=== PATIENT | female | born 1955 | race Caucasian/White ===

== ENCOUNTER 2022-11-02 09:17 | Outpatient (OUT) | payer MEDICARE, SELFPAY ==
[2022-11-02 10:28] LABS: Albumin Level 3.8 g/dL (3.4-5.0); BUN Creatinine Ratio 22.3; Calcium 8.7 mg/dL (8.5-10.1); Carbon Dioxide 26.4 mmol/L (21.0-32.0); Chloride 104 mmol/L (98-107); Chol HDL Ratio 2.2; Cholesterol 153 mg/dL (<=200); Estimated GFR (African America >60 (>=60); Estimated GFR (Non-African Ame 53 (>=60); Glucose 99 mg/dL (74-106); HDL Cholesterol 71 mg/dL (40-60); Phosphorus 3.4 mg/dL (2.6-4.7); Potassium 4.4 mmol/L (3.5-5.1); Sodium 139 mmol/L (136-145); Triglycerides 79 mg/dL (<=150); VLDL CHOLESTEROL 15.8 mg/dL
[2022-11-02 12:15] LABS: Microalbumin Urine Random <1.3 mg/dL (<=30.0)
[2022-11-03 13:08] LABS: C-Peptide, Serum 3.8 ng/mL (1.1-4.4)
== END 2022-11-02 09:18 | disposition home or self-care (01) ==
LOC: LAB 09:23
PROVIDERS: PCP Nurse Practitioner; Visit Provider Internal Medicine
DX: R79.89 Other specified abnormal findings of blood chemistry (principal); E11.65 Type 2 diabetes mellitus with hyperglycemia; E55.9 Vitamin D deficiency, unspecified; Z71.3 Dietary counseling and surveillance
CPT/HCPCS: 36415; 80061; 80069; 82043; 82306; 84681

== ENCOUNTER 2022-12-18 08:13 | Outpatient (OUT) | payer MEDICARE, SELFPAY ==
[2022-12-18 09:31] LABS: Chol HDL Ratio 2.1; Cholesterol 153 mg/dL (<=200); HDL Cholesterol 72 mg/dL (40-60); Triglycerides 66 mg/dL (<=150); VLDL CHOLESTEROL 13.2 mg/dL
== END 2022-12-18 08:14 | disposition home or self-care (01) ==
LOC: LAB 08:16
PROVIDERS: PCP Family Medicine
DX: Z00.00 Encounter for general adult medical examination without abnormal findings (principal); E78.5 Hyperlipidemia, unspecified
CPT/HCPCS: 36415; 80061

== ENCOUNTER 2022-12-18 08:20 | Outpatient (OUT) | payer MEDICARE, SELFPAY ==
[2022-12-18 08:53] LABS: Basophils Percent Auto 0.6 % (0.2-2.0); Eosinophils Absolute Auto 0.3 10^3/uL (0.0-0.7); Eosinophils Percent Auto 4.2 % (0.9-7.0); Hemoglobin 11.2 g/dL (12.0-16.0); Immature Granulocytes Abs Auto 0.02 10^3/uL (0.00-0.03); Immature Granulocytes Pct Auto 0.3 % (0.0-0.5); Lymphocytes Absolute Auto 2.6 10^3/uL (1.2-3.8); Lymphocytes Percent Auto 38.1 % (20.5-60.0); Mean Corpuscular Hemoglobin 29.7 pg (26.7-34.0); Mean Corpuscular Volume 92.8 fL (81.0-99.0); Monocytes Absolute Auto 0.8 10^3/uL (0.3-0.8); Monocytes Percent Auto 11.6 % (1.7-12.0); Neutrophils Absolute Auto 3.1 10^3/uL (1.4-6.5); Neutrophils Percent Auto 45.2 % (43.0-75.0); Platelet Count 253 10^3/uL (150-450); Red Blood Count 3.77 10^6/uL (4.20-5.40); Red Cell Distribution Width 13.2 % (11.0-15.0); White Blood Count 6.8 10^3/uL (4.0-11.0)
[2022-12-18 09:05] LABS: Erythrocyte Sedimentation Rate 30 mm/hr (<=30)
[2022-12-18 09:29] LABS: Alanine Aminotransferase 43 U/L (14-59); Albumin Level 3.6 g/dL (3.4-5.0); Alkaline Phosphatase 96 U/L (46-116); Anion Gap 12.1; Aspartate Amino Transferase 27 U/L (15-37); BUN Creatinine Ratio 26.7; Bilirubin Total 0.3 mg/dL (0.2-1.0); C Reactive Protein <0.2 mg/dL (<=1.0); Calcium 8.6 mg/dL (8.5-10.1); Carbon Dioxide 26.2 mmol/L (21.0-32.0); Chloride 105 mmol/L (98-107); Estimated GFR (African America >60 (>=60); Estimated GFR (Non-African Ame 54 (>=60); Globulin 3.6 g/dL; Glucose 106 mg/dL (74-106); Potassium 4.3 mmol/L (3.5-5.1); Sodium 139 mmol/L (136-145); Total Protein 7.2 g/dL (6.4-8.2)
== END 2022-12-18 08:21 | disposition home or self-care (01) ==
LOC: LAB 08:23
PROVIDERS: PCP Family Medicine; Visit Provider Internal Medicine Rheumatology
DX: Z00.00 Encounter for general adult medical examination without abnormal findings (principal); E78.5 Hyperlipidemia, unspecified; M06.9 Rheumatoid arthritis, unspecified
CPT/HCPCS: 36415; 80053; 80061; 85025; 85652; 86140

== ENCOUNTER 2023-02-15 08:47 | Outpatient (OUT) | payer MEDICARE, SELFPAY ==
--- NOTE | 2023-02-15 08:50 | XR_ITS ---
[address] [address] Patient Name: LJ DOLL MRN: [id number] date: 1955 Sex: F Assigned Patient Location: [facility] Current Patient Location: [facility] Accession/Order Number: [id number] Exam Date: 02/15/2023 09:04 Report Date: 02/15/2023 09:46 At the request of: MATT VILCHIS Procedure: XR DEXA axial skeleton EXAMINATION: XR DEXA axial skeleton HISTORY: Osteoporosis M81.0 COMPARISON: DEXA bone densitometry 07/14/2018 TECHNIQUE: Dual-energy X-ray absorptiometry (DXA) was performed. FINDINGS: SPINE ANALYSIS: Average bone mineral density is 1.818 g/cm2. T-score (standard deviation relative to young adult mean): 5.3 . +14.7% change since prior study. HIP ANALYSIS: Lowest bone mineral density is within the right femoral neck, 0.72 g/cm2. T-score (standard deviation relative to young adult mean): -1.8 . -3.8% change since prior study. XR/XR DEXA axial skeleton IMPRESSION: World [employer] Organization Classification: Osteopenia - Moderate Fracture Risk Electronically authenticated by: CHAPIN OROSCO Date: 02/15/2023 09:46
--- OUTSIDE RECORDS SUMMARY | 2023-03-23 18:45 | XMS_ITS | CCD ---
Author Name Unknown Address [address] [place] [address] Organization [facility] Care Team Providers Care Child Welfare Manager Name Role Phone PAYAM YU Unavailable Unavailable FOSTER, PAYAM Unavailable Unavailable FOSTER, PAYAM Unavailable Unavailable FOSTER, PAYAM Unavailable Unavailable UNKNOWN, PROVIDER Attending Unavailable HALIE, BREE Primary Care Unavailable UNKNOWN, PROVIDER Attending Unavailable AMBROSE, BREE Primary Care Unavailable UNKNOWN, PROVIDER Attending Unavailable AMBROSE, BREE Primary Care Unavailable UNKNOWN, PROVIDER Attending Unavailable HALIE, BREE Primary Care Unavailable UNKNOWN, PROVIDER Attending Unavailable HALIE, BREE Primary Care Unavailable Bree Ambrose Unavailable Unavailable Unavailable Dr. Ary Arrieta Attending Unavailable Bree Ambrose Referring Unavailable Halie, Bree Dominique Primary Care Unavailable Maranda, Dr. Kenroy Real Attending Bree Le Referring Unavailable Halie, Bree Dominique Primary Care Unavailable AMBROSE ., DR BREE Cisneros Admitting Unavailable AMBROSE ., DR BREE Cisneros Attending Unavailable AMBROSE ., DR BREE Cisneros Primary Care Unavailable NELDA, DR SARKAR Admitting Unavailable AMBROSE ., DR BREE Cisneros Primary Care Unavailable NELDA, DR SARKAR Attending Unavailable NELDA, DR SARKAR Consulting Unavailable HALIE ., DR BREE Cisneros Primary Care Unavailable MISC, DR LYLES Admitting Unavailable MISC, DR LYLES Attending Unavailable MISC, DR LYLES Consulting Unavailable AMBROSE ., DR BREE Cisneros Primary Care Unavailable KAMILAH, DR HUMA Falcon Admitting Unavailable KAMILAH, DR HUMA Falcon Attending Unavailable BREE AMBROSE Primary Care Physician ANNE JAIN Attending Unavailable HUMA TRIANA Attending Unavailable MD Bree Ambrose Primary Care Provider MD Fransisco Benavides Attending Provider Micaela Palomino Admitting Unavailable Micaela Palomino Attending Unavailable Arley Keller Attending Unavailable Arley Keller Attending Unavailable Arley Keller Attending Unavailable Micaela Palomino Attending Unavailable Micaela Palomino Attending Unavailable Arley Keller Attending Unavailable Micaela Palomino Attending Unavailable BREE AMBROSE Attending Unavailable Fransisco Benavides Attending Unavailable Fransisco Benavides Admitting Unavailable Bree Ambrose Primary Care Unavailable Allergies Allergy Classification Reported Allergen(s) Allergy Type Date of Onset Reaction(s) Facility (5 sources) adalimumab; Translations: [Humira] Drug Allergy Rash, Hives [facility] (4 sources) Hmg-Coa Reductase Inhibitors (Statins); Translations: [Statins] Allergy to drug (finding) [facility] (5 sources) oxaprozin; Translations: [Daypro] Drug Allergy INEFFECTIVE [facility] (3 sources) Antihistamine TABS; Translations: [Antihistamine TABS] Allergy to drug (finding) [facility] [address] [facility] Work Phone: (2 sources) black walnut pollen extract; Translations: [ZUOPIUD-HRA-MBQ REDUCTASE INHIBITORS] Drug Allergy 4 [facility] Repository (2 sources) Diclofenac; Translations: [DICLOFENAC] Drug Allergy 5 [facility] Repository (1 source) diphenhydrAMINE Drug Allergy 3 [facility] Repository (1 source) oxaprozin Drug Allergy 3 [facility] Repository (3 sources) diphenhydrAMINE; Translations: [diphenhydramine] Drug Allergy 3 VERY FOGGY BRAIN [facility] (1 source) HMG-CoA reductase inhibitor; Translations: [statins] Drug allergy MUSCLE CRAMPS [facility] (1 source) Acetaminophen / oxyCODONE; Translations: [OXYCODONE-ACETAMIN OPHEN] Drug Allergy 7 [facility] Repository (1 source) adalimumab; Translations: [ADALIMUMAB] Drug Allergy 3 [facility] Repository (1 source) oxaprozin; Translations: [OXAPROZIN] Drug Allergy 3 [facility] Repository Medications Current Medications Medication Drug Class(es) Dates Sig (Normalized) Sig (Original) acetaminophen 325 mg / HYDROcodone bitartrate 5 mg oral tablet (1 source) Opioid Agonist Start: 01-20-2021 [place] 325 mg-5 mg oral tablet 1 tab(s), Oral, q6hr for pain, 20 tab(s), Refill(s) 0, [facility]/pharmacy #[id number], 162, cm, 01/14/21 5:03:00 EDT, Height/Length Dosing, 100, kg, 01/14/21 5:03:00 EDT, Weight Dosing Start Date: 01/20/21 Status: Ordered amitriptyline hydrochloride 25 mg oral tablet (4 sources) Tricyclic Antidepressant Start: 01-13-2021 take 1 tablet by mouth once daily at bedtime amitriptyline 25 mg Tab 25 mg = 1 tab(s), Oral, Once a day (at bedtime), Refills(s) 0, Other (see comment) Start Date: 01/13/21 Status: Ordered Amitriptyline HC l TABS TAKE 1/2 tab at bedtime Quantity: 0 Refills: 0 Ordered: 21-Jul-2017 DO Active Calcium Citrate / Vitamin D (1 source) Start: 01-13-2021 take 1 tablet by mouth once daily calcium-vitamin D 1 TAB, Oral, Daily, Prophylaxis Start Date: 01/13/21 Status: Ordered carvedilol 3.125 mg oral tablet (4 sources) alpha-Adrenergi c Keenan, beta-Adrenergic Keenan Start: 01-13-2021 take 1 tablet by mouth twice daily carvedilol 3.125 mg Tab 3.125 mg = 1 tab(s), Oral, BID, Refills(s) 0, High blood pressure Start Date: 01/13/21 Status: Ordered take 1 tablet by mariluz th twice daily at mealtime Coreg 6.25 MG Oral Tablet TAKE 1 TABLET TWICE DAILY WITH MEALS. Quantity: 0 Refills: 0 Ordered: 12-Apr-2018 DO Active Celebrate Multivitamin oral capsule (1 source) Start: 01-13-2021 take 1 capsule by mouth once daily Celebrate Multivitamin oral capsule 1 cap(s), Oral, Daily, Prophylaxis Start Date: 01/13/21 Status: Ordered celecoxib 200 mg oral capsule (4 sources) Nonsteroidal Anti-inflammator y Drug Start: 01-13-2021 take 1 capsule by mouth once daily celecoxib 200 mg Cap 200 mg = 1 cap(s), Oral, Daily, Refills(s) 0, Inflammation Start Date: 01/13/21 Status: Ordered Erythromycin (1 source) Macrolide, Macrolide Antimicrobial Start: 01-20-2021 erythromycin ophthalmic 0.5% ointment 0.5 in, Eye-Both, QID, 3.5 gram, Refill(s) 1, [facility]/pharmacy #[id number], 162, cm, 01/14/21 5:03:00 EDT, Height/Length Dosing, 100, kg, 01/14/21 5:03:00 EDT, Weight Dosing Start Date: 01/20/21 Status: Ordered Enbrel (1 source) Tumor Necrosis Factor Keenan Start: 01-13-2021 inject 50 mg by subcutaneous injection every week Enbrel 50 mg, SubCutaneous, qWeek, Other (see comment) Start Date: 01/13/21 Status: Ordered furosemide 20 mg oral tablet (1 source) Loop Diuretic Start: 01-13-2021 take 1 tablet by mouth once daily furosemide 20 mg Tab 20 mg = 1 tab(s), Oral, Daily, Refills(s) 0, Other (see comment) Start Date: 01/13/21 Status: Ordered gabapentin 100 mg oral capsule (1 source) Anti-epileptic Agent Start: 01-13-2021 take 2 capsules by mouth at bedtime gabapentin 100 mg Cap 200 mg = 2 cap(s), Oral, Bedtime, Refills(s) 0, Other (see comment) Start Date: 01/13/21 Status: Ordered glucosamine sulfate 500 mg oral capsule (1 source) Start: 01-13-2021 take 1 capsule by mouth once daily glucosamine 500 mg Cap 500 mg = 1 cap(s), Oral, Daily, Prophylaxis Start Date: 01/13/21 Status: Ordered hydroxychloroquine sulfate 200 mg oral tablet (4 sources) Antimalarial, Antirheumatic Agent Start: 01-13-2021 take 1 tablet by mouth twice daily hydroxychloroquine 200 mg Tab 200 mg = 1 tab(s), Oral, BID, Refills(s) 0, Other (see comment) Start Date: 01/13/21 Status: Ordered 3 ml insulin glargine 100 unt/ml pen injector (4 sources) Insulin Analog Start: 01-13-2021 Lantus Solostar Pen 100 units/mL subcutaneous solution 30 unit(s), SubCutaneous, Daily, Refills(s) 0, Blood glucose Start Date: 01/13/21 Status: Ordered inject 10 [IU] by gonzalez bcutaneous injection twice daily Lantus SoloStar 100 UNIT/ML Subcutaneous Solution Pen-injector 10 units BID Quantity: 0 Refills: 0 Ordered: 21-Jul-2017 DO Active Insulin Lispro KwikPen 100 units/mL injectable solution (1 source) Start: 01-13-2021 Insulin Lispro KwikPen 100 units/mL injectable solution SubCutaneous, BIDAC, Refills(s) 0, Blood glucose Start Date: 01/13/21 Status: Ordered lisinopril 5 mg oral tablet (1 source) Angiotensin Converting Enzyme Inhibitor Start: 01-13-2021 take 2.5 mg by mouth once daily lisinopril 5 mg Tab 2.5 mg = 0.5 tab(s), Oral, Daily, Refills(s) 0, High blood pressure Start Date: 01/13/21 Status: Ordered metFORMIN hydrochloride 850 mg oral tablet (4 sources) Biguanide Start: 01-13-2021 take 1 tablet by mouth twice daily metformin 850 mg oral tablet 850 mg = 1 tab(s), Oral, BID, Refills(s) 0, Blood glucose Start Date: 01/13/21 Status: Ordered nitrofurantoin, macrocrystals 25 mg / nitrofurantoin, monohydrate 75 mg oral capsule (1 source) Nitrofuran Antibacterial Start: 06-30-2022 End: 07-07-2022 take 1 capsule by mouth twice daily Macrobid 100 mg Cap 100 mg = 1 cap(s), Oral, BID, X 7 day(s), # 14 cap(s), Refills(s) 0, Pharmacy: [facility]/pharmacy #[id number], 162, cm, 06/30/22 15:22:00 EDT, Height/Length Dosing, 93, kg, 06/30/22 15:22:00 EDT, Weight Dosing Start Date: 06/30/22 Stop Date: 07/07/22 Status: Ordered pantoprazole 40 mg delayed release oral tablet (4 sources) Proton Pump Inhibitor Start: 01-13-[address] Tab 40 mg = 1 tab(s), Oral, Daily, Refills(s) 0, Control of stomach acid Start Date: 01/13/21 Status: Ordered rosuvastatin calcium 5 mg oral tablet (1 source) HMG-CoA Reductase Inhibitor Start: 01-13-2021 take 1 tablet by mouth once daily at bedtime rosuvastatin 5 mg Tab 5 mg = 1 tab(s), Oral, Once a day (at bedtime), Refills(s) 0, Other (see comment) Start Date: 01/13/21 Status: Ordered sertraline 50 mg oral tablet (4 sources) Serotonin Reuptake Inhibitor Start: 01-13-2021 take 1 tablet by mouth once daily sertraline 50 mg Tab 50 mg = 1 tab(s), Oral, Daily, Refills(s) 0, Other (see comment) Start Date: 01/13/21 Status: Ordered Sertraline HCl - 50 MG Oral Tablet Quantity: 0 Refills: 0 Ordered: 12-Apr-2018 DO Active Completed/Discontinued Medications Medication Drug Class(es) Dates Sig (Normalized) Sig (Original) aspirin 81 mg delayed release oral tablet (3 sources) Platelet Aggregation Inhibitor, Nonsteroidal Anti-inflammatory Drug take 1 tablet by mouth once daily Aspirin 81 MG Oral Tablet Delayed Release TAKE 1 TABLET DAILY. Quantity: 0 Refills: 0 Ordered: 21-Jul-2017 DO Active Calcium Carbonate (3 sources) Tums E-X 750 LÁZARO W TAKE DIRECTED. Quantity: 0 Refills: 0 Ordered: 21-Jul-2017 DO Active 3 ml insulin lispro 100 unt/ml pen injector (3 sources) Insulin Analog HumaLOG KwikPen 100 UNIT/ML Subcutaneous Solution Pen-injector INJECT SUBCUTANEOUSLY DIRECTED. Quantity: 0 Refills: 0 Ordered: 21-Jul-2017 DO Active metoprolol tartrate 25 mg oral tablet (3 sources) beta-Adrenergic Keenan take 1 tablet by mouth twice daily Metoprolol Tartrate 25 MG Oral Tablet TAKE 1 TABLET TWICE DAILY. Quantity: 0 Refills: 0 Ordered: 21-Jul-2017 DO Active Multivitamins TABS (3 sources) Multivitamins TA BS TAKE 1 TABLET DAILY. Quantity: 0 Refills: 0 Ordered: 21-Jul-2017 DO Active tiZANidine 2 mg oral capsule (3 sources) Central alpha-2 Adrenergic Agonist take 1 capsule by mouth once daily at bedtime as needed Zanaflex 2 MG Oral Capsule 1 po qhs prn Quantity: 0 Refills: 0 Ordered: 21-Jul-2017 DO Active Problems Active Problems Problem Classification Problem Date Documented Da te Episodic/Chronic Chronic kidney disease (1 source) Chronic kidney disease stage 4 06-30-2022 Chronic Coronary atherosclerosis and other heart disease (2 sources) Atherosclerotic heart disease of [place] coronary artery without angina pectoris; Translations: [Atherosclerotic heart disease of [place] coronary artery without angina pectoris] Onset: 3 Chronic Diabetes mellitus with complications (4 sources) Type 2 diabetes mellitus with diabetic neuropathy, unspecified; Translations: [TYPE 2 DM W/DIABETIC NEUROPATHY UNS] Onset: 3 Chronic Diabetes mellitus without complication (1 source) Diabetes mellitus 01-13-2021 Chronic Disorders of lipid metabolism (3 sources) Hyperlipidemia; Translations: [Mixed hyperlipidemia] Onset: 3 06-30-2022 Chronic Essential hypertension (1 source) Hypertensive disorder 01-13-2021 Chronic Immunizations and screening for infectious disease (3 sources) Requires vaccination; Translations: [Need for prophylactic vaccination and inoculation against viral hepatitis] Episodic Infective arthritis and osteomyelitis (except that caused by tuberculosis or sexually transmitted disease) (1 source) 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-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 Occlusion or stenosis of precerebral arteries (1 source) Left carotid artery occlusion 06-30-2022 Chronic Osteoarthritis (3 sources) Osteoarthritis; Translations: [Osteoarthrosis, unspecified whether generalized or localized, site unspecified] Chronic Osteoporosis (1 source) Age-related osteoporosis without current pathological fracture; Translations: [Age-related osteoporosis without current pathological fracture] Onset: 3 Chronic Other and ill-defined heart disease (2 sources) Other ill-defined heart diseases; Translations: [Other ill-defined heart diseases] Onset: 3 Chronic Other circulatory disease (1 source) Raynaud's phenomenon 06-30-2022 Chronic Other connective tissue disease (2 sources) Presence of left artificial knee joint; Translations: [Presence of left artificial knee joint] Onset: 8 Chronic Other connective tissue disease (3 sources) H/O: musculoskeletal disease; Translations: [Personal history of other musculoskeletal disorders] Episodic Other connective tissue disease (1 source) Repeated falls; Translations: [REPEATED FALLS] Onset: 3 Episodic Other connective tissue disease (1 source) History of osteoporosis 01-13-2021 Episodic Other eye disorders (1 source) Ptosis of eyelid 01-13-2021 Episodic Other gastrointestinal disorders (3 sources) History of gastroesophageal reflux disease; Translations: [Personal history of other diseases of digestive system] Episodic Other hereditary and degenerative nervous system conditions (4 sources) Essential tremor; Translations: [ESSENTIAL TREMOR] Onset: 3 Chronic Other injuries and conditions due to external causes (1 source) History of falling; Translations: [HISTORY OF FALLING] Onset: 3 Episodic Other liver diseases (7 sources) Fatty (change of) liver, not elsewhere classified; Translations: [Fatty (change of) liver, not elsewhere classified] Onset: 9 Chronic Other liver diseases (3 sources) Hepatic fibrosis; Translations: [Hepatic fibrosis] Onset: 8 Chronic Other liver diseases (3 sources) Non-alcoholic fatty liver; Translations: [Other chronic nonalcoholic liver disease] Chronic Other liver diseases (1 source) Steatosis of liver 06-30-2022 Chronic Other liver diseases (3 sources) Alkaline phosphatase bone isoenzyme raised; Translations: [Other nonspecific abnormal serum enzyme levels] Episodic Other nervous system disorders (1 source) Lesion of sciatic nerve, unspecified lower limb; Translations: [LESION SCIATIC NERVE UNS LOWER LIMB] Onset: 2 Chronic Other nervous system disorders (1 source) Other abnormalities of gait and mobility; Translations: [OTHER ABNORMALITIES GAIT AND MOBILITY] Onset: 3 Episodic Other nervous system disorders (1 source) Unspecified abnormalities of gait and mobility; Translations: [UNS ABNORMALITIES GAIT AND MOBILITY] Onset: 3 Episodic Other non-traumatic joint disorders (3 sources) Polyarthropathy; Translations: [Unspecified polyarthropathy or polyarthritis, site unspecified] Chronic Other nutritional; endocrine; and metabolic disorders (3 sources) H/O: diabetes mellitus; Translations: [Personal history of other endocrine, metabolic, and immunity disorders] Episodic Other nutritional; endocrine; and metabolic disorders (3 sources) H/O: raised blood lipids; Translations: [Personal history of other endocrine, metabolic, and immunity disorders] Episodic Other screening for suspected conditions (not mental disorders or infectious disease) (3 sources) Imaging result abnormal; Translations: [Other nonspecific (abnormal) findings on radiological and other examinations of body structure] Chronic Other screening for suspected conditions (not mental disorders or infectious disease) (3 sources) Patient encounter status; Translations: [Special screening for malignant neoplasms of colon] Episodic Residual codes; unclassified (1 source) Obstructive sleep apnea syndrome 06-30-2022 Chronic Rheumatoid arthritis and related disease (1 source) Rheumatoid arthritis 01-13-2021 Chronic Screening and history of mental health and substance abuse codes (3 sources) H/O: depression; Translations: [Personal history of other mental disorders] Episodic Spondylosis; intervertebral disc disorders; other back problems (3 sources) Disorder of sacrum; Translations: [Disorders of sacrum] Episodic Past or Other Problems Problem Classification Problem Date Documented Da te Episodic/Chronic Deficiency and other anemia (1 source) Anemia Onset: 03-30-2019 06-30-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 Other connective tissue disease (4 sources) Other muscle spasm; Translations: [OTHER MUSCLE SPASM] Onset: 11-14-2021 Episodic Results Test Name Value Interpretation Reference Range Facil ity Blood Urea Nitrogenon 2022 Urea nitrogen [Mass/Vol] 25 mg/dL Normal 7-25 [facility] Comment on above: Performed By: #### M Leeroy, RENEAS, BUN, CA, CREAT #### [facility] [address] [place] [address] [place] Calciumon 03-16-2023 Calcium [Mass/Vol] 9.2 mg/dL Normal 8.6-10.3 [facility] Comment on above: Performed By: #### M G, PHOS, BUN, CA, CREAT #### [facility] [address] [place] [address] [place] Calcium [Mass/volume] in Ser um or PlasmaOrdered By: Fransisco Benavides on 03-16-2023 Calcium [Mass/Vol] 9.2 mg/dL 8.6-10.3 [facility] Creatinineon 03-16-2023 Creatinine [Mass/Vol] 1.04 mg/dL Normal 0.60-1.20 [facility] Comment on above: Performed By: #### M Leeroy, PHOS, BUN, CA, CREAT #### [facility] [address] [place] [id number] [place] GFR/1.73 sq M.predicted MDRD (S/P/Bld) [Vol rate/Area] 58.180 mL/min/{1.73_m2} Normal [facility] Comment on above: Performed By: #### M Leeroy, PHOS, BUN, CA, CREAT #### [facility] [address] Creatinine [Mass/volume] in Serum or PlasmaOrdered By: Fransisco Benavides on 03-16-2023 Creatinine [Mass/Vol] 1.04 mg/dL 0.60-1.20 [facility] Magnesiumon 03-16-2023 Magnesium [Mass/Vol] 1.5 mg/dL Low 1.9-2.7 [facility] Comment on above: Result Comment: PERF ORMED BY: [place] [address] PATHOLOGIST POULTRY PINNER NELDA TAYLOR M.D. Performed By: #### M Leeroy, PHOS, BUN, CA, CREAT #### [facility] [address] [place] [id number] [facility] Magnesium [Mass/volume] in S melvin or PlasmaOrdered By: Fransisco Benavides on 03-16-2023 Magnesium [Mass/Vol] 1.5 mg/dL 1.9-2.7 [facility] No Panel InformationOrdered By: Fransisco Benavides on 03-16-2023 Estimated GFR (CKD-EPI) 58.180 mL/Min [facility] Creatinine Clearanc e (Chem N/A [facility] Nurse Consultation Noteon Nurse Consultation Note Physical Exam Pt here for POC A1c, pt results 6.0 Assessment/Plan Diabetes (E11.9: Type 2 diabetes mellitus without complications) Medications amitriptyline 25 mg Tab, 25 mg= 1 tab(s), Oral, Once a day (at bedtime), 1 refills aspirin, 81 mg, Daily calcium-vitamin D, 1 TAB, Oral, Daily carvedilol 3.125 mg Tab, 3.125 mg= 1 tab(s), Oral, BID, 3 refills Celebrate Multivitamin oral capsule, 1 cap(s), Oral, Daily Enbrel, 50 mg, SubCutaneous, qWeek erythromycin ophthalmic 0.5% ointment, 0.5 in, Eye-Both, QID, 1 refills, Not taking furosemide 20 mg Tab, 20 mg= 1 tab(s), Oral, Daily, 3 refills gabapentin 100 mg Cap, 200 mg= 2 cap(s), Oral, Bedtime, 1 refills glucosamine 500 mg Cap, 500 mg= 1 cap(s), Oral, Daily hydroxychloroquine 200 mg Tab, 200 mg= 1 tab(s), Oral, BID, 1 refills Insulin Lispro KwikPen 100 units/mL injectable solution, SubCutaneous, BIDAC Lantus Solostar Pen 100 units/mL subcutaneous solution, 25 unit(s), SubCutaneous, Daily lisinopril 5 mg Tab, 2.5 mg= 0.5 tab(s), Oral, Daily, 3 refills metformin 850 mg oral tablet, 850 mg= 1 tab(s), Oral, BID [place] 325 mg-5 mg oral tablet, 1 tab(s), Oral, q6hr, PRN Ozempic 2 mg/1.5 mL (1 mg dose) subcutaneous solution, 1 mg, SubCutaneous, qWeek, 3 refills Pantoprazole [address] Tab, 40 mg= 1 tab(s), Oral, Daily, 3 refills rosuvastatin 5 mg Tab, 5 mg= 1 tab(s), Oral, Once a day (at bedtime), 3 refills sertraline 50 mg Tab, 50 mg= 1 tab(s), Oral, Daily, 3 refills Allergies Antihistamine (VERY FOGGY BRAIN) Daypro (INEFFECTIVE) Humira (Hives) statins (MUSCLE CRAMPS) Immunizations Vaccine Date Status Comments influenza virus vaccine, inactivated 12/22/2022 Recorded SARS-CoV-2 mRNA (dary 5y-11y) vac - Not Given Postpone due to refusal influenza virus vaccine, inactivated 01/22/2022 Recorded influenza virus vaccine, inactivated 01/17/2020 Recorded influenza virus vaccine, inactivated 01/04/2019 Recorded influenza virus vaccine, inactivated 12/31/2017 Recorded influenza virus vaccine, inactivated 02/16/2017 Recorded pneumococcal 23-valent vaccine 04/05/2015 Recorded pneumococcal 13-valent vaccine 11/21/2014 Recorded Lab Results Ambulatory Point of Care Results Hemoglobin POC: 6 (03/16/23 10:34:00) [facility] Phosphate [Mass/volume] in S melvin or PlasmaOrdered By: Fransisco Benavides on 03-16-2023 Phosphate [Mass/Vol] 3.6 mg/dL 2.5-4.5 [facility] Phosphoruson 03-16-2023 Phosphate [Mass/Vol] 3.6 mg/dL Normal 2.5-4.5 [facility] Comment on above: Performed By: #### M G, PHOS, BUN, CA, CREAT #### [facility] [address] Urea nitrogen [Mass/volume] in Serum or PlasmaOrdered By: Fransisco Benavides on 03-16-2023 Urea nitrogen [Mass/Vol] 25 mg/dL 7- [facility] Family Medicine Office/Clini c Noteon 03-03-2023 Family Medicine Office/Clinic Note HPI Staff Lj is a 67 year old female presenting to establish care Needs to review meds Establish Care: History: DM, CKD, JESSICA, RA, Liver steatosis, hyperlidemia Last provider: Halie Any recent labs: none Health Maintenance UTD: Colonoscopy: age 63 normal Mammogram: been 5-7 years since had one Pelvic/Pap: no longer does these flu: UTD Acute: Current issues/complaints: needs amoxicillin for the dentist in past Dr Ambrose would give her #30 as she has quite alot of dental work to be done History of Present Illness Lj Doll is a 67-year-old female who presents today to establish care. The patient has a significant history of kidney problems. She does not have a logistics manager. She claims she was unaware of her kidney issues and that Dr. Ambrose never informed her about them. She is under the care of Dr. Adhikari for her heart issues. The patient has an annual appointment with Dr. Low in [place] for steatosis. She mentions that she undergoes a liver ultrasound and blood tests. She expresses that her condition is improving. She has been taking Celebrex for a couple of years. She consults Dr. Benavides for her rheumatoid arthritis. She mentions that her Celebrex dosage was reduced from 2 tablets to [address] Ambrose had prescribed it. She has been on this adjusted dosage for a few years now. She is on metformin and consults Dr. Barker, an clerk supervisor in [place], for her diabetes. She has been under his care for 9 months. She reports that her last HbA1c was 6.3 percent a month ago. She denies having type 1 diabetes. She has sleep apnea and uses her CPAP machine every night. The patient has hyperlipidemia, and her last cholesterol level was 166 mg/dL. She is also seeing Dr. Triana once a year as she has neuropathy. She sees Dr. Payam Yu for her hips and knees. She underwent a hip and knee arthroplasty. She had an infection in her knee, after which she was referred to him by Dr. Hernandez. Dr. Antonina Lutz performed a nerve reduction test on her. She reports having essential tremors. She feels paresthesia when leaning or putting excessive pressure on her elbows. The patient is experiencing several problems in her lumbar region. The patient hails from [place]. She mentions that she got and relocated to [place], where she lived for 13 years. She worked at [employer] for 37.5 years and took assisted at the age of [age]. Review of Systems PHQ Score Initial Depression Screen Score: 0 SCORE Physical Exam Vitals & Measurements T: 36.5 ?C(Oral) HR: 76(Peripheral) RR: 16 BP: 124/70 SpO2: 96% HT: 63 in HT: 160 cm WT: 92.1 kg WT: 202.62 lb BMI: 35.98 General: alert, no acute distress Cardiovascular: regular rate and rhythm, normal peripheral perfusion Respiratory: Lungs CTA, respirations non labored Extremities: no deformity, no trauma Neurological: oriented x 4, LOC appropriate for age, CN II-XII intact, motor strength equal & normal bilaterally, speech normal Abdomen: Soft, nontender, nondistended. Assessment/Plan 1. JESSICA (obstructive sleep apnea) (G47.33: Obstructive sleep apnea (adult) (pediatric)) Patient uses CPAP and we encouraged the patient to continue using. No issues at this time. 2. Hyperlipidemia (E78.5: Hyperlipidemia, unspecified) Patient is on a statin. Patient states her last cholesterol was at goal. 3. Long-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 (Z79.4: alf (current) use of insulin) Patient sees Dr. Barker and gets titrated. Last HbA1c was 6.3 percent. 4. 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 We will monitor. We will give the patient Augmentin to use for her dental procedures given the history of an infected joint. 5. Major depressive disorder in remission (F32.5: Major depressive disorder, single episode, in full remission) Encouraged the patient to continue taking medications. 6. Morbid obesity (E66.01: Morbid (severe) obesity due to excess calories) Diet and exercise advised. 7. BMI 35.0-35.9,adult (Z68.35: Body mass index [BMI] 35.0-35.9, adult) BMI education given. 8. Class 1 obesity due to excess calories in adult (E66.09: Other obesity due to excess calories) As above. 9. 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 10. RA (rheumatoid arthritis) (M06.9: Rheumatoid arthritis, unspecified) Continues to see Dr. Benavides. 11. CAD in [place] artery (I25.10: Atherosclerotic heart disease of [place] coronary artery without angina pectoris) Continue seeing Dr. Adhikari. No chest pain today. 12. Diabetic neuropathy (E11.40: Type 2 diabetes mellitus with diabetic neuropathy, unspecified) Patient continues to see neurology. We will get a plan of care HbA1c. More than 50 minutes was spent with the patient discussing previous diagnosis, going over her specialist, and medications. We will (more content not included)... 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 Type 1 diabetes mellitus with hyperlipidemia 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-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, 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 Immunodeficiency due to drugs Major depressive disorder in remission Morbid obesity BMI 35.0-35.9,adult Class 1 obesity due to excess calories in adult 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 Your Care Team Attending Physician - Arley Keller MD Primary Care Physician - Arley Keller MD This Is Your Medications List acetaminophen-hydrocodone ([place] 325 mg-5 mg oral tablet) amitriptyline (amitriptyline 25 mg Tab) aspirin calcium-vitamin D carvedilol (carvedilol 3.125 mg Tab) celecoxib (celecoxib 200 mg Cap) erythromycin ophthalmic (erythromycin ophthalmic 0.5% ointment) etanercept (Enbrel) furosemide (furosemide 20 mg Tab) gabapentin (gabapentin 100 mg Cap) glucosamine (glucosamine 500 mg Cap) hydroxychloroquine (hydroxychloroquine 200 mg Tab) insulin glargine (Lantus Solostar Pen 100 units/mL subcutaneous solution) insulin lispro (Insulin Lispro KwikPen 100 units/mL injectable solution) lisinopril (lisinopril 5 mg Tab) metformin (metformin 850 mg oral tablet) multivitamin with minerals (Celebrate Multivitamin oral capsule) pantoprazole (Pantoprazole [address] Tab) rosuvastatin (rosuvastatin 5 mg Tab) semaglutide (Ozempic 2 mg/1.5 mL (1 mg dose) subcutaneous solution) sertraline (sertraline 50 mg Tab) Procedures Performed Blepharoplasty of upper eyelid (01/20/2021), Appendectomy, Arthroplasty of the hip, Arthroplasty of the knee, Carpal tunnel release, Excision of ganglion cyst, History of placement of stent for coronary artery disease, Release of trigger finger. Discharge Vitals Temperature (Oral) 36.5 ?C Heart Rate (Peripheral) 76 Respiratory Rate 16 Blood Pressure 124/70 Height 160 cm Height 63 in Weight 92.1 kg Weight 202.62 lb BMI 35.98 What to do next Scheduled Follow-Up Appointments Wednesday. 2023 9:15 AM EDT With: Krishna SIMENTAL, Arley Heredia Where: [place] [id number] [place] [id number]- \.br\ Medications\.br\ What How Much When Instructions\.br\ Unchanged acetaminophen-hydrocodone ([place] 325 mg-5 mg oral tablet) 1 Tablets By Mouth Every 6 hours as needed for for pain\.br\ Unchanged amitriptyline (amitriptyline 25 mg Tab) 1 Tablets By Mouth Once a day (at bedtime)\.br\ Unchanged aspirin 81 Milligram Every day\.br\ Unchanged calcium-vitamin D 1 TAB By Mouth Every day\.br\ Unchanged carvedilol (carvedilol 3.125 mg Tab) 1 Tablets By Mouth 2 times a day\.br\ Unchanged celecoxib (celecoxib 200 mg Cap) 1 Capsules By Mouth Every day\.br\ Unchanged erythromycin ophthalmic (erythromycin ophthalmic 0.5% ointment) 0.5 Inch Both eyes 4 times a day\.br\ Unchanged etanercept (Enbrel) 50 Milligram Subcutaneous Every week\.br\ Unchanged furosemide (furosemide 20 mg Tab) 1 Tablets By Mouth Every day\.br\ Unchanged gabapentin (gabapentin 100 mg Cap) 2 Capsules By Mouth At bedtime\.br\ Unchanged glucosamine (glucosamine 500 mg Cap) 1 Capsules By Mouth Every day\.br\ Unchanged hydroxychloroquine (hydroxychloroquine 200 mg Tab) 1 Tablets By Mouth 2 times a day\.br\ Unchanged insulin glargine (Lantus Solostar Pen 100 units/ mL subcutaneous solution) 25 Units Subcutaneous Every day\.br\ Unchanged insulin lispro (Insulin Lispro KwikPen 100 units/ mL injectable solution) Subcutaneous Twice a day (before meals)\.br\ Unchanged lisinopril (lisinopril 5 mg Tab) 0.5 Tablets By Mouth Every day\.br\ Unchanged metformin (metformin 850 mg oral tablet) 1 Tablets By Mouth 2 times a day\.br\ Unchanged multivitamin with minerals (Celebrate Multivitamin oral capsule) 1 Capsules By Mouth Every day\.br\ Unchanged pantoprazole (Pantoprazole [address] Tab) 1 Tablets By Mouth Every day\.br\ Unchanged rosuvastatin (rosuvastatin 5 mg Tab) 1 Tablets By Mouth Once a day (at bedtime)\.br\ Unchanged semaglutide (Ozempic 2 mg/ 1.5 mL (1 mg dose) subcutaneous solution) 1 Milligram Subcutaneous Every week\.br\ Unchanged sertraline (sertraline 50 mg Tab) 1 Tablets By Mouth Every day\.br\ Allergies\.br\ Antihistamine (VERY FOGGY BRAIN)\.br\ Daypro (INEFFECTIVE)\.br\ Humira (Hives)\.br\ statins (MUSCLE CRAMPS)\.br\ Problems\.br\ Ongoing - Any problem that you are currently receiving treatment for.\.br\ Anemia\.br\ Carotid occlusion, left\.br\ Chronic kidney disease (CKD), stage IV (severe)\.br\ Hyperlipidemia\.br\ Immunodeficiency due to drugs\.br\ Long-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\.br\ Major depressive disorder in remission\.br\ Morbid obesity\.br\ JESSICA (obstructive sleep apnea)\.br\ Raynaud's phenomenon\.br\ Steatosis of liver\.br\ Type 1 diabetes mellitus with hyperlipidemia\.br\ 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 Please share your experience with us by completing your survey. We appreciate your feedback and thank you for choosing us for your care.\.br\ \.br\ [facility] Physician Referralon 023 Physician Referral [id number] [facility] Pre-Visit Planningon 023 Pre-Visit Planning From: Anne Crowley To: Krishna SIMENTAL, Arley Heredia; Sent: 02/24/2023 09:52:16 EST Subject: Pre-Visit Planning Due Date/Time: 02/24/2023 09:52:00 EST Caller Name: LJ DOLL; Caller Number: H , M La Dr. Keller. During a pre-visit planning chart review, I noted the following documentation in the medical record indicates that this patient had BMI of 35.51 on 12/08/2022 and a diagnosis of Type 1 diabetes mellitus with hyperlipidemia and steatosis of liver noted on Current Problem List. If BMI during this current visit is greater than 35: Based on your medical judgment, can you further clarify the following? I can update the Chronic Problem List with your response if you would like. -Morbid obesity (please also include additional diagnosis to reflect current BMI) -Class 3 severe obesity with serious comorbidity in adult (please also include additional diagnosis to reflect current BMI) -Other (please specify): -Unable to determine In responding to this request, please exercise your independent professional judgment. The fact that a question is asked does not imply that any particular answer is desired or expected. If you have any questions, please feel free to contact me per TEAMS or . Thank you! Anne Crowley LPN From: Arley Keller MD To: Anne Crowley; Sent: 02/28/2023 12:31:24 EST Subject: RE: Pre-Visit Planning Caller Name: LJ DOLL; Caller Number: H , M Morbid obesity?please add Normal [address] [place] [address] Pre-Visit Planning From: Anne Crowley To: Arley Keller MD; Sent: 02/24/2023 09:45:27 EST Subject: Pre-Visit Planning Due Date/Time: 02/24/2023 09:45:00 EST Caller Name: LJ DOLL; Caller Number: H , M Grabiel Keller. During a pre-visit planning chart review, I noted the following documentation in the medical record: Current Medication List: amitriptyline and sertraline. PHQ-9 Score: =1 on 08/04/2022. 01/05/2023 [facility] Consult Note (page 4): Based on your medical judgment, can you please clarify which, if any, of the following conditions are present? I can update the Chronic Problem List with your response if you would like. Major Depressive Disorder, Single Episode ? Major depressive disorder, single episode, mild ? Major depressive disorder, single episode, moderate ? Major depressive disorder, single episode, severe without mention of psychotic behavior ? Major depressive disorder, single episode, in partial remission ? Major depressive disorder, single episode in full remission Major Depressive Disorder, Recurrent ? Major depressive disorder, recurrent, mild ? Major depressive disorder, recurrent, moderate ? Major depressive disorder, recurrent, severe without mention of psychotic behavior ? Major depressive disorder, recurrent, in partial remission ? Major depressive disorder, recurrent, in full remission -Other (Please Specify): In responding to this request, please exercise your independent professional judgement. The fact that a question is asked does not imply that any particular answer is desired or expected. If you have any questions, please feel free to contact me at extension [phone]. Thank you! Anne Crowley LPN From: Arley Keller MD To: Anne Crowley; Sent: 02/28/2023 12:31:06 EST Subject: RE: Pre-Visit Planning Caller Name: LJ DOLL; Caller Number: , Major depressive disorder currently in remission?please change Normal [address] [place] [address] Pre-Visit Planning From: Anne Crowley To: Arley Keller MD; Sent: 02/24/2023 09:16:26 EST Subject: Pre-Visit Planning Due Date/Time: 02/24/2023 09:16:00 EST Caller Name: LJ DOLL; Caller Number: Tiffany , Luis Good morning Dr. Keller. During a pre-visit planning chart review, I noted the following documentation in the medical record: Current Problem List: Rheumatoid arthritis. Current Medication List: etanercept and hydroxychloroquine. Based on the documentation above do you feel the patient has any of the following? Please document all that may apply: -Immunodeficiency due to drugs -Other (please specify): -Unable to determine In responding to this request, please exercise your independent professional judgment. The fact that a question is asked does not imply that any particular answer is desired or expected. If you have any questions, please feel free to contact me at extension [phone]. Thank you! 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?please add [address] [facility] [id number] FF [facility] Consultation Noteon 01-14-20 Consultation Note [id number] [facility] Retail - Clinical Noteon Retail - Clinical Note [id number]:127 [facility] Auth for Release of Medical Recordson 01-04-2023 Auth for Release of Medical Records [id number]:127 [facility] Immunization Recordson 12-24 Immunization Records [id number]:127 [facility] Ambulatory Visit Summaryon 0 12-08-2022 Ambulatory Visit Summary LJ DOLL :1955 Visit Date:12/08/2022 Ambulatory Visit Instructions Your Diagnosis Annual visit for general adult medical examination without abnormal findings Screening mammography declined Hyperlipidemia Chronic kidney disease (CKD), stage IV (severe) Rheumatic joint disease JESSICA (obstructive sleep apnea) BMI 35.0-35.9,adult Class 1 obesity due to excess calories in adult Your Care Team Attending Physician - Arley Keller MD Primary Care Physician - HALIE SIMENTAL, BREE Cisneros This Is Your Medications List acetaminophen-hydrocodone ([place] 325 mg-5 mg oral tablet) amitriptyline (amitriptyline 25 mg Tab) aspirin calcium-vitamin D carvedilol (carvedilol 3.125 mg Tab) celecoxib (celecoxib 200 mg Cap) erythromycin ophthalmic (erythromycin ophthalmic 0.5% ointment) etanercept (Enbrel) furosemide (furosemide 20 mg Tab) gabapentin (gabapentin 100 mg Cap) glucosamine (glucosamine 500 mg Cap) hydroxychloroquine (hydroxychloroquine 200 mg Tab) insulin glargine (Lantus Solostar Pen 100 units/mL subcutaneous solution) insulin lispro (Insulin Lispro KwikPen 100 units/mL injectable solution) lisinopril (lisinopril 5 mg Tab) metformin (metformin 850 mg oral tablet) multivitamin with minerals (Celebrate Multivitamin oral capsule) pantoprazole (Pantoprazole [address] Tab) rosuvastatin (rosuvastatin 5 mg Tab) semaglutide (Ozempic 2 mg/1.5 mL (1 mg dose) subcutaneous solution) sertraline (sertraline 50 mg Tab) Procedures Performed Blepharoplasty of upper eyelid (01/20/2021), Appendectomy, Arthroplasty of the hip, Arthroplasty of the knee, Carpal tunnel release, Excision of ganglion cyst, History of placement of stent for coronary artery disease, Release of trigger finger. Discharge Vitals Heart Rate (Peripheral) 70 Blood Pressure 128/72 Height 160 cm Height 63 in Weight 90.9 kg Weight 199.98 lb BMI 35.51 What to do next Scheduled Follow-Up Appointments Wednesday 9:30 AM EDT Where: [facility] Family Medicine Office/Clini c Noteon 12-08-2022 Family Medicine Office/Clinic Note Chief Complaint Subsequent Medicare Wellness Visit Review of Systems PHQ Score Initial Depression Screen Score: 0 Physical Exam Vitals & Measurements HR: 70(Peripheral) BP: 128/72 SpO2: 96% HT: 160 cm HT: 63 in WT: 90.9 kg WT: 199.98 lb BMI: 35.51 Assessment/Plan 1. Annual visit for general adult medical examination without abnormal findings (Z00.00: Encounter for general adult medical examination without abnormal findings) The patient was given a customized and personalized print out of all the current AHRQ USPSTF?s recommendations for preventative services and all current CDC recommended immunizations, relevant risk recommendations and the following patient brochures were given. Reviewed Medicare preventative services checklist. [facility]-Falls Prevention and home safety screening reviewed. Patient had one fall in last 12 months, voices no worry about falling, exhibits no problems with sitting, standing, or ambulation. Pt voices understanding with keeping walk way area free of clutter to prevent tripping and/or falling. [place] Advance Directives reviewed, has copy at home, encouraged to bring to office for scanning to chart. Patient denies any problems with ADL?s and Instrumental ADL?s. Cognitive screening completed with memory and clock face drawing, no deficits noted. Immunization Record reviewed with the patient. Discussed Shingrix vaccine with educational handout and availability. Allergies and medications reviewed and up to date. Patient denies concerns with taking medication as prescribed, reviewed OTC medications with patient, medication list up to date. Blood tests were reviewed: Discussed what tests need to be updated (Dr. Barker has ordered micro albumin, CMP, A1c. Lipid ordered today- patient is completing all together at outside facility). Labs were ordered, will have completed prior to next PCP visit. Colonoscopy up to date, records requested. DEXA scan completed by Dr. Benavides. Mammogram declined at this time. Reviewed pain symptoms with patient: patient has generalized pain from arthritis. Takes medication as prescribed, states effective. Reviewed all outside providers that patient follows. Last visit summary notes available in chart and/or have been requested. AWV has been scheduled, 12/14/2023 Medicare provides yearly screening for alcohol and depression concerns. This is completed during our Medicare Wellness visit for those who do not have a current diagnosis of depression or concerns with alcohol use. I spent a total of 17 minutes on this date of service which included preparing to see the patient, face to face patient care, completing clinical documentation, obtaining and/or reviewing separately obtained history, counseling and educating the patient with handouts. Explanations were provided with reviewing questionnaires. AUDIT risk assessment screening completed, risk score 1, with patient denying concerns with use. Completed PHQ-2 risk assessment for depression with risk score 0, negative findings. Patient has been reminded to notify the provider if there would be a change or concerns with symptoms with fear, unable to sleep, worrying too much or feeling down and/or sad with lost of interest with daily activities. Will continue to monitor with screening yearly during Medicare wellness visits. 2. Screening mammography declined (Z53.20: Procedure and treatment not carried out because of patient's decision for unspecified reasons) Recommended mammogram screening discussed with patient during today's Medicare Wellness visit. Patient reminded with the importance of continued Breast Self-Awareness at home. Easy to read demonstration on how to perform a self breast exam: What to look for and feel for was reviewed and provided to patient. Mammogram declined at this time. 3. Hyperlipidemia (E78.5: Hyperlipidemia, unspecified) Reviewed healthy lifestyle with low fat diet and exercise regimen. When you are overweight our body produces more lipids. Risk also increases with family history of hyperlipidemia and with monitoring alcohol use and avoid smoking. Patient voices understanding with importance of monitoring dietary intake to reduce risk factors associated with CVA. Taking statin medications daily as directed. Will continue to follow up with office visits with updated labs as directed. Lipid panel ordered. 4. Chronic kidney disease (CKD), stage IV (severe) (N18.4: Chronic kidney disease, stage 4 (severe)) Reviewed health kidney nutritional handout with importance of preventing strain on the kidneys. Monitor sodium intake daily, educational handout reviewed and provided to assist the patient with a better understanding which types of food, including frozen foods, canned food and fast foods. Work towards a dietary intake with low potassium foods and limit protein intake. Reminded importance to avoid NSAID use and monitor for swelling in the body. Continue to monitor BP with importance of keeping under control with repeated blood work to be (more content not included)... [facility] Comment on above: Result Comment: Elec tronically Signed By: Micaela Beltrán.br\Date and Time Signed: 12/08/22 12:45 EDT\.br\Electronically Co-Signed By: Bruce Villagomez\.br\Date and Time Co- Signed: 12/08/22 10:48 EDT Patient Educationon 12-09-19 Patient Education Caregiving Fall Prevention in the Home, Adult Falls can cause injuries and affect people of all ages. There are many simple things that you can do to make your home safe and to help prevent falls. Ask for help when making these changes, if needed. What actions can I take to prevent falls? General instructions ? Use good lighting in all rooms. Replace any light bulbs that burn out, turn on lights if it is dark, and use night-lights. ? Place frequently used items in [id number] places. Lower the shelves around your home if necessary. ? Set up furniture so that there are clear paths around it. Avoid moving your furniture around. ? Remove throw rugs and other tripping hazards from the floor. ? Avoid walking on wet floors. ? Fix any uneven floor surfaces. ? Add color or contrast paint or tape to grab bars and handrails in your home. Place contrasting color strips on the first and last steps of staircases. ? When you use a stepladder, make sure that it is completely opened and that the sides and supports are firmly locked. Have someone hold the ladder while you are using it. Do not climb a closed stepladder. ? Know where your pets are when moving through your home. What can I do in the bathroom? ? Keep the floor dry. Immediately clean up any water that is on the floor. ? Remove soap buildup in the tub or shower regularly. ? Use nonskid mats or decals on the floor of the tub or shower. ? Attach bath mats securely with double-sided, nonslip rug tape. ? If you need to sit down while you are in the shower, use a plastic, nonslip stool. ? Install grab bars by the toilet and in the tub and shower. Do not use towel bars as grab bars. What can I do in the bedroom? ? Make sure that a bedside light is easy to reach. ? Do not use oversized bedding that reaches the floor. ? Have a firm chair that has side arms to use for getting dressed. What can I do in the kitchen? ? Clean up any spills right away. ? If you need to reach for something above you, use a sturdy step stool that has a grab bar. ? Keep electrical cables out of the way. ? Do not use floor [place] citizen or wax that makes floors slippery. If you must use wax, make sure that it is non-skid floor wax. What can I do with my stairs? ? Do not leave any items on the stairs. ? Make sure that you have a light switch at the top and the bottom of the stairs. Have them installed if you do not have them. ? Make sure that there are handrails on both sides of the stairs. Fix handrails that are broken or loose. Make sure that handrails are as long as the staircases. ? Install non-slip stair treads on all stairs in your home. ? Avoid having throw rugs at the top or bottom of stairs, or secure the rugs with carpet tape to prevent them from moving. ? Choose a carpet design that does not hide the edge of steps on the stairs. ? Check any carpeting to make sure that it is firmly attached to the stairs. Fix any carpet that is loose or worn. What can I do on the outside of my home? ? Use bright outdoor lighting. ? Regularly repair the edges of walkways and driveways and fix any cracks. ? Remove high doorway thresholds. ? Trim any shrubbery on the main path into your home. ? Regularly check that handrails are securely fastened and in good repair. Both sides of all steps should have handrails. ? Install guardrails along the edges of any raised decks or porches. ? Clear walkways of debris and clutter, including tools and rocks. ? Have leaves, snow, and ice cleared regularly. ? Use sand or salt on walkways during winter months. ? In the garage, clean up any spills right away, including grease or oil spills. What other actions can I take? ? Wear closed-toe shoes that fit well and support your feet. Wear shoes that have rubber soles or low heels. ? Use mobility aids as needed, such as canes, walkers, scooters, and crutches. ? Review your medicines with your health care provider. Some medicines can cause dizziness or changes in blood pressure, which increase your risk of falling. Talk with your health care provider about other ways that you can decrease your risk of falls. This may include working with a physical therapist or fitness trainer to improve your strength, balance, and endurance. Where to find more information ? Centers for Disease Control and Prevention, [place]: www.cdc.gov ? National [place] on Aging: www.lexus.nih.gov Contact a health care provider if: ? You are afraid of falling at home. ? You feel weak, drowsy, or dizzy at home. ? You fall at home. Summary ? There are many simple things that you can do to make your home safe and to help prevent falls. ? Ways to make your home safe include removing tripping hazards and installing grab bars in the bathroom. ? Ask for help when making these changes in your home. This information is not intended to replace advice given to you by your health ca (more content not included)... [facility] Screenson 12-08-2022 Screens [id number]: 127 [facility] Retail - Clinical Noteon Retail - Clinical Note [id number]:127 [facility] Auth for Release of Medical Recordson 10-07-2022 Auth for Release of Medical Records [id number]:127 [facility] Insurance Correspondence Off iceon 10-01-2022 Insurance Correspondence Office [id number]:127 [facility] Office Visiton 09-28-2022 Follow-up visit [id number] Shelley Doll 1955 F Date Provider Department Center 09/28/2022 [facility] No family history on file Level of Service:63745 NE OFFICE/OUTPATIENT ESTABLISHED MOD MDM 30-39 MIN [facility] Physician Referralon 023 Physician Referral [id number]:127 [facility] Ambulatory Visit Summaryon 0 08-04-2022 Ambulatory Visit Summary LJ DOLL :1955 Visit Date:08/04/2022 Ambulatory Visit Instructions Your Diagnosis BMI 35.0-35.9,adult Class 1 obesity due to excess calories in adult Lesion of face Your Care Team Attending Physician - BREE AMBROSE MD Primary Care Physician - BREE AMBROSE MD This Is Your Medications List acetaminophen-hydrocodone ([place] 325 mg-5 mg oral tablet) amitriptyline (amitriptyline 25 mg Tab) calcium-vitamin D carvedilol (carvedilol 3.125 mg Tab) celecoxib (celecoxib 200 mg Cap) erythromycin ophthalmic (erythromycin ophthalmic 0.5% ointment) etanercept (Enbrel) furosemide (furosemide 20 mg Tab) gabapentin (gabapentin 100 mg Cap) glucosamine (glucosamine 500 mg Cap) hydroxychloroquine (hydroxychloroquine 200 mg Tab) insulin glargine (Lantus Solostar Pen 100 units/mL subcutaneous solution) insulin lispro (Insulin Lispro KwikPen 100 units/mL injectable solution) lisinopril (lisinopril 5 mg Tab) metformin (metformin 850 mg oral tablet) multivitamin with minerals (Celebrate Multivitamin oral capsule) pantoprazole (Pantoprazole [address] Tab) rosuvastatin (rosuvastatin 5 mg Tab) semaglutide (Ozempic 2 mg/1.5 mL (1 mg dose) subcutaneous solution) sertraline (sertraline 50 mg Tab) Procedures Performed Blepharoplasty of upper eyelid (01/20/2021), Appendectomy, Arthroplasty of the hip, Arthroplasty of the knee, Carpal tunnel release, Excision of ganglion cyst, History of placement of stent for coronary artery disease, Release of trigger finger. Discharge Vitals Heart Rate (Peripheral) 60 Respiratory Rate 14 Blood Pressure 130/72 Height 162 cm Height 64 in Weight 94.1 kg Weight 207.02 lb BMI 35.86 What to do next Someone Will Contact You Regarding These Appointments [facility] External Ambulatory Referral, Dermatology, DR FRANCO LESION ABOVE RIGHT EYE E&M, 08/04/22 11:04:00 EDT, Lesion of face Medications What How Much When Instructions Unchanged acetaminophen-hydrocodone ([place] 325 mg-5 mg oral tablet) 1 Tablets By Mouth Every 6 hours as needed for for pain Unchanged amitriptyline (amitriptyline 25 mg Tab) 1 Tablets By Mouth Once a day (at bedtime) Unchanged calcium-vitamin D 1 TAB By Mouth Every day Unchanged carvedilol (carvedilol 3.125 mg Tab) 1 Tablets By Mouth 2 times a day Unchanged celecoxib (celecoxib 200 mg Cap) 1 Capsules By Mouth Every day Unchanged erythromycin ophthalmic (erythromycin ophthalmic 0.5% ointment) 0.5 Inch Both eyes 4 times a day Unchanged etanercept (Enbrel) 50 Milligram Subcutaneous Every week Unchanged furosemide (furosemide 20 mg Tab) 1 Tablets By Mouth Every day Unchanged gabapentin (gabapentin 100 mg Cap) 2 Capsules By Mouth At bedtime Unchanged glucosamine (glucosamine 500 mg Cap) 1 Capsules By Mouth Every day Unchanged hydroxychloroquine (hydroxychloroquine 200 mg Tab) 1 Tablets By Mouth 2 times a day Unchanged insulin glargine (Lantus Solostar Pen 100 units/ mL subcutaneous solution) 30 Units Subcutaneous Every day Unchanged insulin lispro (Insulin Lispro KwikPen 100 units/ mL injectable solution) Subcutaneous Twice a day (before meals) Unchanged lisinopril (lisinopril 5 mg Tab) 0.5 Tablets By Mouth Every day Unchanged metformin (metformin 850 mg oral tablet) 1 Tablets By Mouth 2 times a day Unchanged multivitamin with minerals (Celebrate Multivitamin oral capsule) 1 Capsules By Mouth Every day Unchanged pantoprazole (Pantoprazole [address] Tab) 1 Tablets By Mouth Every day Unchanged rosuvastatin (rosuvastatin 5 mg Tab) 1 Tablets By Mouth Once a day (at bedtime) Unchanged semaglutide (Ozempic 2 mg/ 1.5 mL (1 mg dose) subcutaneous solution) 1 Milligram Subcutaneous Every week Unchanged sertraline (sertraline 50 mg Tab) 1 Tablets By Mouth Every day Medications and Immunizations Administered Not Given SARS-CoV-2 mRNA (dary 5y-11y) vac, Postpone due to refusal Allergies Antihistamine (VERY FOGGY BRAIN) Daypro (INEFFECTIVE) Humira (Hives) statins (MUSCLE CRAMPS) Problems Ongoing - Any problem that you are currently receiving treatment for. Anemia Carotid occlusion, left Chronic kidney disease (CKD), stage IV (severe) Hyperlipidemia JESSICA (obstructive sleep apnea) Raynaud's phenomenon Rheumatic joint disease Steatosis of liver [facility] Ambulatory Visit Summary LJ DOLL :1955 Visit Date:08/04/2022 Ambulatory Visit Instructions Your Diagnosis BMI 35.0-35.9,adult Class 1 obesity due to excess calories in adult Your Care Team Attending Physician - BREE AMBROSE MD Primary Care Physician - BREE AMBROSE MD This Is Your Medications List acetaminophen-hydrocodone ([place] 325 mg-5 mg oral tablet) amitriptyline (amitriptyline 25 mg Tab) calcium-vitamin D carvedilol (carvedilol 3.125 mg Tab) celecoxib (celecoxib 200 mg Cap) erythromycin ophthalmic (erythromycin ophthalmic 0.5% ointment) etanercept (Enbrel) furosemide (furosemide 20 mg Tab) gabapentin (gabapentin 100 mg Cap) glucosamine (glucosamine 500 mg Cap) hydroxychloroquine (hydroxychloroquine 200 mg Tab) insulin glargine (Lantus Solostar Pen 100 units/mL subcutaneous solution) insulin lispro (Insulin Lispro KwikPen 100 units/mL injectable solution) lisinopril (lisinopril 5 mg Tab) metformin (metformin 850 mg oral tablet) multivitamin with minerals (Celebrate Multivitamin oral capsule) pantoprazole (Pantoprazole [address] Tab) rosuvastatin (rosuvastatin 5 mg Tab) semaglutide (Ozempic 2 mg/1.5 mL (1 mg dose) subcutaneous solution) sertraline (sertraline 50 mg Tab) Procedures Performed Blepharoplasty of upper eyelid (01/20/2021), Appendectomy, Arthroplasty of the hip, Arthroplasty of the knee, Carpal tunnel release, Excision of ganglion cyst, History of placement of stent for coronary artery disease, Release of trigger finger. Discharge Vitals Heart Rate (Peripheral) 60 Respiratory Rate 14 Blood Pressure 130/72 Height 162 cm Height 64 in Weight 94.1 kg Weight 207.02 lb BMI 35.86 Medications What How Much When Instructions Unchanged acetaminophen-hydrocodone ([place] 325 mg-5 mg oral tablet) 1 Tablets By Mouth Every 6 hours as needed for for pain Unchanged amitriptyline (amitriptyline 25 mg Tab) 1 Tablets By Mouth Once a day (at bedtime) Unchanged calcium-vitamin D 1 TAB By Mouth Every day Unchanged carvedilol (carvedilol 3.125 mg Tab) 1 Tablets By Mouth 2 times a day Unchanged celecoxib (celecoxib 200 mg Cap) 1 Capsules By Mouth Every day Unchanged erythromycin ophthalmic (erythromycin ophthalmic 0.5% ointment) 0.5 Inch Both eyes 4 times a day Unchanged etanercept (Enbrel) 50 Milligram Subcutaneous Every week Unchanged furosemide (furosemide 20 mg Tab) 1 Tablets By Mouth Every day Unchanged gabapentin (gabapentin 100 mg Cap) 2 Capsules By Mouth At bedtime Unchanged glucosamine (glucosamine 500 mg Cap) 1 Capsules By Mouth Every day Unchanged hydroxychloroquine (hydroxychloroquine 200 mg Tab) 1 Tablets By Mouth 2 times a day Unchanged insulin glargine (Lantus Solostar Pen 100 units/ mL subcutaneous solution) 30 Units Subcutaneous Every day Unchanged insulin lispro (Insulin Lispro KwikPen 100 units/ mL injectable solution) Subcutaneous Twice a day (before meals) Unchanged lisinopril (lisinopril 5 mg Tab) 0.5 Tablets By Mouth Every day Unchanged metformin (metformin 850 mg oral tablet) 1 Tablets By Mouth 2 times a day Unchanged multivitamin with minerals (Celebrate Multivitamin oral capsule) 1 Capsules By Mouth Every day Unchanged pantoprazole (Pantoprazole [address] Tab) 1 Tablets By Mouth Every day Unchanged rosuvastatin (rosuvastatin 5 mg Tab) 1 Tablets By Mouth Once a day (at bedtime) Unchanged semaglutide (Ozempic 2 mg/ 1.5 mL (1 mg dose) subcutaneous solution) 1 Milligram Subcutaneous Every week Unchanged sertraline (sertraline 50 mg Tab) 1 Tablets By Mouth Every day Medications and Immunizations Administered Not Given SARS-CoV-2 mRNA (dary 5y-11y) vac, Postpone due to refusal Allergies Antihistamine (VERY FOGGY BRAIN) Daypro (INEFFECTIVE) Humira (Hives) statins (MUSCLE CRAMPS) Problems Ongoing - Any problem that you are currently receiving treatment for. Anemia Carotid occlusion, left Chronic kidney disease (CKD), stage IV (severe) Hyperlipidemia JESSICA (obstructive sleep apnea) Raynaud's phenomenon Rheumatic joint disease Steatosis of liver [facility] Medicine Office/Clini c Noteon 08-04-2022 Family Medicine Office/Clinic Note Chief Complaint lesion on forehead ? removal HPI Staff check lesion on forehead, possible removal gets pink, crusty and peels and has done this 3 times Seen by Micaela who recommend KK look at it and possibly remove Review of Systems PHQ Score Initial Depression Screen Score: 0 Physical Exam Vitals & Measurements HR: 60(Peripheral) RR: 14 BP: 130/72 SpO2: 96% HT: 64 in HT: 162 cm WT: 94.1 kg WT: 207.02 lb BMI: 35.86 Assessment/Plan LESION OF UNKNOWN ETIOLOGY WILL REFER TO DR FRANCO FOR E&M. 1. BMI 35.0-35.9,adult (Z68.35: Body mass index [BMI] 35.0-35.9, adult) Ordered: Body Mass Index (BMI) documented 3008F Current tobacco non-user 1036F Depression Screening Negative 3352F Influenza immunization status assessed 1030F Most recent diastolic blood pressure <80 mm Hg 3078F Patient screen for fall risk: no falls in last year or 1 fall with no injury in last year 1101F Systolic BP 130-139 mm Hg (Most Recent) 3075F 2. Class 1 obesity due to excess calories in adult (E66.09: Other obesity due to excess calories) Ordered: Body Mass Index (BMI) documented 3008F Current tobacco non-user 1036F Depression Screening Negative 3352F Influenza immunization status assessed 1030F Most recent diastolic blood pressure <80 mm Hg 3078F Patient screen for fall risk: no falls in last year or 1 fall with no injury in last year 1101F Systolic BP 130-139 mm Hg (Most Recent) 3075F Lesion of face (L98.9: Disorder of the skin and subcutaneous tissue, unspecified) Ordered: [facility] External Ambulatory Referral Follow-up No qualifying data available Problem List/Past Medical History Ongoing Anemia Carotid occlusion, left Chronic kidney disease (CKD), stage IV (severe) Hyperlipidemia JESSICA (obstructive sleep apnea) Raynaud's phenomenon Rheumatic joint disease Steatosis of liver Historical No qualifying data Procedure/Surgical History Blepharoplasty of upper eyelid (01/20/2021), Appendectomy, Arthroplasty of the hip, Arthroplasty of the knee, Carpal tunnel release, Excision of ganglion cyst, History of placement of stent for coronary artery disease, Release of trigger finger. Medications amitriptyline 25 mg Tab, 25 mg= 1 tab(s), Oral, Once a day (at bedtime) calcium-vitamin D, 1 TAB, Oral, Daily carvedilol 3.125 mg Tab, 3.125 mg= 1 tab(s), Oral, BID Celebrate Multivitamin oral capsule, 1 cap(s), Oral, Daily celecoxib 200 mg Cap, 200 mg= 1 cap(s), Oral, Daily Enbrel, 50 mg, SubCutaneous, qWeek erythromycin ophthalmic 0.5% ointment, 0.5 in, Eye-Both, QID, 1 refills, Not taking furosemide 20 mg Tab, 20 mg= 1 tab(s), Oral, Daily gabapentin 100 mg Cap, 200 mg= 2 cap(s), Oral, Bedtime glucosamine 500 mg Cap, 500 mg= 1 cap(s), Oral, Daily hydroxychloroquine 200 mg Tab, 200 mg= 1 tab(s), Oral, BID Insulin Lispro KwikPen 100 units/mL injectable solution, SubCutaneous, BIDAC Lantus Solostar Pen 100 units/mL subcutaneous solution, 30 unit(s), SubCutaneous, Daily lisinopril 5 mg Tab, 2.5 mg= 0.5 tab(s), Oral, Daily metformin 850 mg oral tablet, 850 mg= 1 tab(s), Oral, BID Glendale 325 mg-5 mg oral tablet, 1 tab(s), Oral, q6hr, PRN, Not taking Ozempic 2 mg/1.5 mL (1 mg dose) subcutaneous solution, 1 mg, SubCutaneous, qWeek Pantoprazole [address] Tab, 40 mg= 1 tab(s), Oral, Daily rosuvastatin 5 mg Tab, 5 mg= 1 tab(s), Oral, Once a day (at bedtime) sertraline 50 mg Tab, 50 mg= 1 tab(s), Oral, Daily Allergies Antihistamine (VERY FOGGY BRAIN) Daypro (INEFFECTIVE) Humira (Hives) statins (MUSCLE CRAMPS) Social History Alcohol - Denies Alcohol Use, 01/13/2021 Household alcohol concerns: No., 06/30/2022 Substance Abuse - Denies Substance Abuse, 01/13/2021 Household substance abuse concerns: No., 06/30/2022 Tobacco - Denies Tobacco Use, 01/13/2021 Never (less than 100 in lifetime) Tobacco Use:. Never Smokeless Tobacco Use:. Household tobacco concerns: No., 08/04/2022 Family History Family history is negative Immunizations Vaccine Date Status Comments SARS-CoV-2 mRNA (tozinameran 5y-11y) vac - Not Given Postpone due to refusal influenza virus vaccine, inactivated 01/22/2022 Recorded influenza virus vaccine, inactivated 01/17/2020 Recorded influenza virus vaccine, inactivated 01/04/2019 Recorded influenza virus vaccine, inactivated 12/31/2017 Recorded influenza virus vaccine, inactivated 02/16/2017 Recorded pneumococcal 23-valent vaccine 04/05/2015 Recorded pneumococcal 13-valent vaccine 11/21/2014 Recorded [facility] Comment on above: Result Comment: Elec tronically Signed By: HALIE SIMENTAL, BREE Cisneros\.br\Date and Time Signed: 08/04/22 11:05 EDT Consultation Noteon 07-07-19 Consultation Note [id number]:127 [facility] Coding Summary.on 07-04-2022 Coding Summary. CD:[id number] [file] [id number] (more content not included)... [facility] C Urineon 07-03-2022 Bacteria identified Cx Nom (U) Microbiology PROCEDURE: Urine Culture [R1] SOURCE: U CleanCatch BODY SITE: COLLECTED DATE/TIME: 06/30/2022 15:43 EDT RECEIVED DATE/TIME: 06/30/2022 18:00 EDT START DATE/TIME: 06/30/2022 18:00 EDT FREE TEXT SOURCE: Micaela BeltránMicaela FINAL REPORTS Final Report [] Verified Date/Time: 07/03/2022 10:45 EDT 5,000 cfu/ml Escherichia coli SUSCEPTIBILITY RESULTS LEGEND: S=Susceptible, N/R=Not Reported, Blank=Data not available, or drug not advisable or tested, I=Intermediate, ESBL=Extended spectrum beta-lactamase, R=Resistant, TFG=Thymidine-dependent strain, CHEO=Beta- lactamase positive, MARY=mcg/m;(mg/L), S*=Predicted susceptible interp, R*=Predicted resistant interp EC Antibiotic MARY Dilutn MARY Interp Amikacin <=16 S Ampicillin >16 R Ampicillin/ <=8/4 S Sulbactam Aztreonam <=4 S Cefazolin <=2 S Cefepime <=2 S Cefoxitin <=8 S Ceftazidime <=1 S Ceftazidime/ <=8 S Avibactam Ceftriaxone <=1 S Ciprofloxacin >2 R Ertapenem <=0.5 S Gentamicin <=4 S Levofloxacin >4 R Meropenem <=1 S Nitrofurantoin <=32 S Piperacillin/ <=16 S Tazobactam Tetracycline <=4 S Tigecycline <=2 S Tobramycin <=4 S Trimethoprim/ <=2/38 S Sulfa Performing Locations R1: This test [facility] performed at: [facility], [address] [place] [address], [address] , [place], [facility] Comment on above: Performed By: #### [id number] ####[facility] [id number] [place] [address] Ambulatory Visit Summaryon 0 06-30-2022 Ambulatory Visit Summary LJ DOLL :1955 Visit Date:06/30/2022 Ambulatory Visit Instructions Your Diagnosis Urinary urgency, Urinary urgency BMI 35.0-35.9,adult Non-smoker Tests Performed Urnls Dip Stick Auto w/o Microscopy POC 75469 Your Care Team Attending Physician - Micaela Beltrán Primary Care Physician - HALIE SIMENTAL, BREE Cisneros This Is Your Medications List acetaminophen-hydrocodone ([place] 325 mg-5 mg oral tablet) amitriptyline (amitriptyline 25 mg Tab) calcium-vitamin D carvedilol (carvedilol 3.125 mg Tab) celecoxib (celecoxib 200 mg Cap) erythromycin ophthalmic (erythromycin ophthalmic 0.5% ointment) etanercept (Enbrel) furosemide (furosemide 20 mg Tab) gabapentin (gabapentin 100 mg Cap) glucosamine (glucosamine 500 mg Cap) hydroxychloroquine (hydroxychloroquine 200 mg Tab) insulin glargine (Lantus Solostar Pen 100 units/mL subcutaneous solution) insulin lispro (Insulin Lispro KwikPen 100 units/mL injectable solution) lisinopril (lisinopril 5 mg Tab) metformin (metformin 850 mg oral tablet) multivitamin with minerals (Celebrate Multivitamin oral capsule) nitrofurantoin (Macrobid 100 mg Cap) pantoprazole (Pantoprazole [address] Tab) rosuvastatin (rosuvastatin 5 mg Tab) sertraline (sertraline 50 mg Tab) Procedures Performed Blepharoplasty of upper eyelid (01/20/2021), Appendectomy, Arthroplasty of the hip, Arthroplasty of the knee, Carpal tunnel release, Excision of ganglion cyst, History of placement of stent for coronary artery disease, Release of trigger finger. Discharge Vitals Heart Rate (Peripheral) 78 Blood Pressure 166/88 Height 162 cm Height 64 in Weight 93 kg Weight 204.6 lb BMI 35.44 What to do next Scheduled Follow-Up Appointments Wednesday. 2022 10:40 AM EDT With: HALIE SIMENTAL, BREE Cisneros Where: [facility] Medicine Office/Clini c Noteon 06-30-2022 Family Medicine Office/Clinic Note Chief Complaint urinary urgency HPI Staff Lj is a 67 year old female who presents today for a possible UTI. Onset: 06/26/22 Frequency- yes Urgency- very Small volume void- no Dysuria- no Pressure- present Back pain- no Nocturia- no Fever/chills- no Nausea/vomiting- no UTI or other reason for antbx's last 30 days- no History of Present Illness pt presents today with urinary urgency. she denies other symptoms. pt states in the past she has had UTI's with no symptoms. Review of Systems PHQ Score Initial Depression Screen Score: 0 ROS - Provider Constitutional: no fever, no chills, no sweats, no fatigue Respiratory: no shortness of breath, no cough, no orthopnea, no wheezing. Cardiovascular: no chest pain, no palpitations, no edema. Neurologic: no headache, no dizziness, no numbness, no weakness. : urinary urgency. denies frequency, hesitancy or dysuria Physical Exam Vitals & Measurements HR: 78(Peripheral) BP: 166/88 SpO2: 97% HT: 64 in HT: 162 cm WT: 93 kg WT: 204.6 lb BMI: 35.44 General: alert, no acute distress ENMT: oral mucosa moist, no pharyngeal erythema or exudate Cardiovascular: regular rate and rhythm, normal peripheral perfusion Respiratory: Lungs CTA, respirations non labored Extremities: no deformity, no trauma Neurological: oriented x 4, LOC appropriate for age, CN II-XII intact, motor strength equal & normal bilaterally, speech normal Assessment/Plan 1. Urinary urgency, (R39.15: Urgency of urination)Urinary urgency pt presents today with urinary urgency. denies other symptoms. UTI borderline positive, will send urine for culture. all questions answered. RTC as needed Ordered: nitrofurantoin, 100 mg = 1 cap(s), Oral, BID, X 7 day(s), # 14 cap(s), Refills(s) 0, Pharmacy: [facility]/pharmacy #[id number], 162, cm, 06/30/22 15:22:00 EDT, Height/Length Dosing, 93, kg, 06/30/22 15:22:00 EDT, Weight Dosing Urine Culture Urnls Dip Stick Auto w/o Microscopy POC 11936 BMI 35.0-35.9,adult (Z68.35: Body mass index [BMI] 35.0-35.9, adult) BMI education complete Ordered: Body Mass Index (BMI) documented 3008F Non-smoker (Z78.9: Other specified health status) continue not smoking Ordered: Current tobacco non-user 1036F Follow-up No qualifying data available Problem List/Past Medical History Ongoing Anemia Carotid occlusion, left Chronic kidney disease (CKD), stage IV (severe) Hyperlipidemia JESSICA (obstructive sleep apnea) Raynaud's phenomenon Rheumatic joint disease Steatosis of liver Historical No qualifying data Procedure/Surgical History Blepharoplasty of upper eyelid (01/20/2021), Appendectomy, Arthroplasty of the hip, Arthroplasty of the knee, Carpal tunnel release, Excision of ganglion cyst, History of placement of stent for coronary artery disease, Release of trigger finger. Medications amitriptyline 25 mg Tab, 25 mg= 1 tab(s), Oral, Once a day (at bedtime) calcium-vitamin D, 1 TAB, Oral, Daily carvedilol 3.125 mg Tab, 3.125 mg= 1 tab(s), Oral, BID Celebrate Multivitamin oral capsule, 1 cap(s), Oral, Daily celecoxib 200 mg Cap, 200 mg= 1 cap(s), Oral, Daily Enbrel, 50 mg, SubCutaneous, qWeek erythromycin ophthalmic 0.5% ointment, 0.5 in, Eye-Both, QID, 1 refills furosemide 20 mg Tab, 20 mg= 1 tab(s), Oral, Daily gabapentin 100 mg Cap, 200 mg= 2 cap(s), Oral, Bedtime glucosamine 500 mg Cap, 500 mg= 1 cap(s), Oral, Daily hydroxychloroquine 200 mg Tab, 200 mg= 1 tab(s), Oral, BID Insulin Lispro KwikPen 100 units/mL injectable solution, SubCutaneous, BIDAC Lantus Solostar Pen 100 units/mL subcutaneous solution, 30 unit(s), SubCutaneous, Daily lisinopril 5 mg Tab, 2.5 mg= 0.5 tab(s), Oral, Daily Macrobid 100 mg Cap, 100 mg= 1 cap(s), Oral, BID metformin 850 mg oral tablet, 850 mg= 1 tab(s), Oral, BID Glendale 325 mg-5 mg oral tablet, 1 tab(s), Oral, q6hr, PRN Pantoprazole [address] Tab, 40 mg= 1 tab(s), Oral, Daily rosuvastatin 5 mg Tab, 5 mg= 1 tab(s), Oral, Once a day (at bedtime) sertraline 50 mg Tab, 50 mg= 1 tab(s), Oral, Daily Allergies Antihistamine (VERY FOGGY BRAIN) Daypro (INEFFECTIVE) Humira (Hives) statins (MUSCLE CRAMPS) Social History Alcohol - Denies Alcohol Use, 01/13/2021 Household alcohol concerns: No., 06/30/2022 Substance Abuse - Denies Substance Abuse, 01/13/2021 Household substance abuse concerns: No., 06/30/2022 Tobacco - Denies Tobacco Use, 01/13/2021 Never (less than 100 in lifetime) Tobacco Use:. Never Smokeless Tobacco Use:. Household tobacco concerns: No., 06/30/2022 Family History Family history is negative Immunizations Vaccine Date Status influenza virus vaccine, inactivated 01/22/2022 Recorded influenza virus vaccine, inactivated 01/17/2020 Recorded influenza virus vaccine, inactivated 01/04/2019 Recorded influenza virus vaccine, inactivated 12/31/2017 Recorded influenza virus vaccine, inactivated 02/16/2017 Recorded pneumococcal 23-valent vaccine 04/05/2015 Recorded (more content not included)... Normal [facility] Comment on above: Result Comment: Elec tronically Signed By: Micaela Beltrán\.br\Date and Time Signed: 06/30/22 15:47 EDT EMG Electromyographyon 06-23 EMG Electromyography [id number]:127 [facility] PROTEIN ELECTROPHERESISon Albumin [Mass/Vol] 3.8 g/dL Normal 2.9-4.4 [facility] Comment on above: Performed By: #### P RTELEC #### [facility] [address] [place] [address] Dr. Jennifer Dodd Albumin/Globulin [Mass ratio] 1.2 {ratio} Normal 0.7-1 .7 [facility] Comment on above: Performed By: #### P RTELEC #### [facility] [address] [place] [address] Dr. Jennifer Dodd Mppoj-6-Iymwjlpa 0.2 g/dL Normal 0.0-0.4 [facility] Comment on above: Performed By: #### P RTELEC #### [facility] [address] [place] [address] Dr. Jennifer Dodd Tswmm-1-Xrmompkx 0.8 g/dL Normal 0.4-1.0 [facility] Comment on above: Performed By: #### P RTELEC #### [facility] [address] [place] [address] Dr. Jennifer Dodd Beta Globulin 1.1 g/dL Normal 0.7-1.3 [facility] Comment on above: Performed By: #### P RTELEC #### [facility] [address] [place] [address] Dr. Jennifer Dodd Gamma Globulin 0.9 g/dL Normal 0.4-1.8 [facility] Comment on above: Performed By: #### P RTELEC #### [facility] [address] [place] [address] Dr. Jennifer Dodd Globulin (S) [Mass/Vol] 3.1 g/dL Normal 2.2-3.9 [facility] Comment on above: Performed By: #### P RTELEC #### [facility] [address] [place] [address] Dr. Jennifer Dodd M-Jimbo Not Observed Normal Not Observed [facility] Comment on above: Performed By: #### P RTELEC #### [facility] [address] [place] [address] Dr. Jennifer Dodd PDF . Normal [facility] Comment on above: Performed By: #### P RTELEC #### [facility] [address] [place] [address] Dr. Jennifer Dodd Please note: Comment Normal [facility] Comment on above: Result Comment: Prot ein electrophoresis scan will follow via computer, mail, or timber poisoner delivery. Performed By: #### P RTELEC #### [facility] [address] [address] [address] Jennifer Dodd Protein [Mass/Vol] 6.9 g/dL Normal 6.0-8.5 [facility] Comment on above: Performed By: #### P RTELEC #### [facility] [address] [address] [address] Jennifer Dodd TSHon 05-21-2022 TSH 1.479 uIU/mL Normal 0.358-3.740 [facility] Comment on above: Performed By: #### T SH #### [facility] [address] [place] [address] Dr. Jennifer Dodd VIT B12 AND FOLATEon 023 Cobalamin (Vitamin B12) [Mass/Vol] 738.0 pg/mL Normal 193.0-986.0 [facility] Comment on above: Performed By: #### B 12FOL #### [facility] [address] [address] [address] Jennifer Dodd FOLATE 25.70 ng/mL Normal 8.60-58.90 [facility] Comment on above: Performed By: #### B 12FOL #### [facility] [address] [place] [address] Dr. Jennifer Dodd ENHANCED LIVER FIBROSIS TEST on 01-28-2022 ELF (TM) Score 10.76 Critically high <9.80 [facility] Comment on above: Result Comment: ELF( TM) Score Interpretation: Risk cut-offs to assess the likelihood of progression to cirrhosis and liver-related clinical events within 3.9 years following baseline ELF score (IQR: 14.0-22.4 months)*: Lower risk < 9.80 Mid risk 9.80 - 11.29 Higher risk >11.29 Note: The ELF(TM) Score is a unitless numerical value. *Unruly SA, Kristian VW, Debi T, et al. Selonsertib for patients with bridging fibrosis or compensated cirrhosis due to FRIEND: Results from randomized phase III STELLAR trials. J Hepatol. 2020 Oct;73(1):26-39. Performed By: #### E LF #### [facility] [address] [address] [address] Jennifer Dodd Established Visit (Gastroent erology)on 12-23-2021 Established Visit (Gastroenterology) Diagnoses/Problems Assessed NAFLD (nonalcoholic fatty liver disease) (571.8) (K76.0) Orders NAFLD (nonalcoholic fatty liver disease) MISCELLANEOUS TEST; Status:Active; Requested for:[id number]; Perform:Lab Services - Lab To Draw (Non-Blood Test); Order Comments:ENHANCED LIVER FIBROSIS (ELF) TEST: [id number] CPT: 0014M LABCORPSERUM 2.5 ML, MINIMUM 1 ML. GEL-BARRIER TUBE OR RED-TOP TUBEREFRIGERATE; Due:[id number];Ordered; For:NAFLD (nonalcoholic fatty liver disease); Ordered By:Kenroy Low; Patient Discussion/Summary If you have any questions, do not hesitate to call the Hepatology Nurse Coordinator at [phone]. PLEASE CALL IN 2022 FOR ORDERS. [X ] LABS: ELF TEST. HAVE RESULTS FAXED TO OUR OFFICE, [X ] FIBROSCAN ONCE A YEAR (Specialized test that measures scarring and fat in the liver) - Call to schedule: [facility] and [place]: [phone]. - [place]: [phone] [X ] FOLLOW UP: IN 1 YEAR -Call to schedule [phone], Option 1 Provider Impressions we will check ELF test to confirm fibroscan findings This patient has NAFLD without advanced fibrosis diet and exercise were encouraged we will repeat fibroscan annually we will see this patient in 1 year 30 minutes spent discussing condition, explaining results of tests and formulating plan of care Chief Complaint A telephone visit (audio only) between the patient (at the originating site) and the provider (at the distant site) was utilized to provide this telehealth service. Verbal consent was requested and obtained from LJ DOLL on this date, 12/23/2021 02:40 PM , for a telehealth visit. NAFLD History of Present Illness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 she is unchanged Upper Gastrointestinal: no abdominal pain, no eructation, no difficulty swallowing, no early satiety, no heartburn, no jaundiced, no nausea, no pain while swallowing. Lower Gastrointestinal: no abdominal swelling, no bloating, no constipation, no diarrhea, no fecal incontinence, no bowel urgency. Liver Disease no alteration in sleep wake cycle, no ankle swelling, no cognitive impairment, no confusion, no icterus. Symptom History: Modifying Factors: Associated Symptoms: Skin: there are no skin symptoms. Eyes: there are no eye symptoms. Ears: there are no ear symptoms. Nose: there are no nasal symptoms. Mouth/Throat/Teeth: there are no oral symptoms. Neck: there are no neck symptoms. Cardiovascular: there are no cardiovascular symptoms. Review of Systems Constitutional: no fever and no chills. ENT: no nosebleeds and no sore throat. Cardiovascular: the heart rate was not slow and the heart rate was not fast. Active Problems Problems Abnormal finding on imaging (793.99) (R93.89) Colon cancer screening (V76.51) (Z12.11) High serum bone-specific alkaline phosphatase (790.5) (R74.8) NAFLD (nonalcoholic fatty liver disease) (571.8) (K76.0) Need for vaccination against hepatitis B virus (V05.3) (Z23) Past Medical History Problems Abnormal finding on imaging (793.99) (R93.89) Colon cancer screening (V76.51) (Z12.11) History of Disorder of sacrum (724.6) (M53.3) High serum bone-specific alkaline phosphatase (790.5) (R74.8) History of depression (V11.8) (Z86.59) History of diabetes mellitus (V12.29) (Z86.39) History of fibromyalgia (V13.59) (Z87.39) History of gastroesophageal reflux (GERD) (V12.79) (Z87.19) History of hyperlipidemia (V12.29) (Z86.39) NAFLD (nonalcoholic fatty liver disease) (571.8) (K76.0) Need for vaccination against hepatitis B virus (V05.3) (Z23) History of Osteoarthrosis (715.90) (M19.90) 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) Surgical History Problems History of Arthroscopy Knee History of Biopsy Of Liver History of Hysterectomy History of Total Knee Replacement Left Social History Problems Denies alcohol consumption (V49.89) (Z78.9) Never a smoker No illicit drug use Allergies Medication Humira Rash; Recorded By: Whitney Wiseman; 04/12/2018 9:58:30 AM Antihistamine TABS Recorded By: Mary Araiza; 07/28/2017 9:28:35 AM Daypro Recorded By: Mary Araiza; 07/28/2017 9:28:35 AM Statins Recorded By: Mary Araiza; 07/28/2017 9:28:35 AM Current Meds Medication NameInstruction Amitriptyline HCl TABSTAKE 1/2 tab at bedtime Aspirin 81 MG Oral Tablet Delayed ReleaseTAKE 1 TABLET DAILY. Celecoxib 200 MG Oral CapsuleTAKE 1 CAPSULE DAILY NEEDED. Coreg 6.25 MG Oral TabletTAKE 1 TABLET TWICE DAILY WITH MEALS. Glucophage 850 MG TABSTAKE 1 TABLET TWICE DAILY WITH MEALS. HumaLOG KwikPen 100 UNIT/ML Subcutaneous Solution Pen-injectorINJECT SUBCUTANEOUSLY DIRECTED. Lantus SoloStar 100 UNIT/ML Subcutaneous Solution Pen-tdppshyx38 units BID Metoprolol Tartrate 25 MG Oral TabletTAKE 1 TABLET TWICE DAILY. Multivitamins TABSTAKE 1 TABLET DAILY. Plaquenil 200 MG Oral TabletTAKE 1 TABLET TWICE DAILY WITH FOOD. Pro (more content not included)... Normal [facility] ALBUMIN, URINE SPOTon 2021 ALBUMIN,URINE <7.0 Normal Not Established [facility] Comment on above: Performed By: #### A LBSP #### [address] [id number] ALBUMIN/CREAT RATIO SEE COMMENT Normal 0.0 - 30.0 [facility] Comment on above: Result Comment: One or more analytes used in this calculation is outside of the analytical measurement range. Calculation cannot be performed. Performed By: #### A LBSP #### [address] [id number] CREATININE,URINE 20.2 mg/dL Normal 20.0 - 320.0 [facility] Comment on above: Performed By: #### A LBSP #### [address] [id number] C PEPTIDEon 12-02-2021 C PEPTIDE 0.8 ng/mL Normal 0.7 - 3.9 [facility] Comment on above: Performed By: #### C PEPT #### [facility] [address] [place] [address] C Reactive Protein, Serumon 12-02-2021 CRP [Mass/Vol] mg/L MG-Cardiol og-[place] 101 Work Phone: Comment on above: REF VALUE< 1.00 C-REACTIVE PROTEINon 022 CRP [Mass/Vol] mg/L Normal [facility] Comment on above: Result Comment: REF VALUE < 1.00 Performed By: #### C RP #### [address] [id number] CBC AND DIFFERENTIALon 12-02 % AUTOMATED IMMATURE GRAN 0.2 % Normal 0.0 - 0.9 [facility] Comment on above: Result Comment: Melyssa ture Granulocyte Count (IG) includes promyelocytes, myelocytes and metamyelocytes but does not include bands. Percent differential counts (%) should be interpreted in the context of the absolute cell counts (cells/L). Performed By: #### C BCDF #### [address] [id number] Basophils (Bld) [#/Vol] 0.04 10*3/uL Normal 0.00 - 0.1 0 [facility] Comment on above: Performed By: #### C BCDF #### [address] [id number] Basophils/100 WBC (Bld) 0.6 % Normal 0.0 - 2.0 [facility] Comment on above: Performed By: #### C BCDF #### [address] [id number] Eosinophils (Bld) [#/Vol] 0.22 10*3/uL Normal 0.00 - 0 .70 [facility] Comment on above: Performed By: #### C BCDF #### [address] [id number] Eosinophils/100 WBC (Bld) 3.5 % Normal 0.0 - 6.0 [facility] Comment on above: Performed By: #### C BCDF #### [address] [id number] Erythrocyte distribution wid th (RBC) [Ratio] 13.9 % Normal 11.5 - 14.5 [facility] [place] Comment on above: Performed By: #### C BCDF #### [address] [id number] Hematocrit (Bld) [Volume fraction] 36.9 % Normal 36.0 - 46.0 [facility] [place] Comment on above: Performed By: #### C BCDF #### [address] [id number] Hemoglobin (Bld) [Mass/Vol] 11.6 g/dL Low 12.0 - 1 6.0 [facility] Comment on above: Performed By: #### C BCDF #### [address] [id number] Lymphocytes (Bld) [#/Vol] 2.67 10*3/uL Normal 1.20 - 4 .80 [facility] Comment on above: Performed By: #### C BCDF #### [address] [id number] Lymphocytes/100 WBC (Bld) 42.4 % Normal 13.0 - 44. 0 [facility] Comment on above: Performed By: #### C BCDF #### [address] [id number] MCHC (RBC) [Mass/Vol] 31.4 g/dL Low 32.0 - 36.0 [facility] Comment on above: Performed By: #### C BCDF #### [address] [id number] MCV (RBC) [Entitic vol] 93 fL Normal 80 - 100 [facility] Comment on above: Performed By: #### C BCDF #### [address] [id number] Monocytes (Bld) [#/Vol] 0.70 10*3/uL Normal 0.10 - 1.0 0 [facility] Comment on above: Performed By: #### C BCDF #### [address] [id number] Monocytes/100 WBC (Bld) 11.1 % Normal 2.0 - 10.0 [facility] Comment on above: Performed By: #### C BCDF #### [address] [id number] Neutrophils (Bld) [#/Vol] 2.65 10*3/uL Normal 1.20 - 7 .70 [facility] Comment on above: Performed By: #### C BCDF #### [address] [id number] Neutrophils/100 WBC (Bld) 42.2 % Normal 40.0 - 80. 0 [facility] Comment on above: Performed By: #### C BCDF #### [address] [id number] Platelets (Bld) [#/Vol] 253 10*3/uL Normal 150 - 450 [facility] Comment on above: Performed By: #### C BCDF #### [address] [id number] RBC 3.96 x10E12/L Low 4.00 - 5.20 [facility] Comment on above: Performed By: #### C BCDF #### [address] [id number] WBC (Bld) [#/Vol] 6.3 10*3/uL Normal 4.4 - 11.3 [facility] Comment on above: Performed By: #### C BCDF #### [facility] [address] [place], [place] [id number] Complete Blood Count + Diffblayne ellison 12-02-2021 Basophils/100 WBC (Bld) 0.6 % 0.0 - 2.0 M A-Slncetloqt-Loapnd 101 Work Phone: Erythrocyte distribution wid th (RBC) [Ratio] 13.9 % See Below LD-Ocleoupslr-Oh yria 101 Work Phone: Comment on above: Reference Range: 11. 5 - 14.5 Hematocrit (Bld) [Volume fraction] 36.9 % S ee Below GL-Bpmmstkspq-Ozcjhr 101 Work Phone: Comment on above: Reference Range: 36. 0 - 46.0 Hemoglobin (Bld) [Mass/Vol] 11.6 g/dL below low threshold See Below LI-Zschzeopmh-Ewwyio 101 Work Phone: Comment on above: Reference Range: 12. 0 - 16.0 Lymphocytes/100 WBC (Bld) 42.4 % See Below LU-Ghflrfwpoj-Cdbtew 101 Work Phone: Comment on above: Reference Range: 13. 0 - 44.0 MCHC (RBC) [Mass/Vol] 31.4 g/dL below low threshold See Below UZ-Rhlrvlhluk-Iqfvys 101 Work Phone: Comment on above: Reference Range: 32. 0 - 36.0 MCV (RBC) [Entitic vol] 93 fL 80 - 100 M R-Azduyrnkgd-Zyimbh 101 Work Phone: Monocytes/100 WBC (Bld) 11.1 % 2.0 - 10.0 M K-Mxesczpdgr-Neygnc 101 Work Phone: Neutrophils/100 WBC (Bld) 42.2 % See Below AH-Mztaisehgr-Tlstbb 101 Work Phone: Comment on above: Reference Range: 40. 0 - 80.0 Platelets (Bld) [#/Vol] 253 10*3/uL 150 - 450 FQ-Dvwbzskhkk-Ub yria 101 Work Phone: RBC (Bld) [#/Vol] 3.96 {x10E12/L} below low threshold See Below [place]-Ntlufdoeen-Xeiyly 101 Work Phone: Comment on above: Reference Range: 4.0 0 - 5.20 WBC (Bld) [#/Vol] 6.3 10*3/uL 4.4 - 11.3 MG-Car diology-[place] 101 Work Phone: Complete Blood Count + Differential 0.04 {x10E9/L} See Below WW-Sdawkujaez-Iy yria 101 Work Phone: Comment on above: Reference Range: 0.0 0 - 0.10 Complete Blood Count + Differential 0.22 {x10E9/L} See Below VM-Ptsfhzgugd-Im yria 101 Work Phone: Comment on above: Reference Range: 0.0 0 - 0.70 Complete Blood Count + Differential 0.70 {x10E9/L} See Below YP-Hfzevfxkcv-Lk yria 101 Work Phone: Comment on above: Reference Range: 0.1 0 - 1.00 Complete Blood Count + Differential 2.67 {x10E9/L} See Below LJ-Pccetupdiy-Un yria 101 Work Phone: Comment on above: Reference Range: 1.2 0 - 4.80 Complete Blood Count + Differential 2.65 {x10E9/L} See Below SX-Vrprvzklal-Yb yria 101 Work Phone: Comment on above: Reference Range: 1.2 0 - 7.70 Complete Blood Count + Differential 3.5 % 0.0 - 6.0 JG-Ktwztyjouc-Oppndt 101 Work Phone: Complete Blood Count + Differential 0.2 % 0.0 - 0.9 VZ-Izstlqrkze-Zdrnap 101 Work Phone: Comment on above: Immature Granulocyte Count (IG) includes promyelocytes, myelocytes and metamyelocytes but does not include bands. Percent differential counts (%) should be interpreted in the context of the absolute cell counts (cells/L). HEPATIC FUNCTION PANELon ALP [Catalytic activity/Vol] 63 U/L Normal 33 - 13 6 [facility] Comment on above: Performed By: #### H EPFP #### [address] [id number] ALT [Catalytic activity/Vol] 30 U/L Normal 7 - 45 [facility] Comment on above: Result Comment: Shannon ents treated with Sulfasalazine may generate falsely decreased results for ALT. Performed By: #### H EPFP #### [address] [id number] AST [Catalytic activity/Vol] 31 U/L Normal 9 - 39 [facility] Comment on above: Performed By: #### H EPFP #### [address] [id number] Bilirubin [Mass/Vol] 0.4 mg/dL Normal 0.0 - 1.2 [facility] Comment on above: Performed By: #### H EPFP #### [address] [id number] Bilirubin.indirect [Mass/Vol] 0.1 mg/dL Normal 0.0 - 0.3 [facility] Comment on above: Performed By: #### H EPFP #### [address] [id number] Protein [Mass/Vol] 7.5 g/dL Normal 6.4 - 8.2 [facility] Comment on above: Performed By: #### H EPFP #### [address] [id number] Hepatic Function Panelon Albumin BCP dye [Mass/Vol] 4.5 g/dL 3.4 - 5.0 FJ-Rliguhqiph-Jdcjne 101 Work Phone: ALP [Catalytic activity/Vol] 63 U/L 33 - 13 6 JW-Ywwqobrujv-Gioerp 101 Work Phone: ALT With P-5'-P [Catalytic activity/Vol] 30 U/L 7 - 45 BM[address]dw[address] [address] Work Phone: Comment on above: Patients treated wit h Sulfasalazine may generate falsely decreased results for ALT. AST With P-5'-P [Catalytic activity/Vol] 31 U/L 9 - 39 PE-[address]dle[address] [address] Work Phone: Bilirubin [Mass/Vol] 0.4 mg/dL 0.0 - 1.2 MG-C ardiology-[place] [employer] Work Phone: Bilirubin.direct [Mass/Vol] 0.1 mg/dL 0.0 - 0. 3 WB-Tzfvegzjvq-Phpmgx 101 Work Phone: Protein [Mass/Vol] 7.5 g/dL 6.4 - 8.2 MG-[address] [place] [address] Work Phone: LIPID PANEL (CORONARY RISK 2 )on 12-02-2021 Cholesterol [Mass/Vol] 171 mg/dL Normal 0 - 199 [facility] Comment on above: Result Comment: . AGE DESIRABLE BORDERLINE HIGH HIGH 0-19 Y 0 - 169 170 - 199 >/= 200 20-24 Y 0 - 189 190 - 224 >/= 225 >24 Y 0 - 199 200 - 239 >/= 240 All ranges are based on fasting samples. Specific therapeutic targets will vary based on patient-specific cardiac risk. . Pediatric guidelines reference:Pediatrics 2011, 128(S5). Adult guidelines reference: NCEP ATPIII Guidelines, JAMILAH 2001, 258:2486-97 . Venipuncture immediately after or during the administration of Metamizole may lead to falsely low results. Testing should be performed immediately prior to Metamizole dosing. Performed By: #### L IPID #### [address] [id number] Cholesterol in HDL [Mass/Vol] 73.0 mg/dL Normal [facility] Comment on above: Result Comment: . AGE VERY LOW LOW NORMAL HIGH 0-19 Y < 35 < 40 40-45 ---- 20-24 Y ---- < 40 >45 ---- >24 Y ---- < 40 40-60 >60 . Performed By: #### L IPID #### [address] [id number] Cholesterol in LDL [Mass/Vol] 78 mg/dL Normal 0 - 99 [facility] Comment on above: Result Comment: . NEAR BORD AGE DESIRABLE OPTIMAL HIGH HIGH VERY HIGH 0-19 Y 0 - 109 --- 110-129 >/= 130 ---- 20-24 Y 0 - 119 --- 120-159 >/= 160 ---- >24 Y 0 - 99 100-129 130-159 160-189 >/=190 . Performed By: #### L IPID #### [address] [id number] Cholesterol in VLDL [Mass/Vol] 20 mg/dL Normal 0 - 4 0 [facility] Comment on above: Performed By: #### L IPID #### [address] [id number] Cholesterol.total/Cholestero l in HDL [Mass ratio] 2.3 {ratio} Normal [facility] [place] Comment on above: Result Comment: REF VALUES DESIRABLE < 3.4 HIGH RISK > 5.0 Performed By: #### L IPID #### [address] [id number] Triglyceride [Mass/Vol] 101 mg/dL Normal 0 - 149 [facility] Comment on above: Result Comment: . AGE DESIRABLE BORDERLINE HIGH HIGH VERY HIGH 0 D-90 D 19 - 174 ---- ---- ---- 91 D- 9 Y 0 - 74 75 - 99 >/= 100 ---- 10-19 Y 0 - 89 90 - 129 >/= 130 ---- 20-24 Y 0 - 114 115 - 149 >/= 150 ---- >24 Y 0 - 149 150 - 199 200- 499 >/= 500 . Venipuncture immediately after or during the administration of Metamizole may lead to falsely low results. Testing should be performed immediately prior to Metamizole dosing. Performed By: #### L IPID #### [address] [id number] Laboratory - Chemistry and C hemistry - challengeon 12-02-2021 Albumin Ql (U) <7.0 See Below MG-Cardiol ogy-[place] 101 Work Phone: Comment on above: Reference Range: Not Established Albumin/Creatinine DL <= 20 mg/L (U) [Mass ratio] SEE COMMENT 0.0 - 30.0 MG-Cardiol ogy-[place] 101 Work Phone: Comment on above: One or more analytes used in this calculation is outside of the analytical measurement range.Calculation cannot be performed. Creatinine (U) [Mass/Vol] 20.2 mg/dL See Below VS-Taqhgadmia-Ukllza 101 Work Phone: Comment on above: Reference Range: 20. 0 - 320.0 Lipid Panelon 12-02-2021 Cholesterol [Mass/Vol] 171 mg/dL 0 - 199 MG -Cardiology-[place] 101 Work Phone: Comment on above: . AGE DESIRABLE BORD RAFI HIGH HIGH 0-19 Y 0 - 169 170 - 199 >/= 200 20-24 Y 0 - 189 190 - 224 >/= 225 >24 Y 0 - 199 200 - 239 >/= 240 All ranges are based on fasting samples. Specific therapeutic targets will vary based on patient-specific cardiac risk.. Pediatric guidelines reference:Pediatrics 2011, 128(S5). Adult guidelines reference: NCEP ATPIII Guidelines, JAMILAH 2001, 258:4646-97. Venipuncture immediately after or during the administration of Metamizole may lead to falsely low results. Testing should be performed immediately prior to Metamizole dosing. Cholesterol in HDL [Mass/Vol] 73.0 mg/dL KT-Zpcxrudbyl-Mfionl 101 Work Phone: Comment on above: . AGE VERY LOW LOW N ORMAL HIGH 0-19 Y < 35 < 40 40-45 ---- 20- 24 Y ---- < 40 >45 ---- >24 Y ---- < 40 40-60 >60. Cholesterol in LDL [Mass/Vol] 78 mg/dL 0 - 99 TV-Moccruxpyo-Dsloho 101 Work Phone: Comment on above: . NEAR BORD AGE HEBERT RABLE OPTIMAL HIGH HIGH VERY HIGH 0-19 Y 0 - 109 --- 110-129 >/= 130 ---- 20-24 Y 0 - 119 --- 120-159 >/= 160 ---- >24 Y 0 - 99 100-129 130-159 160-189 >/=190. Cholesterol.total/Cholestero l in HDL [Mass ratio] 2.3 {ratio} RR-Erbklsokzr-[place] [address] 101 Work Phone: Comment on above: REF VALUESDESIRABLE < 3.4HIGH RISK > 5.0 Triglyceride [Mass/Vol] 101 mg/dL 0 - 149 M V-Dpjjvjueww-Rkiqoj 101 Work Phone: Comment on above: . AGE DESIRABLE BORD RAFI HIGH HIGH VERY HIGH 0 D-90 D 19 - 174 ---- ---- ----91 D- 9 Y 0 - 74 75 - 99 >/= 100 ---- 10-19 Y 0 - 89 90 - 129 >/= 130 ---- 20-24 Y 0 - 114 115 - 149 >/= 150 ---- >24 Y 0 - 149 150 - 199 200- 499 >/= 500. Venipuncture immediately after or during the administration of Metamizole may lead to falsely low results. Testing should be performed immediately prior to Metamizole dosing. Lipid Panel 20 mg/dL 0 - 40 MG-Cardiology -[place] 101 Work Phone: Procedure (Gastroenterology) on 12-02-2021 Procedure (Gastroenterology) Orders NAFLD (nonalcoholic fatty liver disease) IO Liver Ultrasound ; every 1 year; Last 02Dec2021; Next 02Dec2022; Status:Active For: 'NAFLD (nonalcoholic fatty liver disease)'Ordered By: 'Kenroy Low' Provider Impressions The median FIBROSCAN score is 4.8 kPa, which for this patient is consistent with METAVIR f0-f1 fibrosis The median CAP score is 235 dB/m, which for this patient is consistent with 0-10% hepatocyte steatosis. Chief Complaint 0930 ) Patient referred by Dr. Low for open-access fibroscan for diagnosis of NAFLD. Patient identified x2 and confirmed fasting for >3 hours. Fibroscan study completed using M probe and 10 consecutive valid measurements obtained. Pt tolerated procedure well. Results: Median= 4.8 kPa IQR/med= 27% CAP= 235 dB/m Pt advised that Dr. Low will read the study and send a report to his doctor. iMgdalia Alcazar LPN Active Problems Problems Abnormal finding on imaging (793.99) (R93.89) Colon cancer screening (V76.51) (Z12.11) High serum bone-specific alkaline phosphatase (790.5) (R74.8) NAFLD (nonalcoholic fatty liver disease) (571.8) (K76.0) Need for vaccination against hepatitis B virus (V05.3) (Z23) Past Medical History Problems Abnormal finding on imaging (793.99) (R93.89) Colon cancer screening (V76.51) (Z12.11) History of Disorder of sacrum (724.6) (M53.3) High serum bone-specific alkaline phosphatase (790.5) (R74.8) History of depression (V11.8) (Z86.59) History of diabetes mellitus (V12.29) (Z86.39) History of fibromyalgia (V13.59) (Z87.39) History of gastroesophageal reflux (GERD) (V12.79) (Z87.19) History of hyperlipidemia (V12.29) (Z86.39) NAFLD (nonalcoholic fatty liver disease) (571.8) (K76.0) Need for vaccination against hepatitis B virus (V05.3) (Z23) History of Osteoarthrosis (715.90) (M19.90) 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) Surgical History Problems History of Arthroscopy Knee History of Biopsy Of Liver History of Hysterectomy History of Total Knee Replacement Left Social History Problems Denies alcohol consumption (V49.89) (Z78.9) Never a smoker No illicit drug use Allergies Medication Humira Rash; Recorded By: Whitney Wiseman; 04/12/2018 9:58:30 AM Antihistamine TABS Recorded By: Mary Araiza; 07/28/2017 9:28:35 AM Daypro Recorded By: Mary Araiza; 07/28/2017 9:28:35 AM Statins Recorded By: Mary Araiza; 07/28/2017 9:28:35 AM Current Meds Medication NameInstruction Amitriptyline HCl TABSTAKE 1/2 tab at bedtime Aspirin 81 MG Oral Tablet Delayed ReleaseTAKE 1 TABLET DAILY. Celecoxib 200 MG Oral CapsuleTAKE 1 CAPSULE DAILY NEEDED. Coreg 6.25 MG Oral TabletTAKE 1 TABLET TWICE DAILY WITH MEALS. Glucophage 850 MG TABSTAKE 1 TABLET TWICE DAILY WITH MEALS. HumaLOG KwikPen 100 UNIT/ML Subcutaneous Solution Pen-injectorINJECT SUBCUTANEOUSLY DIRECTED. Lantus SoloStar 100 UNIT/ML Subcutaneous Solution Pen-xbvrhdry96 units BID Metoprolol Tartrate 25 MG Oral TabletTAKE 1 TABLET TWICE DAILY. Multivitamins TABSTAKE 1 TABLET DAILY. Plaquenil 200 MG Oral TabletTAKE 1 TABLET TWICE DAILY WITH FOOD. Protonix 40 MG Oral Tablet Delayed ReleaseTAKE 1 TABLET DAILY. Sertraline HCl - 50 MG Oral Tablet Tums E-X 750 CHEWTAKE DIRECTED. Zanaflex 2 MG Oral Capsule1 po qhs prn Signatures Electronically signed by : Migdalia Alcazar L.P.N.; Dec 02 2021 9:54AM EST (Author) Electronically signed by : Kenroy Low MD; Dec 02 2021 10:21AM EST (Author) Normal [employer] RENAL FUNCTION PANELon 12-02 Albumin [Mass/Vol] 4.5 g/dL Normal 3.4 - 5.0 [facility] Comment on above: Performed By: #### R ENAL #### [address] [id number] Performed By: #### H EPFP #### [address] [id number] Anion gap [Moles/Vol] 13 mmol/L Normal 10 - 20 [facility] Comment on above: Performed By: #### R ENAL #### [address] [id number] Calcium [Mass/Vol] 9.3 mg/dL Normal 8.6 - 10.3 [facility] Comment on above: Performed By: #### R ENAL #### [address] [id number] Chloride [Moles/Vol] 103 mmol/L Normal 98 - 107 [facility] Comment on above: Performed By: #### R ENAL #### [address] [id number] Creatinine [Mass/Vol] 1.19 mg/dL High 0.50 - 1.05 [facility] Comment on above: Performed By: #### R ENAL #### [address] [id number] GFR/1.73 sq M.predicted among non-blacks MDRD (S/P/Bld) [Vol rate/Area] 50 mL/min/{1.73_m2} Abnormal >90 [facility] Comment on above: Result Comment: CALCULATIONS OF ESTIMATE D GFR ARE PERFORMED USING THE 2020 CKD-EPI STUDY REFIT EQUATION WITHOUT THE RACE VARIABLE FOR THE IDMS-TRACEABLE CREATININE METHODS. https://jasn.asnjournals.org/content/early//ASN.0354531379 Performed By: #### R ENAL #### [address] [id number] Glucose [Mass/Vol] 64 mg/dL Low 74 - 99 [facility] Comment on above: Performed By: #### R ENAL #### [address] [id number] HCO3 (Bld) [Moles/Vol] 29 mmol/L Normal 21 - 32 [facility] Comment on above: Performed By: #### R ENAL #### [address] [id number] Phosphate [Mass/Vol] 3.4 mg/dL Normal 2.5 - 4.9 [facility] Comment on above: Result Comment: The performance characteristics of phosphorus testing in heparinized plasma have been validated by the individual laboratory site where testing is performed. Testing on heparinized plasma is not approved by the FDA; however, such approval is not necessary. Performed By: #### R ENAL #### [address] [id number] Potassium [Moles/Vol] 4.7 mmol/L Normal 3.5 - 5.3 [facility] Comment on above: Performed By: #### R ENAL #### [address] [id number] Sodium [Moles/Vol] 140 mmol/L Normal 136 - 145 [facility] Comment on above: Performed By: #### R ENAL #### [address] [id number] Urea nitrogen [Mass/Vol] 31 mg/dL High 6 - 23 [facility] Comment on above: Performed By: #### R ENAL #### [address] [id number] Renal Function Panelon 12-02 Anion gap [Moles/Vol] 13 mmol/L 10 - 20 ZT-Kmndnqrvkm-[facility]l [facility] 101 Work Phone: Calcium [Mass/Vol] 9.3 mg/dL 8.6 - 10.3 MG[facility] di[facility]-[place] [facility] Work Phone: Chloride [Moles/Vol] 103 mmol/L 98 - 107 YF-Xgwgeaagwq-Iy yria 101 Work Phone: CO2 [Moles/Vol] 29 mmol/L 21 - 32 MG[facility]Cardio logy[facility] 101 Work Phone: Creatinine [Mass/Vol] 1.19 mg/dL above high threshold See Below HK-Saalkylfts-Ykmwfq 101 Work Phone: Comment on above: Reference Range: 0.5 0 - 1.05 Glucose [Mass/Vol] 64 mg/dL below low threshold 74 - 99 VG-Jtdmsoiccy-[place] 101 Work Phone: Phosphate [Mass/Vol] 3.4 mg/dL 2.5 - 4.9 HG-Jjnrqbjxjw-Vg yria 101 Work Phone: Comment on above: The performance juliana acteristics of phosphorus testing in heparinized plasma have been validated by the individual laboratory site where testing is performed. Testing on heparinized plasma is not approved by the FDA; however, such approval is not necessary. Potassium [Moles/Vol] 4.7 mmol/L 3.5 - 5.3 IQ-Abqdsdffif-Jg y[facility] 101 Work Phone: Sodium [Moles/Vol] 140 mmol/L 136 - 145 [facility] [facility] Work Phone: Urea nitrogen [Mass/Vol] 31 mg/dL above high threshold 6 - 23 CP-Zoztqovyab-Fzmlce 101 Work Phone: Renal Function Panel 50 {mL/min/1.73m 2} Abnormal >90 WJ-Rtftcsaxmg-Vwavhz 101 Work Phone: Comment on above: CALCULATIONS OF ESTIMATED GFR ARE PERFOR MED USING THE 2020 CKD-EPI STUDY REFIT EQUATION WITHOUT THE RACE VARIABLE FOR THE IDMS-TRACEABLE CREATININE METHODS.https://jasn.asnjournals.org/content/early/ASN.4258769911 SEDIMENTATION RATE, ERYTHROC YTEon 12-02-2021 SEDIMENTATION RATE, ERYTHROCYTE 31 mm/h High 0 - 30 [facility] Comment on above: Result Comment: Clemencia cramer note new reference ranges as of 08/11/2021. Ran on alternate instrument Reference Ranges: Males: 0-15 Females: 0-20 Children under 18: 0-10 Performed By: #### E SRWS #### [address] [id number] Sedimentation Rate, Erythroc yteon 12-02-2021 ESR (Bld) [Velocity] 31 mm/h above high threshold 0 - 3 0 XB-Ubgcztihwl-[facility] 101 Work Phone: Comment on above: Please note new refe rence ranges as of 08/11/2021.Ran on alternate instrumentReference Ranges: Males: 0-15 Females: 0-20 Children under 18: 0-10 VITAMIN D, 25-HYDROXYon 08-3 0-2021 VITAMIN D, 25-HYDROXY 55 ng/mL Normal [facility] Comment on above: Result Comment: . DEFICIENCY: < 20 NG/ML INSUFFICIENCY: 20-29 NG/ML SUFFICIENCY: 30-100 NG/ML THIS ASSAY ACCURATELY QUANTIFIES THE SUM OF VITAMIN D3, 25-HYDROXY AND VIT D2,25-HYDROXY. Performed By: #### V TDOH #### [address] [id number] Vitamin D 25-Hydroxyon 12-02 25-hydroxyvitamin D3 [Mass/Vol] 55 ng/mL [facility] 101 Work Phone: Comment on above: .DEFICIENCY: < 20 NG /MLINSUFFICIENCY: 20-29 NG/MLSUFFICIENCY: 30-100 NG/MLTHIS ASSAY ACCURATELY QUANTIFIES THE SUM OFVITAMIN D3, 25-HYDROXY AND VIT D2,25-HYDROXY. Established Visit (Gastroent erology)on 02-11-2021 Established Visit (Gastroenterology) Diagnoses/Problems Assessed NAFLD (nonalcoholic fatty liver disease) (571.8) (K76.0) Orders NAFLD (nonalcoholic fatty liver disease) Hepatic Function Panel; Status:Hold For - Exact Date; Requested for:Approx ; Perform:Lab Services - Lab To Draw (Blood Test); Due:12May2021;Ordered; For:NAFLD (nonalcoholic fatty liver disease); Ordered By:Kenroy Low; KENDALL Liver Ultrasound; Status:Hold For - Exact Date,Scheduling; Requested for:Approx ; Perform:In Office; Order Comments:FIBROSCAN; Due:12May2021;Ordered; For:NAFLD (nonalcoholic fatty liver disease); Ordered By:Kenroy Low; Radiologist to Determine Optimal Study : Y What are the patient's signs and symptoms? : NAFLD Patient Discussion/Summary have fibroscan done to monitor for the amount of fat and scarring in the liver yearly have liver testing blood work done return to the office in 1 year Avoid foods which contain complex sugars like wheat, rice, potatoes and corn Avoid eating foods that are rich in sugar in excess such as hgih sugar fruits (pineapple, lainey...) and desserts, cakes and pies Eat more good foods that are rich in good fat such as cold water fish (salmon, swordfish...) as well as avocados and peanut butter in moderation Snack on nuts that are high in protein and good oils such as walnuts, almonds. Eat a mediteranean diet which is rich in grilled lean meats, high protein beans and legumes and olive oil Exercise for 30 minutes or more at least 3 times a week focus on exercises that build muscle mass like working with weights and lifting. Try swimming or water aerobics if you have access to a pool Aim to lose 7-10% of your total body weight over 6-12 months Provider Impressions This patient has NAFLD without advanced fibrosis diet and exercise were encouraged we will repeat fibroscan annually we will see this patient in 1 year 30 minutes spent discussing condition, explaining results of tests and formulating plan of care Chief Complaint A telephone visit (audio only) between the patient (at the originating site) and the provider (at the distant site) was utilized to provide this telehealth service. Verbal consent was requested and obtained from LJ DOLL on this date, 02/11/2021 11:20 AM , for a telehealth visit. YEARLY FOLLOW UP NAFLD History of Present IllnessSHE CONTINUES TO work on diet and exercise. last 2 fibroscans were unchanged Upper Gastrointestinal: no abdominal pain, no eructation, no difficulty swallowing, no early satiety, no nausea, no vomiting. Lower Gastrointestinal: no abdominal swelling, no diarrhea, no fecal incontinence, no bowel urgency, no steatorrhea. Liver Disease no alteration in sleep wake cycle, no cognitive impairment, no confusion, no icterus, no increase in abdominal girth, no jaundice. Symptom History: Modifying Factors: Associated Symptoms: Review of Systems Constitutional: no fever, no chills, not feeling tired and no recent weight loss. ENT: no lymphadenopathy. Cardiovascular: lower extremity edema, but no shortness of breath and no chest pain. Respiratory: no cough. Gastrointestinal: as noted in HPI. Musculoskeletal: no joint swelling. Integumentary: no rashes, no skin lesions and was no jaundiced. All other systems have been reviewed and are negative for complaint. Eyes: no eye pain and eyes not red. Cardiovascular: the heart rate was not slow and the heart rate was not fast. Genitourinary: no dysuria and no incontinence. Musculoskeletal: no arthralgias and no myalgias. Active Problems Problems Abnormal finding on imaging (793.99) (R93.89) Colon cancer screening (V76.51) (Z12.11) High serum bone-specific alkaline phosphatase (790.5) (R74.8) NAFLD (nonalcoholic fatty liver disease) (571.8) (K76.0) Need for vaccination against hepatitis B virus (V05.3) (Z23) Past Medical History Problems Abnormal finding on imaging (793.99) (R93.89) Colon cancer screening (V76.51) (Z12.11) History of Disorder of sacrum (724.6) (M53.3) High serum bone-specific alkaline phosphatase (790.5) (R74.8) History of depression (V11.8) (Z86.59) History of diabetes mellitus (V12.29) (Z86.39) History of fibromyalgia (V13.59) (Z87.39) History of gastroesophageal reflux (GERD) (V12.79) (Z87.19) History of hyperlipidemia (V12.29) (Z86.39) NAFLD (nonalcoholic fatty liver disease) (571.8) (K76.0) Need for vaccination against hepatitis B virus (V05.3) (Z23) History of Osteoarthrosis (715.90) (M19.90) 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 Normal [facility] HIPS BILATERAL 2 VWS WITH PE LVISon 12-12-2020 HIPS BILATERAL 2 VWS WITH PELVIS [facility] Department of Radiology [address] [place] [id number] Patient Name: LJ DOLL : 1955 Sex: F Age: Race: White Pt. Location: 84 Patient Status: D Ordered Date: 12/12/2020 8:30:00 AM Completed Date: 12/12/2020 08:38 AM Requesting Provider: CHAGO WARREN Attending Provider: CHAGO WARREN Report Copy To: BREE AMBROSE Signs & Symptoms: Z96.642 Presence of left artificial hip joint History: Abiola failed; scanned in RIS Comments: evaluate Exam: HIPS BILATERAL 2 VWS WITH PELVIS HIPS BILATERAL 2 VWS WITH PELVIS 12/12/2020 8:38 AM CLINICAL INDICATIONS: Z96.642 Presence of left artificial hip joint TECHNOLOGIST COMMENTS: left DILIA 2 yrs ago having pain QUESTION FOR THE RADIOLOGIST: evaluate PROTOCOL: AP(PA) and Lateral views were obtained. COMPARISON: 08/12/2018 FINDINGS: Bones: No acute fracture. No bony erosions. Joints: Degenerative changes of the lumbar spine. Left total hip arthroplasty in unchanged alignment, and without hardware complication. Acetabular component slightly more vertically oriented however this is unchanged. Heterotopic ossification lateral to the left hip joint, stable from prior exam. Degenerative changes of the right hip joint with superior acetabular sclerosis and subchondral cyst formation, stable from prior exam. IMPRESSION: 1. No acute osseous abnormality. 2. Unchanged appearance left total hip arthroplasty. 3. Stable mild degenerative changes of the right hip joint. Approved by:Zoltan Harvey12/13/2020 8:32 AM. I, James Francisco,have reviewed the image(s) and agree with the findings in this report. Electronically signed: James Francisco. Transcribed by: [email or web address], User Resident: ZOLTAN CASTRO Electronically Signed by: JAMES FRANCISCO @ 12/13/2020 10:51 AM I personally read this/these film(s) with this resident Normal [facility] Comment on above: Order Comment: evalu ate HAND LEFT 3 VWSon 04-26-2020 HAND LEFT 3 VWS [facility] Department of Radiology [address] [place] [id number] Patient Name: LJ DOLL : 1955 Sex: F Age: Race: White Pt. Location: Patient Status: D Ordered Date: 04/26/2020 11:45:00 AM Completed Date: 04/26/2020 11:45 AM Requesting Provider: FRANCES BORRERO Attending Provider: Report Copy To: Signs & Symptoms: M25.532 Pain in left wrist I10 History: Comments: Evaluate Exam: HAND LEFT 3 VWS WRIST LEFT 3 VWS HAND LEFT 3 VWS HISTORY: Fall, pain. COMPARISON: None. IMPRESSION: 1. Within limits of osteopenia no appreciable fracture. No malalignment. If there is concern for occult scaphoid fracture, recommend repeat radiographs in 7-10 days or evaluation with cross-sectional imaging. 2. Remote injury to the ulnar styloid. Mild arthritis of the radiocarpal, triscaphe, first CMC joints. Mild scattered interphalangeal and MCP arthritis. Electronically signed: James Francisco. Transcribed by: [email or web address], User Resident: Electronically Signed by: JAMES FRANCISCO @ 04/27/2020 01:21 PM Normal [facility] Comment on above: Order Comment: Evalu ate WRIST LEFT 3 VWSon 1 WRIST LEFT 3 VWS [facility] Department of Radiology [address] [place] [id number] Patient Name: LJ DOLL : 1955 Sex: F Age: Race: White Pt. Location: Patient Status: D Ordered Date: 04/26/2020 11:45:00 AM Completed Date: 04/26/2020 11:45 AM Requesting Provider: FRANCES BORRERO Attending Provider: FRANCES BORRERO Report Copy To: Signs & Symptoms: M25.532 Pain in left wrist I10 History: Comments: Evaluate Exam: WRIST LEFT 3 VWS WRIST LEFT 3 VWS HAND LEFT 3 VWS HISTORY: Fall, pain. COMPARISON: None. IMPRESSION: 1. Within limits of osteopenia no appreciable fracture. No malalignment. If there is concern for occult scaphoid fracture, recommend repeat radiographs in 7-10 days or evaluation with cross-sectional imaging. 2. Remote injury to the ulnar styloid. Mild arthritis of the radiocarpal, triscaphe, first CMC joints. Mild scattered interphalangeal and MCP arthritis. Electronically signed: James Francisco. Transcribed by: [email or web address], User Resident: Electronically Signed by: JAMES FRANCISCO @ 04/27/2020 01:21 PM Normal [facility] Comment on above: Order Comment: Evalu ate ABO/RH GROUP TESTon 10-23-19 19 ABO TYPE O Normal [facility] Comment on above: Performed By: #### V ERAB ####[address] [address] RH TYPE Positive Normal [facility] Comment on above: Performed By: #### V ERAB ####[address] [address] BASIC METABOLIC PANELon 10-04 Anion gap [Moles/Vol] 9 mmol/L Low 10 - 20 [facility] Comment on above: Performed By: #### B MP ####[address] [address] Calcium [Mass/Vol] 8.7 mg/dL Normal 8.6 - 10.3 [facility] [place] on above: Performed By: #### B MP ####[address] [address] Chloride [Moles/Vol] 110 mmol/L High 98 - 107 [facility] Comment on above: Performed By: #### B MP ####[address] [address] Creatinine [Mass/Vol] 0.94 mg/dL Normal 0.50 - 1.05 [facility] Comment on above: Performed By: #### B MP ####[address] [address] GFR- AM. 73 mL/min/1.73m2 Normal >60 [facility] Comment on above: Result Comment: CALC ULATIONS OF ESTIMATED GFR ARE PERFORMED USING THE MDRD STUDY EQUATION FOR THE IDMS-TRACEABLE CREATININE METHODS. CLIN CHEM 2007;53:766-72 Performed By: #### B MP ####[address] [address] GFR-NON AM. 60 mL/min/1.73m2 Abnormal >60 [facility] Comment on above: Performed By: #### B MP ####[address] [address] Glucose [Mass/Vol] 155 mg/dL High 74 - 99 [facility] Comment on above: Performed By: #### B MP ####[address] [place] [address] HCO3 (Bld) [Moles/Vol] 24 mmol/L Normal 21 - 32 [facility] Comment on above: Performed By: #### B MP ####[address] [place] [address] Potassium [Moles/Vol] 4.4 mmol/L Normal 3.5 - 5.3 [facility] Comment on above: Performed By: #### B MP ####[address] [place] [address] Sodium [Moles/Vol] 139 mmol/L Normal 136 - 145 [facility] Comment on above: Performed By: #### B MP ####[address] [place] [address] Urea nitrogen [Mass/Vol] 27 mg/dL High 6 - 23 [facility] Comment on above: Performed By: #### B MP ####[address] [place] [address] CBCon 10-22-2018 Erythrocyte distribution wid th (RBC) [Ratio] 14.6 % High 11.5 - 14.5 [facility] Comment on above: Performed By: #### C BC ####[address] [place] [address] Hematocrit (Bld) [Volume fraction] 24.8 % Low 3 6.0 - 46.0 [facility] Comment on above: Performed By: #### C BC ####[address] [place] [address] Hemoglobin (Bld) [Mass/Vol] 7.4 g/dL Low 12.0 - 1 6.0 [facility] Comment on above: Performed By: #### C BC ####[address] [place] [address] MCHC (RBC) [Mass/Vol] 29.8 g/dL Low 32.0 - 36.0 [facility] Comment on above: Performed By: #### C BC ####[address] [address] MCV (RBC) [Entitic vol] 92 fL Normal 80 - 100 [facility] [place] on above: Performed By: #### C BC ####[address] [address] Nucleated RBC/100 WBC (Bld) [Ratio] 0.0 /100 WBC Normal 0.0 - 0.0 [facility] Comment on above: Performed By: #### C BC ####[address] [address] Platelets (Bld) [#/Vol] 212 10*3/uL Normal 150 - 450 [facility] Comment on above: Performed By: #### C BC ####[address] [address] RBC (Bld) [#/Vol] 2.71 x10E12/L Low 4.00 - 5.20 [facility] Comment on above: Performed By: #### C BC ####[address] [address] WBC (Bld) [#/Vol] 7.2 10*3/uL Normal 4.4 - 11.3 [facility] on above: Performed By: #### C BC ####[address] [address] Discharge [id number] Discharge Profile2 Discharge Orders: Anticipated Discharge Date: Anticipated Discharge [id number] Problem List: Admitting Dx: Gastrointestinal hemorrhage with hematemesis: Catalog Name: Hematemesis Hospital Providers: Provider RoleProvider Name Jeffrey Paige Shaffer R.S. DNAR: DNAR Statusnone Activity: activity as tolerated. Diet: Dietresume normal diet Hospital Course (Home Care/Gold Form): Hospital Course: Hospital Course: include significant abnormal lab values HPI: 63-year-old female with a history of CAD with stent for failing stress test (on ASA and Plavix), type 2 diabetes, depression, hypertension, anemia (baseline hemoglobin near 10), GERD, Rheumatoid arthritis, status post upper and lower colonoscopy 12 days ago with reported findings of just some polyps but otherwise normal per the patient. She presented to [facility] on September 20 for evaluation of syncopal episodes at home. She reports large hemoptysis episode of roughly 70 mL of blood that was dark in nature. She denies hematochezia or melena. She denies nausea and vomiting. She denies alcohol use and is unaware of any liver disease. She denies previous history of GI bleeding. She denies chest pain. She denies shortness of breath. She denies palpitations. At OSH the patients hemoglobin was 8.5 (baseline around 10). She did have an episode of orthostatic hypotension that improved with IV fluids. ALT/AST within normal limits. INR and PTT within normal limits area. Her vital signs were stable. She was given IV fluids and Protonix bolus. EKG was sinus rhythm with nonspecific T-wave inversion in aVL. She is transferred here and admitted to the ICU for concerns of GI bleeding. Course: Patient was transferred to [facility] [place] and monitored. She didn't show any evidence of bleeding. No melena or hematochezia. Her vitals were stable so she was transferred out of ICU to [facility]. GI saw her there and she underwent EGD on 10/22/18. No bleeding was found. Hiatal hernia was noted. Patient's aspirin, plavix and celebrex were held and stopped at discharged. Since her coronary stent was placed in 2016, she likely doesn't need to be on plavix anymore. Restarting ASA and/or plavix can be discussed with her repertoire manager at her appointment scheduled in November. Her hemoglobin did drop to 7.4 after she was given some fluids, so I transfused her 1 unit prior to discharge. A repeat hemoglobin is worthwhile at her primary care follow up, ideally in about a week. Her orthostatics were checked and were negative. She remained normotensive here. I continued her lisinopril 10mg, stopped her lasix, and reduced her coreg to 3.125mg BID. These medications can be adjusted at PCP follow up as needed as well. Provider FINAL REVIEW of Orders: Final Review: Final Review of Medication Reconciliation and Orders Completedby Physician Reviewing Aaron Crowell MD at 22-Oct-2018 12:24:40 Appointments: Follow-Up Appointment 01: Physician/Dept/ServiceDr. Ambrose/primary care Call to Schedule in1 week Follow-Up Appointment 02: Physician/Dept/Sobeida repertoire manager Call to Schedule in4 weeks Electronic Signatures: Jeffrey Crowell) (Signed 22-Oct-2018 12:24) Authored: Discharge Orders, Hospital Course (Home Care/Gold Form), Provider FINAL REVIEW of Orders, Appointments, Gold Form - Deicer Inspector Pneumatic Summary Last Updated: 22-Oct-2018 12:24 by Jeffrey Crowell) [facility] GLUCOSE-POCTon 10-22-2018 Glucose [Mass/Vol] 146 mg/dL High 74 - 99 [facility] [place] above: Performed By: #### G BENNIE ####[address] [address] Glucose [Mass/Vol] 160 mg/dL High 74 - 99 [facility] [place] on above: Performed By: #### G BENNIE ####[address] [address] REQUEST-LEUKOREDUCED RED JE LSon 10-22-2018 REQUEST-LEUKOREDUCED RED CELLS ORDER RECD Normal [facility] Comment on above: Performed By: #### O JUNIOR DESIGNER ####[address] [address] BASIC METABOLIC PANELon 10-03 Anion gap [Moles/Vol] 14 mmol/L Normal - 20 [facility] Comment on above: Performed By: #### B MP ####[address] [address] Calcium [Mass/Vol] 8.4 mg/dL Low 8.6 - 10.3 [facility] [place] above: Performed By: #### B MP ####[address] [address] Chloride [Moles/Vol] 108 mmol/L High 98 - 107 [facility] Comment on above: Performed By: #### B MP ####[address] [address] Creatinine [Mass/Vol] 0.93 mg/dL Normal 0.50 - 1.05 [facility] Comment on above: Performed By: #### B MP ####[address] [address] GFR- AM. 73 mL/min/1.73m2 Normal >60 [facility] Comment on above: Result Comment: CALC ULATIONS OF ESTIMATED GFR ARE PERFORMED USING THE MDRD STUDY EQUATION FOR THE IDMS-TRACEABLE CREATININE METHODS. CLIN CHEM 2007;53:766-72 Performed By: #### B MP ####[address] [address] GFR-NON AM. 60 mL/min/1.73m2 Abnormal >60 [facility] Comment on above: Performed By: #### B MP ####[address] [address] Glucose [Mass/Vol] 118 mg/dL High 74 - 99 [facility] [place] above: Performed By: #### B MP ####[address] [address] HCO3 (Bld) [Moles/Vol] 22 mmol/L Normal 21 - 32 [facility] Comment on above: Performed By: #### B MP ####[address] [address] Potassium [Moles/Vol] 4.2 mmol/L Normal 3.5 - 5.3 [facility] Comment on above: Performed By: #### B MP ####[address] [address] Sodium [Moles/Vol] 140 mmol/L Normal 136 - 145 [facility] [place] on above: Performed By: #### B MP ####[address] [address] Urea nitrogen [Mass/Vol] 36 mg/dL High 6 - 23 [facility] Comment on above: Performed By: #### B MP ####[address] [address] CBCon 10-21-2018 Erythrocyte distribution wid th (RBC) [Ratio] 14.6 % High 11.5 - 14.5 [facility] Comment on above: Performed By: #### C BC ####[address] [address] Hematocrit (Bld) [Volume fraction] 26.3 % Low 3 6.0 - 46.0 [facility] Comment on above: Performed By: #### C BC ####[address] [address] Hemoglobin (Bld) [Mass/Vol] 8.0 g/dL Low 12.0 - 1 6.0 [facility] Comment on above: Performed By: #### C BC ####[address] [address] MCHC (RBC) [Mass/Vol] 30.4 g/dL Low 32.0 - 36.0 [facility] Comment on above: Performed By: #### C BC ####[address] [address] MCV (RBC) [Entitic vol] 92 fL Normal 80 - 100 [facility] [place] above: Performed By: #### C BC ####[address] [address] Nucleated RBC/100 WBC (Bld) [Ratio] 0.0 /100 WBC Normal 0.0 - 0.0 [facility] Comment on above: Performed By: #### C BC ####[address] [address] Platelets (Bld) [#/Vol] 244 10*3/uL Normal 150 - 450 [facility] Comment on above: Performed By: #### C BC ####[address] [address] RBC (Bld) [#/Vol] 2.86 x10E12/L Low 4.00 - 5.20 [facility] Comment on above: Performed By: #### C BC ####[address] [address] WBC (Bld) [#/Vol] 8.6 10*3/uL Normal 4.4 - 11.3 [facility] [place] above: Performed By: #### C ####[facility] [place] [address] Consult-Gastroenterologyon 0 10-21-2018 Consult-Gastroenterology Service: Service: Gastroenterology Consult: Consult requested by (Attending Name): Jeffrey Crowell Reason: Hemoptysis History of Present Illness: HPI: 63 year old Female with a history notable for AD with stent for failing stress test (on ASA and Plavix), type 2 diabetes, depression, hypertension, anemia (baseline hemoglobin near 10), GERD, and Rheumatoid arthritis that presented with syncope and hemoptysis. We have been consulted for hemoptysis. EGD/Colonoscopy 10/[address] Kenroy Low which she had benign polyps resected. He has been following her for fatty liver disease and working up her elevated ALK PHOS. She reports prior to admission she had an episode of coughing of blood . She specifically denied hematemesis. Hgb is 8 (baseline normally ~10). She denies melena or hematochezia. Review Family/Social History and ROS: Review Family/Social History and ROS: Family History: reviewed and not pertinent to presenting problem Alcohol Use: denies Drug Use: denies No ROS has been documented on this patient. Family History: Family History: reviewed and not pertinent to presenting problem Allergies: Humira: Rash, Itching Intolerances: statins: Muscle Weakness (Severe) antihistamines: Fatigue, Lethargy, Confusion, Mood Alteration Objective: Objective Information: T PRBPSpO2 [id number]/5398% Date/Time10/21 8: 11: 11: 11: 8:00 Range(36.3C - 36.9C ) (68 - 98 ) (12 - 35 ) (112 - 156 )/ (36 - 103 ) (95% - 99% ) Highest temp of 36.9 C was recorded at 10/20 16:00 Physical Exam: Constitutional: Well developed, awake/alert/oriented x3, no distress, alert and cooperative Eyes: PERRL, EOMI, clear sclera ENMT: mucous membranes moist, no apparent injury, no lesions seen Head/Neck: Neck supple, no apparent injury, thyroid without mass or tenderness, No JVD, trachea midline, no bruits Respiratory/Thorax: Patent airways, CTAB, normal breath sounds with good chest expansion, thorax symmetric Cardiovascular: Regular, rate and rhythm, no murmurs, 2+ equal pulses of the extremities, normal S 1and S 2 Gastrointestinal: Nondistended, soft, non-tender, no rebound tenderness or guarding, no masses palpable, no organomegaly, +BS, no bruits Musculoskeletal: ROM intact, no joint swelling, normal strength Extremities: normal extremities, no cyanosis edema, contusions or wounds, no clubbing Skin: Warm and dry, no lesions, no rashes Medications: Medications: Continuous Medications No continuous medications are active Scheduled Medications 1. Amitriptyline: 25 mg Oral At Bedtime 2. Cholecalciferol (Vitamin D3): 1000 International Unit(s) Oral Daily 3. Hydroxychloroquine: 200 mg Oral Daily 4. Insulin Lispro Mild Corrective Scale: unit(s) SubCutaneous 3 Times a Day Before Meals 5. Multivitamin with Zinc: 1 tablet(s) Oral Daily 6. Pantoprazole Injectable: 80 mg IntraVenous Push Every 12 Hours 7. Sertraline: 75 mg Oral Daily PRN Medications 1. Calcium Chloride IVPB: 0.5 gram(s) IntraVenous Piggyback Every 8 Hours 2. Calcium Chloride IVPB: 1 gram(s) IntraVenous Piggyback Every 8 Hours 3. Dextrose 50% in Water Injectable: 25 gram(s) IntraVenous Push Every 15 Minutes 4. Glucagon Injectable: 1 mg IntraMuscular Every 15 Minutes 5. Magnesium Sulfate 2 gram/Sterile Water 50 mL Premix Soln: 2 gram(s) IntraVenous Piggyback Every 6 Hours 6. Magnesium Sulfate 4 gram/Sterile Water 100 mL Premix Soln: 4 gram(s) IntraVenous Piggyback Every 6 Hours 7. Potassium Chloride Extended Release: 20 mEq Oral Every 6 Hours 8. Potassium Chloride Extended Release: 40 mEq Oral Every 6 Hours 9. Potassium Chloride Powder Packet: 40 mEq Oral Every 6 Hours 10. Potassium Chloride Powder Packet: 20 mEq Oral Every 6 Hours Currently Suspended Medications 1. Celecoxib (CELEBREX): 100 mg Oral Daily Recent Lab Results: Results: I have reviewed these laboratory results: Complete Blood Count 21-Oct-2018 04:11:00 ResultValue White Blood Cell Count 8.6 Nucleated Erythrocyte Count 0.0 Red Blood Cell Count 2.86 L HGB 8.0 L HCT 26.3 L MCV 92 MCHC 30.4 L PLT 244 RDW-CV 14.6 H Basic Metabolic Panel 21-Oct-2018 04:11:00 ResultValue Glucose, Serum 118 H NA 140 K 4.2 CL 108 H Bicarbonate, Serum 22 Anion Gap, Serum 14 BUN 36 H CREAT 0.93 GFR-Non 60 A GFR- 73 Calcium, Serum 8.4 L Assessment: 63 year old Female with a history notable for AD with stent for failing stress test (on ASA and Plavix), type 2 diabetes, depression, hypertension, anemia (baseline hemoglobin near 10), GERD, and Rheumatoid arthritis that presented with syncope and hemoptysis. We have been consulted for hemoptysis. 1. Acute Post Hemorrhagic Anemia: Acute drop in her Hgb from her baseline. Presented with reported hemoptysis and specifically denies hematemesis. EGD/Colon 10/04 with polyps resected but otherwise unremarkable. However, she has a significantly elevated BUN/Cr ratio c/w possible GI bleeding. Due to this, I recommend proceeding an EGD to evaluate for possible GI source. She already ate lunch today so will schedule for first thing tomorrow AM based on schedule availability. --Decrease Protonix to 40 mg BID (no need for 80 mg BID) --NPO after midnight --EGD tomorrow AM Dr. Chacorta Robledo MD [facility] Color Consultant Electronic Signatures: Chacorta Robledo () (Signed 21-Oct-2018 15:15) Authored: Service, History of Present Illness, Review Family/Social History and ROS, Allergies, Objective, Assessment/Recommendations, Signature/Cosignature/Attestation Last Updated: 21-Oct-2018 15:15 by Chacorta Robledo) Normal [facility] Daily Progress Note - Critic ruth ann Protillo 10-21-2018 Daily Progress Note - Critical Care Subjective Data: ID Statement: LJ DOLL is a 63 year old Female who is Hospital Day # 2 and ICU Day #2. Patient seen and examined. Hemodynamically stable. On room air. She states she has occasional abdominal discomfort. She denies chest pain. She denies shortness of breath. Objective Data: Objective Information T PRBPSpO2 [id number]/6197% Date/Time10/21 3: 5: 5: 5: 5:00 Range(36.3C - 36.9C ) (70 - 98 ) (13 - 40 ) (112 - 175 )/ (36 - 103 ) (95% - 99% ) Highest temp of 36.9 C was recorded at 10/20 16:00 Pain reported at 10/21 4:00: 0 = None Weights 10/21 4:00: Weight in kg (Weight (kg)) 98.7 10/21 4:00: Weight in lbs ((lbs)) 217.5 10/20 11:01: BMI (kg/m2) (BMI (kg/m2)) 38.671 Physical Exam: Physical Exam: Neurological: alert and oriented x3, intact senses, motor, normal strength Cardiovascular: Regular, rate and rhythm, no murmurs, 2+ equal pulses of the extremities, normal S 1and S 2 Respiratory/Thorax: Patent airways, CTAB, normal breath sounds with good chest expansion, thorax symmetric Genitourinary: No Discharge, vesicles or other abnormalities Gastrointestinal: Nondistended, soft, non-tender, no rebound tenderness or guarding, no masses palpable, no organomegaly, +BS, Skin: Warm and dry, no lesions, no rashes Musculoskeletal: ROM intact, no joint swelling, normal strength Constitutional: Well developed, awake/alert/oriented x3, no distress, alert and cooperative Eyes: PERRL clear sclera ENMT: mucous membranes moist, no apparent injury, no lesions seen Head/Neck: Neck supple, no apparent injury, No JVD, trachea midline Extremities: normal extremities, no cyanosis edema, contusions or wounds, no clubbing Psychological: Appropriate mood and behavior Allergies: Allergies: Humira: Rash, Itching Intolerances: statins: Muscle Weakness (Severe) antihistamines: Fatigue, Lethargy, Confusion, Mood Alteration Medications: Medications: CENTRAL NERVOUS SYSTEM AGENTS: 1. Celecoxib (CELEBREX): 100 mg Oral Daily GASTROINTESTINAL AGENTS: 1. Pantoprazole Injectable: 80 mg IntraVenous Push Every 12 Hours METABOLIC AGENTS: 1. Insulin Lispro Mild Corrective Scale: unit(s) SubCutaneous Every 4 Hours 2. Dextrose 50% in Water Injectable: 25 gram(s) IntraVenous Push Every 15 Minutes PRN 3. Glucagon Injectable: 1 mg IntraMuscular Every 15 Minutes PRN MISCELLANEOUS AGENTS: 1. Hydroxychloroquine: 200 mg Oral Daily NUTRITIONAL PRODUCTS: 1. Lactated Ringers Infusion: 1000 mL IntraVenous 2. Calcium Chloride IVPB: 0.5 gram(s) IntraVenous Piggyback Every 8 Hours PRN 3. Calcium Chloride IVPB: 1 gram(s) IntraVenous Piggyback Every 8 Hours PRN 4. Magnesium Sulfate 2 gram/Sterile Water 50 mL Premix Soln: 2 gram(s) IntraVenous Piggyback Every 6 Hours PRN 5. Magnesium Sulfate 4 gram/Sterile Water 100 mL Premix Soln: 4 gram(s) IntraVenous Piggyback Every 6 Hours PRN 6. Potassium Chloride Extended Release: 20 mEq Oral Every 6 Hours PRN 7. Potassium Chloride Extended Release: 40 mEq Oral Every 6 Hours PRN 8. Potassium Chloride Powder Packet: 40 mEq Oral Every 6 Hours PRN 9. Potassium Chloride Powder Packet: 20 mEq Oral Every 6 Hours PRN 10. Multivitamin with Zinc: 1 tablet(s) Oral Daily 11. Cholecalciferol (Vitamin D3): 1000 International Unit(s) Oral Daily PSYCHOTHERAPEUTIC AGENTS: 1. Amitriptyline: 25 mg Oral At Bedtime 2. Sertraline: 75 mg Oral Daily Recent Lab Results: Results: I have reviewed these laboratory results: Glucose_POCT Trending View [id number] 05:27:00 20-Oct-2018 23:24:00 20-Oct-2018 16:44:00 Glucose-MTNG644 H 114 H 120 H Complete Blood Count T[facility] [id number] 04:11:00 20-Oct-2018 15:31:00 White Blood Cell Count8.6 7.7 Nucleated Erythrocyte Count0.0 0.0 Red Blood Cell Count2.86 L 2.76 L HGB8.0 L 7.7 L HCT26.3 L 25.7 L MCV92 93 MCHC30.4 L 30.0 L NHE899 241 RDW-CV14.6 H 14.6 H Basic Metabolic Panel 21-Oct-2018 04:11:00 ResultValue Glucose, Serum 118 H NA 140 K 4.2 CL 108 H Bicarbonate, Serum 22 Anion Gap, Serum 14 BUN 36 H CREAT 0.93 GFR-Non 60 A GFR- 73 Calcium, Serum 8.4 L Magnesium, Serum 21-Oct-2018 04:11:00 ResultValue Magnesium, Serum 1.80 Phosphorus, Serum 21-Oct-2018 04:11:00 ResultValue Phosphorus, Serum 2.1 L Hemoglobin + Hematocrit 20-Oct-2018 21:47:00 ResultValue HCT 25.1 L HGB 7.9 L Comprehensive Metabolic Panel 20-Oct-2018 15:31:00 ResultValue Glucose, Serum 120 H NA 139 K 4.7 CL 111 H Bicarbonate, Serum 22 Anion Gap, Serum 11 BUN 45 H CREAT 0.92 GFR-Non >60 GFR- >60 Calcium, Serum 8.4 L ALB 3.6 ALKP 91 T Pro 6.0 L T Bili 0.2 Alanine Aminotransferase, Serum 34 Aspartate Transaminase, Serum 22 PT + INR, Plasma 20-Oct-2018 15:31:00 ResultValue Prothrombin Time, Plasma 11.5 International Normalized Ratio, Plasma 1.0 Troponin I, Serum 20-Oct-2018 15:31:00 ResultValue Troponin I, Serum <0.02 Assessment and Plan: Daily Risk Screen: Does patient have a central lineno Does patient have an indwelling urinary catheterno Is the patient intubatedno Assessment/Plan: Assessment/Plan: Assessment Syncope with standing Hemoptysis none noted on [facility] admit Anemia-baseline hemoglobin around 10 CAD with stent in 2017 for failing stress test (on ASA and Plavix) Hx of: Type 2 diabetes Depression Hypertension GERD Rheumatoid arthritis Plan: Neuro: Alert and oriented. No issues. Continue antidepressants. Monitor neuro status CV: No tachycardia. Stable hemodynamics. She states she does have some intermittent lightheadedness when she stands. Hold aspirin and Plavix for now. Hold antihypertensives. Troponin yesterday negative. Monitor hemodynamics, Goal MAP > 65. Monitor and optimize electrolytes, keep potassium >4.0, magnesium > 2.0. Pulmonary: No issues on room air. No pulmonary history. Continue to monitor respiratory status. GI: Dr. Robledo has been consulted and will await his recommendations. Pantoprazole 80 mg twice a day until further recommendations by GI. No further hemoptysis since admit. The patient has been nothing by mouth for nearly 24 hours. She needs to eat so I will order diet. 10/05/18 at OSH had upper and lower EGD which found: A. FUNDIC POLYP, POLYPECTOMY: --GASTRIC HYPERPLASTIC POLYP--HELICOBACTER PYLORI NOT IDENTIFIED B. IRREGULAR Z-LINE, BIOPSY: --GASTRIC TYPE MUCOSA WITH REACTIVE CHANGES. Note: No goblet cells identified. GI prophylaxis. See above /FEN: Creatinine 1.25 at outside hospital, 0.93 this morning. Monitor renal function. Will start maintenance IV and she can take fluids orally until GI places her nothing by mouth. Heme: She has baseline anemia. Hemoglobin baseline is near 10; 8.5 at outside hospital. Has remained stable in the ICU. 8.07.97.7. Type and cross completed. INR (1.0) and platelets (244) were WNL. VTE prophylaxis: SCDs, no pharmacologic agent given risk for bleeding Endo: History of diabetes. Holding home Lantus and metformin while nothing by mouth. Accu-Cheks with SS coverage. Goal sugar less than 180. ID: Afebrile. No leukocytosis No infection suspected. Will monitor. Disposition: She appears to have no active GI bleeding. She can leave the intensive care unit. I spoke with Dr. Biggs who will accept the patient to [facility]. Code Status: Code StatusFull Code Signature/Cosignature/Attestation: Note Completion: Critical Care PatientI have reviewed and evaluated the most recent data and results, personally examined the patient, and formulated the plan of care as presented above. This patient was critically ill and required continued critical care treatment. Teaching and any separately billable procedures are not included in the time calculation. Billing Provider Critical Care Time33 minute(s) Primary Critical Care Issue/Treatment (See Assessment and Plan for greater detail)-- This patient is believed to have, or have the potential for, a life-threatening gastrointestinal hemorrhage. We are treating with appropriate blood products, fluids and/or pressors, as indicated, as well as intensive monitoring. Please see assessment and plan above for greater detail. Electronic Signatures: Homero Enriquez (FRAMING CARPENTER-KITCHEN CLERK) (Signed 21-Oct-2018 12:03) Authored: Subjective Data, Objective Data, Assessment and Plan, Signature/Cosignature/Attestation Last Updated: 21-Oct-2018 12:03 by Homero Enriquez (FRAMING CARPENTER-KITCHEN CLERK) Normal [facility] GLUCOSE-POCTon 10-21-2018 Glucose [Mass/Vol] 180 mg/dL High 74 - 99 [facility] [place] on above: Performed By: #### G BENNIE ####[address] [address] Glucose [Mass/Vol] 166 mg/dL High [address] [place] [address] Comment on above: Performed By: #### G BENNIE ####[address] [address] Glucose [Mass/Vol] 174 mg/dL High - [address] [place] [address] Comment on above: Performed By: #### G BENNIE ####[address] [address] Glucose [Mass/Vol] 129 mg/dL High [address] [place] [address] Comment on above: Performed By: #### G BENNIE ####[address] [address] Glucose [Mass/Vol] 114 mg/dL High - [address] [place] [address] Comment on above: Performed By: #### G BENNIE ####[address] [address] HEMOGLOBIN A1Con 10-21-2018 HbA1c (Bld) [Mass fraction] 6.8 % Normal [facility] Comment on above: Result Comment: Diag nosis of Diabetes-Adults Non-Diabetic: < or = 5.6% Increased risk for developing diabetes: 5.7-6.4% Diagnostic of diabetes: > or = 6.5% . Monitoring of Diabetes Age (y) Therapeutic Goal (%) Adults: >18 <7.0 Pediatrics: 13-18 <7.5 7-12 <8.0 0- 6 7.5-8.5 [place] [employer]. Diabetes Care 33(S1), Apr 2009. Performed By: #### H BA1E ####[address] [address] HbA1c (Bld) [Mass fraction] 148 MG/DL Normal [facility] Comment on above: Performed By: #### H BA1E ####[address] [address] HGB + HCTon 10-21-2018 Hematocrit (Bld) [Volume fraction] 25.1 % Low 3 6.0 - 46.0 [facility] Comment on above: Performed By: #### H H ####[address] [address] Hemoglobin (Bld) [Mass/Vol] 7.9 g/dL Low 12.0 - 1 6.0 [facility] Comment on above: Performed By: #### H H ####[address] [address] MAGNESIUMon 10-21-2018 Magnesium [Mass/Vol] 1.80 mg/dL Normal 1.60 - 2.40 [facility] Comment on above: Performed By: #### M G ####[address] [address] PHOSPHORUSon 10-21-2018 Phosphate [Mass/Vol] 2.1 mg/dL Low 2.5 - 4.9 [facility] Comment on above: Result Comment: The performance characteristics of phosphorus testing in heparinized plasma have been validated by the individual laboratory site where testing is performed. Testing on heparinized plasma is not approved by the FDA; however, such approval is not necessary. Performed By: #### P HOS ####[address] [address] Preop Checkliston 10-21-2018 Preop Checklist Preop Checklist: Preop Checklist: Arrival [id number] Arrival Time07:30 Procedure Typeesophago - gastro-duodenoscopy NPO [id number] NPO Commentnpo at mid night ID Band Onyes Allergy Bandyes Consent Signedpending H&P Completeyes Anesthesia Assessment Completedpending EKG Performednot ordered Chest X-Ray Performednot ordered HCG Urine TestN/A Chlorhexadine Bath Givennot applicable Nasal Antiseptic Appliednot applicable Hair Washednot applicable Soap and water bath with hair shampoo the night before surgerynot applicable SCD's Appliedno JOE Hose Appliedno Denturesnot applicable Prostheticsnot applicable Hearing Aidsnot applicable Valuables Securednot applicable Glasses / Contactsnot applicable Bowel Prepno Cardiovascular Assessment: Apicalregular Radial Pulsespalpable Pedal Pulsespalpable Extremitieswarm Central Venous Access DeviceIV IS PATENT Respiratory Assessment: Respirationsregular Air Exchangeequal, good Breath Soundsclear Neurological Assessment: Level of Consciousnessalert, oriented Mobilitymoves all extremities Able to Express Selfyes Age Appropriateyes Emotional Statuscalm Preop Education: Surgical Site Infection Preventionno Pain Scales and Managementyes Language / Communication: Language / CommunicationEnglish Electronic Signatures: Glory Wilde (TIFFANIE) (Signed 21-Oct-2018 22:04) Authored: Preop Checklist Last Updated: 21-Oct-2018 22:04 by Glory Wilde (TIFFANIE) [facility] enter Admission Risk Screen - Adul ton 10-20-2018 Admission Risk Screen - Adult Allergies: Allergies: Humira: Rash antihistamines: Psychosis Intolerances: statins: Muscle Weakness Patient Verification: New W ID Band Applied in my Departmentyes Patient Identity Verified Bypatient ID Band FULL Name, include Middle, spelling matches patient's ID used for verificationyes ID Band Matches Patient ID used for Verficationyes ID Band MRN Matches EMR MRNyes Advance Directive: Advance Directive/DNRno Advance Directive Information Givenpatient/family declined Falls Screen: Type of Assessmentadmission Moderate Risk Factorsdizziness/syncope High Risk Factorsrecent falls Risk for Injury Associated with Fallnone Fall Risk Conclusionhigh falls risk with low risk for associated injury [place] Safety InterventionsWDL *orient to call system *instruct to call for assistance before getting out of bed *non-slip footwear when patient is out of bed *call beverly in reach *personal items and telephone in reach *physically safe environment (no spills or clutter) *bed in lowest position with wheels locked *appropriate side rails in place *room/bathroom lighting operational, light cord in reach *appropriate signage on door Family Violence Screen: Are you or have you been threatened or abused physically, emotionally, or sexually by anyoneno Has anyone ever threatened to hurt your family or your petsno Does anyone try to keep you from having/contacting other friends or doing things outside your homeno Do you feel UNSAFE going back to the place where you are livingno Do you feel anyone has exploited or taken advantage of you financially or of your personal propertyno Clinical assessment: Are there any apparent signs of injuries/behaviors that could be related to abuse/neglectno Social Service Consult for abuse/neglect needed this visitno Functional screen: Functional Screen: In the recent/past 2-4 weeks, patient or family have noticedno issues that require a rehabilitation consult at this time Learning Assessment (Patient): Patient is Able to be Assessed for Learningyes Factors Influencing Readiness to Learnnone Factors that Impact Ability to Learnnone Devices/Methods Used to Communicatenone Learning Preferencesaudio Cultural Considerationsnone Developmental Considerationsnone Muslim Considerationsnone Learning Assessment (Other Learner): Other learner availableno Suicide/Depression Screen: During the past month, have you often been bothered by feeling down, depressed or hopelessno During the past month, have you often had little interest or pleasure in doing thingsno Have you had any thoughts of harming yourselfno Have you had any thoughts of harming anyone elseno Adult Nutrition Screen: Have you recently lost weight without tryingno Have you been eating poorly because of a decreased appetiteno Malnutrition Screening Tool Score0 Malnutrition Screening Tool RiskMST = 0 or 1 Not at risk. Eating well with little or no weight loss Nutrition Consult needed this visitno Can Patient Participate in Room Serviceyes Patient requires Paper Dishes/Plastic Utensilsno Pain Screen: Pain Scalenumerical 0-10 Pain Scale Educationteaching provided Current Pain Level3 = Mild Acceptable Pain Level3 = Mild Expression of Pain (nonverbal)none Chronic Painyes generalized Spiritual Screen: Are there any cultural, spiritual, zoroastrian practices/values/needs that are important for us to knowno Do you want a visit/item from Pastoral Careno Would you like your Air Hole Driller/Manager Traffic notifiedno CAGE: Is this an injured [place] at a [place] Center [place]/[place]): no Vaccinations: Vaccination - Influenza Vaccination Screen: Is it flu season (between and August 02)Yes Screening for identified contraindications to influenza vaccination patient/caregiver refusal Vaccination - Pneumonia Vaccination Screen: Patient has received a previous pneumonia vaccine:yes Farzad: Skin - Farzad Scale: Farzad: Sensory Perception (response to environment)(4) no impairment Farzad: Moisture (degree skin exposed to moisture)(4) rarely moist Farzad: Activity (ability to walk)(4) walks frequently Farzad: Mobility (amount/control of body movement)(4) no limitation Farzad: Nutrition (quality of food intake)(3) adequate Farzad: Friction and Shear(3) no apparent problem Farzad: Score22 Significant Indicatiors: Significant Indicators: Complete Pressure Injury: Pressure Injury Present on Admissionno Electronic Signatures: Judy Monet (RN) (Signed 20-Oct-2018 11:00) Authored: Admission Risk Screens, Vaccinations, Farzad, Pressure Injury Last Updated: 20-Oct-2018 11:00 by Judy Monet (RN) Normal [facility] CBCon 10-20-2018 Erythrocyte distribution wid th (RBC) [Ratio] 14.6 % High 11.5 - 14.5 [facility] Comment on above: Performed By: #### C BC #### [address] [address] Hematocrit (Bld) [Volume fraction] 25.7 % Low 3 6.0 - 46.0 [facility] Comment on above: Performed By: #### C BC #### [address] [address] Hemoglobin (Bld) [Mass/Vol] 7.7 g/dL Low 12.0 - 1 6.0 [facility] Comment on above: Performed By: #### C BC #### [address] [address] MCHC (RBC) [Mass/Vol] 30.0 g/dL Low 32.0 - 36.0 [facility] Comment on above: Performed By: #### C BC #### [address] [address] MCV (RBC) [Entitic vol] 93 fL Normal 80 - 100 [facility] [place] on above: Performed By: #### C BC #### [address] [address] Nucleated RBC/100 WBC (Bld) [Ratio] 0.0 /100 WBC Normal 0.0 - 0.0 [facility] Comment on above: Performed By: #### C BC #### [address] [address] Platelets (Bld) [#/Vol] 241 10*3/uL Normal 150 - 450 [facility] Comment on above: Performed By: #### C BC #### [address] [address] RBC (Bld) [#/Vol] 2.76 x10E12/L Low 4.00 - 5.20 [facility] Comment on above: Performed By: #### C BC #### [address] [address] WBC (Bld) [#/Vol] 7.7 10*3/uL Normal 4.4 - 11.3 [facility] [place] on above: Performed By: #### C BC #### [address] [address] COMPREHENSIVE PANELon 2018 Albumin [Mass/Vol] 3.6 g/dL Normal 3.4 - 5.0 [facility] Comment on above: Performed By: #### C MP ####[address] [address] ALP [Catalytic activity/Vol] 91 U/L Normal 33 - 13 6 [facility] Comment on above: Performed By: #### C MP ####[address] [address] ALT [Catalytic activity/Vol] 34 U/L Normal 7 - 45 [facility] Comment on above: Result Comment: Shannon ents treated with Sulfasalazine may generate falsely decreased results for ALT. Performed By: #### C MP ####[address] [address] Anion gap [Moles/Vol] 11 mmol/L Normal 10 - 20 [facility] Comment on above: Performed By: #### C MP ####[address] [address] AST [Catalytic activity/Vol] 22 U/L Normal 9 - 39 [facility] Comment on above: Performed By: #### C MP ####[id number] [place] [address] Bilirubin [Mass/Vol] 0.2 mg/dL Normal 0.0 - 1.2 [facility] Comment on above: Performed By: #### C MP ####[address] [address] Calcium [Mass/Vol] 8.4 mg/dL Low 8.6 - 10.3 [facility] Comment on above: Performed By: #### C MP ####[address] [address] Chloride [Moles/Vol] 111 mmol/L High 98 - 107 [facility] Comment on above: Performed By: #### C MP ####[address] [address] Creatinine [Mass/Vol] 0.92 mg/dL Normal 0.50 - 1.05 [facility] Comment on above: Performed By: #### C MP ####[address] [address] GFR- AM. >60 Normal >60 [facility] Comment on above: Result Comment: CALC ULATIONS OF ESTIMATED GFR ARE PERFORMED USING THE MDRD STUDY EQUATION FOR THE IDMS-TRACEABLE CREATININE METHODS. CLIN CHEM 2007;53:766-72 Performed By: #### C MP ####[address] [address] GFR-NON AM. >60 Normal >60 [facility] Comment on above: Performed By: #### C MP ####[address] [address] Glucose [Mass/Vol] 120 mg/dL High 74 - 99 [facility] [place] on above: Performed By: #### C MP ####[address] [place] [address] HCO3 (Bld) [Moles/Vol] 22 mmol/L Normal 21 - 32 [facility] Comment on above: Performed By: #### C MP ####[id number] [facility] [place] [address] Potassium [Moles/Vol] 4.7 mmol/L Normal 3.5 - 5.3 [facility] Comment on above: Performed By: #### C MP ####[address] [address] Protein [Mass/Vol] 6.0 g/dL Low 6.4 - 8.2 [facility] Comment on above: Performed By: #### C MP ####[address] [address] Sodium [Moles/Vol] 139 mmol/L Normal 136 - 145 [facility] Comment on above: Performed By: #### C MP ####[address] [address] Urea nitrogen [Mass/Vol] 45 mg/dL High 6 - 23 [facility] Comment on above: Performed By: #### C MP ####[address] [address] Albumin [Mass/Vol] Canceled [facility] [place] on above: Order Comment: TEST COMPREHENSIVE PANEL WAS CANCELLED, 10/20/2018 16:05 ?Cancel Reason: Cancelled. Performed By: #### C MP #### [address] [place] [address] ALP [Catalytic activity/Vol] Canceled Normal [facility] Comment on above: Order Comment: TEST COMPREHENSIVE PANEL WAS CANCELLED, 10/20/2018 16:05 ?Cancel Reason: Cancelled. Performed By: #### C MP #### [address] [place] [address] ALT [Catalytic activity/Vol] Canceled Normal [facility] Comment on above: Order Comment: TEST COMPREHENSIVE PANEL WAS CANCELLED, 10/20/2018 16:05 ?Cancel Reason: Cancelled. Result Comment: Shannon ents treated with Sulfasalazine may generate falsely decreased results for ALT. Performed By: #### C MP #### [address] [place] [address] Anion gap [Moles/Vol] Canceled Normal [facility] Comment on above: Order Comment: TEST COMPREHENSIVE PANEL WAS CANCELLED, 10/20/2018 16:05 ?Cancel Reason: Cancelled. Performed By: #### C MP #### [address] [place] [address] AST [Catalytic activity/Vol] Canceled Normal [facility] Comment on above: Order Comment: TEST COMPREHENSIVE PANEL WAS CANCELLED, 10/20/2018 16:05 ?Cancel Reason: Cancelled. Performed By: #### C MP #### [address] [place] [address] Bilirubin [Mass/Vol] Canceled Normal [facility] Comment on above: Order Comment: TEST COMPREHENSIVE PANEL WAS CANCELLED, 10/20/2018 16:05 ?Cancel Reason: Cancelled. Performed By: #### C MP #### [address] [place] [address] Calcium [Mass/Vol] Canceled [facility] [place] on above: Order Comment: TEST COMPREHENSIVE PANEL WAS CANCELLED, 10/20/2018 16:05 ?Cancel Reason: Cancelled. Performed By: #### C MP #### [address] [place] [address] Chloride [Moles/Vol] Canceled Normal [facility] Comment on above: Order Comment: TEST COMPREHENSIVE PANEL WAS CANCELLED, 10/20/2018 16:05 ?Cancel Reason: Cancelled. Performed By: #### C MP #### [address] [place] [address] Creatinine [Mass/Vol] Canceled Normal [facility] Comment on above: Order Comment: TEST COMPREHENSIVE PANEL WAS CANCELLED, 10/20/2018 16:05 ?Cancel Reason: Cancelled. Performed By: #### C MP #### [address] [place] [address] GFR- AM. Canceled Normal [facility] Comment on above: Order Comment: TEST COMPREHENSIVE PANEL WAS CANCELLED, 10/20/2018 16:05 ?Cancel Reason: Cancelled. Result Comment: CALC ULATIONS OF ESTIMATED GFR ARE PERFORMED USING THE MDRD STUDY EQUATION FOR THE IDMS-TRACEABLE CREATININE METHODS. CLIN CHEM 2007;53:766-72 Performed By: #### C MP #### [address] [place] [address] GFR-NON AM. Canceled Normal [facility] Comment on above: Order Comment: TEST COMPREHENSIVE PANEL WAS CANCELLED, 10/20/2018 16:05 ?Cancel Reason: Cancelled. Performed By: #### C MP #### [address] [place] [address] Glucose [Mass/Vol] Canceled [facility] [place] on above: Order Comment: TEST COMPREHENSIVE PANEL WAS CANCELLED, 10/20/2018 16:05 ?Cancel Reason: Cancelled. Performed By: #### C MP #### [address] [place] [address] HCO3 (Bld) [Moles/Vol] Canceled [facility] Comment on above: Order Comment: TEST COMPREHENSIVE PANEL WAS CANCELLED, 10/20/2018 16:05 ?Cancel Reason: Cancelled. Performed By: #### C MP #### [address] [place] [address] Potassium [Moles/Vol] Canceled [facility] Comment on above: Order Comment: TEST COMPREHENSIVE PANEL WAS CANCELLED, 10/20/2018 16:05 ?Cancel Reason: Cancelled. Performed By: #### C MP #### [address] [place] [address] Protein [Mass/Vol] Canceled [facility] [place] on above: Order Comment: TEST COMPREHENSIVE PANEL WAS CANCELLED, 10/20/2018 16:05 ?Cancel Reason: Cancelled. Performed By: #### C MP #### [address] [place] [address] Sodium [Moles/Vol] Canceled [facility] [place] on above: Order Comment: TEST COMPREHENSIVE PANEL WAS CANCELLED, 10/20/2018 16:05 ?Cancel Reason: Cancelled. Performed By: #### C MP #### [facility] [address] [place] [address] Urea nitrogen [Mass/Vol] Canceled Normal [facility] Comment on above: Order Comment: TEST COMPREHENSIVE PANEL WAS CANCELLED, 10/20/2018 16:05 ?Cancel Reason: Cancelled. Performed By: #### C MP #### [facility] [address] [place] [address] Clinical Intervention - Nguyễn talavera 10-20-2018 Clinical Intervention - Pharmacy Pharmacist's Clinical Intervention: Is this intervention medication reconciliation related: Yes, HISTORY Electronic Signatures: Helena Guillen (MobileSpan) (Signed 20-Oct-2018 12:41) Authored: Pharmacist's Clinical Intervention Last Updated: 20-Oct-2018 12:41 by Helena Guillen (MobileSpan) [facility] Clinical Intervention - Pharmacy Pharmacist's Clinical Intervention: Is this intervention medication reconciliation related: Yes, ALLERGY Electronic Signatures: Helena Guillen ([employer]Span) (Signed 20-Oct-2018 12:40) Authored: Pharmacist's Clinical Intervention Last Updated: 20-Oct-2018 12:40 by Helena Guillen (MobileSpan) [facility] Discharge Planning Noteon Discharge Planning Note Discharge Needs Assessment: Discharge Planning Assessment [id number] Readmission Within the Last 30 Daysno previous admission in last 30 days Primary Care PhysicianDr Ambrose Adult Information: Lives Withspouse; children; daughter Financial Concernsnone Patient Learning: Factors that Impact Ability to Learnnone(1) Other Factors: Functional Screen: In the recent/past 2-4 weeks, patient or family have noticedno issues that require a rehabilitation consult at this time(2) Discharge Needs: Anticipated Discharge Dispositionhome Type of Equipment Currently in the Homecane Discharge Planning: Discharge Planning: Patient admitted from [place] to ICU for a syncopal episode 10/21/18 1225- Met with pt at bedside, she lives with her and daughter in a 1 story home, reports being independent, drives, uses a cane as needed. Pt has hx of DM II- has a working glucose meter and supplies. PCP is Dr Ambrose, seen 3 wks ago. Preferred pharmacy is [facility] on [facility] [facility] in [place], reports taking her medications as prescribed and is able to afford them. Pt plans to return home, denies any needs. Ritu HERRING T[facility] Final Disposition/Discharge: Disposition/Discharge Information: Discharge/Transfer Information: Discharge/Transfer Date/[id number] Discharged Accompanied Byspouse Discharge Modewheelchair Transportation Methodprivate car Valuables/Medications/Belongings Returnedyes Final DispositionHome Electronic Signatures: Judy Monet (RN) (Signed 20-Oct-2018 11:07) Authored: Discharge Planning Note Ritu Ruiz (SUSPENDER MAKER) (Signed 21-Oct-2018 13:40) Authored: Discharge Planning Note Sharmin Mayfield (LOCKSTITCH TOPSTITCHER) (Signed 22-Oct-2018 16:42) Authored: Final Disposition/Discharge Last Updated: 22-Oct-2018 16:42 by Sharmin Mayfield (LOCKSTITCH TOPSTITCHER) References: 1. Data Referenced From 5. Education 10/20/2018 10:55 AM 2. Data Referenced From Admission Risk Screen - Adult 10/20/2018 10:55 AM Normal [facility] EMR ADDONon 10-20-2018 ADDON CONFIRMATION REQUEST REC'D Normal [facility] Comment on above: Performed By: #### E MRAD #### [facility] [address] [place] [address] [facility] 10-20-2018 Glucose [Mass/Vol] 120 mg/dL High 74 - 99 [facility] Comment on above: Performed By: #### G BENNIE ####[facility] [place] [address] History and Physical - Nanette Portillo 10-20-2018 History and Physical - Critical Care Service: Critical Care Service: ServiceICU History of Present Illness: Admission Reason: Coughing up blood, syncope HPI: 63-year-old female with a history of CAD with stent for failing stress test (on ASA and Plavix), type 2 diabetes, depression, hypertension, anemia (baseline hemoglobin near 10), GERD, Rheumatoid arthritis, status post upper and lower colonoscopy 12 days ago with reported findings of just some polyps but otherwise normal per the patient. She presented to [facility] on September 20 for evaluation of syncopal episodes at home. She reports large hemoptysis episode of roughly 70 mL of blood that was dark in nature. She denies hematochezia or melena. She denies nausea and vomiting. She denies alcohol use and is unaware of any liver disease. She denies previous history of GI bleeding. She denies chest pain. She denies shortness of breath. She denies palpitations. At OSH the patients hemoglobin was 8.5 (baseline around 10). She did have an episode of orthostatic hypotension that improved with IV fluids. ALT/AST within normal limits. INR and PTT within normal limits area. Her vital signs were stable. She was given IV fluids and Protonix bolus. EKG was sinus rhythm with nonspecific T-wave inversion in aVL. She is transferred here and admitted to the ICU for concerns of GI bleeding. Other PMHx: Syncope Hemoptysis Anemia-baseline hemoglobin around 10 CAD with stent in 2017 for failing stress test (on ASA and Plavix) Type 2 diabetes Depression Hypertension GERD Rheumatoid arthritis Comorbidities: Comorbid Conditionsdiabetes, hypertension, Rheumatoid arthritis Diabtetes TypeType 2 Insulin Dependentyes DM Acuity or Statusunknown DM Complicationsunknown Family History: Family History: reviewed and not pertinent to presenting problem Social History: Social History: Smoking Statusformer smoker Alcohol Usedenies Drug Usedenies Allergies: Humira: Rash, Itching Intolerances: statins: Muscle Weakness (Severe) antihistamines: Fatigue, Lethargy, Confusion, Mood Alteration Medications Prior to Admission: Glucosamine Chondroitin oral capsule: null Vitamin C 1000 mg oral tablet: 1 tab(s) orally once a day Vitamin D3 1000 intl units oral capsule: 1 cap(s) orally once a day pantoprazole 40 mg oral delayed release tablet: 1 tab(s) orally once a day Aspir 81 oral delayed release tablet: 1 tab(s) orally once a day Plaquenil 200 mg oral tablet: null Elavil 25 mg oral tablet: 1 tab(s) orally once a day (at bedtime) Plavix 75 mg oral tablet: 1 tab(s) orally once a day lisinopril 10 mg oral tablet: 1 tab(s) orally once a day Coreg 6.25 mg oral tablet: 1 tab(s) orally 2 times a day alendronate 70 mg oral tablet: 1 tab(s) orally once a week on multivitamin: 1 tab(s) orally once a day metFORMIN 850 mg oral tablet: orally 2 times a day sertraline 50 mg oral tablet: 75 milligram(s) orally once a day furosemide 20 mg oral tablet: 10 milligram(s) orally once a day CeleBREX 100 mg oral capsule: 1 cap(s) orally once a day Lantus 100 units/mL subcutaneous solution: 10 unit(s) subcutaneous 2 times a day HumaLOG 100 units/mL subcutaneous solution: SLIDING SCALE subcutaneous 2 times a day 151-165 = 2 units 166-180 = 4 units 181-195 = 6 units 196-210 = 8 units 211-220 = 10 units 221-250 = 12 units Per patient, for every BS inrease of 15, she adds 2 additionsl units Enbrel 25 mg subcutaneous kit: 25 milligram(s) subcutaneous once a week on . Review of Systems: Constitutional: NEGATIVE: Fever, Chills, Anorexia, Weight Loss, Malaise Eyes: NEGATIVE: Blurry Vision, Drainage, Diploplia, Redness, Vision Loss/ Change ENMT: NEGATIVE: Nasal Discharge, Nasal Congestion, Ear Pain, Mouth Pain, Throat Pain Respiratory: POSITIVE: Hemoptysis; NEGATIVE: Dry Cough, Productive Cough, Wheezing, Shortness of Breath Cardiac: POSITIVE: Syncope; NEGATIVE: Chest Pain, Dyspnea on Exertion, Orthopnea, Palpitations Gastrointestinal: NEGATIVE: Nausea, Vomiting, Diarrhea, Constipation, Abdominal Pain Genitourinary: NEGATIVE: Discharge, Dysuria, Flank Pain, Frequency, Hematuria Musculoskeletal: NEGATIVE: Decreased ROM, Pain, Swelling, Stiffness, Weakness Neurological: POSITIVE: Dizziness, Syncope; NEGATIVE: Confusion, Headache, Seizures Psychiatric: NEGATIVE: Anxiety, Hallucinations, Sleep Changes, Suicidal Ideas; COMMENTS: Depression Endocrine: NEGATIVE: Heat Intolerance, Cold Intolerance, Sweat, Polyuria, Thirst Hematologic/Lymph: NEGATIVE: Anemia, Bruising, Easy Bleeding, Night Sweats, Petechiae Allergic/Immunologic: NEGATIVE: Anaphylaxis, Itchy/ Teary Eyes, Itching, Sneezing, Swelling Objective: Objective Information: Objective Information T [id number] [id number]% Date/Time10/20 10: 12: 12: 12: 12:00 Range(36.5C - 36.5C ) (82 - 96 ) (18 - 40 ) (122 - 175 )/ (42 - 70 ) (97% - 99% ) Pain reported at 10/20 10:45: 3 = Mild Weights 10/20 11:01: Weight in kg (Weight (kg)) 99 10/20 11:01: Weight in lbs ((lbs)) 218.2 10/20 11:01: BMI (kg/m2) (BMI (kg/m2)) 38.671 Physical Exam: Neurological: alert and oriented x3, intact senses, motor, response and reflexes, normal strength Cardiovascular: Regular, rate and rhythm, no murmurs, 2+ equal pulses of the extremities, normal S 1and S 2 Respiratory/Thorax: Patent airways, CTAB, normal breath sounds with good chest expansion, thorax symmetric Genitourinary: No Discharge, vesicles or other abnormalities Gastrointestinal: Nondistended, soft, non-tender, no rebound tenderness or guarding, no masses palpable, no organomegaly, +BS, no bruits Skin: Warm and dry, no lesions, no rashes Musculoskeletal: no joint swelling, normal strength Constitutional: Well developed, awake/alert/oriented x3, no distress, alert and cooperative Eyes: PERRL, clear sclera ENMT: mucous membranes moist, no apparent injury, no lesions seen Head/Neck: Neck supple, no apparent injury Extremities: normal extremities, no cyanosis edema, contusions or wounds, no clubbing Lymphatic: No significant lymphadenopathy Psychological: Appropriate mood and behavior [place] T Coma Scale: Best Eye Response: (E4) spontaneous Best Motor Response: (M6) obeys commands Best Verbal Response: (V5) oriented [place] Score: 15 Recent Lab Results: Results: Assessment and Plan: Neurology: Diagnosis: Assessment Syncope hemoptysis Anemia-baseline hemoglobin around 10 CAD with stent in 2017 for failing stress test (on ASA and Plavix) Type 2 diabetes Depression Hypertension GERD Rheumatoid arthritis Plan: Neuro: Alert and oriented. No issues. Continue antidepressants. Monitor neuro status CV: No tachycardia. Stable hemodynamics. Hold aspirin and Plavix for now. Hold antihypertensives for now. Will resume once no active bleeding confirmed. She did have syncope that resolved with fluid bolus, will check a single troponin and obtain an ECG to have for baseline comparison. Monitor hemodynamics, Goal MAP > 65. Monitor and optimize electrolytes, keep potassium >4.0, magnesium > 2.0. Pulmonary: No issues on room air. No pulmonary history. Continue to monitor respiratory status. GI: Dr. Robledo has been consulted and will await his recommendations. Nothing by mouth with home meds for now. Pantoprazole 80 mg twice a day until further recommendations by GI. 10/05/18 at OSH had upper and lower EGD which found: A. FUNDIC POLYP, POLYPECTOMY: --GASTRIC HYPERPLASTIC POLYP--HELICOBACTER PYLORI NOT IDENTIFIED B. IRREGULAR Z-LINE, BIOPSY: --GASTRIC TYPE MUCOSA WITH REACTIVE CHANGES. Note: No goblet cells identified. GI prophylaxis. See above /FEN: Creatinine 1.25 at outside hospital, 1.11 in May 2018. Monitor renal function. MIVF with LR at 75 ml/hr until able to take orally from GIs standpoint. Heme: She has baseline anemia. Hemoglobin baseline is near 10; 8.5 at outside hospital. Will check again now. If stable will recheck with morning labs unless she changes clinically and then we will check more frequently. Will type and cross in case transfusion needed. INR (0.98) and platelets (268) were WNL at OSH. Will recheck here. VTE prophylaxis: SCDs, no pharmacologic agent given risk for bleeding Endo: History of diabetes. Holding home Lantus and metformin while nothing by mouth. Accu-Cheks with SS coverage. Goal sugar less than 180. ID: Afebrile. No infection suspected. Will check CBC and monitor. Disposition: [default value] Admit to the intensive care unit. Critical care will follow. Total care time-55 minutes Code Status: Code StatusFull Code Signatures/Attestation/Certification: Note Completion: AGA StatementI am solely responsible for all documentation captured within this clinical document, including critical care time, if applicable. The attending physician signature below is only for admission certification purposes. Critical Care PatientI have reviewed and evaluated the most recent data and results, personally examined the patient, and formulated the plan of care as presented above. This patient was critically ill and required continued critical care treatment. Teaching and any separately billable procedures are not included in the time calculation. Billing Provider Critical Care Time35 minute(s) Primary Critical Care Issue/Treatment (See Assessment and Plan for greater detail)-- For the nature of the critical condition and treatment, this documentation has been prepared by the attending physician/AGA- billing provider of these critical care services.; -- This patient is believed to have, or have the potential for, a life-threatening gastrointestinal hemorrhage. We are treating with appropriate blood products, fluids and/or pressors, as indicated, as well as intensive monitoring. Please see assessment and plan above for greater detail. ADM Certification: Attending Provider Inpatient Certification StatementI certify this patients need for inpatient care based on the above documentation including; the order to admit as inpatient, the anticipated length of stay, diagnosis, problem list and plan of care, and discharge plan. Admission Order - View OnlyCurrent Admission Order. Admit to Inpatient Adult Community Transfer to, [facility] [place] [facility] Admitting Diagnosis, K92.0 Gastrointestinal hemorrhage with hematemesis , Attending Provider Ildefonso Starks David Admission Order Certification order has been placed by Ildefonso Starks Electronic Signatures: Ildefonso Starks) (Signed 20-Oct-2018 23:06) Authored: Signatures/Attestation/Certification Co-Signer: Service, History of Present Illness, Comorbidities, Family History, Social History, Allergies, Medications Prior to Admission, Review of Systems, Objective, Assessment and Plan, Signatures/Attestation/Certification Homero Enriquez (FRAMING CARPENTER-KITCHEN CLERK) (Signed 21-Oct-2018 05:40) Authored: Service, History of Present Illness, Comorbidities, Family History, Social History, Allergies, Medications Prior to Admission, Review of Systems, Objective, Assessment and Plan, Signatures/Attestation/Certification Last Updated: 21-Oct-2018 05:40 by Homero Enriquez (FRAMING CARPENTER-KITCHEN CLERK) Normal [facility] PT/INRon 10-20-2018 INR Coag (PPP) [Relative time] 1.0 {INR} Normal 0.9 - 1.1 [facility] Comment on above: Performed By: #### P TINR ####[facility] [place] [address] PT Coag (PPP) [Time] 11.5 s Normal 9.7 - 12.7 [facility] Comment on above: Performed By: #### P TINR ####[facility] [facility] [place] [address] INR Coag (PPP) [Relative time] Canceled Normal [facility] Comment on above: Order Comment: TEST PT/INR WAS CANCELLED, 10/20/2018 16:05 ?Cancel Reason: Cancelled. Performed By: #### P TINR #### [address] [place] [address] PT Coag (PPP) [Time] Canceled Normal [facility] Comment on above: Order Comment: TEST PT/INR WAS CANCELLED, 10/20/2018 16:05 ?Cancel Reason: Cancelled. Performed By: #### P TINR #### [address] [place] [address] Patient Profile - Adult v2on 10-20-2018 Patient Profile - Adult v2 Profile: Initial Info: How to be AddressedBev Spoken Language PreferredEnglish (1) Are you currently using the Personal [employer] Health Record or TDI Basslineno Are you interested in learning more about [employer] for the management of your healthdeclined Stated Reason for AdmissionSyncope Limitations on Visitors/Phone Callsnone [facility] Employment Statusretired Current or Previous Servicenone Patient Belongingssent home Medications Brought to Hospitalno History of MDROno General Health: Weight in kg99 kilogram(s) Weight in wwv453.2 pound(s) Height in feet5 feet Height in inches3 inch(es) Height in cm160 centimeter(s) BMI (kg/m2)38.671 square meter Weight Methodactual (measured) Scale Typebed Height Methodstated Blood Avoidance/Restrictionsnone Previous Transfusion Reactionno Feel Rested Upon Awakeningyes Sleep Aids/Routinenone RSP Based Care: How would you like to participate in your careActive What is the number one concern for you during this hospitalizationgetting better What is the most important thing we can do to support you during this hospitalizationgo home Is there anything we need to know to best care for youget discharged Recent Change in Mood/Behaviordenies Major Change/Loss/Stressor/Fearsdenies Techniques to [place] with Loss/Stress/Changemeditation Substance: Current or Former Substance Use never: Cigarette/Tobacco, e-Cigarette/Vaping(1), Alcohol(1), Street Drugs(1) Health Mgmt: Symptoms/Conditions Managed at Homecardiovascular; gastrointestinal; musculoskeletal Cardiovascular Symptoms/Conditionsvalvular disease Cardiovascular Management Strategiesdiet modification; exercise; medication therapy Cardiovascular Managementmanaged Gastrointestinal Symptoms/Conditionsreflux/heartburn Gastrointestinal Management Strategiesdiet modification; medication therapy Gastrointestinal Managementmanaged Musculoskeletal Symptoms/Conditionsosteoarthritis Musculoskeletal Management Strategiesexercise Musculoskeletal Managementmanaged Barriers to Managing Healthnone Relationship/Environ: Primary Source of Support/Comfortchild(suma) Lives Withother relative(s); spouse Living Arrangementshouse Significant Exposurenone Resource/Environmental Concernsnone Anticipated Transition [place] Services Anticipated at Transitionnone Significant IndicatorsComplete Information Review: Allergies, Home Meds and Significant Events have been Reviewed and Verified with Patient/Familyyes ALLERGY, INTOLERANCE, ADVERSE EVENT: Allergies: Humira: Drug, Rash, Active antihistamines: Drug Category, Psychosis, Active Intolerances: statins: Drug Category, Muscle Weakness, Active Electronic Signatures: Judy Monet (NEVAEH) (Signed 20-Oct-2018 11:06) Authored: Profile, Additional Information Last Updated: 20-Oct-2018 11:06 by Judy Monet (NEVAEH) References: 1. Data Referenced From Patient Profile - Preop v2 10/05/2018 7:24 AM Normal [facility] TROPONIN Ion 10-20-2018 Troponin I.cardiac [Mass/Vol] Canceled Normal [facility] Comment on above: Order Comment: per Nolvia Valentin cancelTEST TROPONIN I WAS CANCELLED, 10/20/2018 18:[address] Valentin. Result Comment: LESS THAN 0.04 NG/ML: NEGATIVE REPEAT TESTING IN THREE TO SIX HOURS IF CLINICALLY INDICATED. 0.04 - 0.5 NG/ML: CONSISTENT WITH POSSIBLE CARDIAC DAMAGE AND POSSIBLE INCREASED CLINICAL RISK. SERIAL MEASUREMENTS MAY HELP ASSESS EXTENT OF MYOCARDIAL DAMAGE. >0.5 NG/ML: CONSISTENT WITH CARDIAC DAMAGE, INCREASED CLINICAL RISK AND MYOCARDIAL INFARCTION. SERIAL MEASUREMENTS MAY HELP ASSESS EXTENT OF MYOCARDIAL DAMAGE. . Note: Troponin I testing is performed using different testing methodology at [facility] than at other [facility]. Direct result comparisons should only be made within the same method. Performed By: #### T ROP2 ####[address] [address] Troponin I.cardiac [Mass/Vol] ng/mL Normal 0.00 - 0.03 [facility] Comment on above: Result Comment: LESS THAN 0.04 NG/ML: NEGATIVE REPEAT TESTING IN THREE TO SIX HOURS IF CLINICALLY INDICATED. 0.04 - 0.5 NG/ML: CONSISTENT WITH POSSIBLE CARDIAC DAMAGE AND POSSIBLE INCREASED CLINICAL RISK. SERIAL MEASUREMENTS MAY HELP ASSESS EXTENT OF MYOCARDIAL DAMAGE. >0.5 NG/ML: CONSISTENT WITH CARDIAC DAMAGE, INCREASED CLINICAL RISK AND MYOCARDIAL INFARCTION. SERIAL MEASUREMENTS MAY HELP ASSESS EXTENT OF MYOCARDIAL DAMAGE. . Note: Troponin I testing is performed using different testing methodology at [facility] than at other [facility]. Direct result comparisons should only be made within the same method. Performed By: #### T ROP2 ####[address] [address] Troponin I.cardiac [Mass/Vol] Canceled Normal [facility] Comment on above: Order Comment: TEST TROPONIN I WAS CANCELLED, 10/20/2018 16:56 ORDER ERROR. Result Comment: LESS THAN 0.04 NG/ML: NEGATIVE REPEAT TESTING IN THREE TO SIX HOURS IF CLINICALLY INDICATED. 0.04 - 0.5 NG/ML: CONSISTENT WITH POSSIBLE CARDIAC DAMAGE AND POSSIBLE INCREASED CLINICAL RISK. SERIAL MEASUREMENTS MAY HELP ASSESS EXTENT OF MYOCARDIAL DAMAGE. >0.5 NG/ML: CONSISTENT WITH CARDIAC DAMAGE, INCREASED CLINICAL RISK AND MYOCARDIAL INFARCTION. SERIAL MEASUREMENTS MAY HELP ASSESS EXTENT OF MYOCARDIAL DAMAGE. . Note: Troponin I testing is performed using different testing methodology at [facility] than at other [facility]. Direct result comparisons should only be made within the same method. Performed By: #### T ROP2 ####[address] [address] TYPE + SCREENon 10-20-2018 ABO TYPE O Normal [facility] Comment on above: Performed By: #### T +S ####[address] [address] RH TYPE Positive Normal [facility] Comment on above: Performed By: #### T +S ####[address] [address] ABO TYPE Canceled Normal [facility] Comment on above: Order Comment: TEST TYPE + SCREEN WAS CANCELLED, 10/20/2018 16:05 ?Cancel Reason: Cancelled. Performed By: #### T +S #### [facility] [address] [place] [address] RH TYPE Canceled Normal [facility] Comment on above: Order Comment: TEST TYPE + SCREEN WAS CANCELLED, 10/20/2018 16:05 ?Cancel Reason: Cancelled. Performed By: #### T +S #### [facility] [address] [place] [address] Alk Phos Isoenzymeson 2017 Alk-Phosphatase Bone 60 U/L High 0-55 [facility] Comment on above: Performed By: #### 1 [id number] #### [facility] [address] [place] [address] Alk-Phosphatase Liver 82 U/L Normal 0-94 [facility] Comment on above: Result Comment: INTE RPRETIVE INFORMATION: Alk-Phosphatase Liver Calc Bone Specific Alkaline Phosphatase (1114081) and 5'-nucleotidase (4039449) may be useful in identifying disorders of bone and liver, respectively. Performed By: #### 1 [id number] #### [facility] [address] [place] [address] Alk-Phosphatase Other 0 U/L Normal [facility] Comment on above: Result Comment: Perf ormed by [employer], [address] [place] [id number] [email or web address], Sedrick Sue MD - Lab. Director Performed By: #### 1 [id number] #### [facility] [address] [place] [address] ALP enzyme act/vol 142 U/L High 40-120 [facility] Comment on above: Performed By: #### 1 [id number] #### [facility] [address] [place] [address] Gijdi-1-Dxlcqeajwqe, Totalon 07-28-2017 Vufgn-4-Ezjtikqogzl, Total 125 mg/dL Normal 84-218 [facility] Anti-Nuclear Ab Titer w/ALIYAH Panelon 07-28-2017 Anti-Nuclear Ab (GILL) Pattern HOMOGENEOUS Normal [facility] Anti-Nuclear Ab Titer 1:40 Normal [facility] Centromere (ALIYAH) Ab, IgG 0.2 AI Normal [facility] Comment on above: Result Comment: REF VALUES < 1.0 = NEGATIVE >=1.0 = POSITIVE Chromatin (ALIYAH) Ab, IgG <0.2 Normal [facility] Comment on above: Result Comment: REF VALUES < 1.0 = NEGATIVE >=1.0 = POSITIVE dsDNA Ab, IgG <1.0 [facility] Comment on above: Result Comment: REF VALUES NEGATIVE: <= 4 IU/ML EQUIVOCAL: 5- 9 IU/ML POSITIVE: >=10 IU/ML PARISA-1 (ALIYAH) Ab, IgG <0.2 Normal [facility] Comment on above: Result Comment: REF VALUES < 1.0 = NEGATIVE >=1.0 = POSITIVE Ribonucleic Prot (ALIYAH) Ab, IgG <0.2 [facility] Comment on above: Result Comment: REF VALUES < 1.0 = NEGATIVE >=1.0 = POSITIVE Ribosomal P Prot (ALIYAH) Ab, IgG <0.2 [facility] Comment on above: Result Comment: REF VALUES < 1.0 = NEGATIVE >=1.0 = POSITIVE Scleroderma (Scl-70) (ALIYAH) Ab, IgG <0.2 [facility] Comment on above: Result Comment: REF VALUES < 1.0 = NEGATIVE >=1.0 = POSITIVE Alcazar (ALIYAH) Ab, IgG <0.2 Normal [facility] ealthcare Comment on above: Result Comment: REF VALUES < 1.0 = NEGATIVE >=1.0 = POSITIVE Alcazar/WINDOWS DEPLOYMENT TECHNICIAN (ALIYAH) Ab, IgG <0.2 Normal [facility] Comment on above: Result Comment: REF VALUES < 1.0 = NEGATIVE >=1.0 = POSITIVE SSA (Ro) (ALIYAH) Ab, IgG <0.2 Normal [facility] Comment on above: Result Comment: REF VALUES < 1.0 = NEGATIVE >=1.0 = POSITIVE SSB (La) (ALIYAH) Ab, IgG <0.2 Normal [facility] Comment on above: Result Comment: REF VALUES < 1.0 = NEGATIVE >=1.0 = POSITIVE Anti-Nuclear Ab W/Rfx to Tit er, ENAon 07-28-2017 Anti-Nuclear Ab, W/Rfx to Titer Positive Abnormal NEGA TIVE [facility] Healthcare Ceruloplasminon 07-28-2017 Ceruloplasmin 30 mg/dL Normal 20-60 [facility] Healthc are Ferritinon 07-28-2017 Ferritin mass conc 348 ng/mL High 8-150 [facility] Comment on above: Performed By: #### 1 [id number] #### [facility] [address] [place] [address] Hepatic Function Panelon Albumin mass conc 4.1 g/dL Normal 3.4-5.0 [facility] Comment on above: Performed By: #### 1 [id number] #### [facility] [address] [place] [address] Albumin/Globulin mass ratio 1.4 {ratio} Normal 0.9-2.4 [facility] Comment on above: Performed By: #### 1 [id number] #### [facility] [address] [place] [address] ALP enzyme act/vol 141 U/L High 45-117 [facility] Comment on above: Performed By: #### 1 [id number] #### [facility] [address] [place] [address] ALT enzyme act/vol 44 U/L Normal 7-45 [facility] Comment on above: Performed By: #### 1 [id number] #### [facility] [address] [place] [address] AST enzyme act/vol 29 U/L Normal 13-39 [facility] Comment on above: Performed By: #### 1 [id number] #### [facility] [address] [place] [address] Bilirubin mass conc 0.3 mg/dL Normal 0.0-1.2 [facility] Comment on above: Performed By: #### 1 [id number] #### [facility] [address] [place] [address] Bilirubin.direct mass conc 0.1 mg/dL Normal 0.0-0.3 [facility] Healthcare Comment on above: Performed By: #### 1 [id number] #### [facility] [address] [place] [address] Protein mass conc 7.0 g/dL Normal 6.4-8.2 [facility] Hea lthcare Comment on above: Performed By: #### 1 [id number] #### [facility] [address] [place] [address] Hepatitis A Total Abon 07-28 Hepatitis A Total Ab REACTIVE Abnormal NONREACTIVE [facility] Comment on above: Result Comment: Shannon ents receiving more than 5 mg/day of biotin may have interf in test results. A sample should be taken no sooner than eight after previous dose. Contact [phone] for additional infor Hepatitis B Core Antibodies, Totalon 07-28-2017 Hepatitis B Core Antibodies, Total NONREACTIVE Normal NONREACTIVE [facility] Comment on above: Result Comment: Shannon ents receiving more than 5 mg/day of biotin may have interf in test results. A sample should be taken no sooner than eight after previous dose. Contact [phone] for additional infor Hepatitis B Surface Abon Hepatitis B Surface Ab <3.1 Normal <10 [facility] Comment on above: Result Comment: INTE RPRETIVE CRITERIA: <10 mIU/mL....NONREACTIVE >=10 mIU/mL...REACTIVE . Patients receiving more than 5 mg/day of biotin may have interf in test results. A sample should be taken no sooner than eight after previous dose. Contact [phone] for additional infor Hepatitis B Surface Antigeno n 07-28-2017 Hepatitis B Surface Antigen NONREACTIVE Normal NONREAC TIVE [facility] Comment on above: Result Comment: Shannon ents receiving more than 5 mg/day of biotin may have interf in test results. A sample should be taken no sooner than eight after previous dose. Contact [phone] for additional infor Hepatitis C Antibody w/rfx t o Confirmon 07-28-2017 Hepatitis C Antibody NON-REACTIVE Normal NONREACTIVE [facility] Comment on above: Result Comment: Shannon ents receiving more than 5 mg/day of biotin may have interf in test results. A sample should be taken no sooner than eight after previous dose. Contact [phone] for additional infor Iron Profileon 07-28-2017 Iron Binding Capacity 331 ug/dL Normal 250-565 [facility] Healthcare Comment on above: Performed By: #### 1 [id number] #### [facility] [address] [place] [address] Iron mass conc 72 ug/dL Normal 35-150 [facility] Health care Comment on above: Performed By: #### 1 [id number] #### [facility] [address] [place] [address] Percent Saturation 22 % Normal 14-27 [facility] althcare Comment on above: Performed By: #### 1 [id number] #### [facility] [address] [place] [address] Unbound Iron Binding Capacity 259 ug/dL Normal 90-340 [facility] Healthcare Comment on above: Performed By: #### 1 [id number] #### [facility] [address] [place] [address] Mitochondrial M2 Ab, IgGon 0 07-28-2017 Mitochondrial M2 Ab, IgG 3.0 Units Normal 0.0-20.0 [facility] Comment on above: Result Comment: INTE RPRETIVE INFORMATION: Mitochondrial (M2) Antibody, IgG 20.0 Units or less ......... Negative 20.1 - 24.9 Units........... Equivocal 25.0 Units or greater....... Positive Performed by [employer], [address] [place], [place] [id number] [email or web address], Sedrick Sue MD - Lab. Director Performed By: #### 1 [id number] #### [facility] [address] [place] [address] Smooth Muscle (F-Actin) IgG w/Rfxon 07-28-2017 Smooth Muscle Ab, IgG Positive Normal NEGATIVE [facility] Smooth Muscle Ab, IgG Titer 1:20 Normal [facility] Healthcare PROGRESSon 04-21-2017 [facility] NOTES Normal [facility] Encounters Encounter Date Encounter Type Care Provider Facility Start: 03-16-2023 End: [facility]23 [facility] Start: 03-16-2023 End: 03-16-2023 Patient encounter procedure MD Bree Ambrose Work Phone: [facility] [address] Work Phone: Start: 03-16-2023 End: 03-17-2023 ambulatory MD Bree Ambrose Work Phone: [facility] Work Phone: Start: 03-02-2023 End: 03-02-2023 ambulatory HUMA TRIANA Not Available Start: 03-01-2023 End: 03-02-2023 ambulatory Arley Keller Facility:[facility] Start: 12-08-2022 End: 12-09-2022 ambulatory Arley Keller Facility:[facility] Start: 11-10-2022 ambulatory Micaela L Candelario Facility: [facility] Start: 09-28-2022 End: 09-28-2022 ambulatory [facility] Start: 08-04-2022 End: 08-05-2022 ambulatory BREE AMBROSE Facility: [facility] [place] Start: 06-30-2022 End: 07-01-2022 ambulatory Micaela L Candelario Facility:[facility] Start: 06-30-2022 End: 07-01-2022 ambulatory Micaela L Candelario Facility: [facility] Start: 06-30-2022 End: 06-30-2022 Lab Drop off Micaela L Candelario [facility] Start: 06-20-2022 ambulatory Micaela Candelario Facility:[facility] Start: 05-21-2022 End: 05-22-[address] ANTONINA LUTZ Facility:[facility] Start: 05-14-2022 End: 05-22-[address] BREE AMBROSE . Facility:[facility] Start: 01-22-2022 End: 01-23-[address] BREE AMBROSE . Facility:[facility] Start: 12-23-2021 Office outpatient vi sit 15 minutes Bree Ambrose Work Phone: [facility] [address] [facility] Work Phone: Start: 12-23-[address] Ary Arrieta Fac ility:[id number] Start: 12-02-2021 Patient encounter procedure Bree Ambrose Work Phone: HI-Krldazqrel-Rnpge[facility] [address] Work Phone: Start: 11-14-2021 End: 12-10-[address] BREE AMBROSE . Facility:[facility] Start: 02-11-2021 Patient encounter procedure Bree Ambrose Work Phone: VV-Veiriwrjhinjmgaj-Fm [address] [facility] Work Phone: Start: 02-11-[address] [facility] Facility[id number] Start: 06-01-2018 Patient encounter procedure PROVIDER UNKNOWN Facility:7 Start: 09-09-2017 Patient encounter procedure PROVIDER UNKNOWN Facility:7 Start: 08-04-2017 Patient encounter procedure PROVIDER UNKNOWN Facility:7 Start: 07-28-2017 Patient encounter procedure PROVIDER UNKNOWN Facility:7 Start: 07-28-2017 Patient encounter procedure PROVIDER UNKNOWN Facility:7 Start: 04-21-2017 Ambulatory [facility] Procedures Date Procedure Procedure Detail Performing Clinician Start: 01-20-2021 Blepharoplasty of up per eyelid Micaela Candelario Start: 10-20-2018 Antibody screen Comment on above: Performed By: #### T +S ####[facility] [facility] [address] Start: 10-20-2018 Antibody screen Comment on above: Order Comment: TEST TYPE + SCREEN WAS CANCELLED, 10/20/2018 16:05 ?Cancel Reason: Cancelled. Performed By: #### T +S #### [facility] [address] [address] [place] [address] Appendectomy Micaela Candelario Arthroplasty of knee Micaela Sc hwab Arthroscopy, knee Bree Cee ht Work Phone: Biopsy Of Liver Bree Ambrose Work Phone: Decompression of median nerve Micaela Candelario Excision of ganglion cyst Parisa mendoza Candelario History of placement of stent for coronary artery disease Micaela Palomino Hysterectomy Bree Blayne Ambrose Work Phone: Release of trigger finger Parisa reji Candelario Repair of hip Micaelareji Palomino Total Knee Replacement Left Bree Ambrose Work Phone: Plan of Treatment Date Care Activity Detail Author Start: 12-14-2023 [facility] Start: 08-31-2023 ambulatory Ambulatory Facility:[facility] Start: 12-23-2021 VIRYARITZA, Provider : Kenroy Low, Status: Pen, Time: 2:40 PM GENTRY, Provider: Kenroy Low, Status: Pen, Time: 2:40 PM BM-Aunlmnpkgg-Oqwwvt 101 Work Phone: Immunizations Immunization Date Immunization Notes Care Provider Fa [facility] 01-22-2022 influenza virus vacc ine, unspecified formulation Micaela Candelario [facility] 01-17-2020 Fluad Quadrivalent 0 .5 ML Intramuscular Prefilled Syringe Bree Ambrose Work Phone: OW-Wpaeonsdbr-Pcis ia [address] Work Phone: 01-17-2020 influenza virus vacc ine, unspecified formulation Micaela Candelario [facility] 01-04-2019 influenza virus vacc ine, unspecified formulation Micaela Candelario [facility] 01-04-2019 Seasonal trivalent influenza vaccine, adjuvanted, preservative free Bree Ambrose Work Phone: [id number]-Nyybtyajjt-Wsyy ia 101 Work Phone: 12-31-2017 influenza virus vacc ine, unspecified formulation Micaela Candelario [facility] 12-31-2017 Influenza, injectabl e, Madin Maria Del Carmen Canine Kidney, preservative free, quadrivalent Bree Ambrose Work Phone: CZ-Qsvhrrvfzb-Lrlo ia 101 Work Phone: 02-16-2017 influenza virus vacc ine, unspecified formulation Micaela Palomino [facility] 02-16-2017 influenza, injectabl e, quadrivalent, preservative free Bree mAbrose Work Phone: IO-Kcqkbdksej-Nbmq ia 101 Work Phone: 04-05-2015 pneumococcal polysaccharide vaccine, 23 valent Bree Ambrose Work Phone: [facility] 02-03-2015 influenza, injectabl e, madin maria del carmen canine kidney, preservative free Bree Ambrose Work Phone: TL-Hgudbghjki-Wsqp ia 101 Work Phone: 11-21-2014 pneumococcal conjuga te vaccine, 13 valent Bree Ambrose Work Phone: [facility] Payers Date Payer Category Payer Self-pay [id number] 2021 Unknown [id number] 1961 Medicare [id number] 1959 Unknown [id number] 1959 Unknown [id number] 1953 Unknown [id number] 2.16.8 40.1.295332.3.579.2.355 1953 Unknown [id number] 2.16.8 40.1.783181.3.579.2.355 1953 Unknown [id number] 2.16.8 40.1.657696.3.579.2.355 1953 Unknown [id number] 2.16.8 40.1.205263.3.579.2.355 1953 Unknown [id number] 2.16.8 40.1.960217.3.579.2.355 1953 Unknown [id number] 2.16. 840.1.628739.3.579.2.356 1953 Unknown [id number] 2.16. 840.1.504091.3.579.2.356 1953 Unknown [id number] 2.16.84 0.1.626834.3.579.2.593 1953 Unknown [id number] 2.16.84 0.1.350556.3.579.2.593 1953 Unknown [id number] 2.16.84 0.1.199685.3.579.2.593 1953 Unknown [id number] 2.16.84 0.1.264508.3.579.2.593 1953 Unknown [id number] 2.16.840 .1.835635.3.579.2.1259 1953 Unknown [id number] 2.16.8 40.1.419416.3.579.2.727 1953 Unknown [id number] 2.16.8 40.1.320777.3.579.2.727 1953 Unknown [id number] 2.16.8 40.1.386288.3.579.2.727 1953 Unknown [id number] 2.16.8 40.1.580924.3.579.2.727 1953 Unknown [id number] 2.16.8 40.1.531731.3.579.2.727 1953 Unknown [id number] 2.16.8 40.1.483596.3.579.2.727 1953 Unknown [id number] 2.16.8 40.1.711391.3.579.2.727 1953 Unknown [id number] 2.16.8 40.1.086564.3.579.2.727 1953 Unknown [id number] 2.16.8 40.1.908709.3.579.2.727 1953 Unknown [id number] 2.16.8 40.1.672550.3.579.2.727 Unknown [id number] Unknown Unknown [id number] 2.16.8 40.1.463247.3.579.2.531 Social History Date Type Detail Facility No illicit drug use No illicit drug use M E-Mwgelgkdmvtnbrrn-Vjt [address] [address] [facility] Work Phone: Start: 06-30-2022 Tobacco smoking status Never s moked tobacco (finding) [facility] Tobacco smoking status Never [facility] Sex Assigned At Female [facility] Start: 1955 Sex Assigned At Female F [facility] Clinical Notes 09-28-2022 Note Date & Type Note Facility 09-28-2022 Note May repeat Carotid U S next year in light 5 years since last US. Continue ASA and crestor [facility] 09-28-2022 Note Currently euvolemic, and stable [facility] 09-28-2022 Note Lipid abnormalities are well controlled Continue crestor [facility] 09-28-2022 Note Coronary artery dise ase is stable, no concerning symptoms Continue GDMT= ASA, crestor, coreg, and lisinopril/HCTZ continue risk factor modifications- heart healthy diet, regular exercise as tolerated and continue all medications. [facility] 09-28-2022 Note [facility] CARDIOLOGY PROGR ESS NOTE HPI: Lj Doll is a 67 y.o. female here for routine 1 year f/U for CAD, HTN, HPL, carotid stenosis- < 50% on last Carotid US- 2019 HPI Currently pt is doing very well, denied any activity limiting symptoms. Denied chest pain, shortness of breath orthopnea or palpitations Review of Systems Constitutional: Negative. Respiratory: Negative. Cardiovascular: Negative. Neurological: Negative. All other systems reviewed and are negative. Visit Vitals BP 132/65 (BP Location: Left arm, Patient Position: Sitting, BP Cuff Size: Adult) Pulse 87 Ht 1.588 m (5' 2.5 ) Wt 92.4 kg (203 lb 9.6 oz) SpO2 95% BMI 36.65 kg/m??? Smoking Status Never BSA 2.02 m??? Allergies Allergen Reactions Adalimumab Hives Other Reaction(s): Hives Diclofenac Other Reaction(s): does not help Diphenhydramine Other reaction(s): VERY FOGGY BRAIN Other Reaction(s): brain fog, VERY FOGGY BRAIN Oxaprozin Other reaction(s): INEFFECTIVE Other Reaction(s): INEFFECTIVE Oxycodone-Acetaminophen Nausea And Vomiting Dstddkr-Nps-Qdk Reductase Inhibitors Medications: Current Outpatient Medications on File Prior to Visit Medication Sig Dispense Refill amitriptyline (Elavil) 25 mg tablet Take 25 mg by mouth. carvedilol (Coreg) 3.125 mg tablet Take 3.125 mg by mouth. celecoxib (CeleBREX) 200 mg capsule take 1 capsule (200MG) by ORAL route every day as needed Oral furosemide (Lasix) 20 mg tablet Take 20 mg by mouth in the morning. gabapentin (Neurontin) 100 mg capsule Take 200 mg by mouth twice a day. hydroxychloroquine (Plaquenil) 200 mg tablet Take 200 mg by mouth in the morning. insulin glargine (Lantus Solostar U-100 Insulin) 100 unit/mL (3 mL) pen Inject under the skin. insulin glargine-yfgn 100 unit/mL (3 mL) insulin pen Inject under the skin. pantoprazole (ProtoNix) 40 mg EC tablet Take 40 mg by mouth. rosuvastatin (Crestor) 5 mg tablet Take 5 mg by mouth in the morning. semaglutide (Ozempic) 1 mg/dose (2 mg/1.5 mL) pen injector Inject 1 mg under the skin. sertraline (Zoloft) 50 mg tablet Take 50 mg by mouth in the morning. aspirin 81 mg EC tablet Take 81 mg by mouth. calcium carbonate EX (Tums Extra Strength) 300 mg (750 mg) chewable tablet Chew 500 mg. cholecalciferol (Vitamin D-3) 25 MCG (1000 units) tablet Take 1,000 Units by mouth in the morning. etanercept (EnbreL) 50 mg/mL (1 mL) injection Inject 1 mL under the skin. exenatide (Byetta) 5 mcg/dose (250 mcg/mL) 1.2 mL injection Inject 1 each under the skin in the morning. MemBlaze Veena 2 Sensor kit lisinopriL-hydrochlorothiazide 10-12.5 mg tablet Take 1 tablet by mouth in the morning. metFORMIN (Glucophage) 850 mg tablet Take 850 mg by mouth. [DISCONTINUED] colchicine 0.6 mg tablet Take 0.6 mg by mouth in the morning. No current facility-administered medications on file prior to visit. Physical Exam: Constitutional: Appearance: Normal appearance. Without apparent distress HENT: Head: Normocephalic and atraumatic. Nose: Nose normal. Mouth/Throat: Mouth: Mucous membranes are moist. Eyes: Extraocular Movements: Extraocular movements intact. Conjunctiva/sclera: Conjunctivae normal. Neck: Vascular: No JVD. Cardiovascular: Rate and Rhythm: Normal rate and regular rhythm. Pulses: Dorsalis pedis pulses are 3 on the right side and 3on the left side. Posterior tibial pulses are 3 on the right side and 3 on the left side. Heart sounds: Normal heart sounds, S1 normal and S2 normal. Pulmonary: Effort: Pulmonary effort is normal. Breath sounds: Normal breath sounds. Abdominal: General: Bowel sounds are normal. Palpations: Abdomen is soft. Musculoskeletal: General: Normal range of motion. Cervical back: Normal range of motion. Right lower leg: No edema. Left lower leg: No edema. Skin: General: Skin is warm and dry. Capillary Refill: Capillary refill takes less than 2 seconds. Neurological: General: No focal deficit present. Mental Status: She is alert and oriented to person, place, and time. Psychiatric: Mood and Affect: Mood normal. Behavior: Behavior normal. Thought Content: Thought content normal. Judgment: Judgment normal. Labs: 04/17/21 CBC normal Renal function normal Liver function normal Lipid levels well controlled Last lab values have been reviewed CV Testin03/2019 Echo 06/2018 Carotid US No echocardiogram results found for the past 12 months Assessment/Plan: Coronary atherosclerosis Coronary artery disease is stable, no concerning symptoms Continue GDMT= ASA, crestor, coreg, and lisinopril/HCTZ continue risk factor modifications- heart healthy diet, regular exercise as tolerated and continue all medications. Hyperlipidemia Lipid abnormalities are well controlled Continue crestor Diastolic dysfunction Currently euvolemic, and stable Carotid stenosis, asymptomatic, bilateral May repeat Carotid US next year in l (more content not included)... [facility] Evaluation + Plan note Future Appointments Appointment Date:08/04/2022 10:40:00 AM Scheduled Provider:BREE AMBROSE MD Location:[facility] Appointment Type: Open Diagnostic Tests PendingUrine Culture 06/30/22 [facility] Evaluation note No assessment inform ation available [facility] Work Phone: History of Present illness Narrative 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 she is unchangedUpper Gastrointestinal: no abdominal pain, no eructation, no difficulty swallowing, no early satiety, no heartburn, no jaundiced, no nausea, no pain while swallowing.Lower Gastrointestinal: no abdominal swelling, no bloating, no constipation, no diarrhea, no fecal incontinence, no bowel urgency.Liver Disease no alteration in sleep wake cycle, no ankle swelling, no cognitive impairment, no confusion, no icterus.Symptom History:Modifying Factors:Associated Symptoms:Skin: there are no skin symptoms.Eyes: there are no eye symptoms.Ears: there are no ear symptoms.Nose: there are no nasal symptoms.Mouth/Throat/Teeth: there are no oral symptoms.Neck: there are no neck symptoms.Cardiovascular: there are no cardiovascular symptoms. CP-Fyisumqgojnglxbw-Qjzbcm [facility] [address] [facility] Work Phone: Hospital course Narrative No data available for this section [facility] Hospital Discharge instructions No data available for this section [facility] Progress note No data available for this section [facility] Summary Purpose Family History No Family History Records FoundNo Family History Records FoundNo Family History Records FoundNo Family History Records FoundNo Family History Records FoundNo Family History Records FoundNo Family History Records FoundNo Family History Records FoundNo Family History Records FoundNo Family History Records FoundNo Family History Records Found Advance Directives No Advanced Directives Records Found Advance Directive Response Recorded Date/ Time Advance Directives No December 9:07am Hospital Course Note Send Summary: Discharge Summ kirstin Providers: Provider RoleProvider Name AttendingJeffrey Crowell Shaffer R.S. Note Recipients: Bree Ambrose MD - [id number] [] Discharge: Summary: Admission Date: .20-Oct-2018 10:48:00 Discharge Date: 22-Oct-2018 Attending Physician at Discharge: Jeffrey Crowell Admission Reason: Coughing up blood, syncope(1) Final Discharge Diagnoses: Gastrointestinal hemorrhage with hematemesis, hiatal hernia Procedures: EGD: no biopsies; no evidence of bleeding; hiatal hernia noted Condition at Discharge: Satisfactory Disposition at Discharge: .Home Vital Signs: T PRBPSpO2 [id number]/6396% Date/Time10/22 7: 7: 7: 7: 7:22 Range(35.9C - 37C ) (69 - 89 ) (16 - 16 ) (121 - 126 )/ (54 - 63 ) (96% - 97% ) Highest temp of 37 C was recorded at 10/21 15:25 Physical Exam: Neurological: alert and oriented x3, intact senses, motor, response and reflexes, normal strength Cardiovascular: Regular, rate and rhythm, no murmurs, 2+ eq (more content not included)... Chief Complaint * A telephone visit (audio only) between the patient (at the originating site) and the provider (at the distant site) was utilized to provide this telehealth service. * Verbal consent was requested and obtained from LJ DOLL on this date, 02/11/2021 11:20 AM , for a telehealth visit. * YEARLY FOLLOW UP NAFLD * 0930 ) Patient referred by Dr. Low for open-access fibroscan for diagnosis of NAFLD. Patient identified x2 and confirmed fasting for >3 hours. * Fibroscan study completed using M probe and 10 consecutive valid measurements obtained. Pt tolerated procedure well. * Results: Median= 4.8 kPa * IQR/med= 27% * CAP= 235 dB/m * Pt advised that Dr. Low will read the study and send a report to his doctor. * Migdalia Alcazar LPN * A telephone visit (audio only) between the patient (at the originating site) and the provider (at the distant site) was utilized to provide this telehealth service. * Verbal consent was requested and obtained from LJ DOLL on this date, 12/23/2021 02:40 PM , for a telehealth visit. * NAFLD Additional Source Comments INFORMATION SOURCE (unrecogn ized section and content) DATE CREATED AUTHOR 09/28/2017 Rizwana Armington Garcia godfrey DATE CREATED AUTHOR AUTHOR'S ORGANIZ ATION 06/07/2018 [facility] DATE CREATED AUTHOR AUTHOR'S ORGANIZ ATION 11/01/2018 [facility] DATE CREATED AUTHOR AUTHOR'S ORGANIZ ATION 12/14/2020 [facility] DATE CREATED AUTHOR AUTHOR'S ORGANIZ ATION 01/04/2022 [facility] DATE CREATED AUTHOR AUTHOR'S ORGANIZ ATION 01/08/2022 [facility] DATE CREATED AUTHOR AUTHOR'S ORGANIZ ATION 06/05/2022 [facility] DATE CREATED AUTHOR AUTHOR'S ORGANIZ ATION 09/28/2022 [facility] DATE CREATED AUTHOR AUTHOR'S ORGANIZ ATION 03/03/2023 [facility] DATE CREATED AUTHOR AUTHOR'S ORGANIZ ATION 03/17/2023 [facility] DATE CREATED AUTHOR AUTHOR'S ORGANIZ ATION 03/22/2023 [facility] Patient Care team informatio n (unrecognized section and content) Team Status: Active Member Role Status Dates Bree Ambrose MD Primary Care Provider Active Team Status: Inactive Member Role Status Dates Bree Ambrose MD Primary Care Provider Active Fransisco Benavides MD Attending Provider Active Goals (unrecognized section and content) Goals may be documented in a n alternate section FOR RECORDS PERTAINING TO PATIENTS WHO ARE OR HAVE BEEN ENROLLED IN A CHEMICAL DEPENDENCY/SUBSTANCEABUSE PROGRAM, SOME INFORMATION MAY BE OMITTED. This clinical summary was aggregated from multiple sources. Caution should be exercised in using it in the provision of clinical care. This summary normalizes information from multiple sources, and as a consequence, information in this document may materially change the coding, format and clinical context of patient data. In addition, data may be omitted in some cases. CLINICAL DECISIONS SHOULD BE BASED ON THE PRIMARY CLINICAL RECORDS. [employer] provides no warranty or guarantee of the accuracy or completeness of information in this document.
== END 2023-02-15 08:48 | disposition home or self-care (01) ==
LOC: RAD 08:47
PROVIDERS: PCP Family Medicine; Visit Provider Internal Medicine Rheumatology
DX: M81.0 Age-related osteoporosis without current pathological fracture (principal); M85.80 Other specified disorders of bone density and structure, unspecified site
CPT/HCPCS: 77080

== ENCOUNTER 2023-05-06 15:35 | Outpatient (OUT) | payer MEDICARE, SELFPAY ==
[2023-05-06 16:22] LABS: Hemoglobin 10.9 g/dL (12.0-16.0)
[2023-05-06 16:22] LABS: Bilirubin Urine NEGATIVE (NEGATIVE); Blood Urine NEGATIVE (NEGATIVE); Clarity Urine CLOUDY (CLEAR); Color Urine LT. YELLOW (YELLOW); Glucose Urine UA NEGATIVE (NEGATIVE); Ketones Urine NEGATIVE (NEGATIVE); Leukocyte Esterase Urine MODERATE (NEGATIVE); Nitrite Urine POSITIVE (NEGATIVE); Protein Urine NEGATIVE (NEG/TRACE); Specific Gravity Urine >=1.030 (1.005-1.025); Urobilinogen Urine 0.2 EU/dL (0.2-1.0); pH Urine 5.5 (5.0-9.0)
[2023-05-06 16:25] LABS: Protein Creatinine Ratio Urine 0.49; Total Protein Urine Random 54.7 mg/dL (<=11.9)
[2023-05-06 16:38] LABS: Albumin Level 3.6 g/dL (3.4-5.0); BUN Creatinine Ratio 16.5; Calcium 8.8 mg/dL (8.5-10.1); Carbon Dioxide 25.8 mmol/L (21.0-32.0); Chloride 105 mmol/L (98-107); Estimated GFR (African America 48 (>=60); Estimated GFR (Non-African Ame 39 (>=60); Glucose 101 mg/dL (74-106); Magnesium 1.7 mg/dL (1.8-2.4); Phosphorus 3.1 mg/dL (2.6-4.7); Potassium 3.8 mmol/L (3.5-5.1); Sodium 139 mmol/L (136-145)
[2023-05-08 06:12] LABS: Complement C3, Serum 137 mg/dL (82-167); Complement C4, Serum 31 mg/dL (12-38)
[2023-05-09 13:10] LABS: PTH, Intact 91 pg/mL (15-65)
[2023-05-10 12:08] LABS: Free Kappa Lt Chains,S 56.1 mg/L (3.3-19.4); Free Lambda Lt Chains,S 37.1 mg/L (5.7-26.3); Kappa/Lambda Ratio,S 1.51 (0.26-1.65)
[2023-05-10 15:07] LABS: Immunoglobulin A, Qn, Serum 238 mg/dL (87-352); Immunoglobulin G, Qn, Serum 964 mg/dL (586-1602); Immunoglobulin M, Qn, Serum 121 mg/dL (26-217)
== END 2023-05-06 15:36 | disposition home or self-care (01) ==
LOC: LAB 15:38
PROVIDERS: PCP Family Medicine
DX: I13.10 Hypertensive heart and chronic kidney disease without heart failure, with stage 1 through stage 4 chronic kidney disease, or unspecified chronic kidney disease (principal)
CPT/HCPCS: 36415; 80069; 81003; 82570; 82784; 83516; 83521; 83735; 83970; 84156; 84166; 85014; 85018; 86160; 86334; 86335

== ENCOUNTER 2023-05-17 13:44 | Outpatient (RCR) | payer MEDICARE, SELFPAY | END 2023-07-03 11:39 | disposition home or self-care (01) | LOC: PT 13:44 | PROVIDERS: PCP Family Medicine; Visit Provider Orthopaedic Surgery | DX: S42.91XD Fracture of right shoulder girdle, part unspecified, subsequent encounter for fracture with routine healing (principal) | CPT/HCPCS: 97110; 97140; 97161; G0283 ==

== ENCOUNTER 2023-05-18 14:46 | Outpatient (RCR) | payer MEDICARE, SELFPAY | END 2023-06-12 17:25 | disposition home or self-care (01) | LOC: PT 14:46 | PROVIDERS: PCP Family Medicine; Visit Provider Family Medicine | DX: R29.6 Repeated falls (principal); Z91.81 History of falling | CPT/HCPCS: 97110; 97112; 97140; 97161 ==

== ENCOUNTER 2023-11-19 10:16 | Outpatient (OUT) | payer MEDICARE, SELFPAY ==
[2023-11-19 11:21] LABS: Bilirubin Urine NEGATIVE (NEGATIVE); Blood Urine NEGATIVE (NEGATIVE); Clarity Urine CLEAR (CLEAR); Color Urine LT. YELLOW (YELLOW); Glucose Urine UA NEGATIVE (NEGATIVE); Ketones Urine NEGATIVE (NEGATIVE); Leukocyte Esterase Urine SMALL (NEGATIVE); Nitrite Urine NEGATIVE (NEGATIVE); Protein Urine NEGATIVE (NEG/TRACE); Urobilinogen Urine 0.2 EU/dL (0.2-1.0); pH Urine 5.5 (5.0-9.0)
[2023-11-19 12:33] LABS: Creatinine Urine Random 31.62 mg/dL (20.00-300.00); Protein Creatinine Ratio Urine 0.28
[2023-11-19 14:26] LABS: Albumin Level 3.7 g/dL (3.4-5.0); Anion Gap 13.7; BUN Creatinine Ratio 20.8; Carbon Dioxide 25.4 mmol/L (21.0-32.0); Chloride 103 mmol/L (98-107); Estimated GFR (African America >60 (>=60); Estimated GFR (Non-African Ame 51 (>=60); Glucose 140 mg/dL (74-106); Phosphorus 3.1 mg/dL (2.6-4.7); Potassium 4.1 mmol/L (3.5-5.1); Sodium 138 mmol/L (136-145)
== END 2023-11-19 10:17 | disposition home or self-care (01) ==
LOC: LAB 10:16
PROVIDERS: PCP Family Medicine
DX: I13.10 Hypertensive heart and chronic kidney disease without heart failure, with stage 1 through stage 4 chronic kidney disease, or unspecified chronic kidney disease (principal); N18.31 Chronic kidney disease, stage 3a; E11.22 Type 2 diabetes mellitus with diabetic chronic kidney disease; Z79.1 Long term (current) use of non-steroidal anti-inflammatories (NSAID)
CPT/HCPCS: 36415; 80069; 81003; 82570; 84156

== ENCOUNTER 2023-11-19 10:17 | Outpatient (OUT) | payer MEDICARE, SELFPAY ==
[2023-11-19 11:11] LABS: Basophils Percent Auto 0.6 % (0.2-2.0); Eosinophils Absolute Auto 0.2 10^3/uL (0.0-0.7); Eosinophils Percent Auto 2.8 % (0.9-7.0); Hematocrit 35.5 % (36.0-48.0); Hemoglobin 11.4 g/dL (12.0-16.0); Immature Granulocytes Abs Auto 0.02 10^3/uL (0.00-0.03); Immature Granulocytes Pct Auto 0.3 % (0.0-0.5); Lymphocytes Absolute Auto 2.6 10^3/uL (1.2-3.8); Lymphocytes Percent Auto 36.3 % (20.5-60.0); Mean Corpuscular HGB Conc 32.1 g/dL (29.9-35.2); Mean Corpuscular Hemoglobin 28.4 pg (26.7-34.0); Mean Corpuscular Volume 88.5 fL (81.0-99.0); Mean Platelet Volume 9.2 fL (9.5-13.5); Monocytes Absolute Auto 0.6 10^3/uL (0.3-0.8); Monocytes Percent Auto 8.9 % (1.7-12.0); Neutrophils Absolute Auto 3.6 10^3/uL (1.4-6.5); Neutrophils Percent Auto 51.1 % (43.0-75.0); Platelet Count 262 10^3/uL (150-450); Red Blood Count 4.01 10^6/uL (4.20-5.40); White Blood Count 7.1 10^3/uL (4.0-11.0)
[2023-11-19 11:26] LABS: Erythrocyte Sedimentation Rate 62 mm/hr (<=30)
[2023-11-19 12:56] LABS: Alanine Aminotransferase 43 U/L (14-59); Alkaline Phosphatase 98 U/L (46-116); Aspartate Amino Transferase 27 U/L (15-37); Bilirubin Total 0.4 mg/dL (0.2-1.0); C Reactive Protein <0.50 mg/dL (<=0.50)
== END 2023-11-19 10:18 | disposition home or self-care (01) ==
LOC: LAB 10:18
PROVIDERS: PCP Family Medicine; Visit Provider Internal Medicine Rheumatology
DX: I13.10 Hypertensive heart and chronic kidney disease without heart failure, with stage 1 through stage 4 chronic kidney disease, or unspecified chronic kidney disease (principal); N18.31 Chronic kidney disease, stage 3a; E11.22 Type 2 diabetes mellitus with diabetic chronic kidney disease; Z79.1 Long term (current) use of non-steroidal anti-inflammatories (NSAID); M06.9 Rheumatoid arthritis, unspecified; Z79.899 Other long term (current) drug therapy
CPT/HCPCS: 36415; 80069; 81003; 82247; 82570; 84075; 84156; 84450; 84460; 85025; 85652; 86140

== ENCOUNTER 2023-12-27 10:41 | Outpatient (OUT) | payer MEDICARE, SELFPAY ==
--- NOTE | 2023-12-27 | MM_ITS ---
Patient Name: LJ DOLL MR#: [id number] : 1955 Exam Date: 12/27/2023 Ordering Doctor: DR. WILFREDO ALBRECHT . RADIOLOGY REPORT PROCEDURE: MM TOMOSYNTHESIS SCREENING BI COMPARISON: MG MAMM SCREEN EUGENIO W CAD, 05/23/2020. INDICATIONS: SCREENING FOR MALGINANT NEOPLASM OF BREAST Calculator Name NCI Breast Cancer Risk Assessment Tool 5 Year Breast Cancer Risk 1.20% Lifetime Breast Cancer Risk 3.70% Personal Breast Cancer No Personal Ovarian Cancer No Treatments None Family Cancers Brother with brain cancer at age 50. LOCATION: [facility] BREAST COMPOSITION: There are scattered areas of fibroglandular density. FINDINGS: DIAGNOSTIC CATEGORY 1--NEGATIVE. NO CHANGE FROM COMPARISON ASSESSMENT. Scattered benign-appearing calcifications are present. RIGHT BREAST: No significant suspicious finding. LEFT BREAST: No significant suspicious finding. RECOMMENDATIONS: ROUTINE MAMMOGRAM AND CLINICAL EVALUATION IN 12 MONTHS. PLEASE NOTE: A NORMAL MAMMOGRAM DOES NOT EXCLUDE THE POSSIBILITY OF BREAST CANCER. A CLINICALLY SUSPICIOUS PALPABLE LUMP SHOULD BE BIOPSIED. Dictated by: Homero Ball MD on 12/27/2023 at 12:43 Approved by: Homero Ball MD on 12/27/2023 at 12:44
== END 2023-12-27 10:42 | disposition home or self-care (01) ==
LOC: MAMMO 10:42
PROVIDERS: PCP Family Medicine; Visit Provider Family Medicine
DX: Z12.31 Encounter for screening mammogram for malignant neoplasm of breast (principal); Z80.8 Family history of malignant neoplasm of other organs or systems
CPT/HCPCS: 77063; 77067

== ENCOUNTER 2024-05-11 15:39 | Outpatient (OUT) | payer MEDICARE, SELFPAY ==
--- OUTSIDE RECORDS SUMMARY | 2024-05-11 16:06 | XMS_ITS | CCD ---
Author Organization [facility] [place] Care Team Providers Care [employer]r [employer] Name Role Phone FOSTER, SHEN Unavailable Unavailable FOSTER, SHEN Unavailable Unavailable FOSTER, SHEN Unavailable Unavailable FOSTER, SHEN Unavailable Unavailable UNKNOWN, PROVIDER Attending Unavailable AMBROSE, BREE Primary Care Unavailable UNKNOWN, PROVIDER Attending Unavailable AMBROSE, BREE Primary Care Unavailable UNKNOWN, PROVIDER Attending Unavailable AMBROSE, BREE Primary Care Unavailable UNKNOWN, PROVIDER Attending Unavailable AMBROSE, BREE Primary Care Unavailable UNKNOWN, PROVIDER Attending Unavailable AMBROSE, BREE Primary Care Unavailable Halie, Bree Cisneros Unavailable Unavailable Unavailable Dr. Ary Arrieta Attending Unavailable Ambrose, Bree Dominique Referring Unavailable Ambrose, Bree Dominique Primary Care Unavailable Gholam, Dr. Kenroy Real Attending Unavai luci Ambrsoe, Bree Dominique Referring Unavailable Ambrose, Bree Dominique Primary Care Unavailable AMBROSE ., DR BREE Cisneros Admitting Unavailable AMBROSE ., DR BREE Cisneros Attending Unavailable AMBROSE ., DR BREE Cisneros Primary Care Unavailable NELDA, DR SARKAR Admitting Unavailable AMBROSE ., DR BREE Cisneros Primary Care Unavailable NELDA, DR SARKAR Attending Unavailable NELDA, DR SARKAR Consulting Unavailable AMBROSE ., DR BREE Cisneros Primary Care Unavailable MISC, DR LYLES Admitting Unavailable MISC, DR LYLES Attending Unavailable MISC, DR LYLES Consulting Unavailable AMBROSE ., DR BREE Cisneros Primary Care Unavailable KUBITShilpi, DR SHELTON Falcon Admitting Unavailable KAMILAH, DR SHELTON Falcon Attending Unavailable BREE AMBROSE Primary Care Physician [phone] MD Bree Ambrose Primary Care Provider [phone] MD Fransisco Benavides Attending Provider [phone] DO Lalo Alvarado Emergency Provider MD Arley Keller Primary Care Provider [phone] Arley Keller MD Primary Care Provider Arley Keller Primary Care Physician [phone] TIMOTHY, ALYSSA Domingo Attending Unavailable AGUIRRE, ALYSSA T Attending Unavailable AGUIRRE, ALYSSA T Referring Unavailable KUBITZ, SHELTON R Attending Unavailable AGUIRRE, ALYSSA T Referring Unavailable AGUIRRE, ALYSSA T Attending Unavailable AGUIRRE, ALYSSA T Referring Unavailable KUBITZ, SHELTON R Attending Unavailable KUBITZ, SHELTON R Attending Unavailable KUBITZ, SHELTON R Attending Unavailable JOSELO THRASHER Attending Unavailable ELTAHAWSrinivas, EH Attending Unavailable Arley Keller Attending Unavailable Arley Keller Admitting Unavailable Arley Keller Attending Unavailable Arley Keller Attending Unavailable Arley Keller Admitting Unavailable Arley Keller Attending Unavailable CandelarioMicaela larios Attending Unavailable Akkina, Agustín Admitting Unavailable Akkina, Agustín Attending Unavailable Akkina, Agustín Referring Unavailable Arley Keller Attending Unavailable Arley Keller Admitting Unavailable Arley Keller Attending Unavailable RICKY VALDIVIA Attending Unavailable Arley Keller Attending Unavailable Arley Keller MD Primary Care Provider [phone] Fransisco Benavides MD Attending Provider MD Randolph Shah Attending Unavailable Arley Keller Referring Unavailable Arley Keller Attending Unavailable Fransisco Benavides Admitting Unavailable Fransisco Benavides Attending Unavailable Arley Keller Primary Care Unavailable Fransisco Benavides Attending Unavailable Arley Keller Primary Care Unavailable Fransisco Benavides Admitting Unavailable Allergies Allergy Classification Reported Allergen(s) Allergy Type Date of Onset Reaction(s) Facility (10 sources) adalimumab; Translations: [Humira] Drug Allergy Rash, Hives [facility] (6 sources) Hmg-Coa Reductase Inhibitors (Statins); Translations: [Statins] Allergy to drug (finding) [facility] Repository (12 sources) oxaprozin; Translations: [Daypro] Drug Allergy 09-22-19 INEFFECTIVE [facility] (3 sources) Antihistamine TABS; Translations: [Antihistamine TABS] Allergy to drug (finding) [facility]Gastro[facility] rology-[place] [address] [facility] Work Phone: (2 sources) black walnut pollen extract; Translations: [[id number] REDUCTASE INHIBITORS] Drug Allergy 12-14-19 14 [facility] Repository (2 sources) Diclofenac; Translations: [DICLOFENAC] Drug Allergy 04-09-19 15 [facility] Rep[facility] (1 source) diphenhydrAMINE Drug Allergy 01-05-20 13 [facility] (1 source) oxaprozin Drug Allergy 01-05-20 13 [facility] (8 sources) diphenhydrAMINE; Translations: [diphenhydramine] [facility] HMG-CoA reductase inhibitor; Translations: [statins] Drug allergy 03-03-20 17 MUSCLE CRAMPS [facility] (7 sources) adalimumab; Translations: [ADALIMUMAB] Drug Allergy 09-22-[address] [facility] (4 sources) Antihistamines - Alkylamine; Translations: [Antihistamines - Alkylamine] Allergy to substance 04-08-[address] [facility] (3 sources) Acetaminophen / oxyCODONE; Translations: [OXYCODONE-ACETAMIN OPHEN] Drug Allergy 03-03-20 17 Nausea And Vomiting [facility] (2 sources) Diclofenac Drug Allergy 09-22-19 23 [facility] (2 sources) diphenhydrAMINE Drug Allergy 09-22-19 [facility] (2 sources) Other Allergy to substance 09-22-19 [facility] (1 source) oxaprozin; Translations: [OXAPROZIN] Drug Allergy 09-22-19 [facility] Repository Medications Current Medications Medication Drug Class(es) Dates Sig (Normalized) Sig (Original) 3 ML semaglutide 1.34 MG/ML Pen Injector [Ozempic] (1 source) Start: 04-28-2024 inject 1 mg by subcutaneous injection every week Ozempic (1 mg dose) 4 mg/3 mL subcutaneous solution 1 mg, SubCutaneous, qWeek, # 9 mL, Refills(s) 0, Pharmacy: [facility]/pharmacy #[id number], 160, cm, 02/29/24 9:24:00 EST, Height/Length Dosing, 92.1, kg, 02/29/24 9:24:00 EST, Weight Dosing Start Date: 04/28/24 Status: Ordered acetaminophen 325 mg / HYDROcodone bitartrate 5 mg oral tablet (1 source) Opioid Agonist Start: 01-20-2021 Industry 325 mg-5 mg oral tablet 1 tab(s), Oral, q6hr for pain, 20 tab(s), Refill(s) 0, [facility]/pharmacy #[id number], 162, cm, 01/14/21 5:03:00 EDT, Height/Length Dosing, 100, kg, 01/14/21 5:03:00 EDT, Weight Dosing Start Date: 01/20/21 Status: Ordered amitriptyline hydrochloride 25 mg oral tablet (9 sources) Tricyclic Antidepressant Start: 12-09-2023 take 1 tablet by mouth at bedtime amitriptyline 25 mg Tab See Instructions, TAKE 1 TABLET BY MOUTH AT BEDTIME, # 90 tab(s), Refills(s) 1, Pharmacy: [facility] 160, cm, 08/31/23 9:10:00 EDT, Height/Length Dosing, 88.4, kg, 08/31/23 9:10:00 EDT, Weight Dosing Start Date: 12/09/23 Status: Ordered Start: 07-26-2023 take 1 tablet by mariluz th once daily at bedtime amitriptyline 25 mg Tab 25 mg = 1 tab(s), Oral, Once a day (at bedtime), # 90 tab(s), Refills(s) 1, Pharmacy: [place] 160, cm, 07/09/23 10:50:00 EDT, Height/Length Dosing, 87.6, kg, 07/09/23 10:50:00 EDT, Weight Dosing Start Date: 07/26/23 Status: Ordered Start: 01-13-2021 take 1 tablet by mariluz th once daily at bedtime amitriptyline 25 mg Tab 25 mg = 1 tab(s), Oral, Once a day (at bedtime), Refills(s) 0, Other (see comment) Start Date: 01/13/21 Status: Ordered Amitriptyline HC l TABS TAKE 1/2 tab at bedtime Quantity: 0 Refills: 0 Ordered: 21-Jul-2017 DO Active Aspirin (8 sources) Platelet Aggregation Inhibitor, Nonsteroidal Anti-inflammatory Drug Start: 12-08-2022 aspirin 81 mg, Da arsen, Refills(s) 0 Start Date: 12/08/22 Status: Ordered take 1 tablet by mouth once aspi rin 81 MG EC tablet Take 81 mg by mouth 1 (one) time. 0 Active Calcium Citrate / Vitamin D (4 sources) Start: 01-13-2021 take 1 tablet by mouth once daily calcium-vitamin D 1 TAB, Oral, Daily, Prophylaxis Start Date: 01/13/21 Status: Ordered carvedilol 3.125 mg oral tablet (9 sources) alpha-Adrenergi c Keenan, beta-Adrenergic Keenan Start: 01-25-2023 take 1 tablet by mouth twice daily carvedilol 3.125 mg Tab 3.125 mg = 1 tab(s), Oral, BID, # 180 tab(s), Refills(s) 3, Pharmacy: [facility], 160, cm, 12/08/22 10:18:00 EDT, Height/Length Dosing, 90.9, kg, 12/08/22 10:18:00 EDT, Weight Dosing Start Date: 01/25/23 Status: Ordered Start: 01-13-2021 take 1 tablet by mariluz th twice daily carvedilol 3.125 mg Tab 3.125 mg = 1 tab(s), Oral, BID, Refills(s) 0, High blood pressure Start Date: 01/13/21 Status: Ordered take 1 tablet by mariluz th twice daily at mealtime Coreg 6.25 MG Oral Tablet TAKE 1 TABLET TWICE DAILY WITH MEALS. Quantity: 0 Refills: 0 Ordered: 12-Apr-2018 DO Active Celebrate Multivitamin oral capsule (4 sources) Start: 01-13-2021 take 1 capsule by mouth once daily Celebrate Multivitamin oral capsule 1 cap(s), Oral, Daily, Prophylaxis Start Date: 01/13/21 Status: Ordered celecoxib 200 mg oral capsule (4 sources) Nonsteroidal Anti-inflammatory Drug Start: 01-13-2021 take 1 capsule by mouth once daily celecoxib 200 mg Cap 200 mg = 1 cap(s), Oral, Daily, Refills(s) 0, Inflammation Start Date: 01/13/21 Status: Ordered cholecalciferol 0.025 mg oral tablet (2 sources) Vitamin D take 1 tablet by mouth in the morning cholecalciferol (Vitamin D-3) 25 MCG (1000 UT) tablet Take 1,000 Units by mouth in the morning. 0 Active colchicine 0.6 mg oral tablet (2 sources) take 1 tablet by mouth in the morning colchicine 0.6 MG tablet Take 0.6 mg by mouth in the morning. 0 Active Continuous Blood Gluc Sensor (FreeStyle Denny 2 Sensor) misc (2 sources) Start: 02-03-2023 Continuous Blood Gluc Sensor (FreeStyle Denny 2 Sensor) [facility] CPAP supplies - Mask, tubing, connectors (2 sources) Start: 09-02-2023 CPAP supplies - Mask, tubing, connectors CPAP supplies - Mask, tubing, connectors, See Instructions, 1 EA, 2, CPAP supplies - Mask, tubing, connectors, Supply Start Date: 09/02/23 Status: Ordered Erythromycin (1 source) Macrolide, Macrolide Antimicrobial Start: 01-20-2021 erythromycin ophthalmic 0.5% ointment 0.5 in, Eye-Both, QID, 3.5 gram, Refill(s) 1, [id number], 162, cm, 01/14/21 5:03:00 EDT, Height/Length Dosing, 100, kg, 01/14/21 5:03:00 EDT, Weight Dosing Start Date: 01/20/21 Status: Ordered Enbrel (6 sources) Tumor Necrosis Factor Keenan Start: 01-13-2021 inject 50 mg by subcutaneous injection every week Enbrel 50 mg, SubCutaneous, qWeek, Other (see comment) Start Date: 01/13/21 Status: Ordered inject 1 mL by subcu taneous injection every week etanercept (Enbrel) 50 MG/ML injection Inject 1 mL under the skin 1 (one) time per week. 0 Active folic acid 1 mg oral tablet (2 sources) take 1 tablet by mouth in the morning folic acid (Folvite) 1 MG tablet Take 1 mg by mouth in the morning. 0 Active fresstyle denny 3 sensors (1 source) Start: 04-18-2024 fresstyle denny 3 sensors fresstyle denny 3 sensors, See Instructions, 12 EA, 4, to check BS e11.22, [id number], Supply, 160, cm, 02/29/24 9:24:00 EST, Height/Length Dosing, 92.1, kg, 02/29/24 9:24:00 EST, Weight Dosing Start Date: 04/18/24 Status: Ordered furosemide 20 mg oral tablet (6 sources) Loop Diuretic Start: 07-26-2023 take 1 tablet by mouth once daily furosemide 20 mg Tab 20 mg = 1 tab(s), Oral, Daily, # 90 tab(s), Refills(s) 3, Pharmacy: [facility] 160, cm, 07/09/23 10:50:00 EDT, Height/Length Dosing, 87.6, kg, 07/09/23 10:50:00 EDT, Weight Dosing Start Date: 07/26/23 Status: Ordered Start: 01-13-2021 take 1 tablet by mariluz th once daily furosemide 20 mg Tab 20 mg = 1 tab(s), Oral, Daily, Refills(s) 0, Other (see comment) Start Date: 01/13/21 Status: Ordered gabapentin 100 mg oral capsule (6 sources) Anti-epileptic Agent Start: 04-24-2024 take 2 capsules by mouth at bedtime gabapentin 100 mg Cap See Instructions, TAKE TWO CAPSULES BY MOUTH AT BEDTIME, # 180 cap(s), Refills(s) 1, Pharmacy: [facility]/pharmacy #[id number], 160, cm, 02/29/24 9:24:00 EST, Height/Length Dosing, 92.1, kg, 02/29/24 9:24:00 EST, Weight Dosing Start Date: 04/24/24 Status: Ordered Start: 12-09-2023 take 2 capsules by m outh at bedtime gabapentin 100 mg Cap See Instructions, TAKE TWO CAPSULES BY MOUTH AT BEDTIME, # 180 cap(s), Refills(s) 1, Pharmacy: [facility] 160, cm, 08/31/23 9:10:00 EDT, Height/Length Dosing, 88.4, kg, 08/31/23 9:10:00 EDT, Weight Dosing Start Date: 12/09/23 Status: Ordered Start: 07-26-2023 take 2 capsules by m outh at bedtime gabapentin 100 mg Cap 200 mg = 2 cap(s), Oral, Bedtime, # 180 cap(s), Refills(s) 1, Pharmacy: [facility] 160, cm, 07/09/23 10:50:00 EDT, Height/Length Dosing, 87.6, kg, 07/09/23 10:50:00 EDT, Weight Dosing Start Date: 07/26/23 Status: Ordered Start: 01-13-2021 take 2 capsules by m outh at bedtime gabapentin 100 mg Cap 200 mg = 2 cap(s), Oral, Bedtime, Refills(s) 0, Other (see comment) Start Date: 01/13/21 Status: Ordered glucosamine sulfate 500 mg oral capsule (1 source) Start: 01-13-2021 take 1 capsule by mouth once daily glucosamine 500 mg Cap 500 mg = 1 cap(s), Oral, Daily, Prophylaxis Start Date: 01/13/21 Status: Ordered hydroCHLOROthiazide 12.5 mg / lisinopril 10 mg oral tablet (2 sources) Thiazide Diuretic, Angiotensin Converting Enzyme Inhibitor take 1 tablet by mouth in the morning lisinopril-hydroCHLOR Othiazide 10-12.5 MG tablet Take 1 tablet by mouth in the morning. 0 Active hydroxychloroquine sulfate 200 mg oral tablet (9 sources) Antimalarial, Antirheumatic Agent Start: 03-06-2024 take 1 tablet by mouth twice daily hydroxychloroquine 200 mg Tab See Instructions, TAKE ONE TABLET BY MOUTH TWICE A DAY, # 180 tab(s), Refills(s) 1, Pharmacy: [facility] 160, cm, 02/29/24 9:24:00 EST, Height/Length Dosing, 92.1, kg, 02/29/24 9:24:00 EST, Weight Dosing Start Date: 03/06/24 Status: Ordered Start: 10-04-2023 take 1 tablet by mariluz th twice daily hydroxychloroquine 200 mg Tab 200 mg = 1 tab(s), Oral, BID, # 180 tab(s), Refills(s) 1, Pharmacy: [facility] 160, cm, 08/31/23 9:10:00 EDT, Height/Length Dosing, 88.4, kg, 08/31/23 9:10:00 EDT, Weight Dosing Start Date: 10/04/23 Status: Ordered Start: 01-13-2021 take 1 tablet by mariluz th twice daily hydroxychloroquine 200 mg Tab 200 mg = 1 tab(s), Oral, BID, # 180 tab(s), Refills(s) 1, Pharmacy: [facility], 160, cm, 03/01/23 8:13:00 EST, Height/Length Dosing, 92.1, kg, 03/01/23 8:13:00 EST, Weight Dosing Start Date: 03/08/23 Status: Ordered 3 ml insulin glargine 100 unt/ml pen injector (9 sources) Insulin Analog Start: 01-17-2024 Lantus Solosta r Pen 100 units/mL subcutaneous solution 20 unit(s), SubCutaneous, Daily, # 30 mL, Refills(s) 4, Pharmacy: [facility], 160, cm, 12/16/23 13:12:00 EDT, Height/Length Dosing, 89.4, kg, 12/16/23 13:12:00 EDT, Weight Dosing Start Date: 01/17/24 Status: Ordered Start: 01-13-2021 Lantus Solosta r Pen 100 units/mL subcutaneous solution 20 unit(s), SubCutaneous, Daily, Refills(s) 0, Blood glucose Start Date: 01/13/21 Status: Ordered Start: 01-13-2021 Lantus Solosta r Pen 100 units/mL subcutaneous solution 30 unit(s), SubCutaneous, Daily, Refills(s) 0, Blood glucose Start Date: 01/13/21 Status: Ordered inject 10 [IU] by gonzalez bcutaneous injection twice daily Lantus SoloStar 100 UNIT/ML Subcutaneous Solution Pen-injector 10 units BID Quantity: 0 Refills: 0 Ordered: 21-Jul-2017 DO Active 3 ml insulin lispro 100 unt/ml pen injector (6 sources) Insulin Analog Start: 01-13-2021 Insulin Lispro KwikPen 100 units/mL injectable solution SubCutaneous, BIDAC, Refills(s) 0, Blood glucose Start Date: 01/13/21 Status: Ordered HumaLOG KwikPen 100 UNIT/ML Subcutaneous Solution Pen-injector INJECT SUBCUTANEOUSLY DIRECTED. Quantity: 0 Refills: 0 Ordered: 21-Jul-2017 DO Active insulin lispro (HumaLOG) 100 UNIT/ML injection (2 sources) insulin lispro (HumaLOG) 100 UNIT/ML injection Inject under the skin 3 (three) times a day with meals. 0 Active Insulin Lispro KwikPen 100 units/mL injectable solution (1 source) Start: 01-13-2021 Insulin Lispro KwikPen 100 units/mL injectable solution SubCutaneous, BIDAC, Refills(s) 0, Blood glucose Start Date: 01/13/21 Status: Ordered lisinopril 5 mg oral tablet (7 sources) Angiotensin Converting Enzyme Inhibitor Start: 10-18-2023 take 2.5 mg by mouth once daily lisinopril 5 mg Tab 2.5 mg = 0.5 tab(s), Oral, Daily, # 90 tab(s), Refills(s) 3, [facility]acy: [facility], 160, cm, 08/31/23 9:10:00 EDT, Height/Length Dosing, 88.4, kg, 08/31/23 9:10:00 EDT, Weight Dosing Start Date: 10/18/23 Status: Ordered Start: 04-27-2023 lisinopril 5 M G tablet Start: 01-25-2023 take 2.5 mg by mouth once caity y lisinopril 5 mg Tab 2.5 mg = 0.5 tab(s), Oral, Daily, # 90 tab(s), Refills(s) 3, Pharmacy: [facility], 160, cm, 12/08/22 10:18:00 EDT, Height/Length Dosing, 90.9, kg, 12/08/22 10:18:00 EDT, Weight Dosing Start Date: 01/25/23 Status: Ordered Start: 01-13-2021 take 2.5 mg by mouth once caity y lisinopril 5 mg Tab 2.5 mg = 0.5 tab(s), Oral, Daily, Refills(s) 0, High blood pressure Start Date: 01/13/21 Status: Ordered take 1 tablet by mariluz th once daily lisinopril 2.5 MG tablet Take 1 tablet every day by oral route for 90 days. 0 Active metFORMIN hydrochloride 850 mg oral tablet (9 sources) Biguanide Start: 08-31-2023 take 1 tablet by mouth once daily metformin 850 mg Tab 850 mg = 1 tab(s), Oral, Daily, Refills(s) 0 Start Date: 08/31/23 Status: Ordered Start: 01-13-2021 take 1 tablet by mariluz th twice daily metformin 850 mg oral tablet 850 mg = 1 tab(s), Oral, BID, Refills(s) 0, Blood glucose Start Date: 01/13/21 Status: Ordered montelukast 10 mg oral tablet (3 sources) Leukotriene Receptor Antagonist Start: 04-24-2024 take 1 tablet by mouth once daily in the evening montelukast 10 mg Tab See Instructions, TAKE ONE TABLET BY MOUTH EVERY EVENING, # 90 tab(s), Refills(s) 1, Pharmacy: [facility]/pharmacy #[id number], 160, cm, 02/29/24 9:24:00 EST, Height/Length Dosing, 92.1, kg, 02/29/24 9:24:00 EST, Weight Dosing Start Date: 04/24/24 Status: Ordered Start: 12-14-2023 take 1 tablet by mariluz th once daily in the evening montelukast 10 mg Tab See Instructions, TAKE ONE TABLET BY MOUTH EVERY EVENING, # 90 tab(s), Refills(s) 1, Pharmacy: [facility], 160, cm, 08/31/23 9:10:00 EDT, Height/Length Dosing, 88.4, kg, 08/31/23 9:10:00 EDT, Weight Dosing Start Date: 12/14/23 Status: Ordered Start: 07-26-2023 take 1 tablet by mariluz th once daily in the evening montelukast 10 mg Tab 10 mg = 1 tab(s), Oral, qPM, # 90 tab(s), Refills(s) 1, Pharmacy: [facility], 160, cm, 07/09/23 10:50:00 EDT, Height/Length Dosing, 87.6, kg, 07/09/23 10:50:00 EDT, Weight Dosing Start Date: 07/26/23 Status: Ordered Multiple Vitamin (multivitamin) capsule (2 sources) take 1 capsule by mouth in the morning Multiple Vitamin (multivitamin) capsule Take 1 capsule by mouth in the morning. 0 Active nitrofurantoin, macrocrystals 25 mg / nitrofurantoin, monohydrate 75 mg oral capsule (1 source) Nitrofuran Antibacterial Start: 023 End: 023 take 1 capsule by mouth twice daily Macrobid 100 mg Cap 100 mg = 1 cap(s), Oral, BID, X 7 day(s), # 14 cap(s), Refills(s) 0, Pharmacy: [facility]/pharmacy #[id number], 162, cm, 06/30/22 15:22:00 EDT, Height/Length Dosing, 93, kg, 06/30/22 15:22:00 EDT, Weight Dosing Start Date: 06/30/22 Stop Date: 07/07/22 Status: Ordered Ozempic, 1 MG/DOSE, 4 MG/3ML solution pen-injector (2 sources) Ozempic, 1 MG/DO SE, 4 MG/3ML solution pen-injector as directed Subcutaneous 0 Active pantoprazole 40 mg delayed release oral tablet (9 sources) Proton Pump Inhibitor Start: 025 take 1 tablet by mouth once daily Pantoprazole [address] Tab 40 mg = 1 tab(s), Oral, Daily, # 90 tab(s), Refills(s) 3, Pharmacy: [facility]/pharmacy #[id number], 160, cm, 02/29/24 9:24:00 EST, Height/Length Dosing, 92.1, kg, 02/29/24 9:24:00 EST, Weight Dosing Start Date: 04/24/24 Status: Ordered Start: 01-13-2021 take 1 tablet by mariluz th once daily Pantoprazole [address] Tab 40 mg = 1 tab(s), Oral, Daily, # 90 tab(s), Refills(s) 3, Pharmacy: [facility], 160, cm, 12/08/22 10:18:00 EDT, Height/Length Dosing, 90.9, kg, 12/08/22 10:18:00 EDT, Weight Dosing Start Date: 01/25/23 Status: Ordered rosuvastatin calcium 5 mg oral tablet (6 sources) HMG-CoA Reductase Inhibitor Start: 04-24-2024 take 1 tablet by mouth once daily at bedtime rosuvastatin 5 mg Tab 5 mg = 1 tab(s), Oral, Once a day (at bedtime), # 90 tab(s), Refills(s) 3, Pharmacy: [facility]/pharmacy #[id number], 160, cm, 02/29/24 9:24:00 EST, Height/Length Dosing, 92.1, kg, 02/29/24 9:24:00 EST, Weight Dosing Start Date: 04/24/24 Status: Ordered Start: 01-13-2021 take 1 tablet by mariluz th once daily at bedtime rosuvastatin 5 mg Tab 5 mg = 1 tab(s), Oral, Once a day (at bedtime), # 90 tab(s), Refills(s) 3, Pharmacy: [facility], 160, cm, 12/08/22 10:18:00 EDT, Height/Length Dosing, 90.9, kg, 12/08/22 10:18:00 EDT, Weight Dosing Start Date: 01/25/23 Status: Ordered 1 mg dose 1.5 ml semaglutide 1.34 mg/ml pen injector (4 sources) Start: 08-04-2022 End: 05-12-2023 inject 1 mg by subcutaneous injection every week Ozempic 2 mg/1.5 mL (1 mg dose) subcutaneous solution 1 mg, SubCutaneous, qWeek, 9 mL, Refill(s) 3, [facility], 160, cm, 12/08/22 10:18:00 EDT, Height/Length Dosing, 90.9, kg, 12/08/22 10:18:00 EDT, Weight Dosing Start Date: 01/25/23 Status: Ordered sertraline 50 mg oral tablet (9 sources) Serotonin Reuptake Inhibitor Start: 01-13-2021 take 1 tablet by mouth once daily sertraline 50 mg Tab 50 mg = 1 tab(s), Oral, Daily, # 90 tab(s), Refills(s) 3, Pharmacy: [facility], 160, cm, 12/08/22 10:18:00 EDT, Height/Length Dosing, 90.9, kg, 12/08/22 10:18:00 EDT, Weight Dosing Start Date: 01/25/23 Status: Ordered Sertraline HCl - 50 MG Oral Tablet Quantity: 0 Refills: 0 Ordered: 12-Apr-2018 DO Active Reclast (2 sources) Bisphosphonate Start: 12-16-2023 Reclast See In structions, Refill(s) 0, gets IV once a year Start Date: 12/16/23 Status: Ordered Start: 12-16-2023 Reclast mg, IV , Once, Refill(s) 0, every 6 month Start Date: 12/16/23 Status: Ordered Completed/Discontinued Medications Medication Drug Class(es) Dates Sig (Normalized) Sig (Original) Calcium Carbonate (3 sources) Tums E-X 750 LÁZARO W TAKE DIRECTED. Quantity: 0 Refills: 0 Ordered: 21-Jul-2017 DO Active 60 actuat exenatide 0.005 mg/actuat pen injector (2 sources) GLP-1 Receptor Agonist End: 05-12-2023 exenatide (Byetta) 5 MCG/0.02ML injection Inject 1 each under the skin in the morning. 0 05/12/2023 Discontinued (Therapy completed) insulin glargine-yfgn (Semglee-yfgn) 100 UNIT/ML pen (2 sources) Start: 01-20-2022 End: 05-12-2023 insulin glargine-yfgn (Semglee-yfgn) 100 UNIT/ML pen Inject under the skin Daily. 0 01/20/2022 05/12/2023 Discontinued (Therapy completed) Start: 01-20-2022 insulin glargi ne-yfgn (Semglee-yfgn) 100 UNIT/ML pen Inject under the skin Daily. 0 01/20/2022 Active magnesium chloride 535 mg delayed release oral tablet (2 sources) Start: 04-06-2023 End: 05-12-2023 Mag64 64 MG EC tablet TAKE 1 TAB 3 TIMES A DAY X 5 DAYS BEFORE & 5 DAYS AFTER RECLAST (STOP IF GI UPSET/DIARRHEA, CALL DR) 0 04/06/2023 05/12/2023 Discontinued (Therapy completed) metoprolol tartrate 25 mg oral tablet (3 [...] Documented Da te Episodic/Chronic Chronic kidney disease (4 sources) Chronic kidney disease stage 4 06-30-2022 Chronic Coronary atherosclerosis and other heart disease (3 sources) Coronary arteriosclerosis 03-01-2023 Chronic Diabetes mellitus with complications (7 sources) Type 2 diabetes mellitus with diabetic neuropathy, unspecified; Translations: [Neuropathy due to diabetes mellitus] Onset: Chronic Diabetes mellitus without complication (7 sources) Diabetes mellitus; Translations: [Type 2 diabetes mellitus] 01-13-2021 Chronic Disorders of lipid metabolism (7 sources) Hyperlipidemia; Translations: [Dyslipidemia] Onset: 9 06-30-2022 Chronic E Codes: Fall (3 sources) Fall 04-13-2023 Esophageal disorders (3 sources) Gastroesophageal reflux disease Onset: 7 07-09-2023 Chronic Essential hypertension (4 sources) Hypertensive disorder 01-13-2021 Chronic Fracture of upper limb (1 source) Closed fracture dislocation shoulder joint; Translations: [Fracture of right shoulder girdle, part unspecified, subsequent encounter for fracture with routine healing] 05-12-2023 Episodic Immunity disorders (3 sources) 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 Occlusion or stenosis of precerebral arteries (4 sources) Left carotid artery occlusion 06-30-2022 Chronic Osteoarthritis (3 sources) Osteoarthritis; Translations: [Osteoarthrosis, unspecified whether generalized or localized, site unspecified] Chronic Osteoporosis (1 source) Age-related osteoporosis without current pathological fracture; Translations: [Age-related osteoporosis without current pathological fracture] Onset: 5 Chronic Other circulatory disease (4 sources) Raynaud's phenomenon 06-30-2022 Chronic Other connective tissue disease (2 sources) Presence of left artificial knee joint; Translations: [Presence of left artificial knee joint] Onset: 8 Chronic Other connective tissue disease (3 sources) H/O: musculoskeletal disease; Translations: [Personal history of other musculoskeletal disorders] Episodic Other connective tissue disease (1 source) Repeated falls; Translations: [REPEATED FALLS] Onset: 3 Episodic Other connective tissue disease (4 sources) History of osteoporosis 01-13-2021 Episodic Other eye disorders (4 sources) Ptosis of eyelid 01-13-2021 Episodic Other gastrointestinal [...] nonalcoholic liver disease] Chronic Other liver diseases (4 sources) Steatosis of liver 06-30-2022 Chronic Other liver [...] Translations: [UNS ABNORMALITIES GAIT AND MOBILITY] Onset: Episodic Other non-traumatic joint disorders (3 sources) Polyarthropathy; Translations: [Unspecified polyarthropathy or polyarthritis, site unspecified] Chronic Other nutritional; endocrine; and metabolic disorders (3 sources) Morbid obesity 03-01-2023 Chronic Comment on above: added per 02/24/2023 query response. Other nutritional; endocrine; and metabolic disorders (2 sources) Body mass index 30+ - obesity 12-16-2023 Chronic Other nutritional; endocrine; and metabolic disorders [...] neoplasms of colon] Episodic Residual codes; unclassified (6 sources) Obstructive sleep apnea syndrome 06-30-2022 Chronic Rheumatoid arthritis and related disease (7 sources) Rheumatoid arthritis 01-13-2021 Chronic Screening and history of mental health and substance abuse codes (3 sources) H/O: depression; Translations: [Personal history of other mental disorders] Episodic Spondylosis; intervertebral disc disorders; other back problems (3 sources) Disorder of sacrum; Translations: [Disorders of sacrum] Episodic Unclassified (3 sources) Long-term current use of insulin 02-24-2023 Comment on above: Current Medication L ist includes insulin glargine and insulin lispro. added per OP CDI policy. Past or Other Problems Problem Classification Problem Date Documented Date Episodic/Chronic Deficiency and other anemia (4 sources) Anemia Onset: 03-30-2019 06-30-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 Other connective tissue disease (4 sources) Other muscle spasm; Translations: [OTHER MUSCLE SPASM] Onset: 11-14-2021 Episodic Other diseases of kidney and ureters (3 sources) Renal insufficiency Onset: 11-02-2018 07-09-2023 Episodic Other liver diseases (3 sources) Elevated liver enzymes level Onset: 11-02-2018 07-09-2023 Episodic Other lower respiratory disease (3 sources) Dyspnea Onset: 03-30-2019 07-09-2023 Episodic Results Test Name Value Interpretation Reference Range [facility] Basic Metabolic Panelon 04-06 Anion gap [Moles/Vol] 12.2 mmol/L Normal 6.0-15.0 [facility] Comment on above: Performed By: #### P HOS, BMP, MG #### [facility] [address] [id number] [place] Calcium [Mass/Vol] 9.5 mg/dL Normal 8.6-10.3 [facility] Comment on above: Performed By: #### P HOS, BMP, MG #### [facility] [address] [id number] [place] Chloride [Moles/Vol] 105 mmol/L Normal 98-107 [facility] Comment on above: Performed By: #### P HOS, BMP, MG #### [facility] [address] [id number] [place] CO2 [Moles/Vol] 29.0 mmol/L Normal 21.0-31.0 [facility] Comment on above: Performed By: #### P HOS, BMP, MG #### [facility] [address] [id number] [place] Creatinine [Mass/Vol] 0.95 mg/dL Normal 0.60-1.20 [facility] Comment on above: Performed By: #### P HOS, BMP, MG #### [facility] [address] [id number] [place] GFR/1.73 sq M.predicted MDRD (S/P/Bld) [Vol rate/Area] mL/min/{1.73_m2} Normal [facility] Comment on above: Performed By: #### P HOS, BMP, MG #### [facility] [address] [id number] [place] Glucose [Mass/Vol] 141 mg/dL High 70-100 [facility] Comment on above: Result Comment: [place] Glucose Reference Range is dependent on time and content of last meal. Glucose of more than 200 mg/dL in a nonstressed, ambulatory subject supports the diagnosis of Diabetes Mellitus. ADA recommended reference range Performed By: #### P HOS, BMP, MG #### [facility] [address] Potassium [Moles/Vol] 4.2 mmol/L Normal 3.5-5.1 [facility] Comment on above: Performed By: #### P HOS, BMP, MG #### [facility] [address] Sodium [Moles/Vol] 142 mmol/L Normal 136-145 [facility] Comment on above: Performed By: #### P HOS, BMP, MG #### [facility] [address] Urea nitrogen [Mass/Vol] 20 mg/dL Normal 7-25 [facility] Comment on above: Performed By: #### P HOS, BMP, MG #### [facility] [address] Calcium [Mass/volume] in Ser um or PlasmaOrdered By: Fransisco Benavides on 04-25-2024 Calcium [Mass/Vol] Calcium [Mass/volume] in Serum or Plasma 8.6-10.3 [facility] Carbon dioxide, total [Moles /volume] in Serum or PlasmaOrdered By: Fransisco Benavides on 04-25-2024 CO2 [Moles/Vol] Carbon dioxide, total [Moles/volume] in Serum or Plasma 21.0-31.0 [facility] Chloride [Moles/volume] in S melvin or PlasmaOrdered By: Fransisco Benavides on 04-25-2024 Chloride [Moles/Vol] Chloride [Moles/volume] in Serum or Plasma 98-107 [facility] Creatinine [Mass/volume] in Serum or PlasmaOrdered By: Fransisco Benavides on 04-25-2024 Creatinine [Mass/Vol] Creatinine [Mass/volume] in Serum or Plasma 0.60-1.20 [facility] Glucose [Mass/volume] in Ser um or PlasmaOrdered By: Fransisco Benavides on 04-25-2024 Glucose [Mass/Vol] Glucose [Mass/volume] in Serum or Plasma High 70-100 [facility] Comment on above: ADA recommended refe rence rangeRandom Glucose Reference Range is dependent on time and content of last meal. Glucose of more than 200 mg/dL in a nonstressed, ambulatory subject supports the diagnosis of Diabetes Mellitus. Magnesiumon 04-25-2024 Magnesium [Mass/Vol] 1.6 mg/dL Low 1.9-2.7 [facility] Comment on above: Result Comment: PERF ORMED BY: [facility] [address] [place] [address] PATHOLOGIST KEY ACCOUNT COORDINATOR CHACORTA WALKER M.D. Performed By: #### P HOS, BMP, MG #### [facility] [address] [place] [address] Magnesium [Mass/volume] in S melvin or PlasmaOrdered By: Fransisco Benavides on 04-25-2024 Magnesium [Mass/Vol] Magnesium [Mass/volume] in Serum or Plasma Low 1.9-2.7 [facility] No Panel InformationOrdered By: Fransisco Benavides on 04-25-2024 Estimated GFR (CKD-EPI) > 60.0 mL/Min [facility] Creatinine Clearance (Chem N/A [facility] Phosphate [Mass/volume] in S melvin or PlasmaOrdered By: Fransisco Benavides on 04-25-2024 Phosphate [Mass/Vol] Phosphate [Mass/volume] in Serum or Plasma 2.5-4.5 [facility] Phosphoruson 04-25-2024 Phosphate [Mass/Vol] 3.1 mg/dL Normal 2.5-4.5 [facility] Comment on above: Performed By: #### P HOS, BMP, MG #### [facility] [address] [place] [address] [place] Potassium [Moles/volume] in Serum or PlasmaOrdered By: Fransisco Benavides on 04-25-2024 Potassium [Moles/Vol] Potassium [Moles/volume] in Serum or Plasma 3.5-5.1 [facility] Serum or plasma anion gap de terminationOrdered By: Fransisco Benavides on 04-25-2024 Anion gap [Moles/Vol] Serum or plasma anion gap determination 6.0-15.0 [facility] Sodium [Moles/volume] in Ser um or PlasmaOrdered By: Fransisco Benavides on 04-25-2024 Sodium [Moles/Vol] Sodium [Moles/volume] in Serum or Plasma 136-145 [facility] Urea nitrogen [Mass/volume] in Serum or PlasmaOrdered By: Fransisco Benavides on 04-25-2024 Urea nitrogen [Mass/Vol] Urea nitrogen [Mass/volume] in Serum or Plasma 7-25 [facility] Ambulatory Visit Summaryon 1 04-30-2023 Ambulatory Visit Summary Ambulatory Visit Summary LJ DOLL :1955 Visit Date:02/29/2024 Ambulatory Visit Instructions Your Diagnosis Chronic kidney disease (CKD), stage IV (severe), Chronic kidney disease, stage 4 (severe) DM type 2 causing CKD stage 4 RA (rheumatoid arthritis) BMI 35.0-35.9,adult Exogenous obesity Nonsmoker Your Care Team Attending Physician - Arley Keller MD Primary Care Physician - Arley Keller MD [facility] Is [facility] ([facility] supplies - Mask, tubing, connectors) amitriptyline (amitriptyline 25 mg Tab) aspirin calcium-vitamin D carvedilol (carvedilol 3.125 mg Tab) etanercept (Enbrel) furosemide (furosemide 20 mg Tab) gabapentin (gabapentin 100 mg Cap) hydroxychloroquine (hydroxychloroquine 200 mg Tab) insulin glargine (Lantus Solostar Pen 100 units/mL subcutaneous solution) insulin lispro (Insulin Lispro KwikPen 100 units/mL injectable solution) lisinopril (lisinopril 5 mg Tab) metformin (metformin 850 mg Tab) montelukast (montelukast 10 mg Tab) multivitamin with minerals (Celebrate Multivitamin oral capsule) pantoprazole (Pantoprazole [address] Tab) rosuvastatin (rosuvastatin 5 mg Tab) semaglutide (Ozempic 2 mg/1.5 mL (1 mg dose) subcutaneous solution) sertraline (sertraline 50 mg Tab) zoledronic acid (Reclast) Procedures Performed Blepharoplasty of upper eyelid (01/20/2021), Appendectomy, Arthroplasty of the hip, Arthroplasty of the knee, Carpal tunnel release, Excision of ganglion cyst, History of placement of stent for coronary artery disease, Release of trigger finger, Total hysterectomy. Discharge Vitals Temperature (Temporal Artery) 36.2 ???C Heart Rate (Peripheral) 64 Respiratory Rate 16 Blood Pressure 120/82 Height 160 cm Height 63 in Weight 92.1 kg Weight 203.046 lb BMI 35.98 What to do next Scheduled Follow-Up Appointments Wednesday 9:15 AM EST With: Pablo SIMENTAL, Randolph De Souza Where: [facility] Wednesday 9:15 AM EDT With: Krishna SIMENTAL, Arley Heredia Where: [address] [id number]- Wednesday 1:00 PM EDT With: Where: [address] [address]- Medications What How Much When Why Instructions Unchanged amitriptyline (amitriptyline 25 mg Tab) See instructions TAKE 1 TABLET BY MOUTH AT BEDTIME Unchanged aspirin 81 Milligram Every day Unchanged calcium-vitamin D 1 TAB By Mouth Every day Unchanged carvedilol (carvedilol 3.125 mg Tab) 1 Tablets By Mouth 2 times a day Unchanged etanercept (Enbrel) 50 Milligram Subcutaneous Every week Unchanged furosemide (furosemide 20 mg Tab) 1 Tablets By Mouth Every day Unchanged gabapentin (gabapentin 100 mg Cap) See instructions TAKE TWO CAPSULES BY MOUTH AT BEDTIME Unchanged hydroxychloroquine (hydroxychloroquine 200 mg Tab) 1 Tablets By Mouth 2 times a day Unchanged insulin glargine (Lantus Solostar Pen 100 units/ mL subcutaneous solution) 20 Units Subcutaneous Every day Unchanged insulin lispro (Insulin Lispro KwikPen 100 units/ mL injectable solution) Subcutaneous Twice a day (before meals) Unchanged lisinopril (lisinopril 5 mg Tab) 0.5 Tablets By Mouth Every day Unchanged metformin (metformin 850 mg Tab) 1 Tablets By Mouth Every day Unchanged Misc Prescription (CPAP supplies - Mask, tubing, connectors) See instructions JESSICA on CPAP CPAP supplies - Mask, tubing, connectors Unchanged montelukast (montelukast 10 mg Tab) See instructions TAKE ONE TABLET BY MOUTH EVERY EVENING Unchanged multivitamin with minerals (Celebrate Multivitamin oral [...] 1 Tablets By Mouth Every day Unchanged zoledronic acid (Reclast) See instructions gets IV once a year Allergies Antihistamine (VERY FOGGY BRAIN) Daypro (INEFFECTIVE) Humira (Hives) statins (MUSCLE CRAMPS) Problems Ongoing - Any problem that you are currently receiving treatment for. 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 Normal [facility] Family Medicine Office/Clini c Noteon 02-29-2024 Family Medicine Office/Clinic Note Family Medicine Office/Clinic Note HPI Staff Lj is a 68 year old female presenting for 6 month follow up DM, CKD, RA Do you have any of the following symptoms? Foot Exam: Apr 2023 Eye Exam: Jan 2024 Last A1C: Hgb A1C %: 6.8 % High (08/31/23 11:08:00) Statin: rosuvastatin 5mg questions/concerns: wants to discuss her left leg has trouble with swelling if stands > 1/2 hour ( has artificial knee) and discuss new cpap machine Has had a gravely voice for a week but not sick, feels fine History of Present Illness The patient is a 68-year-old female presenting with swelling in the left knee. The patient has a full artificial knee and hip on the left side, with the initial knee replacement occurring in 2003. The current swelling is of recent onset. She reports increased swelling when she stands for over an hour, which she suspects may be related to venous insufficiency. The patient remains unsure about the specific cause. Notably, she had a previous infection after her first knee replacement surgery which took 21 months to resolve before a new knee was implanted. The swelling is described as recent, not associated with any trauma or specific injury, and does not give the sensation of the knee wearing out. She has not tried wearing a knee brace for compression to reduce the swelling. The patient has a history of type 2 diabetes mellitus associated with chronic kidney disease, stage IV, and manages her diabetes with regular blood sugar monitoring. Her self-reported glucose readings remain stable at 98%. She has a body mass index (BMI) of 35.0-35.9 and acknowledges exogenous obesity. She denies any recent issues related to her nonsmoker status and reports maintaining her rheumatoid arthritis under control. The patient has a history of sleep apnea, for which she underwent a sleep study at [facility] overseen by Dr. Newsome. The exact date of the study is unspecified, but it has been a considerable time since the test. She expresses willingness to retake the sleep study if necessary after changes to her insurance coverage are finalized. Review of Systems PHQ Score Initial Depression Screen Score: 0 SCORE - Respiratory: Denies shortness of breath. - Gastrointestinal: Reports acid reflux controlled by avoidance of spicy foods. - Musculoskeletal: Reports recent swelling in the left knee with prior knee replacement history. - Ear, Nose, and Throat: Reports persistent gravely voice for one week, likely related to throat inflammation or postnasal drip at night. Physical Exam Vitals & Measurements T: 36.2 ???C(Temporal Artery) HR: 64(Peripheral) RR: 16 BP: 120/82 SpO2: 97% HT: 63 in HT: 160 cm WT: 92.1 kg WT: 203.046 lb BMI: 35.98 General: alert, no acute distress ENMT: oral mucosa moist, gravelly voice noted, possible laryngitis Cardiovascular: Regular rate and rhythm, normal peripheral perfusion Respiratory: Lungs clear to auscultation, respirations non labored Extremities: no deformity, no trauma, swelling noted in left knee, possible venous insufficiency Neurological: oriented x 4, level of consciousness appropriate for age, CN II-XII intact, motor strength equal & normal bilaterally, speech normal Abdomen: Soft, Non-tender, Non-distended, + Bowel sounds Assessment/Plan 1. Chronic kidney disease (CKD), stage IV (severe) (N18.4: Chronic kidney disease, stage 4 (severe)) Maintain current management strategy. Encourage routine monitoring of renal function. Ordered: A1c POC 24840 Body Mass Index (BMI) documented 3008F Current tobacco non-user 1036F Depression Screening Negative 3352F Influenza immunization administered or previously received 4274F Most recent diastolic blood pressure 80-89 mm Hg 3079F Patient screen for fall risk: no falls in last year or 1 fall with no injury in last year 1101F Systolic BP <130 mm Hg (Most Recent) 3074F 2. DM type 2 causing CKD stage 4 (E11.22: Type 2 diabetes mellitus with diabetic chronic kidney disease) Review quarterly or more frequently if symptoms change. Monitor hemoglobin A1c routinely to ensure diabetic control. Ordered: A1c POC 85739 Body Mass Index (BMI) documented 3008F Current tobacco non-user 1036F Depression Screening Negative 3352F Influenza immunization administered or previously received 4274F Most recent diastolic blood pressure 80-89 mm Hg 3079F Patient screen for fall risk: no falls in last year or 1 fall with no injury in last year 1101F Systolic BP <130 mm Hg (Most Recent) 3074F 3. RA (rheumatoid arthritis) (M06.9: Rheumatoid arthritis, unspecified) Continue current treatment regimen and monitor disease activity and response to treatment. Ordered: A1c POC 22684 Body Mass Index (BMI) documented 3008F Current tobacco non-user 1036F Depression Screening Negative 3352F Influenza immunization administered or previously received 4274F Most recent diastolic blood pressure 80-89 mm Hg 3079F Patient screen for fall risk: no falls in last y (more content not included)... Normal [facility] Comment on above: Result Comment: Elec tronically Signed By: Krishna SIMENTAL, Arley Martinez.deric\Date and Time Signed: 02/29/24 10:44 EST .Interpretation:on 4 HCV Ab IA Ql Comment Invalid Interpretation Code [facility] Comment on above: Result Comment: Not infected with HCV unless early or acute infection is suspected (which may be delayed in an immunocompromised individual), or other evidence exists to indicate HCV infection. Performed at: [facility] [address] [place], [place] [id number] PhD Micah Wilson Performed By: #### 2 [id number] #### [facility] [address] [place] [address] HCV Antibody RFX to [facility] [place] 12-23-2023 HCV IgG IA Ql Non-Reactive Invalid Interpretation Code Non Reactive [facility] Comment on above: Result Comment: Perf ormed at: [facility] [address] [place], [place] [id number] PhD Micah Wilson Performed By: #### 2 [id number] #### [facility] [address] [place] [address] Ambulatory Visit Summaryon 0 12-16-2023 Ambulatory Visit Summary Ambulatory Visit Summary LJ DOLL :1955 Visit Date:12/16/2023 Ambulatory Visit Instructions Your Diagnosis Encounter for subsequent annual wellness visit in Medicare patient DM type 2 causing CKD stage 4 Chronic kidney disease (CKD), stage IV (severe) Diabetic neuropathy Long-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 Immunodeficiency due to drugs Major depressive disorder in remission RA (rheumatoid arthritis) Encounter for hepatitis C screening test for low risk patient Encounter for screening mammogram for breast cancer Hyperlipidemia Immunization declined Obesity due to excess calories Your Care Team Attending Physician - Micaela Beltrán Primary Care Physician - Arley Keller MD This Is Your Medications List Misc Prescription (CPAP supplies - Mask, tubing, connectors) amitriptyline (amitriptyline 25 mg Tab) aspirin calcium-vitamin D carvedilol (carvedilol 3.125 mg Tab) etanercept (Enbrel) furosemide (furosemide 20 mg Tab) gabapentin (gabapentin 100 mg Cap) hydroxychloroquine (hydroxychloroquine 200 mg Tab) insulin glargine (Lantus Solostar Pen 100 units/mL subcutaneous solution) insulin lispro (Insulin Lispro KwikPen 100 units/mL injectable solution) lisinopril (lisinopril 5 mg Tab) metformin (metformin 850 mg Tab) montelukast (montelukast 10 mg Tab) multivitamin with minerals (Celebrate Multivitamin oral capsule) pantoprazole (Pantoprazole [address] Tab) rosuvastatin (rosuvastatin 5 mg Tab) semaglutide (Ozempic 2 mg/1.5 mL (1 mg dose) subcutaneous solution) sertraline (sertraline 50 mg Tab) zoledronic acid (Reclast) Procedures Performed Blepharoplasty of upper eyelid (01/20/2021), Appendectomy, Arthroplasty of the hip, Arthroplasty of the knee, Carpal tunnel release, Excision of ganglion cyst, History of placement of stent for coronary artery disease, Release of trigger finger, Total hysterectomy. Discharge Vitals Heart Rate (Peripheral) 70 Blood Pressure 122/60 Height 160 cm Height 63 in Weight 89.4 kg Weight 196.68 lb BMI 34.92 What to do next Scheduled Follow-Up Appointments Wednesday 11:20 AM EDT With: Where: [address] [id number]- Wednesday 9:15 AM EST With: Krishna SIMENTAL, Arley Heredia Where: [address] [id number]- Wednesday 1:00 PM EDT With: Where: [address] [address]- You Need to Complete the Following Beta hCG Qual, Blood, Routine collect, 12/16/23, Order for future visit, Lab Collect, Encounter for hepatitis C screening test for low risk patient, Not Required, Print Label By Order Location [place] Mamm Screen w/CAD if perf and 3D Jt, 12/16/23, Routine, Order for Future Visit, Transport Mode: Ambulatory, Reason: Screening, No, Encounter for screening mammogram for breast cancer, pp_set_radiology_sub specialty, Required & Missing, [facility] Medications What How Much When Why Instructions Unchanged amitriptyline (amitriptyline 25 mg Tab) See instructions TAKE 1 TABLET BY MOUTH AT BEDTIME Unchanged aspirin 81 Milligram Every day Unchanged calcium-vitamin D 1 TAB By Mouth Every day Unchanged carvedilol (carvedilol 3.125 mg Tab) 1 Tablets By Mouth 2 times a day Unchanged etanercept (Enbrel) 50 Milligram Subcutaneous Every week Unchanged furosemide (furosemide 20 mg Tab) 1 Tablets By Mouth Every day Unchanged gabapentin (gabapentin 100 mg Cap) See instructions TAKE TWO CAPSULES BY MOUTH AT BEDTIME Unchanged hydroxychloroquine (hydroxychloroquine 200 mg Tab) 1 Tablets By Mouth 2 times a day Unchanged insulin glargine (Lantus Solostar Pen 100 units/ mL subcutaneous solution) 20 Units Subcutaneous Every day Unchanged insulin lispro (Insulin Lispro KwikPen 100 units/ mL injectable solution) Subcutaneous Twice a day (before meals) Unchanged lisinopril (lisinopril 5 mg Tab) 0.5 Tablets By Mouth Every day Unchanged metformin (metformin 850 mg Tab) 1 Tablets By Mouth Every day Unchanged Misc Prescription (CPAP supplies - Mask, tubing, connectors) See instructions JESSICA on CPAP CPAP supplies - Mask, tubing, connectors Unchanged montelukast (montelukast 10 mg Tab) See instructions TAKE ONE TABLET BY MOUTH EVERY EVENING Unchanged multivitamin with minerals (Celebrate Multivitamin oral [...] 1 Tablets By Mouth Every day Unchanged zoledronic acid (Reclast) Int (more content not included)... Normal [facility] Family Medicine Office/Clini c Noteon 12-16-2023 Family Medicine Office/Clinic Note Family Medicine Office/Clinic Note Chief Complaint Subsequent Medicare Wellness Review of Systems PHQ Score Initial Depression Screen Score: 0 SCORE Physical Exam Vitals & Measurements HR: 70(Peripheral) BP: 122/60 SpO2: 94% HT: 160 cm HT: 63 in WT: 89.4 kg WT: 196.68 lb BMI: 34.92 Procedure I was in the office and available for consultation and to provide direct supervision at the time of this visit. I have provided supervision of the care team and have reviewed this chart and office note and agree with the plan of care. Assessment/Plan 1. Encounter for subsequent annual wellness visit in Medicare patient (Z00.00: Encounter for general adult medical examination without abnormal findings) The patient was given a customized and personalized print out of all the current AHRQ USPSTF?s recommendations for preventative services and all current CDC recommended immunizations and relevant risk recommendations given. Reviewed Medicare Prevention Services checklist. CDC-Falls Prevention and home safety screening reviewed. Patient admits to 1 falls in last 12 months, voices no worry about falling. Exhibits no problems with sitting, standing or ambulation today in office. Patient admits using a cane occasionally when walking long distances. Patient aware with keeping walk way area free of clutter to prevent tripping and/or falling. [place] Advance Directives reviewed. Documents scanned into chart. Patient denies any problems with ADL?s and Instrumental ADL?s. Cognitive screening completed with memory and clock face drawing. No deficits noted. Patient recited 2/3 memory words. Immunization record reviewed, discussed Shingrix vaccine with educational handout and availability. Allergies and medications reviewed and up to date. No concerns with taking medication as prescribed. Reviewed OTC medications, medication list up to date. Blood tests were reviewed: Discussed what tests need to be updated. Labs were ordered, will have completed prior to next PCP visit. Patient will be notified of results. No concerns with bowel/ bladder. Colonoscopy last completed [address] Law. Patient will be due for a repeat in 2028. Reviewed pain symptoms : chronic joint pain, rates pain as a 4 out of 10, patient takes gabapentin as prescribed. Reviewed all outside providers that patient follows. Last visit summary notes available in chart and/or have been requested. Patient declines any signs or symptoms of depression at this time. 8 minutes spent with screening and documentation. PHQ2 screening score 0. Patient denies alcohol use. Follow up scheduled with PCP, 02/29/24 2. 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 Patient does monitors BS at home: DM stoplight handout reviewed with s/s to monitor for and report to PCP. Patient reports last A1C with Dr. Barker last week 6.7. Discussed ADA dietary recommendations with low carbs and reduce sugar intake. Patient encouraged to increase daily physical activity, adequate water intake and maintain a healthy weight. Pt follows up with Dr. Triana with yearly DM foot checks, last completed 09/17/2023. Reminded patient to perform at home foot checks to prevent future complications, wash with soap and water, apply lotion to bilateral feet and in-between toes to prevent dryness and/or cracking. Wear proper fitting shoes and loose fitting socks and/or hose. Follows up with yearly DM eye exams with Dr. Kaur, patient has next appointment with doctor that took over for Dr. Kaur in January. Last visit notes available being requested. Reviewed health kidney nutritional handout with importance [...] control with repeated blood work to be ordered as directed with PCP. Follows up with Nephrology as directed. 3. Chronic kidney disease (CKD), stage IV (severe) (N18.4: Chronic kidney disease, stage 4 (severe)) see #2 4. Diabetic neuropathy (E11.40: Type 2 diabetes mellitus with diabetic neuropathy, unspecified) Patient voices no complaints of any loss of sensation or any burning pain in the feet. Patient is complaint with taking diabetic medications as prescribed and following a low carbohydrate and low sugar diet. Closely monitors blood glucose levels, checking them 2-3 times a day. Follows with PCP and nephrology has lab work completed as directed. 5. Long-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 (Z79.4: intermediate card tender (current) use of insulin) see #2 6. 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 Normal [facility] Comment on above: Result Comment: Elec tronically Signed By: RICKY VALDIVIA CNP\.br\Date and Time Signed: 12/16/23 16:18 EDT\.br\Electronically Co-Signed By: Ling Garber\.br\Date and Time Co-Signed: 12/16/23 16:03 EDT Office Visiton 11-08-2023 Follow-up visit [id number] Lj Doll 1955 F Date Provider Department Center 11/08/2023 [facility]OL[facility] Yong Abdullahi Family History Problem Relation Age of Onset Coronary artery disease Mother Coronary artery disease Father Brain cancer Brother Family Status - Relation Status Age at Mother Father Brother Level of Service:17786 CO OFFICE/OUTPATIENT ESTABLISHED LOW MDM 20 MIN Normal [facility] Retail - Clinical Noteon Retail - Clinical Note [id number] 1.00TIFF Normal [facility] Consultation Noteon 09-17-19 Consultation Note [id number] #1.00TIFF Normal [facility] Ambulatory Visit Summaryon 0 08-31-2023 Ambulatory Visit Summary LJ DOLL :1955 Visit Date:08/31/2023 Ambulatory Visit Instructions Your Diagnosis Chronic kidney disease (CKD), stage IV (severe) DM type 2 causing CKD stage 4 JESSICA (obstructive sleep apnea) RA (rheumatoid arthritis) BMI 34.0-34.9,adult Class 1 obesity due to excess calories in adult Nonsmoker Anemia Dyslipidemia Liver enzymes level above reference range Major depressive disorder in remission Your Care Team Attending Physician - Arley Keller MD Primary Care Physician - Arley Keller MD This Is Your Medications List Contact prescribing physician if questions or concerns amitriptyline (amitriptyline 25 mg Tab) aspirin calcium-vitamin D carvedilol (carvedilol 3.125 mg Tab) etanercept (Enbrel) furosemide (furosemide 20 mg Tab) gabapentin (gabapentin 100 mg Cap) hydroxychloroquine (hydroxychloroquine 200 mg Tab) insulin glargine (Lantus Solostar Pen 100 units/mL subcutaneous solution) insulin lispro (Insulin Lispro KwikPen 100 units/mL injectable solution) lisinopril (lisinopril 5 mg Tab) metformin (metformin 850 mg Tab) montelukast (montelukast 10 mg Tab) multivitamin with minerals (Celebrate Multivitamin oral capsule) [...] for coronary artery disease, Release of trigger finger, Total hysterectomy. Discharge Vitals Temperature (Oral) 36.7 ?C Heart Rate (Peripheral) 66 Respiratory Rate 16 Blood Pressure 128/68 Height 160 cm Height 63 in Weight 88.4 kg Weight 194.48 lb BMI 34.53 What to do next Scheduled Follow-Up Appointments Wednesday 9:30 AM EDT With: Where: [facility] [place] [address] [place], [place] [id number]- \.br\ Medications\.br\ What How Much When Why Instructions\.br\ Unchanged amitriptyline (amitriptyline 25 mg Tab) 1 Tablets By Mouth Once a day (at bedtime) Contact prescribing physician if questions or concerns \.br\ Unchanged aspirin 81 Milligram Every day Contact prescribing physician if questions or concerns \.br\ Unchanged calcium-vitamin D 1 TAB By Mouth Every day Contact prescribing physician if questions or concerns \.br\ Unchanged carvedilol (carvedilol 3.125 mg Tab) 1 Tablets By Mouth 2 times a day Contact prescribing physician if questions or concerns \.br\ Unchanged etanercept (Enbrel) 50 Milligram Subcutaneous Every week Contact prescribing physician if questions or concerns \.br\ Unchanged furosemide (furosemide 20 mg Tab) 1 Tablets By Mouth Every day Contact prescribing physician if questions or concerns \.br\ Unchanged gabapentin (gabapentin 100 mg Cap) 2 Capsules By Mouth At bedtime Contact prescribing physician if questions or concerns \.br\ Unchanged hydroxychloroquine (hydroxychloroquine 200 mg Tab) 1 Tablets By Mouth 2 times a day Contact prescribing physician if questions or concerns \.br\ Unchanged insulin glargine (Lantus Solostar Pen 100 units/ mL subcutaneous solution) 20 Units Subcutaneous Every day Contact prescribing physician if questions or concerns \.br\ Unchanged insulin lispro (Insulin Lispro KwikPen 100 units/ mL injectable solution) Subcutaneous Twice a day (before meals) Contact prescribing physician if questions or concerns \.br\ Unchanged lisinopril (lisinopril 5 mg Tab) 0.5 Tablets By Mouth Every day Contact prescribing physician if questions or concerns \.br\ Unchanged metformin (metformin 850 mg Tab) 1 Tablets By Mouth Every day Contact prescribing physician if questions or concerns \.br\ Unchanged montelukast (montelukast 10 mg Tab) 1 Tablets By Mouth Once a day (in the evening) Allergies Cough in adult Contact prescribing physician if questions or concerns \.br\ Unchanged multivitamin with minerals (Celebrate Multivitamin oral capsule) 1 Capsules By Mouth Every day Contact prescribing physician if questions or concerns \.br\ Unchanged pantoprazole (Pantoprazole [address] Tab) 1 Tablets By Mouth Every day Contact prescribing physician if questions or concerns \.br\ Unchanged rosuvastatin (rosuvastatin 5 mg Tab) 1 Tablets By Mouth Once a day (at bedtime) Contact prescribing physician if questions or concerns \.br\ Unchanged semaglutide (Ozempic 2 mg/ 1.5 mL (1 mg dose) subcutaneous solution) 1 Milligram Subcutaneous Every week Contact prescribing physician if questions or concerns \.br\ Unchanged sertraline (sertraline 50 mg Tab) 1 Tablets By Mouth Every day Contact prescribing physician if questions or concerns \.br\ Allergies\.br\ Antihistamine (VERY FOGGY BRAIN)\.br\ Daypro (INEFFECTIVE)\.br\ Humira (Hives)\.br\ statins (MUSCLE CRAMPS)\.br\ Problems\.br\ Ongoing - Any problem that you are currently receiving treatment for.\.br\ Anemia\.br\ Anterior dislocation of shoulder\.br\ 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br\ Historical - Any problem that you are no longer receiving treatment for.\.br\ Rheumatic joint disease\.br\ Patient Survey\.br\ You may receive a survey via text or e-mail asking about your office visit. Please share your experience with us by completing your survey. We appreciate your feedback and thank you for choosing us for your care.\.br\ Education Materials\.br\ BMI for Adults\.br\ What is BMI?\.br\ Body mass index (BMI) is a number that is calculated from a person's weight and height. BMI can help estimate how much of a person's weight is composed of fat. BMI does not measure body fat directly. Rather, it is an alternative to procedures that directly measure body fat, which can be difficult and expensive.\.br\ BMI can help identify people who may be at higher risk for certain medical problems.\.br\ What are BMI measurements used for?\.br\ BMI is used as a screening tool to identify possible weight problems. It helps determine whether a person is obese, overweight, a healthy weight, or underweight.\.br\ BMI is useful for:\.br\ ? \.br\ Identifying a weight problem that may be related to a medical condition or may increase the risk for medical problems.\.br\ ? \.br\ Promoting changes, such as changes in diet and exercise, to help reach a healthy weight. BMI screening can be repeated to see if these changes are working.\.br\ How is BMI calculated?\.br\ BMI involves measuring your weight in relation to your height. Both height and weight are measured, and the BMI is calculated from those numbers. This can be done either in [place] ([place] or metric measurements. Note that charts and online BMI calculators are available to help you find your BMI quickly and easily without having to do these calculations yourself.\.br\ To calculate your BMI in [place] measurements:\.br\ \.br\ 1. \.br\ Measure your weight in pounds (lb).\.br\ 2. \.br\ Multiply the number of pounds by 703.\.br\ ? \.br\ For example, for a person who weighs 180 lb, multiply that number by 703, which equals 126,540.\.br\ 3. \.br\ Measure your height in inches. Then multiply that number by itself to get a measurement called inches squared. \.br\ ? \.br\ For example, for a person who is 70 inches tall, the inches squared measurement is 70 inches x 70 inches, which equals 4,900 inches squared.\.br\ 4. \.br\ Divide the total from step 2 (number of lb x 703) by the total from step 3 (inches squared): 126,540 ? 4,900 = 25.8. This is your BMI.\.br\ To calculate your BMI in metric measurements:\.br\ 1. \.br\ Measure your weight in kilograms (kg).\.br\ 2. \.br\ Measure your height in meters (m). Then multiply that number by itself to get a measurement called meters squared. \.br\ ? \.br\ For example, for a person who is 1.75 m tall, the meters squared measurement is 1.75 m x 1.75 m, which is equal to 3.1 meters squared.\.br\ 3. \.br\ Divide the number of kilograms (your weight) by the meters squared number. In this example: 70 ? 3.1 = 22.6. This is your BMI.\.br\ What do the results mean?\.br\ BMI charts are used to identify whether you are underweight, normal weight, overweight, or obese. The following guidelines will be used:\.br\ ? \.br\ Underweight: BMI less than 18.5.\.br\ ? \.br\ Normal weight: BMI between 18.5 and 24.9.\.br\ ? \.br\ Overweight: BMI between 25 and 29.9.\.br\ ? \.br\ Obese: BMI of 30 or above.\.br\ Keep these notes in mind:\.br\ ? \.br\ Weight includes both fat and muscle, so someone with a muscular build, such as an athlete, may have a BMI that is higher than 24.9. In cases like these, BMI is not an accurate measure of body fat.\.br\ ? \.br\ To determine if excess body fat is the cause of a BMI of 25 or higher, further assessments may need to be done by a health care provider.\.br\ ? \.br\ BMI is usually interpreted in the same way for [facility] CBC w/ Auto Diffon 4 Basophils/100 WBC (Bld) 0.7 % Normal 0.0-2.0 [facility] Comment on above: Performed By: #### 2 [id number] #### [facility] [address] [place] [address] Basophils/Leukocytes Auto (Bld) [Pure # fraction] 0.1 E9/L Normal 0.0-0.2 [facility] Comment on above: Performed By: #### 2 [id number] #### [facility] [address] [place] [address] Eosinophils (Bld) [#/Vol] 0.3 E9/L Normal 0.0-0.5 [facility] Comment on above: Performed By: #### 2 [id number] #### [facility] [address] [place] [address] Eosinophils/100 WBC (Bld) 4.3 % Normal 0.0-8.0 [facility] Comment on above: Performed By: #### 2 [id number] #### [facility] [address] [place] [address] Erythrocyte distribution width (RBC) [Ratio] 13.5 % Normal 10.9-14.2 [facility] Comment on above: Performed By: #### 2 [id number] #### [facility] [address] [place] [address] Hematocrit (Bld) [Volume fraction] 35.6 % Normal 34.0-46.0 [facility] Comment on above: Performed By: #### 2 [id number] #### [facility] [address] [place] [address] Hemoglobin (Bld) [Mass/Vol] 11.7 g/dL Low 12.0-16.0 [facility] Comment on above: Performed By: #### 2 [id number] #### [facility] [address] [place] [address] Lymphocytes (Bld) [#/Vol] 2.4 E9/L Normal 1.0-4.0 [facility] Comment on above: Performed By: #### 2 [id number] #### [facility] [address] [place] [address] Lymphocytes/100 WBC (Bld) 32.9 % Normal 14.0-50.0 [facility] Comment on above: Performed By: #### 2 [id number] #### [facility] [address] [place] [address] MCH (RBC) [Entitic mass] 28.4 pg Normal 27.0-34.0 [facility] Comment on above: Performed By: #### 2 [id number] #### [facility] [address] [place] [address] MCHC (RBC) [Mass/Vol] 32.8 g/dL Normal 31.4-36.0 [facility] Comment on above: Performed By: #### 2 [id number] #### [facility] [address] [place] [address] MCV (RBC) [Entitic vol] 86.7 fL Normal 80.0-100.0 [facility] Comment on above: Performed By: #### 2 [id number] #### [facility] [address] [place] [address] Monocytes (Bld) [#/Vol] 0.6 E9/L Normal 0.2-1.0 [facility] Comment on above: Performed By: #### 2 [id number] #### [facility] [address] [place] [address] Neutrophils (Bld) [#/Vol] 4.0 E9/L Normal 2.0-7.5 [facility] Comment on above: Performed By: #### 2 188212 #### [facility] [address] [place] [address] Neutrophils/100 WBC (Bld) 53.8 % Normal 36.0-75.0 [facility] Comment on above: Performed By: #### 2 [id number] #### [facility] [address] [place] [address] Platelet mean volume (Bld) [Entitic vol] 7.9 fL Normal 6.4-10.8 [facility] Comment on above: Performed By: #### 2 [id number] #### [facility] [address] [place] [address] Platelets (Bld) [#/Vol] 279.0 E9/L Normal 150.0-500.0 [facility] Comment on above: Performed By: #### 2 [id number] #### [facility] [address] [place] [address] RBC (Bld) [#/Vol] 4.1 E12/L Low 4.3-5.9 [facility] Comment on above: Performed By: #### 2 [id number] #### [facility] [address] [place] [address] WBC corrected for nucl RBC Auto (Bld) [#/Vol] 7.4 E9/L Normal 4.0-11.0 [facility] Comment on above: Performed By: #### 2 [id number] #### [facility] [address] [place] [address] CHEMISTRYOrdered By: SYSTEM SYSTEM on 08-31-2023 Albumin [Mass/Vol] 4.1 g/dL Normal 3.3 - 5.0 gm/dL R emisol Chem Albumin/Globulin [Mass ratio] 1.4 {ratio} Normal 1.1 - 2.2 [facility] ALP [Catalytic activity/Vol] 79 [iU]/d Normal 21 - 98 Int._Unit/L [facility] ALT No additional P-5'-P [Catalytic activity/Vol] 26 [iU]/d Normal 6 - 46 Int._Unit/L [facility] Anion gap [Moles/Vol] 10 mmol/L Normal 6 - 16 mEq/L [facility] AST [Catalytic activity/Vol] 23 [iU]/d Normal 5 - 43 Int._Unit/L [facility] Bilirubin [Mass/Vol] 0.4 mg/dL Normal 0.0 - 1.1 mg/dL [facility] Calcium [Mass/Vol] 8.8 mg/dL Low 8.9 - 11.1 mg/dL [facility] Chloride [Moles/Vol] 107 mmol/L Normal 101 - 111 mmol/ L [facility] Cholesterol [Mass/Vol] 156 mg/dL Normal 120 - 200 mg/dL [facility] Cholesterol in HDL [Mass/Vol] 60 mg/dL Invalid Interpretation Code [facility] Comment on above: Result Comment: '>= 60 LOW RISK' '<= 40 HIGH RISK' Cholesterol in LDL [Mass/Vol] 78 mg/dL Normal <=129mg/dL [facility] Cholesterol in VLDL [Mass/Vol] 22 mg/dL Normal 7 - 40 mg/dL [facility] CO2 [Moles/Vol] 27 mmol/L Normal 21 - 31 mmol/L Remis [facility] Creatinine [Mass/Vol] 1.0 mg/dL Normal 0.5 - 1.3 mg/dL [facility] eGFR 60 mL/min/1.73 m2 Normal >=59mL/min/1.73 m2 [facility] Globulin (S) [Mass/Vol] 3.0 g/dL Normal 1.4 - 4.0 gm/dL [facility] Glucose [Mass/Vol] 170 mg/dL Normal 55 - 199 mg/dL Re misol Chem Potassium [Moles/Vol] 4.2 mmol/L Normal 3.5 - 5.3 mmol/L [facility] Protein [Mass/Vol] 7.1 g/dL Normal 6.0 - 7.8 gm/dL R emisol Chem Sodium [Moles/Vol] 140 mmol/L Normal 135 - 145 mmol/L [facility] Triglyceride [Mass/Vol] 108 mg/dL Normal <=149mg/dL [facility] Urea nitrogen [Mass/Vol] 19 mg/dL Normal 5 - 21 mg/dL [facility] Urea nitrogen/Creatinine [Mass ratio] 19 mg/mg Normal 10 - 20 [facility] CHEMISTRYOrdered By: Cam thomas on 08-31-2023 HbA1c (Bld) [Mass fraction] 6.8 % High <=5.9% [facility] ChemAutoSS CMPon 08-31-2023 Albumin [Mass/Vol] 4.1 g/dL Normal 3.3-5.0 [facility] Comment on above: Performed By: #### 2 [id number] #### [facility] [address] [place] [address] Albumin/Globulin (S) [Mass conc ratio] 1.4 Normal 1.1-2.2 [facility] Comment on above: Performed By: #### 2 [id number] #### [facility] [address] [place] [address] ALP [Catalytic activity/Vol] 79 Int._Unit/L Normal 21-98 [facility] Comment on above: Performed By: #### 2 [id number] #### [facility] [address] [place] [address] ALT No additional P-5'-P [Catalytic activity/Vol] 26 Int._Unit/L Normal 6-46 [facility] Comment on above: Performed By: #### 2 [id number] #### [facility] [address] [place] [address] Anion gap [Moles/Vol] 10 mmol/L Normal 6-16 [facility] Comment on above: Performed By: #### 2 [id number] #### [facility] [address] [place] [address] AST [Catalytic activity/Vol] 23 Int._Unit/L Normal 5-43 [facility] Comment on above: Performed By: #### 2 [id number] #### [facility] [address] [place] [address] Bilirubin [Mass/Vol] 0.4 mg/dL Normal 0.0-1.1 [facility] Comment on above: Performed By: #### 2 [id number] #### [facility] [address] [place] [address] Calcium [Mass/Vol] 8.8 mg/dL Low 8.9-11.1 [facility] Comment on above: Performed By: #### 2 [id number] #### [facility] [address] [place] [address] Chloride [Moles/Vol] 107 mmol/L Normal 101-111 [facility] Comment on above: Performed By: #### 2 [id number] #### [facility] [address] [place] [address] CO2 [Moles/Vol] 27 mmol/L Normal 21-31 [facility] Comment on above: Performed By: #### 2 [id number] #### [facility] [address] [place] [address] Creatinine [Mass/Vol] 1.0 mg/dL Normal 0.5-1.3 [facility] Comment on above: Performed By: #### 2 [id number] #### [facility] [address] [place] [address] Globulin (S) [Mass/Vol] 3.0 g/dL Normal 1.4-4.0 [facility] Comment on above: Performed By: #### 2 [id number] #### [facility] [address] [place] [address] Glucose [Mass/Vol] 170 mg/dL Normal 55-199 [facility] Comment on above: Performed By: #### 2 [id number] #### [facility] [address] [place] [address] Potassium [Moles/Vol] 4.2 mmol/L Normal 3.5-5.3 [facility] Comment on above: Performed By: #### 2 161389 #### [facility] [address] [place] [address] Protein [Mass/Vol] 7.1 g/dL Normal 6.0-7.8 [facility] Comment on above: Performed By: #### 2 137210 #### [facility] [facility] [address] [place] [address] Sodium [Moles/Vol] 140 mmol/L Normal 135-145 [facility] Comment on above: Performed By: #### 2 [id number] #### [facility] [address] [place] [address] Urea nitrogen [Mass/Vol] 19 mg/dL Normal 5-21 [facility] Comment on above: Performed By: #### 2 [id number] #### [facility] [address] [place] [address] Urea nitrogen/Creatinine [Mass ratio] 19 No Units Normal 10-20 [facility] Comment on above: Performed By: #### 2 [id number] #### [facility] [address] [place] [address] Family Medicine Office/Clini c Noteon 08-31-2023 Family Medicine Office/Clinic Note HPI Staff Lj is a 68 year old female presenting for 6 month follow up DM, CKD, JESSICA, RA Do you have any of the following symptoms? Foot Exam: UTD Eye Exam: UTD Last A1C: 6.3% last month ( dr Barker[facility]) Statin: rosuvastatin 5mg questions/concerns: having trouble getting any cpap supplies with [employer] and they've changed hands and it's a fighting saha. would like to [place] to [place] in [place] Needs to know when last testing was done History of Present Illness - Here for follow up. - BS are doing well. - Needs CPAP supplies to keep using the cpap. Using CPAP helps with feeling energized and keeps her from being fatigued. - Nephrology is happy with her state. Reviewed records. - Needs labs Review of Systems PHQ Score Initial Depression Screen Score: 0 SCORE Physical Exam Vitals & Measurements T: 36.7 ?C(Oral) HR: 66(Peripheral) RR: 16 BP: 128/68 SpO2: 98% HT: 63 in HT: 160 cm WT: 88.4 kg WT: 194.48 lb BMI: 34.53 General: alert, no acute distress ENMT: oral mucosa moist, Cardiovascular: regular rate and rhythm, normal peripheral perfusion Respiratory: Lungs CTA, respirations non labored Extremities: no deformity, no trauma Neurological: oriented x 4, LOC appropriate for age, CN II-XII intact, motor strength equal & normal bilaterally, speech normal Abdomen: Soft, Nontender, Non-distended, + BS Assessment/Plan 1. Chronic kidney disease (CKD), stage IV (severe) (N18.4: Chronic kidney disease, stage 4 (severe)) - Seeing Nephrology. - Will order labs today. - NO concerns from Nephro Ordered: Body Mass Index (BMI) documented 3008F Current tobacco non-user 1036F Depression Screening Negative 3352F Influenza immunization administered or previously received 4274F Most recent diastolic blood pressure <80 mm Hg 3078F Patient screen for fall risk: no falls in last year or 1 fall with no injury in last year 1101F Systolic BP <130 mm Hg (Most Recent) 3074F 2. 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 - Needs labs - Adjust meds as needed Ordered: Body Mass Index (BMI) documented 3008F Current tobacco non-user 1036F Depression Screening Negative 3352F Influenza immunization administered or previously received 4274F Most recent diastolic blood pressure <80 mm Hg 3078F Patient screen for fall risk: no falls in last year or 1 fall with no injury in last year 1101F Systolic BP <130 mm Hg (Most Recent) 3074F 3. JESSICA (obstructive sleep apnea) (G47.33: Obstructive sleep apnea (adult) (pediatric)) - Will work to get CPAP supplies for the patient as it makes her feel better. Ordered: Body Mass Index (BMI) documented 3008F Current tobacco non-user 1036F Depression Screening Negative 3352F Influenza immunization administered or previously received 4274F Most recent diastolic blood pressure <80 mm Hg 3078F Patient screen for fall risk: no falls in last year or 1 fall with no injury in last year 1101F Systolic BP <130 mm Hg (Most Recent) 3074F 4. RA (rheumatoid arthritis) (M06.9: Rheumatoid arthritis, unspecified) - Continue on the Hydroxychloroquine - Will do labs Ordered: Body Mass Index (BMI) documented 3008F Current tobacco non-user 1036F Depression Screening Negative 3352F Influenza immunization administered or previously received 4274F Most recent diastolic blood pressure <80 mm Hg 3078F Patient screen for fall risk: no falls in last year or 1 fall with no injury in last year 1101F Systolic BP <130 mm Hg (Most Recent) 3074F 5. BMI 34.0-34.9,adult (Z68.34: Body mass index [BMI] 34.0-34.9, adult) - BMI education given. - Diet and exercise advised Ordered: Body Mass Index (BMI) documented 3008F Current tobacco non-user 1036F Depression Screening Negative 3352F Influenza immunization administered or previously received 4274F Most recent diastolic blood pressure <80 mm Hg 3078F Patient screen for fall risk: no falls in last year or 1 fall with no injury in last year 1101F Systolic BP <130 mm Hg (Most Recent) 3074F 6. Class 1 obesity due to excess calories in adult (E66.09: Other obesity due to excess calories) - Please work on Lifestyle modifications Ordered: Body Mass Index (BMI) documented 3008F Current tobacco non-user 1036F Depression Screening Negative 3352F Influenza immunization administered or previously received 4274F Most recent diastolic blood pressure <80 mm Hg 3078F Patient screen for fall risk: no falls in last year or 1 fall with no injury in last year 1101F Systolic BP <130 mm Hg (Most Recent) 3074F 7. Nonsmoker (Z78.9: Other specified health status) - Please continue to not smoke. Ordered: Body Mass Index (BMI) documented 3008F Current tobacco non-user 1036F Depression Screening Negative 3352F Influenza immunization administered or previously received 4274F Most recent diastolic blood pressure <80 mm Hg 3078F Patient (more content not included)... Normal [facility] Comment on above: Result Comment: Elec tronically Signed By: Krishna SIMENTAL, Arley Heredia\.br\Date and Time Signed: 08/31/23 09:43 EDT HEMATOLOGYOrdered By: SYSTEM SYSTEM on 08-31-2023 Basophils/100 WBC (Bld) 0.7 % Normal 0.0 - 2.0 % Remisol Heme Basophils/Leukocytes Auto (Bld) [Pure # fraction] 0.1 E9/L Normal 0.0 - 0.2 E9/L Remisol Heme Eosinophils (Bld) [#/Vol] 0.3 E9/L Normal 0.0 - 0.5 E9/L Remisol Heme Eosinophils/100 WBC (Bld) 4.3 % Normal 0.0 - 8.0 % Remisol Heme Erythrocyte distribution width (RBC) [Ratio] 13.5 % Normal 10.9 - 14.2 % Remisol Heme Hematocrit (Bld) [Volume fraction] 35.6 % Normal 34.0 - 46.0 % Remisol Heme Hemoglobin (Bld) [Mass/Vol] 11.7 g/dL Low 12.0 - 16.0 gm/dL Remisol Heme Lymphocytes (Bld) [#/Vol] 2.4 E9/L Normal 1.0 - 4.0 E9/L Remisol Heme Lymphocytes/100 WBC (Bld) 32.9 % Normal 14.0 - 50.0 % Remisol Heme MCH (RBC) [Entitic mass] 28.4 pg Normal 27.0 - 34.0 pg Remisol Heme MCHC (RBC) [Mass/Vol] 32.8 g/dL Normal 31.4 - 36.0 gm/dL Remisol Heme MCV (RBC) [Entitic vol] 86.7 fL Normal 80.0 - 100.0 fL Remisol Heme Monocytes (Bld) [#/Vol] 0.6 E9/L Normal 0.2 - 1.0 E9/L Remisol Heme Monocytes/100 WBC (Bld) 8.3 % Normal 4.0 - 14.0 % Remisol Heme Neutrophils (Bld) [#/Vol] 4.0 E9/L Normal 2.0 - 7.5 E9/L Remisol Heme Neutrophils/100 WBC (Bld) 53.8 % Normal 36.0 - 75.0 % Remisol Heme Platelet mean volume (Bld) [Entitic vol] 7.9 fL Normal 6.4 - 10.8 fL Remisol Heme Platelets (Bld) [#/Vol] 279.0 E9/L Normal 150.0 - 500.0 E9/L Remisol Heme RBC (Bld) [#/Vol] 4.1 E12/L Low 4.3 - 5.9 E12/L Re misol Heme WBC corrected for nucl RBC Auto (Bld) [#/Vol] 7.4 E9/L Normal 4.0 - 11.0 E9/L Remisol Heme [id number] 08-31-2023 HbA1c (Bld) [Mass fraction] 6.8 % High <=5.9 [facility] Comment on above: Performed By: #### 7 [id number] #### [facility] [address] [place] [address] Lipid Panelon 08-31-2023 Cholesterol [Mass/Vol] 156 mg/dL Normal 120-200 [facility] Comment on above: Performed By: #### 2 [id number] #### [facility] [address] [place] [place] [address] Cholesterol in HDL [Mass/Vol] 60 mg/dL Invalid Interpretation Code [facility] Comment on above: Result Comment: '>= 60 LOW RISK' '<= 40 HIGH RISK' Performed By: #### 2 [id number] #### [facility] [address] [place] [address] Cholesterol in LDL [Mass/Vol] 78 mg/dL Normal <=129 [facility] Comment on above: Performed By: #### 2 [id number] #### [facility] [address] [place] [place] [address] Cholesterol in VLDL [Mass/Vol] 22 mg/dL Normal 7-40 [facility] Comment on above: Performed By: #### 2 [id number] #### [facility] [address] [place] [facility] [place] [address] Triglyceride [Mass/Vol] 108 mg/dL Normal <=149 [facility] Comment on above: Performed By: #### 2 [id number] #### [facility] [address] [place] [address] Patient Educationon 08-31-19 Patient Education Nutrition BMI for Adults What is BMI? Body mass index (BMI) is a number that is calculated from a person's weight and height. BMI can help estimate how much of a person's weight is composed of fat. BMI does not measure body fat directly. Rather, it is an alternative to procedures that directly measure body fat, which can be difficult and expensive. BMI can help identify people who may be at higher risk for certain medical problems. What are BMI measurements used for? BMI is used as a screening tool to identify possible weight problems. It helps determine whether a person is obese, overweight, a healthy weight, or underweight. BMI is useful for: ? Identifying a weight problem that may be related to a medical condition or may increase the risk for medical problems. ? Promoting changes, such as changes in diet and exercise, to help reach a healthy weight. BMI screening can be repeated to see if these changes are working. How is BMI calculated? BMI involves measuring your weight in relation to your height. Both height and weight are measured, and the BMI is calculated from those numbers. This can be done either in [place] ([place] or metric measurements. Note that charts and online BMI calculators are available to help you find your BMI quickly and easily without having to do these calculations yourself. To calculate your BMI in [place] measurements: 1. Measure your weight in pounds (lb). 2. Multiply the number of pounds by 703. ? For example, for a person who weighs 180 lb, multiply that number by 703, which equals 126,540. 3. Measure your height in inches. Then multiply that number by itself to get a measurement called inches squared. ? For example, for a person who is 70 inches tall, the inches squared measurement is 70 inches x 70 inches, which equals 4,900 inches squared. 4. Divide the total from step 2 (number of lb x 703) by the total from step 3 (inches squared): 126,540 ? 4,900 = 25.8. This is your BMI. To calculate your BMI in metric measurements: 1. Measure your weight in kilograms (kg). 2. Measure your height in meters (m). Then multiply that number by itself to get a measurement called meters squared. ? For example, for a person who is 1.75 m tall, the meters squared measurement is 1.75 m x 1.75 m, which is equal to 3.1 meters squared. 3. Divide the number of kilograms (your weight) by the meters squared number. In this example: 70 ? 3.1 = 22.6. This is your BMI. What do the results mean? BMI charts are used to identify whether you are underweight, normal weight, overweight, or obese. The following guidelines will be used: ? Underweight: BMI less than 18.5. ? Normal weight: BMI between 18.5 and 24.9. ? Overweight: BMI between 25 and 29.9. ? Obese: BMI of 30 or above. Keep these notes in mind: ? Weight includes both fat and muscle, so someone with a muscular build, such as an athlete, may have a BMI that is higher than 24.9. In cases like these, BMI is not an accurate measure of body fat. ? To determine if excess body fat is the cause of a BMI of 25 or higher, further assessments may need to be done by a health care provider. ? BMI is usually interpreted in the same way for men and women. Where to find more information For more information about BMI, including tools to quickly calculate your BMI, go to these websites: ? Centers for Disease Control and Prevention: www.cdc.gov ? [place] [employer]: www.heart.org ? National Heart, Lung, and Blood [place]: www.nhlbi.nih.gov Summary ? Body mass index (BMI) is a number that is calculated from a person's weight and height. ? BMI may help estimate how much of a person's weight is composed of fat. BMI can help identify those who may be at higher risk for certain medical problems. ? BMI can be measured using [place]ese measurements or metric measurements. ? BMI charts are used to identify whether you are underweight, normal weight, overweight, or obese. This information is not intended to replace advice given to you by your health care provider. Make sure you discuss any questions you have with your health care provider. Document Revised: 12/13/2019 Document Reviewed: 10/20/2019 [employer] Patient Education ? 2022 [employer]. Normal [facility] eGFRon 08-31-2023 eGFR 60 mL/min/1.73 m2 Normal >=59 [facility] Comment on above: Order Comment: Order added by Discern Expert. Performed By: #### 1 [id number] #### [facility] [address] [place] [address] Consultation Noteon 08-25-19 24 Consultation Note [id number] #[id number] Normal [facility] Ambulatory Visit Summaryon 0 07-09-2023 Ambulatory Visit Summary LJ DOLL :1955 Visit Date:07/09/2023 Ambulatory Visit Instructions Your Diagnosis Cough in adult BMI 34.0-34.9,adult Your Care Team Attending Physician - RICKY VALDIVIA CNP Primary Care Physician - Arley Keller MD This Is Your Medications List amitriptyline (amitriptyline 25 mg Tab) aspirin calcium-vitamin D carvedilol (carvedilol 3.125 mg Tab) etanercept (Enbrel) furosemide (furosemide 20 mg Tab) gabapentin (gabapentin 100 mg Cap) hydroxychloroquine (hydroxychloroquine 200 mg Tab) [...] for coronary artery disease, Release of trigger finger, Total hysterectomy. Discharge Vitals Temperature (Temporal Artery) 36.9 ?C Heart Rate (Peripheral) 62 Blood Pressure 128/58 Height 160 cm Height 63 in Weight 87.6 kg Weight 192.72 lb BMI 34.22 What to do next Scheduled Follow-Up Appointments Wednesday. 2023 9:15 AM EDT With: Krishna SIMENTAL, Arley Heredia Where: [place] [id number]- \.br\ Medications\.br\ What How Much When Instructions\.br\ Unchanged amitriptyline (amitriptyline 25 mg Tab) 1 Tablets By Mouth Once a day (at bedtime)\.br\ Unchanged aspirin 81 Milligram Every day\.br\ Unchanged calcium-vitamin D 1 TAB By Mouth Every day\.br\ Unchanged carvedilol (carvedilol 3.125 mg Tab) 1 Tablets By Mouth 2 times a day\.br\ Unchanged etanercept (Enbrel) 50 Milligram Subcutaneous Every week\.br\ Unchanged furosemide (furosemide 20 mg Tab) 1 Tablets By Mouth Every day\.br\ Unchanged gabapentin (gabapentin 100 mg Cap) 2 Capsules By Mouth At bedtime\.br\ Unchanged hydroxychloroquine (hydroxychloroquine 200 mg Tab) 1 [...] you are currently receiving treatment for.\.br\ Anemia\.br\ Anterior dislocation of shoulder\.br\ 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br\ Historical - Any problem that you are no longer receiving treatment for.\.br\ Rheumatic joint disease\.br\ Patient Survey\.br\ You may receive a survey via text or e-mail asking about your office visit. Please share your experience with us by completing your survey. We appreciate your feedback and thank you for choosing us for your care.\.br\ \.br\ [facility] Family Medicine Office/Clini c Noteon 07-09-2023 Family Medicine Office/Clinic Note Chief Complaint cough and back pain HPI Staff Patient of Dr. Keller presents for an acute visit. Respiratory C/O: Duration: Wednesday Body aches: no Chest congestion: yes Chills: no Cough: yes Ear complaints: yes feels weird Eye itching/watering: no Fever: no Headache: no Nasal congestion: yes Nasal discharge: yes clear Poor appetite: no Reduced activity: yes Sinus pain/pressure: no Sneezing: no Sputum production: yes clear Wheezing: no Ill contacts: no Remedies tried: Flonase Pain characteristics: Pain location: back Intensity:07/13 Onset: Wednesday Medication used: none Opioids prescribed: Medication agreement UTD: _ Urine drug screen performed:_ I have reviewed and verified the staff HPI to be accurate for this encounter. History of Present Illness 68 [address] old patient of Dr. Keller presents today for evaluation of cough since Wednesday. She reports she has allergies but she cannot take antihistamines. She reports when she coughs it pulls in her back but her back is fine when she is not coughing. Patient started using flonase on Wednesday and states it really has not helped much. She reports she has some clear mucus when she coughs. She denies contact with anyone that has been sick and she has not had a fever or any additional symptoms. Review of Systems PHQ Score Initial Depression Screen Score: 0 SCORE Constitutional: no fever, no chills, no sweats, no weakness Skin: no Jaundice, no rash, no lesions, nopetechiae ENMT: no ear pain, no sore throat, no congestion, no hoarseness Respiratory: no shortness of breath, mild cough, no orthopnea, no wheezing Cardiovascular: no chest pain, no palpitations, no edema Musculoskeletal: mild back pain with coughing , no trauma Neurologic: no headache, no dizziness, no numbness, no weakness Psychiatric: no sleeping problems, no irritability, no mood swings/depression. Additional ROS info: Except as noted in the above Review of Systems and in the History of Present Illness all other systems have been reviewed and are negative or noncontributory. Physical Exam Vitals & Measurements T: 36.9 ?C(Temporal Artery) HR: 62(Peripheral) BP: 128/58 SpO2: 97% HT: 63 in HT: 160 cm WT: 87.6 kg WT: 192.72 lb BMI: 34.22 General: alert, no acute distress ENMT: TM's clear, oral mucosa moist, no pharyngeal erythema or exudate Cardiovascular: regular rate and rhythm, normal peripheral perfusion Respiratory: Lungs CTA, respirations non labored Extremities: no deformity, no trauma Neurological: oriented x 4, LOC appropriate for age speech normal Assessment/Plan 1. Allergies (T78.40XA: Allergy, unspecified, initial encounter) Continue with flonase Start montelukast 10 mg one tablet daily Discussed potential adverse effects of the medication f/u in 4 weeks Ordered: montelukast, 10 mg = 1 tab(s), Oral, qPM, # 30 tab(s), Refills(s) 0, Pharmacy: [facility]/pharmacy #[id number], 160, cm, 07/09/23 10:50:00 EDT, Height/Length Dosing, 87.6, kg, 07/09/23 10:50:00 EDT, Weight Dosing 2. Cough in adult (R05.9: Cough, unspecified) Discussed with patient cough is a symptom; patient is afebrile and there is no evidence of bacterial or viral infection Encouraged to start the montelukast and then start the benzonatate Ordered: benzonatate, 100 mg = 1 cap(s), Oral, TID, X 7 day(s), # 21 cap(s), Refills(s) 0, Pharmacy: [facility]/pharmacy #[id number], 160, cm, 07/09/23 10:50:00 EDT, Height/Length Dosing, 87.6, kg, 07/09/23 10:50:00 EDT, Weight Dosing montelukast, 10 mg = 1 tab(s), Oral, qPM, # 30 tab(s), Refills(s) 0, Pharmacy: [facility]/pharmacy #[id number], 160, cm, 07/09/23 10:50:00 EDT, Height/Length Dosing, 87.6, kg, 07/09/23 10:50:00 EDT, Weight Dosing 3. BMI 34.0-34.9,adult (Z68.34: Body mass index [BMI] 34.0-34.9, adult) The standard range for ages 18 and older is >=18.5 and < 25 kg/m2. Your BMI today was above this range, this falls in the overweight to obese category and there are medical benefits to weight loss. We can offer counselling, referral, and/or medical support in addressing this problem. Your BMI and weight management will be followed at subsequent visits. 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 Normal [facility] Comment on above: Result Comment: Elec tronically Signed By: RICKY VALDIVIA CNP\.deric\Date and Time Signed: 07/09/23 11:30 EDT Patient Educationon 07-09-19 Patient Education Immunology Allergies, Adult An allergy means that your body reacts to something that bothers it (allergen). This can happen from something that you eat, breathe in, or touch. Allergies often affect the nose, eyes, skin, and stomach. They can be mild, moderate, or very bad (severe). An allergy cannot spread from person to person. They can happen at any age. Sometimes, people outgrow them. What are the causes? ? Outdoor things, such as pollen, car fumes, and mold. ? Indoor things, such as dust, smoke, mold, and pets. ? Foods. ? Medicines. ? Things that bother your skin, such as perfume and bug bites. What increases the risk? ? Having family members with allergies or asthma. What are the signs or symptoms? Symptoms depend on how bad your allergy is. Mild to moderate symptoms ? Runny nose, stuffy nose, or sneezing. ? Itchy mouth, ears, or throat. ? A feeling of mucus dripping down the back of your throat. ? Sore throat. ? Eyes that are itchy, red, watery, or puffy. ? A skin rash, or red, swollen areas of skin (hives). ? Stomach cramps or bloating. Severe symptoms Very bad allergies to food, medicine, or bug bites may cause a very bad allergy reaction (anaphylaxis). This can be life-threatening. Symptoms include: ? A red face. ? Wheezing or coughing. ? Swollen lips, tongue, or mouth. ? Tight or swollen throat. ? Chest pain or tightness, or a fast heartbeat. ? Trouble breathing or shortness of breath. ? Pain in your belly (abdomen), vomiting, or watery poop (diarrhea). ? Feeling dizzy or fainting. How is this treated? Treatment for this condition depends on your symptoms. Treatment may include: ? Cold, wet cloths for itching and swelling. ? Eye drops, nose sprays, or skin creams. ? Washing out your nose each day. ? A humidifier. ? Medicines. ? A change to the foods you eat. ? Being exposed again and again to tiny amounts of allergens. This helps your body get used to them. You might have: ? Allergy shots. ? Very small amounts of allergen put under your tongue. ? An emergency shot (auto-injector pen) if you have a very bad allergy reaction. ? This is a medicine with a needle. You can put it into your skin by yourself. ? Your doctor will teach you how to use it. Follow these instructions at home: Medicines ? Take or apply vbkn-lyj-kwxiejn and prescription medicines only as told by your doctor. ? If you are at risk for a very bad allergy reaction, keep an auto-injector pen with you all the time. Eating and drinking ? Follow instructions from your doctor about what to eat and drink. ? Drink enough fluid to keep your pee (urine) pale yellow. General instructions ? If you have ever had a very bad allergy reaction, wear a medical alert bracelet or necklace. ? Stay away from things that you are allergic to. ? Keep all follow-up visits as told by your doctor. This is important. Contact a doctor if: ? Your symptoms do not get better with treatment. Get help right away if: ? You have symptoms of a very bad allergy reaction. These include: ? A swollen mouth, tongue, or throat. ? Pain or tightness in your chest. ? Trouble breathing. ? Being short of breath. ? Dizziness. ? Fainting. ? Very bad pain in your belly. ? Vomiting. ? Watery poop. These symptoms may be an emergency. Do not wait to see if the symptoms will go away. Get medical help right away. Call your local emergency services (911 in the [place] Do not drive yourself to the hospital. Summary ? Take or apply mitm-kct-ydexcmp and prescription medicines only as told by your doctor. ? Stay away from things you are allergic to. ? If you are at risk for a very bad allergy reaction, carry an auto-injector pen all the time. ? Wear a medical alert bracelet or necklace. ? Very bad allergy reactions can be life-threatening. Get help right away. This information is not intended to replace advice given to you by your health care provider. Make sure you discuss any questions you have with your health care provider. Document Revised: 01/31/2020 Document Reviewed: 01/31/2020 [employer] Patient Education ? 2022 [employer] Normal [facility] Consultation Noteon 06-29-19 24 Consultation Note [id number] #1.00TIFF [facility] Discharge Note - PTon 2023 Discharge Note - PT [id number] #1.00TIFF [facility] PT - Progress Noteson 2023 PT - Progress Notes [id number] #1.00TIFF [facility] Consultation Noteon 05-17-19 Consultation Note [id number] #1.00TIFF [facility] XR Shoulder - right 2 Viewso n 05-14-2023 Imaging Result: X-rays and imaging permanently saved to the patient's record were reviewed two view shoulder shows reduction of the shoulder glenohumeral dislocation. There is mild to moderate degenerative changes. No sign of recurrent instability. There is no fracture or dislocation seen. This is AP and Y views saved to the permanent record in the [place] office. 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 COMPARISON: NONE. COMMENT: The right kidney measures approximately 11.7 cm in length, with renal cortical thickness of approximately 1.4 cm. The left kidney measures approximately 11.0 cm in length, with renal cortical thickness of approximately 1.6 cm. Both kidneys have a normal sonographic appearance. No renal masses nor cysts are seen. There is no hydronephrosis. Ordering Provider: Agustín Lacey FINAL REPORT Dictated: 05/11/2023 1:41 pm Boogie Ross MD, V. Signed (Electronic Signature): 05/11/2023 1:41 pm Signed by: Boogie Ross MD, V. Transcribed by: TIAN Technologist: [facility] Physician Orderon 05-05-2023 Physician Order [id number] #1.00TIFF [facility] Consultation Noteon 04-28-19 Consultation Note [id number] #1.00TIFF [facility] Calcium [Mass/volume] in Ser um or PlasmaOrdered By: Fransisco Benavides on 03-16-2023 Calcium [Mass/Vol] 9.2 mg/dL 8.6-10.[address] [facility] Creatinine [Mass/volume] in Serum or PlasmaOrdered By: Fransisco Benavides on 03-16-2023 Creatinine [Mass/Vol] 1.04 mg/dL 0.60-1.20 [facility] Magnesium [Mass/volume] in S melvin or PlasmaOrdered By: Fransisco Benavides on 03-16-2023 Magnesium [Mass/Vol] 1.5 mg/dL 1.9-2.7 [facility] No Panel InformationOrdered By: Fransisco Benavides on 03-16-2023 Estimated GFR (CKD-EPI) 58.180 mL/Min [facility] Creatinine Clearance (Chem N/A [facility] Phosphate [Mass/volume] in S melvin or PlasmaOrdered By: Fransisco Benavides on 03-16-2023 Phosphate [Mass/Vol] 3.6 mg/dL 2.5-4.5 [facility] Urea nitrogen [Mass/volume] in Serum or PlasmaOrdered By: Fransisco Benavides on 03-16-2023 Urea nitrogen [Mass/Vol] 25 mg/dL 10-27 [facility] PROTEIN ELECTROPHERESISon Albumin [Mass/Vol] 3.8 g/dL Normal 2.9-4.4 [facility] Comment on above: Performed By: #### P RTELEC #### [facility] [address] [address] [address] Jennifer Atkins Albumin/Globulin [Mass ratio] 1.2 {ratio} Normal 0.7-1.7 [facility] Comment on above: Performed By: #### P RTELEC #### [facility] [address] [place] [address] Dr. Jennifer Atkins Fzwvi-3-Wcurdidc 0.2 g/dL Normal 0.0-0.4 [facility] Comment on above: Performed By: #### P RTELEC #### [facility] [address] [place] [address] Dr. Jennifer Atkins Tubdf-0-Xzpzbune 0.8 g/dL Normal 0.4-1.0 [facility] Comment on above: Performed By: #### P RTELEC #### [facility] [address] [place] [address] Dr. Jennifer Atkins Beta Globulin 1.1 g/dL Normal 0.7-1.3 [facility] Comment on above: Performed By: #### P RTELEC #### [facility] [address] [place] [address] Dr. Jennifer Atkins Gamma Globulin 0.9 g/dL Normal 0.4-1.8 [facility] Comment on above: Performed By: #### P RTELEC #### [facility] [address] [place] [address] Dr. Jennifer Atkins Globulin (S) [Mass/Vol] 3.1 g/dL Normal 2.2-3.9 [facility] Comment on above: Performed By: #### P RTELEC #### [facility] [address] [place] [address] Dr. Jennifer Atkins M-Jimbo Not Observed Normal Not Observed [facility] Comment on above: Performed By: #### P RTELEC #### [facility] [address] [place] [address] Dr. Jennifer Atkins PDF . Normal [facility] Comment on above: Performed By: #### P RTELEC #### [facility] [address] [place] [address] Dr. Jennifer Atkins Please note: Comment Normal [facility] Comment on above: Result Comment: Prot ein electrophoresis scan will follow via computer, mail, or storekeeper engineering delivery. Performed By: #### P RTELEC #### [facility] [address] [place] [address] Dr. Jennifer Atkins Protein [Mass/Vol] 6.9 g/dL Normal 6.0-8.5 [facility] Comment on above: Performed By: #### P RTELEC #### [facility] [address] [place] [address] Dr. Jennifer Atkins TSHon 05-21-2022 TSH 1.479 uIU/mL Normal 0.358-3.740 [facility] Comment on above: Performed By: #### T SH #### [facility] [address] [place] [address] Dr. Jennifer Atkins VIT B12 AND FOLATEon 023 Cobalamin (Vitamin B12) [Mass/Vol] 738.0 pg/mL Normal 193.0-986.0 [facility] Comment on above: Performed By: #### B 12FOL #### [facility] [address] [place] [address] Dr. Jennifer Atkins FOLATE 25.70 ng/mL Normal 8.60-58.90 [facility] Comment on above: Performed By: #### B 12FOL #### [facility] [address] [place] [address] Dr. Jennifer Atkins ENHANCED LIVER FIBROSIS TEST on 01-28-2022 ELF (TM) Score 10.76 Critically high <9.80 [facility] Comment on above: Result Comment: [...] Oct;73(1):26-39. Performed By: #### E LF #### [facility] [address] [place] [address] Dr. Jennifer Atkins Established Visit (Gastroent erology)on 12-23-2021 Established Visit (Gastroenterology) Diagnoses/Problems Assessed NAFLD (nonalcoholic fatty liver disease) (571.8) (K76.0) Orders NAFLD (nonalcoholic fatty liver disease) MISCELLANEOUS TEST; Status:Active; Requested for:23Dec2021; Perform:Lab Services - Lab To Draw (Non-Blood Test); Order Comments:ENHANCED LIVER FIBROSIS (ELF) TEST: [id number] CPT: 0014M LABCORPSERUM 2.5 ML, MINIMUM 1 ML. GEL-BARRIER TUBE OR RED-TOP TUBEREFRIGERATE; Due:[id number];Ordere d; For:NAFLD (nonalcoholic fatty liver disease); Ordered By:Kenroy Low; Patient Discussion/Summary If you have any questions, do not hesitate to call the Hepatology Nurse Coordinator at [phone]. PLEASE CALL IN 2022 FOR ORDERS. [X ] LABS: ELF TEST. HAVE RESULTS FAXED TO OUR OFFICE, [X ] FIBROSCAN ONCE A YEAR (Specialized test that measures scarring and fat in the liver) - Call to schedule: [facility] and [place]: [phone]. - [place]: [phone] [X ] FOLLOW UP: IN 1 YEAR -Call to schedule [phone], Option 1 Provider Impressions we will check [...] DIRECTED. Lantus SoloStar 100 UNIT/ML Subcutaneous Solution Pen-[id number] units BID Metoprolol Tartrate 25 MG Oral TabletTAKE 1 TABLET TWICE DAILY. Multivitamins TABSTAKE 1 TABLET DAILY. Plaquenil 200 MG Oral TabletTAKE 1 TABLET TWICE DAILY WITH FOOD. Pro (more content not included)... Normal [employer] ALBUMIN, URINE SPOTon 2021 ALBUMIN,URINE <7.0 Normal Not Established [facility] Comment on above: Performed By: #### A LBSP #### [address] [id number] ALBUMIN/CREAT RATIO SEE COMMENT Normal 0.0 - 30.0 [facility] Comment on above: Result Comment: One or more analytes used in this calculation is outside of the analytical measurement range. Calculation cannot be performed. Performed By: #### A LBSP #### [address] [id number] CREATININE,URINE 20.2 mg/dL Normal 20.0 - 320.0 [facility] Comment on above: Performed By: #### A LBSP #### [address] [id number] C PEPTIDEon 12-02-2021 C PEPTIDE 0.8 ng/mL Normal 0.7 - 3.9 [facility] Comment on above: Performed By: #### C PEPT #### [facility] [id number] [place] [address] C Reactive Protein, Serumon 12-02-2021 CRP [Mass/Vol] mg/L [facility] [facility] Work Phone: Comment on above: REF VALUE< 1.00 C-REACTIVE PROTEINon 022 CRP [Mass/Vol] mg/L Normal [facility] Comment on above: Result Comment: REF VALUE < 1.00 Performed By: #### C RP #### [address] [id number] CBC AND DIFFERENTIALon 12-02 % AUTOMATED IMMATURE GRAN 0.2 % Normal 0.0 - 0.9 [facility] Comment on above: Result Comment: Melyssa ture Granulocyte Count (IG) includes promyelocytes, myelocytes and metamyelocytes but does not include bands. Percent differential counts (%) should be interpreted in the context of the absolute cell counts (cells/L). Performed By: #### C BCDF #### [address] [id number] Basophils (Bld) [#/Vol] 0.04 10*3/uL Normal 0.00 - 0.10 [facility] Comment on above: Performed By: #### C BCDF #### [address] [id number] Basophils/100 WBC (Bld) 0.6 % Normal 0.0 - 2.0 [facility] Comment on above: Performed By: #### C BCDF #### [address] [id number] Eosinophils (Bld) [#/Vol] 0.22 10*3/uL Normal 0.00 - 0.70 [facility] Comment on above: Performed By: #### C BCDF #### [address] [id number] Eosinophils/100 WBC (Bld) 3.5 % Normal 0.0 - 6.0 [facility] Comment on above: Performed By: #### C BCDF #### [address] [id number] Erythrocyte distribution width (RBC) [Ratio] 13.9 % Normal 11.5 - 14.5 [facility] Comment on above: Performed By: #### C BCDF #### [address] [id number] Hematocrit (Bld) [Volume fraction] 36.9 % Normal 36.0 - 46.0 [facility] Comment on above: Performed By: #### C BCDF #### [address] [id number] Hemoglobin (Bld) [Mass/Vol] 11.6 g/dL Low 12.0 - 16.0 [facility] Comment on above: Performed By: #### C BCDF #### [address] [id number] Lymphocytes (Bld) [#/Vol] 2.67 10*3/uL Normal 1.20 - 4.80 [facility] Comment on above: Performed By: #### C BCDF #### [address] [id number] Lymphocytes/100 WBC (Bld) 42.4 % Normal 13.0 - 44.0 [facility] Comment on above: Performed By: #### C BCDF #### [address] [id number] MCHC (RBC) [Mass/Vol] 31.4 g/dL Low 32.0 - 36.0 [facility] Comment on above: Performed By: #### C BCDF #### [address] [id number] MCV (RBC) [Entitic vol] 93 fL Normal 80 - 100 [facility] Comment on above: Performed By: #### C BCDF #### [address] [id number] Monocytes (Bld) [#/Vol] 0.70 10*3/uL Normal 0.10 - 1.00 [facility] Comment on above: Performed By: #### C BCDF #### [address] [id number] Monocytes/100 WBC (Bld) 11.1 % Normal 2.0 - 10.0 [facility] Comment on above: Performed By: #### C BCDF #### [address] [id number] Neutrophils (Bld) [#/Vol] 2.65 10*3/uL Normal 1.20 - 7.70 [facility] Comment on above: Performed By: #### C BCDF #### [address] [id number] Neutrophils/100 WBC (Bld) 42.2 % Normal 40.0 - 80.0 [facility] Comment on above: Performed By: #### C BCDF #### [address] [id number] Platelets (Bld) [#/Vol] 253 10*3/uL Normal 150 - 450 [facility] Comment on above: Performed By: #### C BCDF #### [address] [id number] RBC 3.96 x10E12/L Low 4.00 - 5.20 [facility] Comment on above: Performed By: #### C BCDF #### [address] [id number] WBC (Bld) [#/Vol] 6.3 10*3/uL Normal 4.4 - 11.3 [facility] Comment on above: Performed By: #### C BCDF #### [address] [id number] Complete Blood Count + Diffe rentialon 12-02-2021 Basophils/100 WBC (Bld) 0.6 % 0.0 - 2.0 [facility] [facility] Work Phone: Erythrocyte distribution width (RBC) [Ratio] 13.9 % See Below [facility] [facility] Work Phone: Comment on above: Reference Range: 11. 5 - 14.5 Hematocrit (Bld) [Volume fraction] 36.9 % See Below [facility] [facility] Work Phone: Comment on above: Reference Range: 36. 0 - 46.0 Hemoglobin (Bld) [Mass/Vol] 11.6 g/dL below low threshold See Below [facility] [facility] Work Phone: Comment on above: Reference Range: 12. 0 - 16.0 Lymphocytes/100 WBC (Bld) 42.4 % See Below [facility] [facility] Work Phone: Comment on above: Reference Range: 13. 0 - 44.0 MCHC (RBC) [Mass/Vol] 31.4 g/dL below low threshold See Below [facility] [facility] Work Phone: Comment on above: Reference Range: 32. 0 - 36.0 MCV (RBC) [Entitic vol] 93 fL 80 - 100 [facility] [facility] Work Phone: [phone] Monocytes/100 WBC (Bld) 11.1 % 2.0 - 10.0 [facility] [facility] Work Phone: Neutrophils/100 WBC (Bld) 42.2 % See Below [facility] [facility] Work Phone: Comment on above: Reference Range: 40. 0 - 80.0 Platelets (Bld) [#/Vol] 253 10*3/uL 150 - 450 [facility] [facility] Work Phone: RBC (Bld) [#/Vol] 3.96 {x10E12/L} below low threshold See Below [facility] [facility] Work Phone: Comment on above: Reference Range: 4.0 0 - 5.20 WBC (Bld) [#/Vol] 6.3 10*3/uL 4.4 - 11.3 [facility] [facility] Work Phone: Complete Blood Count + Differential 0.04 {x10E9/L} See Below [facility] [facility] Work Phone: Comment on above: Reference Range: 0.0 0 - 0.10 Complete Blood Count + Differential 0.22 {x10E9/L} See Below [facility] [facility] Work Phone: Comment on above: Reference Range: 0.0 0 - 0.70 Complete Blood Count + Differential 0.70 {x10E9/L} See Below [facility] [facility] Work Phone: Comment on above: Reference Range: 0.1 0 - 1.00 Complete Blood Count + Differential 2.67 {x10E9/L} See Below [facility] [facility] Work Phone: Comment on above: Reference Range: 1.2 0 - 4.80 Complete Blood Count + Differential 2.65 {x10E9/L} See Below [facility] [facility] Work Phone: Comment on above: Reference Range: 1.2 0 - 7.70 Complete Blood Count + Differential 3.5 % 0.0 - 6.0 [facility] [facility] Work Phone: Complete Blood Count + Differential 0.2 % 0.0 - 0.9 [facility] [facility] Work Phone: Comment on above: Immature Granulocyte Count (IG) includes promyelocytes, myelocytes and metamyelocytes but does not include bands. Percent differential counts (%) should be interpreted in the context of the absolute cell counts (cells/L). HEPATIC FUNCTION PANELon ALP [Catalytic activity/Vol] 63 U/L Normal 33 - 136 [facility] Comment on above: Performed By: #### H EPFP #### [address] [id number] ALT [Catalytic activity/Vol] 30 U/L Normal 7 - 45 [facility] Comment on above: Result Comment: Shannon ents treated with Sulfasalazine may generate falsely decreased results for ALT. Performed By: #### H EPFP #### [address] [id number] AST [Catalytic activity/Vol] 31 U/L Normal 9 - 39 [facility] Comment on above: Performed By: #### H EPFP #### [address] [id number] Bilirubin [Mass/Vol] 0.4 mg/dL Normal 0.0 - 1.2 [facility] Comment on above: Performed By: #### H EPFP #### [address] [id number] Bilirubin.indirect [Mass/Vol] 0.1 mg/dL Normal 0.0 - 0.3 [facility] Comment on above: Performed By: #### H EPFP #### [address] [id number] Protein [Mass/Vol] 7.5 g/dL Normal 6.4 - 8.2 [facility] Comment on above: Performed By: #### H EPFP #### [address] [id number] Hepatic Function Panelon Albumin BCP dye [Mass/Vol] 4.5 g/dL 3.4 - 5.0 [facility] [facility] Work Phone: ALP [Catalytic activity/Vol] 63 U/L 33 - 136 [facility] [facility] Work Phone: ALT With P-5'-P [Catalytic activity/Vol] 30 U/L 7 - 45 [facility] [facility] Work Phone: Comment on above: Patients treated wit h Sulfasalazine may generate falsely decreased results for ALT. AST With P-5'-P [Catalytic activity/Vol] 31 U/L 9 - 39 [facility] [facility] Work Phone: Bilirubin [Mass/Vol] 0.4 mg/dL 0.0 - 1.2 [facility] [facility] Work Phone: Bilirubin.direct [Mass/Vol] 0.1 mg/dL 0.0 - 0.3 [facility] [facility] Work Phone: Protein [Mass/Vol] 7.5 g/dL 6.4 - 8.2 [facility] [facility] Work Phone: LIPID PANEL (CORONARY RISK 2 )on 12-02-2021 Cholesterol [Mass/Vol] 171 mg/dL Normal 0 - 199 [facility] Comment on above: Result Comment: . AGE [...] dosing. Performed By: #### L IPID #### [address] [id number] Cholesterol in HDL [Mass/Vol] 73.0 mg/dL Normal [facility] Comment on above: Result Comment: . AGE VERY LOW LOW NORMAL HIGH 0-19 Y < 35 < 40 40-45 ---- 20-24 Y ---- < 40 >45 ---- >24 Y ---- < 40 40-60 >60 . Performed By: #### L IPID #### [address] [id number] Cholesterol in LDL [Mass/Vol] 78 mg/dL Normal 0 - 99 [facility] Comment on above: Result Comment: . NEAR BORD AGE DESIRABLE OPTIMAL HIGH HIGH VERY HIGH 0-19 Y 0 - 109 --- 110-129 >/= 130 ---- 20-24 Y 0 - 119 --- 120-159 >/= 160 ---- >24 Y 0 - 99 100-129 130-159 160-189 >/=190 . Performed By: #### L IPID #### [address] [id number] Cholesterol in VLDL [Mass/Vol] 20 mg/dL Normal 0 - 40 [facility] Comment on above: Performed By: #### L IPID #### [address] [id number] Cholesterol.total/Ch olesterol in HDL [Mass ratio] 2.3 {ratio} Normal [facility] Comment on above: Result Comment: REF VALUES DESIRABLE < 3.4 HIGH RISK > 5.0 Performed By: #### L IPID #### [address] [id number] Triglyceride [Mass/Vol] 101 mg/dL Normal 0 - 149 [facility] Comment on above: Result Comment: . AGE [...] dosing. Performed By: #### L IPID #### [address] [id number] Laboratory - Chemistry and C hemistry - challengeon 12-02-2021 Albumin Ql (U) <7.0 See Below [facility] [facility] Work Phone: Comment on above: Reference Range: Not Established Albumin/Creatinine DL <= 20 mg/L (U) [Mass ratio] SEE COMMENT 0.0 - 30.0 [facility] [facility] Work Phone: Comment on above: One or more analytes used in this calculation is outside of the analytical measurement range.Calculation cannot be performed. Creatinine (U) [Mass/Vol] 20.2 mg/dL See Below [facility] [facility] Work Phone: Comment on above: Reference Range: 20. 0 - 320.0 Lipid Panelon 12-02-2021 Cholesterol [Mass/Vol] 171 mg/dL 0 - 199 [facility] [facility] Work Phone: Comment on above: . [...] guidelines reference: NCEP ATPIII Guidelines, JAMILAH 2001, 258:2486-97. Venipuncture immediately after or during the administration of Metamizole may lead to falsely low results. Testing should be performed immediately prior to Metamizole dosing. Cholesterol in HDL [Mass/Vol] 73.0 mg/dL [facility] [facility] Work Phone: Comment on above: . AGE VERY LOW LOW N ORMAL HIGH 0-19 Y < 35 < 40 40-45 ---- 20- 24 Y ---- < 40 >45 ---- >24 Y ---- < 40 40-60 >60. Cholesterol in LDL [Mass/Vol] 78 mg/dL 0 - 99 [facility] [facility] Work Phone: Comment on above: . NEAR BORD AGE HEBERT RABLE OPTIMAL HIGH HIGH VERY HIGH 0-19 Y 0 - 109 --- 110-129 >/= 130 ---- 20-24 Y 0 - 119 --- 120-159 >/= 160 ---- >24 Y 0 - 99 100-129 130-159 160-189 >/=190. Cholesterol.total/Ch olesterol in HDL [Mass ratio] 2.3 {ratio} [facility] [facility] Work Phone: Comment on above: REF VALUESDESIRABLE < 3.4HIGH RISK > 5.0 Triglyceride [Mass/Vol] 101 mg/dL 0 - 149 [facility] [facility] Work Phone: Comment on above: . [...] Lipid Panel 20 mg/dL 0 - 40 [facility] [facility] Work Phone: Procedure (Gastroenterology) on 12-02-2021 [...] and send a report to his doctor. Migdalia Alcazar LPN Active Problems Problems Abnormal finding [...] DIRECTED. Lantus SoloStar 100 UNIT/ML Subcutaneous Solution Pen-dbneggrx65 units BID Metoprolol Tartrate 25 MG Oral [...] Dec 02 2021 10:21AM EST (Author) Normal GRID RENAL FUNCTION PANELon 12-02 Albumin [Mass/Vol] 4.5 g/dL Normal 3.4 - 5.0 [facility] Comment on above: Performed By: #### R ENAL #### [address] [id number] Performed By: #### H EPFP #### [address] [id number] Anion gap [Moles/Vol] 13 mmol/L Normal 10 - 20 [facility] Comment on above: Performed By: #### R ENAL #### [address] [id number] Calcium [Mass/Vol] 9.3 mg/dL Normal 8.6 - 10.3 [facility] Comment on above: Performed By: #### R ENAL #### [address] [id number] Chloride [Moles/Vol] 103 mmol/L Normal 98 - 107 [facility] Comment on above: Performed By: #### R ENAL #### [address] [id number] Creatinine [Mass/Vol] 1.19 mg/dL High 0.50 - 1.05 [facility] Comment on above: Performed By: #### R ENAL #### [address] [id number] GFR/1.73 sq M.predicted among non-blacks MDRD (S/P/Bld) [Vol rate/Area] 50 mL/min/{1.73_m2} Abnormal >90 [facility] Comment on above: Result Comment: CALC ULATIONS OF ESTIMATED GFR ARE PERFORMED USING THE 2020 CKD-EPI STUDY REFIT EQUATION WITHOUT THE RACE VARIABLE FOR THE IDMS-TRACEABLE CREATININE METHODS. https://jasn.asnjournals.org/content/early/ASN.4213450 988 Performed By: #### R ENAL #### [address] [id number] Glucose [Mass/Vol] 64 mg/dL Low 74 - 99 [facility] Comment on above: Performed By: #### R ENAL #### [address] [id number] HCO3 (Bld) [Moles/Vol] 29 mmol/L Normal 21 - 32 [facility] Comment on above: Performed By: #### R ENAL #### [address] [id number] Phosphate [Mass/Vol] 3.4 mg/dL Normal 2.5 - 4.9 [facility] Comment on above: Result Comment: The performance characteristics of phosphorus testing in heparinized plasma have been validated by the individual laboratory site where testing is performed. Testing on heparinized plasma is not approved by the FDA; however, such approval is not necessary. Performed By: #### R ENAL #### [address] [id number] Potassium [Moles/Vol] 4.7 mmol/L Normal 3.5 - 5.3 [facility] Comment on above: Performed By: #### R ENAL #### [address] [id number] Sodium [Moles/Vol] 140 mmol/L Normal 136 - 145 [facility] Comment on above: Performed By: #### R ENAL #### [address] [id number] Urea nitrogen [Mass/Vol] 31 mg/dL High 6 - 23 [facility] Comment on above: Performed By: #### R ENAL #### [address] [id number] Renal Function Panelon 12-02 Anion gap [Moles/Vol] 13 mmol/L 10 - 20 [facility] Work Phone: Calcium [Mass/Vol] 9.3 mg/dL 8.6 - 10.3 [facility] [facility] Work Phone: Chloride [Moles/Vol] 103 mmol/L 98 - 107 [facility] [facility] Work Phone: CO2 [Moles/Vol] 29 mmol/L 21 - 32 [facility] [facility] Work Phone: Creatinine [Mass/Vol] 1.19 mg/dL above high threshold See Below [facility] Work Phone: Comment on above: Reference Range: 0.5 0 - 1.05 Glucose [Mass/Vol] 64 mg/dL below low threshold 74 - 99 [facility] Work Phone: Phosphate [Mass/Vol] 3.4 mg/dL 2.5 - 4.9 [facility] [facility] Work Phone: Comment on above: The performance juliana acteristics of phosphorus testing in heparinized plasma have been validated by the individual laboratory site where testing is performed. Testing on heparinized plasma is not approved by the FDA; however, such approval is not necessary. Potassium [Moles/Vol] 4.7 mmol/L 3.5 - 5.3 [facility] Work Phone: Sodium [Moles/Vol] 140 mmol/L 136 - 145 [facility] Work Phone: Urea nitrogen [Mass/Vol] 31 mg/dL above high threshold 6 - 23 [facility] Work Phone: Renal Function Panel 50 {mL/min/1.73m2} Abnormal >90 [facility] Work Phone: Comment on above: CALCULATIONS OF KELI MATED GFR ARE PERFORMED USING THE 2020 CKD-EPI STUDY REFIT EQUATION WITHOUT THE RACE VARIABLE FOR THE IDMS-TRACEABLE CREATININE METHODS.https://jasn.asnjournals.org/content/early//ASN .8020257783 SEDIMENTATION RATE, ERYTHROC YTEon 12-02-2021 SEDIMENTATION RATE, ERYTHROCYTE 31 mm/h High 0 - 30 [facility] Comment on above: Result Comment: Clemencia cramer note new reference ranges as of 08/11/2021. Ran on alternate instrument Reference Ranges: Males: 0-15 Females: 0-20 Children under 18: 0-10 Performed By: #### E SRWS #### [address] [id number] Sedimentation Rate, Erythroc yteon 12-02-2021 ESR (Bld) [Velocity] 31 mm/h above high threshold 0 - 30 [facility] Work Phone: Comment on above: Please note new refe rence ranges as of 08/11/2021.Ran on alternate instrumentReference Ranges: Males: 0-15 Females: 0-20 Children under 18: 0-10 VITAMIN D, 25-HYDROXYon 08-3 VITAMIN D, 25-HYDROXY 55 ng/mL Normal [facility] Comment on above: Result Comment: . DEFICIENCY: < 20 NG/ML INSUFFICIENCY: 20-29 NG/ML SUFFICIENCY: 30-100 NG/ML THIS ASSAY ACCURATELY QUANTIFIES THE SUM OF VITAMIN D3, 25-HYDROXY AND VIT D2,25-HYDROXY. Performed By: #### V TDOH #### [address] [id number] Vitamin D 25-Hydroxyon 12-02 25-hydroxyvitamin D3 [Mass/Vol] 55 ng/mL [facility] Work Phone: Comment on above: .DEFICIENCY: [...] Services - Lab To Draw (Blood Test); Due:[id number];Ordere d; For:NAFLD (nonalcoholic fatty liver disease); Ordered By:Kenroy Low; KENDALL Liver Ultrasound; Status:Hold For - Exact Date,Scheduling; Requested for:Approx ; Perform:In Office; Order Comments:FIBROSCAN; Due:[id number];Ordere d; For:NAFLD (nonalcoholic fatty liver disease); Ordered By:Kenroy [...] 12-12-2020 HIPS BILATERAL 2 VWS WITH PELVIS [facility] Department of Radiology [address] [place] [id number] Patient Name: LJ DOLL : 1955 Sex: F Age: Race: White Pt. Location: Patient Status: D Ordered Date: 12/12/2020 8:30:00 AM Completed Date: 12/12/2020 08:38 AM Requesting Provider: CHAGO WARREN Attending Provider: CHAGO WARREN Report Copy To: BREE AMBROSE Signs & Symptoms: Z96.642 Presence of left artificial hip joint History: E[place] failed; scanned in RIS Comments: evaluate Exam: [...] report. Electronically signed: James Francisco. Transcribed by: [email or web address], User Resident: ZOLTAN CASTRO Electronically Signed by: JAMES FRANCISCO @ 12/13/2020 10:51 AM I personally read this/these film(s) with this resident Normal [facility] Comment on above: Order Comment: evalu ate HAND LEFT 3 VWSon 04-26-2020 HAND LEFT 3 VWS [facility] Department of Radiology [address] [place] [id number] Patient Name: LJ DOLL : 1955 [...] arthritis. Electronically signed: James Francisco. Transcribed by: [email or web address], User Resident: Electronically Signed by: JAMES FRANCISCO @ 04/27/2020 01:21 PM Normal [facility] Comment on above: Order Comment: Evalu ate WRIST LEFT 3 VWSon 1 WRIST LEFT 3 VWS [facility] Department of Radiology [address] [place] [phone] Patient Name: LJ DOLL : 1955 [...] arthritis. Electronically signed: James Francisco. Transcribed by: [email or web address], User Resident: Electronically Signed by: JAMES FRANCISCO @ 04/27/2020 01:21 PM Normal [facility] Comment on above: Order Comment: Evalu ate ABO/RH GROUP TESTon 10-23-19 ABO TYPE O Normal [facility] Comment on above: Performed By: #### V ERAB ####[address] [address] RH TYPE Positive Normal [facility] Comment on above: Performed By: #### V ERAB ####[address] [address] BASIC METABOLIC PANELon 10-04 Anion gap [Moles/Vol] 9 mmol/L Low - [facility] Comment on above: Performed By: #### B MP ####[address] [address] Calcium [Mass/Vol] 8.7 mg/dL Normal 8.6 - 10.3 [facility] Comment on above: Performed By: #### B MP ####[address] [address] Chloride [Moles/Vol] 110 mmol/L High 98 - 107 [facility] Comment on above: Performed By: #### B MP ####[address] [address] Creatinine [Mass/Vol] 0.94 mg/dL Normal 0.50 - 1.05 [facility] Comment on above: Performed By: #### B MP ####[address] [address] GFR- AM. 73 mL/min/1.73m2 Normal >60 [facility] Comment on above: Result Comment: CALC ULATIONS OF ESTIMATED GFR ARE PERFORMED USING THE MDRD STUDY EQUATION FOR THE IDMS-TRACEABLE CREATININE METHODS. CLIN CHEM 2007;53:766-72 Performed By: #### B MP ####[address] [address] GFR-NON AM. 60 mL/min/1.73m2 Abnormal >60 [facility] Comment on above: Performed By: #### B MP ####[address] [address] Glucose [Mass/Vol] 155 mg/dL High 74 - 99 [facility] Comment on above: Performed By: #### B MP ####[address] [address] HCO3 (Bld) [Moles/Vol] 24 mmol/L Normal 21 - 32 [facility] Comment on above: Performed By: #### B MP ####[address] [address] Potassium [Moles/Vol] 4.4 mmol/L Normal 3.5 - 5.3 [facility] Comment on above: Performed By: #### B MP ####[address] [address] Sodium [Moles/Vol] 139 mmol/L Normal 136 - 145 [facility] Comment on above: Performed By: #### B MP ####[address] [address] Urea nitrogen [Mass/Vol] 27 mg/dL High 6 - 23 [facility] Comment on above: Performed By: #### B MP ####[address] [address] CBCon 10-22-2018 Erythrocyte distribution width (RBC) [Ratio] 14.6 % High 11.5 - 14.5 [facility] Comment on above: Performed By: #### C BC ####[address] [address] Hematocrit (Bld) [Volume fraction] 24.8 % Low 36.0 - 46.0 [facility] Comment on above: Performed By: #### C BC ####[address] [address] Hemoglobin (Bld) [Mass/Vol] 7.4 g/dL Low 12.0 - 16.0 [facility] Comment on above: Performed By: #### C BC ####[address] [address] MCHC (RBC) [Mass/Vol] 29.8 g/dL Low 32.0 - 36.0 [facility] Comment on above: Performed By: #### C BC ####[id number] [place] [address] MCV (RBC) [Entitic vol] 92 fL Normal 80 - 100 [facility] Comment on above: Performed By: #### C BC ####[id number] [place] [address] Nucleated RBC/100 WBC (Bld) [Ratio] 0.0 /100 WBC Normal 0.0 - 0.0 [facility] Comment on above: Performed By: #### C BC ####[address] [address] Platelets (Bld) [#/Vol] 212 10*3/uL Normal 150 - 450 [facility] Comment on above: Performed By: #### C BC ####[address] [address] RBC (Bld) [#/Vol] 2.71 x10E12/L Low 4.00 - 5.20 [facility] Comment on above: Performed By: #### C BC ####[address] [address] WBC (Bld) [#/Vol] 7.2 10*3/uL Normal 4.4 - 11.3 [facility] Comment on above: Performed By: #### C BC ####[address] [address] Discharge [id number] Discharge Profile2 Discharge Orders: Anticipated Discharge Date: Anticipated Discharge [id number] Problem List: Admitting Dx: Gastrointestinal hemorrhage with [...] normal per the patient. She presented to [facility] on September 20 for evaluation of syncopal [...] GI bleeding. Course: Patient was transferred to [facility] ICU and monitored. She didn't show any evidence of bleeding. No melena or hematochezia. Her vitals were stable so she was transferred out of ICU to [facility]. GI saw her there and she underwent EGD on 10/22/18. No bleeding was found. Hiatal hernia was noted. Patient's aspirin, plavix and celebrex were held and stopped at discharged. Since her coronary stent was placed in 2016, she likely doesn't need to be on plavix anymore. Restarting ASA and/or plavix can be discussed with her police guard at her appointment scheduled in November. Her [...] Medication Reconciliation and Orders Completedby Physician Reviewing ProviderJeffrey Crowell MD at 22-Oct-2018 12:24:40 Appointments: Follow-Up Appointment 01: Physician/Dept/Janna Ambrose/primary care Call to Schedule in1 week Follow-Up Appointment 02: Physician/Dept/Janna Rizzo police guard Call to Schedule in4 weeks Electronic Signatures: Jeffrey Crowell) (Signed 22-Oct-2018 12:24) Authored: Discharge Orders, Hospital Course (Home Care/Gold Form), Provider FINAL REVIEW of Orders, Appointments, Gold Form - Wet Chemistry Analyst Summary Last Updated: 22-Oct-2018 12:24 by Jeffrey Crowell) Normal [facility] GLUCOSE-POCTon 10-22-2018 Glucose [Mass/Vol] 146 mg/dL High 74 - 99 [facility] Comment on above: Performed By: #### G BENNIE ####[address] [address] Glucose [Mass/Vol] 160 mg/dL High 74 - 99 [facility] Comment on above: Performed By: #### G BENNIE ####[address] [address] REQUEST-LEUKOREDUCED RED JE LSon 10-22-2018 REQUEST-LEUKOREDUCED RED CELLS ORDER RECD Normal [facility] Comment on above: Performed By: #### O BOBJ DEVELOPER ####[address] [address] BASIC METABOLIC PANELon 10-03 Anion gap [Moles/Vol] 14 mmol/L Normal - [facility] Comment on above: Performed By: #### B MP ####[address] [address] Calcium [Mass/Vol] 8.4 mg/dL Low 8.6 - 10.3 [facility] Comment on above: Performed By: #### B MP ####[address] [address] Chloride [Moles/Vol] 108 mmol/L High 98 - 107 [facility] Comment on above: Performed By: #### B MP ####[address] [address] Creatinine [Mass/Vol] 0.93 mg/dL Normal 0.50 - 1.05 [facility] Comment on above: Performed By: #### B MP ####[address] [address] GFR- AM. 73 mL/min/1.73m2 Normal >60 [facility] Comment on above: Result Comment: CALC ULATIONS OF ESTIMATED GFR ARE PERFORMED USING THE MDRD STUDY EQUATION FOR THE IDMS-TRACEABLE CREATININE METHODS. CLIN CHEM 2007;53:766-72 Performed By: #### B MP ####[address] [address] GFR-NON AM. 60 mL/min/1.73m2 Abnormal >60 [facility] Comment on above: Performed By: #### B MP ####[address] [address] Glucose [Mass/Vol] 118 mg/dL High 74 - 99 [facility] Comment on above: Performed By: #### B MP ####[address] [address] HCO3 (Bld) [Moles/Vol] 22 mmol/L Normal 21 - 32 [facility] Comment on above: Performed By: #### B MP ####[address] [address] Potassium [Moles/Vol] 4.2 mmol/L Normal 3.5 - 5.3 [facility] Comment on above: Performed By: #### B MP ####[address] [address] Sodium [Moles/Vol] 140 mmol/L Normal 136 - 145 [facility] Comment on above: Performed By: #### B MP ####[address] [address] Urea nitrogen [Mass/Vol] 36 mg/dL High 6 - 23 [facility] Comment on above: Performed By: #### B MP ####[address] [address] CBCon 10-21-2018 Erythrocyte distribution width (RBC) [Ratio] 14.6 % High 11.5 - 14.5 [facility] Comment on above: Performed By: #### C BC ####[address] [address] Hematocrit (Bld) [Volume fraction] 26.3 % Low 36.0 - 46.0 [facility] Comment on above: Performed By: #### C BC ####[address] [address] Hemoglobin (Bld) [Mass/Vol] 8.0 g/dL Low 12.0 - 16.0 [facility] Comment on above: Performed By: #### C BC ####[address] [address] MCHC (RBC) [Mass/Vol] 30.4 g/dL Low 32.0 - 36.0 [facility] Comment on above: Performed By: #### C BC ####[address] [address] MCV (RBC) [Entitic vol] 92 fL Normal 80 - 100 [facility] Comment on above: Performed By: #### C BC ####[address] [address] Nucleated RBC/100 WBC (Bld) [Ratio] 0.0 /100 WBC Normal 0.0 - 0.0 [facility] Comment on above: Performed By: #### C BC ####[address] [address] Platelets (Bld) [#/Vol] 244 10*3/uL Normal 150 - 450 [facility] Comment on above: Performed By: #### C BC ####[address] [address] RBC (Bld) [#/Vol] 2.86 x10E12/L Low 4.00 - 5.20 [facility] Comment on above: Performed By: #### C BC ####[address] [place] [address] WBC (Bld) [#/Vol] 8.6 10*3/uL Normal 4.4 - 11.3 [facility] Comment on above: Performed By: #### C ####[facility] [facility] [address] Consult-Gastroenterologyon 0 10-21-2018 Consult-Gastroentero logy Service: Service: Gastroenterology Consult: Consult requested by [...] Mood Alteration Objective: Objective Information: T PRBPSpO2 [id number]/539 8% Date/Time10/21 8: 11: 11: 11: 8:00 Range(36.3C [...] --EGD tomorrow AM Dr. Chacorta Robledo MD [facility] Change Director Electronic Signatures: Chacorta Robledo () (Signed 21-Oct-2018 15:15) Authored: Service, History of Present Illness, Review Family/Social History and ROS, Allergies, Objective, Assessment/Recommend ations, Signature/Cosignatur e/Attestation Last Updated: 21-Oct-2018 15:15 by Chacorta Robledo) Normal [facility] Daily Progress Note - Critic ruth ann Portillo 10-21-2018 Daily Progress Note - Critical Care Subjective Data: ID Statement: LJ DOLL is a 63 year old Female who is Hospital Day # 2 and ICU Day #2. Patient seen and examined. Hemodynamically stable. On room air. She states she has occasional abdominal discomfort. She denies chest pain. She denies shortness of breath. Objective Data: Objective Information T PRBPSpO2 [id number]/619 7% Date/Time10/21 3: 5: 5: 5: 5:00 Range(36.3C [...] reviewed these laboratory results: Glucose_POCT Trending View [id number] 05:27:00 20-Oct-2018 23:24:00 20-Oct-2018 16:44:00 Glucose-BSQP082 H 114 H 120 H Complete Blood Count Trending View [id number] 04:11:00 20-Oct-2018 15:31:00 White Blood Cell Count8.6 7.7 Nucleated Erythrocyte Count0.0 0.0 Red Blood Cell Count2.86 L 2.76 L HGB8.0 L 7.7 L HCT26.3 L 25.7 L MCV92 93 MCHC30.4 L 30.0 L MXO807 241 RDW-CV14.6 H 14.6 H Basic Metabolic [...] [facility] who will accept the patient to [facility]. Code Status: Code StatusFull Code Signature/Cosignatur e/Attestation: Note Completion: Critical Care PatientI have reviewed [...] for greater detail. Electronic Signatures: Homero Enriquez (POLYMER CHEMIST-DIVISION SERGEANT) (Signed 21-Oct-2018 12:03) Authored: Subjective Data, Objective Data, Assessment and Plan, Signature/Cosignatur e/Attestation Last Updated: 21-Oct-2018 12:03 by Homero Enriquez (POLYMER CHEMIST-DIVISION SERGEANT) Normal [facility] GLUCOSE-POCTon 10-21-2018 Glucose [Mass/Vol] 180 mg/dL High 74 - 99 [facility] Comment on above: Performed By: #### G BENNIE ####[address] [address] Glucose [Mass/Vol] 166 mg/dL High 74 - 99 [facility] Comment on above: Performed By: #### G BENNIE ####[address] [address] Glucose [Mass/Vol] 174 mg/dL High 74 - 99 [facility] Comment on above: Performed By: #### G BENNIE ####[address] [address] Glucose [Mass/Vol] 129 mg/dL High 74 - 99 [facility] Comment on above: Performed By: #### G BENNIE ####[address] [address] Glucose [Mass/Vol] 114 mg/dL High 74 - 99 [facility] Comment on above: Performed By: #### G BENNIE ####[address] [address] HEMOGLOBIN A1Con 10-21-2018 HbA1c (Bld) [Mass fraction] 6.8 % Normal [facility] Comment on above: Result Comment: Diag nosis of Diabetes-Adults Non-Diabetic: < or = 5.6% Increased risk for developing diabetes: 5.7-6.4% Diagnostic of diabetes: > or = 6.5% . Monitoring of Diabetes Age (y) Therapeutic Goal (%) Adults: >18 <7.0 Pediatrics: 13-18 <7.5 7-12 <8.0 0- 6 7.5-8.5 [employer]. Diabetes Care 33(S1), Apr 2009. Performed By: #### H BA1E ####[address] [address] HbA1c (Bld) [Mass fraction] 148 MG/DL Normal [facility] Comment on above: Performed By: #### H BA1E ####[address] [address] HGB + HCTon 10-21-2018 Hematocrit (Bld) [Volume fraction] 25.1 % Low 36.0 - 46.0 [facility] Comment on above: Performed By: #### H H ####[address] [address] Hemoglobin (Bld) [Mass/Vol] 7.9 g/dL Low 12.0 - 16.0 [facility] Comment on above: Performed By: #### H H ####[address] [address] MAGNESIUMon 10-21-2018 Magnesium [Mass/Vol] 1.80 mg/dL Normal 1.60 - 2.40 [facility] Comment on above: Performed By: #### M G ####[address] [address] PHOSPHORUSon 10-21-2018 Phosphate [Mass/Vol] 2.1 mg/dL Low 2.5 - 4.9 [facility] Comment on above: Result Comment: The performance characteristics of phosphorus testing in heparinized plasma have been validated by the individual laboratory site where testing is performed. Testing on heparinized plasma is not approved by the FDA; however, such approval is not necessary. Performed By: #### P HOS ####[address] [address] Preop Checkliston 10-21-2018 Preop Checklist Preop Checklist: Preop Checklist: Arrival [id number] Arrival Time07:30 Procedure Typeesophago - gastro-duodenoscopy NPO [id number] NPO Commentnpo at mid night ID Band [...] Communication: Language / CommunicationEnglish Electronic Signatures: Glory Wilde) (Signed 21-Oct-2018 22:04) Authored: Preop Checklist Last Updated: 21-Oct-2018 22:04 by Glory Wilde (TIFFANIE) [facility] Admission Risk Screen - Adul ton 10-20-2018 [...] Falls Screen: Type of Assessmentadmission Moderate Risk Factorsdizziness/syn cope High Risk Factorsrecent falls Risk for Injury Associated with Fallnone Fall Risk Conclusionhigh falls risk with low risk for associated injury [place] Safety InterventionsWDL *orient to call system *instruct [...] Communicatenone Learning Preferencesaudio Cultural Considerationsnone Developmental Considerationsnone Lutheran Considerationsnone Learning Assessment (Other Learner): Other learner [...] Spiritual Screen: Are there any cultural, spiritual, taoism practices/values/nee ds that are important for us to knowno Do you want a visit/item from Pastoral Careno Would you like your Sizing Machine Tender/Admission Discharge Rn notifiedno CAGE: Is this an injured patient at a Trauma Center ([facility]/[place]/[facility]): no Vaccinations: Vaccination - Influenza Vaccination Screen: [...] 20-Oct-2018 11:00 by Judy Monet (RN) Normal [facility] CBCon 10-20-2018 Erythrocyte distribution width (RBC) [Ratio] 14.6 % High 11.5 - 14.5 [facility] Comment on above: Performed By: #### C BC #### [place] [address] Hematocrit (Bld) [Volume fraction] 25.7 % Low 36.0 - 46.0 [facility] Comment on above: Performed By: #### C BC #### [address] [address] Hemoglobin (Bld) [Mass/Vol] 7.7 g/dL Low 12.0 - 16.0 [facility] Comment on above: Performed By: #### C BC #### [address] [address] MCHC (RBC) [Mass/Vol] 30.0 g/dL Low 32.0 - 36.0 [facility] Comment on above: Performed By: #### C BC #### [address] [address] MCV (RBC) [Entitic vol] 93 fL Normal 80 - 100 [facility] Comment on above: Performed By: #### C BC #### [address] [address] Nucleated RBC/100 WBC (Bld) [Ratio] 0.0 /100 WBC Normal 0.0 - 0.0 [facility] Comment on above: Performed By: #### C BC #### [address] [address] Platelets (Bld) [#/Vol] 241 10*3/uL Normal 150 - 450 [facility] Comment on above: Performed By: #### C BC #### [address] [address] RBC (Bld) [#/Vol] 2.76 x10E12/L Low 4.00 - 5.20 [facility] Comment on above: Performed By: #### C BC #### [address] [address] WBC (Bld) [#/Vol] 7.7 10*3/uL Normal 4.4 - 11.3 [facility] Comment on above: Performed By: #### C BC #### [address] [address] COMPREHENSIVE PANELon 2018 Albumin [Mass/Vol] 3.6 g/dL Normal 3.4 - 5.0 [facility] Comment on above: Performed By: #### C MP ####[address] [address] ALP [Catalytic activity/Vol] 91 U/L Normal 33 - 136 [facility] Comment on above: Performed By: #### C MP ####[address] [address] ALT [Catalytic activity/Vol] 34 U/L Normal 7 - 45 [facility] Comment on above: Result Comment: Shannon ents treated with Sulfasalazine may generate falsely decreased results for ALT. Performed By: #### C MP ####[address] [address] Anion gap [Moles/Vol] 11 mmol/L Normal 10 - 20 [facility] Comment on above: Performed By: #### C MP ####[address] [address] AST [Catalytic activity/Vol] 22 U/L Normal 9 - 39 [facility] Comment on above: Performed By: #### C MP ####[address] [address] Bilirubin [Mass/Vol] 0.2 mg/dL Normal 0.0 - 1.2 [facility] Comment on above: Performed By: #### C MP ####[address] [address] Calcium [Mass/Vol] 8.4 mg/dL Low 8.6 - 10.3 [facility] Comment on above: Performed By: #### C MP ####[address] [address] Chloride [Moles/Vol] 111 mmol/L High 98 - 107 [facility] Comment on above: Performed By: #### C MP ####[address] [address] Creatinine [Mass/Vol] 0.92 mg/dL Normal 0.50 - 1.05 [facility] Comment on above: Performed By: #### C MP ####[address] [address] GFR- AM. >60 Normal >60 [facility] Comment on above: Result Comment: CALC ULATIONS OF ESTIMATED GFR ARE PERFORMED USING THE MDRD STUDY EQUATION FOR THE IDMS-TRACEABLE CREATININE METHODS. CLIN CHEM 2007;53:766-72 Performed By: #### C MP ####[address] [address] GFR-NON AM. >60 Normal >60 [facility] Comment on above: Performed By: #### C MP ####[address] [address] [address] Glucose [Mass/Vol] 120 mg/dL High 74 - 99 [facility] Comment on above: Performed By: #### C MP ####[facility] [facility] [place] [address] HCO3 (Bld) [Moles/Vol] 22 mmol/L Normal 21 - 32 [facility] Comment on above: Performed By: #### C MP ####[facility] [facility] [place] [place] [address] Potassium [Moles/Vol] 4.7 mmol/L Normal 3.5 - 5.3 [facility] Comment on above: Performed By: #### C MP ####[facility] [facility] [place] [address] Protein [Mass/Vol] 6.0 g/dL Low 6.4 - 8.2 [facility] Comment on above: Performed By: #### C MP ####[address] [place] [address] Sodium [Moles/Vol] 139 mmol/L Normal 136 - 145 [facility] Comment on above: Performed By: #### C MP ####[facility] [place] [address].[place] [address] Urea nitrogen [Mass/Vol] 45 mg/dL High 6 - 23 [facility] Comment on above: Performed By: #### C MP ####[address] [place] [address] Albumin [Mass/Vol] Canceled Normal [facility] Comment on above: Order Comment: TEST COMPREHENSIVE PANEL WAS CANCELLED, 10/20/2018 16:05 ?Cancel Reason: Cancelled. Performed By: #### C MP #### [facility] [address] [facility] [place] [address] ALP [Catalytic activity/Vol] Canceled Normal [facility] Comment on above: Order Comment: TEST COMPREHENSIVE PANEL WAS CANCELLED, 10/20/2018 16:05 ?Cancel Reason: Cancelled. Performed By: #### C MP #### [facility] [address] [facility] [place] [address] ALT [Catalytic activity/Vol] Canceled Normal [facility] Comment on above: Order Comment: TEST COMPREHENSIVE PANEL WAS CANCELLED, 10/20/2018 16:05 ?Cancel Reason: Cancelled. Result Comment: Shannon ents treated with Sulfasalazine may generate falsely decreased results for ALT. Performed By: #### C MP #### [address] [place] [address] Anion gap [Moles/Vol] Canceled Normal [facility] Comment on above: Order Comment: TEST COMPREHENSIVE PANEL WAS CANCELLED, 10/20/2018 16:05 ?Cancel Reason: Cancelled. Performed By: #### C MP #### [address] [place] [address] AST [Catalytic activity/Vol] Canceled Normal [facility] Comment on above: Order Comment: TEST COMPREHENSIVE PANEL WAS CANCELLED, 10/20/2018 16:05 ?Cancel Reason: Cancelled. Performed By: #### C MP #### [address] [place] [address] Bilirubin [Mass/Vol] Canceled Normal [facility] Comment on above: Order Comment: TEST COMPREHENSIVE PANEL WAS CANCELLED, 10/20/2018 16:05 ?Cancel Reason: Cancelled. Performed By: #### C MP #### [address] [place] [address] Calcium [Mass/Vol] Canceled Normal [facility] Comment on above: Order Comment: TEST COMPREHENSIVE PANEL WAS CANCELLED, 10/20/2018 16:05 ?Cancel Reason: Cancelled. Performed By: #### C MP #### [address] [place] [address] Chloride [Moles/Vol] Canceled Normal [facility] Comment on above: Order Comment: TEST COMPREHENSIVE PANEL WAS CANCELLED, 10/20/2018 16:05 ?Cancel Reason: Cancelled. Performed By: #### C MP #### [address] [place] [address] Creatinine [Mass/Vol] Canceled Normal [facility] Comment on above: Order Comment: TEST COMPREHENSIVE PANEL WAS CANCELLED, 10/20/2018 16:05 ?Cancel Reason: Cancelled. Performed By: #### C MP #### [address] [place] [address] GFR- AM. Canceled Normal [facility] Comment on above: Order Comment: TEST COMPREHENSIVE PANEL WAS CANCELLED, 10/20/2018 16:05 ?Cancel Reason: Cancelled. Result Comment: CALC ULATIONS OF ESTIMATED GFR ARE PERFORMED USING THE MDRD STUDY EQUATION FOR THE IDMS-TRACEABLE CREATININE METHODS. CLIN CHEM 2007;53:766-72 Performed By: #### C MP #### [address] [place] [address] GFR-NON AM. Canceled Normal [facility] Comment on above: Order Comment: TEST COMPREHENSIVE PANEL WAS CANCELLED, 10/20/2018 16:05 ?Cancel Reason: Cancelled. Performed By: #### C MP #### [address] [place] [address] Glucose [Mass/Vol] Canceled Normal [facility] Comment on above: Order Comment: TEST COMPREHENSIVE PANEL WAS CANCELLED, 10/20/2018 16:05 ?Cancel Reason: Cancelled. Performed By: #### C MP #### [address] [place] [address] HCO3 (Bld) [Moles/Vol] Canceled Normal [facility] Comment on above: Order Comment: TEST COMPREHENSIVE PANEL WAS CANCELLED, 10/20/2018 16:05 ?Cancel Reason: Cancelled. Performed By: #### C MP #### [address] [place] [address] Potassium [Moles/Vol] Canceled Normal [facility] Comment on above: Order Comment: TEST COMPREHENSIVE PANEL WAS CANCELLED, 10/20/2018 16:05 ?Cancel Reason: Cancelled. Performed By: #### C MP #### [address] [place] [address] Protein [Mass/Vol] Canceled Normal [facility] Comment on above: Order Comment: TEST COMPREHENSIVE PANEL WAS CANCELLED, 10/20/2018 16:05 ?Cancel Reason: Cancelled. Performed By: #### C MP #### [place] [id number] [place] [address] Sodium [Moles/Vol] Canceled Normal [facility] Comment on above: Order Comment: TEST COMPREHENSIVE PANEL WAS CANCELLED, 10/20/2018 16:05 ?Cancel Reason: Cancelled. Performed By: #### C MP #### [address] [place] [address] Urea nitrogen [Mass/Vol] Canceled Normal [facility] Comment on above: Order Comment: TEST COMPREHENSIVE PANEL WAS CANCELLED, 10/20/2018 16:05 ?Cancel Reason: Cancelled. Performed By: #### C MP #### [address] [place] [address] Clinical Intervention - Nguyễn talavera 10-20-2018 Clinical Intervention - Pharmacy Pharmacist's Clinical Intervention: Is this intervention medication reconciliation related: Yes, HISTORY Electronic Signatures: Helena Guillen (SanteVet) (Signed 20-Oct-2018 12:41) Authored: Pharmacist's Clinical Intervention Last Updated: 20-Oct-2018 12:41 by Helena Guillen (SanteVet) [facility] Clinical Intervention - Pharmacy Pharmacist's Clinical Intervention: Is this intervention medication reconciliation related: Yes, ALLERGY Electronic Signatures: Helena Guillen (SanteVet) (Signed 20-Oct-2018 12:40) Authored: Pharmacist's Clinical Intervention Last Updated: 20-Oct-2018 12:40 by Helena Guillen (SanteVet) [facility] Discharge Planning Noteon Discharge Planning Note Discharge Needs Assessment: Discharge Planning Assessment [id number] Readmission Within the Last 30 Daysno previous [...] Discharge Planning: Discharge Planning: Patient admitted from [place] to ICU for a syncopal episode 10/21/18 1225- Met with pt at bedside, she lives with her and daughter in a 1 story home, reports being independent, drives, uses a cane as needed. Pt has hx of DM II- has a working glucose meter and supplies. PCP is Dr Ambrose, seen 3 wks ago. Preferred pharmacy is [facility] in [place], reports taking her medications as prescribed and is able to afford them. Pt plans to return home, denies any needs. Ritu HERRING TCC Final Disposition/Discharg e: Disposition/Discharg e Information: Discharge/Transfer Information: Discharge/Transfer Date/[id number] Discharged Accompanied Byspouse Discharge Modewheelchair Transportation Methodprivate car Valuables/Medication s/Belongings Returnedyes Final DispositionHome Electronic Signatures: Judy Monet (NEVAEH) (Signed 20-Oct-2018 11:07) Authored: Discharge Planning Note Ritu Ruiz (INVESTIGATION DIVISION LIEUTENANT) (Signed 21-Oct-2018 13:40) Authored: Discharge Planning Note Sharmin Mayfield (SHYANN) (Signed 22-Oct-2018 16:42) Authored: Final Disposition/Discharg e Last Updated: 22-Oct-2018 16:42 by Sharmin Mayfield (SHYANN) References: 1. Data Referenced From 5. Education 10/20/2018 10:55 AM 2. Data Referenced From Admission Risk Screen - Adult 10/20/2018 10:55 AM Normal [facility] EMR ADDONon 10-20-2018 ADDON CONFIRMATION REQUEST REC'D Normal [facility] Comment on above: Performed By: #### E MRAD #### [facility] [address] [facility] [place] [address] GLUCOSE-POCTon 10-20-2018 Glucose [Mass/Vol] 120 mg/dL High 74 - 99 [facility] Comment on above: Performed By: #### G BENNIE ####[facility] [facility] [place] [address] History and Physical - Nanette Portillo 10-20-2018 [...] normal per the patient. She presented to [facility] on September 20 for evaluation of syncopal [...] Anemia, Bruising, Easy Bleeding, Night Sweats, Petechiae Allergic/Immunologic : NEGATIVE: Anaphylaxis, Itchy/ Teary Eyes, Itching, Sneezing, Swelling Objective: Objective Information: Objective Information T PRBPSpO2 [id number]/609 8% Date/Time10/20 10: 12: 12: 12: 12:00 Range(36.5C - 36.5C ) (82 - 96 ) (18 - 40 ) (122 - 175 )/ (42 - 70 ) (97% - 99% ) Pain reported at 10/20 10:45: 3 = Mild Weights 10/20 11:01: Weight in kg (Weight (kg)) 99 10/20 11:01: Weight in lbs ((lbs)) 218.2 10/20 11:: BMI (kg/m2) (BMI (kg/m2)) 38.671 Physical Exam: [...] significant lymphadenopathy Psychological: Appropriate mood and behavior Pilot [place] T Coma Scale: Best Eye Response: (E4) spontaneous Best Motor Response: (M6) obeys commands Best Verbal Response: (V5) oriented Pilot [place] Score: 15 Recent Lab Results: Results: Assessment [...] time-55 minutes Code Status: Code StatusFull Code Signatures/Attestati on/Certification: Note Completion: AGA StatementI am solely responsible [...] Admit to Inpatient Adult Community Transfer to, [facility] Intensive Care Unit Admitting Diagnosis, K92.0 Gastrointestinal hemorrhage with hematemesis , Attending Provider Ildefonso Starks David Admission Order Certification order has been placed by Ildefonso Starks Electronic Signatures: Ildefonso Starks) (Signed 20-Oct-2018 23:06) Authored: Signatures/Attestati on/Certification Co-Signer: Service, History of Present Illness, Comorbidities, Family History, Social History, Allergies, Medications Prior to Admission, Review of Systems, Objective, Assessment and Plan, Signatures/Attestati on/Certification Homero Enriquez (POLYMER CHEMIST-DIVISION SERGEANT) (Signed 21-Oct-2018 05:40) Authored: Service, History of Present Illness, Comorbidities, Family History, Social History, Allergies, Medications Prior to Admission, Review of Systems, Objective, Assessment and Plan, Signatures/Attestati on/Certification Last Updated: 21-Oct-2018 05:40 by Homero Enriquez (POLYMER CHEMIST-DIVISION SERGEANT) Normal [facility] PT/INRon 10-20-2018 INR Coag (PPP) [Relative time] 1.0 {INR} Normal 0.9 - 1.1 [facility] Comment on above: Performed By: #### P TINR ####[facility] [facility] [place] [address] PT Coag (PPP) [Time] 11.5 s Normal 9.7 - 12.7 [facility] Comment on above: Performed By: #### P TINR ####[facility] [facility] [place] [address] INR Coag (PPP) [Relative time] Canceled Normal [facility] Comment on above: Order Comment: TEST PT/INR WAS CANCELLED, 10/20/2018 16:05 ?Cancel Reason: Cancelled. Performed By: #### P TINR #### [facility] [address] [facility] [place] [address] PT Coag (PPP) [Time] Canceled Normal [facility] Comment on above: Order Comment: TEST PT/INR WAS CANCELLED, 10/20/2018 16:05 ?Cancel Reason: Cancelled. Performed By: #### P TINR #### [address] [place] [address] Patient Profile - Adult v2on 10-20-2018 Patient Profile - Adult v2 Profile: Initial Info: How to be AddressedBev Spoken Language PreferredEnglish (1) Are you currently using the Personal Electronic Health Record or clickTRUEno Are you interested in learning more about [facility] for the management of your healthdeclined Stated Reason for AdmissionSyncope Limitations on Visitors/Phone [facility] Statusretired Current or Previous Servicenone Patient Belongingssent home Medications Brought to Hospitalno History of MDROno General Health: Weight in kg99 kilogram(s) Weight in vao082.2 pound(s) Height in feet5 feet Height in inches3 inch(es) Height in cm160 centimeter(s) BMI (kg/m2)38.671 square meter Weight Methodactual (measured) Scale Typebed Height Methodstated Blood Avoidance/Restrictio nsnone Previous Transfusion Reactionno Feel Rested Upon Awakeningyes Sleep Aids/Routinenone RSP Based Care: How would you like to participate in your careActive What is the number one concern for you during this hospitalizationgetti ng better What is the most important thing we can do to support you during this hospitalizationgo home Is there anything we need to know to best care for youget discharged Recent Change in Mood/Behaviordenies Major Change/Loss/Stressor /Fearsdenies Techniques to [place] with Loss/Stress/Changeme ditation Substance: Current or Former Substance Use never: Cigarette/Tobacco, e-Cigarette/Vaping(1 ), Alcohol(1), Street Drugs(1) Health Mgmt: Symptoms/Conditions Managed at Homecardiovascular; gastrointestinal; musculoskeletal Cardiovascular Symptoms/Conditionsv alvular disease Cardiovascular Management Strategiesdiet modification; exercise; medication therapy Cardiovascular Managementmanaged Gastrointestinal Symptoms/Conditionsr eflux/heartburn Gastrointestinal Management Strategiesdiet modification; medication therapy Gastrointestinal Managementmanaged Musculoskeletal Symptoms/Conditionso steoarthritis Musculoskeletal Management Strategiesexercise Musculoskeletal Managementmanaged Barriers to Managing Healthnone Relationship/Environ : Primary Source of Support/Comfortchild (suma) Lives Withother relative(s); spouse Living Arrangementshouse Significant Exposurenone Resource/Environment al Concernsnone [facility] Anticipated at Transitionnone Significant IndicatorsComplete Information [...] - Preop v2 10/05/2018 7:24 AM Normal [facility] TROPONIN Ion 10-20-2018 Troponin I.cardiac [Mass/Vol] Canceled Normal [facility] Comment on above: Order Comment: per Nolvia [...] is performed using different testing methodology at [facility] than at other [facility]. Direct result comparisons should only be made within the same method. Performed By: #### T ROP2 ####[address] [address] Troponin I.cardiac [Mass/Vol] ng/mL Normal 0.00 - 0.03 [facility] Comment on above: Result Comment: LESS THAN [...] is performed using different testing methodology at [facility] than at other [facility]. Direct result comparisons should only be made within the same method. Performed By: #### T ROP2 ####[address] [address] Troponin I.cardiac [Mass/Vol] Canceled Normal [facility] Comment on above: Order Comment: TEST TROPONIN [...] is performed using different testing methodology at [facility] than at other [facility]. Direct result comparisons should only be made within the same method. Performed By: #### T ROP2 ####[address] [address] TYPE + SCREENon 10-20-2018 ABO TYPE O Normal [facility] Comment on above: Performed By: #### T +S ####[address] [address] RH TYPE Positive Normal [facility] Comment on above: Performed By: #### T +S ####[facility] [place] [address] ABO TYPE Canceled Normal [facility] Comment on above: Order Comment: TEST TYPE + SCREEN WAS CANCELLED, 10/20/2018 16:05 ?Cancel Reason: Cancelled. Performed By: #### T +S #### [facility] [address] [place] [address] RH TYPE Canceled Normal [facility] Comment on above: Order Comment: TEST TYPE + SCREEN WAS CANCELLED, 10/20/2018 16:05 ?Cancel Reason: Cancelled. Performed By: #### T +S #### [address] [place] [address] Alk Phos Isoenzymeson 2017 Alk-Phosphatase Bone 60 U/L High 0-55 [facility] Comment on above: Performed By: #### 1 [id number] #### [facility] [address] [place] [address] Alk-Phosphatase Liver 82 U/L Normal 0-94 [facility] Comment on above: Result Comment: INTE RPRETIVE INFORMATION: Alk-Phosphatase Liver Calc Bone Specific Alkaline Phosphatase (9512886) and 5'-nucleotidase (7778102) may be useful in identifying disorders of bone and liver, respectively. Performed By: #### 1 [id number] #### [facility] [address] [place] [address] Alk-Phosphatase Other 0 U/L Normal [facility] Comment on above: Result Comment: Perf ormed by [employer], [address] [facility] [place] [address] [email or web address], Sedrick Sue MD - Lab. Director Performed By: #### 1 [id number] #### [facility] [address] [place] [address] ALP enzyme act/vol 142 U/L High 40-120 [facility] Comment on above: Performed By: #### 1 [id number] #### [facility] [address] [place] [address] Cddoc-3-Mrmicvuzyrs, Totalon 07-28-2017 Ggfuw-8-Jguhbtchoyg, Total 125 mg/dL Normal 84-218 [facility] Anti-Nuclear Ab Titer w/ALIYAH Panelon 07-28-2017 Anti-Nuclear Ab (GILL) Pattern HOMOGENEOUS Normal [facility] Anti-Nuclear Ab Titer 1:40 Normal [facility] Centromere (ALIYAH) Ab, IgG 0.2 AI Normal [facility] Comment on above: Result Comment: REF VALUES < 1.0 = NEGATIVE >=1.0 = POSITIVE Chromatin (ALIYAH) Ab, IgG <0.2 Normal [facility] Comment on above: Result Comment: REF VALUES < 1.0 = NEGATIVE >=1.0 = POSITIVE dsDNA Ab, IgG <1.0 [facility] Comment on above: Result Comment: REF VALUES NEGATIVE: <= 4 IU/ML EQUIVOCAL: 5- 9 IU/ML POSITIVE: >=10 IU/ML PARISA-1 (ALIYAH) Ab, IgG <0.2 [facility] Comment on above: Result Comment: REF VALUES < 1.0 = NEGATIVE >=1.0 = POSITIVE Ribonucleic Prot (ALIYAH) Ab, IgG <0.2 Normal [facility] Comment on above: Result Comment: REF VALUES < 1.0 = NEGATIVE >=1.0 = POSITIVE Ribosomal P Prot (ALIYAH) Ab, IgG <0.2 [facility] Comment on above: Result Comment: REF VALUES < 1.0 = NEGATIVE >=1.0 = POSITIVE Scleroderma (Scl-70) (ALIYAH) Ab, IgG <0.2 [facility] Comment on above: Result Comment: REF VALUES < 1.0 = NEGATIVE >=1.0 = POSITIVE Alcazar (ALIYAH) Ab, IgG <0.2 Normal [facility] Comment on above: Result Comment: REF VALUES < 1.0 = NEGATIVE >=1.0 = POSITIVE Alcazar/CONTROL CLERK SUBASSEMBLY (ALIYAH) Ab, IgG <0.2 Normal [facility] Comment on above: Result Comment: REF VALUES < 1.0 = NEGATIVE >=1.0 = POSITIVE SSA (Ro) (ALIYAH) Ab, IgG <0.2 Normal [facility] Comment on above: Result Comment: REF VALUES < 1.0 = NEGATIVE >=1.0 = POSITIVE SSB (La) (ALIYAH) Ab, IgG <0.2 Normal [facility] Comment on above: Result Comment: REF VALUES < 1.0 = NEGATIVE >=1.0 = POSITIVE Anti-Nuclear Ab W/Rfx to Tit er, ENAon 07-28-2017 Anti-Nuclear Ab, W/Rfx to Titer Positive Abnormal NEGATIVE [facility] Ceruloplasminon 07-28-2017 Ceruloplasmin 30 mg/dL Normal 20-60 [facility] Ferritinon 07-28-2017 Ferritin mass conc 348 ng/mL High 8-150 [facility] Comment on above: Performed By: #### 1 [id number] #### [facility] [address] [place] [address] Hepatic Function Panelon Albumin mass conc 4.1 g/dL Normal 3.4-5.0 [facility] Comment on above: Performed By: #### 1 [id number] #### [facility] [address] [place] [address] Albumin/Globulin mass ratio 1.4 {ratio} Normal 0.9-2.4 [facility] Comment on above: Performed By: #### 1 [id number] #### [facility] [address] [place] [address] ALP enzyme act/vol 141 U/L High 45-117 [facility] Comment on above: Performed By: #### 1 [id number] #### [facility] [address] [place] [address] ALT enzyme act/vol 44 U/L Normal 7-45 [facility] Comment on above: Performed By: #### 1 [id number] #### [facility] [address] [place] [address] AST enzyme act/vol 29 U/L Normal 13-39 [facility] Comment on above: Performed By: #### 1 [id number] #### [facility] [address] [place] [address] Bilirubin mass conc 0.3 mg/dL Normal 0.0-1.2 [facility] Comment on above: Performed By: #### 1 [id number] #### [facility] [address] [place] [address] Bilirubin.direct mass conc 0.1 mg/dL Normal 0.0-0.3 [facility] Comment on above: Performed By: #### 1 [id number] #### [facility] [address] [place] [address] Protein mass conc 7.0 g/dL Normal 6.4-8.2 [facility] Comment on above: Performed By: #### 1 [id number] #### [facility] [address] [place] [address] Hepatitis A Total Abon 07-28 Hepatitis A Total Ab REACTIVE Abnormal NONREACTIVE [facility] Comment on above: Result Comment: Shannon ents receiving more than 5 mg/day of biotin may have interf in test results. A sample should be taken no sooner than eight after previous dose. Contact [phone] for additional infor Hepatitis B Core Antibodies, Totalon 07-28-2017 Hepatitis B Core Antibodies, Total NONREACTIVE Normal NONREACTIVE [facility] Comment on above: Result Comment: Shannon ents receiving more than 5 mg/day of biotin may have interf in test results. A sample should be taken no sooner than eight after previous dose. Contact [phone] for additional infor Hepatitis B Surface Abon Hepatitis B Surface Ab <3.1 Normal <10 [facility] Comment on above: Result Comment: INTE RPRETIVE CRITERIA: <10 mIU/mL....NONREACTIVE >=10 mIU/mL...REACTIVE . Patients receiving more than 5 mg/day of biotin may have interf in test results. A sample should be taken no sooner than eight after previous dose. Contact [phone] for additional infor Hepatitis B Surface Antigeno n 07-28-2017 Hepatitis B Surface Antigen NONREACTIVE Normal NONREACTIVE [facility] Comment on above: Result Comment: Shannon ents receiving more than 5 mg/day of biotin may have interf in test results. A sample should be taken no sooner than eight after previous dose. Contact [phone] for additional infor Hepatitis C Antibody w/rfx t o Confirmon 07-28-2017 Hepatitis C Antibody NON-REACTIVE Normal NONREACTIVE [facility] Comment on above: Result Comment: Shannon ents receiving more than 5 mg/day of biotin may have interf in test results. A sample should be taken no sooner than eight after previous dose. Contact [phone] for additional infor Iron Profileon 07-28-2017 Iron Binding Capacity 331 ug/dL Normal 250-565 [facility] Comment on above: Performed By: #### 1 [id number] #### [facility] [address] [place] [address] Iron mass conc 72 ug/dL Normal 35-150 [facility] Comment on above: Performed By: #### 1 [id number] #### [facility] [address] [place] [address] Percent Saturation 22 % Normal 14-27 [facility] Comment on above: Performed By: #### 1 [id number] #### [facility] [address] [place] [address] Unbound Iron Binding Capacity 259 ug/dL Normal 90-340 [facility] Comment on above: Performed By: #### [id number] #### [facility] [address] [place] [address] Mitochondrial M2 Ab, IgGon 0 07-28-2017 Mitochondrial M2 Ab, IgG 3.0 Units Normal 0.0-20.0 [facility] Comment on above: Result Comment: INTE RPRETIVE INFORMATION: Mitochondrial (M2) Antibody, IgG 20.0 Units or less ......... Negative 20.1 - 24.9 Units........... Equivocal 25.0 Units or greater....... Positive Performed by [facility], [address], [place] [id number] [email or web address], Sedrick Sue MD - Lab. Director Performed By: #### [id number] #### [facility] [address] [place] [address] Smooth Muscle (F-Actin) IgG w/Rfxon 07-28-2017 Smooth Muscle Ab, IgG Positive Normal NEGATIVE [facility] Smooth Muscle Ab, IgG Titer 1:20 Normal [facility] Healthcare PROGRESSon 04-21-2017 [facility] NOTES Normal [facility] Vital Signs Date Time Vital Sign Value Performing Clinician Facility 05-12-2023 09:24-0500 Body height 158.8 cm Alyssa Aguirre DO Work Phone: [facility] 05-12-2023 09:24-0500 Body mass index (BMI) [Ratio] 34.56 kg/m2 Alyssa Aguirre DO Work Phone: [facility] 05-12-2023 09:24-0500 Body temperature 98.1 [degF] Alyssa Aguirre DO Work Phone: [facility] 05-12-2023 09:24-0500 Body weight 87.09 kg Alyssa Aguirre DO Work Phone: [facility] 04-08-2023 15:06-0500 Diastolic blood pressure 71 mm[Hg] MD Bree Ambrose Work Phone: [facility] 04-08-2023 15:06-0500 Heart rate 75 /min MD Bree Ambrose Work Phone: [facility] 04-08-2023 15:06-0500 Respiratory rate 18 /min MD Bree Ambrose Work Phone: [facility] 04-08-2023 15:06-0500 SaO2% (BldA) [Mass fraction] 97 % MD Bree Ambrose Work Phone: [facility] 04-08-2023 15:06-0500 Systolic blood pressure 163 mm[Hg] MD Bree Ambrose Work Phone: [facility] 04-08-2023 13:28-0500 Body height 160.02 cm MD Bree Ambrose Work Phone: [facility] 04-08-2023 13:28-0500 Body temperature 98.2 [degF] MD Bree Ambrose Work Phone: [facility] 04-08-2023 13:28-0500 Body weight 88.45 kg MD Bree Ambrose Work Phone: [facility] Encounters Encounter Date Encounter Type Care Provider Facility Start: 05-09-2024 End: 05-09-2024 Patient encounter procedure Arley Keller MD Work Phone: [facility] Cindi Casarez Work Phone: Start: 05-09-2024 End: 05-09-2024 ambulatory Arley Keller MD Work Phone: [facility] Work Phone: Start: 05-05-2024 End: 05-05-2024 ambulatory MD Randolph Shah Facility:[facility] Start: 05-05-2024 End: 05-05-2024 Patient encounter procedure Randolph Shah [facility] Start: 04-25-2024 End: 04-25-2024 Patient encounter procedure Arley Keller MD Work Phone: [facility] [address] Work Phone: Start: 04-25-2024 End: 04-25-2024 ambulatory Arley Keller MD Work Phone: [facility] Work Phone: Start: 02-29-2024 End: 02-29-2024 ambulatory Arley Keller Facility:[facility] Start: 12-21-2023 End: 12-21-2023 Lab Drop off Arley Keller [facility] Start: 12-21-2023 End: 12-21-2023 ambulatory Arley Keller Facility:[facility] Start: 12-16-2023 End: 12-16-2023 ambulatory [facility]icaela [facility]omino [facility] Start: 11-08-2023 End: 11-08-2023 ambulatory EH[facility] Start: 09-27-2023 End: 09-27-2023 ambulatory JOSELO THRASHER Not Available Start: 09-17-2023 End: 09-17-2023 ambulatory SHELTON TRIANA Not Available Start: 08-31-2023 End: 08-31-2023 Lab Drop off Arley Keller [facility] Start: 08-31-2023 End: 08-31-2023 ambulatory Arley Keller Facility:[facility] Start: 08-05-2023 End: 08-05-2023 ambulatory SHELTON TRIANA Not Available Start: 07-09-2023 End: 07-09-2023 ambulatory RICKY VALDIVIA Facility:[facility] Start: 06-23-2023 End: 06-23-2023 ambulatory ALYSSA AGUIRRE Not Available Start: 06-17-2023 End: 06-17-2023 ambulatory SHELTON TRIANA Not Available Start: 05-12-2023 Bamboo flowsheet Alyssa Domingo Pow ers DO Work Phone: [facility] Start: 05-12-2023 Bamboo flowsheet Alyssa Deep Pow ers DO Work Phone: [facility] Start: 05-12-2023 End: 05-12-2023 Patient encounter procedure Alyssa Aguirre DO Work Phone: [facility] Comment on above: Traumatic closed dis placed fracture of right shoulder with anterior dislocation with routine healing, subsequent encounter (Primary Dx) Start: 05-12-2023 End: 05-12-2023 ambulatory ALYSSA AGUIRRE Not Available Start: 05-11-2023 End: 05-11-2023 ambulatory Agustín Lacey Facility:[facility] Start: 04-21-2023 End: 04-21-2023 ambulatory ALYSSA AGUIRRE Not Available Start: 04-08-2023 End: 04-08-2023 Emergency department patient visit MD Bree Ambrose Work Phone: [facility] Work Phone: Start: 03-16-2023 End: 03-16-2023 ambulatory MD Bree Ambrose Work Phone: [facility] Work Phone: Start: 03-16-2023 End: 03-16-2023 Patient encounter procedure MD Bree Ambrose Work Phone: [facility] [address] Work Phone: Start: 03-02-2023 End: 03-02-2023 ambulatory SHELTON TRIANA Not Available Start: 06-30-2022 End: 06-30-2022 Lab Drop off Micaela Palomino [facility] Start: 05-21-2022 End: 05-22-[address] ANTONINA NEWSOME Facility:[facility] Start: 05-14-2022 End: 05-22-[address] BREE AMBROSE . Facility:[facility] Start: 01-22-2022 End: 01-23-[address] BREE AMBROSE . Facility:[facility] Start: 12-23-2021 Office outpatient vi sit 15 minutes Bree Ambrose Work Phone: [facility] [facility] Work Phone: Start: 12-23-[address] Ary Arrieta Fac ility:[id number] Start: 12-02-2021 Patient encounter procedure Bree Ambrose Work Phone: [facility] Work Phone: Start: 11-14-2021 End: 12-10-[address] BREE AMBROSE . Facility:[facility] Start: 02-11-2021 Patient encounter procedure Bree Ambrose Work Phone: HK-Gygjljjpjz[facility]ctsd[facility] [facility] Work Phone: Start: 02-11-[address] Kenroy Low Facility:[id number] Start: 06-01-2018 Patient encounter procedure PROVIDER UNKNOWN Facility:7 Start: 09-09-2017 Patient encounter procedure PROVIDER UNKNOWN Facility:7 Start: 08-04-2017 Patient encounter procedure PROVIDER UNKNOWN Facility:7 Start: 07-28-2017 Patient encounter procedure PROVIDER UNKNOWN Facility:7 Start: 07-28-2017 Patient encounter procedure PROVIDER UNKNOWN Facility:7 Start: 04-21-2017 Ambulatory [facility] Procedures Date Procedure Procedure Detail Performing Clinician Start: 05-12-2023 Radex shoulder compl ete minimum 2 views Alyssa Aguirre DO Work Phone: Start: 04-08-2023 End: 04-08-2023 Plain X-ray of right shoulder MD Bree Ambrose Work Phone: Start: 01-20-2021 Blepharoplasty of up per eyelid Micaela Candelario Start: 10-20-2018 Antibody screen Comment on above: Performed By: #### T +S ####[facility] [place] [address] Start: 10-20-2018 Antibody screen Comment on above: Order Comment: TEST TYPE + SCREEN WAS CANCELLED, 10/20/2018 16:05 ?Cancel Reason: Cancelled. Performed By: #### T +S #### [facility] [address] [place] [address] Appendectomy Micaela Candelario Arthroplasty of knee Micaela Sc hwab Arthroscopy, knee Bree Cee Work Phone: Biopsy Of Liver Bree Ambrose Work Phone: Decompression of med mitzi nerve Micaela Candelario Excision of ganglion cyst Parisa di Candelario History of placement of stent for coronary artery disease Micaela Candelario Hysterectomy Bree Ambrose Work Phone: Release of trigger finger Parisa di Candelario Repair of hip Micaela Candelario Total hysterectomy Arley Ro ss Total Knee Replacement Left Bree Ambrose Work Phone: Plan of Treatment Date Care Activity Detail Author Start: 12-18-2024 ambulatory Ambulatory Facility:[facility] Start: 08-29-2024 ambulatory Ambulatory Facility:[facility] Start: 09-27-2023 End: 09-27-2023 Patient encounter procedure 09/27/2023 10:55 AM EDT Office Visit [facility] [address] [place] [address] Joselo Thrasher, POLYMER CHEMIST-DIVISION SERGEANT [address] [place] [address] [facility] Start: 06-23-2023 End: 06-23-2023 Patient encounter procedure 06/23/2023 9:30 AM EDT Office Visit [facility] [address] [place] [phone] Alyssa Aguirre, DO [address] [place] [address] [facility] Start: 06-17-2023 End: 06-17-2023 Patient encounter procedure 06/17/2023 11:00 AM EDT Office [facility] [address] [place] [id number] Shelton Triana DPM [address] [place] [address] [facility] Start: 05-12-2023 End: 05-12-2023 Patient encounter procedure 05/12/2023 9:45 AM EST Office Visit [facility] [address] [place] [phone] Alyssa Aguirre, DO [address] [place] [place] [address] Traumatic closed displaced fracture of right shoulder with anterior dislocation with routine healing, subsequent encounter (Primary Dx) [facility] Comment on above: Traumatic closed dis placed fracture of right shoulder with anterior dislocation with routine healing, subsequent encounter (Primary Dx) Start: 12-23-2021 GENTRY, Provider : Kenroy Low, Status: Pen, Time: 2:40 PM GENTRY, Provider: Kenroy Low, Status: Pen, Time: 2:40 PM DN-Tvodrtllnu[address] Work Phone: Patient Education Shoulder [facility] Work Phone: Patient referral [facility] Work Phone: Immunizations Immunization Date Immunization Notes Care Provider Vamsi peña 12-27-2023 influenza virus vaccine, unspecified formulation Randolph Shah [facility] 12-22-2022 influenza virus vaccine, unspecified formulation Arley Krishna [facility] 01-22-2022 influenza virus vaccine, unspecified formulation Micaela Candelario [facility] 01-17-2020 Fluad Quadrivalent 0 .5 ML Intramuscular Prefilled Syringe Bree Ambrose Work Phone: ZK-Trprymocbj-Qdv [place] [address] Work Phone: 01-17-2020 influenza virus vaccine, unspecified formulation Micaela Candelario [facility] 01-04-2019 influenza virus vaccine, unspecified formulation Micaela Candelario [facility] 01-04-2019 Seasonal trivalent influenza vaccine, adjuvanted, preservative free Bree Ambrose Work Phone: SO-Wcbaanptbn-Jyv [place] [address] Work Phone: 12-31-2017 influenza virus vaccine, unspecified formulation Micaela Candelario [facility] 12-31-2017 Influenza, injectabl e, Madin [place] Canine Kidney, preservative free, quadrivalent Bree E Ambrose Work Phone: GF-Fdvrfcibms-Ddw [place] Work Phone: 02-16-2017 influenza virus vaccine, unspecified formulation Micaela Candelario [facility] 02-16-2017 influenza, injectabl e, quadrivalent, preservative free Bree Ambrose Work Phone: HY-Ggqczrbxhj-Inu [place] Work Phone: 04-05-2015 pneumococcal polysaccharide vaccine, 23 valent Bree Ambrose Work Phone: [facility] 02-03-2015 influenza virus vaccine, unspecified formulation Arley Keller [facility] 02-03-2015 influenza, injectabl e, madin teajs canine kidney, preservative free Bree Ambrose Work Phone: AR-Kwarckqwyx-Jal [place] Work Phone: 11-21-2014 pneumococcal conjuga te vaccine, 13 valent Bree Venegasight Work Phone: [facility] NEGATED: Highlighted row has not occurred!08-04-2022 SARS-CoV-2 mRNA (tozinameran 5y-11y) vaccine Arley Keller [facility] Payers Date Payer Category Payer Self-pay [id number] 2024 Private Health Insurance [id number] 2022 Medicare ANTHEM MEDICARE ADVANTAGE ANTHEM MEDICARE ADVANTAGE [id number] 2022-Present [address] [place] [address] [id number] 1959 Medicare [id number] 1959 Unknown [id number] 1959 Unknown [id number] 1953 Unknown [id number] 2.16.840.1.256245.3.579. 2.355 1953 Unknown [id number] 2.16.840.1.084808.3.579. 2.355 1953 Unknown [id number] 2.16.840.1.803031.3.579. 2.355 1953 Unknown [id number] 2.16.840.1.198053.3.579. 2.355 1953 Unknown [id number] 2.16.840.1.399229.3.579. 2.355 1953 Unknown [id number] 2.16.840.1.969746.3.579. 2.356 1953 Unknown [id number] 2.16.840.1.961763.3.579. 2.356 1953 Unknown [id number] 2.16.840.1.228718.3.579. 2.593 1953 Unknown [id number] 2.16.840.1.548193.3.579. 2.593 1953 Unknown [id number] 2.16.840.1.391857.3.579. 2.593 1953 Unknown [id number] 2.16.840.1.178031.3.579. 2.593 1953 Unknown [id number] 2.16.840.1.639728.3.579. 2.1259 1953 Unknown [id number] 2.16.840.1.470834.3.579. 2.1259 1953 Unknown [id number] 2.16.840.1.242427.3.579. 2.1259 1953 Unknown [id number] 2.16.840.1.443204.3.579. 2.1259 1953 Unknown [id number] 2.16.840.1.674226.3.579. 2.125 1953 Unknown [id number] 2.16.840.1.686996.3.579. 2.1259 1953 Unknown [id number] 2.16.840.1.815161.3.579. 2.1259 1953 Unknown [id number] 2.16.840.1.981890.3.579. 2.1259 1953 Unknown [id number] 2.16.840.1.487271.3.579. 2.1259 1953 Unknown [id number] 2.16.840.1.801744.3.579. 2.1259 1953 Unknown [id number] 2.16.840.1.480486.3.579. 2.72 1953 Unknown [id number] 2.16.840.1.784532.3.579. 2.72 1953 Unknown [id number] 2.16.840.1.404421.3.579. 2. 1953 Unknown [id number] 2.16.840.1.059359.3.579. 2. 1953 Unknown [id number] 2.16.840.1.715537.3.579. 2.72 1953 Unknown [id number] 2.16.840.1.089974.3.579. 2.72 1953 Unknown [id number] 2.16.840.1.090668.3.579. 2. 1953 Unknown [id number] 2.16.840.1.937394.3.579. 2. 1953 Unknown [id number] 2.16.840.1.864151.3.579. 2.72 1953 Unknown [id number] 2.16.840.1.048005.3.579. 2.72 1953 Unknown [id number] 2.16.840.1.518577.3.579. 2.72 Unknown [id number] Unknown Unknown [id number] Unknown [id number] 2.16.840.1.843665.3.579. 2.531 Unknown [id number] 2.16.840.1.926122.3.579. 2.531 Social History Date Type Detail Facility Start: 04-21-2023 End: 05-12-2023 No illicit drug use No illicit drug use [facility] [address] [facility] Work Phone: Start: 06-30-2022 End: 04-08-2023 Tobacco smoking status Never smoked tobacco (finding) [facility] Comment on above: denies use Tobacco smoking status Never [facility] Comment on above: denies use Start: 04-21-2023 End: 05-12-2023 Sex Assigned At Female [facility] Start: 1955 Sex Assigned At Female F [facility] Start: 04-21-[address] [facility] Ex-smoker [facility] End: 06-04-1979 History of tobacco use Current smoker [facility] End: 06-04-1979 History of tobacco use Cigarette Smoker [facility] Start: 04-21-2023 Tobacco use and exposure Smokeless tobacco non-user [facility] Start: 04-21-2023 End: 05-12-2023 Alcohol intake Lifetime non-drinker (finding) [facility] Start: 09-19-2022 Alcohol Comment Caffeine: soda [facility] Start: 04-17-2023 Gender identity Identifies as female gender (finding) [facility] Start: 04-17-2023 Sexual orientation Heterosexual (fin ding) [facility] Start: 04-26-2024 End: 05-10-2024 Sex Female (finding) [facility] Clinical Notes 05-12-2023 to 02-29-2024 Bree Croft - 05/12/2023 9:45 AM ESTRadiologyRadiology Note Date & Type Note Facility 02-29-2024 Note Patient Education Nutrition BMI for Adults Body mass index (BMI) is a number found using a person's weight and height. BMI can help tell how much of a person's weight is made up of fat. BMI does not measure body fat directly. It is used instead of tests that directly measure body fat, which can be difficult and expensive. What are BMI measurements used for? BMI is useful to: ??? Find out if your weight puts you at higher risk for medical problems. ??? Help recommend changes, such as in diet and exercise. This can help you reach a healthy weight. BMI screening can be done again to see if these changes are working. How is BMI calculated? Your height and weight are measured. The BMI is found from those numbers. This can be done with U.S. or metric measurements. Note that charts and online BMI calculators are available to help you find your BMI quickly and easily without doing these calculations. To calculate your BMI in [place].S. measurements: 1. Measure your weight in pounds (lb). 2. Multiply the number of pounds by 703. ??? So, for an adult who weighs 150 lb, multiply that number by 703: 150 x 703, which equals 105,450. 3. Measure your height in inches. Then multiply that number by itself to get a measurement called inches squared. ??? So, for an adult who is 70 inches tall, the inches squared measurement is 70 inches x 70 inches, which equals 4,900 inches squared. 4. Divide the total from step 2 (number of lb x 703) by the total from step 3 (inches squared): 105,450 ? 4,900 = 21.5. This is your BMI. To calculate your BMI in metric measurements: 1. Measure your weight in kilograms (kg). ??? For this example, the weight is 70 kg. 2. Measure your height in meters (m). Then multiply that number by itself to get a measurement called meters squared. ??? So, for an adult who is 1.75 m tall, the meters squared measurement is 1.75 m x 1.75 m, which equals 3.1 meters squared. 3. Divide the number of kilograms (your weight) by the meters squared number. In this example: 70 ? 3.1 = 22.6. This is your BMI. What do the results mean? BMI charts are used to see if you are underweight, normal weight, overweight, or obese. The following guidelines will be used: ??? Underweight: BMI less than 18.5. ??? Normal weight: BMI between 18.5 and 24.9. ??? Overweight: BMI between 25 and 29.9. ??? Obese: BMI of 30 or above. BMI is a tool and cannot diagnose a condition. Talk with your health care provider about what your BMI means for you. Keep these notes in mind: ??? Weight includes fat and muscle. Someone with a muscular build, such as an athlete, may have a BMI that is higher than 24.9. In cases like these, BMI is not a correct measure of body fat. ??? If you have a BMI of 25 or higher, your provider may need to do more testing to find out if excess body fat is the cause. ??? BMI is measured the same way for males and females. Females usually have more body fat than males of the same height and weight. Where to find more information For more information about BMI, including tools to quickly find your BMI, go to: ??? Centers for Disease Control and Prevention: cdc.gov ??? [place] Heart Association: heart.org ??? National Heart, Lung, and Blood [place]: nhlbi.nih.gov This information is not intended to replace advice given to you by your health care provider. Make sure you discuss any questions you have with your health care provider. Document Revised: 12/10/2022 Document Reviewed: 12/03/2022 [employer] Patient Education ? 2023 [employer]. [facility] 12-16-2023 Note Patient Education Emergency Medicine Heart Attack A heart attack occurs when blood and oxygen supply to the heart is cut off. A heart attack can cause damage to the heart that cannot be fixed. A heart attack is also called a myocardial infarction, or KS. If you think you are having a heart attack, do not wait to see if the symptoms will go away. Get medical help right away. What are the causes? This condition may be caused by: ? A fatty substance (plaque) in the blood vessels (arteries). This can block the flow of blood to the heart. ? A blood clot in the blood vessels that go to the heart. The blood clot blocks blood flow. ? An abnormal heartbeat. ? Some diseases, such as problems in red blood cells (anemia)orproblems in breathing (respiratory failure). ? Tightening (spasm) of a blood vessel that cuts off blood to the heart. ? A tear in a blood vessel of the heart. Other causes may include: ? Using drugs such as cocaine or methamphetamine. ? Low blood pressure. What increases the risk? ? Aging. The risk gets higher as you get older. ? Having a personal or family history of chest pain, heart attack, stroke, or narrowing of the arteries in the legs, arms, head, or stomach (peripheral vascular disease). ? Having taken chemotherapy or immune-suppressing medicines. ? Being male. ? Being overweight or obese. ? Having any of these conditions: ? High blood pressure. ? High cholesterol. ? Diabetes. ? Making lifestyle choices such as: ? Drinking too much alcohol. ? Not getting regular exercise. ? Smoking. What are the signs or symptoms? ? Chest pain. It may feel like: ? Crushing or squeezing. ? Tightness, pressure, fullness, or heaviness. ? Pain in the arm, neck, jaw, back, or upper body. ? Heartburn. ? Upset stomach (indigestion). ? Shortness of breath. ? Feeling like you may vomit (nauseous). ? Cold sweats. ? Sudden light-headedness, dizziness, or passing out. ? Feeling tired. How is this treated? A heart attack must be treated as soon as possible. Treatment may include: ? Medicines to: ? Break up or dissolve blood clots. ? Thin your blood and help prevent blood clots. ? Treat blood pressure. ? Improve blood flow to the heart. ? Reduce pain. ? Reduce cholesterol. ? Procedures to widen a blocked artery and keep it open. ? Open heart surgery. ? Making your heart strong again (cardiac rehabilitation) through exercise, education, and counseling. Follow these instructions at home: Medicines ? Take jqwt-jte-vqyzjip and prescription medicines only as told by your doctor. ? Do not take these medicines unless your doctor says it is okay: ? NSAIDs, such as ibuprofen, naproxen, or celecoxib. ? Any vitamins or supplements. ? Hormone replacement therapy that has estrogen with or without progestin. ? If you are taking blood thinners: ? Talk with your doctor before taking any medicines that have aspirin or NSAIDs, such as ibuprofen. ? Take medicines exactly as told. Take them at the same time each day. ? Avoid doing things that could hurt or bruise you. Take action to prevent falls. ? Wear an alert bracelet or carry a card that shows you are taking blood thinners. Lifestyle ? Do not smoke or use any products that contain nicotine or tobacco. If you need help quitting, ask your doctor. ? Avoid secondhand smoke. ? Exercise regularly. Ask your doctor about a cardiac rehab program. ? Eat heart-healthy foods. Your doctor will tell you what foods to eat. ? Stay at a healthy weight. ? Learn ways to lower your stress level. ? Do not use illegal drugs. Alcohol use ? Do not drink alcohol if: ? Your doctor tells you not to drink. ? You are , may be , or are planning to become . ? If you drink alcohol: ? Limit how much you have to: ? 0?1 drink a day for women. ? 0?2 drinks a day for men. ? Know how much alcohol is in your drink. In the [place] one drink equals one 12 oz bottle of beer (355 mL), one 5 oz glass of wine (148 mL), or one 1? oz glass of hard liquor (44 mL). General instructions ? Work with your doctor to treat other problems you may have, such as diabetes or high blood pressure. ? Get screened for depression. Get treatment if needed. ? Keep your vaccines up to date. Get the flu shot (influenza vaccine) every year. ? Keep all follow-up visits. Contact a doctor if: ? You feel very sad. ? You have trouble doing your daily activities. ? You get light-headed or dizzy. Get help right away if: ? You have sudden, unexplained discomfort in your chest, arms, back, neck, jaw, or upper body. ? You have shortness of breath. ? You have sudden sweating or clammy skin. ? You feel like you may vomit or you vomit. ? You feel tired or weak. ? You feel your heart beating fast. ? You feel your heart skipping beats. ? You (more content not included)... [facility] 11-08-2023 Note [facility] Cardiology Clinic Note Chief Complaint: Patient here for 1 year follow up CAD, hypertension, and carotid artery stenosis. Had routine labs w/ lipid panel in August 2023. She feels great. She denies chest pain, SOB, palpitations, and lightheadedness/syncope. HPI: Lj Doll is a 68 y.o. female With history of coronary artery disease, hypertension and diabetes She is doing very well and has no concerning symptoms Cardiology ROS: Review of Systems All other systems reviewed and are negative. Cardiology ROS: GENERAL: Denies fever, chills, night sweats, weight loss. HEENT: Denies changes in vision, photophobia, changes in hearing, epistaxis, oral bleeding. CARDIOVASCULAR: Denies chest pain, exertional dyspnea, orthopnea/PND, lower extremity edema, palpitations, lightheadedness/dizziness. RESPIRATORY: Denies SOB, coughing, wheezing GI: Denies abdominal pain, nausea/vomiting, heartburn, melena/hematochezia. RENAL: Denies dysuria, hematuria, flank pain. MSK: Denies muscle weakness/pain, arthralgias/joint pain. NEUROLOGIC: Denies LOC, weakness, numbness, headaches. SKIN: Denies abnormal rashes or bleeding. PSYCH: Denies significant anxiety, depression, sleep disturbances. Past Medical History She has a past medical history of Carotid artery stenosis, Coronary artery disease, Diabetes mellitus (CMS/HCC), Hyperlipidemia, and Hypertension. Surgical History She has a past surgical history that includes Cardiac catheterization and Coronary stent placement. Social History She reports that she has never smoked. She has never used smokeless tobacco. No history on file for alcohol use and drug use. Family History Family History Problem Relation Name Age of Onset Coronary artery disease Mother Coronary artery disease Father Brain cancer Brother Allergies Adalimumab, Diclofenac, Diphenhydramine, Oxaprozin, Oxycodone-acetaminophen, and Bgxgxjs-qxc-cis reductase inhibitors Medications Current Outpatient Medications: amitriptyline (Elavil) 25 mg tablet, Take 25 mg by mouth., Disp: , Rfl: aspirin 81 mg EC tablet, Take 81 mg by mouth., Disp: , Rfl: calcium carbonate EX (Tums Extra Strength) 300 mg (750 mg) chewable tablet, Chew 500 mg., Disp: , Rfl: carvedilol (Coreg) 3.125 mg tablet, Take 3.125 mg by mouth with breakfast and with evening meal., Disp: , Rfl: cholecalciferol (Vitamin D-3) 25 MCG (1000 units) tablet, Take 1,000 Units by mouth in the morning., Disp: , Rfl: etanercept (EnbreL) 50 mg/mL (1 mL) injection, Inject 1 mL under the skin., Disp: , Rfl: furosemide (Lasix) 20 mg tablet, Take 20 mg by mouth in the morning., Disp: , Rfl: gabapentin (Neurontin) 100 mg capsule, Take 200 mg by mouth twice a day., Disp: , Rfl: hydroxychloroquine (Plaquenil) 200 mg tablet, Take 200 mg by mouth in the morning., Disp: , Rfl: insulin glargine (Lantus Solostar U-100 Insulin) 100 unit/mL (3 mL) pen, Inject under the skin., Disp: , Rfl: insulin glargine-yfgn 100 unit/mL (3 mL) insulin pen, Inject under the skin., Disp: , Rfl: lisinopriL-hydrochlorothiazide 10-12.5 mg tablet, Take 1 tablet by mouth in the morning., Disp: , Rfl: metFORMIN (Glucophage) 850 mg tablet, Take 850 mg by mouth., Disp: , Rfl: pantoprazole (ProtoNix) 40 mg EC tablet, Take 40 mg by mouth., Disp: , Rfl: rosuvastatin (Crestor) 5 mg tablet, Take 5 mg by mouth at bedtime., Disp: , Rfl: semaglutide (Ozempic) 1 mg/dose (2 mg/1.5 mL) pen injector, Inject 1 mg under the skin., Disp: , Rfl: sertraline (Zoloft) 50 mg tablet, Take 50 mg by mouth in the morning., Disp: , Rfl: celecoxib (CeleBREX) 200 mg capsule, take 1 capsule (200MG) by ORAL route every day as needed Oral, Disp: , Rfl: exenatide (Byetta) 5 mcg/dose (250 mcg/mL) 1.2 mL injection, Inject 1 each under the skin in the morning., Disp: , Rfl: lisinopril 2.5 mg tablet, Take 2.5 mg by mouth in the morning., Disp: , Rfl: Last Recorded Vitals BP 115/57 (BP Location: Right arm, Patient Position: Sitting) Pulse 75 Ht 1.588 m (5' 2.5 ) Wt 89.4 kg (197 lb) SpO2 97% BMI 35.46 kg/m??? Physical Examination: GENERAL: alert and oriented x3, well developed, in no acute distress. HEAD: atraumatic, normocephalic. EYES: ROSIE, EOMI. NECK: trachea midline, no JVD present, no carotid bruits present. CARDIAC: S1, S2 present. RRR. No murmur, rubs, or gallops. RESPIRATORY: CTAB, no increased effort of breathing, no rales, rhonchi, or wheezing. ABDOMEN: soft, nontender, nondistended. EXTREMITIES: no lower extremity edema, peripheral pulses are 2+ bilaterally. No rash/skin discoloration present. NEURO: strength/sensation equal and symmetric in bilateral upper and lower extremities. PSYCH: appropriate mood, affect, and judgement. Labs: 04/17/21 CBC normal Renal function normal Liver function normal Lipid levels well controlled Last lab values have been reviewed CV Testin03/2019 Echo 06/2018 Carotid US Ech (more content not included)... [facility] 05-12-2023 History of Present illness Narrative Images from the original note were not included. Lj Doll is a 68 y.o. female presents with chief complaint of follow up right shoulder dislocation. HPI: Kim is here for post injury, second visit. Pain is controlled. She is happy to be able to get out of the sling now. No new falls or trauma reported. She denies any numbness or tingling. No fever, chills or constitutional symptoms. No new injury reported. Her friend is present which has been helpful. SUBJECTIVE: MEDICATIONS: Current Outpatient Medications Medication Instructions amitriptyline (ELAVIL) 25 mg, Oral, Nightly aspirin 81 mg, Oral, Once carvedilol (COREG) 3.125 mg, Oral, 2 times daily with meals cholecalciferol (VITAMIN D-3) 1,000 Units, Oral, Daily RT colchicine 0.6 mg, Oral, Daily Continuous Blood Gluc Sensor (FreeStyle Denny 2 Sensor) misc etanercept (Enbrel) 50 MG/ML injection 1 mL, Subcutaneous, Weekly folic acid (FOLVITE) 1 mg, Oral, Daily RT furosemide (LASIX) 20 mg, Oral, Daily gabapentin (NEURONTIN) 200 mg, Oral, 2 times daily hydroxychloroquine (PLAQUENIL) 200 mg, Oral, Daily insulin lispro (HumaLOG) 100 UNIT/ML injection Subcutaneous, 3 times daily with meals Lantus SoloStar 100 UNIT/ML pen Subcutaneous, Every morning lisinopril 2.5 MG tablet Take 1 tablet every day by oral route for 90 days. lisinopril 5 MG tablet lisinopril-hydroCHLOROthiazide 10-12.5 MG tablet 1 tablet, Oral, Daily RT metFORMIN (GLUCOPHAGE) 850 mg, Oral, 2 times daily with meals Multiple Vitamin (multivitamin) capsule 1 capsule, Oral, Daily Ozempic, 1 MG/DOSE, 4 MG/3ML solution pen-injector as directed Subcutaneous pantoprazole (PROTONIX) 40 mg, Oral, Daily before breakfast rosuvastatin (CRESTOR) 5 mg, Oral, Daily sertraline (ZOLOFT) 50 mg, Oral, Daily ALLERGIES: Allergies Allergen Reactions Adalimumab Other Reaction(s): Hives Diclofenac Other Reaction(s): does not help Diphenhydramine Other Reaction(s): brain fog, VERY FOGGY BRAIN Other Oxaprozin Other Reaction(s): INEFFECTIVE Oxycodone-Acetaminophen Nausea And Vomiting Statins Other Reaction(s): MUSCLE CRAMPS, Myalgia SURGICAL HISTORY: Past Surgical History: Procedure Laterality Date CARDIAC CATHETERIZATION 11/2003 30% LAD CARDIAC CATHETERIZATION 10/2016 2 stents placed CARPAL TUNNEL RELEASE COLONOSCOPY 2008, CYST REMOVAL ganglion B/L wrist EGD 2018 gastric polyps FOOT SURGERY Right excision of bone spur foot HIP SURGERY 2019 HYSTERECTOMY 1990 KNEE SURGERY 2016 LIVER BIOPSY 2001 TOTAL KNEE ARTHROPLASTY Left 05/07/2014 TRIGGER FINGER RELEASE trigger RT RF and thumb TRIGGER FINGER RELEASE 12/21/2011 RT CTR & RMF trigger release TRIGGER FINGER RELEASE 01/15/2014 LT RF trigger release FAMILY HISTORY: Family History Problem Relation Name Age of Onset Heart disease Mother Glaucoma Mother Heart disease Father Brain cancer Sibling Cancer Brother [facility] Rheumatologic disease Sister Danna Keen Melanoma Neg Hx SOCIAL HISTORY: Social History Tobacco Use Smoking status: Former Packs/day: 0.50 Years: 15.00 Additional pack years: 0.00 Total pack years: 7.50 Types: Cigarettes Quit date: 06/04/1979 Years since quittin.9 Smokeless tobacco: Never Vaping Use Vaping Use: Never used Substance Use Topics Alcohol use: Never Comment: Caffeine: soda Drug use: Never Depression: Not on file REVIEW OF SYMPTOMS: The review of systems, history and current medications list are all reviewed today. OBJECTIVE: Visit Vitals Temp 98.1 F Ht 5' 2.5 Wt 192 lb BMI 34.56 kg/m Smoking Status Former BSA 1.96 m Physical Exam On physical exam, the shoulder is clinically reduced. Swelling is mild. Range of motion shows mild to moderate restriction. Apprehension is still positive. The patient is neurovascularly intact distally. There is no sign of rash or infectious process. The joint is concentrically reduced. X-rays and imaging permanently saved to the patient's record were reviewed two view shoulder shows reduction of the shoulder glenohumeral dislocation. There is mild to moderate degenerative changes. No sign of recurrent instability. There is no fracture or dislocation seen. This is AP and Y views saved to the permanent record in the [place] office. 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 The nature of the findings were discussed at length. We discussed ice, Tylenol and topicals, wall, pendulum and lynne exercises. Apprehension maneuvers were reviewed for the next four to six weeks, being mindful of these. Physical therapy script was sent to [place] for evaluation and treat three times a week for four weeks for a home exercise program. Follow up at this point will be in six weeks for repeat x-ray and exam, sooner if worse. She voices verbal understanding. She is discharged in stable condition. Numerous questions were answered. The patient was seen and examined. From the time of check in, nurse triage, vital signs, x-ray, x-ray interpretation, review of systems, comprehensive history and physical exam as well as setting up treatment plan and further management took 35 minutes. documented in this encounter [facility] Evaluation + Plan note Future Appointments Appointment Date:08/04/2022 10:40:00 AM Scheduled Provider:BREE AMBROSE MD Location:[facility] Appointment Type: Open Diagnostic Tests PendingUrine Culture 06/30/22 [facility] Evaluation + Plan note Future Appointments Appointment Date:12/14/2023 09:30:00 AM Scheduled Provider: Location:[facility] Appointment Type: Medicare Wellness Subsequent Appointment Date:02/29/2024 09:15:00 AM Scheduled Provider:Arley Keller MD Location:[facility] Appointment Type: Open [facility] Evaluation + Plan note Future Appointments Appointment Date:02/29/2024 09:15:00 AM Scheduled Provider:Arley Keller MD Location:[facility] Appointment Type: Open Appointment Date:12/18/2024 01:00:00 PM Scheduled Provider: Location:[facility] Appointment Type:FM Medicare Wellness Subsequent Diagnostic Tests PendingHCV Antibody RFX to Quant PCR 12/21/23 Future Scheduled TestsMA Mamm Screen w/CAD if perf and 3D Jt 12/16/23 [facility] Evaluation + Plan note Future Appointments Appointment Date:05/19/2024 11:15:00 AM Scheduled Provider:[facility]olph Shah [facility] [place] [facility] Type:Cardiology New Patient (FT) Appointment Date:08/29/2024 09:15:00 AM Scheduled Provider:Arley Keller MD Location:[facility] Appointment Type: Open Appointment Date:12/18/2024 01:00:00 PM Scheduled Provider: Location:[facility] Appointment Type:FM Medicare Wellness Subsequent Future Scheduled TestsMA Mamm Screen w/CAD if perf and 3D Jt 12/16/23 [facility] Evaluation note No assessment inform ation available [facility] Work Phone: Evaluation note Diagnosis Traumatic closed displaced fracture of right shoulder with anterior dislocation with routine healing, subsequent encounter- Primary documented [facility] this encounter [facility]* 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 she is unchanged * Upper Gastrointestinal: no abdominal pain, no eructation, no difficulty swallowing, no early satiety, no heartburn, no jaundiced, no nausea, no pain while swallowing. * Lower Gastrointestinal: no abdominal swelling, no bloating, no constipation, no diarrhea, no fecal incontinence, no bowel urgency. * Liver Disease no alteration in sleep wake cycle, no ankle swelling, no cognitive impairment, no confusion, no icterus. * Symptom History: * Modifying Factors: * Associated Symptoms: * Skin: there are no skin symptoms. * Eyes: there are no eye symptoms. * Ears: there are no ear symptoms. * Nose: there are no nasal symptoms. * Mouth/Throat/Teeth: there are no oral symptoms. * Neck: there are no neck symptoms. * Cardiovascular: there are no cardiovascular symptoms. [id number] [facility] Work Phone: Hospital course Narrative No data available for this section [facility] No data available for this section [facility] Discharge instructions Additional Instructions Follow-up with orthopedic doctor provided [facility] develop [facility] Work Phone: Progress note No data available for this section [facility] Summary Purpose Family History No Family History Records FoundNo Family History Records FoundNo Family History Records FoundNo Family History Records FoundNo Family History Records FoundNo Family History Records FoundNo Family History Records Found No data available for this section No Family History Records FoundNo Family History Records FoundNo Family History Records FoundNo Family History Records FoundNo Family History Records FoundNo Family History Records FoundNo Family History Records Found No data available for this section No Family History Records FoundNo Family History Records Found No data available for this section No Family History Records FoundNo Family History Records Found Advance Directives No Advanced Directives Records Found Advance Directive Response Recorded Date/ Time Advance Directives No December 9:07am Hospital Course Note Send Summary: Discharge Summ kirstin Providers: Provider RoleProvider Name AttendingJeffrey Crowell Shaffer R.S. Note Recipients: Bree Ambrose MD - [id number] [] Discharge: Summary: Admission Date: .20-Oct-2018 10:48:00 Discharge Date: 22-Oct-2018 Attending Physician at Discharge: Jeffrey Crowell Admission Reason: Coughing up blood, syncope(1) Final Discharge Diagnoses: Gastrointestinal hemorrhage with hematemesis, hiatal hernia Procedures: EGD: no biopsies; no evidence of bleeding; hiatal hernia noted Condition at Discharge: Satisfactory Disposition at Discharge: .Home Vital Signs: T PRBPSpO2 [id number]/6396% Date/Time10/22 7: 7: 7: 7: 7:22 Range(35.9C [...] visit. * YEARLY FOLLOW UP NAFLD * 929 ) Patient referred by Dr. Low for [...] , for a telehealth visit. * NAFLD Chief Complaint and Reason for Visit Chief Complaint M81.0 Z79.899 fall, shoulder pain Chief Complaint Admit Date M81.0 April 25, 2024 1 0:32am Reason for Referral Specialty Diagnoses / Procedures Referred By Ap domingo Referred To Contact Physical Therapy Diagnoses Traumatic closed displaced fracture of right shoulder with anterior dislocation with routine healing, subsequent encounter Procedures CO OFFICE/OUTPATIENT [facility] 60 MINUTES Alyssa Aguirre, DO [address] [place] [address] [facility] Physical Therapy [address] [facility], [id number] Referral ID Status Reason Start Date Expiration Date Visits Requested Visits Authorized [id number] Authorized Specialty Services Required 05/12/2023 11/08/2023 1 1 Additional Source Comments INFORMATION SOURCE (unrecogn ized section and content) DATE CREATED AUTHOR 09/28/2017 Riz[place]ana Oliver Garcia godfrey DATE CREATED AUTHOR AUTHOR'S ORGANIZ ATION 06/07/2018 [facility] Healthcare DATE CREATED AUTHOR AUTHOR'S ORGANIZ ATION 11/01/2018 [facility] DATE CREATED AUTHOR AUTHOR'S ORGANIZ ATION 12/14/2020 [facility] DATE CREATED AUTHOR AUTHOR'S ORGANIZ ATION 01/04/2022 [facility] DATE CREATED AUTHOR AUTHOR'S ORGANIZ ATION 01/08/2022 [facility] DATE CREATED AUTHOR AUTHOR'S ORGANIZ ATION 06/05/2022 [facility] pital DATE CREATED AUTHOR AUTHOR'S ORGANIZ ATION 09/01/2023 [facility] DATE CREATED AUTHOR AUTHOR'S ORGANIZ ATION 09/28/2023 [facility] dical [facility] DATE CREATED AUTHOR AUTHOR'S ORGANIZ ATION 11/10/2023 [facility] DATE CREATED AUTHOR AUTHOR'S ORGANIZ ATION 12/25/2023 [facility] DATE CREATED AUTHOR AUTHOR'S ORGANIZ ATION 04/08/2024 [facility] DATE CREATED AUTHOR AUTHOR'S ORGANIZ ATION 04/14/2024 [facility] DATE CREATED AUTHOR AUTHOR'S ORGANIZ ATION 05/06/2024 [facility] DATE CREATED AUTHOR AUTHOR'S ORGANIZ ATION 05/11/2024 [facility] Patient Care team informatio n (unrecognized section and content) Team Status: Active Member Role Status Dates Bree Ambrose MD Primary Care Provider Active Team Status: Inactive Member Role Status Dates Bree Ambrose MD Primary Care Provider Active Fransisco Benavides MD Attending Provider Active Team Status: Active Member Role Status Dates Arley Keller MD Primary Care Provider Active Team Status: Inactive Member Role Status Dates Lalo Alvarado DO Emergency Provider Active Arley Keller MD Primary Care Provider Active [employer] Relationship Specialty Start Date End Date Arley Keller MD [address] [facility] [place] [address] PCP - General Family Medicine 03/02/23 [employer] Relationship Specialty Start Date End Date Arley Keller MD [address] [place] [address] PCP - General Family Medicine 03/02/23 Team Status: Inactive Member Role Status Dates Arley Keller MD Primary Care Provider Active Start: April 25, 2024 End: April 25, 2024 Fransisco Benavides MD Attending Provider Active St art: April 25, 2024 End: April 25, 2024 Team Status: Inactive Member Role Status Dates Arley Keller MD Primary Care Provider Active Start: May 09, 2024 End: May 09, 2024 Fransisco Benavides MD Attending Provider Active St art: May 09, 2024 End: May 09, 2024 Goals (unrecognized section and content) Goals may be documented in a n alternate section Reason for Visit (unrecogniz ed section and content) Reason Comments Pain FOR RECORDS PERTAINING TO PATIENTS WHO ARE [...] BE BASED ON THE PRIMARY CLINICAL RECORDS. [employer] provides no warranty or guarantee of the accuracy or completeness of information in this document.
[2024-05-11 16:08] LABS: Hematocrit 37.4 % (36.0-48.0); Hemoglobin 12.2 g/dL (12.0-16.0)
[2024-05-11 16:12] LABS: Creatinine Urine Random 70.77 mg/dL (20.00-300.00); Protein Creatinine Ratio Urine 0.67; Total Protein Urine Random 47.1 mg/dL (<=11.9)
[2024-05-11 16:22] LABS: Albumin Level 3.7 g/dL (3.4-5.0); Anion Gap 14.4; BUN Creatinine Ratio 17.1; Calcium 8.6 mg/dL (8.5-10.1); Carbon Dioxide 26.7 mmol/L (21.0-32.0); Chloride 106 mmol/L (98-107); Estimated GFR (African America 59 (>=60 mL/min/1.73m^2); Estimated GFR (Non-African Ame 48 (>=60 mL/min/1.73m^2); Glucose 125 mg/dL (74-106); Magnesium 1.7 mg/dL (1.8-2.4); Phosphorus 3.3 mg/dL (2.6-4.7); Potassium 4.1 mmol/L (3.5-5.1); Sodium 143 mmol/L (136-145)
[2024-05-14 11:07] LABS: PTH, Intact 64 pg/mL (15-65)
== END 2024-05-11 15:40 | disposition home or self-care (01) ==
PROVIDERS: PCP Family Medicine
DX: I13.10 Hypertensive heart and chronic kidney disease without heart failure, with stage 1 through stage 4 chronic kidney disease, or unspecified chronic kidney disease (principal)
CPT/HCPCS: 36415; 80069; 82570; 83735; 83970; 84156; 85014; 85018

== ENCOUNTER 2024-11-21 09:11 | Outpatient (OUT) | payer MEDICARE, SELFPAY ==
--- OUTSIDE RECORDS SUMMARY | 2024-11-21 09:16 | XMS_ITS | Continuity of Care Document ---
Author Organization [facility] Address [address] [place] [address] Phone [phone] Care Team Providers Care Scraper Hand Name Role Phone Arley Keller M.D. Care Team Information Manager Ed [phone] Problems Active Problems Provider Date Has influenza vaccination at hospital Onset: 05/03/2023 Family History Date Family Member(s) Observation Comments Father Heart Disease Father Gastroesophageal Reflux Dise ase (GERD) Mother Heart Disease Mother Gastroesophageal Reflux Dise ase (GERD) Social History Type Date Description Comments Sex Female Occupation Retired ETOH Use Occasionally consumes alcoho l Recreational Drug Use Denies Drug Use Tobacco Use Start: Unknown Patient has never smoked Smoking Status Reviewed: 05/23/24 Patient has never sm oked Results Test Acquired Date Facility Test Result H/L Range Note .Magnesium 05/11/2024 [facility])-[phone] .Magnesium 1.7 .Renal Panel 05/11/2024 [place] [phone] .Albumin 3.7 .Calcium 8.6 .Carbon Dioxide 26.7 .Chloride 106 .Phosphorus 3.3 .Potassium 4.1 .Sodium 143 .BUN 19.0 .GFR 48 .Creatinine-LC 1.11 .Urine Protein/Creat. Random 05/11/2024 [facility])-[phone] .Urine Protein Random 47.1 .Urine Creatinine Random 70.77 .Urine Prot/Creat Ratio 0.67 .Hemoglobin And Hematocrit 05/11/2024 [facility] [phone] .Hemoglobin Blood 12.2 .Hematocrit 37.4 .Renal Panel 11/19/2023 [phone] .Albumin 3.7 .Calcium 9.0 .Carbon Dioxide 25.4 .Chloride 103 .Phosphorus 3.1 .Potassium 4.1 .Sodium 138 .BUN 22.0 .GFR 51 High 20 .Creatinine-LC 1.06 .Ua 11/19/2023 [place] [phone] Ua Appearance CLEAR Ua Bilirubin NEGATIVE Ua Blood NEGATIVE Ua Color LT. YELLOW Ua Glucose NEGATIVE Ua Ketones NEGATIVE Ua Leuko SMALL Ua Nitrite NEGATIVE Ua PH Test Strip 5.5 Ua Protein NEGATIVE Ua Source CLEAN CATCH Ua Specific [place] 1.020 Ua Urobilinogen 0.2 .Urine Protein/Creat. Random 11/19/[address]345-4 040 .Urine Protein Random 9.0 .Urine Creatinine Random 31.62 .Urine Prot/Creat Ratio 0.28 .Free Light Chains 05/06/[address]758-4 040 [facility] Light Chains QN Ser 56.1 Lambda Light Chain QN Ser 37.1 .Ipth 05/06/[address]012-4 040 .Ipth 91 .Renal Panel 05/06/[address]113-4 040 .Albumin 3.6 .Calcium 8.8 .Carbon Dioxide 25.8 .Chloride 105 .Phosphorus 3.1 .Potassium 3.8 .Sodium 139 .BUN 22.0 .GFR 39 High 20 .Creatinine-LC 1.33 .Urinalysis-Rout ine 05/06/2023 [place] [phone] Ua Specific [place] >=1.030 Ua PH Test Strip 5.5 Ua Color LT. YELLOW Ua Appearance CLOUDY Ua Protein NEGATIVE Ua Glucose NEGATIVE Ua Ketones NEGATIVE Ua Bilirubin NEGATIVE Ua Urobilinogen 0.2 Ua Nitrite POSITIVE Ua Occult Blood NEGATIVE .Immunofixation- Serum 05/06/[address]605-4 040 .Immunofixation -Serum No Monoclonalit .Urine Protein/Creat. Random 05/06/[address]728-4 040 .Urine Protein Random 54.7 .Urine Creatinine Random 111.70 .Urine Prot/Creat Ratio 0.49 .Anti Proteinase 3 Abs 05/06/[address]170-4 040 .Anti Proteinase 3 Abs <0.2 .Complement C4 05/06/2023 [place] [phone] .Complement C4 31 .Complement C3 05/06/2023 [place] [phone] .Complement C3 137 .Hematocrit 05/06/2023 [place] [phone] .Hematocrit 34.0 .Hemoglobin Blood 05/06/2023 [place] [phone] .Hemoglobin Blood 10.9 .Immunofixation- Urine 05/06/2023 [place] [phone] .Immunofixation -Urine No Monoclonalit .CBC W/Differential 12/18/2022 [facility] (000)-000-0 000 .White Blood Count 6.8 .Red Blood Count 3.77 .Hemoglobin Blood 11.2 .Hematocrit 35.0 MCH (Corpuscular Hemoglobin) 29.7 MCHC (Corpuscular Hemog Conc) 32.0 RDW 13.2 .Platelet Count Blood 253 Neutrophils 45.2 Fluid Lymphocytes 38.1 Monocytes 11.6 Fluid Body Eosinophils 4.2 Basophils % 0.6 Absolute Basophils 0.0 Absolute Eosinophils 0.3 Absolute Lymphocytes 2.6 Absolute Monocytes 0.8 Absolute Neutrophils 3.1 .CMP 12/18/2022 [facility] (000)-000-0 000 .Albumin 3.6 .Alt 43 .Calcium 8.6 .Carbon Dioxide 26.2 .Chloride 105 .Creatinine-LC 1.01 .Glucose Serum 106 .Potassium 4.3 .Protein-Total 7.2 .Sodium 139 .Ast 27 .BUN 27.0 .GFR 54 .Renal Panel 11/02/2022 [facility] (000)-000-0 000 .Albumin 3.8 .Calcium 8.7 .Carbon Dioxide 26.4 .Chloride 104 .Potassium 4.4 .Sodium 139 .BUN 23.0 .GFR 53 .Creatinine-LC 1.03 .CBC W/O Differential 01/13/2021 [facility] (000)-000-0 000 .Hematocrit 36.3 .Hemoglobin Blood 11.8 .Platelet Count Blood 233.0 .Red Blood Count 4.1 RDW 13.2 .White Blood Count 7.6 MCH (Corpuscular Hemoglobin) 28.5 MCHC (Corpuscular Hemog Conc) 32.5 MPV 8.0 MCV (Corpuscular Volume) 87.9 .BMP W/Egfr-LC 01/13/2021 [facility] (000)-000-0 000 .Sodium 140 .Potassium 4.4 .Chloride 105 .Carbon Dioxide 22 .GFR 55 .Creatinine-LC 1.0 .BUN 25 Encounters Type Date Location Provider Dx Diagnosis Office Visit 05/23/2024 10:40a [facility] TERESO Orourke I13.10 Hyp hrt & chr kdny dis w/o hrt fail, w stg 1-4/unsp chr kdny 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 Z79.1 custodial (current) use of non-steroidal non-inflam (Nsaid) N18.31 Chronic kidney disea se, stage 3a Office Visit 11/19/2023 1:20p [facility] TERESO Rojas I13.10 Hyp hrt & chr kdny dis w/o hrt fail, w stg 1-4/unsp chr kdny 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 Z79.1 custodial (current) use of non-steroidal non-inflam (Nsaid) Office Visit 07/21/2023 1:40p [facility] Luis Abrams I13.10 Hyp hrt & chr kdny dis w/o hrt fail, w stg 1-4/unsp chr kdny 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 Z79.1 custodial (current) use of non-steroidal non-inflam (Nsaid) N18.32 Chronic kidney disea se, stage 3b Office Visit 05/05/2023 2:40p [facility] Agustín roldan MD I13.10 Hyp hrt & chr kdny dis w/o hrt fail, w stg 1-4/unsp chr kdny N18.31 Chronic kidney disea se, stage 3a 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 Z79.1 custodial (current) use of non-steroidal non-inflam (Nsaid) Assessments Date Code Description Provider 05/23/2024 I13.10 Hypertensive hea rt and chronic kidney disease without heart failure, with stage 1 through stage 4 chronic kidney disease, or unspecified chronic kidney disease TERESO Orourke 05/23/2024 E11.21 Type 2 diabetes mellitus with diabetic nephropathy BLANCA OrourkeC 05/23/2024 Z79.1 custodial (curre nt) use of non-steroidal anti-inflammatories (Nsaid) TERESO Orourke 05/23/2024 N18.31 Chronic kidney disease, stag e 3a BLANCA OrourkeC 11/19/2023 I13.10 Hypertensive hea rt and chronic kidney disease without heart failure, with stage 1 through stage 4 chronic kidney disease, or unspecified chronic kidney disease TERESO Orourke 11/19/2023 E11.21 Type 2 diabetes mellitus with diabetic nephropathy TERESO Orourke 11/19/2023 Z79.1 terminal superintendent (curre nt) use of non-steroidal anti-inflammatories (Nsaid) TERESO Orourke 07/21/2023 I13.10 Hypertensive hea rt and chronic kidney disease without heart failure, with stage 1 through stage 4 chronic kidney disease, or unspecified chronic kidney disease Agustín Lacey MD 07/21/2023 E11.21 Type 2 diabetes mellitus with diabetic nephropathy Agustín Lacey MD 07/21/2023 Z79.1 custodial (curre nt) use of non-steroidal anti-inflammatories (Nsaid) Agustín Lacey MD 07/21/2023 N18.32 Chronic kidney disease, stahood e 3b Agustín Lacey MD 05/05/2023 I13.10 Hypertensive hea rt and chronic kidney disease without heart failure, with stage 1 through stage 4 chronic kidney disease, or unspecified chronic kidney disease Agustín Lacey MD 05/05/2023 N18.31 Chronic kidney disease, stag e 3a Agustín Lacey MD 05/05/2023 E11.21 Type 2 diabetes mellitus with diabetic nephropathy Agustín Lacey MD 05/05/2023 Z79.1 terminal superintendent (curre nt) use of non-steroidal anti-inflammatories (Nsaid) Agustín Lacey MD
--- OUTSIDE RECORDS SUMMARY | 2024-11-21 09:16 | XMS_ITS ---
Author Name SULEIMAN RAYMUNDO Address [address] [place] [address] [address] [place] [address] Phone Organization [facility] Address [address] [facility] [address] [place] [address] Phone Care Team Providers Care Termite Control Servicer Name Role Phone RAYMUNDOLENIN SULEIMAN Unavailable [phone] NKECHI HARRIS Unavailable ALLERGIES, ADVERSE REACTIONS AND [...] ever smoked Sex: Female CARE TEAM INFORMATION Termite Control Servicer Provider ID Role Location Phone NKECHI HARRIS [phone] [address] [place] [address] INSURANCE PROVIDERS Payer Name Policy type / Coverage type Covered libertarian ID Policy Solomon Leaderz Private Health Insurance [id number]
--- OUTSIDE RECORDS SUMMARY | 2024-11-21 09:29 | XMS_ITS | CCD ---
Author Organization [facility] Care Team Providers Care Belt Loop Maker Name Role Phone FOSTER, SHEN Unavailable Unavailable [...] Unavailable KAMILAH, DR SHELTON Falcon Admitting Unavailable KAMILAH, DR SHELTON Falcon Attending Unavailable BREE AMBROSE Primary Care Physician MD Bree Ambrose Primary Care Provider [phone] MD Fransisco Benavides Attending Provider DO Lalo Alvarado Emergency Provider MD Arley Keller Primary Care Provider Arley Keller MD Primary Care Provider [phone] Arley Keller Primary Care Physician [phone] Arley Keller Attending Unavailable Krishna Arley E. Admitting Unavailable Ross, Arley E. Attending Unavailable Arley Keller E. Attending Unavailable Krishna Arley E. Admitting Unavailable Krishna Arley E. Attending Unavailable Candelario, Micaela L Attending Unavailable Akkina, Agustín Admitting Unavailable Akkina, Agustín Attending Unavailable Akkina, Agustín Referring Unavailable Arley Keller E. Attending Unavailable Krishna Arley E. Admitting Unavailable Krishna Arley E. Attending Unavailable ZULMA VALDIVIAY A Attending Unavailable Arley Keller Attending Unavailable Arley Keller MD Primary Care Provider Fransisco Benavides MD Attending Provider [phone] Fransisco Benavides Admitting Unavailable Fransisco Benavides Attending Unavailable Arley Keller E Primary Care Unavailable Fransisco Benavides Attending Unavailable Arley Keller Primary Care Unavailable Fransisco Benavides Admitting Unavailable Arley Keller MD Primary Care Provider Arley Keller Attending Unavailable Alrey Keller E. Referring Unavailable Krishna, Arley E. Admitting Unavailable Arley Keller E. Attending Unavailable Krishna, Raley E. Admitting Unavailable ELTAHAWY, EHAB Attending Unavailable [...] adalimumab; Translations: [Humira] Drug Allergy Rash, Hives [facility] (7 sources) Hmg-Coa Reductase Inhibitors (Statins); Translations: [Statins] Allergy to drug (finding) [facility] Repository (20 sources) oxaprozin; Translations: [Daypro] Drug Allergy 09-22-19 23 INEFFECTIVE [facility] (3 sources) Antihistamine TABS; Translations: [Antihistamine TABS] Allergy to drug (finding) [facility]Gastro[facility] rology-[facility] ke [facility] Work Phone: (2 sources) black walnut pollen extract; Translations: [MDJIIHL-JHJ-AFM REDUCTASE INHIBITORS] Drug Allergy 12-14-19 14 [facility] Repository (2 sources) Diclofenac; Translations: [DICLOFENAC] Drug Allergy 04-09-19 15 [facility] (1 source) diphenhydrAMINE Drug Allergy 01-05-20 13 [facility] (1 source) oxaprozin Drug Allergy 01-05-20 13 [facility] (13 sources) diphenhydrAMINE; Translations: [diphenhydramine] Drug Allergy 09-22-19 VERY FOGGY BRAIN [facility] (20 sources) HMG-CoA reductase inhibitor; Translations: [statins] Drug allergy 03-03-20 17 MUSCLE CRAMPS [facility] (20 sources) adalimumab; Translations: [adalimumab] Drug Allergy 09-22-19 [facility] (4 sources) Antihistamines - Alkylamine; Translations: [Antihistamines - Alkylamine] Allergy to substance 04-08-19 24 [facility] (20 sources) Acetaminophen / oxyCODONE; Translations: [OXYCODONE-ACETAMIN OPHEN] Drug Allergy 03-03-20 17 Nausea And Vomiting [facility] (20 sources) Diclofenac Drug Allergy 09-22-19 [facility] (20 sources) diphenhydrAMINE Drug Allergy 09-22-19 [facility] (20 sources) Other Allergy to substance 09-22-19 [facility] (1 source) oxaprozin; Translations: [OXAPROZIN] Drug Allergy 09-22-19 [facility] Repository Medications Current Medications Medication Drug Class(es) Dates Sig (Normalized) Sig (Original) 3 ML semaglutide 1.34 MG/ML Pen Injector [Ozempic] (5 sources) Start: 08-31-2024 inject 1 mg by subcutaneous injection every week Ozempic (1 mg dose) 4 mg/3 mL subcutaneous solution See Instructions, INJECT SUBCUTANEOUSLY 1 MG EVERY WEEK, # 9 mL, Refills(s) 3, Pharmacy: [facility]/pharmacy #[id number], 160, cm, 08/31/24 11:11:00 EDT, Height/Length [...] qWeek, # 9 mL, Refills(s) 0, Pharmacy: [facility]/pharmacy #[id number], 160, cm, 02/29/24 9:24:00 EST, Height/Length Dosing, 92.1, kg, 02/29/24 9:24:00 EST, Weight Dosing Start Date: 04/28/24 Status: Ordered acetaminophen 325 mg / HYDROcodone bitartrate 5 mg oral tablet (1 source) Opioid Agonist Start: 01-20-2021 [place] 325 mg-5 mg oral tablet 1 tab(s), Oral, q6hr for pain, 20 tab(s), Refill(s) 0, [facility]/pharmacy #[id number], 162, cm, 01/14/21 5:03:00 EDT, [...] Blood Gluc Sensor (FreeStyle Denny 2 Sensor) [facility] (2 sources) Start: 02-03-2023 Continuous Blood Gluc Sensor (FreeStyle Denny 2 Sensor) [facility] Continuous Glucose Director Skills (FreeStyle Denny 3 [place]) device (18 sources) Start: 08-11-2023 Continuous Glucose Director Skills (FreeStyle Denny 3 [place]) device 08/11/2023 Active Continuous Glucose Sensor (FreeStyle Denny 3 Sensor) [facility] (11 sources) Start: 06-27-2024 Continuous Glucose Sensor (FreeStyle Denny 3 Sensor) [facility] 06/27/2024 Active CPAP supplies - Mask, tubing, [...] in, Eye-Both, QID, 3.5 gram, Refill(s) 1, [facility]/pharmacy #[id number], 162, cm, 01/14/21 5:03:00 EDT, Height/Length Dosing, 100, kg, 01/14/21 5:03:00 EDT, Weight Dosing Start Date: 01/20/21 Status: Ordered 1 ml etanercept 50 mg/ml prefilled syringe (20 sources) Tumor Necrosis Factor Keenan Start: 05-09-2024 Enbrel Prefilled Syringe 50 mg/mL subcutaneous solution See Instructions, INJECT 1 SYRINGE SUBCUTANEOUSLY WEEKLY, # 4 mL, Refills(s) 0, [id number], cm, 08/31/24 11:11:00 EDT, Height/Length [...] 12 EA, 4, to check BS e11.22, [facility]/pharmacy #[id number], Supply, 160, cm, 02/29/24 9:24:00 EST, Height/Length Dosing, 92.1, kg, 02/29/24 9:24:00 EST, Weight Dosing Start Date: 04/18/24 Status: Ordered fresstyle denny 3+ sensors (2 sources) Start : 08-31 fresstyle denny 3+ sensors fresstyle denny 3+ sensors, See Instructions, 12 EA, 4, to check BS e11.22, [facility]/pharmacy #[id number], Supply, 160, cm, 08/31/24 11:11:00 EDT, [...] DAILY, # 160 tab(s), Refills(s) 3, Pharmacy: [facility]/pharmacy #[id number], 160, cm, 08/31/24 11:11:00 EDT, Height/Length [...] Daily, # 90 tab(s), Refills(s) 3, Pharmacy: [facility], 160, cm, 02/29/24 9:24:00 EST, Height/Length Dosing, 92.1, kg, 02/29/24 9:24:00 EST, Weight Dosing Start Date: 05/09/24 Status: Ordered Quantity: 90.0 Unit: tab(s) Repeat number: 4 Start: 10-18-2023 take 2.5 mg by mouth once daily lisinopril 5 mg Tab 2.5 mg = 0.5 tab(s), Oral, Daily, # 90 tab(s), Refills(s) 3, Pharmacy: [facility], [facility] 160, cm, 08/31/23 9:10:00 EDT, Height/Length Dosing, 88.4, kg, 08/31/23 9:10:00 EDT, Weight Dosing Start Date: 10/18/23 Status: Ordered Start: 04-27-2023 lisinopril 5 M G tablet Start: 01-25-2023 take 2.5 mg by mouth once daily lisinopril 5 mg Tab 2.5 mg = 0.5 tab(s), Oral, Daily, # 90 tab(s), Refills(s) 3, Pharmacy: [facility], 160, cm, 12/08/22 10:18:00 EDT, Height/Length [...] day(s), # 14 cap(s), Refills(s) 0, Pharmacy: [facility]/pharmacy #[id number], 162, cm, 06/30/22 15:22:00 EDT, [...] Daily, # 90 tab(s), Refills(s) 4, Pharmacy: [facility], 160, cm, 02/29/24 9:24:00 EST, Height/Length [...] DAILY, # 90 tab(s), Refills(s) 3, Pharmacy: [facility]/pharmacy #[id number], 160, cm, 08/31/24 11:11:00 EDT, Height/Length [...] mg, SubCutaneous, qWeek, 9 mL, Refill(s) 3, [facility], 160, cm, 12/08/22 10:18:00 EDT, Height/Length [...] sources) Long-term current use of insulin; Translations: [terminologist (current) use of insulin] 06-07-2024 Episodic Other [...] 09:02:00 EDT Subject: done pt scheduled 12/15 [facility] No Panel Informationon 11-06 Complexity: Intermediate [...] uncontrollable bleeding, or complications. Dressing type: bandage [facility] Lesion length (cm): 0.7 Lesion width (cm): [...] ml Estimated blood loss: < 1.0 ml [facility] Orders Onlyon 10-11-2024 Orders Only [id number] Lj Doll 1955 F Date Provider Department Center 10/11/2024 [facility]-OMER ACEVEDO Family History Problem Relation Age of Onset Coronary artery disease Mother Coronary artery disease Father Brain cancer Brother Family Status - Relation Status Age at Mother Father Brother Normal [facility] No Panel Informationon 09-29 Type of [...] Photo taken Amount of lidocaine used: 1cc [facility] PVR Lower EXT Complete Bi laton [...] Major depressive disorder in remission CAD in grindstone artery Disorder of arteries and arterioles, unspecified [...] Follow-Up Appointments Wednesday 1:00 PM EDT Where: [address] [address]- You Need to Complete the Following US PVR Lower EXT Complete Bilat, 08/31/24, Routine, Order for future visit, Transport Mode: Ambulatory, Reason: Leg pain, No, Disorder of arteries and arterioles, unspecified, pp_set_radiology_sub specialty, Required & Missing, [facility] Someone Will Contact You Regarding These Appointments [facility] [place] Ambulatory Referral, Rheumatology, 08/31/24 11:45:00 EDT, Anemia of chronic disease 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 RA (rheumatoid arthritis) Long-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 Medications What How Much When Why Instructions New Misc Prescription (fresstyle denny 3+ sensors) See instructions Refills: 4 to check BS e11.22 Pickup at [facility]/pharmacy #[id number] Unchanged etanercept (Enbrel Prefilled Syringe 50 mg/ mL subcutaneous solution) See instructions INJECT 1 SYRINGE SUBCUTANEOUSLY WEEKLY Pickup at [facility]/pharmacy #[id number] Unchanged hydroxychloroquine (hydroxychloroquine 200 mg Tab) See instructions TAKE 1 TABLET BY MOUTH TWICE DAILY Pickup at [facility]/pharmacy #[id number] Unchanged rosuvastatin (rosuvastatin 20 mg Tab) See instructions TAKE 1 TABLET BY MOUTH DAILY Pickup at [facility]/pharmacy #[id number] Unchanged semaglutide (Ozempic (1 mg dose) 4 mg/ 3 mL subcutaneous solution) See instructions INJECT SUBCUTANEOUSLY 1 MG EVERY WEEK Pickup at [facility]/pharmacy #6177 Unchanged amitriptyline (amitriptyline 25 mg Tab) [...] Mout (more content not included)... Normal [facility] CBC w/ Auto Diffon 5 Basophil Absolute 0.1 E9/L Normal 0.0-0.2 [facility] Comment on above: Performed By: #### 2 [id number] #### [facility] [address] [place] [address] Basophils/100 WBC (Bld) 1.1 % Normal 0.0-2.0 [facility] Comment on above: Performed By: #### 2 [id number] #### [facility] [address] [place] [address] Eos Absolute 0.3 E9/L Normal 0.0-0.5 [facility] Comment on above: Performed By: #### 2 [id number] #### [facility] [address] [place] [address] Eosinophils/100 WBC (Bld) 3.2 % Normal 0.0-8.0 [facility] Comment on above: Performed By: #### 2 [id number] #### [facility] [address] [place] [address] Erythrocyte distribution width (RBC) [Ratio] 14.3 % High 10.9-14.2 [facility] Comment on above: Performed By: #### 2 [id number] #### [facility] [address] [place] [address] Hematocrit (Bld) [Volume fraction] 40.2 % Normal 34.0-46.0 [facility] Comment on above: Performed By: #### 2 [id number] #### [facility] [address] [place] [address] Hemoglobin (Bld) [Mass/Vol] 13.3 g/dL Normal 12.0-16.0 [facility] Comment on above: Performed By: #### 2 [id number] #### [facility] [address] [place] [address] Lymph Absolute 2.8 E9/L Normal 1.0-4.0 [facility] Comment on above: Performed By: #### 2 [id number] #### [facility] [address] [place] [address] Lymphocytes/100 WBC (Bld) 30.6 % Normal 14.0-50.0 [facility] Comment on above: Performed By: #### 2 [id number] #### [facility] [address] [place] [address] MCH (RBC) [Entitic mass] 28.6 pg Normal 27.0-34.0 [facility] Comment on above: Performed By: #### 2 [id number] #### [facility] [address] [place] [address] MCHC (RBC) [Mass/Vol] 33.1 g/dL Normal 31.4-36.0 [facility] Comment on above: Performed By: #### 2 [id number] #### [facility] [address] [place] [address] MCV (RBC) [Entitic vol] 86.3 fL Normal 80.0-100.0 [facility] Comment on above: Performed By: #### 2 [id number] #### [facility] [address] [place] [address] Traill Absolute 0.9 E9/L Normal 0.2-1.0 [facility] Comment on above: Performed By: #### 2 [id number] #### [facility] [address] [place] [address] Monocytes/100 WBC (Bld) 9.3 % Normal 4.0-14.0 [facility] Comment on above: Performed By: #### 2 [id number] #### [facility] [address] [place] [address] Neutro Absolute 5.1 E9/L Normal 2.0-7.5 [facility] Comment on above: Performed By: #### 2 [id number] #### [facility] [address] [place] [address] Neutro Auto 55.8 % Normal 36.0-75.0 [facility] Comment on above: Performed By: #### 2 [id number] #### [facility] [address] [place] [address] Platelet 298.0 E9/L Normal 150.0-500.0 [facility] Comment on above: Performed By: #### 2 [id number] #### [facility] [address] [place] [address] Platelet mean volume (Bld) [Entitic vol] 7.4 fL Normal 6.4-10.8 [facility] Comment on above: Performed By: #### 2 [id number] #### [facility] [address] [place] [address] RBC 4.7 E12/L Normal 4.3-5.9 [facility] Comment on above: Performed By: #### 2 [id number] #### [facility] [address] [place] [address] WBC 9.2 E9/L Normal 4.0-11.0 [facility] Comment on above: Performed By: #### 2 [id number] #### [facility] [address] [place] [address] CHEMISTRYOrdered By: SYSTEM SYSTEM on 08-31-2024 Albumin [...] (Bld) [Mass fraction] 7.3 % High <=5.9% [facility] ChemAutoSS CMPon 08-31-2024 Albumin [Mass/Vol] 4.5 g/dL Normal 3.3-5.0 [facility] Comment on above: Performed By: #### 2 [id number] #### [facility] [address] [place] [address] Albumin/Globulin [Mass ratio] 1.5 {ratio} Normal 1.1-2.2 [facility] Comment on above: Performed By: #### 2 [id number] #### [facility] [address] [place] [address] Alk Phos 90 Int._Unit/L Normal 21-98 [facility] Comment on above: Performed By: #### 2 [id number] #### [facility] [address] [place] [address] ALT 32 Int._Unit/L Normal 6-46 [facility] Comment on above: Performed By: #### 2 [id number] #### [facility] [address] [place] [address] Anion gap [Moles/Vol] 13 mmol/L Normal 6-16 [facility] Comment on above: Performed By: #### 2 [id number] #### [facility] [address] [place] [address] AST 33 Int._Unit/L Normal 5-43 [facility] Comment on above: Performed By: #### 2 [id number] #### [facility] [address] [place] [address] Bili Total 0.3 mg/dL Normal 0.0-1.1 [facility] Comment on above: Performed By: #### 2 [id number] #### [facility] [address] [place] [address] BUN/Creat Ratio 24 No Units High 10-20 [facility] Comment on above: Performed By: #### 2 [id number] #### [facility] [address] [place] [address] Calcium [Mass/Vol] 9.4 mg/dL Normal 8.9-11.1 [facility] Comment on above: Performed By: #### 2 [id number] #### [facility] [address] [place] [address] Chloride [Moles/Vol] 107 mmol/L Normal 101-111 [facility] Comment on above: Performed By: #### 2 [id number] #### [facility] [address] [place] [address] CO2 [Moles/Vol] 22 mmol/L Normal 21-31 [facility] Comment on above: Performed By: #### 2 [id number] #### [facility] [address] [place] [address] Creatinine [Mass/Vol] 0.9 mg/dL Normal 0.5-1.3 [facility] Comment on above: Performed By: #### 2 [id number] #### [facility] [address] [place] [address] Globulin (S) [Mass/Vol] 3.0 g/dL Normal 1.4-4.0 [facility] Comment on above: Performed By: #### 2 [id number] #### [facility] [address] [place] [address] Glucose [Mass/Vol] 136 mg/dL Normal 55-199 [facility] Comment on above: Performed By: #### 2 [id number] #### [facility] [address] [place] [address] Potassium [Moles/Vol] 4.3 mmol/L Normal 3.5-5.3 [facility] Comment on above: Performed By: #### 2 [id number] #### [facility] [address] [place] [address] Protein [Mass/Vol] 7.5 g/dL Normal 6.0-7.8 [facility] Comment on above: Performed By: #### 2 [id number] #### [facility] [address] [place] [address] Sodium [Moles/Vol] 138 mmol/L Normal 135-145 [facility] Comment on above: Performed By: #### 2 [id number] #### [facility] [address] [place] [address] Urea nitrogen [Mass/Vol] 22 mg/dL High 5-21 [facility] Comment on above: Performed By: #### 2 [id number] #### [facility] [address] [place] [address] Family Medicine Office/Clini c Noteon 08-31-2024 Family [...] % (02/29/24 10:02:00) Referred to Cardiology @ [facility]. June 02 was her visit with him Knee brace recommended at [facility] due ro effusion of Lt knee. [...] rheumatoid arthritis and is currently without a database support; Enbrel is needed for ongoing management. - [...] CBC w/ Auto Diff Comprehensive Metabolic Panel [facility] [place] Ambulatory Referral HgbA1c Lipid Panel Urine Microalbumin/Creatin ine Ratio 2. Stage 2 chronic kidney disease (N18.2: Chronic kidney disease, stage 2 (mild)) - Will recheck today Ordered: CBC w/ Auto Diff Comprehensive Metabolic Panel [facility] [place] Ambulatory Referral HgbA1c Lipid Panel Urine Microalbumin/Creatin ine Ratio 3. 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 Ordered: CBC w/ Auto Diff Comprehensive Metabolic Panel [facility] [place] Ambulatory Referral HgbA1c Lipid Panel Urine Microalbumin/Creatin ine Ratio 4. RA (rheumatoid arthritis) (M06.9: Rheumatoid arthritis, unspecified) - Refill Enbrel and refer to a database support. Ordered: CBC w/ Auto Diff Comprehensive Metabolic Panel [facility] External Ambulatory Referral HgbA1c Lipid Panel Urine Microalbumin/Creatin ine Ratio 5. Long-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 (Z79.4: terminologist (current) use of insulin) - Follows with Endo Ordered: CBC w/ Auto Diff Comprehensive Metabolic Panel [facility] [place] Ambulatory Referral HgbA1c Lipid Panel Urine Microalbumin/Creatin ine Ratio 6. Major depressive disorder in remission (F32.5: Major depressive disorder, single episode, in full remission) - Monitor mental health. Ordered: CBC w/ Auto Diff Comprehensive Metabolic Panel HgbA1c Lipid Panel Urine Microalbumin/Creatin ine Ratio 7. 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 Ordered: CBC w/ Auto Diff Comprehensive Metabolic Panel HgbA1c Lipid Panel Urine Microalbumin/Creatin ine Ratio 8. 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 - Screening showed abnormal readings. Ordered: US PVR Lower EXT Complete Bilat Orders: etanercept, See Instructions, INJEC (more content not included)... Normal [facility] Comment on above: Result Comment: Elec tronically [...] Normal 4.0 - 11.0 E9/L Remisol Heme [id number] 08-31-2024 HbA1c (Bld) [Mass fraction] 7.3 % High <=5.9 [facility] Comment on above: Performed By: #### 7 [id number] #### [facility] [address] [place] [address] Lipid Panelon 08-31-2024 Cholesterol [Mass/Vol] 153 mg/dL Normal 120-200 [facility] Comment on above: Performed By: #### 2 [id number] #### [facility] [address] [place] [address] Cholesterol in HDL [Mass/Vol] 66 mg/dL Invalid Interpretation Code [facility] Comment on above: Result Comment: '>= 60 LOW RISK' '<= 40 HIGH RISK' Performed By: #### 2 [id number] #### [facility] [address] [place] [address] Cholesterol in LDL [Mass/Vol] 63 mg/dL Normal <=129 [facility] Comment on above: Performed By: #### 2 [id number] #### [facility] [address] [place] [address] Cholesterol in VLDL [Mass/Vol] 27 mg/dL Normal 7-40 [facility] Comment on above: Performed By: #### 2 [id number] #### [facility] [address] [place] [address] Triglyceride [Mass/Vol] 135 mg/dL Normal <=149 [facility] Comment on above: Performed By: #### 2 [id number] #### [facility] [address] [place] [address] U MA/Cr Ratioon 08-31-2024 Microalb/Cr Ratio 155.8 mg/gm Cr High .0-30.0 [facility] Comment on above: Result Comment: 30-3 00 mg/g Cr indicates an increased risk for diabetic nephropathy. >300 mg/g Cr is consistent with clinical nephropathy. Performed By: #### 1 [id number] #### [facility] [address] [place] [address] U Creatinine 30.8 mg/dL Invalid Interpretation Code [facility] Comment on above: Performed By: #### 1 [id number] #### [facility] [address] [place] [address] U Microalb 4.8 mg/dL High 0.0-1.9 [facility] Comment on above: Performed By: #### 1 [id number] #### [facility] [address] [place] [address] eGFRon 08-31-2024 eGFR 68 mL/min/1.73 m2 Normal >=59 [facility] Comment on above: Performed By: #### 1 [id number] #### [facility] [address] [place] [address] Pre-Visit Planningon 025 Pre-Visit Planning Pre-Visit Planning - From: Lorenza HERRING, Rso To: Krishna SIMENTAL, Arley Heredia; Sent: 08/30/2024 13:13:07 EDT Subject: Pre-Visit Planning Due Date/Time: 08/30/2024 13:13:00 EDT Caller Name: LJ DOLL; Caller Number: , Ia Dr. Keller, *Based on your response below, [...] feel free to contact me at extension [phone]. Thank you! Ros Britt, BENITON, RN, CCM, CCDS, CCDS-O CDI [employer] [address] [address] P: [phone] F: [phone] [email or web address] - From: Arley Keller MD To: Ros Britt RN; Sent: 08/30/2024 13:43:36 EDT Subject: RE: Pre-Visit Planning Caller Name: LJ DOLL; Caller Number: H , M - Anemia of chronic disease Normal [facility] Pre-Visit Planning Pre-Visit Planning - From: Ros Britt RN To: Arley Keller MD; Sent: 08/30/2024 13:06:40 EDT Subject: Pre-Visit Planning Due Date/Time: 08/30/2024 13:06:00 EDT Caller Name: GINO DOLLLY; Caller Number: H , M Ia Dr. Keller, *Based on your response below, [...] feel free to contact me at extension [phone]. Thank you! Ros Britt, ANGELA, RN, CCM, CCDS, CCDS-O CDI [employer] [address] [address] P: [phone] F: [phone] [email or web address] - From: Krishna SIMENTAL, Arley Heredia To: Lorenza HERRING, Ros; Sent: 08/30/2024 13:11:55 EDT Subject: RE: Pre-Visit Planning Caller Name: LJ DOLL; Caller Number: , -Chronic kidney disease stage 2 Normal [facility] Myocardial Spect Rest/Str ess 1 Dayon 06-19-2024 [place] Myocardial Spect Rest/Stress 1 Day Exam Date/Time: 06/15/2024 11:20 EDT Reason for Exam: I25.10;CAD Coronary artery disease Report [address] [address] Nuclear Stress Report Name: LJ DOLL Study Date: 06/15/2024 09:06 AM Patient Location: [facility] Amb[place] [facility] 1955 (M/d/yyyy) Gender: Female Age: 69 yrs Ethnicity: [facility] Reason For Study: I25.10;CAD Coronary artery disease Ordering Physician: Randolph Shah Referring Physician: Randolph Shha Protocol 88103 Pharmacologic Lexiscan stress with Isotope. Study Protocol: [...] Signed by: Andrey Kaminski MD Transcribed by: [facility] Technologist: GARDENIA Taylor [facility] Glucose (Bld) [Mass/Vol]on 0 06-07-2024 Glucose Blood, POC 193 mg/dL [facility] - Hematology and Cell countson 06-07-2024 HbA1c (Bld) [Mass fraction] 7 % [facility] No Panel Informationon 06-07 Interpretation and review of laboratory results Normal [facility] Heart and Vascular Office/Cl inic Noteon 06-02-2024 Heart and Vascular Office/Clinic Note Heart and Vascular Office/Clinic Note Chief Complaint New Pt Establish Care History of Present Illness The patient is a very pleasant 69-year-old female with past medical history of diabetes, dyslipidemia, coronary artery disease with PCI in 2017 at [facility] with a 3.0 x 32 mm [...] or concerning lesions Assessment/Plan 1. 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 Normal [facility] Comment on above: Result Comment: Elec tronically Signed By: Pablo SIMENTAL, Randolph De Souza\.br\Date and Time Signed: 06/02/24 11:43 EST Basic Metabolic Panelon 04-06 Anion gap [Moles/Vol] 12.2 mmol/L Normal 6.0-15.0 [facility] Comment on above: Performed By: #### P HOS, BMP, MG #### [facility] [address] [place] [address] [place] Calcium [Mass/Vol] 9.5 mg/dL Normal 8.6-10.3 [facility] Comment on above: Performed By: #### P HOS, BMP, MG #### [facility] [address] [place] [id number] [place] Chloride [Moles/Vol] 105 mmol/L Normal 98-107 [facility] Comment on above: Performed By: #### P HOS, BMP, MG #### [facility] [address] [place] [id number] [place] CO2 [Moles/Vol] 29.0 mmol/L Normal 21.0-31.0 [facility] Comment on above: Performed By: #### P HOS, BMP, MG #### [facility] [address] [place] [id number] [place] Creatinine [Mass/Vol] 0.95 mg/dL Normal 0.60-1.20 [facility] Comment on above: Performed By: #### P HOS, BMP, MG #### [facility] [address] [place] [id number] [place] GFR/1.73 sq M.predicted MDRD (S/P/Bld) [Vol rate/Area] mL/min/{1.73_m2} Normal [facility] Comment on above: Performed By: #### P HOS, BMP, MG #### [facility] [address] Glucose [Mass/Vol] 141 mg/dL High 70-100 [facility] Comment on above: Result Comment: [place] Glucose Reference Range is dependent on time and content of last meal. Glucose of more than 200 mg/dL in a nonstressed, ambulatory subject supports the diagnosis of Diabetes Mellitus. ADA recommended reference range Performed By: #### P HOS, BMP, MG #### [facility] [address] Potassium [Moles/Vol] 4.2 mmol/L Normal 3.5-5.1 [facility] Comment on above: Performed By: #### P HOS, BMP, MG #### [facility] [address] Sodium [Moles/Vol] 142 mmol/L Normal 136-145 [facility] Comment on above: Performed By: #### P HOS, BMP, MG #### [facility] [address] Urea nitrogen [Mass/Vol] 20 mg/dL Normal 7-25 [facility] Comment on above: Performed By: #### P HOS, BMP, MG #### [facility] [address] Calcium [Mass/volume] in Ser um or PlasmaOrdered By: Fransisco Benavides on 04-25-2024 Calcium [Mass/Vol] Calcium [Mass/volume] in Serum or Plasma 8.6-10.3 [facility] Carbon dioxide, total [Moles /volume] in Serum or PlasmaOrdered By: Fransisco Benavides on 04-25-2024 CO2 [Moles/Vol] Carbon dioxide, total [Moles/volume] in Serum or Plasma 21.0-31.0 [facility] Chloride [Moles/volume] in S melvin or PlasmaOrdered By: Fransisco Benavides on 04-25-2024 Chloride [Moles/Vol] Chloride [Moles/volume] in Serum or Plasma 98-107 [facility] Creatinine [Mass/volume] in Serum or PlasmaOrdered By: Fransisco Benavides on 04-25-2024 Creatinine [Mass/Vol] Creatinine [Mass/volume] in Serum or Plasma 0.60-1.20 [facility] Glucose [Mass/volume] in Ser um or PlasmaOrdered By: Fransisco Benavides on 04-25-2024 Glucose [Mass/Vol] Glucose [Mass/volume] in Serum or Plasma High 70-100 [facility] Comment on above: ADA recommended refe rence rangeRandom Glucose Reference Range is dependent on time and content of last meal. Glucose of more than 200 mg/dL in a nonstressed, ambulatory subject supports the diagnosis of Diabetes Mellitus. Magnesiumon 04-25-2024 Magnesium [Mass/Vol] 1.6 mg/dL Low 1.9-2.7 [facility] Comment on above: Result Comment: PERF ORMED BY: [place] [address] PATHOLOGIST [employer]VERWARE SUPERVISOR CHACORTA WALKER M.D. Performed By: #### P HOS, BMP, MG #### [address] Magnesium [Mass/volume] in S melvin or PlasmaOrdered By: Fransisco Benavides on 04-25-2024 Magnesium [Mass/Vol] Magnesium [Mass/volume] in Serum or Plasma Low 1.9-2.7 [facility] No Panel InformationOrdered By: Fransisco Benavides on 04-25-2024 Estimated GFR (CKD-EPI) > 60.0 mL/Min [facility] Creatinine Clearance (Chem N/A [facility] Phosphate [Mass/volume] in S melvin or PlasmaOrdered By: Fransisco Benavides on 04-25-2024 Phosphate [Mass/Vol] Phosphate [Mass/volume] in Serum or Plasma 2.5-4.5 [facility] Phosphoruson 04-25-2024 Phosphate [Mass/Vol] 3.1 mg/dL Normal 2.5-4.5 [facility] Comment on above: Performed By: #### P HOS, BMP, MG #### [facility] [address] [place] [id number] [facility] Potassium [Moles/volume] in Serum or PlasmaOrdered By: Fransisco Benavides on 04-25-2024 Potassium [Moles/Vol] Potassium [Moles/volume] in Serum or Plasma 3.5-5.1 [facility] Serum or plasma anion gap de terminationOrdered By: Fransisco Benavides on 04-25-2024 Anion gap [Moles/Vol] Serum or plasma anion gap determination 6.0-15.0 [facility] Sodium [Moles/volume] in Ser um or PlasmaOrdered By: Fransisco Benavides on 04-25-2024 Sodium [Moles/Vol] Sodium [Moles/volume] in Serum or Plasma 136-145 [facility] Urea nitrogen [Mass/volume] in Serum or PlasmaOrdered By: Fransisco Benavides on 04-25-2024 Urea nitrogen [Mass/Vol] Urea nitrogen [Mass/volume] in Serum or Plasma 7-25 [facility] Ambulatory Visit Summaryon 1 04-30-2023 Ambulatory [...] Keller MD This Is Your Medications List [facility] Prescription (CPAP supplies - Mask, tubing, connectors) [...] SIMENTAL, Randolph De Souza Where: [facility] Wednesday 9:15 AM EDT With: Krishna SIMENTAL, Arley Heredia Where: [address] [address]- Wednesday 1:00 PM EDT With: Where: [address] [address]- Medications What How Much When [...] dislocation of shoulder BMI 34.0-34.9,adult 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 Normal [facility] Family Medicine Office/Clini c Noteon 02-29-2024 Family [...] which she underwent a sleep study at [facility] overseen by Dr. Newsome. The exact [...] monitoring of renal function. Ordered: A1c POC 99061 Body Mass Index (BMI) documented 3008F Current [...] to ensure diabetic control. Ordered: A1c POC 47950 Body Mass Index (BMI) documented 3008F Current [...] and response to treatment. Ordered: A1c POC 98770 Body Mass Index (BMI) documented 3008F Current tobacco non-user 1036F Depression Screening Negative 3352F Influenza immunization administered or previously received 4274F Most recent diastolic blood pressure 80-89 mm Hg 3079F Patient screen for fall risk: no falls in last y (more content not included)... Normal [facility] Comment on above: Result Comment: Elec tronically Signed By: Arley Keller MD\.br\Date and Time Signed: 02/29/24 10:44 EST .Interpretation:on HCV Ab IA Ql Comment Invalid Interpretation Code [facility] Comment on above: Result Comment: Not infected with HCV unless early or acute infection is suspected (which may be delayed in an immunocompromised individual), or other evidence exists to indicate HCV infection. Performed at: [facility] [address] [id number] PhD Micah Wilson Performed By: #### 2 [id number] #### [facility] [address] [place] [address] HCV Antibody RFX to [facility] [place] 12-23-2023 HCV IgG IA Ql Non-Reactive Invalid Interpretation Code Non Reactive [facility] Comment on above: Result Comment: Perf ormed at: [facility] [address] [id number] PhD Micah Wilson Performed By: #### 2 [id number] #### [facility] [address] [place] [address] Ambulatory Visit Summaryon 0 12-16-2023 Ambulatory Visit [...] Appointments Wednesday 11:20 AM EDT With: Where: [place] [id number]- Wednesday 9:15 AM EST With: Krishna SIMENTAL, Arley Heredia Where: [address] [address]- Wednesday 1:00 PM EDT With: Where: [address] [address]- You Need to Complete the [...] breast cancer, pp_set_radiology_sub specialty, Required & Missing, [facility] Medications What How Much When Why Instructions [...] (Reclast) Int (more content not included)... Normal [facility] Medicine Office/Clini c Noteon 12-16-2023 Family Medicine [...] of clutter to prevent tripping and/or falling. [place] Advance Directives reviewed. Documents scanned into chart. [...] as directed. 5. 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 Normal [facility] Comment on above: Result Comment: Elec tronically Signed By: RICKY VALDIVIA CNP\.br\Date and Time Signed: 12/16/23 16:18 EDT\.br\Electronically Co-Signed By: Ling Garber\.br\Date and Time Co-Signed: 12/16/23 16:03 EDT Office Visiton 11-08-2023 Follow-up visit [id number] Lj Doll 1955 F Date Provider Department Center 11/08/2023 [facility] Family History Problem Relation Age of Onset Coronary artery disease Mother Coronary artery disease Father Brain cancer Brother Family Status - Relation Status Age at Mother Father Brother Level of Service:83205 [place] OFFICE/OUTPATIENT ESTABLISHED LOW MDM 20 MIN Normal [facility] - Clinical Noteon Retail - Clinical Note [id number] 1.00TIFF Normal [facility] Consultation Noteon 09-17-19 Consultation Note [id number] #1.00TIFF Normal [facility] Ambulatory Visit Summaryon 0 08-31-2023 Ambulatory Visit [...] Appointments Wednesday 9:30 AM EDT With: Where: [address] \.br\ Medications\.br\ What How Much When [...] Anemia\.br\ Anterior dislocation of shoulder\.br\ 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 This can be done either in American (U.S.) or metric measurements. Note that charts and online BMI calculators are available to help you find your BMI quickly and easily without having to do these calculations yourself.\.br\ To calculate your BMI in American (U.S.) measurements:\.br\ \.br\ 1. \.br\ Measure your [...] interpreted in the same way for [facility] CBC w/ Auto Diffon 4 Basophils/100 WBC (Bld) 0.7 % Normal 0.0-2.0 [facility] Comment on above: Performed By: #### 2 [id number] #### [facility] [address] [place] [address] Basophils/Leukocytes Auto (Bld) [Pure # fraction] 0.1 E9/L Normal 0.0-0.2 [facility] Comment on above: Performed By: #### 2 [id number] #### [facility] [address] [place] [address] Eosinophils (Bld) [#/Vol] 0.3 E9/L Normal 0.0-0.5 [facility] Comment on above: Performed By: #### 2 [id number] #### [facility] [address] [place] [address] Eosinophils/100 WBC (Bld) 4.3 % Normal 0.0-8.0 [facility] Comment on above: Performed By: #### 2 [id number] #### [facility] [address] [place] [address] Erythrocyte distribution width (RBC) [Ratio] 13.5 % Normal 10.9-14.2 [facility] Comment on above: Performed By: #### 2 182447 #### [facility] [address] [place] [address] Hematocrit (Bld) [Volume fraction] 35.6 % Normal 34.0-46.0 [facility] Comment on above: Performed By: #### 2 255899 #### [facility] [address] [place] [address] Hemoglobin (Bld) [Mass/Vol] 11.7 g/dL Low 12.0-16.0 [facility] Comment on above: Performed By: #### 2 070717 #### [facility] [address] [place] [address] Lymphocytes (Bld) [#/Vol] 2.4 E9/L Normal 1.0-4.0 [facility] Comment on above: Performed By: #### 2 [id number] #### [facility] [address] [place] [address] Lymphocytes/100 WBC (Bld) 32.9 % Normal 14.0-50.0 [facility] Comment on above: Performed By: #### 2 128020 #### [facility] [address] [place] [address] MCH (RBC) [Entitic mass] 28.4 pg Normal 27.0-34.0 [facility] Comment on above: Performed By: #### 2 640809 #### [facility] [address] [place] [address] MCHC (RBC) [Mass/Vol] 32.8 g/dL Normal 31.4-36.0 [facility] Comment on above: Performed By: #### 2 321790 #### [facility] [address] [place] [address] MCV (RBC) [Entitic vol] 86.7 fL Normal 80.0-100.0 [facility] Comment on above: Performed By: #### 2 123326 #### [facility] [address] [place] [address] Monocytes (Bld) [#/Vol] 0.6 E9/L Normal 0.2-1.0 [facility] Comment on above: Performed By: #### 2 785046 #### [facility] [address] [place] [address] Neutrophils (Bld) [#/Vol] 4.0 E9/L Normal 2.0-7.5 [facility] Comment on above: Performed By: #### 2 198448 #### [facility] [address] [place] [address] Neutrophils/100 WBC (Bld) 53.8 % Normal 36.0-75.0 [facility] Comment on above: Performed By: #### 2 291188 #### [facility] [address] [place] [address] Platelet mean volume (Bld) [Entitic vol] 7.9 fL Normal 6.4-10.8 [facility] Comment on above: Performed By: #### 2 166767 #### [facility] [address] [place] [address] Platelets (Bld) [#/Vol] 279.0 E9/L Normal 150.0-500.0 [facility] Comment on above: Performed By: #### 2 059216 #### [facility] [address] [place] [address] RBC (Bld) [#/Vol] 4.1 E12/L Low 4.3-5.9 [facility] Comment on above: Performed By: #### 2 248471 #### [facility] [address] [place] [address] WBC corrected for nucl RBC Auto (Bld) [#/Vol] 7.4 E9/L Normal 4.0-11.0 [facility] Comment on above: Performed By: #### 2 [id number] #### [facility] [address] [place] [address] CHEMISTRYOrdered By: SYSTEM SYSTEM on 08-31-2023 Albumin [...] (Bld) [Mass fraction] 6.8 % High <=5.9% [facility] ChemAutoSS CMPon 08-31-2023 Albumin [Mass/Vol] 4.1 g/dL Normal 3.3-5.0 [facility] Comment on above: Performed By: #### 2 096448 #### [facility] [address] [place] [address] Albumin/Globulin (S) [Mass conc ratio] 1.4 Normal 1.1-2.2 [facility] Comment on above: Performed By: #### 2 350356 #### [facility] [address] [place] [address] ALP [Catalytic activity/Vol] 79 Int._Unit/L Normal 21-98 [facility] Comment on above: Performed By: #### 2 [id number] #### [facility] [address] [place] [address] ALT No additional P-5'-P [Catalytic activity/Vol] 26 Int._Unit/L Normal 6-46 [facility] Comment on above: Performed By: #### 2 455443 #### [facility] [address] [place] [address] Anion gap [Moles/Vol] 10 mmol/L Normal 6-16 [facility] Comment on above: Performed By: #### 2 [id number] #### [facility] [address] [place] [address] AST [Catalytic activity/Vol] 23 Int._Unit/L Normal 5-43 [facility] Comment on above: Performed By: #### 2 728956 #### [facility] [address] [place] [address] Bilirubin [Mass/Vol] 0.4 mg/dL Normal 0.0-1.1 [facility] Comment on above: Performed By: #### 2 101709 #### [facility] [address] [place] [address] Calcium [Mass/Vol] 8.8 mg/dL Low 8.9-11.1 [facility] Comment on above: Performed By: #### 2 617040 #### [facility] [address] [place] [address] Chloride [Moles/Vol] 107 mmol/L Normal 101-111 [facility] Comment on above: Performed By: #### 2 178582 #### [facility] [address] [place] [address] CO2 [Moles/Vol] 27 mmol/L Normal 21-31 [facility] Comment on above: Performed By: #### 2 662645 #### [facility] [address] [place] [address] Creatinine [Mass/Vol] 1.0 mg/dL Normal 0.5-1.3 [facility] Comment on above: Performed By: #### 2 171211 #### [facility] [address] [place] [address] Globulin (S) [Mass/Vol] 3.0 g/dL Normal 1.4-4.0 [facility] Comment on above: Performed By: #### 2 401926 #### [facility] [address] [place] [address] Glucose [Mass/Vol] 170 mg/dL Normal 55-199 [facility] Comment on above: Performed By: #### 2 [id number] #### [facility] [address] [place] [address] Potassium [Moles/Vol] 4.2 mmol/L Normal 3.5-5.3 [facility] Comment on above: Performed By: #### 2 747150 #### [facility] [address] [place] [address] Protein [Mass/Vol] 7.1 g/dL Normal 6.0-7.8 [facility] Comment on above: Performed By: #### 2 126032 #### [facility] [address] [place] [address] Sodium [Moles/Vol] 140 mmol/L Normal 135-145 [facility] Comment on above: Performed By: #### 2 078056 #### [facility] [address] [place] [address] Urea nitrogen [Mass/Vol] 19 mg/dL Normal 5-21 [facility] Comment on above: Performed By: #### 2 [id number] #### [facility] [address] [place] [address] Urea nitrogen/Creatinine [Mass ratio] 19 No Units Normal 10-20 [facility] Comment on above: Performed By: #### 2 963801 #### [facility] [address] [place] [address] Family Medicine Office/Clini c Noteon 08-31-2023 Family [...] would like to atkins to [place] Needs to know when last testing was [...] Patient (more content not included)... Normal [facility] Comment on above: Result Comment: Elec tronically [...] Normal 4.0 - 11.0 E9/L Remisol Heme [id number] 08-31-2023 HbA1c (Bld) [Mass fraction] 6.8 % High <=5.9 [facility] Comment on above: Performed By: #### 7 [id number] #### [facility] [address] [place] [address] Lipid Panelon 08-31-2023 Cholesterol [Mass/Vol] 156 mg/dL Normal 120-200 [facility] Comment on above: Performed By: #### 2 826247 #### [facility] [address] [place] [address] Cholesterol in HDL [Mass/Vol] 60 mg/dL Invalid Interpretation Code [facility] Comment on above: Result Comment: '>= 60 LOW RISK' '<= 40 HIGH RISK' Performed By: #### 2 699263 #### [facility] [address] [place] [address] Cholesterol in LDL [Mass/Vol] 78 mg/dL Normal <=129 [facility] Comment on above: Performed By: #### 2 821742 #### [facility] [address] [place] [address] Cholesterol in VLDL [Mass/Vol] 22 mg/dL Normal 7-40 [facility] Comment on above: Performed By: #### 2 561468 #### [facility] [address] [place] [address] Triglyceride [Mass/Vol] 108 mg/dL Normal <=149 [facility] [facility] Comment on above: Performed By: #### 2 [id number] #### [facility] [address] [place] [address] Patient Educationon 08-31-19 24 Patient Education Nutrition [...] numbers. This can be done either in American (U.S.) or metric measurements. Note that charts and online BMI calculators are available to help you find your BMI quickly and easily without having to do these calculations yourself. To calculate your BMI in American (U.S.) measurements: 1. Measure your weight in [...] for Disease Control and Prevention: www.cdc.gov ? [place] Heart Association: www.heart.org ? National Heart, Lung, and Blood Tatamy: www.nhlbi.nih.gov Summary ? Body mass index (BMI) is a number that is calculated from a person's weight and height. ? BMI may help estimate how much of a person's weight is composed of fat. BMI can help identify those who may be at higher risk for certain medical problems. ? BMI can be measured using American measurements or metric measurements. ? BMI charts are used to identify whether you are underweight, normal weight, overweight, or obese. This information is not intended to replace advice given to you by your health care provider. Make sure you discuss any questions you have with your health care provider. Document Revised: 12/13/2019 Document Reviewed: 10/20/2019 [employer] Patient Education ? 2022 [employer] Normal [facility] eGFRon 08-31-2023 eGFR 60 mL/min/1.73 m2 Normal >=59 [facility] Comment on above: Order Comment: Order added by Discern Expert. 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\.br\ Carotid occlusion, left\.br\ Chronic kidney disease [...] choosing us for your care.\.br\ \.br\ [facility] Family Medicine Office/Clini c Noteon [...] qPM, # 30 tab(s), Refills(s) 0, Pharmacy: [facility]/pharmacy #[id number], 160, cm, 07/09/23 10:50:00 EDT, Height/Length [...] day(s), # 21 cap(s), Refills(s) 0, Pharmacy: [facility]/pharmacy #[id number], 160, cm, 07/09/23 10:50:00 EDT, Height/Length Dosing, 87.6, kg, 07/09/23 10:50:00 EDT, Weight Dosing montelukast, 10 mg = 1 tab(s), Oral, qPM, # 30 tab(s), Refills(s) 0, Pharmacy: [facility]/pharmacy #[id number], 160, cm, 07/09/23 10:50:00 EDT, Height/Length [...] qualifying data available Patient Education Allergies, Adult, Tvte-rr-Zvun Problem List/Past Medical History Ongoing Anemia 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 Normal [facility] Comment on above: Result Comment: Elec tronically [...] at home: Medicines ? Take or apply txme-wab-ndvxepp and prescription medicines only as told by [...] the hospital. Summary ? Take or apply gseu-vgf-pclkggl and prescription medicines only as told by [...] provider. Document Revised: 01/31/2020 Document Reviewed: 01/31/2020 [employer] Patient Education ? 2022 [employer]. [facility] Consultation Noteon 06-29-19 Consultation Note [id number] #1.00TIFF Normal [facility] Discharge Note - PTon 2023 Discharge Note - PT [id number] #1.00TIFF Normal [facility] PT - Progress Noteson 2023 PT - Progress Notes [id number] #1.00TIFF Normal [facility] Consultation Noteon 05-17-19 Consultation Note [id number] #1.00TIFF Normal [facility] XR Shoulder - right 2 [...] saved to the permanent record in the [place] office. [facility] XR Shoulder - right 2 Viewso n 05-12-2023 Radiology Study observation (narrative) [facility] Consent for Treatmenton Consent for Treatment [id number] #1.00TIFF Normal [facility] US Renalon 05-11-2023 US Renal [...] V. Transcribed by: TIAN Technologist: Normal [facility] Physician Orderon 05-05-2023 Physician Order [id number] #1.00TIFF Normal [facility] Consultation Noteon 04-28-19 Consultation Note [id number] #1.00TIFF [facility] Calcium [Mass/volume] in Ser um or PlasmaOrdered By: Fransisco Benavides on 03-16-2023 Calcium [Mass/Vol] 9.2 mg/dL 8.6-10.3 [facility] Creatinine [Mass/volume] in Serum or PlasmaOrdered By: Fransisco Benavides on 03-16-2023 Creatinine [Mass/Vol] 1.04 mg/dL 0.60-1.20 [facility] Magnesium [Mass/volume] in S melivn or PlasmaOrdered By: Fransisco Benavides on 03-16-2023 Magnesium [Mass/Vol] 1.5 mg/dL 1.9-2.7 [facility] No Panel InformationOrdered By: Fransisco Benavides on 03-16-2023 Estimated GFR (CKD-EPI) 58.180 mL/Min [facility] Creatinine Clearance (Chem N/A [facility] Phosphate [Mass/volume] in S melvin or PlasmaOrdered By: Fransisco Benavides on 03-16-2023 Phosphate [Mass/Vol] 3.6 mg/dL 2.5-4.5 [facility] Urea nitrogen [Mass/volume] in Serum or PlasmaOrdered By: Fransisco Benavides on 03-16-2023 Urea nitrogen [Mass/Vol] 25 mg/dL 7-25 [facility] PROTEIN ELECTROPHERESISon Albumin [Mass/Vol] 3.8 g/dL Normal 2.9-4.4 [place] Comment on above: Performed By: #### P RTELEC #### [facility] [address] [place] [address] Dr. Jennifer Atkins Albumin/Globulin [Mass ratio] 1.2 {ratio} Normal 0.7-1.7 [place] Comment on above: Performed By: #### P RTELEC #### [facility] [address] [place] [address] Dr. Jennifer Atkins Jlcdb-4-Pdqikuwm 0.2 g/dL Normal 0.0-0.4 [place] Comment on above: Performed By: #### P RTELEC #### [facility] [address] [place] [address] Dr. Jennifer Atkins Swwby-4-Zdsafxmj 0.8 g/dL Normal 0.4-1.0 [place] Comment on above: Performed By: #### P RTELEC #### [facility] [address] [place] [address] Dr. Jennifer Atkins Beta Globulin 1.1 g/dL Normal 0.7-1.3 [facility] Comment on above: Performed By: #### P RTELEC #### [facility] [address] [place] [address] Dr. Jennifer Atkins Gamma Globulin 0.9 g/dL Normal 0.4-1.8 [place] Comment on above: Performed By: #### P RTELEC #### [facility] [address] [place] [address] Dr. Jennifer Atkins Globulin (S) [Mass/Vol] 3.1 g/dL Normal 2.2-3.9 [facility] Comment on above: Performed By: #### P RTELEC #### [facility] [address] [place] [address] Dr. Jennifer Atkins M-Jimbo Not Observed Normal Not Observed [place] Comment on above: Performed By: #### P RTELEC #### [facility] [address] [place] [address] Dr. Jennifer Atkins PDF . Normal [facility] Comment on above: Performed By: #### P RTELEC #### [facility] [address] [place] [address] Dr. Jennifer Atkins Please note: Comment Normal [facility] Comment on above: Result Comment: Prot ein electrophoresis scan will follow via computer, mail, or angle shear set up operator delivery. Performed By: #### P RTELEC #### [facility] [address] [place] [address] Dr. Jennifer Atkins Protein [Mass/Vol] 6.9 g/dL Normal 6.0-8.5 [place] Comment on above: Performed By: #### P RTELEC #### [facility] [address] [place] [address] Dr. Jennifer Atkins TSHon 05-21-2022 TSH 1.479 uIU/mL Normal 0.358-3.740 [place] Comment on above: Performed By: #### T SH #### [facility] [address] [place] [address] Dr. Jennifer Atkins VIT B12 AND FOLATEon 023 Cobalamin (Vitamin B12) [Mass/Vol] 738.0 pg/mL Normal 193.0-986.0 [place] Comment on above: Performed By: #### B 12FOL #### [facility] [address] [place] [address] Dr. Jennifer Atkins FOLATE 25.70 ng/mL Normal 8.60-58.90 [place] Comment on above: Performed By: #### B 12FOL #### [facility] [address] [place] [address] Dr. Jennifer Atkins ENHANCED LIVER FIBROSIS TEST on 01-28-2022 ELF (TM) Score 10.76 Critically high <9.80 [place] Comment on above: Result Comment: ELF( TM) [...] Oct;73(1):26-39. Performed By: #### E LF #### [facility] [address] [address] [address] Jennifer Atkins Established Visit (Gastroent erology)on 12-23-2021 Established Visit (Gastroenterology) Diagnoses/Problems Assessed NAFLD (nonalcoholic fatty liver disease) (571.8) (K76.0) Orders NAFLD (nonalcoholic fatty liver disease) MISCELLANEOUS TEST; Status:Active; Requested for:23Dec2021; Perform:Lab Services - Lab To Draw (Non-Blood Test); Order Comments:ENHANCED LIVER FIBROSIS (ELF) TEST: [id number] CPT: 0014M LABCORPSERUM 2.5 ML, MINIMUM 1 ML. GEL-BARRIER TUBE OR RED-TOP TUBEREFRIGERATE; Due:[id number];Ordere d; For:NAFLD (nonalcoholic fatty liver disease); Ordered By:Kenroy Low; Patient Discussion/Summary If you have any questions, do not hesitate to call the Hepatology Nurse Coordinator at [phone]. PLEASE CALL IN 2022 FOR ORDERS. [X ] LABS: ELF TEST. HAVE RESULTS FAXED TO OUR OFFICE, [X ] FIBROSCAN ONCE A YEAR (Specialized test that measures scarring and fat in the liver) - Call to schedule: [facility] and [place]: [phone]. - [place]: [phone] [X ] FOLLOW UP: IN 1 YEAR -Call to schedule [phone], Option 1 Provider Impressions we will check [...] DIRECTED. Lantus SoloStar 100 UNIT/ML Subcutaneous Solution Pen-urngoyon57 units BID Metoprolol Tartrate 25 MG Oral TabletTAKE 1 TABLET TWICE DAILY. Multivitamins TABSTAKE 1 TABLET DAILY. Plaquenil 200 MG Oral TabletTAKE 1 TABLET TWICE DAILY WITH FOOD. Pro (more content not included)... Normal [facility] ALBUMIN, URINE SPOTon 2021 ALBUMIN,URINE <7.0 Normal Not Established [facility] Comment on above: Performed By: #### A LBSP #### [address] [id number] ALBUMIN/CREAT RATIO SEE COMMENT Normal 0.0 - 30.0 [facility] Comment on above: Result Comment: One or more analytes used in this calculation is outside of the analytical measurement range. Calculation cannot be performed. Performed By: #### A LBSP #### [address] [id number] CREATININE,URINE 20.2 mg/dL Normal 20.0 - 320.0 [facility] Comment on above: Performed By: #### A LBSP #### [address] [id number] C PEPTIDEon 12-02-2021 C PEPTIDE 0.8 ng/mL Normal 0.7 - 3.9 [facility] Comment on above: Performed By: #### C PEPT #### [facility] [address] [place] [address] C Reactive Protein, Serumon 12-02-2021 CRP [Mass/Vol] mg/L [facility] [facility] Work Phone: Comment on above: REF VALUE< 1.00 C-REACTIVE PROTEINon 022 CRP [Mass/Vol] mg/L Normal [facility] Comment on above: Result Comment: REF VALUE < 1.00 Performed By: #### C RP #### [address] [id number] CBC AND DIFFERENTIALon 12-02 % AUTOMATED IMMATURE GRAN 0.2 % Normal 0.0 - 0.9 [facility] Comment on above: Result Comment: Melyssa ture Granulocyte Count (IG) includes promyelocytes, myelocytes and metamyelocytes but does not include bands. Percent differential counts (%) should be interpreted in the context of the absolute cell counts (cells/L). Performed By: #### C BCDF #### [address] [id number] Basophils (Bld) [#/Vol] 0.04 10*3/uL Normal 0.00 - 0.10 [facility] Comment on above: Performed By: #### C BCDF #### [address] [id number] Basophils/100 WBC (Bld) 0.6 % Normal 0.0 - 2.0 [facility] Comment on above: Performed By: #### C BCDF #### [address] [id number] Eosinophils (Bld) [#/Vol] 0.22 10*3/uL Normal 0.00 - 0.70 [facility] Comment on above: Performed By: #### C BCDF #### [address] [id number] Eosinophils/100 WBC (Bld) 3.5 % Normal 0.0 - 6.0 [facility] Comment on above: Performed By: #### C BCDF #### [address] [id number] Erythrocyte distribution width (RBC) [Ratio] 13.9 % Normal 11.5 - 14.5 [facility] Comment on above: Performed By: #### C BCDF #### [address] [id number] Hematocrit (Bld) [Volume fraction] 36.9 % Normal 36.0 - 46.0 [facility] Comment on above: Performed By: #### C BCDF #### [address] [id number] Hemoglobin (Bld) [Mass/Vol] 11.6 g/dL Low 12.0 - 16.0 [facility] Comment on above: Performed By: #### C BCDF #### [address] [id number] Lymphocytes (Bld) [#/Vol] 2.67 10*3/uL Normal 1.20 - 4.80 [facility] Comment on above: Performed By: #### C BCDF #### [address] [id number] Lymphocytes/100 WBC (Bld) 42.4 % Normal 13.0 - 44.0 [facility] Comment on above: Performed By: #### C BCDF #### [address] [id number] MCHC (RBC) [Mass/Vol] 31.4 g/dL Low 32.0 - 36.0 [facility] Comment on above: Performed By: #### C BCDF #### [address] [id number] MCV (RBC) [Entitic vol] 93 fL Normal 80 - 100 [facility] Comment on above: Performed By: #### C BCDF #### [address] [id number] Monocytes (Bld) [#/Vol] 0.70 10*3/uL Normal 0.10 - 1.00 [facility] Comment on above: Performed By: #### C BCDF #### [address] [id number] Monocytes/100 WBC (Bld) 11.1 % Normal 2.0 - 10.0 [facility] Comment on above: Performed By: #### C BCDF #### [address] [id number] Neutrophils (Bld) [#/Vol] 2.65 10*3/uL Normal 1.20 - 7.70 [facility] Comment on above: Performed By: #### C BCDF #### [address] [id number] Neutrophils/100 WBC (Bld) 42.2 % Normal 40.0 - 80.0 [facility] Comment on above: Performed By: #### C BCDF #### [address] [id number] Platelets (Bld) [#/Vol] 253 10*3/uL Normal 150 - 450 [facility] Comment on above: Performed By: #### C BCDF #### [address] [id number] RBC 3.96 x10E12/L Low 4.00 - 5.20 [facility] Comment on above: Performed By: #### C BCDF #### [address] [id number] WBC (Bld) [#/Vol] 6.3 10*3/uL Normal 4.4 - 11.3 [facility] Comment on above: Performed By: #### C BCDF #### [facility] [address] [place], [place] [id number] Complete Blood Count + Diffe terra 12-02-2021 Basophils/100 WBC (Bld) 0.6 % 0.0 - 2.0 [facility] [facility] Work Phone: Erythrocyte distribution width (RBC) [Ratio] 13.9 % See Below [facility] [facility] Work Phone: Comment on above: Reference Range: 11. 5 - 14.5 Hematocrit (Bld) [Volume fraction] 36.9 % See Below [facility] [facility] Work Phone: Comment on above: Reference Range: 36. 0 - 46.0 Hemoglobin (Bld) [Mass/Vol] 11.6 g/dL below low threshold See Below [facility] [facility] Work Phone: Comment on above: Reference Range: 12. 0 - 16.0 Lymphocytes/100 WBC (Bld) 42.4 % See Below [facility] [facility] Work Phone: Comment on above: Reference Range: 13. 0 - 44.0 MCHC (RBC) [Mass/Vol] 31.4 g/dL below low threshold See Below [facility] [facility] Work Phone: Comment on above: Reference Range: 32. 0 - 36.0 MCV (RBC) [Entitic vol] 93 fL 80 - 100 [facility] [facility] Work Phone: Monocytes/100 WBC (Bld) 11.1 % 2.0 - 10.0 [facility] [facility] Work Phone: Neutrophils/100 WBC (Bld) 42.2 % See Below [facility] [facility] Work Phone: Comment on above: Reference Range: 40. 0 - 80.0 Platelets (Bld) [#/Vol] 253 10*3/uL 150 - 450 [facility] [facility] Work Phone: RBC (Bld) [#/Vol] 3.96 {x10E12/L} below low threshold See Below [facility] [facility] Work Phone: Comment on above: Reference Range: 4.0 0 - 5.20 WBC (Bld) [#/Vol] 6.3 10*3/uL 4.4 - 11.3 [facility] [facility] Work Phone: Complete Blood Count + Differential 0.04 {x10E9/L} See Below [facility] [facility] Work Phone: Comment on above: Reference Range: 0.0 0 - 0.10 Complete Blood Count + Differential 0.22 {x10E9/L} See Below [facility] [facility] Work Phone: Comment on above: Reference Range: 0.0 0 - 0.70 Complete Blood Count + Differential 0.70 {x10E9/L} See Below [facility] [facility] Work Phone: Comment on above: Reference Range: 0.1 0 - 1.00 Complete Blood Count + Differential 2.67 {x10E9/L} See Below [facility] [facility] Work Phone: Comment on above: Reference Range: 1.2 0 - 4.80 Complete Blood Count + Differential 2.65 {x10E9/L} See Below [facility] [facility] Work Phone: Comment on above: Reference Range: 1.2 0 - 7.70 Complete Blood Count + Differential 3.5 % 0.0 - 6.0 [facility] [facility] Work Phone: Complete Blood Count + Differential 0.2 % 0.0 - 0.9 [facility] [facility] Work Phone: Comment on above: Immature Granulocyte Count (IG) includes promyelocytes, myelocytes and metamyelocytes but does not include bands. Percent differential counts (%) should be interpreted in the context of the absolute cell counts (cells/L). HEPATIC FUNCTION PANELon ALP [Catalytic activity/Vol] 63 U/L Normal 33 - 136 [facility] Comment on above: Performed By: #### H EPFP #### [address] [id number] ALT [Catalytic activity/Vol] 30 U/L Normal 7 - 45 [facility] Comment on above: Result Comment: Shannon ents treated with Sulfasalazine may generate falsely decreased results for ALT. Performed By: #### H EPFP #### [address] [id number] AST [Catalytic activity/Vol] 31 U/L Normal 9 - 39 [facility] Comment on above: Performed By: #### H EPFP #### [address] [id number] Bilirubin [Mass/Vol] 0.4 mg/dL Normal 0.0 - 1.2 [facility] Comment on above: Performed By: #### H EPFP #### [address] [id number] Bilirubin.indirect [Mass/Vol] 0.1 mg/dL Normal 0.0 - 0.3 [facility] Comment on above: Performed By: #### H EPFP #### [address] [id number] Protein [Mass/Vol] 7.5 g/dL Normal 6.4 - 8.2 [facility] Comment on above: Performed By: #### H EPFP #### [address] [id number] Hepatic Function Panelon Albumin BCP dye [Mass/Vol] 4.5 g/dL 3.4 - 5.0 [facility] [facility] Work Phone: ALP [Catalytic activity/Vol] 63 U/L 33 - 136 [facility] [facility] Work Phone: ALT With P-5'-P [Catalytic activity/Vol] 30 U/L 7 - 45 [facility] [facility] Work Phone: Comment on above: Patients treated wit h Sulfasalazine may generate falsely decreased results for ALT. AST With P-5'-P [Catalytic activity/Vol] 31 U/L 9 - 39 [facility] [facility] Work Phone: Bilirubin [Mass/Vol] 0.4 mg/dL 0.0 - 1.2 [facility] [facility] Work Phone: Bilirubin.direct [Mass/Vol] 0.1 mg/dL 0.0 - 0.3 [facility] [facility] Work Phone: Protein [Mass/Vol] 7.5 g/dL 6.4 - 8.2 [facility] [facility] Work Phone: LIPID PANEL (CORONARY RISK 2 )on 12-02-2021 Cholesterol [Mass/Vol] 171 mg/dL Normal 0 - 199 [facility] Comment on above: Result Comment: . [...] dosing. Performed By: #### L IPID #### [address] [id number] Cholesterol in HDL [Mass/Vol] 73.0 mg/dL Normal [facility] Comment on above: Result Comment: . AGE VERY LOW LOW NORMAL HIGH 0-19 Y < 35 < 40 40-45 ---- 20-24 Y ---- < 40 >45 ---- >24 Y ---- < 40 40-60 >60 . Performed By: #### L IPID #### [address] [id number] Cholesterol in LDL [Mass/Vol] 78 mg/dL Normal 0 - 99 [facility] Comment on above: Result Comment: . NEAR BORD AGE DESIRABLE OPTIMAL HIGH HIGH VERY HIGH 0-19 Y 0 - 109 --- 110-129 >/= 130 ---- 20-24 Y 0 - 119 --- 120-159 >/= 160 ---- >24 Y 0 - 99 100-129 130-159 160-189 >/=190 . Performed By: #### L IPID #### [address] [id number] Cholesterol in VLDL [Mass/Vol] 20 mg/dL Normal 0 - 40 [facility] Comment on above: Performed By: #### L IPID #### [address] [id number] Cholesterol.total/Ch olesterol in HDL [Mass ratio] 2.3 {ratio} Normal [facility] Comment on above: Result Comment: REF VALUES DESIRABLE < 3.4 HIGH RISK > 5.0 Performed By: #### L IPID #### [address] [id number] Triglyceride [Mass/Vol] 101 mg/dL Normal 0 - 149 [facility] Comment on above: Result Comment: . [...] dosing. Performed By: #### L IPID #### [address] [id number] Laboratory - Chemistry and C hemistry - challengeon 12-02-2021 Albumin Ql (U) <7.0 See Below [facility] [facility] Work Phone: Comment on above: Reference Range: Not Established Albumin/Creatinine DL <= 20 mg/L (U) [Mass ratio] SEE COMMENT 0.0 - 30.0 [facility] [facility] Work Phone: Comment on above: One or more analytes used in this calculation is outside of the analytical measurement range.Calculation cannot be performed. Creatinine (U) [Mass/Vol] 20.2 mg/dL See Below [facility] [facility] Work Phone: Comment on above: Reference Range: 20. 0 - 320.0 Lipid Panelon 12-02-2021 Cholesterol [Mass/Vol] 171 mg/dL 0 - 199 [facility] [facility] Work Phone: Comment on above: . [...] Cholesterol in HDL [Mass/Vol] 73.0 mg/dL [facility] [facility] Work Phone: Comment on above: . AGE VERY LOW LOW N ORMAL HIGH 0-19 Y < 35 < 40 40-45 ---- 20- 24 Y ---- < 40 >45 ---- >24 Y ---- < 40 40-60 >60. Cholesterol in LDL [Mass/Vol] 78 mg/dL 0 - 99 [facility] [facility] Work Phone: Comment on above: . NEAR BORD AGE HEBERT RABLE OPTIMAL HIGH HIGH VERY HIGH 0-19 Y 0 - 109 --- 110-129 >/= 130 ---- 20-24 Y 0 - 119 --- 120-159 >/= 160 ---- >24 Y 0 - 99 100-129 130-159 160-189 >/=190. Cholesterol.total/Ch olesterol in HDL [Mass ratio] 2.3 {ratio} [facility] [facility] Work Phone: Comment on above: REF VALUESDESIRABLE < 3.4HIGH RISK > 5.0 Triglyceride [Mass/Vol] 101 mg/dL 0 - 149 [facility] [facility] Work Phone: Comment on above: . [...] Panel 20 mg/dL 0 - 40 [facility] [facility] Work Phone: Procedure (Gastroenterology) on 12-02-2021 [...] DIRECTED. Lantus SoloStar 100 UNIT/ML Subcutaneous Solution Pen-[id number] units BID Metoprolol Tartrate 25 MG Oral [...] Dec 02 2021 10:21AM EST (Author) Normal [employer] RENAL FUNCTION PANELon 12-02 Albumin [Mass/Vol] 4.5 g/dL Normal 3.4 - 5.0 [facility] Comment on above: Performed By: #### R ENAL #### [address] [id number] Performed By: #### H EPFP #### [address] [id number] Anion gap [Moles/Vol] 13 mmol/L Normal 10 - 20 [facility] Comment on above: Performed By: #### R ENAL #### [address] [id number] Calcium [Mass/Vol] 9.3 mg/dL Normal 8.6 - 10.3 [facility] Comment on above: Performed By: #### R ENAL #### [address] [id number] Chloride [Moles/Vol] 103 mmol/L Normal 98 - 107 [facility] Comment on above: Performed By: #### R ENAL #### [address] [id number] Creatinine [Mass/Vol] 1.19 mg/dL High 0.50 - 1.05 [facility] Comment on above: Performed By: #### R ENAL #### [address] [id number] GFR/1.73 sq M.predicted among non-blacks MDRD (S/P/Bld) [Vol rate/Area] 50 mL/min/{1.73_m2} Abnormal >90 [facility] Comment on above: Result Comment: CALC ULATIONS OF ESTIMATED GFR ARE PERFORMED USING THE 2020 CKD-EPI STUDY REFIT EQUATION WITHOUT THE RACE VARIABLE FOR THE IDMS-TRACEABLE CREATININE METHODS. https://jasn.asnjournals.org/content//ASN.[email or web address] 988 Performed By: #### R ENAL #### [address] [id number] Glucose [Mass/Vol] 64 mg/dL Low 74 - 99 [facility] Comment on above: Performed By: #### R ENAL #### [address] [id number] HCO3 (Bld) [Moles/Vol] 29 mmol/L Normal 21 - 32 [facility] Comment on above: Performed By: #### R ENAL #### [address] [id number] Phosphate [Mass/Vol] 3.4 mg/dL Normal 2.5 - 4.9 [facility] Comment on above: Result Comment: The performance characteristics of phosphorus testing in heparinized plasma have been validated by the individual laboratory site where testing is performed. Testing on heparinized plasma is not approved by the FDA; however, such approval is not necessary. Performed By: #### R ENAL #### [facility] [address] [place], [place] [phone] Potassium [Moles/Vol] 4.7 mmol/L Normal 3.5 - 5.3 [facility] Comment on above: Performed By: #### R ENAL #### [facility] [address] [place], [place] [id number] Sodium [Moles/Vol] 140 mmol/L Normal 136 - 145 [facility] Comment on above: Performed By: #### R ENAL #### [facility] [address] [place], [place] [id number] Urea nitrogen [Mass/Vol] 31 mg/dL High 6 - 23 [facility] Comment on above: Performed By: #### R ENAL #### [facility] [address] [place], [place] [phone] Renal Function Panelon 12-02 Anion gap [Moles/Vol] 13 mmol/L 10 - 20 [facility] Work Phone: Calcium [Mass/Vol] 9.3 mg/dL 8.6 - 10.3 [facility] [facility] Work Phone: Chloride [Moles/Vol] 103 mmol/L 98 - 107 [facility] [facility] Work Phone: CO2 [Moles/Vol] 29 mmol/L 21 - 32 [facility] Work Phone: Creatinine [Mass/Vol] 1.19 mg/dL above high threshold See Below [facility] Work Phone: Comment on above: Reference Range: 0.5 0 - 1.05 Glucose [Mass/Vol] 64 mg/dL below low threshold 74 - 99 [facility] Work Phone: Phosphate [Mass/Vol] 3.4 mg/dL 2.5 - 4.9 [facility] Work Phone: Comment on above: The performance juliana acteristics of phosphorus testing in heparinized plasma have been validated by the individual laboratory site where testing is performed. Testing on heparinized plasma is not approved by the FDA; however, such approval is not necessary. Potassium [Moles/Vol] 4.7 mmol/L 3.5 - 5.3 [facility] Work Phone: Sodium [Moles/Vol] 140 mmol/L 136 - 145 [facility] Work Phone: Urea nitrogen [Mass/Vol] 31 mg/dL above high threshold 6 - 23 [facility] Work Phone: Renal Function Panel 50 {mL/min/1.73m2} Abnormal >90 [facility] Work Phone: Comment on above: CALCULATIONS OF KELI MATED GFR ARE PERFORMED USING THE 2020 CKD-EPI STUDY REFIT EQUATION WITHOUT THE RACE VARIABLE FOR THE IDMS-TRACEABLE CREATININE METHODS.https://jasn.asnjournals.org/content//ASN .[id number] SEDIMENTATION RATE, ERYTHROC YTEon 12-02-2021 SEDIMENTATION RATE, ERYTHROCYTE 31 mm/h High 0 - 30 [facility] Comment on above: Result Comment: Clemencia cramer note new reference ranges as of 08/11/2021. Ran on alternate instrument Reference Ranges: Males: 0-15 Females: 0-20 Children under 18: 0-10 Performed By: #### E SRWS #### [address] [id number] Sedimentation Rate, Erythroc yteon 12-02-2021 ESR (Bld) [Velocity] 31 mm/h above high threshold 0 - 30 [facility] Work Phone: Comment on above: Please note new refe rence ranges as of 08/11/2021.Ran on alternate instrumentReference Ranges: Males: 0-15 Females: 0-20 Children under 18: 0-10 VITAMIN D, 25-HYDROXYon 08- VITAMIN D, 25-HYDROXY 55 ng/mL Normal [facility] Comment on above: Result Comment: . DEFICIENCY: < 20 NG/ML INSUFFICIENCY: 20-29 NG/ML SUFFICIENCY: 30-100 NG/ML THIS ASSAY ACCURATELY QUANTIFIES THE SUM OF VITAMIN D3, 25-HYDROXY AND VIT D2,25-HYDROXY. Performed By: #### V TDOH #### [address] [id number] Vitamin D 25-Hydroxyon 12-02 25-hydroxyvitamin D3 [Mass/Vol] 55 ng/mL [facility] Work Phone: Comment on above: .DEFICIENCY: [...] 12-12-2020 HIPS BILATERAL 2 VWS WITH PELVIS [facility] Department of Radiology [address] [place] [id number] Patient Name: LJ DOLL : 1955 Sex: F Age: Race: White Pt. Location: Patient Status: D Ordered Date: 12/12/2020 8:30:00 AM Completed Date: 12/12/2020 08:38 AM Requesting Provider: CHAGO WARREN Attending Provider: CHAGO WARREN Report Copy To: BREE AMBROSE Signs & Symptoms: Z96.642 Presence of left artificial hip joint History: [place] failed; scanned in RIS Comments: evaluate Exam: [...] report. Electronically signed: James Francisco. Transcribed by: [email or web address], User Resident: ZOLTAN CASTRO Electronically Signed by: AJMES FRANCISCO @ 12/13/2020 10:51 AM I personally read this/these film(s) with this resident Normal [facility] Comment on above: Order Comment: evalu ate HAND LEFT 3 VWSon 04-26-2020 HAND LEFT 3 VWS [facility] Department of Radiology [address] [place] [id number] Patient Name: LJ DOLL : 1955 [...] arthritis. Electronically signed: James Francisco. Transcribed by: [email or web address], User Resident: Electronically Signed by: JAMES FRANCISCO @ 04/27/2020 01:21 PM Normal [facility] Comment on above: Order Comment: Evalu ate WRIST LEFT 3 VWSon 1 WRIST LEFT 3 VWS [facility] Department of Radiology [address] [place] [id number] Patient Name: LJ DOLL : 1955 [...] arthritis. Electronically signed: James Francisco. Transcribed by: [email or web address], User Resident: Electronically Signed by: JAMES FRANCISCO @ 04/27/2020 01:21 PM Normal [facility] Comment on above: Order Comment: Evalu ate ABO/RH GROUP TESTon 10-23-19 ABO TYPE O Normal [facility] Comment on above: Performed By: #### V ERAB ####[address] [address] RH TYPE Positive Normal [facility] Comment on above: Performed By: #### V ERAB ####[address] [address] BASIC METABOLIC PANELon 10-04 Anion gap [Moles/Vol] 9 mmol/L Low - [facility] Comment on above: Performed By: #### B MP ####[address] [address] Calcium [Mass/Vol] 8.7 mg/dL Normal 8.6 - 10.3 [facility] Comment on above: Performed By: #### B MP ####[address] [address] Chloride [Moles/Vol] 110 mmol/L High 98 - 107 [facility] Comment on above: Performed By: #### B MP ####[address] [address] Creatinine [Mass/Vol] 0.94 mg/dL Normal 0.50 - 1.05 [facility] Comment on above: Performed By: #### B MP ####[address] [address] GFR- AM. 73 mL/min/1.73m2 Normal >60 [facility] Comment on above: Result Comment: CALC ULATIONS OF ESTIMATED GFR ARE PERFORMED USING THE MDRD STUDY EQUATION FOR THE IDMS-TRACEABLE CREATININE METHODS. CLIN CHEM 2007;53:766-72 Performed By: #### B MP ####[address] [address] GFR-NON AM. 60 mL/min/1.73m2 Abnormal >60 [facility] Comment on above: Performed By: #### B MP ####[address] [address] Glucose [Mass/Vol] 155 mg/dL High 74 - 99 [facility] Comment on above: Performed By: #### B MP ####[address] [address] HCO3 (Bld) [Moles/Vol] 24 mmol/L Normal 21 - 32 [facility] Comment on above: Performed By: #### B MP ####[address] [address] Potassium [Moles/Vol] 4.4 mmol/L Normal 3.5 - 5.3 [facility] Comment on above: Performed By: #### B MP ####[address] [address] Sodium [Moles/Vol] 139 mmol/L Normal 136 - 145 [facility] Comment on above: Performed By: #### B MP ####[address] [address] Urea nitrogen [Mass/Vol] 27 mg/dL High 6 - 23 [facility] Comment on above: Performed By: #### B MP ####[address] [address] CBCon 10-22-2018 Erythrocyte distribution width (RBC) [Ratio] 14.6 % High 11.5 - 14.5 [facility] Comment on above: Performed By: #### C BC ####[address] [address] Hematocrit (Bld) [Volume fraction] 24.8 % Low 36.0 - 46.0 [facility] Comment on above: Performed By: #### C BC ####[address] [address] Hemoglobin (Bld) [Mass/Vol] 7.4 g/dL Low 12.0 - 16.0 [facility] Comment on above: Performed By: #### C BC ####[address] [address] MCHC (RBC) [Mass/Vol] 29.8 g/dL Low 32.0 - 36.0 [facility] Comment on above: Performed By: #### C BC ####[address] [address] MCV (RBC) [Entitic vol] 92 fL Normal 80 - 100 [facility] Comment on above: Performed By: #### C BC ####[address] [address] Nucleated RBC/100 WBC (Bld) [Ratio] 0.0 /100 WBC Normal 0.0 - 0.0 [facility] Comment on above: Performed By: #### C BC ####[address] [address] Platelets (Bld) [#/Vol] 212 10*3/uL Normal 150 - 450 [facility] Comment on above: Performed By: #### C BC ####[address] [address] RBC (Bld) [#/Vol] 2.71 x10E12/L Low 4.00 - 5.20 [facility] Comment on above: Performed By: #### C BC ####[address] [address] WBC (Bld) [#/Vol] 7.2 10*3/uL Normal 4.4 - 11.3 [facility] Comment on above: Performed By: #### C BC ####[address] [address] Discharge [id number] 019 Discharge Profile2 Discharge Orders: Anticipated Discharge Date: Anticipated Discharge [id number] Problem List: Admitting Dx: Gastrointestinal hemorrhage with hematemesis: [facility] Providers: Provider RoleProvider Name Jeffrey Paige [...] normal per the patient. She presented to [facility] on September 20 for evaluation of [...] bleeding. Course: Patient was transferred to [facility] ICU and monitored. She didn't show any evidence of bleeding. No melena or hematochezia. Her vitals were stable so she was transferred out of ICU to [email or web address] GI saw her there and she underwent EGD on 10/22/18. No bleeding was found. Hiatal hernia was noted. Patient's aspirin, plavix and celebrex were held and stopped at discharged. Since her coronary stent was placed in 2016, she likely doesn't need to be on plavix anymore. Restarting ASA and/or plavix can be discussed with her senior patient account representative at her appointment scheduled in November. Her [...] in1 week Follow-Up Appointment 02: Physician/Dept/Janna Rizzo senior patient account representative Call to Schedule in4 weeks Electronic Signatures: Jeffrey Crowell) (Signed 22-Oct-2018 12:24) Authored: Discharge Orders, Hospital Course (Home Care/Gold Form), Provider FINAL REVIEW of Orders, Appointments, Gold Form - Pizza Cook Summary Last Updated: 22-Oct-2018 12:24 by Jeffrey Crowell) Normal [facility] GLUCOSE-POCTon 10-22-2018 Glucose [Mass/Vol] 146 mg/dL High 74 - 99 [facility] Comment on above: Performed By: #### G BENNIE ####[address] [address] Glucose [Mass/Vol] 160 mg/dL High 74 - 99 [facility] Comment on above: Performed By: #### G BENNIE ####[address] [address] REQUEST-LEUKOREDUCED RED JE LSon 10-22-2018 REQUEST-LEUKOREDUCED RED CELLS ORDER RECD Normal [facility] Comment on above: Performed By: #### O CHAINSTITCH TUNNEL ELASTIC OPERATOR ####[address] [address] BASIC METABOLIC PANELon 10-03 Anion gap [Moles/Vol] 14 mmol/L Normal - [facility] Comment on above: Performed By: #### B MP ####[address] [address] Calcium [Mass/Vol] 8.4 mg/dL Low 8.6 - 10.3 [facility] Comment on above: Performed By: #### B MP ####[address] [address] Chloride [Moles/Vol] 108 mmol/L High 98 - 107 [facility] Comment on above: Performed By: #### B MP ####[address] [address] Creatinine [Mass/Vol] 0.93 mg/dL Normal 0.50 - 1.05 [facility] Comment on above: Performed By: #### B MP ####[address] [address] GFR- AM. 73 mL/min/1.73m2 Normal >60 [facility] Comment on above: Result Comment: CALC ULATIONS OF ESTIMATED GFR ARE PERFORMED USING THE MDRD STUDY EQUATION FOR THE IDMS-TRACEABLE CREATININE METHODS. CLIN CHEM 2007;53:766-72 Performed By: #### B MP ####[address] [address] GFR-NON AM. 60 mL/min/1.73m2 Abnormal >60 [facility] Comment on above: Performed By: #### B MP ####[address] [address] Glucose [Mass/Vol] 118 mg/dL High 74 - 99 [facility] Comment on above: Performed By: #### B MP ####[address] [address] HCO3 (Bld) [Moles/Vol] 22 mmol/L Normal 21 - 32 [facility] Comment on above: Performed By: #### B MP ####[address] [address] Potassium [Moles/Vol] 4.2 mmol/L Normal 3.5 - 5.3 [facility] Comment on above: Performed By: #### B MP ####[address] [address] Sodium [Moles/Vol] 140 mmol/L Normal 136 - 145 [facility] Comment on above: Performed By: #### B MP ####[address] [address] Urea nitrogen [Mass/Vol] 36 mg/dL High 6 - 23 [facility] Comment on above: Performed By: #### B MP ####[address] [address] CBCon 10-21-2018 Erythrocyte distribution width (RBC) [Ratio] 14.6 % High 11.5 - 14.5 [facility] Comment on above: Performed By: #### C BC ####[address] [address] Hematocrit (Bld) [Volume fraction] 26.3 % Low 36.0 - 46.0 [facility] Comment on above: Performed By: #### C BC ####[address] [address] Hemoglobin (Bld) [Mass/Vol] 8.0 g/dL Low 12.0 - 16.0 [facility] Comment on above: Performed By: #### C BC ####[address] [address] MCHC (RBC) [Mass/Vol] 30.4 g/dL Low 32.0 - 36.0 [facility] Comment on above: Performed By: #### C BC ####[address] [address] MCV (RBC) [Entitic vol] 92 fL Normal 80 - 100 [facility] Comment on above: Performed By: #### C BC ####[address] [address] Nucleated RBC/100 WBC (Bld) [Ratio] 0.0 /100 WBC Normal 0.0 - 0.0 [facility] Comment on above: Performed By: #### C BC ####[address] [address] Platelets (Bld) [#/Vol] 244 10*3/uL Normal 150 - 450 [facility] Comment on above: Performed By: #### C BC ####[facility] [address] RBC (Bld) [#/Vol] 2.86 x10E12/L Low 4.00 - 5.20 [facility] Comment on above: Performed By: #### C BC ####[facility] [place] [address] WBC (Bld) [#/Vol] 8.6 10*3/uL Normal 4.4 - 11.3 [facility] Comment on above: Performed By: #### C BC ####[facility] [place] [address] Consult-Gastroenterologyon 0 10-21-2018 Consult-Gastroentero logy Service: Service: [...] Mood Alteration Objective: Objective Information: T PRBPSpO2 [id number]/539 8% Date/Time10/21 8: 11: 11:007/19 11: 8:00 [...] --EGD tomorrow AM Dr. 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 Objective Data: Objective Information T PRBPSpO2 [id number]/619 7% Date/Time10/21 3: 5: 5: 5: 5:00 [...] reviewed these laboratory results: Glucose_POCT Trending View [id number] 05:27:00 20-Oct-2018 23:24:00 20-Oct-2018 16:44:00 Glucose-CTCV931 H 114 H 120 H Complete Blood Count Trending View [id number] 04:11:00 20-Oct-2018 15:31:00 White Blood Cell Count8.6 7.7 Nucleated Erythrocyte Count0.0 0.0 Red Blood Cell Count2.86 L 2.76 L HGB8.0 L 7.7 L HCT26.3 L 25.7 L MCV92 93 MCHC30.4 L 30.0 L UBE688 241 RDW-CV14.6 H 14.6 H Basic Metabolic [...] [facility] who will accept the patient to [facility] [[email or web address] Code Status: Code StatusFull Code Signature/Cosignatur e/Attestation: [...] for greater detail. Electronic Signatures: Homero Enriquez (CONSTRUCTION TEACHER-CERTIFIED MASTER SAFE TECHNICIAN) (Signed 21-Oct-2018 12:03) Authored: Subjective Data, Objective Data, Assessment and Plan, Signature/Cosignatur e/Attestation Last Updated: 21-Oct-2018 12:03 by Homero Enriquez (CONSTRUCTION TEACHER-CERTIFIED MASTER SAFE TECHNICIAN) Normal [facility] GLUCOSE-POCTon 10-21-2018 Glucose [Mass/Vol] 180 mg/dL High 74 - 99 [facility] Comment on above: Performed By: #### G BENNIE ####[address] [address] Glucose [Mass/Vol] 166 mg/dL High 74 - 99 [facility] Comment on above: Performed By: #### G BENNIE ####[address] [address] Glucose [Mass/Vol] 174 mg/dL High 74 - 99 [facility] Comment on above: Performed By: #### G BENNIE ####[address] [address] Glucose [Mass/Vol] 129 mg/dL High 74 - 99 [facility] Comment on above: Performed By: #### G BENNIE ####[address] [address] Glucose [Mass/Vol] 114 mg/dL High 74 - 99 [facility] Comment on above: Performed By: #### G BENNIE ####[address] [address] HEMOGLOBIN A1Con 10-21-2018 HbA1c (Bld) [Mass fraction] 6.8 % Normal [facility] Comment on above: Result Comment: Diag nosis of Diabetes-Adults Non-Diabetic: < or = 5.6% Increased risk for developing diabetes: 5.7-6.4% Diagnostic of diabetes: > or = 6.5% . Monitoring of Diabetes Age (y) Therapeutic Goal (%) Adults: >18 <7.0 Pediatrics: 13-18 <7.5 7-12 <8.0 0- 6 7.5-8.5 [place] [employer]. Diabetes Care 33(S1), Apr 2009. Performed By: #### H BA1E ####[address] [address] HbA1c (Bld) [Mass fraction] 148 MG/DL Normal [facility] Comment on above: Performed By: #### H BA1E ####[address] [address] HGB + HCTon 10-21-2018 Hematocrit (Bld) [Volume fraction] 25.1 % Low 36.0 - 46.0 [facility] Comment on above: Performed By: #### H H ####[address] [address] Hemoglobin (Bld) [Mass/Vol] 7.9 g/dL Low 12.0 - 16.0 [facility] Comment on above: Performed By: #### H H ####[address] [address] MAGNESIUMon 10-21-2018 Magnesium [Mass/Vol] 1.80 mg/dL Normal 1.60 - 2.40 [facility] Comment on above: Performed By: #### M G ####[address] [address] PHOSPHORUSon 10-21-2018 Phosphate [Mass/Vol] 2.1 mg/dL Low 2.5 - 4.9 [facility] Comment on above: Result Comment: The performance characteristics of phosphorus testing in heparinized plasma have been validated by the individual laboratory site where testing is performed. Testing on heparinized plasma is not approved by the FDA; however, such approval is not necessary. Performed By: #### P HOS ####[facility] [place] [address] Preop Checkliston 10-21-2018 Preop Checklist Preop Checklist: Preop Checklist: Arrival [id number] Arrival Time07:30 Procedure Typeesophago - gastro-duodenoscopy NPO [id number] NPO Commentnpo at mid night ID Band [...] 21-Oct-2018 22:04 by Glory Wilde (TIFFANIE) Normal [facility] Admission Risk Screen - Adul ton 10-20-2018 [...] risk with low risk for associated injury [place] Safety InterventionsWDL *orient to call system *instruct [...] Communicatenone Learning Preferencesaudio Cultural Considerationsnone Developmental Considerationsnone Yazidi Considerationsnone Learning Assessment (Other Learner): Other learner [...] Spiritual Screen: Are there any cultural, spiritual, sikhism practices/values/nee ds that are important for us to knowno Do you want a visit/item from Pastoral Careno Would you like your Table Maker/Scalp Treatment Operator notifiedno CAGE: Is this an injured patient at a Trauma Center ([facility]/[place]): no Vaccinations: Vaccination - Influenza Vaccination Screen: [...] Last Updated: 20-Oct-2018 11:00 by Judy Monet (NEVAEH) Normal [facility] CBCon 10-20-2018 Erythrocyte distribution width (RBC) [Ratio] 14.6 % High 11.5 - 14.5 [facility] Comment on above: Performed By: #### C BC #### [address] [address] Hematocrit (Bld) [Volume fraction] 25.7 % Low 36.0 - 46.0 [facility] Comment on above: Performed By: #### C BC #### [address] [address] Hemoglobin (Bld) [Mass/Vol] 7.7 g/dL Low 12.0 - 16.0 [facility] Comment on above: Performed By: #### C BC #### [address] [place] [address] MCHC (RBC) [Mass/Vol] 30.0 g/dL Low 32.0 - 36.0 [facility] Comment on above: Performed By: #### C BC #### [address] [place] [address] MCV (RBC) [Entitic vol] 93 fL Normal 80 - 100 [facility] Comment on above: Performed By: #### C BC #### [address] [place] [address] Nucleated RBC/100 WBC (Bld) [Ratio] 0.0 /100 WBC Normal 0.0 - 0.0 [facility] Comment on above: Performed By: #### C BC #### [address] [place] [address] Platelets (Bld) [#/Vol] 241 10*3/uL Normal 150 - 450 [facility] Comment on above: Performed By: #### C BC #### [address] [place] [address] RBC (Bld) [#/Vol] 2.76 x10E12/L Low 4.00 - 5.20 [facility] Comment on above: Performed By: #### C BC #### [address] [place] [address] WBC (Bld) [#/Vol] 7.7 10*3/uL Normal 4.4 - 11.3 [facility] Comment on above: Performed By: #### C BC #### [address] [place] [address] COMPREHENSIVE PANELon 2018 Albumin [Mass/Vol] 3.6 g/dL Normal 3.4 - 5.0 [facility] Comment on above: Performed By: #### C MP ####[address] [place] [address] ALP [Catalytic activity/Vol] 91 U/L Normal 33 - 136 [facility] Comment on above: Performed By: #### C MP ####[address] [place] [address] ALT [Catalytic activity/Vol] 34 U/L Normal 7 - 45 [facility] Comment on above: Result Comment: Shannon ents treated with Sulfasalazine may generate falsely decreased results for ALT. Performed By: #### C MP ####[address] [place] [address] Anion gap [Moles/Vol] 11 mmol/L Normal 10 - 20 [facility] Comment on above: Performed By: #### C MP ####[address] [place] [address] AST [Catalytic activity/Vol] 22 U/L Normal 9 - 39 [facility] Comment on above: Performed By: #### C MP ####[address] [place] [address] Bilirubin [Mass/Vol] 0.2 mg/dL Normal 0.0 - 1.2 [facility] Comment on above: Performed By: #### C MP ####[address] [place] [address] Calcium [Mass/Vol] 8.4 mg/dL Low 8.6 - 10.3 [facility] Comment on above: Performed By: #### C MP ####[address] [address] Chloride [Moles/Vol] 111 mmol/L High 98 - 107 [facility] Comment on above: Performed By: #### C MP ####[address] [place] [address] Creatinine [Mass/Vol] 0.92 mg/dL Normal 0.50 - 1.05 [facility] Comment on above: Performed By: #### C MP ####[address] [place] [address] GFR- AM. >60 Normal >60 [facility] Comment on above: Result Comment: CALC ULATIONS OF ESTIMATED GFR ARE PERFORMED USING THE MDRD STUDY EQUATION FOR THE IDMS-TRACEABLE CREATININE METHODS. CLIN CHEM 2007;53:766-72 Performed By: #### C MP ####[address] [address] GFR-NON AM. >60 Normal >60 [facility] Comment on above: Performed By: #### C MP ####[address] [address] Glucose [Mass/Vol] 120 mg/dL High 74 - 99 [facility] Comment on above: Performed By: #### C MP ####[address] [address] HCO3 (Bld) [Moles/Vol] 22 mmol/L Normal 21 - 32 [facility] Comment on above: Performed By: #### C MP ####[address] [address] Potassium [Moles/Vol] 4.7 mmol/L Normal 3.5 - 5.3 [facility] Comment on above: Performed By: #### C MP ####[address] [address] Protein [Mass/Vol] 6.0 g/dL Low 6.4 - 8.2 [facility] [place] Comment on above: Performed By: #### C MP ####[address] [address] Sodium [Moles/Vol] 139 mmol/L Normal 136 - 145 [facility] [place] Comment on above: Performed By: #### C MP ####[address] [address] Urea nitrogen [Mass/Vol] 45 mg/dL High 6 - 23 [facility] Comment on above: Performed By: #### C MP ####[address] [address] Albumin [Mass/Vol] Canceled Normal [facility] [place] Comment on above: Order Comment: TEST COMPREHENSIVE PANEL WAS CANCELLED, 10/20/2018 16:05 ?Cancel Reason: Cancelled. Performed By: #### C MP #### [address] [address] ALP [Catalytic activity/Vol] Canceled Normal [facility] Comment on above: Order Comment: TEST COMPREHENSIVE PANEL WAS CANCELLED, 10/20/2018 16:05 ?Cancel Reason: Cancelled. Performed By: #### C MP #### [address] [place] [address] ALT [Catalytic activity/Vol] Canceled Normal [facility] Comment on above: Order Comment: TEST COMPREHENSIVE PANEL WAS CANCELLED, 10/20/2018 16:05 ?Cancel Reason: Cancelled. Result Comment: Shannon ents treated with Sulfasalazine may generate falsely decreased results for ALT. Performed By: #### C MP #### [address] [place] [address] Anion gap [Moles/Vol] Canceled Normal [facility] Comment on above: Order Comment: TEST COMPREHENSIVE PANEL WAS CANCELLED, 10/20/2018 16:05 ?Cancel Reason: Cancelled. Performed By: #### C MP #### [address] [place] [address] AST [Catalytic activity/Vol] Canceled Normal [facility] Comment on above: Order Comment: TEST COMPREHENSIVE PANEL WAS CANCELLED, 10/20/2018 16:05 ?Cancel Reason: Cancelled. Performed By: #### C MP #### [address] [place] [address] Bilirubin [Mass/Vol] Canceled Normal [facility] Comment on above: Order Comment: TEST COMPREHENSIVE PANEL WAS CANCELLED, 10/20/2018 16:05 ?Cancel Reason: Cancelled. Performed By: #### C MP #### [address] [place] [address] Calcium [Mass/Vol] Canceled Normal [facility] [place] Comment on above: Order Comment: TEST COMPREHENSIVE PANEL WAS CANCELLED, 10/20/2018 16:05 ?Cancel Reason: Cancelled. Performed By: #### C MP #### [address] [place] [address] Chloride [Moles/Vol] Canceled Normal [facility] Comment on above: Order Comment: TEST COMPREHENSIVE PANEL WAS CANCELLED, 10/20/2018 16:05 ?Cancel Reason: Cancelled. Performed By: #### C MP #### [address] [place] [address] Creatinine [Mass/Vol] Canceled Normal [facility] Comment on above: Order Comment: TEST COMPREHENSIVE PANEL WAS CANCELLED, 10/20/2018 16:05 ?Cancel Reason: Cancelled. Performed By: #### C MP #### [address] [place] [address] GFR- AM. Canceled Normal [facility] Comment on above: Order Comment: TEST COMPREHENSIVE PANEL WAS CANCELLED, 10/20/2018 16:05 ?Cancel Reason: Cancelled. Result Comment: CALC ULATIONS OF ESTIMATED GFR ARE PERFORMED USING THE MDRD STUDY EQUATION FOR THE IDMS-TRACEABLE CREATININE METHODS. CLIN CHEM 2007;53:766-72 Performed By: #### C MP #### [address] [place] [address] GFR-NON AM. Canceled Normal [facility] Comment on above: Order Comment: TEST COMPREHENSIVE PANEL WAS CANCELLED, 10/20/2018 16:05 ?Cancel Reason: Cancelled. Performed By: #### C MP #### [address] [place] [address] Glucose [Mass/Vol] Canceled Normal [facility] [place] Comment on above: Order Comment: TEST COMPREHENSIVE PANEL WAS CANCELLED, 10/20/2018 16:05 ?Cancel Reason: Cancelled. Performed By: #### C MP #### [address] [place] [address] HCO3 (Bld) [Moles/Vol] Canceled Normal [facility] Comment on above: Order Comment: TEST COMPREHENSIVE PANEL WAS CANCELLED, 10/20/2018 16:05 ?Cancel Reason: Cancelled. Performed By: #### C MP #### [address] [place] [address] Potassium [Moles/Vol] Canceled Normal [facility] Comment on above: Order Comment: TEST COMPREHENSIVE PANEL WAS CANCELLED, 10/20/2018 16:05 ?Cancel Reason: Cancelled. Performed By: #### C MP #### [address] [place] [address] Protein [Mass/Vol] Canceled Normal [facility] [place] Comment on above: Order Comment: TEST COMPREHENSIVE PANEL WAS CANCELLED, 10/20/2018 16:05 ?Cancel Reason: Cancelled. Performed By: #### C MP #### [address] [place] [address] Sodium [Moles/Vol] Canceled Normal [facility] [place] Comment on above: Order Comment: TEST COMPREHENSIVE PANEL WAS CANCELLED, 10/20/2018 16:05 ?Cancel Reason: Cancelled. Performed By: #### C MP #### [address] [place] [address] Urea nitrogen [Mass/Vol] Canceled Normal [facility] Comment on above: Order Comment: TEST COMPREHENSIVE PANEL WAS CANCELLED, 10/20/2018 16:05 ?Cancel Reason: Cancelled. Performed By: #### C MP #### [address] [place] [address] Clinical Intervention - Nguyễn talavera 10-20-2018 Clinical Intervention - Pharmacy Pharmacist's Clinical Intervention: Is this intervention medication reconciliation related: Yes, HISTORY Electronic Signatures: Helena Guillen (Certalia) (Signed 20-Oct-2018 12:41) Authored: Pharmacist's Clinical Intervention Last Updated: 20-Oct-2018 12:41 by Helena Guillen (Certalia) [facility] Clinical Intervention - Pharmacy Pharmacist's Clinical Intervention: Is this intervention medication reconciliation related: Yes, ALLERGY Electronic Signatures: Helena Guillen (Certalia) (Signed 20-Oct-2018 12:40) Authored: Pharmacist's Clinical Intervention Last Updated: 20-Oct-2018 12:40 by Helena Guillen (Certalia) [facility] Discharge Planning Noteon Discharge Planning Note Discharge Needs Assessment: Discharge Planning Assessment [id number] Readmission Within the Last 30 Daysno previous [...] Discharge Planning: Discharge Planning: Patient admitted from [place] to ICU for a syncopal episode 10/21/18 1225- Met with pt at bedside, she lives with her and daughter in a 1 story home, reports being independent, drives, uses a cane as needed. Pt has hx of DM II- has a working glucose meter and supplies. PCP is Dr Ambrose, seen 3 wks ago. Preferred pharmacy is [facility] in [place], reports taking her medications as prescribed and is able to afford them. Pt plans to return home, denies any needs. Ritu HERRING TCC Final Disposition/Discharg e: Disposition/Discharg e Information: Discharge/Transfer Information: Discharge/Transfer Date/[id number] Discharged Accompanied Byspouse Discharge Modewheelchair Transportation Methodprivate car Valuables/Medication s/Belongings Returnedyes Final DispositionHome Electronic Signatures: Judy Monet (RN) (Signed 20-Oct-2018 11:07) Authored: Discharge Planning Note Ritu Ruiz (SAS ANALYST) (Signed 21-Oct-2018 13:40) Authored: Discharge Planning Note Sharmin Mayfield (SHYANN) (Signed 22-Oct-2018 16:42) Authored: Final Disposition/Discharg e Last Updated: 22-Oct-2018 16:42 by Sharmin Mayfield (SHYANN) References: 1. Data Referenced From 5. Education 10/20/2018 10:55 AM 2. Data Referenced From Admission Risk Screen - Adult 10/20/2018 10:55 AM Normal [facility] EMR ADDONon 10-20-2018 ADDON CONFIRMATION REQUEST REC'D Normal [facility] Comment on above: Performed By: #### E MRAD #### [facility] [address] [address] [place] [address] GLUCOSE-POCTon 10-20-2018 Glucose [Mass/Vol] 120 mg/dL High 74 - 99 [facility] [place] Comment on above: Performed By: #### G BENNIE ####[facility] [address] [place] [address] History and Physical - Nanette Portillo 10-20-2018 [...] normal per the patient. She presented to [facility] on September 20 for evaluation of [...] Objective: Objective Information: Objective Information T PRBPSpO2 [id number]/609 8% Date/Time10/20 10: 12: 12: 12: 12:00 [...] obeys commands Best Verbal Response: (V5) oriented [place] Score: 15 Recent Lab Results: Results: Assessment [...] Admit to Inpatient Adult Community [place] [facility] [place] [place] [facility] Admitting Diagnosis, K92.0 Gastrointestinal hemorrhage with hematemesis , Attending Provider Ildefonso Starks David Admission Order Certification order has been placed by Ildefonso Starks Electronic Signatures: Ildefonso Starks) (Signed 20-Oct-2018 23:06) Authored: Signatures/Attestati on/Certification Co-Signer: Service, History of Present Illness, Comorbidities, Family History, Social History, Allergies, Medications Prior to Admission, Review of Systems, Objective, Assessment and Plan, Signatures/Attestati on/Certification Homero Enriquez (CONSTRUCTION TEACHER-CERTIFIED MASTER SAFE TECHNICIAN) (Signed 21-Oct-2018 05:40) Authored: Service, History of Present Illness, Comorbidities, Family History, Social History, Allergies, Medications Prior to Admission, Review of Systems, Objective, Assessment and Plan, Signatures/Attestati on/Certification Last Updated: 21-Oct-2018 05:40 by Homero Enriquez (CONSTRUCTION TEACHER-CERTIFIED MASTER SAFE TECHNICIAN) Normal [facility] PT/INRon 10-20-2018 INR Coag (PPP) [Relative time] 1.0 {INR} Normal 0.9 - 1.1 [facility] Comment on above: Performed By: #### P TINR ####[address] [address] PT Coag (PPP) [Time] 11.5 s Normal 9.7 - 12.7 [facility] Comment on above: Performed By: #### P TINR ####[address] [address] INR Coag (PPP) [Relative time] Canceled Normal [facility] Comment on above: Order Comment: TEST PT/INR WAS CANCELLED, 10/20/2018 16:05 ?Cancel Reason: Cancelled. Performed By: #### P TINR #### [address] [address] PT Coag (PPP) [Time] Canceled Normal [facility] Comment on above: Order Comment: TEST PT/INR WAS CANCELLED, 10/20/2018 16:05 ?Cancel Reason: Cancelled. Performed By: #### P TINR #### [address] [address] Patient Profile - Adult v2on 10-20-2018 Patient Profile - Adult v2 Profile: Initial Info: How to be AddressedBev Spoken Language PreferredEnglish (1) Are you currently using the Personal Electronic Health Record or [employer] Are you interested in learning more about [facility] for the management of your healthdeclined Stated Reason for AdmissionSyncope Limitations on Visitors/Phone [facility] Employment Statusretired Current or Previous Servicenone Patient Belongingssent home Medications Brought to Hospitalno History of MDROno General Health: Weight in kg99 kilogram(s) Weight in zfc855.2 pound(s) Height in feet5 feet Height in [...] in Mood/Behaviordenies Major Change/Loss/Stressor /Fearsdenies Techniques to [place] with Loss/Stress/Changeme ditation Substance: Current or Former [...] Significant Exposurenone Resource/Environment al Concernsnone [facility]tic[facility]ated [facility] Anticipated at Transitionnone Significant [...] - Preop v2 10/05/2018 7:24 AM Normal [facility] TROPONIN Ion 10-20-2018 Troponin I.cardiac [Mass/Vol] Canceled Normal [facility] Comment on above: Order Comment: per Nolvia [...] is performed using different testing methodology at [facility] than at [facility]. Direct result comparisons should only be made within the same method. Performed By: #### T ROP2 ####[id number] [place] [address] Troponin I.cardiac [Mass/Vol] ng/mL Normal 0.00 - 0.03 [facility] Comment on above: Result Comment: LESS THAN [...] is performed using different testing methodology at [facility] than at [facility]. Direct result comparisons should only be made within the same method. Performed By: #### T ROP2 ####[id number] [place] [address] Troponin I.cardiac [Mass/Vol] Canceled Normal [facility] Comment on above: Order Comment: TEST TROPONIN [...] is performed using different testing methodology at [facility] than at [facility]. Direct result comparisons should only be made within the same method. Performed By: #### T ROP2 ####[address] [place] [address] TYPE + SCREENon 10-20-2018 ABO TYPE O Normal [facility] Comment on above: Performed By: #### T +S ####[address] [place] [address] RH TYPE Positive Normal [facility] Comment on above: Performed By: #### T +S ####[address] [place] [address] ABO TYPE Canceled Normal [facility] Comment on above: Order Comment: TEST TYPE + SCREEN WAS CANCELLED, 10/20/2018 16:05 ?Cancel Reason: Cancelled. Performed By: #### T +S #### [address] [place] [address] RH TYPE Canceled Normal [facility] Comment on above: Order Comment: TEST TYPE + SCREEN WAS CANCELLED, 10/20/2018 16:05 ?Cancel Reason: Cancelled. Performed By: #### T +S #### [address] [place] [address] Alk Phos Isoenzymeson 2017 Alk-Phosphatase Bone 60 U/L High 0-55 [facility] Comment on above: Performed By: #### 1 [id number] #### [facility] [address] [place] [address] Alk-Phosphatase Liver 82 U/L Normal 0-94 [facility] Comment on above: Result Comment: INTE RPRETIVE INFORMATION: Alk-Phosphatase Liver Calc Bone Specific Alkaline Phosphatase (5281066) and 5'-nucleotidase (4714254) may be useful in identifying disorders of bone and liver, respectively. Performed By: #### 1 [id number] #### [facility] [address] [place] [address] Alk-Phosphatase Other 0 U/L Normal [facility] Comment on above: Result Comment: Perf ormed by [employer], [address] [facility] [place] [address] [email or web address], Sedrick Sue MD - Lab. Director Performed By: #### 1 [id number] #### [facility] [address] [place] [address] ALP enzyme act/vol 142 U/L High 40-120 [facility] Comment on above: Performed By: #### 1 [id number] #### [facility] [address] [place] [address] Epunr-0-Jhfzsdefcqp, Totalon 07-28-2017 Bnvnv-8-Qqrhcqzkeph, Total 125 mg/dL Normal 84-218 [facility] Anti-Nuclear Ab Titer w/ALIYAH Panelon 07-28-2017 Anti-Nuclear Ab (GILL) Pattern HOMOGENEOUS Normal [facility] Anti-Nuclear Ab Titer 1:40 Normal [facility] Centromere (ALIYAH) Ab, IgG 0.2 AI Normal [facility] Comment on above: Result Comment: REF VALUES < 1.0 = NEGATIVE >=1.0 = POSITIVE Chromatin (ALIYAH) Ab, IgG <0.2 [facility] Comment on above: Result Comment: REF VALUES < 1.0 = NEGATIVE >=1.0 = POSITIVE dsDNA Ab, IgG <1.0 [facility] Comment on above: Result Comment: REF VALUES NEGATIVE: <= 4 IU/ML EQUIVOCAL: 5- 9 IU/ML POSITIVE: >=10 IU/ML PARISA-1 (ALIYAH) Ab, IgG <0.2 [facility] Comment on above: Result Comment: REF VALUES < 1.0 = NEGATIVE >=1.0 = POSITIVE Ribonucleic Prot (ALIYAH) Ab, IgG <0.2 Normal [facility] Comment on above: Result Comment: REF VALUES < 1.0 = NEGATIVE >=1.0 = POSITIVE Ribosomal P Prot (ALIYAH) Ab, IgG <0.2 Normal [facility] Comment on above: Result Comment: REF VALUES < 1.0 = NEGATIVE >=1.0 = POSITIVE Scleroderma (Scl-70) (ALIYAH) Ab, IgG <0.2 Normal [facility] Comment on above: Result Comment: REF VALUES < 1.0 = NEGATIVE >=1.0 = POSITIVE Alcazar (ALIYAH) Ab, IgG <0.2 Normal [facility] Comment on above: Result Comment: REF VALUES < 1.0 = NEGATIVE >=1.0 = POSITIVE Alcazar/HAUNTED HISTORY TOUR GUIDE (ALIYAH) Ab, IgG <0.2 Normal [facility] Comment on above: Result Comment: REF VALUES < 1.0 = NEGATIVE >=1.0 = POSITIVE SSA (Ro) (ALIYAH) Ab, IgG <0.2 Normal [facility] Comment on above: Result Comment: REF VALUES < 1.0 = NEGATIVE >=1.0 = POSITIVE SSB (La) (ALIYAH) Ab, IgG <0.2 Normal [facility] Comment on above: Result Comment: REF VALUES < 1.0 = NEGATIVE >=1.0 = POSITIVE Anti-Nuclear Ab W/Rfx to Tit er, ENAon 07-28-2017 Anti-Nuclear Ab, W/Rfx to Titer Positive Abnormal NEGATIVE [facility] Ceruloplasminon 07-28-2017 Ceruloplasmin 30 mg/dL Normal 20-60 [facility] Ferritinon 07-28-2017 Ferritin mass conc 348 ng/mL High 8-150 [facility] Comment on above: Performed By: #### 1 [id number] #### [facility] [address] [place] [address] Hepatic Function Panelon Albumin mass conc 4.1 g/dL Normal 3.4-5.0 [facility] Comment on above: Performed By: #### 1 [id number] #### [facility] [address] [place] [address] Albumin/Globulin mass ratio 1.4 {ratio} Normal 0.9-2.4 [facility] Comment on above: Performed By: #### 1 [id number] #### [facility] [address] [place] [address] ALP enzyme act/vol 141 U/L High 45-117 [facility] Comment on above: Performed By: #### 1 [id number] #### [facility] [address] [place] [address] ALT enzyme act/vol 44 U/L Normal 7-45 [facility] Comment on above: Performed By: #### 1 [id number] #### [facility] [address] [place] [address] AST enzyme act/vol 29 U/L Normal 13-39 [facility] Comment on above: Performed By: #### 1 [id number] #### [facility] [address] [place] [address] Bilirubin mass conc 0.3 mg/dL Normal 0.0-1.2 [facility] Comment on above: Performed By: #### 1 [id number] #### [facility] [address] [place] [address] Bilirubin.direct mass conc 0.1 mg/dL Normal 0.0-0.3 [facility] Comment on above: Performed By: #### 1 [id number] #### [facility] [address] [place] [address] Protein mass conc 7.0 g/dL Normal 6.4-8.2 [facility] Comment on above: Performed By: #### 1 [id number] #### [facility] [address] [place] [address] Hepatitis A Total Abon 07-28 Hepatitis A Total Ab REACTIVE Abnormal NONREACTIVE [facility] Comment on above: Result Comment: Shannon ents receiving more than 5 mg/day of biotin may have interf in test results. A sample should be taken no sooner than eight after previous dose. Contact [phone] for additional infor Hepatitis B Core Antibodies, Totalon 07-28-2017 Hepatitis B Core Antibodies, Total NONREACTIVE Normal NONREACTIVE [facility] Comment on above: Result Comment: Shannon ents receiving more than 5 mg/day of biotin may have interf in test results. A sample should be taken no sooner than eight after previous dose. Contact [phone] for additional infor Hepatitis B Surface Abon Hepatitis B Surface Ab <3.1 Normal <10 [facility] Comment on above: Result Comment: INTE RPRETIVE CRITERIA: <10 mIU/mL....NONREACTIVE >=10 mIU/mL...REACTIVE . Patients receiving more than 5 mg/day of biotin may have interf in test results. A sample should be taken no sooner than eight after previous dose. Contact [phone] for additional infor Hepatitis B Surface Antigeno n 07-28-2017 Hepatitis B Surface Antigen NONREACTIVE Normal NONREACTIVE [facility] Comment on above: Result Comment: [place] ents receiving more than 5 mg/day of biotin may have interf in test results. A sample should be taken no sooner than eight after previous dose. Contact [phone] for additional infor Hepatitis C Antibody w/rfx t o Confirmon 07-28-2017 Hepatitis C Antibody NON-REACTIVE Normal NONREACTIVE [facility] Comment on above: Result Comment: Shannon ents receiving more than 5 mg/day of biotin may have interf in test results. A sample should be taken no sooner than eight after previous dose. Contact [phone] for additional infor Iron Profileon 07-28-2017 Iron Binding Capacity 331 ug/dL Normal 250-565 [facility] Comment on above: Performed By: #### 1 [id number] #### [facility] [address] [place] [address] Iron mass conc 72 ug/dL Normal 35-150 [facility] Comment on above: Performed By: #### 1 [id number] #### [facility] [address] [place] [address] Percent Saturation 22 % Normal 14-27 [facility] Comment on above: Performed By: #### 1 [id number] #### [facility] [address] [place] [address] Unbound Iron Binding Capacity 259 ug/dL Normal 90-340 [facility] Comment on above: Performed By: #### 1 [id number] #### [facility] [address] [place] [address] Mitochondrial M2 Ab, IgGon 0 07-28-2017 Mitochondrial M2 Ab, IgG 3.0 Units Normal 0.0-20.0 [facility] Comment on above: Result Comment: INTE RPRETIVE INFORMATION: Mitochondrial (M2) Antibody, IgG 20.0 Units or less ......... Negative 20.1 - 24.9 Units........... Equivocal 25.0 Units or greater....... Positive Performed by [employer], [address] [place] [address] [email or web address], Sedrick Sue MD - Lab. Director Performed By: #### 1 [id number] #### MARY [address] [place] [address] Smooth Muscle (F-Actin) IgG w/Rfxon 07-28-2017 Smooth Muscle Ab, IgG Positive Normal NEGATIVE [facility] Smooth Muscle Ab, IgG Titer 1:20 Normal [facility] PROGRESSon 04-21-2017 [facility] NOTES Normal [facility] Vital Signs Date Time Vital Sign Value Performing Clinician Facility 06-07-2024 10:16-0500 Body height 160 cm Bobbi Barker MD Work Phone: [facility] 06-07-2024 10:16-0500 Body mass index (BMI) [Ratio] 34.54 kg/m2 Bobbi Barker MD Work Phone: [facility] 06-07-2024 10:16-0500 Body weight 88.45 kg Bobbi Barker MD Work Phone: [facility] 06-07-2024 10:16-0500 Diastolic blood pressure 64 mm[Hg] Bobbi Barker MD Work Phone: [facility] 06-07-2024 10:16-0500 Heart rate 76 /min Bobbi Barker MD Work Phone: [facility] 06-07-2024 10:16-0500 Respiratory rate 16 /min Bobbi Barker MD Work Phone: [facility] 06-07-2024 10:16-0500 SaO2% (BldA) [Mass fraction] 96 % Bobbi Barker MD Work Phone: [facility] 06-07-2024 10:16-0500 Systolic blood pressure 112 mm[Hg] Bobbi Barker MD Work Phone: [facility] 05-12-2023 09:24-0500 Body height 158.8 cm Michael Villa DO Work Phone: [facility] 05-12-2023 09:24-0500 Body mass index (BMI) [Ratio] 34.56 kg/m2 Michael Villa DO Work Phone: [facility] 05-12-2023 09:24-0500 Body temperature 98.1 [degF] Michael Villa DO Work Phone: [facility] 05-12-2023 09:24-0500 Body weight 87.09 kg Michael Villa DO Work Phone: [facility] 04-08-2023 15:06-0500 Diastolic blood pressure 71 mm[Hg] MD Bree Ambrose Work Phone: [facility] 04-08-2023 15:06-0500 Heart rate 75 /min MD Bree Ambrose Work Phone: [facility] 04-08-2023 15:06-0500 Respiratory rate 18 /min MD Bree Ambrose Work Phone: [facility] 04-08-2023 15:06-0500 SaO2% (BldA) [Mass fraction] 97 % MD Bree Ambrose Work Phone: [facility] 04-08-2023 15:06-0500 Systolic blood pressure 163 mm[Hg] MD Bree Ambrose Work Phone: [facility] 04-08-2023 13:28-0500 Body height 160.02 cm MD Bree Ambrose Work Phone: [facility] 04-08-2023 13:28-0500 Body temperature 98.2 [degF] MD Bree Ambrose Work Phone: [facility] 04-08-2023 13:28-0500 Body weight 88.45 kg MD Bree Ambrose Work Phone: [facility] Encounters Encounter Date Encounter Type Care Provider Facility Start: 11-20-2024 End: 11-20-2024 Bamboo flowsheet [facility] Start: 11-20-2024 End: 11-20-2024 Bamboo flowsheet Harris Foley MD [facility] Start: 11-20-2024 End: 11-20-2024 Postop follow up visit related to original px Harris Foley MD Work Phone: [facility] Comment on above: Encounter for remova l of sutures (Primary Dx) Start: 11-20-2024 End: 11-20-2024 ambulatory HARRIS FOLEY Not Available Start: 11-06-2024 End: 11-06-2024 Patient encounter procedure Harris Foley MD Work Phone: [facility] [place] [facility] Comment on above: Basal cell carcinoma (BCC) of chest (Primary Dx) Start: 11-06-2024 End: 11-06-2024 ambulatory HARRIS FOLEY Not Available Start: 11-06-2024 End: 11-06-2024 Bamboo flowssatnam Foley MD Work Phone: [facility] Start: 11-06-2024 End: 11-06-2024 Bamboo flowssatnam Foley MD Work Phone: [facility] Start: 11-03-2024 End: 11-03-2024 Bamboo flowsheet Shelton Triana DPM Work Phone: [facility] Start: 11-03-2024 End: 11-03-2024 Bamboo flowsheet Shelton Triana DPM Work Phone: [facility] Start: 11-03-2024 End: 11-03-2024 Patient encounter procedure Shelton Triana DPM Work Phone: [facility] Comment on above: Type II diabetes [...] 09-29-2024 End: 09-29-2024 Bamboo flowsheet Joselo Thrasher CONSTRUCTION TEACHER-CERTIFIED MASTER SAFE TECHNICIAN Work Phone: [facility] Start: 09-29-2024 End: 09-29-2024 Bamboo flowsheet Joselo Thrasher CONSTRUCTION TEACHER-CERTIFIED MASTER SAFE TECHNICIAN Work Phone: [facility] Start: 09-29-2024 End: 09-29-2024 Office outpatient visit 15 minutes Joselo Thrasher CONSTRUCTION TEACHER-CERTIFIED MASTER SAFE TECHNICIAN Work Phone: [facility] Comment on above: Seborrheic keratosis (Primary Dx); Capillary angioma; Lentigines; History of basal cell carcinoma; Actinic keratosis; Neoplasm of unspecified behavior of bone, soft tissue, and skin Start: 09-29-2024 End: 09-29-2024 ambulatory JOSELO THRASHER Not Available Start: 09-11-2024 End: 09-11-2024 ambulatory Arley Keller [facility] Start: 09-11-2024 End: 09-11-2024 Patient encounter procedure Arley Keller [facility] Start: 08-31-2024 End: 08-31-2024 Lab Drop off Arley Keller [facility] Start: 08-31-2024 End: 08-31-2024 ambulatory Arley Keller Facility:[facility] Start: 07-07-2024 End: 07-07-2024 Bamboo flowsheet Shelton Triana DPM Work Phone: [facility] Start: 07-07-2024 End: 07-07-2024 Bamboo flowsheet Shelton Triana DPM Work Phone: [facility] Start: 07-07-2024 End: 07-07-2024 Office outpatient visit 15 minutes Shelton Triana DPM Work Phone: [facility] Comment on above: Type II diabetes [...] Start: 06-15-2024 End: 06-15-2024 ambulatory Randolph Shah Facility:[facility] Start: 06-15-2024 End: 06-15-2024 Patient encounter procedure Randolphelliott Shah [facility] Start: 06-07-2024 End: 06-07-2024 Bamboo flowsheet Bobbi Barker MD Work Phone: [facility] Start: 06-07-2024 End: 06-07-2024 Bamboo flowsheet Bobbi Barker MD Work Phone: [facility] Start: 06-07-2024 End: 06-07-2024 Office outpatient visit 25 minutes Bobbi Barker MD Work Phone: [facility] Comment on above: Type 2 diabetes adela itus with hyperglycemia, with long-term current use of insulin (CMS/HCC) (Primary Dx); Vitamin D deficiency; Insulin long-term use (CMS/HCC); Primary hypertension (CMS/HCC); Hyperlipemia, mixed (CMS/[facility]); Encounter for dietary consultation; Class 1 obesity due to excess calories with serious comorbidity and body mass index (BMI) of 34.0 to 34.9 in adult Start: 06-07-2024 End: 06-07-2024 ambulatory BOBBI BARKER Not Available Start: 06-02-2024 End: 06-02-2024 ambulatory Arley Keller Facility[facility] Start: 05-09-2024 End: 05-09-2024 Patient encounter procedure Arley Keller MD Work Phone: [facility] [address] Work Phone: Start: 05-09-2024 End: 05-09-2024 ambulatory Arley Keller MD Work Phone: [facility] Work Phone: Start: 05-05-2024 End: 05-05-2024 ambulatory Arley Keller Facility:[facility] Start: 05-05-2024 End: 05-19-2024 Patient encounter procedure Randolph Nolvia Shah [facility] Start: 04-25-2024 End: 04-25-2024 Patient encounter procedure Arley Keller MD Work Phone: [facility] [address] Work Phone: Start: 04-25-2024 End: 04-25-2024 ambulatory Arley Keller MD Work Phone: [facility] Work Phone: Start: 02-29-2024 End: 02-29-2024 ambulatory Arley Keller Facility: [facility] Start: 12-21-2023 End: 12-21-2023 Lab Drop off Arley Keller [facility] Start: 12-21-2023 End: 12-21-2023 ambulatory Arley Keller Facility:[facility] Start: 12-16-2023 End: 12-16-2023 ambulatory Micaela Palomino Facility: [facility] Start: 11-08-2023 End: 11-08-2023 ambulatory [facility] Start: 08-31-2023 End: 08-31-2023 Lab Drop off Arley Keller [facility] Start: 08-31-2023 End: 08-31-2023 ambulatory Arley Keller Facility:[facility] Start: 07-09-2023 End: 07-09-2023 ambulatory RICKY VALDIVIA Facility: [facility] Start: 05-12-2023 Cherrie santana DO Work [...] Start: 05-11-2023 End: 05-11-2023 ambulatory Agustín Lacey Facility:[facility] Start: 04-08-2023 End: 04-08-2023 Emergency department patient visit MD Bree Ambrose Work Phone: [facility] Work Phone: Start: 03-16-2023 End: 03-16-2023 ambulatory MD Bree Ambrose Work Phone: [facility] Work Phone: Start: 03-16-2023 End: 03-16-2023 Patient encounter procedure MD Bree Ambrose Work Phone: [facility] [address] Work Phone: Start: 06-30-2022 End: 06-30-2022 Lab Drop off Micaela Palomino [facility] Start: 05-21-2022 End: 05-22-[address] ANTONINA NEWSOME Facility:[facility] Start: 05-14-2022 End: 05-22-[address] BREE AMBROSE . Facility:[facility] Start: 01-22-2022 End: 01-23-[address] BREE AMBROSE . Facility:[facility] Start: 12-23-2021 Office outpatient vi sit 15 minutes Bree Ambrose Work Phone: [facility] [address] [facility] Work Phone: Start: 12-23-[address] Ary Arrieta [facility] ility:[id number] Start: 12-02-2021 Patient encounter procedure Bree Ambrose Work Phone: [facility] Work Phone: Start: 11-14-2021 End: 12-10-[address] BREE AMBROSE . Facility:[facility]1 Start: 02-11-2021 Patient encounter procedure Bree Ambrose Work Phone: [facility] [address] [address] [facility] Work Phone: Start: 02-11-[address] [facility] Facility[id number] Start: 06-01-2018 Patient encounter procedure PROVIDER UNKNOWN Facility:7 Start: 09-09-2017 Patient encounter procedure PROVIDER UNKNOWN Facility:7 Start: 08-04-2017 Patient encounter procedure PROVIDER UNKNOWN Facility:7 Start: 07-28-2017 Patient encounter procedure PROVIDER UNKNOWN Facility:7 Start: 07-28-2017 Patient encounter procedure PROVIDER UNKNOWN Facility:7 Start: 04-21-2017 Ambulatory [facility] Procedures Date Procedure Procedure Detail Performing Clinician Start: 11-06-2024 SKIN REPAIR Harris cantu MD Work Phone: Start: 11-06-2024 SKIN EXCISION Harris wong MD Work Phone: Start: 09-29-2024 SKIN / NAIL BIOPSY Apurva lie A Anna Marie CONSTRUCTION TEACHER-CERTIFIED MASTER SAFE TECHNICIAN Work Phone: Start: 09-29-2024 CRYOTHERAPY SKIN LESION Joselo Thrasher CONSTRUCTION TEACHER-CERTIFIED MASTER SAFE TECHNICIAN Work Phone: Start: 06-07-2024 Gluc bld gluc [...] on above: Performed By: #### T +S ####[address] [place] [address] Start: 10-20-2018 Antibody screen Comment on above: Order Comment: TEST TYPE + SCREEN WAS CANCELLED, 10/20/2018 16:05 ?Cancel Reason: Cancelled. Performed By: #### T +S #### [address] [place] [address] Start: 04-05-2016 History of placement of stent [...] [facility] Start: 12-18-2024 ambulatory Ambulatory Facility:[facility] Start: 12-06-2024 End: 12-06-2024 Patient encounter procedure 12/06/2024 9:50 AM EDT Office Visit [facility] [address] [place] [address] Bobbi Barker MD [address] [place] [address] [facility] Start: 11-30-2024 End: 11-30-2024 Patient encounter procedure 11/30/2024 10:20 AM EDT [facility] [address] [place] [address] Bobbi Barker MD [address] [place] [address] [facility] Start: 11-24-2024 End: 11-24-2024 Patient encounter procedure 11/24/2024 11:15 AM EDT [facility] [address] [place] [address] Shelton Triana, DPM [address] [place] [address] [facility] [place] [facility] Start: 11-20-2024 End: 11-20-2024 Patient encounter procedure [facility] Comment on above: Arrived Start: 11-06-2024 End: 11-06-2024 Patient encounter procedure [facility] [place] [facility] Comment on above: Arrived Start: 11-03-2024 End: 11-03-2024 Patient encounter procedure 11/03/2024 10:30 AM EDT Office Visit [facility] [place] [facility] [address] [place] [address] Shelton Triana, DPM [address] [place] [address] Arrived [facility] Comment on above: Arrived Start: 09-29-2024 End: 09-29-2024 [facility] Comment on above: Arrived Start: 07-07-2024 End: 07-07-2024 Patient encounter procedure 07/07/2024 8:15 AM EDT Office Visit [facility] [address] [place] [phone] Shelton Triana, DPM [address] [place] [address] [facility] Comment on above: Arrived Start: 06-07-2024 End: 06-07-2024 Patient encounter procedure 06/07/2024 10:20 AM EST [facility] [address] [place] [phone] Bobbi Barker MD [address] [place] [address] Arrived [facility] Comment on above: Arrived Start: 09-27-2023 End: 09-27-2023 Patient encounter procedure 09/27/2023 10:55 AM EDT Office Visit [facility] [address] [place] [phone] Joselo Thrasher, CONSTRUCTION TEACHER-CERTIFIED MASTER SAFE TECHNICIAN [address] [place] [address] [facility] Start: 06-23-2023 End: 06-23-2023 Patient encounter procedure 06/23/2023 9:30 AM EDT Office Visit [facility] [address] [place] [address] Michael Villa, [address] [place] [address] [facility] Start: 06-17-2023 End: 06-17-2023 Patient encounter procedure 06/17/2023 11:00 AM EDT Office Visit [facility] [address] [place] [address] Shelton Triana, MARTINA [address] [place] [address] [facility] Start: 05-12-2023 End: 05-12-2023 Patient encounter procedure 05/12/2023 9:45 AM EST Office Visit [facility] [address] [place] [phone] Michael Villa, DO [address] [facility] [place] [address] Traumatic closed displaced fracture of right shoulder with anterior dislocation with routine healing, subsequent encounter (Primary Dx) [facility] Comment on above: Traumatic closed displaced fracture of r ight shoulder with anterior dislocation with routine healing, subsequent encounter (Primary Dx) Start: 12-23-2021 GENTRY, Provider: Kenroy Low, Status: Pen, Time: 2:40 PM GENTRY, Provider: Kenroy Low, Status: Pen, Time: 2:40 PM [facility]uc[facility] Work Phone: Dermatopathology exam Dermatopat hology exam Pathology and Cytology Timed Neoplasm of unspecified behavior of bone, soft tissue, and skin Release Upon Ordering for 1 Occurrences starting 09/29/2024 [facility] Work Phone: Comment on above: Release Upon Ordering for 1 Occurrences starting 09/29/2024 Dermatopathology exam Dermatopat hology exam Pathology and Cytology Timed Basal cell carcinoma (BCC) of chest Release Upon Ordering for 1 Occurrences starting 11/06/2024 [facility] Work Phone: Comment on above: Release Upon Ordering for 1 Occurrences starting 11/06/2024 Patient Education Shoulder Dislocation [facility] Work Phone: Patient referral [facility] Work Phone: Immunizations Immunization Date Immunization Notes Care Provider Vamsi peña 12-27-2023 influenza virus vaccine, unspecified formulation Randolph Shah [facility] 12-22-2022 influenza virus vaccine, unspecified formulation Arley Keller [facility] 12-22-2022 Influenza, Seasonal, Quadrivalent, Adjuvanted Bobbi Barker MD Work Phone: [facility] 01-22-2022 influenza virus vaccine, unspecified formulation Micaela Candelario [facility] 01-22-2022 Influenza, Seasonal, Quadrivalent, Adjuvanted Bobbi Barker MD Work Phone: [facility] 01-17-2020 Fluad Quadrivalent 0 .5 ML Intramuscular Prefilled Syringe Bree E Ambrose Work Phone: [facility] 01-17-2020 influenza virus vaccine, unspecified formulation Micaela Candelario [facility] 01-04-2019 influenza virus vaccine, unspecified formulation Micaela Candelario [facility] 01-04-2019 Seasonal trivalent influenza vaccine, adjuvanted, preservative free Bree E Ambrose Work Phone: [facility]Yhylwdelkd-Lu[facility] [address] Work Phone: 12-31-2017 influenza virus vaccine, unspecified formulation Micaela Candelario [facility] 12-31-2017 Influenza, injectabl e, Madin [place] Canine Kidney, preservative free, quadrivalent Bree E Ambrose Work Phone: [facility]-Wcqhyhclei-Uxla [facility] Work Phone: 02-16-2017 influenza virus vaccine, unspecified formulation Micaela Candelario [facility] 02-16-2017 influenza, injectabl e, quadrivalent, preservative free Bree E Ambrose Work Phone: ZQ-Cdldyribmk-Dhlm [facility] [address] Work Phone: 04-05-2015 pneumococcal polysaccharide vaccine, 23 valent Bree Venegasight Work Phone: [facility] 02-03-2015 influenza virus vaccine, unspecified formulation Arley Keller [facility] 02-03-2015 influenza, injectabl e, madin tejas canine kidney, preservative free Bree Venegasight Work Phone: TP-Qhrymorrcg-Jdnp ia 101 Work Phone: 11-21-2014 pneumococcal conjuga te vaccine, 13 valent Bree Cisneros Halie Work Phone: [facility] NEGATED: Highlighted row has not occurred!08-04-2022 SARS-CoV-2 mRNA (tozinameran 5y-11y) vaccine Arley Keller [facility] Payers Date Payer Category Payer Self-pay [id number] 2024 Medicare (Managed Care) [facility] MED[facility] [id number] 2024 Private Health Insurance [id number] 2022 Medicare [id number] 1959 Medicare [id number] 1959 Unknown [id number] 1959 Unknown [id number] 1953 Unknown [id number] 2.16.840.1.717631.3.579. 2.355 1953 Unknown [id number] 2.16.840.1.460786.3.579. 2.355 1953 Unknown [id number] 2.16.840.1.578272.3.579. 2.355 1953 Unknown [id number] 2.16.840.1.380087.3.579. 2.355 1953 Unknown [id number] 2.16.840.1.224732.3.579. 2.355 1953 Unknown [id number] 2.16.840.1.679234.3.579. 2.356 1953 Unknown [id number] 2.16.840.1.247735.3.579. 2.356 1953 Unknown [id number] 2.16.840.1.793707.3.579. 2.593 1953 Unknown [id number] 2.16.840.1.940423.3.579. 2.593 1953 Unknown [id number] 2.16.840.1.746716.3.579. 2.593 1953 Unknown [id number] 2.16.840.1.116322.3.579. 2.593 1953 Unknown [id number] 2.16.840.1.107506.3.579. 2.727 1953 Unknown [id number] 2.16.840.1.948993.3.579. 2.727 1953 Unknown [id number] 2.16.840.1.906177.3.579. 2.727 1953 Unknown [id number] 2.16.840.1.686148.3.579. 2.727 1953 Unknown [id number] 2.16.840.1.431812.3.579. 2. 1953 Unknown [id number] 2.16.840.1.126160.3.579. 2. 1953 Unknown [id number] 2.16.840.1.584685.3.579. 2. 1953 Unknown [id number] 2.16.840.1.599912.3.579. 2. 1953 Unknown [id number] 2.16.840.1.817918.3.579. 2. 1953 Unknown [id number] 2.16.840.1.865716.3.579. 2. 1953 Unknown [id number] 2.16.840.1.428637.3.579. 2. 1953 Unknown [id number] 2.16.840.1.020143.3.579. 2. 1953 Unknown [id number] 2.16.840.1.018438.3.579. 2. 1953 Unknown [id number] 2.16.840.1.245656.3.579. 2. 1953 Unknown [id number] 2.16.840.1.486336.3.579. 2. 1953 Unknown [id number] 2.16.840.1.964212.3.579. 2.1258 1953 Unknown [id number] 2.16.840.1.999066.3.579. 2.1258 1953 Unknown [id number] 2.16.840.1.908233.3.579. 2.1258 1953 Unknown [id number] 2.16.840.1.286653.3.579. 2.1259 1953 Unknown [id number] 2.16.840.1.592605.3.579. 2.1259 1953 Unknown [id number] 2.16.840.1.973984.3.579. 2.1259 Unknown [id number] Unknown Unknown [id number] Unknown [id number] 2.16.840.1.120750.3.579. 2.531 Unknown [id number] 2.16.840.1.517391.3.579. 2.531 Social History Date Type Detail Facility Start: 04-21-2023 End: 11-20-2024 No illicit drug use No illicit drug use [facility] [address] Work Phone: Start: 06-30-2022 End: 08-31-2024 Tobacco smoking status Never smoked tobacco (finding) [facility] Comment on above: denies use Tobacco smoking status Never [facility] Comment on above: denies use Start: 04-21-2023 End: 11-20-2024 Sex Assigned At Female [facility] Start: 1955 Sex Assigned At Female [facility] Start: 04-21-2023 End: 09-17-2023 Tobacco smoking status OKIS Ex-smoker [facility] Start: 06-03-1964 End: 06-04-1979 [...] Start: 12-17-2020 End: 04-26-2024 Sex Female (finding) [facility] Sexual Orientation [facility] Clinical Notes 05-12-2023 to 11-20-2024 Harris [...] Visit: as scheduled documented in this encounter [facility] 11-06-2024 History of Present illness Narrative Images [...] CELL CARCINOMA (BCC) OF CHEST Med chest Poston macule at the biopsy site. Skin excision [...] types Check Margins: yes Previous accession number: [id number] Diagnosis: (C44.519) Basal cell carcinoma (BCC) of chest Plan: Skin excision Excision today. See operative report. Return to clinic prior to next scheduled visit for any signs or symptoms of recurrence, reviewed the signs and symptoms. Follow up: 14 days for s/r documented in this encounter [facility] 11-03-2024 History of Present illness Narrative Images [...] depth diabetic shoes (A5500), Dr. Sara Roberson #[id number] purple size 11XW, which fit patient well [...] depth diabetic shoes (A5500), Dr. Sara Roberson #[id number] purple size 11XW, which fit patient well [...] weeks for recheck. documented in this encounter [facility] 09-29-2024 History of Present illness Narrative Images [...] limited to risks of scarring, darker or field reviewer pigmentary changes, recurrence, incomplete removal and infection. [...] BONE, SOFT TISSUE, AND SKIN Medial Chest Poston papule Lesion biopsy Type of biopsy: tangential [...] Visit: 1 year documented in this encounter [facility] 07-07-2024 History of Present illness Narrative Images [...] pair of diabetic shoes (DR.Comfort Karol browning #[id number] 11 XW) as well reappointment orthotics and [...] of skin breakdown. documented in this encounter [facility] 06-07-2024 History of Present illness Narrative Lj [...] AST 40, ALT 97 (5-52). 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 Vitamin D deficiency Insulin long-term use ([facility]) Primary hypertension ([facility]) Hyperlipemia, mixed ([facility]) Encounter for dietary consultation Diet and exercise reviewed with the patient Class 1 obesity due to excess calories with serious comorbidity and body mass index (BMI) of 34.0 to 34.9 in adult Follow up in about 6 months (around 12/08/2024). documented in this encounter [facility] 02-29-2024 Note Patient Education Nutrition BMI for [...] for Disease Control and Prevention: cdc.gov ??? [place] Heart Association: heart.org ??? National Heart, Lung, and Blood Tatamy: nhlbi.nih.gov This information is not intended to replace advice given to you by your health care provider. Make sure you discuss any questions you have with your health care provider. Document Revised: 12/10/2022 Document Reviewed: 12/03/2022 Simple Beat Patient Education ? 2023 paOnde. [facility] 12-16-2023 Note Patient Education Emergency Medicine Heart Attack A heart attack occurs when blood and oxygen supply to the heart is cut off. A heart attack can cause damage to the heart that cannot be fixed. A heart attack is also called a myocardial infarction, or PR. If you think you are having a [...] these instructions at home: Medicines ? Take orbe-drp-kpjdzip and prescription medicines only as told by [...] ? You (more content not included)... [facility] 11-08-2023 Note [facility] Cardiology Clinic Note Chief Complaint: Patient here [...] Allergies Adalimumab, Diclofenac, Diphenhydramine, Oxaprozin, Oxycodone-acetaminophen, and Szizmlp-cfj-efu reductase inhibitors Medications Current Outpatient Medications: amitriptyline [...] Carotid US Ech (more content not included)... [facility] 05-12-2023 History of Present illness Narrative [...] disease Father Brain cancer Sibling Cancer Brother [facility] Rheumatologic disease Sister Danna Keen Melanoma [...] saved to the permanent record in the [place] office. ASSESSMENT AND PLAN: Assessment/Plan Follow up [...] these. Physical therapy script was sent to [facility] for evaluation and treat three times a [...] took 35 minutes. documented in this encounter [facility] Evaluation + Plan note Future Appointments Appointment Date:08/04/2022 10:40:00 AM Scheduled Provider:BREE AMBROSE MD Location:[facility] Appointment Type: Open Diagnostic Tests PendingUrine Culture 06/30/22 [facility] Evaluation + Plan note Future Appointments Appointment Date:12/14/2023 09:30:00 AM Scheduled Provider: Location:[facility] Appointment Type: Medicare Wellness Subsequent Appointment Date:02/29/2024 09:15:00 AM Scheduled Provider:Arley Keller MD Location:[facility] Appointment Type: Open [facility] Evaluation + Plan note Future Appointments Appointment Date:02/29/2024 09:15:00 AM Scheduled Provider:Arley Keller MD Location:[facility] Appointment Type: Open Appointment Date:12/18/2024 01:00:00 PM Scheduled Provider: Location:[facility] Appointment Type:FM Medicare Wellness Subsequent Diagnostic Tests PendingHCV Antibody RFX to Quant PCR 12/21/23 Future Scheduled TestsMA Mamm Screen w/CAD if perf and 3D Jt 12/16/23 [facility] Evaluation + Plan note Future Appointments Appointment Date:05/19/2024 11:15:00 AM Scheduled Provider:Randolph Shah [facility] Appoint[facility] Type:Cardiology New Patient (FT) Appointment Date:08/29/2024 09:15:00 AM Scheduled Provider:Arley Keller MD Location:[facility] Appointment Type: Open Appointment Date:12/18/2024 01:00:00 PM Scheduled Provider: Location:[facility] Appointment Type: Medicare Wellness Subsequent Future Scheduled TestsMA Mamm Screen w/CAD if perf and 3D Jt 12/16/23 [facility] Evaluation + Plan note Future Appointments Appointment Date:06/02/2024 11:15:00 AM Scheduled Provider:Randolph Shah [facility] Appointment Type:Cardiology New Patient (FT) Appointment Date:08/29/2024 09:15:00 AM Scheduled Provider:Arley Keller MD Location:[facility] Appointment Type: Open Appointment Date:12/18/2024 01:00:00 PM Scheduled Provider: Location:[facility] Appointment Type: Medicare Wellness Subsequent Future Scheduled TestsMA Mamm Screen w/CAD if perf and 3D Jt 12/16/23 [facility] Evaluation + Plan note Future Appointments Appointment Date:08/29/2024 09:15:00 AM Scheduled Provider:Arley Keller MD Location:[facility] Appointment Type: Open Appointment Date:12/18/2024 01:00:00 PM Scheduled Provider: Location:[facility] Appointment Type: Medicare Wellness Subsequent Future Scheduled TestsLipid Panel 06/02/24MA Mamm Screen w/CAD if perf and 3D Jt 12/16/23 [facility] Evaluation + Plan note Future Appointments Appointment Date:12/18/2024 01:00:00 PM Scheduled Provider: Location:[facility] Appointment Type: Medicare Wellness Subsequent Future Scheduled TestsLipid Panel 25US PVR Lower EXT Complete Bilat 08/31/24MA Mamm Screen w/CAD if perf and 3D Jt 12/16/23 [facility] Evaluation + Plan note Future Appointments Appointment Date:12/18/2024 01:00:00 PM Scheduled Provider: Location:[facility] Appointment Type:FM Medicare Wellness Subsequent Future Scheduled TestsLipid Panel 25MA Mamm Screen w/CAD if perf and 3D Jt 12/16/23 [facility] Evaluation note No assessment inform ation [facility] Work Phone: Evaluation note Diagnosis Traumatic closed displaced fracture of right shoulder with anterior dislocation with routine healing, subsequent encounter- Primary documented in this encounter [facility] Diagnosis Type 2 diabetes mellitus with hyperglycemia, with long-term current use of insulin (CMS/[facility])- Primary Vitamin D deficiency Insulin long-term use (CMS/[facility]) Encounter for long-term (current) use of insulin Primary hypertension (CMS/HCC) Unspecified essential hypertension Hyperlipemia, mixed (CMS/[facility]) Mixed hyperlipidemia Encounter for dietary consultation Class [...] * Cardiovascular: there are no cardiovascular symptoms. GS-Vhxyiknwwnusshuf-Vcrlregx [facility] Work Phone: Hospital course Narrative No data available for this section [facility] No data available for this section [facility] Additional Instructions Follow-up with orthopedic doctor provided [facility] develop [facility] Work Phone: Progress note No data available for this section [facility] Summary Purpose Family History No Family [...] R.S. Note Recipients: Bree Ambrose MD - [id number] [] Discharge: Summary: Admission Date: .20-Oct-2018 10:48:00 Discharge Date: 22-Oct-2018 Attending Physician at Discharge: Jeffrey Crowell Admission Reason: Coughing up blood, syncope(1) Final Discharge Diagnoses: Gastrointestinal hemorrhage with hematemesis, hiatal hernia Procedures: EGD: no biopsies; no evidence of bleeding; hiatal hernia noted Condition at Discharge: Satisfactory Disposition at Discharge: .Home Vital Signs: T PRBPSpO2 [id number]/6396% Date/Time10/22 7: 7: 7: 7:227/20 7:22 Range(35.9C [...] dislocation with routine healing, subsequent encounter Procedures [place] OFFICE/OUTPATIENT [facility] 60 MINUTES Michael Villa, DO [address] [place] [address] [facility] Physical Therapy [address] [facility], [address] Referral ID Status Reason Start Date Expiration Date Visits Requested Visits Authorized [id number] Authorized Specialty Services Required 05/12/2023 11/08/2023 1 1 Additional Source Comments INFORMATION SOURCE (unrecogn ized section and content) DATE CREATED AUTHOR 09/28/2017 Rizwana godfrey DATE CREATED AUTHOR AUTHOR'S ORGANIZ ATION 06/07/2018 [facility] DATE CREATED AUTHOR AUTHOR'S ORGANIZ ATION 11/01/2018 [facility] DATE CREATED AUTHOR AUTHOR'S ORGANIZ ATION 12/14/2020 [facility] DATE CREATED AUTHOR AUTHOR'S ORGANIZ ATION 01/04/2022 [facility] DATE CREATED AUTHOR AUTHOR'S ORGANIZ ATION 01/08/2022 [facility] DATE CREATED AUTHOR AUTHOR'S ORGANIZ ATION 06/05/2022 [facility] DATE CREATED AUTHOR AUTHOR'S ORGANIZ ATION 09/01/2023 Leyva Villalba [facility] DATE CREATED AUTHOR AUTHOR'S ORGANIZ ATION 12/25/2023 Leyva Nadir [facility] DATE CREATED AUTHOR AUTHOR'S ORGANIZ ATION 04/08/2024 Leyva Villalba [facility] DATE CREATED AUTHOR AUTHOR'S ORGANIZ ATION 04/14/2024 Leyva Villalba [facility] DATE CREATED AUTHOR AUTHOR'S ORGANIZ ATION 06/05/2024 [facility] DATE CREATED AUTHOR AUTHOR'S ORGANIZ ATION 09/03/2024 Leyva Nadir [facility] DATE CREATED AUTHOR AUTHOR'S ORGANIZ ATION 09/22/2024 [facility] DATE CREATED AUTHOR AUTHOR'S ORGANIZ ATION 10/19/2024 [facility] DATE CREATED AUTHOR AUTHOR'S ORGANIZ ATION 11/11/2024 Leyva Villalba [facility] DATE CREATED AUTHOR AUTHOR'S ORGANIZ ATION 11/21/2024 [facility] EPIC Patient Care team informatio [...] Arley Keller MD Primary Care Provider Active Belt Loop Maker Relationship Specialty Start Date End Date Arley Keller MD [address] [place] [address] PCP - General Family Medicine 03/02/23 Belt Loop Maker Relationship Specialty Start Date End Date Arley Keller MD [address] [place] [address] PCP - General Family Medicine 03/02/23 Team [...] May 09, 2024 End: May 09, 2024 Belt Loop Maker Relationship Specialty Start Date End Date Arley Keller MD [address] [place], [place] [phone] PCP - General Family Medicine 03/02/23 Belt Loop Maker Relationship Specialty Start Date End Date Arley Keller MD [address] [place], [place] [phone] PCP - General Family Medicine 03/02/23 Belt Loop Maker Relationship Specialty Start Date End Date Arley Keller MD [address] [place] [id number] PCP - General Family Medicine 03/02/23 Belt Loop Maker Relationship Specialty Start Date End Date Arley Keller MD [address] [place] [id number] PCP - General [facility] 03/02/23 Belt Loop Maker Relationship Specialty Start Date End Date Arley Keller MD [address] [place] [address] PCP - [facility] 03/02/23 Belt Loop Maker Relationship Specialty Start Date End Date Arley Keller MD [address] [place], [place] [phone] PCP - [facility] 03/02/23 Belt Loop Maker Relationship Specialty Start Date End Date Arley Keller MD [address] [place] [address] PCP - [facility] 03/02/23 Belt Loop Maker Relationship Specialty Start Date End Date Arley Keller MD [address] [place] [address] PCP - [facility] 03/02/23 Belt Loop Maker Relationship Specialty Start Date End Date Arley Keller MD [address] [place], [place] [phone] PCP - General [facility] 03/02/23 Goals (unrecognized section and content) Goals [...] BE BASED ON THE PRIMARY CLINICAL RECORDS. [facility] [employer] [facility]. provides no warranty or guarantee of the accuracy or completeness of information in this document.
--- NOTE | 2024-11-21 09:49 | XR_ITS ---
The [address] [address] Patient Name: LJ DOLL MRN: [id number] date: 1955 Sex: F Assigned Patient Location: LAB Current Patient Location: LAB Accession/Order Number: [id number] Exam Date: 11/21/2024 12:04 Report Date: 11/21/2024 12:10 At the request of: KARI LANCASTER NP Procedure: XR wrist EUGENIO min 3V 3 views both wrists COMPARISON: 02/07/2019 HISTORY: Bilateral hand and wrist pain. History of rheumatoid arthritis Moderate moderate bilateral first carpometacarpal degenerative changes. Moderate right STT arthritis. Chronic changes of the radial styloid. Mild subchondral cystic changes consistent with rheumatoid arthritis. No acute bony erosive findings. Mild soft tissue prominence. No soft tissue calcification. XR/XR wrist EUGENIO min 3V IMPRESSION: Bilateral moderate degenerative changes of the wrist. Mild progression. Impression dictated by: Cleveland Justice M.D. 11/21/2024 12:10 PM Dictation Location: [employer] Electronically authenticated by: [id number] Y Date: 11/21/2024 12:10
--- NOTE | 2024-11-21 09:49 | XR_ITS ---
The [place] [id number] Patient Name: LJ DOLL MRN: [id number] date: 1955 Sex: F Assigned Patient Location: LAB Current Patient Location: LAB Accession/Order Number: [id number] Exam Date: 11/21/2024 11:59 Report Date: 11/21/2024 12:04 At the request of: KARI LANCASTER NP Procedure: XR hand EUGENIO min 3v 3 views both hands COMPARISON: 04/20/2020 HISTORY: Bilateral hand and wrist pain. History of rheumatoid arthritis. There is a moderate degenerative changes of the first carpometacarpal joints bilaterally. Mild interphalangeal degenerative changes. No new bony erosive changes. Alignment stable. Soft tissues unremarkable. XR/XR hand EUGENIO min 3v IMPRESSION: Similar moderate degenerative changes of the hands. Impression dictated by: Cleveland Justice M.D. 11/21/2024 12:04 PM Dictation Location: [employer] Electronically authenticated by: [id number] Y Date: 11/21/2024 12:04
[2024-11-21 10:20] LABS: Hematocrit 36.4 % (36.0-48.0); Hemoglobin 11.7 g/dL (12.0-16.0); Immature Granulocytes Abs Auto 0.01 10^3/uL (0.00-0.03); Immature Granulocytes Pct Auto 0.1 % (0.0-0.5); Lymphocytes Absolute Auto 2.6 10^3/uL (1.2-3.8); Mean Corpuscular HGB Conc 32.1 g/dL (29.9-35.2); Mean Corpuscular Hemoglobin 28.7 pg (26.7-34.0); Mean Corpuscular Volume 89.2 fL (81.0-99.0); Platelet Count 242 10^3/uL (150-450); Red Blood Count 4.08 10^6/uL (4.20-5.40); White Blood Count 7.4 10^3/uL (4.0-11.0)
[2024-11-21 12:21] LABS: Albumin Globulin Ratio 0.9; Albumin Level 3.6 g/dL (3.4-5.0); Alkaline Phosphatase 106 U/L (46-116); Anion Gap 13.3; Aspartate Amino Transferase 28 U/L (15-37); Blood Urea Nitrogen 20.0 mg/dL (7.0-18.0); Calcium 8.9 mg/dL (8.5-10.1); Carbon Dioxide 26.1 mmol/L (21.0-32.0); Chloride 106 mmol/L (98-107); Estimated GFR (African America >60 (>=60 mL/min/1.73m^2); Estimated GFR (Non-African Ame 51 (>=60 mL/min/1.73m^2); Globulin 4.1 g/dL; Glucose 158 mg/dL (74-106); Potassium 4.4 mmol/L (3.5-5.1); Sodium 141 mmol/L (136-145); Total Protein 7.7 g/dL (6.4-8.2)
[2024-11-21 13:12] LABS: Alanine Aminotransferase 50 U/L (14-59)
== END 2024-11-21 09:12 | disposition home or self-care (01) ==
PROVIDERS: PCP Family Medicine; Visit Provider Nurse Practitioner Family
DX: M06.09 Rheumatoid arthritis without rheumatoid factor, multiple sites (principal); Z79.899 Other long term (current) drug therapy; M19.032 Primary osteoarthritis, left wrist; M19.031 Primary osteoarthritis, right wrist; M19.042 Primary osteoarthritis, left hand; M19.041 Primary osteoarthritis, right hand; I13.10 Hypertensive heart and chronic kidney disease without heart failure, with stage 1 through stage 4 chronic kidney disease, or unspecified chronic kidney disease; E11.21 Type 2 diabetes mellitus with diabetic nephropathy; Z79.1 Long term (current) use of non-steroidal anti-inflammatories (NSAID)
CPT/HCPCS: 36415; 73110; 73130; 80053; 82570; 83735; 84100; 84156; 85025; 85652; 86140

== ENCOUNTER 2024-11-21 09:11 | Outpatient (OUT) | payer MEDICARE, SELFPAY ==
--- OUTSIDE RECORDS SUMMARY | 2023-03-03 10:14 | XMS_ITS | Continuity of Care Document ---
[facility] Address [address] [place] [address] [place] [address] Phone Care Team Providers Care Guest Experience Manager Name Role Phone Nilda Edward Unavailable Unavailable Allergies, Adverse Reactions, Alerts Substance Reaction Status Criticality Penicillins Diarrhea Active No Information Medications Medication Instructions Dosage Effective Dates (start - stop) Status Comments amlodipine 10 mg tablet take 1 tablet by oral route every day 10 MG - Active losartan 100 mg tablet take 1 tablet by oral route every day 100 MG - Active Vitamin B-12 5,000 mcg sublingual tablet - Active B COMPLEX WITH B-12 (unknown strength) Not Available - Active VITAMIN C (unknown strength) spray 1 capsule by oral route every day Not Available - Active [id number]-TLHPZGAZE-M INC (unknown strength) Not Available - Active Vitamin D3 125 mcg (5,000 unit) tablet take 1 tablet by oral route every day 1 tablet - Active OMEGA-3 (unknown strength) take 1 capsule by oral route every day Not Available - Active K2-45 (unknown strength) Not Available - Active Co Q-10 100 mg capsule take 1 capsule by oral route every day 1 capsule - Active glucosamine sulfate 750 mg tablet - Active CURCUMIN PHYTOSOME (unknown strength) Not Available - Active Procedures Procedure Date OFFICE/OUTPATIENT VISIT, NEW Advance Directives Directive Yes / No Effective Date File Name No Information Encounters Encounter Description Practice Location Reason(s) For Visit Diagnoses Date Provider Providers [facility] [address] [place] [address], [place], [id number], tel:[phone] [facility] [place] No Information Wagner Munguia. [address] [place] [address], [place], [id number] , [place]. tel:[phone] OFFICE/OUTPAT IENT VISIT, [facility], [address] [facility], [place], [place], [id number], [place] tel:[phone] [facility] [place] [address] establish care (chief complaint) Other specified disorders of nose and nasal sinuses 3 Pastor Hernadez. [address] [place] [address], [place], [place], [id number] , [place]. tel:[phone] Family History Family Member Type Diagnosis Age At Onset Problem Family history of Hyperchole sterolemia Problem Family history of Cardiovasc ular disease Problem Family history of Diabetes m ellitus Problem Family history of Hypertensi on Immunizations Vaccine Date Status Comments Pneumococcal conjugate PCV20 administered Source: Other Registry SARS-COV-2 (COVID-19) vaccin e, mRNA, spike protein, LNP, preservative free, 100 mcg/0.5mL dose (Moderna) administered Sourc e: Other Registry TDaP administered Source: Other R egistry SARS-COV-2 (COVID-19) vaccin e, mRNA, spike protein, LNP, preservative free, 100 mcg/0.5mL dose (Moderna) administered Sourc e: Other Registry SARS-COV-2 (COVID-19) vaccin e, mRNA, spike protein, LNP, preservative free, 100 mcg/0.5mL dose (Moderna) administered Sourc e: Other Registry Payers Payer name Insurance type Covered green party ID Authoriza tifabian(s) [employer] [place] [id number] Social History Type Description Quantity Date Captured Comments Sex Female Smoking Status No Information Chief Complaint And Reason For Visit No Information Reason For Referral Reason For Referral No Information Plan Of Treatment Date Type Action Status Goal Tdap due Goal DEXA scan. Due on 3 due Goal Colonoscopy. Due on 023 due Goal Lipid panel. Due on 023 due Goal Sigmoidoscopy. Due on due Goal FIT. Due on due Goal Pneumococcal vaccine due Goal FOBT. Due on due Goal Hepatitis C screening. Due o n due Goal FIT-DNA. Due on due Goal Depression screening. Due on due Goal CT-Colonography. Due on due Goal Zoster vaccine (). Due on due Goal Influenza vaccine. Due on No due Goal Mammogram. Due on due Goal Unhealthy drug use screening . Due on due Goal Tdap. Due on due Goal Hepatitis C screening. Due o n due Goal Lipid panel. Due on 023 due Goal Sigmoidoscopy. Due on due Goal Zoster vaccine (). Due on due Goal Colonoscopy. Due on 023 due Goal Influenza vaccine. Due on No due Goal Mammogram. Due on due Goal FIT. Due on due Goal Depression screening. Due on due Goal DEXA scan. Due on due Goal Td vaccine. Due on due Goal CT-Colonography. Due on due Goal FOBT. Due on due Goal Unhealthy drug use screening . Due on due Goal Pneumococcal vaccine. Due on due Goal FIT-DNA. Due on due History Of Present Illness Encounter Date Complaint History Of Prese nt Illness establish care pt is here to es tammie care67 yo F [employer] c/o burning and scabbing to the inner distal R nares x [address] Gaviota Summers Functional Status Date Functional Assessmen t No Information Instructions Date Instruction Additional Infor barbara saline spray for dry nesswarm compress to area Related to Other specified disorders of nose and nasal sinuses Assessments Type Assessment Date No Information Patient Care Teams Name Effective Dates (start - stop) Status Members No Information
--- OUTSIDE RECORDS SUMMARY | 2024-11-20 11:00 | XMS_ITS | Encounter Summary ---
Author Organization [facility] Address [address] [place] [address] Care Team Providers Care Fishing Rod Marker Name Role Phone Arley Keller MD Primary Care Provider [phone] Reason for Visit * Reason Comments Suture / Staple Removal Encounter Details Date Type Department Care Team (Late st Contact Info) Description 11/20/2024 11:00 AM EDT Office Visit [facility] [address] [facility] [address] [place] [phone] Alicia Foley MD [address] [facility] [address] [place] [address] Encounter for removal of sutures (Primary Dx) Social History Tobacco Use Types Packs/Day Years Used Date Smoking Tobacco: Former Cigarettes 0.5 15 0 06/03/1964 - 06/04/1979 Smokeless Tobacco: Never Alcohol Use Standard Drinks/Week Comments Never 0 (1 standard drink = 0.6 oz pur e alcohol) Caffeine: soda Comments Unknown Sex and Gender Information Value Date Recorded Sex Assigned at Female 04/17/2023 11:54 AM EST Legal Sex Female 6:34 PM EDT Gender Identity Female 04/17/2023 11:54 AM EST Sexual Orientation Straight 04/17/2023 11 :54 AM EST documented as of this encounter Progress Notes * Alicia Foley MD - 11/20/2024 11:00 AM EDT Images from the original note were not included. Suture Removal Patient here for suture removal: No complaints of redness, drainage or swelling at site, compliant with wound care. Location: Medial Chest Procedure Performed: Excision Date of Procedure: 11/06/24 Medications: none All pertinent medical history, medications, and allergies were reviewed. General Exam: alert, oriented to person, place, and time, normal affect, well appearing Unaccompanied A focused exam completed based on patient reported problems, see below: Skin Exam 1. ENCOUNTER FOR REMOVAL OF SUTURES Medial Chest Sutures are intact, Skin edges are well-approximated, Mild erythema along incision line, No drainage or edema noted Suture Removal: Procedure: Sutures were removed without difficulty. Tincture of Benzoin was applied around site in preparation of steri-strips. Steri-strips were applied Post-Procedure instructions: Instructed to discontinue wound care., Instructed to keep steri stripson for at least 5-7 days., Pathology results discussed. Next Visit: as scheduled documented in this encounter Plan of Treatment Upcoming Encounters Date Type Department Care Team (Late st Contact Info) Description 11/24/2024 11:15 AM EDT Office Visit [facility] [address] [place] [phone] Shelton Díaz DPM [address] [place] [address] 11/30/2024 10:20 AM EDT Office Visit [facility] [address] [place] [phone] Bobbi Barker MD [address] [place] [address] 09/27/2025 10:55 AM EDT Office Visit [facility] [address] [place] [phone] Mohini Thrasher, [employer] GU[employer]SHORE DIVER [address] [place] [address] documented as of this encounter Visit Diagnoses Diagnosis Encounter for removal of sutures- Primary documented in this encounter Care Teams Fishing Rod Marker Relationship Specialty Start Date End Date Arley Keller MD [address] [phone] PCP - General Family Medicine 03/02/23 documented as of this encounter
--- OUTSIDE RECORDS SUMMARY | 2024-11-21 09:14 | XMS_ITS | Encounter Summary ---
Author Organization [facility] Address [address] [place] [address] Care Team Providers Care Casey Saw Operator Name Role Phone Arley Keller MD Primary Care Provider [phone] Encounter Details Date Type Department Care Team (Latest Contact Info) Description 10/04/2024 Results Follow-Up [facility] [address] [place] [address] Alicia Foley MD [address] [facility] [address] [place] [address] Dermatopathology exam Social History Tobacco Use Types Packs/Day Years [...] AM EST documented as of this encounter Plan of Treatment Upcoming Encounters Date Type Department Care Team (Late st Contact Info) Description 11/24/2024 11:15 AM EDT Office Visit [facility] [address] [place] [address] Kubitz, Shelton R, DPM [address] [place] [address] 11/30/2024 10:20 AM EDT Office Visit [facility] [place] [facility] [address] [place] [id number] Bobbi Barker MD [address] [place] [address] 09/27/2025 10:55 AM EDT Office Visit [facility] [address] [place] [address] Mohini Thrasher APRN-PRE PRESS OPERATOR [address] [place] [address] documented as of this encounter Visit Diagnoses Not on filedocumented in this encounter Care Teams Casey Saw Operator Relationship Specialty Start Date End Date Arley Keller MD [address] [place] [address] PCP - General Family Medicine 03/02/23 documented as of this encounter
--- OUTSIDE RECORDS SUMMARY | 2024-11-21 09:14 | XMS_ITS | Clinical Summary ---
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 Name Role Phone Tiff Ambrose MD Primary Care Provider Social History Tobacco Use Types Packs/Day Years Used Date Smoking Tobacco: Never Assessed Comments Unknown Sex and Gender Information Value Date Recorded Sex Assigned at Not on file Legal Sex Female 2:21 PM EST Gender Identity Not on file Sexual Orientation Not on file Last Filed Vital Signs Vital Sign Reading Time Taken Comments Blood Pressure - - Pulse - - Temperature - - Respiratory Rate - - Oxygen Saturation - - Inhaled Oxygen Concentration - - Weight 97.5 kg (214 lb 15.2 oz) 10/05/2018 7:24 AM EDT Height 160 cm (5' 2.99 ) 10/05/2018 7:24 AM EDT Body Mass Index 38.09 10/05/2018 7:24 AM EDT Plan of Treatment Health Maintenance Due Date Last Done Comments CT Colonography 1955 FIT-DNA (Cologuard) 1955 FIT 1955 Sigmoidoscopy 1955 Yearly Adult Physical 1955 MMR Vaccines (1 of 1 - Standard series) 1954 Hepatitis C Screening 1971 Hepatitis A Vaccines (1 of 2 - Risk 2-dose series) 1972 DTaP/Tdap/Td Vaccines (1 - Tdap) 1975 Mammogram 1993 Pneumococcal Vaccine (1 of 1 - PCV) 2003 Zoster Vaccines (1 of 2) 2003 Hepatitis B Vaccines (1 of 3 - Risk 3-dose series) 2013 RSV High Risk: (Elderly (60+ ) or Population) (1 - Risk 60-74 years 1-dose series) 2013 Bone Density Scan 2018 COVID-19 Vaccine (1 - 2023-2 5 season) 2023 Influenza Vaccine (#1) 2024 Lipid Panel 12/02/2026 12/02/2021 Colonoscopy 10/05/2028 10/05/2018 Colorectal Cancer Screening 10/05/2028 Irritable Bowel Syndrome Discontinued 019, 10/05/2018, 10/05/2018 HIB Vaccines Aged Out No longer eligi ble based on patient's age to complete this topic HPV Vaccines Aged Out No longer eligi ble based on patient's age to complete this topic IPV Vaccines Aged Out No longer eligi ble based on patient's age to complete this topic Meningococcal Vaccine Aged Out No [facility] eligible based on patient's age to complete this topic Rotavirus Vaccines Aged Out No longer eligible based on patient's age to complete this topic Procedures Procedure Name Priority Date/Time Associated Diagnosis Comments LIPID PANEL Routine 12/02/2021 9:45 AM EDT EGD Routine 10/22/2018 8:18 AM EDT COLONOSCOPY Routine 10/05/2018 8:32 AM EDT from Last 3 Months or Most Recently Relevant to Health Maintenance Results * Lipid Panel (12/02/2021 9:45 AM EDT) [facility] Signature Cholesterol 171 0 - 199 mg/dL [facility] Comment: . AGE DESIRABLE BORDERLINE HIGH HIGH [...] be performed immediately prior to Metamizole dosing. HDL 73.0 mg/dL [facility] Comment: . AGE VERY LOW LOW NORMAL HIGH 0-19 Y < 35 < 40 40-45 ---- 20-24 Y ---- < 40 >45 ---- >24 Y ---- < 40 40-60 >60 . Cholesterol/HDL Ratio 2.3 [facility] Comment: REF VALUES DESIRABLE < 3.4 HIGH RISK > 5.0 LDL 78 0 - 99 mg/dL [facility] Comment: . NEAR BORD AGE DESIRABLE OPTIMAL HIGH HIGH VERY HIGH 0-19 Y 0 - 109 --- 110-129 >/= 130 ---- 20-24 Y 0 - 119 --- 120-159 >/= 160 ---- >24 Y 0 - 99 100-129 130-159 160-189 >/=190 . VLDL 20 0 - 40 mg/dL [facility] Triglycerides 101 0 - 149 mg/dL [facility] Comment: . AGE DESIRABLE BORDERLINE HIGH HIGH [...] be performed immediately prior to Metamizole dosing. 12/02/2021 9:45 AM EDT 12/02/2021 11:07 AM EDT us Bobbi Barker MD LAB BLOOD ORDERABLES Final Re sult [facility] [address] [place] [address], [place] [id number] * Esophagogastroduodenoscopy (EGD) (10/22/2018 8:18 AM EDT) Anatomical Region Laterality Modality Endoscopy 10/22/2018 8:18 AM EDT Narrative 10/22/2018 8:18 AM EDT Patient Name: Karen Grewal Procedure Date: 10/22/2018 8:18 AM Date of : 1955 Admit Type: Inpatient Site: [facility] 1 Ethnicity: Not or Race: White Attending MD: Juanita Pickett MD, [id number] Procedure: Upper GI endoscopy Indications: Iron deficiency anemia, Hematemesis Patient Profile: This is a 63 year old female. Refer to note in patient chart for documentation of history and physical. Providers: Juanita Pickett MD (Doctor), Aditi Leary RN (Nurse), Kathy Nobles, Wealth Management Director Referring: Medicines: Midazolam 3 mg IV Complications: No immediate complications. Procedure: Pre-Anesthesia Assessment: - Prior to the procedure, a History and Physical was performed, and patient medications and allergies were reviewed. The patient is competent. The risks and benefits of the procedure and the sedation options and risks were discussed with the patient. All questions were answered and informed consent was obtained. Patient identification and proposed procedure were verified by the physician, the nurse and the studio technician video operator in the pre-procedure area in the endoscopy suite. Mental Status Examination: alert and oriented. Airway Examination: normal oropharyngeal airway and neck mobility. Respiratory Examination: clear to auscultation. CV Examination: normal. Prophylactic Antibiotics: The patient does not require prophylactic antibiotics. Prior Anticoagulants: The patient has taken no previous anticoagulant or antiplatelet agents. ASA Grade Assessment: III - A patient with severe systemic disease. After reviewing the risks and benefits, the patient was deemed in satisfactory condition to undergo the procedure. The anesthesia plan was to use moderate sedation / analgesia (conscious sedation). Immediately prior to administration of medications, the patient was re-assessed for adequacy to receive sedatives. The heart rate, respiratory rate, oxygen saturations, blood pressure, adequacy of pulmonary ventilation, and response to care were monitored throughout the procedure. The physical status of the patient was re-assessed after the procedure. After obtaining informed consent, the endoscope was passed under direct vision. Throughout the procedure, the patient's blood pressure, pulse, and oxygen saturations were monitored continuously. The Endoscope was introduced through the mouth, and advanced to the second part of duodenum. The upper GI endoscopy was accomplished without difficulty. The patient tolerated the procedure well. Findings: The Z-line was regular and was found 32 cm from the incisors. The examined esophagus was normal. A medium-sized hiatal hernia was present. A few small semi-sessile polyps with no stigmata of recent bleeding were found in the gastric fundus and in the gastric body. No other significant abnormalities were identified in a careful examination of the stomach. The examined duodenum was normal. Moderate Sedation: Moderate (conscious) sedation was administered by the endoscopy nurse and supervised by the endoscopist. The following parameters were monitored: oxygen saturation, heart rate, blood pressure, and response to care. Estimated Blood Loss: Estimated blood loss: none. Impression: - Z-line regular, 32 cm from the incisors. - Normal esophagus. - Medium-sized hiatal hernia. - A few gastric polyps. - Normal examined duodenum. - No specimens collected. Recommendation: - Patient has a contact number available for emergencies. The signs and symptoms of potential delayed complications were discussed with the patient. Return to normal activities tomorrow. Written discharge instructions were provided to the patient. - Resume previous diet. - Continue present medications. - [facility]. - no need for further GI w/u - Resume regular diet today. Procedure Code(s): --- Professional --- 24744, Esophagogastroduodenoscopy, flexible, transoral; diagnostic, including collection of specimen(s) by brushing or washing, when performed (separate procedure) Diagnosis Code(s): --- Professional --- K44.9, Diaphragmatic hernia without obstruction or gangrene K31.7, Polyp of stomach and duodenum D50.9, Iron deficiency anemia, unspecified K92.0, Hematemesis CPT copyright 2021 [employer]. All rights reserved. The codes documented in this report are preliminary and upon crawler dragline operator review may be revised to meet current compliance requirements. MD Juanita Morris MD 10/25/2018 1:49:22 PM This report has been signed electronically. Number of Addenda: 0 Note Initiated On: 10/22/2018 8:18 AM Procedure Note Juanita Pickett MD - 09/08/2024 Patient Name: Karen Grewal Procedure Date: 10/22/2018 8:18 AM Date of : 1955 Admit Type: Inpatient Site: [place] [address] Ethnicity: Not or Race: White Attending MD: Juanita Pickett MD, [id number] Procedure: Upper GI endoscopy Indications: Iron deficiency anemia, Hematemesis Patient Profile: This is a 63 year old female. Refer to note inpatient chart for documentation of history and physical. Providers: Juanita Pickett MD (Doctor), Aditi Leary RN (Nurse), Kathy Nobles, Wealth Management Director Referring: Medicines: Midazolam 3 mg IV Complications: No immediate complications. Procedure: Pre-Anesthesia Assessment: - Prior to the procedure, a History and Physicalwas performed, and patient medications and allergieswere reviewed. The patient is competent. The risks and benefits of the procedure and the sedation optionsand risks were discussed with the patient. Allquestions were answered and informed consent was obtained. Patient identification and proposed procedure were verified by the physician, the nurse and the studio technician video operator in the pre-procedure area in theendoscopy suite. Mental Status Examination: alert andoriented. Airway Examination: normal oropharyngeal airway and neck mobility. Respiratory Examination: clear to auscultation. CV Examination: normal. Prophylactic Antibiotics: The patient does not requireprophylactic antibiotics. Prior Anticoagulants: The patient has taken no previous anticoagulant or antiplatelet agents. ASA Grade Assessment: III - A patient with severe systemic disease. After reviewing the risksand benefits, the patient was deemed in satisfactory condition to undergo the procedure. The anesthesia plan was to use moderate sedation / analgesia (conscious sedation). Immediately prior to administration of medications, the patient was re-assessed for adequacy to receive sedatives. The heart rate, respiratory rate, oxygen saturations, blood pressure, adequacy of pulmonary ventilation,and response to care were monitored throughout the procedure. The physical status of the patient was re-assessed after the procedure. After obtaining informed consent, the endoscope was passed under direct vision. Throughout theprocedure, the patient's blood pressure, pulse, and oxygen saturations were monitored continuously. TheEndoscope was introduced through the mouth, and advanced tothe second part of duodenum. The upper GI endoscopy was accomplished without difficulty. The patienttolerated the procedure well. Findings: The Z-line was regular and was found 32 cm from the incisors. The examined esophagus was normal. A medium-sized hiatal hernia was present. A few small semi-sessile polyps with no stigmata of recent bleedingwere found in the gastric fundus and in the gastric body. No other significant abnormalities were identified in a careful examination of the stomach. The examined duodenum was normal. Moderate Sedation: Moderate (conscious) sedation was administered by the endoscopy nurse and supervised by the endoscopist. The following parameters were monitored: oxygen saturation, heart rate, blood pressure, andresponse to care. Estimated Blood Loss: Estimated blood loss: none. Impression: - Z-line regular, 32 cm from the incisors. - Normal esophagus. - Medium-sized hiatal hernia. - A few gastric polyps. - Normal examined duodenum. - No specimens collected. Recommendation: - Patient has a contact number available for emergencies. The signs and symptoms of potential delayed complications were discussed with thepatient. Return to normal activities tomorrow. Written discharge instructions were provided to thepatient. - Resume previous diet. - Continue present medications. - [facility] - no need for further GI w/u - Resume regular diet today. Procedure Code(s): --- Professional --- 88604, Esophagogastroduodenoscopy, flexible, transoral; diagnostic, including collection of specimen(s) by brushing or washing, when performed (separate procedure) Diagnosis Code(s): --- Professional --- K44.9, Diaphragmatic hernia without obstruction or gangrene K31.7, Polyp of stomach and duodenum D50.9, Iron deficiency anemia, unspecified K92.0, Hematemesis CPT copyright 2021 [employer]. All rights reserved. The codes documented in this report are preliminary and upon crawler dragline operator reviewmay be revised to meet current compliance requirements. MD Juanita Morris MD 10/25/2018 1:49:22 PM This report has been signed electronically. Number of Addenda: 0 Note Initiated On: 10/22/2018 8:18 AM us Provation Conversion ENDOSCOPY PROCEDURE ORDERAB LES Edited Result - Final * Colonoscopy (10/05/2018 8:32 AM EDT) Anatomical Region Laterality Modality Endoscopy 10/05/2018 8:32 AM EDT Narrative 04/21/2022 7:01 PM EST Patient Name: Karen Grewal Procedure Date: 10/05/2018 8:32 AM Date of : 1955 Site: [facility] 1 Ethnicity: Not or Race: White Attending MD: Kenroy Low MD, [id number] Procedure: Colonoscopy Indications: Screening for colorectal malignant neoplasm Patient Profile: This is a 63 year old female. Providers: Kenroy Low MD (Doctor) Referring MD: Kenroy Low MD Medicines: Monitored Anesthesia Care Complications: No immediate complications. Procedure: Pre-Anesthesia Assessment: - Prior to the procedure, a History and Physical was performed, and patient medications and allergies were reviewed. The patient is competent. The risks and benefits of the procedure and the sedation options and risks were discussed with the patient. All questions were answered and informed consent was obtained. Patient identification and proposed procedure were verified by the physician and the nurse in the procedure room. Mental Status Examination: alert and oriented. CV Examination: normal. Prophylactic Antibiotics: The patient does not require prophylactic antibiotics. Prior Anticoagulants: The patient has taken no previous anticoagulant or antiplatelet agents. ASA Grade Assessment: II - A patient with mild systemic disease. After reviewing the risks and benefits, the patient was deemed in satisfactory condition to undergo the procedure. The anesthesia plan was to use moderate sedation / analgesia (conscious sedation). Immediately prior to administration of medications, the patient was re-assessed for adequacy to receive sedatives. The heart rate, respiratory rate, oxygen saturations, blood pressure, adequacy of pulmonary ventilation, and response to care were monitored throughout the procedure. The physical status of the patient was re-assessed after the procedure. - Prior to the procedure, a History and Physical was performed, and patient medications and allergies were reviewed. The patient is competent. The risks and benefits of the procedure and the sedation options and risks were discussed with the patient. All questions were answered and informed consent was obtained. Patient identification and proposed procedure were verified by the physician in the pre-procedure area. Mental Status Examination: alert and oriented. Airway Examination: normal oropharyngeal airway and neck mobility. Respiratory Examination: clear to auscultation. CV Examination: normal. Prophylactic Antibiotics: The patient does not require prophylactic antibiotics. Prior Anticoagulants: The patient has taken no previous anticoagulant or antiplatelet agents. ASA Grade Assessment: II - A patient with mild systemic disease. After reviewing the risks and benefits, the patient was deemed in satisfactory condition to undergo the procedure. The anesthesia plan was to use monitored anesthesia care (MAC). Immediately prior to administration of medications, the patient was re-assessed for adequacy to receive sedatives. The heart rate, respiratory rate, oxygen saturations, blood pressure, adequacy of pulmonary ventilation, and response to care were monitored throughout the procedure. The physical status of the patient was re-assessed after the procedure. After I obtained informed consent, the scope was passed under direct vision. Throughout the procedure, the patient's blood pressure, pulse, and oxygen saturations were monitored continuously. The Colonoscope was introduced through the anus and advanced to the cecum, identified by appendiceal orifice and ileocecal valve. The ileocecal valve, appendiceal orifice, and rectum were photographed. The quality of the bowel preparation was evaluated using the BBPS ([place] Bowel Preparation Scale) with scores of: Right Colon = 2 (minor amount of residual staining, small fragments of stool and/or opaque liquid, but mucosa seen well), Transverse Colon = 2 (minor amount of residual staining, small fragments of stool and/or opaque liquid, but mucosa seen well) and Left Colon = 1 (portion of mucosa seen, but other areas not well seen due to staining, residual stool and/or opaque liquid). The total BBPS score equals 5. The quality of the bowel preparation was fair. Findings: The colon (entire examined portion) appeared normal. Moderate Sedation: The administration of moderate sedation was initiated. Estimated Blood Loss: Estimated blood loss: none. Impression: - Preparation of the colon was fair. - The entire examined colon is normal. - No specimens collected. Recommendation: - Discharge patient to home (ambulatory). - Return to my office as previously scheduled. - Repeat colonoscopy in 4 years for surveillance. Procedure Code(s): --- Professional --- 24148, Colonoscopy, flexible; diagnostic, including collection of specimen(s) by brushing or washing, when performed (separate procedure) Diagnosis Code(s): --- Professional --- Z12.11, Encounter for screening for malignant neoplasm of colon CPT copyright 2021 [employer]. All rights reserved. The codes documented in this report are preliminary and upon crawler dragline operator review may be revised to meet current compliance requirements. Attending Participation: I personally performed the entire procedure. Kenroy Low MD 10/05/2018 9:16:45 AM This report has been signed electronically. Number of Addenda: 0 Note Initiated On: 10/05/2018 8:32 AM Scope Withdrawal Time 0 hours 3 minutes 5 seconds Total Procedure Duration Time 0 hours 17 minutes 22 seconds Procedure Note Kenroy Low MD - 09/14/2024 Patient Name: Karen Grewal Procedure Date: 10/05/2018 8:32 AM Date of : 1955 Site: [facility] 1 Ethnicity: Not or Race: White Attending MD: Kenroy Low MD, [id number] Procedure: Colonoscopy Indications: Screening for colorectal malignant neoplasm Patient Profile: This is a 63 year old female. Providers: Kenroy Low MD (Doctor) Referring MD: Kenroy Low MD Medicines: Monitored Anesthesia Care Complications: No immediate complications. Procedure: Pre-Anesthesia Assessment: - Prior to the procedure, a History and Physicalwas performed, and patient medications and allergieswere reviewed. The patient is competent. The risks and benefits of the procedure and the sedation optionsand risks were discussed with the patient. Allquestions were answered and informed consent was obtained. Patient identification and proposed procedure were verified by the physician and the nurse in the procedure room. Mental Status Examination: alertand oriented. CV Examination: normal. Prophylactic Antibiotics: The patient does not requireprophylactic antibiotics. Prior Anticoagulants: The patient has taken no previous anticoagulant or antiplatelet agents. ASA Grade Assessment: II - A patient withmild systemic disease. After reviewing the risks and benefits, the patient was deemed in satisfactory condition to undergo the procedure. The anesthesia plan was to use moderate sedation / analgesia (conscious sedation). Immediately prior to administration of medications, the patient was re-assessed for adequacy to receive sedatives. The heart rate, respiratory rate, oxygen saturations, blood pressure, adequacy of pulmonary ventilation,and response to care were monitored throughout the procedure. The physical status of the patient was re-assessed after the procedure. - Prior to the procedure, a History and Physicalwas performed, and patient medications and allergieswere reviewed. The patient is competent. The risks and benefits of the procedure and the sedation optionsand risks were discussed with the patient. Allquestions were answered and informed consent was obtained. Patient identification and proposed procedure were verified by the physician in the pre-procedurearea. Mental Status Examination: alert and oriented.Airway Examination: normal oropharyngeal airway and neck mobility. Respiratory Examination: clear to auscultation. CV Examination: normal. Prophylactic Antibiotics: The patient does not requireprophylactic antibiotics. Prior Anticoagulants: The patient has taken no previous anticoagulant or antiplatelet agents. ASA Grade Assessment: II - A patient withmild systemic disease. After reviewing the risks and benefits, the patient was deemed in satisfactory condition to undergo the procedure. The anesthesia plan was to use monitored anesthesia care (MAC). Immediately prior to administration of medications, the patient was re-assessed for adequacy to receive sedatives. The heart rate, respiratory rate, oxygen saturations, blood pressure, adequacy of pulmonary ventilation, and response to care were monitored throughout the procedure. The physical status ofthe patient was re-assessed after the procedure. After I obtained informed consent, the scope was passed under direct vision. Throughout theprocedure, the patient's blood pressure, pulse, and oxygen saturations were monitored continuously. The Colonoscope was introduced through the anus and advanced to the cecum, identified by appendiceal orifice and ileocecal valve. The ileocecal valve, appendiceal orifice, and rectum were photographed.The quality of the bowel preparation was evaluatedusing the BBPS ([place] Bowel Preparation Scale) withscores of: Right Colon = 2 (minor amount of residual staining, small fragments of stool and/or opaque liquid, but mucosa seen well), Transverse Colon = 2 (minor amount of residual staining, small fragmentsof stool and/or opaque liquid, but mucosa seen well)and Left Colon = 1 (portion of mucosa seen, but other areas not well seen due to staining, residual stool and/or opaque liquid). The total BBPS score equals5. The quality of the bowel preparation was fair. Findings: The colon (entire examined portion) appeared normal. Moderate Sedation: The administration of moderate sedation was initiated. Estimated Blood Loss: Estimated blood loss: none. Impression: - Preparation of the colon was fair. - The entire examined colon is normal. - No specimens collected. Recommendation: - Discharge patient to home (ambulatory). - Return to my office as previously scheduled. - Repeat colonoscopy in 4 years for surveillance. Procedure Code(s): --- Professional --- 41510, Colonoscopy, flexible; diagnostic, including collection of specimen(s) by brushing or washing,when performed (separate procedure) Diagnosis Code(s): --- Professional --- Z12.11, Encounter for screening for malignantneoplasm of colon CPT copyright 2021 [employer]. All rights reserved. The codes documented in this report are preliminary and upon crawler dragline operator reviewmay be revised to meet current compliance requirements. Attending Participation: I personally performed the entire procedure. Kenroy Low MD 10/05/2018 9:16:45 AM This report has been signed electronically. 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
--- OUTSIDE RECORDS SUMMARY | 2024-11-21 09:14 | XMS_ITS | Clinical Summary ---
Author Organization [facility] Address [address] [place] [address] Care Team Providers Care Industrial Technologist Name Role Phone Arley Keller MD Primary Care Provider [phone] Allergies Active Allergy Reactions Criticality Noted Date Comments Adalimumab Hives 09/21/2022 Other Reaction(s): Hives Diclofenac 09/21/2022 Other Reaction(s): does not help Diphenhydramine 09/21/2022 Other reaction(s): VERY FOGGY BRAIN Other Reaction(s): brain fog, VERY FOGGY BRAIN Oxaprozin 09/21/2022 Other reaction(s): INEFFECTIVE Other Reaction(s): INEFFECTIVE Oxycodone-Acetaminophen Nausea And Vomiting Kknqvmu-Pll-Prm Reductase Inhibitors 09/28/2022 Medications amitriptyline (Elavil) 25 mg tablet Take 25 mg by mouth. 1 Active aspirin 81 mg EC tablet Take 81 mg by mouth. Active calcium carbonate EX (Tums Extra Strength) 300 mg (750 mg) chewable tablet Chew 500 mg. A ctive carvedilol (Coreg) 3.125 mg tablet Take 3.125 mg by mouth with breakfast and with evening meal. 1 Active celecoxib (CeleBREX) 200 mg capsule take 1 capsule (200MG) by ORAL route every day as needed Oral 1 Active cholecalciferol (Vitamin D-3) 25 MCG (1000 units) tablet Take 1,000 Units by mouth in the morning. Active etanercept (EnbreL) 50 mg/mL (1 mL) injection Inject 1 mL under the skin. Active exenatide (Byetta) 5 mcg/dose (250 mcg/mL) 1.2 mL injection Inject 1 each under the skin in the morning. Active furosemide (Lasix) 20 mg tablet Take 20 mg by mouth in the morning. 1 Active gabapentin (Neurontin) 100 mg capsule Take 200 mg by mouth twice a day. 1 Active hydroxychloroqu ine (Plaquenil) 200 mg tablet Take 200 mg by mouth in the morning. 1 Active insulin glargine (Lantus Solostar U-100 Insulin) 100 unit/mL (3 mL) pen Inject under the skin. 7 Active insulin glargine-yfgn 100 unit/mL (3 mL) insulin pen Inject under the skin. 2 Active lisinopriL-hydr ochlorothiazide 10-12.5 mg tablet Take 1 tablet by mouth in the morning. Active metFORMIN (Glucophage) 850 mg tablet Take 850 mg by mouth. Active pantoprazole (ProtoNix) 40 mg EC tablet Take 40 mg by mouth. 1 Active rosuvastatin (Crestor) 5 mg tablet Take 5 mg by mouth at bedtime. 1 Active semaglutide (Ozempic) 1 mg/dose (2 mg/1.5 mL) pen injector Inject 1 mg under the skin. 3 Active sertraline (Zoloft) 50 mg tablet Take 50 mg by mouth in the morning. 1 Active lisinopril 2.5 mg tablet Take 2.5 mg by mouth in the morning. Active Active Problems Problem Noted Date Diagnosed Date Anterior dislocation of shoulder 11/08/2023 Drug-induced immunodeficiency 11/08/2023 Overview (11/08/2023): added per 02/24/2023 query response. 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 added per OP CDI policy. Major depression in remission 11/08/2023 Overview (11/08/2023): added per 02/24/2023 query response. Morbid obesity 11/08/2023 Overview (11/08/2023): added per 02/24/2023 query response. Acquired equinus deformity of foot 06/17/2023 Callus 06/17/2023 Diabetic neuropathy 06/17/2023 Hammer toe 06/17/2023 Venous (peripheral) insufficiency 06/17/2023 Received influenza vaccination at hospital 05/03 Carotid occlusion, left 09/28/2022 Chronic kidney disease (CKD), stage IV (severe) 09/28/2022 Drooping eyelid 09/28/2022 H/O osteoporosis 09/28/2022 Hyperlipidemia 09/28/2022 Assessment & Plan (09/28/2022 2:40 PM EDT): Lipid abnormalities are well controlled Continue crestor JESSICA (obstructive sleep apnea) 09/28/2022 Raynaud's phenomenon 09/28/2022 Rheumatic joint disease 09/28/2022 Steatosis of liver 09/28/2022 Carotid stenosis, asymptomatic, bilateral 2022 Overview (09/28/2022): 06/2018- No stenosis ICA bilat, antegrade vertebral flow Assessment & Plan (09/28/2022 2:52 PM EDT): May repeat Carotid US next year in light 5 years since last US. Continue ASA and crestor Anemia 03/30/2019 Dyspnea 03/30/2019 Gastrointestinal complication 03/30/2019 Carotid bruit 11/02/2018 Coronary atherosclerosis 11/02/2018 Assessment & Plan (09/28/2022 2:39 PM EDT): Coronary artery disease is stable, no concerning symptoms Continue GDMT= ASA, crestor, coreg, and lisinopril/HCTZ continue risk factor modifications- heart healthy diet, regular exercise as tolerated and continue all medications. Diastolic dysfunction 11/02/2018 Assessment & Plan (09/28/2022 2:40 PM EDT): Currently euvolemic, and stable Dyslipidemia 11/02/2018 Elevated liver enzymes 11/02/2018 Renal insufficiency 11/02/2018 Diabetes mellitus 09/25/2016 Gastroesophageal reflux disease 09/25/2016 Rheumatoid arthritis 09/25/2016 History of heart artery stent 08/03/2014 Encounters Date Type Department Care Team Description 10/11/2024 Orders Only [facility] [address] [place] [address] Tamela Hutchins MA from Last 3 Months Family History Medical History Relation Name Comments Brain cancer Brother Coronary artery disease Father Coronary artery disease Mother Relation Name Status Comments Brother Father Mother Social History Tobacco Use Types Packs/Day Years Used Date Smoking Tobacco: Never Smokeless Tobacco: Never [place] Safety & Environment Answer Date Rec orded Fear of Current or Ex-Partner Not on file Emotionally Abused Not on file 05/27/2023 Physically Abused Not on file 05/27/2023 Sexually Abused Not on file 05/27/2023 Physically or Sexually Abused Not on file Comments Unknown Sex and Gender Information Value Date Recorded Sex Assigned at Female 10/11/2024 9:59 AM EDT Legal Sex Female 9:30 PM EDT Gender Identity Female 10/11/2024 9:59 AM EDT Sexual Orientation Heterosexual or Straight 12/2024 9:59 AM EDT Last Filed Vital Signs Vital Sign Reading Time Taken Comments Blood Pressure 115/57 11/08/2023 1:29 PM EDT Pulse 75 11/08/2023 1:29 PM EDT Temperature - - Respiratory Rate - - Oxygen Saturation 97% 11/08/2023 1:29 PM EDT Inhaled Oxygen Concentration - - Weight 89.4 kg (197 lb) 11/08/2023 1:29 PM EDT Height 158.8 cm (5' 2.5 ) 11/08/2023 1:29 PM EDT Body Mass Index 35.46 11/08/2023 1:29 PM EDT Plan of Treatment Health Maintenance Due Date Last Done Comments CT Colonography 1953 FIT-DNA 1953 FIT 1953 FOBT 1955 Medicare Annual Wellness (AWV) 1955 Sigmoidoscopy 1953 COVID-19 Vaccine (#1) 1958 Diabetes: Retinopathy Screening 1963 Depression Screening 1965 Diabetes: Urine Protein Screening 1972 Zoster Vaccines (1 of 2) 1972 Adult Tetanus 1975 Mammogram 1993 Fall Risk Screening 2018 Diabetes: Hemoglobin A1C 08/10/2018 05/13/2018 Pneumococcal Vaccine: 50+ Years (3 of 3 - PCV20 or PCV21) 04/05/2020 04/05/2015, 11/21/2014 Influenza Vaccine (#1) 2024 4, 12/22/2022, 01/22/2022, Additional history exists Colonoscopy 10/05/2028 10/05/2018 Colorectal Cancer Screening 10/05/2028 HIB Vaccines Aged Out No longer eligi ble based on patient's age to complete this topic HPV Vaccines Aged Out No longer eligi ble based on patient's age to complete this topic IPV Vaccines Aged Out No longer eligi ble based on patient's age to complete this topic Meningococcal B Vaccine Aged Out No l onger eligible based on patient's age to complete this topic Meningococcal Vaccine Aged Out No [place] k[place]ani eligible based on patient's age to complete this topic Rotavirus Vaccines Aged Out No longer eligible based on patient's age to complete this topic Procedures Procedure Name Priority Date/Time Associated Diagnosis Comments HEMOGLOBIN A1C Routine 05/13/2018 12:06 PM EST from Last 3 Months or Most Recently Relevant to Health Maintenance Results * (ABNORMAL) Hemoglobin A1C (05/13/2018 12:06 PM EST) Hemoglobin A1C 6.7(H) 4.0 - 6.0 % LAB CONVERSIONS Estimated Average Glucose 146(H) 70 - 126 mg/dL LAB CONVERSIONS 05/13/2018 12:0 6 PM EST 05/13/2018 12:55 PM EST Narrative LAB CONVERSIONS - 05/14/2018 12:24 PM EST Yes: Add to Previous draw if able us Rolly Salvador LAB BLOOD ORDERABLES Final Re sult LAB CONVERSIONS from Last 3 Months or Most Recently Relevant to Health Maintenance Insurance [employer] Care Teams Industrial Technologist Relationship Specialty Start Date End Date Arley Keller MD [address] [place] [address] PCP - General Family Medicine 09/10/23
--- OUTSIDE RECORDS SUMMARY | 2024-11-21 09:14 | XMS_ITS | Encounter Summary ---
Author Organization [facility] Address [address] [place] [address] Phone Care Team Providers Care Solid Waste Facility Supervisor Name Role Phone Tiff Ambrose MD Primary Care Provider [phone] Encounter Details Date Type Department Care Team (Late st Contact Info) Description 04/09/2018 Orders Only [facility] [address] [place] [address] Conversion, Onbase Social History Tobacco Use Types Packs/Day Years Used Date Smoking Tobacco: Never Assessed Comments Unknown Sex and Gender Information Value Date Recorded Sex Assigned at Not on file Legal Sex Female 2:21 PM EST Gender Identity Not on file Sexual Orientation Not on file documented as of this encounter Plan of Treatment Scheduled Orders Name Type Priority Associated Diagnoses Orde r Schedule OUTSIDE LAB SCAN Lab Ordered: 04/09/2018 documented as of this encounter Visit Diagnoses Not on filedocumented in this encounter Care Teams Solid Waste Facility Supervisor Relationship Specialty Start Date End Date Tiff Ambrose MD [address] [place] [address] PCP - General 11/19/17 documented as of this encounter
--- OUTSIDE RECORDS SUMMARY | 2024-11-21 09:14 | XMS_ITS | Clinical Summary ---
Author Organization [facility] Address [address] [place] [address], [address] [place] [address] Care Team Providers Care Lead Maintenance Technician Name Role Phone Payam Yu MD Primary Care Provider Social History Tobacco Use Types Packs/Day Years Used Date Smoking Tobacco: Never Assessed Comments Unknown Sex and Gender Information Value Date Recorded Sex Assigned at Not on file Legal Sex Female 8:41 PM EST Gender Identity Not on file Sexual Orientation Not on file Plan of Treatment Not on file Care Teams Lead Maintenance Technician Relationship Specialty Start Date End Date Payam Yu MD [address] [id number] PCP - General 01/31/16
--- OUTSIDE RECORDS SUMMARY | 2024-11-21 09:15 | XMS_ITS | Encounter Summary ---
Author Organization [facility] Address [address] [place] [address] Care Team Providers Care Heavy Antiarmor Weapons Infantryman Name Role Phone Arley Keller MD Primary Care Provider [phone] Encounter Details Date Type Department Care Team (Latest Contact Info) Description 11/09/2024 Results Follow-Up [facility] [address] [place] [address] Inocencia Poe PA [address] [place] [address] Dermatopathology exam Social History Tobacco Use Types [...] Office Visit [facility] [address] [place] [address] Shelton Díaz DPM [address] [place] [address] 11/30/2024 10:20 AM EDT Office Visit [facility] [place] [facility] [address] [place] [phone] Bobbi Barker MD [address] [place] [address] 09/27/2025 10:55 AM EDT Office Visit [facility] [address] [place] [address] Mohini Thrasher APRN-RECREATIONAL RESORT MANAGER [address] [place] [address] documented as of this encounter Visit Diagnoses Not on filedocumented in this encounter Care Teams Heavy Antiarmor Weapons Infantryman Relationship Specialty Start Date End Date Arley Keller MD [address] [place] [address] PCP - General Family Medicine 03/02/23 documented as of this encounter
--- OUTSIDE RECORDS SUMMARY | 2024-11-21 09:15 | XMS_ITS | Clinical Summary ---
Author Organization [facility] Address [address] [place] [address] Care Team Providers Care Clinical Trial Associate Name Role Phone Arley Keller MD Primary Care Provider [phone] Allergies Active Allergy Reactions Criticality Noted Date Comments Adalimumab 09/21/2022 Other Reaction(s): Hives Diclofenac 09/21/2022 Other Reaction(s): does not help Diphenhydramine 09/21/2022 Other Reaction(s): brain fog, VERY FOGGY BRAIN Other 09/21/2022 Oxaprozin 09/21/2022 Other Reaction(s): INEFFECTIVE Oxycodone-Acetaminophen Nausea And Vomiting 03/03/2017 Statins 03/03/2017 Other Reaction(s): MUSCLE CRAMPS, Myalgia Medications sertraline (Zoloft) 50 MG tablet Take 50 mg by mouth Daily Active pantoprazole (ProtoNix) 40 MG EC tablet Take 40 mg by mouth in the morning. Take before meals. Active Multiple Vitamin (multivitamin) capsule Take 1 capsule by mouth Daily Active metFORMIN (Glucophage) 850 MG tablet Take 850 mg by mouth Daily Active insulin lispro (HumaLOG) 100 UNIT/ML injection Inject under the skin in the morning and at noon and in the evening. Inject with meals. Active Lantus SoloStar 100 UNIT/ML pen Inject under the skin in the morning. Active hydroxychloroq uine (Plaquenil) 200 MG tablet Take 200 mg by mouth Daily Active gabapentin (Neurontin) 100 MG capsule Take 200 mg by mouth in the morning and 200 mg before bedtime. Active furosemide (Lasix) 20 MG tablet Take 20 mg by mouth Daily Active etanercept (Enbrel) 50 MG/ML injection Inject 1 mL under the skin 1 (one) time per week Active colchicine 0.6 MG tablet Take 0.6 mg by mouth Daily Active cholecalcifero l (Vitamin D-3) 25 MCG (1000 UT) tablet Take 1,000 Units by mouth in the morning. Active carvedilol (Coreg) 3.125 MG tablet Take 3.125 mg by mouth in the morning and 3.125 mg in the evening. Take with meals. Active aspirin 81 MG EC tablet Take 81 mg by mouth 1 (one) time Active amitriptyline (Elavil) 25 MG tablet Take 25 mg by mouth at bedtime Active folic acid (Folvite) 1 MG tablet Take 1 mg by mouth in the morning. Active Ozempic, 1 MG/DOSE, 4 MG/3ML solution pen-injector Active montelukast (Singulair) 10 MG tablet Take 10 mg by mouth 07/09/19 24 Active Continuous Glucose Senior Partner (FreeStyle Veena 3 [place]) device 08/11/19 24 Active fluticasone (Flonase) 50 MCG/ACT nasal spray Administer 1 spray into each nostril Daily Shake gently. Before first use, prime pump. After use, clean tip and replace cap. Active ferrous sulfate 325 (65 Fe) MG tablet Take 1 tablet by mouth in the morning. Take with meals. Active rosuvastatin (Crestor) 20 MG tablet Take 20 mg by mouth Daily Active zoledronic acid (Reclast) 5 MG/100ML solution Infuse 5 mg into a venous catheter 1 (one) time Active Continuous Glucose Sensor (FreeStyle Veena 3 Sensor) [facility] [place] 06/28/19 25 Active lisinopril 5 MG tablet 07/20/19 25 Active Slow-Mag 71.5-119 MG tablet delayed-releas e TAKE 1 TAB BY MOUTH TWICE DAILY X1 WEEK BEFORE & AFTER RECLAST INFUSION. STOP & CALL IF DIARRHEA 04/27/19 25 025 Discontinued Active Problems Problem Noted Date Diagnosed Date Acquired equinus deformity of foot 06/17/2023 Callus 06/17/2023 Diabetic neuropathy 06/17/2023 Valgus deformity of great toe 06/17/2023 Hammer toe 06/17/2023 Venous (peripheral) insufficiency 06/17/2023 History of heart artery stent 08/03/2014 GERD (gastroesophageal reflux disease) Encounters Date Type Department Care Team Description 11/20/2024 11:00 AM EDT Office Visit [facility] [facility] [address] [place] [address] Alicia Foley MD Encounter for removal of sutures (Primary Dx) 11/20/2024 Bamboo flowsheet [facility] [address] [place] [address] Alicia Foley MD 11/20/2024 Travel 11/09/2024 Results Follow-Up [facility] [address] [place] [address] Inocencia Poe PA Dermatopathology exam 11/06/2024 3:30 PM EDT Office Visit [facility] [address] [place] [address] Alicia Foley MD Basal cell carcinoma (BCC) of chest (Primary Dx) 11/06/2024 Bamboo flowsheet [facility] [address] [place] [address] Alicia Foley MD 11/06/2024 Travel 11/03/2024 10:30 AM EDT Office Visit [facility] [address] [place] [address] Shelton Díaz DPM Type II diabetes mellitus with neurological manifestations (HCC); Pre-ulcerative calluses; Hallux valgus of right foot; Hallux valgus of left foot; Hammertoe of right foot; Hammertoe of left foot; 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; Plantar fat pad atrophy of left foot 11/03/2024 Bamboo flowsheet [facility] [address] [place] [address] Shelton Díaz DPM 11/03/2024 Travel 10/25/2024 Travel 10/17/2024 Telephone [facility] [address] [place] [address] Rosemary Ball RTKirill Falcon Obtain diabetic shoes and orthotics 10/05/2024 Telephone [facility] [address] [place] [address] Mariama Deras LPN Results 10/04/2024 [facility] [address] [place] [address] Alicia Foley MD Dermatopathology exam 09/29/2024 10:50 AM EDT Office Visit [facility] [address] [place] [address] Mohini Thrasher, PARAMEDIC INSTRUCTOR-INSIDE BARREL LATHE OPERATOR Seborrheic keratosis (Primary Dx); Capillary angioma; Lentigines; History of basal cell carcinoma; Actinic keratosis; Neoplasm of unspecified behavior of bone, soft tissue, and skin 09/29/2024 Bamboo flowsheet [facility] [address] [place] [address] Mohini Thrasher, PARAMEDIC INSTRUCTOR-INSIDE BARREL LATHE OPERATOR 09/29/2024 Travel from Last 3 Months Immunizations Immunization Administration Dates Next Due Influenza, Seasonal, Quadriv alent, Adjuvanted 12/22/2022,01/22/2022,01/17/2020 Influenza, Unspecified 12/27/2023,12/22/2022,04/2014 Influenza, injectable, MDCK, preservative free, quadrivalent 12/31/2017 Influenza, injectable, quadr ivalent, preservative free 02/16/2017 Influenza, trivalent, adjuvanted 01/04/2019 Pneumococcal Conjugate PCV 13 11/21/2014 Pneumococcal Polysaccharide PPSV23 04/05/2015 Family History Medical History Relation Name Comments Brain cancer Brother [facility] Cancer Brother [facility] Myeloma Daughter Heart disease Father Glaucoma Mother Heart disease Mother Brain cancer Sibling Rheumatologic disease Sister Danna Keen Melanoma Neg Hx Relation Name Status Comments Brother [facility] Daughter Alive Father Mother Sibling Sister Danna Keen Social History Tobacco Use Types Packs/Day Years Used Date Smoking Tobacco: Former Cigarettes 0.5 15 0 06/03/1964 - 06/04/1979 Smokeless Tobacco: Never Tobacco Cessation:Counseling Given: Not Answered Alcohol Use Standard Drinks/Week Comments Never 0 (1 standard drink = 0.6 oz pur e alcohol) Caffeine: soda Comments Unknown Sex and Gender Information Value Date Recorded Sex Assigned at Female 04/17/2023 11:54 AM EST Legal Sex Female 6:34 PM EDT Gender Identity Female 04/17/2023 11:54 AM EST Sexual Orientation Straight 04/17/2023 11 :54 AM EST Last Filed Vital Signs Vital Sign Reading Time Taken Comments Blood Pressure 112/64 06/07/2024 10:16 AM EST Pulse 76 06/07/2024 10:16 AM EST Temperature 36.3 C (97.3 F) 09/17/2023 8:04 AM EDT Respiratory Rate 16 06/07/2024 10:16 AM EST Oxygen Saturation 96% 06/07/2024 10:16 AM EST Inhaled Oxygen Concentration - - Weight 88.5 kg (195 lb) 06/07/2024 10:16 AM EST Height 160 cm (5' 3 ) 06/07/2024 10:16 AM EST Body Mass Index 34.54 06/07/2024 10:16 AM EST Plan of Treatment Upcoming Encounters Date Type Department Care Team (Late st Contact Info) Description 11/24/2024 11:15 AM EDT Office Visit [facility] [address] [place] [address] Shelton Díaz DPM [address] [place] [address] 11/30/2024 10:20 AM EDT Office Visit [facility] [address] [place] [address] Bobbi Barker MD [address] [place] [address] 09/27/2025 10:55 AM EDT Office [facility] [address] [place] [address] Mohini Thrasher, JULIAN-INSIDE BARREL LATHE OPERATOR [address] [place] [address] Procedures Procedure Name Priority Date/Time Associated Diagnosis Comments SKIN REPAIR Routine 11/06/2024 3:51 PM EDT Basal cell carcinoma (BCC) of chest SKIN EXCISION Routine 11/06/2024 3:50 PM EDT Basal cell carcinoma (BCC) of chest DERMATOPATHOLOGY EXAM Routine 11/06/2024 12:00 AM EDT Basal cell carcinoma (BCC) of chest SKIN / NAIL BIOPSY Routine 09/29/2024 10 :46 AM EDT Neoplasm of unspecified behavior of bone, soft tissue, and skin CRYOTHERAPY SKIN LESION Routine 09/30/19 10:46 AM EDT Actinic keratosis DERMATOPATHOLOGY EXAM Routine 09/29/2024 12:00 AM EDT Neoplasm of unspecified behavior of bone, soft tissue, and skin from Last 3 Months Results * Skin repair (11/06/2024 3:51 PM EDT) Narrative dAiti Hernandes LPN - 11/06/2024 3:51 PM EDT Complexity: Intermediate Final length (cm): 3.3 Reason for type of repair: allow closure of the large defect Undermining: edges undermined Undermining comment: The surrounding tissue was undermined until the skin edges could be approximated without undue tension. Any tissue redundancies were removed. Subcutaneous layers (deep stitches): Suture size: 3-0 Suture type comment: Biosyn Stitches: Buried horizontal mattress (Closure was performed in a layered fashion with subcutaneous tissue closed first using tension-bearing absorbable sutures to the level of the superficial fascia.) Fine/surface layer approximation (top stitches): Suture size: 4-0 Suture type: Prolene (polypropylene) Stitches: simple running Stitches comment: Epicuticular skin sutures were then placed with minimal tension. Suture removal (days): 14 Outcome: patient tolerated procedure well with no complications Post-procedure details: sterile dressing applied and wound care instructions given Post-procedure details comment: It was emphasized to the patient to contact the office for any signs of infection, uncontrollable bleeding, or complications. Dressing type: bandage Result [facility] Alicia Foley MD DERM PROCEDURE ORDERABLES Fin al Result * Skin excision (11/06/2024 3:50 PM EDT) Aditi ArizmendiSHYANN - 11/06/2024 3:50 PM EDT Lesion length (cm): 0.7 Lesion width (cm): 0.6 Margin per side (cm): 0.4 Total excision diameter (cm): 1.5 Informed consent: discussed and consent obtained Informed consent comment: Risks and possible complications were discussed as noted on the consent form. The consent form was signed prior to the procedure. Timeout: patient name, date of , surgical site, and procedure verified Timeout comment: Patient and provider identified site. Site was marked and excision was drawn out. Photo was taken and shown to patient, patient verified this is the correct site. Procedure prep: Patient was prepped and draped in usual sterile fashion (The planned incision lines were drawn along relaxed skin tension lines, if possible, to minimize scarring and deformity of surrounding structures.) Prep type: Chlorhexidine Anesthesia: the lesion was anesthetized in a standard fashion Anesthesia comment: The local anesthetic was injected to create a field block at the site of the procedure. Anesthetic: 1% lidocaine w/ epinephrine 1-100,000 buffered w/ 8.4% NaHCO3 Instrument used: #15 blade Instrument used comment: Incisions were made as drawn, and the surrounding tissue was undermined until the skin edges could be approximated without undue tension. Any tissue redundancies were removed. Hemostasis achieved with: electrodesiccation Additional details: Amount of lidocaine used: 6.0 ml Estimated blood loss: < 1.0 ml Result [facility] Alicia Foley MD DERM PROCEDURE ORDERABLES Fin al Result * Dermatopathology exam (11/06/2024 12:00 AM EDT) Only the most recent of2 resultswithin the time period is included. SPECIMEN TYPE ------ SPECIMEN: CHEST MEDIAL ------ [facility] ICD10 Code C44.519 [facility] PROTOCOL EXC - EXCISION ANGIEMIA [facility] Final Diagnosis SCAR AND WOUND REPAIR REACTION WITH NO RESIDUAL BASAL CELL CARCINOMA. COMMENT: This material was reviewed in conjunction with [id number]. [facility] Gross Text 0.8x0.8cm scar 0.1cm away 3 blocks, (tips in 1) (3 in 2) (2 in 3) (mw/cp) (11/08/24) [facility] Microscopic Description Microscopic examination performed. [facility] CPT 76504*1 [facility] Skin Topography unknown / Unknown 11/06/2024 3:50 PM EDT Comment:Differential Diagnos is: BCC, superficial multicentric and nodular types Check Margins: yes Previous accession number: [id number] Diagnosis: (C44.519) Basal cell carcinoma (BCC) of chest Plan: Skin excision us Alicia Foley MD LAB PATHOLOGY ORDERABLES Joi bosch Result [facility] * Lesion biopsy (09/29/2024 10:46 AM EDT) Narrative Ami Hoyt MA - 09/29/2024 10:46 AM EDT Type of biopsy: tangential Informed consent: discussed and consent obtained Informed consent comment: The risks and benefits of the biopsy were discussed. Risks include but are not limited to bleeding, infection, scarring, pain, and nerve damage. An opportunity to ask questions prior to the procedure was permitted and all questions were answered. Patient was prepped and draped in usual sterile fashion: area cleansed with alcohol. Anesthesia: the lesion was anesthetized in a standard fashion Anesthetic: 1% lidocaine w/ epinephrine 1-100,000 buffered w/ 8.4% NaHCO3 Instrument used: DermaBlade Hemostasis achieved with: electrodesiccation Outcome: patient tolerated procedure well Outcome comment: The specimen was placed in a prelabeled formalin container to be sent for pathology Post-procedure details: sterile dressing applied and wound care instructions given Post-procedure details comment: Emphasized need to contact clinic for any signs of infection, uncontrollable bleeding, or complications. Dressing type: bandage Additional details: Photo taken Amount of lidocaine used: 1cc us Mohini Epps Felter PARAMEDIC INSTRUCTOR-INSIDE BARREL LATHE OPERATOR DERM PROCEDURE ORDERAB LES Final Result * Cryotherapy, skin lesion (09/29/2024 10:46 AM EDT) us Mohini Epps Felter PARAMEDIC INSTRUCTOR-INSIDE BARREL LATHE OPERATOR DERM PROCEDURE ORDERAB LES Final Result from Last 3 Months Insurance [employer] Care Teams Clinical Trial Associate Relationship Specialty Start Date End Date Arley Keller MD [address] [place] [address] PCP - General Family Medicine 03/02/23
--- OUTSIDE RECORDS SUMMARY | 2024-11-21 09:15 | XMS_ITS | Encounter Summary ---
Author Organization [facility] Address [address] [place] [address] Care Team Providers Care Senior Hydrogeologist Name Role Phone Arley Keller MD Primary Care Provider [phone] Encounter Details Date Type Department Care Team (Late st Contact Info) Description 11/20/2024 Bamboo flowsheet [facility] [place] [facility] [address] [place] [address] Alicia Foley MD [address] [place] [address] Social History Tobacco Use Types Packs/Day Years [...] Description 11/24/2024 11:15 AM EDT Office Visit [facility] [place] [facility] [address] [place] [address] Kubitz, Shelton R, DPM [address] [place] [address] 11/30/2024 10:20 AM EDT Office Visit [facility] [place] [facility] [address] [place] [address] Bobbi Barker MD [address] [place] [address] 09/27/2025 10:55 AM EDT Office Visit [facility] [place] [facility] [address] [place] [address] Mohini Thrasher, COMPRESSOR OPERATOR PORTABLE-MECHANICAL ENGINEERING LECTURER [address] [place] [address] documented as of this encounter Visit Diagnoses Not on filedocumented in this encounter Care Teams Senior Hydrogeologist Relationship Specialty Start Date End Date Arley Keller MD [address] [place] [address] PCP - General Family Medicine 03/02/23 documented as of this encounter
--- OUTSIDE RECORDS SUMMARY | 2024-11-21 09:15 | XMS_ITS | Encounter Summary ---
Author Organization [facility] Address [address] [place] [address] [address] Care [address] Shaft And Steering Post Repairer Name Role Phone Arley Keller MD Primary Care Provider [phone] Encounter Details Date Type Department Care Team (Latest Contact Info) Description 11/20/2024 Travel Social History Tobacco Use Types Packs/Day Years [...] Office Visit [facility] [facility] [address] [place] [address] Shelton Díaz DPM [address] [place] [address] 11/30/2024 10:20 AM EDT [facility] Visit [facility] [address] [place] [address] Bobbi Barker MD [address] [place] [address] 09/27/2025 10:55 AM EDT Office Visit [facility] [address] [place] [address] Mohini Thrasher, BANDSAW OPERATOR-HOME HEALTH NURSE LICENSED PRACTICAL [address] [place] [address] documented as of this encounter Visit Diagnoses Not on filedocumented in this encounter Care Teams Drive Shaft And Steering Post Repairer Relationship Specialty Start Date End Date Arley Keller MD [address] [place] [address] PCP - General Family Medicine 03/02/23 documented as of this encounter
--- OUTSIDE RECORDS SUMMARY | 2024-11-21 09:15 | XMS_ITS | Clinical Summary ---
Author Organization [facility] Address [address] [place] [address] Care Team Providers Care Armature And Rotor Winder Name Role Phone Tiff Ambrose MD Primary Care Provider [phone] Allergies Active Allergy Reactions Criticality Noted Date Comments Not Able To Determine 03/03/2017 Unknown antihistamine Oxycodone-Acetaminop hen Nausea and Vomiting 03/03/2017 Statins Myalgia 03/03/2017 Medications metformin 850 MG Tab Take 850 mg by mouth 2 times daily with meals. Active pantoprazole [address] tablet Take 40 mg by mouth 2 times daily. Active sertraline 50 MG Tab tablet Take 50 mg by mouth daily. Active Calcium Carbonate Antacid 750 MG Chew Tab Chew 500 mg at bedtime. Active aspirin EC [address] Take 81 mg by mouth daily. Active celecoxib 200 MG Cap capsule Take 200 mg by mouth daily. Active amitriptyline 25 MG Tab tablet Take 25 mg by mouth At bedtime. Active lisinopril-hydroc hlorothiazide 10-12.5 MG Tab Take 1 tablet by mouth daily. Active Multiple Vitamin (MULTIVITAMIN) Cap Take 1 capsule by mouth daily. Active Glucosamine-Chond roit-Vit C-Mn (GLUCOSAMINE 1500 COMPLEX PO) Take 2 tablets by mouth daily. Active Vitamin D3 1000 units Tab tablet Take 1,000 Units by mouth daily. Active hydroxychloroquin e 200 MG Tab tablet Take 200 mg by mouth 2 times daily. Active tizanidine 2 MG Tab Take 2 mg by mouth at bedtime. Active glucose 40 % Gel gel Take 15 g by mouth once. Active Blood Gluc Meter Disp-Strips (BLOOD GLUCOSE METER DISPOSABLE) Device by Unknown route. Active Exenatide (BYETTA 5 MCG PEN) 5 MCG/0.02ML Solution Pen-injector injection Inject 1 Each under the skin daily. Active folic acid 1 MG Tab tablet Take 1 mg by mouth daily. Active metoprolol 25 MG tab regular release Take 25 mg by mouth 2 times daily. Active LANTUS SOLOSTAR 100 UNIT/ML Solution Pen-injector injection Inject 100 Units as directed 2 times daily. Active FLUZONE QUADRIVALENT 0.5 ML Suspension Prefilled Syringe Active clopidogrel 75 MG Tab tablet Take 75 mg by mouth daily. Active Family History Medical History Relation Name Comments Cancer Brother Heart Disease - Other Father Heart Disease - Other Mother Relation Name Status Comments Brother Father Mother Social History Tobacco Use Types Packs/Day Years Used Date Smoking Tobacco: Former Cigarettes Q uit: 1979 Smokeless Tobacco: Never Comments Unknown Sex and Gender Information Value Date Recorded Sex Assigned at Not on file Legal Sex Female 3:26 PM EST Gender Identity Female Sexual Orientation Not on file Last Filed Vital Signs Vital Sign Reading Time Taken Comments Blood Pressure - - Pulse - - Temperature 36.2 C (97.1 F) 04/21/2017 2:49 PM EST Respiratory Rate - - Oxygen Saturation - - Inhaled Oxygen Concentration - - Weight 100.2 kg (221 lb) 04/21/2017 2:49 PM EST Height 160 cm (5' 3 ) 04/21/2017 2:49 PM EST Body Mass Index 39.15 04/21/2017 2:49 PM EST Plan of Treatment Health Maintenance Due Date Last Done Comments DEXA SCAN DISCUSSION 1953 HEPATITIS C VIRUS SCREENING 1953 TETANUS 1953 TDAP (ADULT) 1972 CERVICAL CANCER SCREENING DISCUSSION 1974 LIPID SCREENING 1993 MAMMOGRAM SCREENING DISCUSSION 1993 COLORECTAL CANCER SCREENING DISCUSSION 1998 PNEUMOCOCCAL VACCINE SERIES (1 of 1 - PCV) 2003 ZOSTER (SHINGLES) VACCINE (1 of 2) 2003 COVID-19 VACCINE ( - 2023-2 5 season) 2023 INFLUENZA VACCINE (#1) 2024 RSV VACCINE (1 - 1-dose 75+ series) 2028 HEP B VACCINE Aged Out No longer jerry castelan based on patient's age to complete this topic [facility] Care Teams Armature And Rotor Winder Relationship Specialty Start Date End Date Tiff Ambrose MD PCP - General Family Medicine 05/28/16
--- OUTSIDE RECORDS SUMMARY | 2024-11-21 09:15 | XMS_ITS ---
Author Name SULEIMAN RAYMUNDO Address [address] [place] [address] [address] [place] [address] Phone Organization [facility] Address [address] [facility] [address] [place] [address] Phone Care Team Providers Care Funeral Driver Name Role Phone RAYMUNDOLENIN SULEIMAN Unavailable [phone] NKECHI HARRIS Unavailable ALLERGIES, ADVERSE REACTIONS AND ALERTS Allergy Name Allergy Date Allergy Status Allergy Severity Allergy Reaction UNKNOWN DRUG ALLERGIES MAY E XIST PROBLEMS Problem None PROCEDURES Procedure Description Date Notes NO PROCEDURES PERFORMED ASSESSMENTS Assessment None PLAN OF TREATMENT Assessment Planned Activity LOINC Planned Leno e None CONSULTATION NOTE Note Author Date None HISTORY AND PHYSICAL NOTE Note Author Date None PROGRESS NOTE Note Author Date None DISCHARGE SUMMARY Note Author Date None CHIEF COMPLAINT AND REASON FOR VISIT FUNCTIONAL STATUS Functional or Cognitive Find ing None MENTAL STATUS Cognitive Finding None ENCOUNTERS Encounter Type Provider Diagnoses Start Date Location Disc harged to None SOCIAL HISTORY Social Status Observation Unknown if ever smoked Sex: Female CARE TEAM INFORMATION Funeral Driver Provider ID Role Location Phone NKECHI HARRIS [phone] [address] [place] [address] INSURANCE PROVIDERS Payer Name Policy type / Coverage type Covered libertarian ID Policy Solomon [employer] Private Health Insurance [id number] SELF
--- OUTSIDE RECORDS SUMMARY | 2024-11-21 09:26 | XMS_ITS | CCD ---
Author Organization [facility] Care Team Providers Care Supplier Relationship Director Name Role Phone FOSTER, SHEN Unavailable Unavailable [...] Attending Unavailable HALIE, BREE Primary Care Unavailable Halie, Bree Cisneros Unavailable Unavailable Unavailable Dr. Ary Arrieta Attending Unavailable Ambrose, Bree Dominique Referring Unavailable Ambrose, Bree Dominique Primary Care Unavailable Gholam, Dr. Kenroy Real Attending Unavai luci Ambrose, Bree Dominique Referring Unavailable Ambrose, Bree Dominique Primary Care Unavailable AMBROSE ., DR BREE Cisneros Admitting Unavailable AMBROSE ., DR BREE Cisneros Attending Unavailable AMBROSE ., DR BREE Cisenros Primary Care Unavailable NELDA, DR SARKAR Admitting Unavailable AMBROSE ., DR BREE Cisneros Primary Care Unavailable NELDA, DR SARKAR Attending Unavailable NELDA, DR SARKAR Consulting Unavailable AMBROSE ., DR BREE Cisneros Primary Care Unavailable MISC, DR LYLES Admitting Unavailable MISC, DR LYLES Attending Unavailable MISC, DR LYLES Consulting Unavailable AMBROSE ., DR BREE Cisneros Primary Care Unavailable KAMILAH, DR SHELTON Falcon Admitting Unavailable KAMLIAH, DR SHELTON Falcon Attending Unavailable BREE AMBROSE Primary Care Physician MD Bree Ambrose Primary Care Provider MD Fransisco Benavides Attending Provider DO Lalo Alvarado Emergency Provider MD Arley Keller Primary Care Provider [phone] Arley Keller MD Primary Care Provider Arley Keller Primary Care Physician Arley Keller Attending Unavailable Krishna Arley E. Admitting Unavailable Ross, Arley E. Attending Unavailable Arley Keller E. Attending Unavailable Krishna Arley E. Admitting Unavailable Krishna Arley E. Attending Unavailable Candelario, Mciaela L Attending Unavailable Akkina, Agustín Admitting Unavailable Akkina, Agustín Attending Unavailable Akkina, Agustín Referring Unavailable Arley Keller E. Attending Unavailable Krishna Arley E. Admitting Unavailable Krishna Arley E. Attending Unavailable ZULMA VALDIVIAY A Attending Unavailable Arley Keller Attending Unavailable Arley Keller MD Primary Care Provider Fransisco Benavides MD Attending Provider Fransisco Benavides Admitting Unavailable Fransisco Benavides Attending Unavailable Arley Keller E Primary Care Unavailable Fransisco Benavides Attending Unavailable Arley Keller Primary Care Unavailable Fransisco Benavides Admitting Unavailable Arley Keller MD Primary Care Provider [phone] Arley Keller Attending Unavailable Arley Keller E. Referring Unavailable Krishna, Arley E. Admitting Unavailable Arley Keller E. Attending Unavailable Krishna, Arley E. Admitting Unavailable ELTAHAWY, EHAB Attending Unavailable Arley Keller E. Admitting Unavailable Arley Keller E. Attending Unavailable Krishna Arley E. Referring Unavailable Kirnus, Randolph D Attending Unavailable Arley Keller E. Referring Unavailable Kirnus, Randolph D Attending Unavailable Krishna, Arley E. Attending Unavailable Kirnus, Randolph D Admitting Unavailable Kirnus, Randolph D Attending Unavailable Kirnus, Randolph D Referring Unavailable DARINEL, AHMAD F Attending Unavailable DARINEL, AHMAD F Referring Unavailable SHELTON TRIANA Attending Unavailable JOSELO THRASHER A Attending Unavailable SHELTON TRIANA Attending Unavailable PETNAPOLEON, HARRIS A Attending Unavailable PETITTI, HARRIS A Attending Unavailable Allergies Allergy Classification Reported Allergen(s) Allergy Type Date of Onset Reaction(s) Facility (15 sources) adalimumab; Translations: [Humira] Drug Allergy Rash, Hives [facility] (7 sources) Hmg-Coa Reductase Inhibitors (Statins); Translations: [Statins] Allergy to drug (finding) [facility] Repository (20 sources) oxaprozin; Translations: [Daypro] Drug Allergy 09-22-19 23 INEFFECTIVE [facility] (3 sources) Antihistamine TABS; Translations: [Antihistamine TABS] Allergy to drug (finding) [facility] Work Phone: (2 sources) black walnut pollen extract; Translations: [HOTSKKH-LEW-UZW REDUCTASE INHIBITORS] Drug Allergy 12-14-19 14 [facility] Rep[facility] (2 sources) Diclofenac; Translations: [DICLOFENAC] Drug Allergy 04-09-19 15 [facility] (1 source) diphenhydrAMINE Drug Allergy 01-05-20 13 [facility] (1 source) oxaprozin Drug Allergy 01-05-20 13 [facility] (13 sources) diphenhydrAMINE; Translations: [diphenhydramine] Drug Allergy 09-22-19 VERY FOGGY BRAIN [facility] (20 sources) HMG-CoA reductase inhibitor; Translations: [statins] Drug allergy 03-03-20 17 MUSCLE CRAMPS [facility] (20 sources) adalimumab; Translations: [adalimumab] Drug Allergy 09-22-19 [facility] (4 sources) Antihistamines - Alkylamine; Translations: [Antihistamines - Alkylamine] Allergy to substance 04-08-19 24 [facility] (20 sources) Acetaminophen / oxyCODONE; Translations: [OXYCODONE-ACETAMIN OPHEN] Drug Allergy 03-03-20 17 Nausea And Vomiting [facility] (20 sources) Diclofenac Drug Allergy 09-22-19 [facility] (20 sources) diphenhydrAMINE Drug Allergy 09-22-19 [facility] (20 sources) Other Allergy to substance 09-22-19 [facility] (1 source) oxaprozin; Translations: [OXAPROZIN] Drug Allergy 09-22-19 [facility] Repository Medications Current Medications Medication Drug Class(es) Dates Sig (Normalized) Sig (Original) 3 ML semaglutide 1.34 MG/ML Pen Injector [Ozempic] (5 sources) Start: 08-31-2024 inject 1 mg by subcutaneous injection every week Ozempic (1 mg dose) 4 mg/3 mL subcutaneous solution See Instructions, INJECT SUBCUTANEOUSLY 1 MG EVERY WEEK, # 9 mL, Refills(s) 3, Pharmacy: [facility]/pharmacy #[id number], 160, cm, 08/31/24 11:11:00 EDT, Height/Length Dosing, 89.4, kg, 08/31/24 11:11:00 EDT, Weight Dosing Start Date: 08/31/24 Status: Ordered Quantity: 9.0 Unit: mL Repeat number: 4 Start: 06-15-2024 inject 1 mg by subcu taneous injection every week Ozempic (1 mg dose) 4 mg/3 mL subcutaneous solution 1 mg, SubCutaneous, qWeek, # 9 mL, Refills(s) 0, Pharmacy: [facility], 160, cm, 06/02/24 11:22:00 EST, Height/Length Dosing, 87.2, kg, 06/02/24 11:22:00 EST, Weight Dosing Start Date: 06/15/24 Status: Ordered Start: 05-09-2024 inject 1 mg by subcu taneous injection every week Ozempic (1 mg dose) 4 mg/3 mL subcutaneous solution 1 mg, SubCutaneous, qWeek, # 9 mL, Refills(s) 0, Pharmacy: [facility], 160, cm, 02/29/24 9:24:00 EST, Height/Length Dosing, 92.1, kg, 02/29/24 9:24:00 EST, Weight Dosing Start Date: 05/09/24 Status: Ordered Start: 04-28-2024 inject 1 mg by subcu taneous injection every week Ozempic (1 mg dose) 4 mg/3 mL subcutaneous solution 1 mg, SubCutaneous, qWeek, # 9 mL, Refills(s) 0, Pharmacy: [facility]/pharmacy #[id number], 160, cm, 02/29/24 9:24:00 EST, Height/Length Dosing, 92.1, kg, 02/29/24 9:24:00 EST, Weight Dosing Start Date: 04/28/24 Status: Ordered acetaminophen 325 mg / HYDROcodone bitartrate 5 mg oral tablet (1 source) Opioid Agonist Start: 01-20-2021 [place] 325 mg-5 mg oral tablet 1 tab(s), Oral, q6hr for pain, 20 tab(s), Refill(s) 0, [facility]/pharmacy #[id number], 162, cm, 01/14/21 5:03:00 EDT, Height/Length Dosing, 100, kg, 01/14/21 5:03:00 EDT, Weight Dosing Start Date: 01/20/21 Status: Ordered amitriptyline hydrochloride 25 mg oral tablet (20 sources) Tricyclic Antidepressant Start: 01-13-2021 take 1 tablet by mouth at bedtime amitriptyline 25 mg Tab See Instructions, TAKE 1 TABLET BY MOUTH AT BEDTIME, # 30 tab(s), Refills(s) 11, Pharmacy: [facility], 160, cm, 06/02/24 11:22:00 EST, Height/Length Dosing, 87.2, kg, 06/02/24 11:22:00 EST, Weight Dosing Start Date: 08/14/24 Status: Ordered Quantity: 30.0 Unit: tab(s) Repeat number: 1 Amitriptyline HC l TABS TAKE 1/2 tab at bedtime Quantity: 0 Refills: 0 Ordered: 21-Jul-2017 DO Active Aspirin (20 sources) Platelet Aggregation Inhibitor, Nonsteroidal Anti-inflammatory Drug Start: 12-08-2022 aspirin 81 mg, Da arsen, Refills(s) 0 Start Date: 12/08/22 Status: Ordered Repeat number: 1 Start: 12-08-2022 aspirin 81 mg, Daily, Refills(s) 0 Start Date: 12/08/22 Status: Ordered take 1 tablet by mouth once aspi rin 81 MG EC tablet Take 81 mg by mouth 1 (one) time Active Calcium Citrate / Vitamin D (8 sources) Start: 01-13-2021 take 1 tablet by mouth once daily calcium-vitamin D 1 TAB, Oral, Daily, Prophylaxis Start Date: 01/13/21 Status: Ordered Repeat number: 1 Start: 01-13-2021 take 1 tablet by mariluz th once daily calcium-vitamin D 1 TAB, Oral, Daily, Prophylaxis Start Date: 01/13/21 Status: Ordered carvedilol 3.125 mg oral tablet (20 sources) alpha-Adrenergic Keenan, beta-Adrenergic Keenan Start: 01-25-2023 take 1 tablet by mouth twice daily carvedilol 3.125 mg Tab 3.125 mg = 1 tab(s), Oral, BID, # 180 tab(s), Refills(s) 3, Pharmacy: [facility], 160, cm, 02/29/24 9:24:00 EST, Height/Length Dosing, 92.1, kg, 02/29/24 9:24:00 EST, Weight Dosing Start Date: 05/09/24 Status: Ordered Quantity: 180.0 Unit: tab(s) Repeat number: 4 Start: 01-13-2021 take 1 tablet by mariluz [...] 12-Apr-2018 DO Active Celebrate Multivitamin oral capsule (8 sources) Start: 01-13-2021 take 1 capsule by mouth once daily Celebrate Multivitamin oral capsule 1 cap(s), Oral, Daily, Prophylaxis Start Date: 01/13/21 Status: Ordered Repeat number: 1 Start: 01-13-2021 take 1 capsule by mo uth once daily Celebrate Multivitamin oral capsule 1 cap(s), Oral, Daily, Prophylaxis Start Date: 01/13/21 Status: Ordered celecoxib 200 mg oral capsule (4 sources) Nonsteroidal Anti-inflammatory Drug Start: 01-13-2021 take 1 capsule by mouth once daily celecoxib 200 mg Cap 200 mg = 1 cap(s), Oral, Daily, Refills(s) 0, Inflammation Start Date: 01/13/21 Status: Ordered cholecalciferol 0.025 mg oral tablet (20 sources) Vitamin D take 1 tablet by mouth in the morning cholecalciferol (Vitamin D-3) 25 MCG (1000 UT) tablet Take 1,000 Units by mouth in the morning. Active Chondroitin Sulfates / Glucosamine (6 sources) End: 07-07-2024 take 1 capsule by mouth once daily Glucosamine-Chondro itin (GLUCOSAMINE CHONDR COMPLEX PO) Take 1 capsule by mouth Daily 07/07/2024 Discontinued take 1 capsule by mouth once shannan ly Glucosamine-Chondroitin (GLUCOSAMINE CHONDR COMPLEX PO) Take 1 capsule by mouth Daily Active colchicine 0.6 mg oral tablet (20 sources) take 1 tablet by mouth once daily colchicine 0.6 MG tablet Take 0.6 mg by mouth Daily Active Continuous Blood Gluc Sensor (FreeStyle Denny 2 Sensor) [facility] [place] (2 sources) Start: 02-03-2023 Continuous Blood Gluc Sensor (FreeStyle Denny 2 Sensor) [facility] [place] Continuous Glucose Pocket Operator (FreeStyle Denny 3 [place]) device (18 sources) Start: 08-11-2023 Continuous Glucose Pocket Operator (FreeStyle Denny 3 [place]) device 08/11/2023 Active Continuous Glucose Sensor (FreeStyle Denny 3 Sensor) [facility] [place] (11 sources) Start: 06-27-2024 Continuous Glucose Sensor (FreeStyle Denny 3 Sensor) [facility] [place] 06/27/2024 Active CPAP supplies - Mask, tubing, connectors (6 sources) Start: 09-02-2023 CPAP supplies - Mask, tubing, connectors CPAP supplies - Mask, tubing, connectors, See Instructions, 1 EA, 2, CPAP supplies - Mask, tubing, connectors, Supply Start Date: 09/02/23 Status: Ordered Quantity: 1.0 Unit: EA Repeat number: 3 Indications: Obstructive sleep apnea (adult) (pediatric); Start: 09-02-2023 CPAP supplies - Mask, tubing, connectors CPAP supplies - Mask, tubing, connectors, See Instructions, 1 EA, 2, CPAP supplies - Mask, tubing, connectors, Supply Start Date: 09/02/23 Status: Ordered Erythromycin (1 source) Macrolide, Macrolide Antimicrobial Start: 01-20-2021 erythromycin ophthalmic 0.5% ointment 0.5 in, Eye-Both, QID, 3.5 gram, Refill(s) 1, [facility]/pharmacy #[id number], 162, cm, 01/14/21 5:03:00 EDT, Height/Length Dosing, 100, kg, 01/14/21 5:03:00 EDT, Weight Dosing Start Date: 01/20/21 Status: Ordered 1 ml etanercept 50 mg/ml prefilled syringe (20 sources) Tumor Necrosis Factor Keenan Start: 05-09-2024 Enbrel Prefilled Syringe 50 mg/mL subcutaneous solution See Instructions, INJECT 1 SYRINGE SUBCUTANEOUSLY WEEKLY, # 4 mL, Refills(s) 0, [id number] 160, cm, 08/31/24 11:11:00 EDT, Height/Length Dosing, 89.4, kg, 08/31/24 11:11:00 EDT, Weight Dosing Start Date: 08/31/24 Status: Ordered Quantity: 4.0 Unit: mL Repeat number: 1 Start: 01-13-2021 inject 50 mg by subc utaneous injection every week Enbrel 50 mg, SubCutaneous, qWeek, Other (see comment) Start Date: 01/13/21 Status: Ordered ferrous sulfate 325 mg oral tablet (18 sources) take 1 tablet by mouth at mealtime ferrous sulfate 325 (65 Fe) MG tablet Take 1 tablet by mouth in the morning. Take with meals. Active fluticasone propionate 0.05 mg/actuat metered dose nasal spray (18 sources) Corticosteroid take 1 spray(s) nasal route once daily fluticasone (Flonase) 50 MCG/ACT nasal spray Administer 1 spray into each nostril Daily Shake gently. Before first use, prime pump. After use, clean tip and replace cap. Active folic acid 1 mg oral tablet (20 sources) take 1 tablet by mouth in the morning folic acid (Folvite) 1 MG tablet Take 1 mg by mouth in the morning. Active fresstyle denny 3 sensors (3 sources) Start : 04-18 fresstyle denny 3 sensors fresstyle denny 3 sensors, See Instructions, 12 EA, 4, to check BS e11.22, [facility]/pharmacy #[id number], Supply, 160, cm, 02/29/24 9:24:00 EST, Height/Length Dosing, 92.1, kg, 02/29/24 9:24:00 EST, Weight Dosing Start Date: 04/18/24 Status: Ordered fresstyle denny 3+ sensors (2 sources) Start : 08-31 fresstyle denny 3+ sensors fresstyle denny 3+ sensors, See Instructions, 12 EA, 4, to check BS e11.22, [facility]/pharmacy #[id number], Supply, 160, cm, 08/31/24 11:11:00 EDT, Height/Length Dosing, 89.4, kg, 08/31/24 11:11:00 EDT, Weight Dosing Start Date: 08/31/24 Status: Ordered Quantity: 12.0 Unit: EA Repeat number: 5 furosemide 20 mg oral tablet (20 sources) Loop Diuretic Start : 01-13 take 1 tablet by mouth once daily furosemide 20 mg Tab 20 mg = 1 tab(s), Oral, Daily, # 90 tab(s), Refills(s) 3, Pharmacy: [facility], 160, cm, 02/29/24 9:24:00 EST, Height/Length Dosing, 92.1, kg, 02/29/24 9:24:00 EST, Weight Dosing Start Date: 05/09/24 Status: Ordered Quantity: 90.0 Unit: tab(s) Repeat number: 4 gabapentin 100 mg oral capsule (20 sources) Anti-epileptic Agent Start : 01-13 take 2 capsules by mouth at bedtime gabapentin 100 mg Cap See Instructions, TAKE 2 CAPSULES BY MOUTH AT BEDTIME, # 200 cap(s), Refills(s) 1, Pharmacy: [facility], 160, cm, 06/02/24 11:22:00 EST, Height/Length Dosing, 87.2, kg, 06/02/24 11:22:00 EST, Weight Dosing Start Date: 08/29/24 Status: Ordered Quantity: 200.0 Unit: cap(s) Repeat number: 1 glucosamine sulfate 500 mg oral capsule (1 source) Start : 01-13 take 1 capsule by mouth once daily glucosamine 500 mg Cap 500 mg = 1 cap(s), Oral, Daily, Prophylaxis Start Date: 01/13/21 Status: Ordered hydroCHLOROthiazide 12.5 mg / lisinopril 10 mg oral tablet (2 sources) Thiazide Diuretic, Angiotensin Converting Enzyme Inhibitor take 1 tablet by mouth in the morning lisinopril-hydroCHLOROt hiazide 10-12.5 MG tablet Take 1 tablet by mouth in the morning. 0 Active hydroxychloroquine sulfate 200 mg oral tablet (20 sources) Antimalarial, Antirheumatic Agent Start : 01-13 take 1 tablet by mouth twice daily hydroxychloroquine 200 mg Tab See Instructions, TAKE 1 TABLET BY MOUTH TWICE DAILY, # 160 tab(s), Refills(s) 3, Pharmacy: [facility]/pharmacy #[id number], 160, cm, 08/31/24 11:11:00 EDT, Height/Length Dosing, 89.4, kg, 08/31/24 11:11:00 EDT, Weight Dosing Start Date: 08/31/24 Status: Ordered Quantity: 160.0 Unit: tab(s) Repeat number: 4 take 1 tablet by mouth once caity y hydroxychloroquine (Plaquenil) 200 MG tablet Take 200 mg by mouth Daily Active 3 ml insulin glargine 100 unt/ml pen injector (20 sources) Insulin Analog Start: 01-13-2021 Lantus Solosta r Pen 100 units/mL subcutaneous solution 20 unit(s), SubCutaneous, Daily, # 30 mL, Refills(s) 4, [facility]acy[facility], 160, cm, 02/29/24 9:24:00 EST, Height/Length Dosing, 92.1, kg, 02/29/24 9:24:00 EST, Weight Dosing Start Date: 05/09/24 Status: Ordered Quantity: 30.0 Unit: mL Repeat number: 5 Start: 01-13-2021 Lantus Solosta r Pen 100 units/mL subcutaneous solution 30 unit(s), SubCutaneous, Daily, Refills(s) 0, Blood glucose Start Date: 01/13/21 Status: Ordered inject 100 [IU] by s ubcutaneous injection in the morning Lantus SoloStar 100 UNIT/ML pen Inject under the skin in the morning. Active inject 10 [IU] by gonzalez bcutaneous injection twice daily Lantus SoloStar 100 UNIT/ML Subcutaneous Solution Pen-injector 10 units BID Quantity: 0 Refills: 0 Ordered: 21-Jul-2017 DO Active 3 ml insulin lispro 100 unt/ml pen injector (10 sources) Insulin Analog Start: 05-09-2024 Insulin Lispro KwikPen 100 units/mL injectable solution See Instructions, SubCutaneous BIDAC, # 10 mL, Refills(s) 1, Pharmacy: [facility], 160, cm, 02/29/24 9:24:00 EST, Height/Length Dosing, 92.1, kg, 02/29/24 9:24:00 EST, Weight Dosing Start Date: 05/09/24 Status: Ordered Quantity: 10.0 Unit: mL Repeat number: 2 Start: 01-13-2021 Insulin Lispro KwikPen 100 units/mL injectable solution SubCutaneous, BIDAC, Refills(s) 0, Blood glucose Start Date: 01/13/21 Status: Ordered HumaLOG KwikPen 100 UNIT/ML Subcutaneous Solution Pen-injector INJECT SUBCUTANEOUSLY DIRECTED. Quantity: 0 Refills: 0 Ordered: 21-Jul-2017 DO Active insulin lispro (HumaLOG) 100 UNIT/ML injection (20 sources) insulin lispro ( HumaLOG) 100 UNIT/ML injection Inject under the skin in the morning and at noon and in the evening. Inject with meals. Active insulin lispro ( HumaLOG) 100 UNIT/ML injection Inject under the skin 3 (three) times a day with meals. Active insulin lispro ( HumaLOG) 100 UNIT/ML injection Inject under the skin 3 (three) times a day with meals. 0 Active Insulin Lispro KwikPen 100 units/mL injectable solution (1 source) Start: 01-13-2021 Insulin Lispro KwikPen 100 units/mL injectable solution SubCutaneous, BIDAC, Refills(s) 0, Blood glucose Start Date: 01/13/21 Status: Ordered lisinopril 5 mg oral tablet (20 sources) Angiotensin Converting Enzyme Inhibitor Start: 07-19-2024 lisinopril 5 MG tabl et 07/19/2024 Active Start: 05-09-2024 take 2.5 mg by mouth once daily lisinopril 5 mg Tab 2.5 mg = 0.5 tab(s), Oral, Daily, # 90 tab(s), Refills(s) 3, Pharmacy: [facility], 160, cm, 02/29/24 9:24:00 EST, Height/Length Dosing, 92.1, kg, 02/29/24 9:24:00 EST, Weight Dosing Start Date: 05/09/24 Status: Ordered Quantity: 90.0 Unit: tab(s) Repeat number: 4 Start: 10-18-2023 take 2.5 mg by mouth once daily lisinopril 5 mg Tab 2.5 mg = 0.5 tab(s), Oral, Daily, # 90 tab(s), Refills(s) 3, Pharmacy: [facility], [facility] 160, cm, 08/31/23 9:10:00 EDT, Height/Length Dosing, 88.4, kg, 08/31/23 9:10:00 EDT, Weight Dosing Start Date: 10/18/23 Status: Ordered Start: 04-27-2023 lisinopril 5 M G tablet Start: 01-25-2023 take 2.5 mg by mouth once daily lisinopril 5 mg Tab 2.5 mg = 0.5 tab(s), Oral, Daily, # 90 tab(s), Refills(s) 3, Pharmacy: [facility], 160, cm, 12/08/22 10:18:00 EDT, Height/Length Dosing, 90.9, kg, 12/08/22 10:18:00 EDT, Weight Dosing Start Date: 01/25/23 Status: Ordered Start: 01-13-2021 take 2.5 mg by mouth once daily lisinopril 5 mg Tab 2.5 mg = 0.5 tab(s), Oral, Daily, Refills(s) 0, High blood pressure Start Date: 01/13/21 Status: Ordered End: 09-29-2024 take 1 tablet by mouth once daily lisinopril 2.5 MG tablet Take 1 tablet every day by oral route for 90 days. 09/29/2024 Discontinued (Dose adjustment) metFORMIN hydrochloride 850 mg oral tablet (20 sources) Biguanide Start: 08-31-2023 take 1 tablet by mouth once daily metformin 850 mg Tab 850 mg = 1 tab(s), Oral, Daily, # 90 tab(s), Refills(s) 3, Pharmacy: [facility], 160, cm, 02/29/24 9:24:00 EST, Height/Length Dosing, 92.1, kg, 02/29/24 9:24:00 EST, Weight Dosing Start Date: 05/09/24 Status: Ordered Quantity: 90.0 Unit: tab(s) Repeat number: 4 Start: 01-13-2021 take 1 tablet by mariluz th twice daily metformin 850 mg oral tablet 850 mg = 1 tab(s), Oral, BID, Refills(s) 0, Blood glucose Start Date: 01/13/21 Status: Ordered montelukast 10 mg oral tablet (20 sources) Leukotriene Receptor Antagonist Start: 07-09-2023 montelukast (Singulair) 10 MG tablet Take 10 mg by mouth 07/09/2023 Active Multiple Vitamin (multivitamin) capsule (20 sources) take 1 capsule by mouth once daily Multiple Vitamin (multivitamin) capsule Take 1 capsule by mouth Daily Active take 1 capsule by mouth in the m orning Multiple Vitamin (multivitamin) capsule Take 1 capsule by mouth in the morning. Active take 1 capsule by mouth in the m orning Multiple Vitamin (multivitamin) capsule Take 1 capsule by mouth in the morning. 0 Active nitrofurantoin, macrocrystals 25 mg / nitrofurantoin, monohydrate 75 mg oral capsule (1 source) Nitrofuran Antibacterial Start: 06-30-2022 End: 07-07-2022 take 1 capsule by mouth twice daily Macrobid 100 mg Cap 100 mg = 1 cap(s), Oral, BID, X 7 day(s), # 14 cap(s), Refills(s) 0, Pharmacy: [facility]/pharmacy #[id number], 162, cm, 06/30/22 15:22:00 EDT, Height/Length Dosing, 93, kg, 06/30/22 15:22:00 EDT, Weight Dosing Start Date: 06/30/22 Stop Date: 07/07/22 Status: Ordered Ozempic, 1 MG/DOSE, 4 MG/3ML solution pen-injector (20 sources) Ozempic, 1 MG/DOSE, 4 MG/3ML solution pen-injector Active Ozempic, 1 MG/DO SE, 4 MG/3ML solution pen-injector as directed Subcutaneous Active Ozempic, 1 MG/DO SE, 4 MG/3ML solution pen-injector as directed Subcutaneous 0 Active pantoprazole 40 mg delayed release oral tablet (20 sources) Proton Pump Inhibitor Start: 01-13-2021 take 1 tablet by mouth once daily Pantoprazole [address] Tab 40 mg = 1 tab(s), Oral, Daily, # 90 tab(s), Refills(s) 4, [facility], 160, cm, 02/29/24 9:24:00 EST, Height/Length Dosing, 92.1, kg, 02/29/24 9:24:00 EST, Weight Dosing Start Date: 05/09/24 Status: Ordered Quantity: 90.0 Unit: tab(s) Repeat number: 5 rosuvastatin calcium 20 mg oral tablet (20 sources) HMG-CoA Reductase Inhibitor Start: 06-02-2024 take 1 tablet by mouth once daily rosuvastatin 20 mg Tab See Instructions, TAKE 1 TABLET BY MOUTH DAILY, # 90 tab(s), Refills(s) 3, Pharmacy: [facility]/pharmacy #[id number], 160, cm, 08/31/24 11:11:00 EDT, Height/Length Dosing, 89.4, kg, 08/31/24 11:11:00 EDT, Weight Dosing Start Date: 08/31/24 Status: Ordered Quantity: 90.0 Unit: tab(s) Repeat number: 4 Start: 01-13-2021 End: 07-07-2024 take 1 tablet by mouth once daily at bedtime rosuvastatin 5 mg Tab 5 mg = 1 tab(s), Oral, Once a day (at bedtime), # 90 tab(s), Refills(s) 3, Pharmacy: [facility], 160, cm, 02/29/24 9:24:00 EST, Height/Length Dosing, 92.1, kg, 02/29/24 9:24:00 EST, Weight Dosing Start Date: 05/09/24 Status: Ordered 1 mg dose 1.5 ml semaglutide 1.34 mg/ml pen injector (4 sources) Start: 08-04-2022 End: 05-12-2023 inject 1 mg by subcutaneous injection every week Ozempic 2 mg/1.5 mL (1 mg dose) subcutaneous solution 1 mg, SubCutaneous, qWeek, 9 mL, Refill(s) 3, [facility], 160, cm, 12/08/22 10:18:00 EDT, Height/Length Dosing, 90.9, kg, 12/08/22 10:18:00 EDT, Weight Dosing Start Date: 01/25/23 Status: Ordered sertraline 50 mg oral tablet (20 sources) Serotonin Reuptake Inhibitor Start: 01-13-2021 take 1 tablet by mouth once daily sertraline 50 mg Tab 50 mg = 1 tab(s), Oral, Daily, # 90 tab(s), Refills(s) 3, Pharmacy: [facility], 160, cm, 02/29/24 9:24:00 EST, Height/Length Dosing, 92.1, kg, 02/29/24 9:24:00 EST, Weight Dosing Start Date: 05/09/24 Status: Ordered Quantity: 90.0 Unit: tab(s) Repeat number: 4 Sertraline HCl - 50 MG Oral Tablet Quantity: 0 Refills: 0 Ordered: 12-Apr-2018 DO Active Reclast (20 sources) Bisphosphonate Start: 12-16-2023 Reclast See In structions, Refill(s) 0, gets IV once a year Start Date: 12/16/23 Status: Ordered Repeat number: 1 Start: 12-16-2023 Reclast See In structions, Refill(s) 0, gets IV once a year Start Date: 12/16/23 Status: Ordered Start: 12-16-2023 Reclast mg, IV , Once, Refill(s) 0, every 6 month Start Date: 12/16/23 Status: Ordered zoledronic acid (Reclast) 5 MG/100ML solution Infuse 5 mg into a venous catheter 1 (one) time Active Completed/Discontinued Medications Medication Drug Class(es) Dates Sig (Normalized) Sig (Original) Calcium Carbonate (3 sources) Tums E-X 750 LÁZARO W TAKE DIRECTED. Quantity: 0 Refills: 0 Ordered: 21-Jul-2017 DO Active calcium carbonate 298 mg / magnesium chloride 596 mg delayed release oral tablet (5 sources) Start: 04-27-2024 End: 11-03-2024 take 1 tablet by mouth twice daily Slow-Mag 71.5-119 MG tablet delayed-release TAKE 1 TAB BY MOUTH TWICE DAILY X1 WEEK BEFORE & AFTER RECLAST INFUSION. STOP & CALL IF DIARRHEA 04/27/2024 11/03/2024 Discontinued 60 actuat exenatide 0.005 mg/actuat pen injector [...] Classification Problem Date Documented Da te Episodic/Chronic Acquired foot deformities (20 sources) Hallux valgus; Translations: [Hallux valgus (acquired), unspecified foot] Onset: 4 06-17-2023 Chronic Chronic kidney disease (8 sources) Chronic kidney disease stage 4; Translations: [Chronic kidney disease stage 2] 06-30-2022 Chronic Comment on above: Added per Dr. Krishna gracia response and outpatient cdi policy based on: Problem list: Chronic kidney disease stage 4, DM type 2 causing CKD stage 4 Labs: 01/13/2021 eGFR 55, 08/31/2023 eGFR 60 08/18/2023 nephrology consult- [id number] hypertensive heart and chronic kidney disease without heart failure, with stage 1 through stage 4 chronic kidney disease or unspecified chronic kidney disease, e11.21 type 2 diabetes mellitus with diabetic nephrology, N18.32 chronic kidney disease stage 3b Coronary atherosclerosis and other heart disease (7 sources) Coronary arteriosclerosis 03-01-2023 Chronic Deficiency and other anemia (2 sources) Anemia of chronic disease 08-30-2024 Chronic Comment on above: Added per Dr. Krishna gracia response and outpatient cdi policy based on: Problem list- Anemia unspecified, Chronic kidney disease stage 4 Labs: 01/13/2021 Hgb 11.8, 08/31/2023 Hgb 11.7 Diabetes mellitus with complications (20 sources) Type 2 diabetes mellitus with diabetic neuropathy, unspecified; Translations: [Neuropathy due to diabetes mellitus] Onset: Chronic Comment on above: Linked per outpatien t CDI policy Diabetes mellitus without complication (13 sources) Diabetes mellitus; Translations: [Type 2 diabetes mellitus] 01-13-2021 Chronic Disorders of lipid metabolism (15 sources) Hyperlipidemia; Translations: [Dyslipidemia] Onset: 9 06-30-2022 Chronic E Codes: Fall (7 sources) Fall 04-13-2023 Esophageal disorders (20 sources) Gastroesophageal reflux disease; Translations: [Gastro-esophageal reflux disease without esophagitis] Onset: 5 07-09-2023 Chronic Essential hypertension (10 sources) Hypertensive disorder; Translations: [Essential hypertension] 01-13-2021 Chronic Fracture of upper limb (1 source) Closed fracture dislocation shoulder joint; Translations: [Fracture of right shoulder girdle, part unspecified, subsequent encounter for fracture with routine healing] 05-12-2023 Episodic Immunity disorders (7 sources) 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 Neoplasms of unspecified nature or uncertain behavior (2 sources) Neoplastic disease; Translations: [Neoplasm of unspecified behavior of bone, soft tissue, and skin] 09-29-2024 Episodic Nutritional deficiencies (2 sources) Vitamin D deficiency; Translations: [Vitamin D deficiency, unspecified] 06-07-2024 Chronic Occlusion or stenosis of precerebral arteries (8 sources) Left carotid artery occlusion 06-30-2022 Chronic Osteoarthritis (3 sources) Osteoarthritis; Translations: [Osteoarthrosis, unspecified whether generalized or localized, site unspecified] Chronic Osteoporosis (1 source) Age-related osteoporosis without current pathological fracture; Translations: [Age-related osteoporosis without current pathological fracture] Onset: 5 Chronic Other aftercare (2 sources) Long-term current use of insulin; 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] 06-07-2024 Episodic Other aftercare (2 sources) Removal of sutures done; Translations: [Encounter for removal of sutures] 11-20-2024 Episodic Other circulatory disease (8 sources) Raynaud's phenomenon 06-30-2022 Chronic Other circulatory disease (2 sources) Spider nevus; Translations: [Nevus, non-neoplastic] 09-29-2024 Episodic Other connective tissue disease (2 sources) Presence of left artificial knee joint; Translations: [Presence of left artificial knee joint] Onset: 8 Chronic Other connective tissue disease (3 sources) H/O: musculoskeletal disease; Translations: [Personal history of other musculoskeletal disorders] Episodic Other connective tissue disease (1 source) Repeated falls; Translations: [REPEATED FALLS] Onset: 3 Episodic Other connective tissue disease (8 sources) History of osteoporosis 01-13-2021 Episodic Other connective tissue disease (2 sources) Pain in left foot; Translations: [Pain in left foot] 07-07-2024 Episodic Other connective tissue disease (2 sources) Pain in right foot; Translations: [Pain in right foot] 07-07-2024 Episodic Other eye disorders (8 sources) Ptosis of eyelid 01-13-2021 Episodic Other [...] nonalcoholic liver disease] Chronic Other liver diseases (8 sources) Steatosis of liver 06-30-2022 Chronic Other [...] GAIT AND MOBILITY] Onset: 3 Episodic Other non-epithelial cancer of skin (4 sources) History of malignant basal cell neoplasm of skin; Translations: [Personal history of other malignant neoplasm of skin] 09-29-2024 Episodic Other non-traumatic joint disorders (3 sources) Polyarthropathy; Translations: [Unspecified polyarthropathy or polyarthritis, site unspecified] Chronic Other nutritional; endocrine; and metabolic disorders (7 sources) Morbid obesity 03-01-2023 Chronic Comment on above: added per 02/24/2023 query response. Other nutritional; endocrine; and metabolic disorders (6 sources) Body mass index 30+ - obesity 12-16-2023 Chronic Other nutritional; endocrine; and metabolic disorders (2 sources) Obesity caused by energy imbalance; Translations: [Class 1 obesity due to excess calories with serious comorbidity and body mass index (BMI) of 34.0 to 34.9 in adult] 06-07-2024 Chronic Other nutritional; endocrine; and metabolic disorders [...] conditions (not mental disorders or infectious disease) (5 sources) Patient encounter status; Translations: [Special screening for malignant neoplasms of colon] 06-07-2024 Episodic Other skin disorders (2 sources) Lentiginosis; Translations: [Other melanin hyperpigmentation] 09-29-2024 Episodic Other skin disorders (2 sources) Seborrheic keratosis; Translations: [Other seborrheic keratosis] 09-29-2024 Episodic Other skin disorders (2 sources) Actinic keratosis; Translations: [Actinic keratosis] 09-29-2024 Episodic Residual codes; unclassified (12 sources) Obstructive sleep apnea syndrome 06-30-2022 Chronic Rheumatoid arthritis and related disease (13 sources) Rheumatoid arthritis 01-13-2021 Chronic Screening and history of mental health and substance abuse codes (3 sources) H/O: depression; Translations: [Personal history of other mental disorders] Episodic Spondylosis; intervertebral disc disorders; other back problems (3 sources) Disorder of sacrum; Translations: [Disorders of sacrum] Episodic Unclassified (7 sources) Long-term current use of insulin 02-24-2023 Comment on above: Current Medication L ist includes insulin glargine and insulin lispro. added per OP CDI policy. Past or Other Problems Problem Classification Problem Date Documented Date Episodic/Chronic Acquired foot deformities (20 sources) Acquired equinus deformity of foot; Translations: [Other acquired deformities of unspecified foot] Onset: 06-17-2023 06-17-2023 Episodic Deficiency and other anemia (6 sources) Anemia Onset: 03-30-2019 06-30-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 Other connective tissue disease (4 sources) Other muscle spasm; Translations: [OTHER MUSCLE SPASM] Onset: 11-14-2021 Episodic Other diseases of kidney and ureters (5 sources) Renal insufficiency Onset: 11-02-2018 07-09-2023 Episodic Other diseases of veins and lymphatics (18 sources) Peripheral venous insufficiency; Translations: [Venous insufficiency (chronic) (peripheral)] Onset: 06-17-2023 06-17-2023 Episodic Other liver diseases (7 sources) Elevated liver enzymes level Onset: 11-02-2018 07-09-2023 Episodic Other lower respiratory disease (5 sources) Dyspnea Onset: 03-30-2019 07-09-2023 Episodic Other skin disorders (20 sources) Callosity; Translations: [Corns and callosities] Onset: 06-17-2023 06-17-2023 Episodic Results Test Name Value Interpretation Reference Range Facil ity Reminderson 11-09-2024 Reminders Reminders - From: Cindy Yadav MA To: [facility] - Appointment Reminders; Sent: 06/02/2024 12:42:50 EST Show up: 11/03/2024 07:00:00 EDT Subject: Appt Reminder Due Date/Time: 12/17/2024 12:42:00 EDT Reminder/Recall Pt needs scheduled for 6m follow up - From: Mayuri Stevenson ([facility] - Appointment Reminders) To: Mayuri Stevenson; Sent: 11/09/2024 09:02:39 EDT Show up: 11/09/2024 09:02:00 EDT Subject: done pt scheduled 12/15 [facility] No Panel Informationon 11-06 Complexity: Intermediate Final length (cm): 3.3 Reason [...] uncontrollable bleeding, or complications. Dressing type: bandage [facility] Lesion length (cm): 0.7 Lesion width (cm): [...] ml Estimated blood loss: < 1.0 ml [facility] Orders Onlyon 10-11-2024 Orders Only [id number] Lj Doll 1955 F Date Provider Department Center 10/11/2024 [facility] Family History Problem Relation Age of Onset Coronary artery disease Mother Coronary artery disease Father Brain cancer Brother Family Status - Relation Status Age at Mother Father Brother Normal [facility] No Panel Informationon 09-29 Type of biopsy: tangential Informed consent: discussed [...] Photo taken Amount of lidocaine used: 1cc [facility] PVR Lower EXT Complete Bi laton 09-12-2024 PVR Lower EXT Complete Bilat Exam Date/Time: 09/11/2024 15:07 EDT Reason for Exam: I77.9;Leg pain Report IMPRESSION: NO EVIDENCE OF SIGNIFICANT ARTERIAL STENOTIC DISEASE INVOLVING THE RIGHT AND LEFT LEGS. CLINICAL HISTORY: Leg pain, I77.9. Diabetes. COMMENT: On the right, the brachial systolic pressure is 135, the high thigh pressure is 198, the low thigh pressure is 1 7, the calf pressure is 159, the posterior tibial ankle pressure is 161, the dorsalis pedis ankle pressure is 139, and the digit pressure is 127. The high thigh-brachial index is 1.42, with normal 1.0 or greater. The posterior tibial ankle-brachial index is 1.16 and the dorsalis pedis ankle-brachial index is 1.0, with normal 1.0 or greater. The toe-brachial index is 0.91, with normal 0.7 or greater. The plethysmography waveforms are normal. On the left, the brachial systolic pressure is 139, the high thigh pressure is 189, the low thigh pressure is 170, the calf pressure is 157, the posterior tibial ankle pressure is 149, the dorsalis pedis ankle pressure is 135, and the digit pressure is 104. The high thigh-brachial index is 1.36, with normal 1.0 or greater. The posterior tibial ankle-brachial index is 1.07 and the dorsalis pedis ankle-brachial index is 0.97, with normal 1.0 or greater. The toe-brachial index is 0.75, with normal 0.7 or greater. The plethysmography waveforms are normal. Ordering Provider: Arley Keller FINAL REPORT Dictated: 09/12/2024 2:04 pm Alex Roberts M.D. Signed (Electronic Signature): 09/12/2024 2:04 pm Signed by: Alex Roberts M.D. Transcribed by: TIAN Technologist: PIPE Leyva [facility] Ambulatory Visit Summaryon 0 08-31-2024 Ambulatory Visit Summary Ambulatory Visit Summary LJ DOLL :1955 Visit Date:08/31/2024 Ambulatory Visit Instructions Your Diagnosis Anemia of chronic disease 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 RA (rheumatoid arthritis) Long-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 Major depressive disorder in remission CAD in chilkat artery Disorder of arteries and arterioles, unspecified Your Care Team Attending Physician - Arley Keller MD Primary Care Physician - Arley Keller MD This Is Your Medications List Misc Prescription (fresstyle denny 3+ sensors) etanercept (Enbrel Prefilled Syringe 50 mg/mL subcutaneous solution) hydroxychloroquine (hydroxychloroquine 200 mg Tab) rosuvastatin (rosuvastatin 20 mg Tab) semaglutide (Ozempic (1 mg dose) 4 mg/3 mL subcutaneous solution) Contact prescribing physician if questions or concerns Misc Prescription (CPAP supplies - Mask, tubing, connectors) amitriptyline (amitriptyline 25 mg Tab) aspirin calcium-vitamin D carvedilol (carvedilol 3.125 mg Tab) furosemide (furosemide 20 mg Tab) gabapentin (gabapentin 100 mg Cap) insulin glargine (Lantus Solostar Pen 100 units/mL subcutaneous solution) insulin lispro (Insulin Lispro KwikPen 100 units/mL injectable solution) lisinopril (lisinopril 5 mg Tab) metformin (metformin 850 mg Tab) montelukast (montelukast 10 mg Tab) multivitamin with minerals (Celebrate Multivitamin oral capsule) pantoprazole (Pantoprazole [address] Tab) sertraline (sertraline 50 mg Tab) zoledronic acid (Reclast) [Image Removed: STOP]Stop taking these medications Misc Prescription (fresstyle denny 3 sensors) Procedures Performed Blepharoplasty of upper eyelid (01/20/2021), History of placement of stent for coronary artery disease (2016), Appendectomy, Arthroplasty of the hip, Arthroplasty of the knee, Carpal tunnel release, Excision of ganglion cyst, Release of trigger finger, Total hysterectomy. Discharge Vitals Temperature (Oral) 36.4 ???C Heart Rate (Peripheral) 66 Respiratory Rate 20 Blood Pressure 116/78 Height 160.0 cm Height 63 in Weight 89.4 kg Weight 197.093 lb BMI 34.92 What to do next Scheduled Follow-Up Appointments Wednesday 1:00 PM EDT Where: [address] [address]- You Need to Complete the Following US PVR Lower EXT Complete Bilat, 08/31/24, Routine, Order for future visit, Transport Mode: Ambulatory, Reason: Leg pain, No, Disorder of arteries and arterioles, unspecified, pp_set_radiology_sub specialty, Required & Missing, [facility] Someone Will Contact You Regarding These Appointments [facility] [place] External Ambulatory Referral, Rheumatology, 08/31/24 11:45:00 EDT, Anemia of chronic disease 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 RA (rheumatoid arthritis) Long-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 Medications What How Much When Why Instructions New Misc Prescription (fresstyle denny 3+ sensors) See instructions Refills: 4 to check BS e11.22 Pickup at [facility]/pharmacy #[id number] Unchanged etanercept (Enbrel Prefilled Syringe 50 mg/ mL subcutaneous solution) See instructions INJECT 1 SYRINGE SUBCUTANEOUSLY WEEKLY Pickup at [facility]/pharmacy #[id number] Unchanged hydroxychloroquine (hydroxychloroquine 200 mg Tab) See instructions TAKE 1 TABLET BY MOUTH TWICE DAILY Pickup at [facility]/pharmacy #[id number] Unchanged rosuvastatin (rosuvastatin 20 mg Tab) See instructions TAKE 1 TABLET BY MOUTH DAILY Pickup at [facility]/pharmacy #[id number] Unchanged semaglutide (Ozempic (1 mg dose) 4 mg/ 3 mL subcutaneous solution) See instructions INJECT SUBCUTANEOUSLY 1 MG EVERY WEEK Pickup at [facility]/pharmacy #[id number] Unchanged amitriptyline (amitriptyline 25 mg Tab) See instructions TAKE 1 TABLET BY MOUTH AT BEDTIME Contact prescribing physician if questions or concerns Unchanged aspirin 81 Milligram Every day Contact prescribing physician if questions or concerns Unchanged calcium-vitamin D 1 TAB By Mouth Every day Contact prescribing physician if questions or concerns Unchanged carvedilol (carvedilol 3.125 mg Tab) 1 Tablets By Mouth 2 times a day Contact prescribing physician if questions or concerns Unchanged furosemide (furosemide 20 mg Tab) 1 Tablets By Mouth Every day Contact prescribing physician if questions or concerns Unchanged gabapentin (gabapentin 100 mg Cap) See instructions TAKE 2 CAPSULES BY MOUTH AT BEDTIME Contact prescribing physician if questions or concerns Unchanged insulin glargine (Lantus Solostar Pen 100 units/ mL subcutaneous solution) 20 Units Subcutaneous Every day Contact prescribing physician if questions or concerns Unchanged insulin lispro (Insulin Lispro KwikPen 100 units/ mL injectable solution) See instructions SubCutaneous BIDAC Contact prescribing physician if questions or concerns Unchanged lisinopril (lisinopril 5 mg Tab) 0.5 Tablets By Mout (more content not included)... Normal [facility] CBC w/ Auto Diffon 5 Basophil Absolute 0.1 E9/L Normal 0.0-0.2 [facility] Comment on above: Performed By: #### 2 [id number] #### [facility] [address] [place] [address] Basophils/100 WBC (Bld) 1.1 % Normal 0.0-2.0 [facility] Comment on above: Performed By: #### 2 [id number] #### [facility] [address] [place] [address] Eos Absolute 0.3 E9/L Normal 0.0-0.5 [facility] Comment on above: Performed By: #### 2 [id number] #### [facility] [address] [place] [address] Eosinophils/100 WBC (Bld) 3.2 % Normal 0.0-8.0 [facility] Comment on above: Performed By: #### 2 [id number] #### [facility] [address] [place] [address] Erythrocyte distribution width (RBC) [Ratio] 14.3 % High 10.9-14.2 [facility] Comment on above: Performed By: #### 2 [id number] #### [facility] [address] [place] [address] Hematocrit (Bld) [Volume fraction] 40.2 % Normal 34.0-46.0 [facility] Comment on above: Performed By: #### 2 [id number] #### [facility] [address] [place] [address] Hemoglobin (Bld) [Mass/Vol] 13.3 g/dL Normal 12.0-16.0 [facility] Comment on above: Performed By: #### 2 [id number] #### [facility] [address] [place] [address] Lymph Absolute 2.8 E9/L Normal 1.0-4.0 [facility] Comment on above: Performed By: #### 2 [id number] #### [facility] [address] [place] [address] Lymphocytes/100 WBC (Bld) 30.6 % Normal 14.0-50.0 [facility] Comment on above: Performed By: #### 2 [id number] #### [facility] [address] [place] [address] MCH (RBC) [Entitic mass] 28.6 pg Normal 27.0-34.0 [facility] Comment on above: Performed By: #### 2 [id number] #### [facility] [address] [place] [address] MCHC (RBC) [Mass/Vol] 33.1 g/dL Normal 31.4-36.0 [facility] Comment on above: Performed By: #### 2 [id number] #### [facility] [address] [place] [address] MCV (RBC) [Entitic vol] 86.3 fL Normal 80.0-100.0 [facility] Comment on above: Performed By: #### 2 [id number] #### [facility] [address] [place] [address] [place] Absolute 0.9 E9/L Normal 0.2-1.0 [facility] Comment on above: Performed By: #### 2 [id number] #### [facility] [address] [place] [address] Monocytes/100 WBC (Bld) 9.3 % Normal 4.0-14.0 [facility] Comment on above: Performed By: #### 2 [id number] #### [facility] [address] [place] [address] Neutro Absolute 5.1 E9/L Normal 2.0-7.5 [facility] Comment on above: Performed By: #### 2 [id number] #### [facility] [address] [place] [address] Neutro Auto 55.8 % Normal 36.0-75.0 [facility] Comment on above: Performed By: #### 2 [id number] #### [facility] [address] [place] [address] Platelet 298.0 E9/L Normal 150.0-500.0 [facility] Comment on above: Performed By: #### 2 [id number] #### [facility] [address] [place] [address] Platelet mean volume (Bld) [Entitic vol] 7.4 fL Normal 6.4-10.8 [facility] Comment on above: Performed By: #### 2 [id number] #### [facility] [address] [place] [address] RBC 4.7 E12/L Normal 4.3-5.9 [facility] Comment on above: Performed By: #### 2 [id number] #### [facility] [address] [place] [address] WBC 9.2 E9/L Normal 4.0-11.0 [facility] Comment on above: Performed By: #### 2 [id number] #### [facility] [address] [place] [address] CHEMISTRYOrdered By: SYSTEM SYSTEM on 08-31-2024 Albumin [Mass/Vol] 4.5 g/dL Normal 3.3 - 5.0 gm/dL R emisol Chem Albumin DL <= 20 mg/L (U) [Mass/Vol] 4.8 mg/dL High 0.0 - 1.9 mg/dL Remisol Chem Albumin/Creatinine DL <= 20 mg/L (U) [Mass ratio] 155.8 mg/gm Cr High 0.0 - 30.0 mg/gm Cr Remisol Chem Comment on above: Interpretive Data: 3 0-300 mg/g Cr indicates an increased risk for diabetic nephropathy. >300 mg/g Cr is consistent with clinical nephropathy. Albumin/Globulin [Mass ratio] 1.5 {ratio} Normal 1.1 - 2.2 Remisol Chem ALP [Catalytic activity/Vol] 90 [iU]/d Normal 21 - 98 Int._Unit/L Remisol Chem ALT No additional P-5'-P [Catalytic activity/Vol] 32 [iU]/d Normal 6 - 46 Int._Unit/L Remisol Chem Anion gap [Moles/Vol] 13 mmol/L Normal 6 - 16 mEq/L Remisol Chem AST [Catalytic activity/Vol] 33 [iU]/d Normal 5 - 43 Int._Unit/L Remisol Chem Bilirubin [Mass/Vol] 0.3 mg/dL Normal 0.0 - 1.1 mg/dL Remisol Chem Calcium [Mass/Vol] 9.4 mg/dL Normal 8.9 - 11.1 mg/dL Remisol Chem Chloride [Moles/Vol] 107 mmol/L Normal 101 - 111 mmol/ L Remisol Chem Cholesterol [Mass/Vol] 153 mg/dL Normal 120 - 200 mg/dL Remisol Chem Cholesterol in HDL [Mass/Vol] 66 mg/dL Invalid Interpretation Code Remisol Chem Comment on above: Result Comment: '>= 60 LOW RISK' '<= 40 HIGH RISK' Cholesterol in LDL [Mass/Vol] 63 mg/dL Normal <=129mg/dL Remisol Chem Cholesterol in VLDL [Mass/Vol] 27 mg/dL Normal 7 - 40 mg/dL Remisol Chem CO2 [Moles/Vol] 22 mmol/L Normal 21 - 31 mmol/L Remis ol Chem Creatinine [Mass/Vol] 0.9 mg/dL Normal 0.5 - 1.3 mg/dL Remisol Chem GFR/1.73 sq M.predicted MDRD (S/P/Bld) [Vol rate/Area] 68 mL/min/1.73 m2 Normal >=59mL/min/1.73 m2 Remisol Chem Globulin (S) [Mass/Vol] 3.0 g/dL Normal 1.4 - 4.0 gm/dL Remisol Chem Glucose [Mass/Vol] 136 mg/dL Normal 55 - 199 mg/dL Re misol Chem Potassium [Moles/Vol] 4.3 mmol/L Normal 3.5 - 5.3 mmol/L Remisol Chem Protein [Mass/Vol] 7.5 g/dL Normal 6.0 - 7.8 gm/dL R emisol Chem Sodium [Moles/Vol] 138 mmol/L Normal 135 - 145 mmol/L Remisol Chem Triglyceride [Mass/Vol] 135 mg/dL Normal <=149mg/dL Remisol Chem U Creatinine 30.8 mg/dL Invalid Interpretation Code Remisol Chem Urea nitrogen [Mass/Vol] 22 mg/dL High 5 - 21 mg/dL Remisol Chem Urea nitrogen/Creatinine [Mass ratio] 24 mg/mg High 10 - 20 Remisol Chem CHEMISTRYOrdered By: Melissa Daniels on 08-31-2024 HbA1c (Bld) [Mass fraction] 7.3 % High <=5.9% [place] [facility] ChemAutoSS CMPon 08-31-2024 Albumin [Mass/Vol] 4.5 g/dL Normal 3.3-5.0 [facility] Comment on above: Performed By: #### 2 [id number] #### [facility] [address] [place] [address] Albumin/Globulin [Mass ratio] 1.5 {ratio} Normal 1.1-2.2 [facility] Comment on above: Performed By: #### 2 [id number] #### [facility] [address] [place] [address] Alk Phos 90 Int._Unit/L Normal 21-98 [facility] Comment on above: Performed By: #### 2 [id number] #### [facility] [address] [place] [address] ALT 32 Int._Unit/L Normal 6-46 [facility] Comment on above: Performed By: #### 2 [id number] #### [facility] [address] [place] [address] Anion gap [Moles/Vol] 13 mmol/L Normal 6-16 [facility] Comment on above: Performed By: #### 2 [id number] #### [facility] [address] [place] [address] AST 33 Int._Unit/L Normal 5-43 [facility] Comment on above: Performed By: #### 2 [id number] #### [facility] [address] [place] [address] Bili Total 0.3 mg/dL Normal 0.0-1.1 [facility] Comment on above: Performed By: #### 2 [id number] #### [facility] [address] [place] [address] BUN/Creat Ratio 24 No Units High 10-20 [facility] Comment on above: Performed By: #### 2 [id number] #### [facility] [address] [place] [address] Calcium [Mass/Vol] 9.4 mg/dL Normal 8.9-11.1 [facility] Comment on above: Performed By: #### 2 [id number] #### [facility] [address] [place] [address] Chloride [Moles/Vol] 107 mmol/L Normal 101-111 [facility] Comment on above: Performed By: #### 2 [id number] #### [facility] [address] [place] [address] CO2 [Moles/Vol] 22 mmol/L Normal 21-31 [facility] Comment on above: Performed By: #### 2 [id number] #### [facility] [address] [place] [address] Creatinine [Mass/Vol] 0.9 mg/dL Normal 0.5-1.3 [facility] Comment on above: Performed By: #### 2 [id number] #### [facility] [address] [place] [address] Globulin (S) [Mass/Vol] 3.0 g/dL Normal 1.4-4.0 [facility] Comment on above: Performed By: #### 2 [id number] #### [facility] [address] [place] [address] Glucose [Mass/Vol] 136 mg/dL Normal 55-199 [facility] Comment on above: Performed By: #### 2 [id number] #### [facility] [address] [place] [address] Potassium [Moles/Vol] 4.3 mmol/L Normal 3.5-5.3 [facility] Comment on above: Performed By: #### 2 [id number] #### [facility] [address] [place] [address] Protein [Mass/Vol] 7.5 g/dL Normal 6.0-7.8 [facility] Comment on above: Performed By: #### 2 [id number] #### [facility] [address] [place] [address] Sodium [Moles/Vol] 138 mmol/L Normal 135-145 [facility] Comment on above: Performed By: #### 2 [id number] #### [facility] [address] [place] [address] Urea nitrogen [Mass/Vol] 22 mg/dL High 5-21 [facility] Comment on above: Performed By: #### 2 [id number] #### [facility] [address] [place] [address] Family Medicine Office/Clini c Noteon 08-31-2024 Family Medicine Office/Clinic Note Family Medicine Office/Clinic Note Chief Complaint The patient presents for management of chronic conditions and medication adjustments. HPI Staff 6m medication review Patient is here for follow up on Diabetes. How often are you checking your blood sugars? What are your average readings? 92-98% inline Paresthesias, Ulcerations or sores? no Lisinopril, aspirin, statin therapy? Yes Foot Exam: 07/07/24 Eye Exam: Last A1c: June (7.0) with Dr. Edmondson Hgb A1C %: 6.8 % High (08/31/23 11:08:00) Hgb A1c POC: 5.5 % (02/29/24 10:02:00) Referred to Cardiology @ [facility]. June 02 was her visit with him Knee brace recommended at [facility] due ro effusion of Lt knee. ? Possible re testing for sleep apnea once new insurance active. needs to set this up now Normal Stress Test 06/15/24 (ordered by Cardiology) Questions/Concerns: rosuvastatin 20 mg , Hydroxychloroquine, Ozempic, freestyle lybra plus, Enbrel syringe she is wondering if she can get Shurclick 50 mg she is nervous about using this History of Present Illness - The patient is a 69-year-old female presenting with follow-up for chronic conditions. - She manages type 2 diabetes mellitus with insulin and may require an adjustment in Ozempic dosage as indicated by her primary care provider. - She has rheumatoid arthritis and is currently without a lead burner apprentice; Enbrel is needed for ongoing management. - Her cold feet over the past six months may indicate peripheral artery disease. - The patient has a history of anemia of chronic disease and coronary artery disease. - She is in remission from major depressive disorder. - Her chronic kidney disease is monitored in conjunction with diabetes management. - Discussed vaccinations, including pneumonia and tetanus-diphtheria, which are up-to-date. - Reviewed the patient's history of pneumonia and discussed potential future vaccinations. - Discussed lifestyle modifications, including weight management and risk reduction for cardiovascular disease. Review of Systems PHQ Score Initial Depression Screen Score: 0 SCORE Physical Exam Vitals & Measurements T: 36.4 ???C(Oral) HR: 66(Peripheral) RR: 20 BP: 116/78 SpO2: 98% HT: 160.0 cm HT: 63 in WT: 197.093 lb WT: 89.4 kg BMI: 34.92 General: alert, no acute distress ENMT: oral mucosa moist Cardiovascular: Regular rate and rhythm, normal peripheral perfusion Respiratory: Lungs clear to auscultation, respirations non labored Extremities: no deformity, no trauma, feet are cold Neurological: oriented x 4, level of consciousness appropriate for age, CN II-XII intact, motor strength equal & normal bilaterally, speech normal Abdomen: Soft, Non-tender, Non-distended, + Bowel sounds Assessment/Plan 1. Anemia of chronic disease (D63.8: Anemia in other chronic diseases classified elsewhere) - Monitor hemoglobin levels. - Follow up PRN Ordered: CBC w/ Auto Diff Comprehensive Metabolic Panel [facility] Ambulatory Referral HgbA1c Lipid Panel Urine Microalbumin/Creatin ine Ratio 2. Stage 2 chronic kidney disease (N18.2: Chronic kidney disease, stage 2 (mild)) - Will recheck today Ordered: CBC w/ Auto Diff Comprehensive Metabolic Panel [facility] Amb[facility] Referral HgbA1c Lipid Panel Urine Microalbumin/Creatin ine Ratio 3. 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 Ordered: CBC w/ Auto Diff Comprehensive Metabolic Panel [facility] Amb[facility] Referral HgbA1c Lipid Panel Urine Microalbumin/Creatin ine Ratio 4. RA (rheumatoid arthritis) (M06.9: Rheumatoid arthritis, unspecified) - Refill Enbrel and refer to a lead burner apprentice. Ordered: CBC w/ Auto Diff Comprehensive Metabolic Panel [facility] Amb[facility] Referral HgbA1c Lipid Panel Urine Microalbumin/Creatin ine Ratio 5. Long-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 (Z79.4: 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) - Follows with Endo Ordered: CBC w/ Auto Diff Comprehensive Metabolic Panel [facility] Amb[facility] Referral HgbA1c Lipid Panel Urine Microalbumin/Creatin ine Ratio 6. Major depressive disorder in remission (F32.5: Major depressive disorder, single episode, in full remission) - Monitor mental health. Ordered: CBC w/ Auto Diff Comprehensive Metabolic Panel HgbA1c Lipid Panel Urine Microalbumin/Creatin ine Ratio 7. CAD in chilkat artery (I25.10: Atherosclerotic heart disease of chilkat coronary artery without angina pectoris) - Monitor cardiovascular health. Ordered: CBC w/ Auto Diff Comprehensive Metabolic Panel HgbA1c Lipid Panel Urine Microalbumin/Creatin ine Ratio 8. 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 - Screening showed abnormal readings. Ordered: US PVR Lower EXT Complete Bilat Orders: etanercept, See Instructions, INJEC (more content not included)... Normal [facility] Comment on above: Result Comment: Elec tronically Signed By: Krishna SIMENTAL, Arley Heredia\.br\Date and Time Signed: 08/31/24 11:47 EDT HEMATOLOGYOrdered By: SYSTEM SYSTEM on 08-31-2024 Basophils/100 WBC (Bld) 1.1 % Normal 0.0 - 2.0 % Remisol Heme Basophils/Leukocytes Auto (Bld) [Pure # fraction] 0.1 E9/L Normal 0.0 - 0.2 E9/L Remisol Heme Eosinophils (Bld) [#/Vol] 0.3 E9/L Normal 0.0 - 0.5 E9/L Remisol Heme Eosinophils/100 WBC (Bld) 3.2 % Normal 0.0 - 8.0 % Remisol Heme Erythrocyte distribution width (RBC) [Ratio] 14.3 % High 10.9 - 14.2 % Remisol Heme Hematocrit (Bld) [Volume fraction] 40.2 % Normal 34.0 - 46.0 % Remisol Heme Hemoglobin (Bld) [Mass/Vol] 13.3 g/dL Normal 12.0 - 16.0 gm/dL Remisol Heme Lymphocytes (Bld) [#/Vol] 2.8 E9/L Normal 1.0 - 4.0 E9/L Remisol Heme Lymphocytes/100 WBC (Bld) 30.6 % Normal 14.0 - 50.0 % Remisol Heme MCH (RBC) [Entitic mass] 28.6 pg Normal 27.0 - 34.0 pg Remisol Heme MCHC (RBC) [Mass/Vol] 33.1 g/dL Normal 31.4 - 36.0 gm/dL Remisol Heme MCV (RBC) [Entitic vol] 86.3 fL Normal 80.0 - 100.0 fL Remisol Heme Monocytes (Bld) [#/Vol] 0.9 E9/L Normal 0.2 - 1.0 E9/L Remisol Heme Monocytes/100 WBC (Bld) 9.3 % Normal 4.0 - 14.0 % Remisol Heme Neutrophils (Bld) [#/Vol] 5.1 E9/L Normal 2.0 - 7.5 E9/L Remisol Heme Neutrophils/100 WBC (Bld) 55.8 % Normal 36.0 - 75.0 % Remisol Heme Platelet mean volume (Bld) [Entitic vol] 7.4 fL Normal 6.4 - 10.8 fL Remisol Heme Platelets (Bld) [#/Vol] 298.0 E9/L Normal 150.0 - 500.0 E9/L Remisol Heme RBC (Bld) [#/Vol] 4.7 E12/L Normal 4.3 - 5.9 E12/L Re misol Heme WBC corrected for nucl RBC Auto (Bld) [#/Vol] 9.2 E9/L Normal 4.0 - 11.0 E9/L Remisol Heme [id number] 08-31-2024 HbA1c (Bld) [Mass fraction] 7.3 % High <=5.9 [facility] Comment on above: Performed By: #### 7 [id number] #### [facility] [address] [place] [address] Lipid Panelon 08-31-2024 Cholesterol [Mass/Vol] 153 mg/dL Normal 120-200 [facility] Comment on above: Performed By: #### 2 [id number] #### [facility] [address] [place] [address] Cholesterol in HDL [Mass/Vol] 66 mg/dL Invalid Interpretation Code [facility] Comment on above: Result Comment: '>= 60 LOW RISK' '<= 40 HIGH RISK' Performed By: #### 2 [id number] #### [facility] [address] [place] [address] Cholesterol in LDL [Mass/Vol] 63 mg/dL Normal <=129 [facility] Comment on above: Performed By: #### 2 [id number] #### [facility] [address] [place] [address] Cholesterol in VLDL [Mass/Vol] 27 mg/dL Normal 7-40 [facility] Comment on above: Performed By: #### 2 [id number] #### [facility] [address] [place] [address] Triglyceride [Mass/Vol] 135 mg/dL Normal <=149 [facility] Comment on above: Performed By: #### 2 [id number] #### [facility] [address] [place] [address] U MA/Cr Ratioon 08-31-2024 Microalb/Cr Ratio 155.8 mg/gm Cr High .0-30.0 [facility] Comment on above: Result Comment: 30-3 00 mg/g Cr indicates an increased risk for diabetic nephropathy. >300 mg/g Cr is consistent with clinical nephropathy. Performed By: #### 1 [id number] #### [facility] [address] [place] [address] U Creatinine 30.8 mg/dL Invalid Interpretation Code [facility] Comment on above: Performed By: #### 1 [id number] #### [facility] [address] [place] [address] U Microalb 4.8 mg/dL High 0.0-1.9 [facility] Comment on above: Performed By: #### 1 [id number] #### [facility] [address] [place] [address] eGFRon 08-31-2024 eGFR 68 mL/min/1.73 m2 Normal >=59 [facility] Comment on above: Performed By: #### 1 [id number] #### [facility] [address] [place] [address] Pre-Visit Planningon 025 Pre-Visit Planning Pre-Visit Planning - From: Lorenza HERRING, Ros To: Krishna SIMENTAL, Arley Heredia; Sent: 08/30/2024 13:13:07 EDT Subject: Pre-Visit Planning Due Date/Time: 08/30/2024 13:13:00 EDT Caller Name: LJ DOLL; Caller Number: , Fl Dr. Keller, *Based on your response below, can you please update the chronic problem list and address during this visit if appropriate?* During a pre-visit planning chart review, I noted the following documentation in the medical record: Problem list- Anemia unspecified, Chronic kidney disease stage 4 Labs: 01/13/2021 Hgb 11.8, 08/31/2023 Hgb 11.7 Based on your medical judgment, can you further clarify the type of anemia? - Anemia of chronic disease - Anemia resolved - Other (please specify): I can update the problem list with your specified response if you would like. In responding to this request, please exercise your independent professional judgement. The fact that a question is asked does not imply that any particular answer is desired or expected. If you have any questions, please feel free to contact me at extension [phone]. Thank you! Ros Britt, BENITON, RN, CCM, CCDS, CCDS-O CDI [employer] [address] [address] P: [phone] F: [phone] [email or web address] - From: Arley Keller MD To: Ros Britt RN; Sent: 08/30/2024 13:43:36 EDT Subject: RE: Pre-Visit Planning Caller Name: LJ DOLL; Caller Number: H , M - Anemia of chronic disease Normal [facility] Pre-Visit Planning Pre-Visit Planning - From: Ros Britt RN To: Arley Keller MD; Sent: 08/30/2024 13:06:40 EDT Subject: Pre-Visit Planning Due Date/Time: 08/30/2024 13:06:00 EDT Caller Name: GINO DOLLLY; Caller Number: H , M Fl Dr. Keller, *Based on your response below, can you please update the chronic problem list and address during this visit if appropriate?* During a pre-visit planning chart review, I noted the following documentation in the medical record: Problem list: Chronic kidney disease stage 4, DM type 2 causing CKD stage 4 Labs: 01/13/2021 eGFR 55, 08/31/2023 eGFR 60 08/18/2023 nephrology consult- I1310 hypertensive heart and chronic kidney disease without heart failure, with stage 1 through stage 4 chronic kidney disease or unspecified chronic kidney disease, e11.21 type 2 diabetes mellitus with diabetic nephrology, N18.32 chronic kidney disease stage 3b Based on your medical judgment, can you clarify the stage of chronic kidney disease due to conflicting stages documented? -Chronic kidney disease stage 2 -Chronic kidney disease stage 3a -Chronic Kidney Disease Stage 3b -Other (Please Specify): I can update the problem list with your specified response if you would like. In responding to this request, please exercise your independent professional judgement. The fact that a question is asked does not imply that any particular answer is desired or expected. If you have any questions, please feel free to contact me at extension [phone]. Thank you! Ros Britt, ANGELA, RN, CCM, CCDS, CCDS-O CDI [employer] [address] [address] P: [phone] F: [phone] [email or web address] - From: Krishna SIMENTAL, Arley Heredia To: Lorenza HERRING, Ros; Sent: 08/30/2024 13:11:55 EDT Subject: RE: Pre-Visit Planning Caller Name: LJ DOLL; Caller Number: , -Chronic kidney disease stage 2 Normal [facility] Myocardial Spect Rest/Str ess 1 Dayon 06-19-2024 ND Myocardial Spect Rest/Stress 1 Day Exam Date/Time: 06/15/2024 11:20 EDT Reason for Exam: I25.10;CAD Coronary artery disease Report [address] [address] Nuclear Stress Report Name: LJ DOLL Study Date: 06/15/2024 09:06 AM Patient Location: [facility] Ambulatory(s) [facility] [place] 1955 (M/d/yyyy) Gender: Female Age: 69 yrs Ethnicity: [facility] Reason For Study: I25.10;CAD Coronary artery disease Ordering Physician: Randolph Shah Referring Physician: Randolph Shah Protocol 14877 Pharmacologic Lexiscan stress with Isotope. Study Protocol: One day rest/stress acquisition. Rest Dose Tc99m Cardiolite was administered. Rest Dose: 10.8 mCi IV. Stress Dose Stress Protocol: Lexiscan. Stress Dose: 28.3 mCi IV. Stress Parameters Normal blood pressure response. Stress Symptoms: None. ECG Rest Normal conduction. NSR. Normal ECG. ECG Peak No change from baseline. No significant changes from baseline. No ST-T wave changes from baseline. Arrhythmia No arrhythmias. Image Quality Rest Images: Diagnostic in quality. Stress Images: Diagnostic in quality. SPECT Perfusion Normal rest and stress perfusion. Left Ventricle Report Normal global and regional wall motion in all territories. The LV chamber size is normal. mildly elevated TID at 1.09. Interpretation Summary Normal global and regional wall motion in all territories. mildly elevated TID at 1.09 FINAL REPORT Dictated: 06/15/2024 9:06 am Andrey Kaminski MD Signed (Electronic Signature): 06/19/2024 9:51 am Signed by: Andrey Kaminski MD Transcribed by: [facility] Technologist: GARDENIA Taylor [facility] Glucose (Bld) [Mass/Vol]on 0 06-07-2024 Glucose Blood, POC 193 mg/dL [facility] - Hematology and Cell countson 06-07-2024 HbA1c (Bld) [Mass fraction] 7 % [facility] No Panel Informationon 06-07 Interpretation and review of laboratory results Normal [facility] Heart and Vascular Office/Cl inic Noteon 06-02-2024 Heart and Vascular Office/Clinic Note Heart and Vascular Office/Clinic Note Chief Complaint New Pt Establish Care History of Present Illness The patient is a very pleasant 69-year-old female with past medical history of diabetes, dyslipidemia, coronary artery disease with PCI in 2017 at [facility] with a 3.0 x 32 mm Synergy drug-eluting stent to LAD, which was done in a context of abnormal stress test, ordered in the setting of worsening shortness of breath.. She presents for establishment. Overall, has been doing quite well cardiac mensah. She specifically reports no chest pain or chest tightness. She is chronically short of breath, however, this symptoms have been lasting ever since her PCI procedure, in fact, she had a repeat procedure around 2019 which revealed wide-open stent. No intervention was necessary. Compliant with current medical treatment. Reports no significant side effects. Review of Systems PHQ Score Initial Depression Screen Score: 0 SCORE ROS - Provider Constitutional: no fever, no chills, no fatigue Skin:no rash, no lesions ENMT: no ear pain, no sore throat, no congestion. Respiratory: no shortness of breath, no cough, no wheezing. Cardiovascular: no chest pain, no palpitations, no edema. Gastrointestinal: no nausea, no vomiting, no diarrhea, no GI bleeding. Genitourinary: no dysuria, no frequencyno hematuria Musculoskeletal: no back pain, no trauma. Neurologic: no headache, no dizziness, no numbness, no weakness. Psychiatric: no sleeping problems, no irritability, no mood swings/depression. Heme/Lymph: no bleeding tendency, no bruising tendency, no petechiae, Allergy/Immuno logic: no seasonal allergies, no food allergies, no recurrent infections Physical Exam Vitals & Measurements T: 36.8 ???C(Tympanic) HR: 76(Peripheral) RR: 18 BP: 124/78 SpO2: 97% HT: 63 in HT: 160 cm WT: 87.2 kg WT: 192.243 lb BMI: 34.06 General: alert, no acute distress Neck: Supple, noJVD nocarotid bruit Cardiovascular: regular rate and rhythm, no murmur normal peripheral perfusion Respiratory: Lungs CTAB, respirations non labored Extremities: no edema left lower extremity. no edema right lower extremity Neurological: oriented x 4, LOC appropriate for age, speech normal Skin: Warm, dry, intact- no rash or concerning lesions Assessment/Plan 1. CAD in chilkat artery (I25.10: Atherosclerotic heart disease of chilkat coronary artery without angina pectoris) Will request prior cardiac records from [facility]. The patient seems to be doing quite well cardiac mensah. In the setting of diabetes mellitus, it would be reasonable to order a myocardial perfusion imaging study to rule out ischemia/progression of CAD in this diabetic patient. ECG today. 2. Dyslipidemia (E78.5: Hyperlipidemia, unspecified) LDL is not at goal. I would like to increase Crestor to 20 mg, fasting lipids in 1 month. Follow-up No qualifying data available 6 months, earlier if clinically indicated Problem List/Past Medical History Ongoing Anemia Anterior dislocation of shoulder BMI 34.0-34.9,adult CAD in chilkat artery Carotid occlusion, left Chronic kidney disease (CKD), stage IV (severe) Diabetic neuropathy DM type 2 causing CKD stage 4 Dyslipidemia Dyspnea Fall Gastroesophageal reflux disease Hyperlipidemia Immunodeficiency due to drugs Liver enzymes level above reference range Long-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 Major depressive disorder in remission JESSICA (obstructive sleep apnea) JESSICA on CPAP RA (rheumatoid arthritis) Raynaud's phenomenon Renal insufficiency Steatosis of liver Historical Morbid obesity Rheumatic joint disease Procedure/Surgical History Blepharoplasty of upper eyelid (01/20/2021), History of placement of stent for coronary artery disease (2017), Appendectomy, Arthroplasty of the hip, Arthroplasty of the knee, Carpal tunnel release, Excision of ganglion cyst, Release of trigger finger, Total hysterectomy. Medications amitriptyline 25 mg Tab, See Instructions, 1 refills aspirin, 81 mg, Daily calcium-vitamin D, 1 TAB, Oral, Daily carvedilol 3.125 mg Tab, 3.125 mg= 1 tab(s), Oral, BID, 3 refills Celebrate Multivitamin oral capsule, 1 cap(s), Oral, Daily CPAP supplies - Mask, tubing, connectors, See Instructions, 2 refills Enbrel Prefilled Syringe 50 mg/mL subcutaneous solution, 50 mg, SubCutaneous, qWeek, 3 refills fresstyle denny 3 sensors, See Instructions, 4 refills furosemide 20 mg Tab, 20 mg= 1 tab(s), Oral, Daily, 3 refills gabapentin 100 mg Cap, See Instructions, 1 refills hydroxychloroquine 200 mg Tab, See Instructions, 1 refills Insulin Lispro KwikPen 100 units/mL injectable solution, See Instructions, 1 refills Lantus Solostar Pen 100 units/mL subcutaneous solution, 20 unit(s), SubCutaneous, Daily, 4 refills lisinopril 5 mg Tab, 2.5 mg= 0.5 tab(s), Oral, Daily, 3 refills metformin 850 mg Tab, 850 mg= 1 tab(s), Oral, Daily, 3 refills montelukast 10 mg Tab, See Instructions, 4 refills Ozempic (1 mg dose) 4 m (more content not included)... Normal [facility] Comment on above: Result Comment: Elec tronically Signed By: Pablo SIMENTAL, Randolph De Souza\.br\Date and Time Signed: 06/02/24 11:43 EST Basic Metabolic Panelon 04-06 Anion gap [Moles/Vol] 12.2 mmol/L Normal 6.0-15.0 [facility] Comment on above: Performed By: #### P HOS, BMP, MG #### [facility] [address] [place] [address] [place] Calcium [Mass/Vol] 9.5 mg/dL Normal 8.6-10.3 [facility] Comment on above: Performed By: #### P HOS, BMP, MG #### [facility] [facility] [address] [id number] [place] Chloride [Moles/Vol] 105 mmol/L Normal 98-107 [facility] Comment on above: Performed By: #### P HOS, BMP, MG #### [facility] [address] [id number] [place] CO2 [Moles/Vol] 29.0 mmol/L Normal 21.0-31.0 [facility] Comment on above: Performed By: #### P HOS, BMP, MG #### [facility] [address] [id number] [place] Creatinine [Mass/Vol] 0.95 mg/dL Normal 0.60-1.20 [facility] Comment on above: Performed By: #### P HOS, BMP, MG #### [facility] [address] [id number] [place] GFR/1.73 sq M.predicted MDRD (S/P/Bld) [Vol rate/Area] mL/min/{1.73_m2} Normal [facility] Comment on above: Performed By: #### P HOS, BMP, MG #### [facility] [address] Glucose [Mass/Vol] 141 mg/dL High 70-100 [facility] Comment on above: Result Comment: [place] Glucose Reference Range is dependent on time and content of last meal. Glucose of more than 200 mg/dL in a nonstressed, ambulatory subject supports the diagnosis of Diabetes Mellitus. ADA recommended reference range Performed By: #### P HOS, BMP, MG #### [facility] [address] Potassium [Moles/Vol] 4.2 mmol/L Normal 3.5-5.1 [facility] Comment on above: Performed By: #### P HOS, BMP, MG #### [facility] [address] Sodium [Moles/Vol] 142 mmol/L Normal 136-145 [facility] Comment on above: Performed By: #### P HOS, BMP, MG #### [facility] [address] Urea nitrogen [Mass/Vol] 20 mg/dL Normal 7-25 [facility] Comment on above: Performed By: #### P HOS, BMP, MG #### [facility] [address] Calcium [Mass/volume] in Ser um or PlasmaOrdered By: Fransisco Benavides on 04-25-2024 Calcium [Mass/Vol] Calcium [Mass/volume] in Serum or Plasma 8.6-10.3 [facility] Carbon dioxide, total [Moles /volume] in Serum or PlasmaOrdered By: Fransisco Benavides on 04-25-2024 CO2 [Moles/Vol] Carbon dioxide, total [Moles/volume] in Serum or Plasma 21.0-31.0 [facility] Chloride [Moles/volume] in S melvin or PlasmaOrdered By: Fransisco Benavides on 04-25-2024 Chloride [Moles/Vol] Chloride [Moles/volume] in Serum or Plasma 98-107 [facility] Creatinine [Mass/volume] in Serum or PlasmaOrdered By: Fransisco Benavides on 04-25-2024 Creatinine [Mass/Vol] Creatinine [Mass/volume] in Serum or Plasma 0.60-1.20 [facility] Glucose [Mass/volume] in Ser um or PlasmaOrdered By: Fransisco Benavides on 04-25-2024 Glucose [Mass/Vol] Glucose [Mass/volume] in Serum or Plasma High 70-100 [facility] Comment on above: ADA recommended refe rence rangeRandom Glucose Reference Range is dependent on time and content of last meal. Glucose of more than 200 mg/dL in a nonstressed, ambulatory subject supports the diagnosis of Diabetes Mellitus. Magnesiumon 04-25-2024 Magnesium [Mass/Vol] 1.6 mg/dL Low 1.9-2.7 [facility] Comment on above: Result Comment: PERF ORMED BY: [place] [address] PATHOLOGIST SHUTDOWN COORDINATOR CHACORTA WALKER M.D. Performed By: #### P HOS, BMP, MG #### [address] Magnesium [Mass/volume] in S melvin or PlasmaOrdered By: Fransisco Benavides on 04-25-2024 Magnesium [Mass/Vol] Magnesium [Mass/volume] in Serum or Plasma Low 1.9-2.7 [facility] No Panel InformationOrdered By: Fransisco Benavides on 04-25-2024 Estimated GFR (CKD-EPI) > 60.0 mL/Min [facility] Creatinine Clearance (Chem N/A [facility] Phosphate [Mass/volume] in S melvin or PlasmaOrdered By: Fransisco Benavides on 04-25-2024 Phosphate [Mass/Vol] Phosphate [Mass/volume] in Serum or Plasma 2.5-4.5 [facility] Phosphoruson 04-25-2024 Phosphate [Mass/Vol] 3.1 mg/dL Normal 2.5-4.5 [facility] Comment on above: Performed By: #### P HOS, BMP, MG #### [facility] [address] [id number] [facility] Potassium [Moles/volume] in Serum or PlasmaOrdered By: Fransisco Benavides on 04-25-2024 Potassium [Moles/Vol] Potassium [Moles/volume] in Serum or Plasma 3.5-5.1 [facility] Serum or plasma anion gap de terminationOrdered By: Fransisco Benavides on 04-25-2024 Anion gap [Moles/Vol] Serum or plasma anion gap determination 6.0-15.0 [facility] Sodium [Moles/volume] in Ser um or PlasmaOrdered By: Fransisco Benavides on 04-25-2024 Sodium [Moles/Vol] Sodium [Moles/volume] in Serum or Plasma 136-145 [facility] Urea nitrogen [Mass/volume] in Serum or PlasmaOrdered By: Fransisco Benavides on 04-25-2024 Urea nitrogen [Mass/Vol] Urea nitrogen [Mass/volume] in Serum or Plasma 7-25 [facility] Ambulatory Visit Summaryon 1 04-30-2023 Ambulatory Visit [...] Keller MD This Is Your Medications List [facility] Prescription (CPAP supplies - Mask, tubing, connectors) [...] SIMENTAL, Randolph De Souza Where: [facility] [place] Wednesday 9:15 AM EDT With: Krishna SIMENTAL, Arley Heredia Where: [address] [address]- Wednesday 1:00 PM EDT With: Where: [address] [address]- Medications What How Much When Why Instructions [...] dislocation of shoulder BMI 34.0-34.9,adult 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 Normal [facility] Family Medicine Office/Clini c Noteon 02-29-2024 Family [...] which she underwent a sleep study at [facility] overseen by Dr. Newsome. The exact [...] monitoring of renal function. Ordered: A1c POC 20297 Body Mass Index (BMI) documented 3008F Current [...] to ensure diabetic control. Ordered: A1c POC 49359 Body Mass Index (BMI) documented 3008F Current [...] and response to treatment. Ordered: A1c POC 91227 Body Mass Index (BMI) documented 3008F Current tobacco non-user 1036F Depression Screening Negative 3352F Influenza immunization administered or previously received 4274F Most recent diastolic blood pressure 80-89 mm Hg 3079F Patient screen for fall risk: no falls in last y (more content not included)... Normal [facility] Comment on above: Result Comment: Elec tronically Signed By: Arley Keller MD\.br\Date and Time Signed: 02/29/24 10:44 EST .Interpretation:on HCV Ab IA Ql Comment Invalid Interpretation Code [facility] Comment on above: Result Comment: Not infected with HCV unless early or acute infection is suspected (which may be delayed in an immunocompromised individual), or other evidence exists to indicate HCV infection. Performed at: [facility] [address] [id number] PhD Micah Wilson Performed By: #### 2 [id number] #### [facility] [address] [place] [address] HCV Antibody RFX to [facility] [place] 12-23-2023 HCV IgG IA Ql Non-Reactive Invalid Interpretation Code Non Reactive [facility] Comment on above: Result Comment: Perf ormed at: [facility] [address] [id number] PhD Micah Wilson Performed By: #### 2 [id number] #### [facility] [address] [place] [address] Ambulatory Visit Summaryon 0 12-16-2023 Ambulatory Visit [...] Appointments Wednesday 11:20 AM EDT With: Where: [place] [id number]- Wednesday 9:15 AM EST With: Krishna SIMENTAL, Arley Heredia Where: [address] [address]- Wednesday 1:00 PM EDT With: Where: [address] [address]- You Need to Complete the Following Beta [...] breast cancer, pp_set_radiology_sub specialty, Required & Missing, [facility] Medications What How Much When Why Instructions [...] (Reclast) Int (more content not included)... Normal [facility] Medicine Office/Clini c Noteon 12-16-2023 Family Medicine [...] of clutter to prevent tripping and/or falling. [place] Advance Directives reviewed. Documents scanned into chart. [...] as directed. 5. 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 Normal [facility] Comment on above: Result Comment: Elec tronically Signed By: IRCKY VALDIVIA CNP\.br\Date and Time Signed: 12/16/23 16:18 EDT\.br\Electronically Co-Signed By: Ling Garber\.br\Date and Time Co-Signed: 12/16/23 16:03 EDT Office Visiton 11-08-2023 Follow-up visit [id number] Lj Doll 1955 F Date Provider Department Center 11/08/2023 [facility] [place] [facility] Family History Problem Relation Age of Onset Coronary artery disease Mother Coronary artery disease Father Brain cancer Brother Family Status - Relation Status Age at Mother Father Brother Level of Service:40255 ME OFFICE/OUTPATIENT ESTABLISHED LOW MDM 20 MIN Normal [facility] - Clinical Noteon Retail - Clinical Note [id number] 1.00TIFF Normal [facility] Consultation Noteon 09-17-19 Consultation Note [id number] #1.00TIFF Normal [facility] Ambulatory Visit Summaryon 0 08-31-2023 Ambulatory Visit Summary DEMETRIDeep LJ :1955 Visit Date:08/31/2023 Ambulatory Visit Instructions Your [...] Appointments Wednesday 9:30 AM EDT With: Where: [address] \.br\ Medications\.br\ What How Much When Why [...] Anemia\.br\ Anterior dislocation of shoulder\.br\ 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 This can be done either in [place] ([place] or metric measurements. Note that charts and online BMI calculators are available to help you find your BMI quickly and easily without having to do these calculations yourself.\.br\ To calculate your BMI in [place] ([place] measurements:\.br\ \.br\ 1. \.br\ Measure your [...] usually interpreted in the same way for [facility] CBC w/ Auto Diffon 4 Basophils/100 WBC (Bld) 0.7 % Normal 0.0-2.0 [facility] Comment on above: Performed By: #### 2 [id number] #### [facility] [address] [place] [address] Basophils/Leukocytes Auto (Bld) [Pure # fraction] 0.1 E9/L Normal 0.0-0.2 [facility] Comment on above: Performed By: #### 2 [id number] #### [facility] [address] [place] [address] Eosinophils (Bld) [#/Vol] 0.3 E9/L Normal 0.0-0.5 [facility] Comment on above: Performed By: #### 2 [id number] #### [facility] [address] [place] [address] Eosinophils/100 WBC (Bld) 4.3 % Normal 0.0-8.0 [facility] Comment on above: Performed By: #### 2 [id number] #### [facility] [address] [place] [address] Erythrocyte distribution width (RBC) [Ratio] 13.5 % Normal 10.9-14.2 [facility] Comment on above: Performed By: #### 2 [id number] #### [facility] [address] [place] [address] Hematocrit (Bld) [Volume fraction] 35.6 % Normal 34.0-46.0 [facility] Comment on above: Performed By: #### 2 [id number] #### [facility] [address] [place] [address] Hemoglobin (Bld) [Mass/Vol] 11.7 g/dL Low 12.0-16.0 [facility] Comment on above: Performed By: #### 2 [id number] #### [facility] [address] [place] [address] Lymphocytes (Bld) [#/Vol] 2.4 E9/L Normal 1.0-4.0 [facility] Comment on above: Performed By: #### 2 [id number] #### [facility] [address] [place] [address] Lymphocytes/100 WBC (Bld) 32.9 % Normal 14.0-50.0 [facility] Comment on above: Performed By: #### 2 798011 #### [facility] [address] [place] [address] MCH (RBC) [Entitic mass] 28.4 pg Normal 27.0-34.0 [facility] Comment on above: Performed By: #### 2 104647 #### [facility] [address] [place] [address] MCHC (RBC) [Mass/Vol] 32.8 g/dL Normal 31.4-36.0 [facility] Comment on above: Performed By: #### 2 485371 #### [facility] [address] [place] [address] MCV (RBC) [Entitic vol] 86.7 fL Normal 80.0-100.0 [facility] Comment on above: Performed By: #### 2 100210 #### [facility] [address] [place] [address] Monocytes (Bld) [#/Vol] 0.6 E9/L Normal 0.2-1.0 [facility] Comment on above: Performed By: #### 2 [id number] #### [facility] [address] [place] [address] Neutrophils (Bld) [#/Vol] 4.0 E9/L Normal 2.0-7.5 [facility] Comment on above: Performed By: #### 2 607339 #### [facility] [address] [place] [address] Neutrophils/100 WBC (Bld) 53.8 % Normal 36.0-75.0 [facility] Comment on above: Performed By: #### 2 [id number] #### [facility] [address] [place] [address] Platelet mean volume (Bld) [Entitic vol] 7.9 fL Normal 6.4-10.8 [facility] Comment on above: Performed By: #### 2 [id number] #### [facility] [address] [place] [address] Platelets (Bld) [#/Vol] 279.0 E9/L Normal 150.0-500.0 [facility] Comment on above: Performed By: #### 2 254936 #### [facility] [address] [place] [address] RBC (Bld) [#/Vol] 4.1 E12/L Low 4.3-5.9 [facility] Comment on above: Performed By: #### 2 [id number] #### [facility] [address] [place] [address] WBC corrected for nucl RBC Auto (Bld) [#/Vol] 7.4 E9/L Normal 4.0-11.0 [facility] Comment on above: Performed By: #### 2 [id number] #### [facility] [address] [place] [address] CHEMISTRYOrdered By: SYSTEM SYSTEM on 08-31-2023 Albumin [...] (Bld) [Mass fraction] 6.8 % High <=5.9% [facility] ChemAutoSS CMPon 08-31-2023 Albumin [Mass/Vol] 4.1 g/dL Normal 3.3-5.0 [facility] Comment on above: Performed By: #### 2 993025 #### [facility] [address] [place] [address] Albumin/Globulin (S) [Mass conc ratio] 1.4 Normal 1.1-2.2 [facility] Comment on above: Performed By: #### 2 [id number] #### [facility] [address] [place] [address] ALP [Catalytic activity/Vol] 79 Int._Unit/L Normal 21-98 [facility] Comment on above: Performed By: #### 2 586291 #### [facility] [address] [place] [address] ALT No additional P-5'-P [Catalytic activity/Vol] 26 Int._Unit/L Normal 6-46 [facility] Comment on above: Performed By: #### 2 [id number] #### [facility] [address] [place] [address] Anion gap [Moles/Vol] 10 mmol/L Normal 6-16 [facility] Comment on above: Performed By: #### 2 186012 #### [facility] [address] [place] [address] AST [Catalytic activity/Vol] 23 Int._Unit/L Normal 5-43 [facility] Comment on above: Performed By: #### 2 719121 #### [facility] [address] [place] [address] Bilirubin [Mass/Vol] 0.4 mg/dL Normal 0.0-1.1 [facility] Comment on above: Performed By: #### 2 [id number] #### [facility] [address] [place] [address] Calcium [Mass/Vol] 8.8 mg/dL Low 8.9-11.1 [facility] Comment on above: Performed By: #### 2 [id number] #### [facility] [address] [place] [address] Chloride [Moles/Vol] 107 mmol/L Normal 101-111 [facility] Comment on above: Performed By: #### 2 559338 #### [facility] [address] [place] [address] CO2 [Moles/Vol] 27 mmol/L Normal 21-31 [facility] Comment on above: Performed By: #### 2 723773 #### [facility] [address] [place] [address] Creatinine [Mass/Vol] 1.0 mg/dL Normal 0.5-1.3 [facility] Comment on above: Performed By: #### 2 398221 #### [facility] [address] [place] [address] Globulin (S) [Mass/Vol] 3.0 g/dL Normal 1.4-4.0 [facility] Comment on above: Performed By: #### 2 548281 #### [facility] [address] [place] [address] Glucose [Mass/Vol] 170 mg/dL Normal 55-199 [facility] Comment on above: Performed By: #### 2 068825 #### [facility] [address] [place] [address] Potassium [Moles/Vol] 4.2 mmol/L Normal 3.5-5.3 [facility] Comment on above: Performed By: #### 2 005611 #### [facility] [address] [place] [address] Protein [Mass/Vol] 7.1 g/dL Normal 6.0-7.8 [facility] Comment on above: Performed By: #### 2 [id number] #### [facility] [address] [place] [address] Sodium [Moles/Vol] 140 mmol/L Normal 135-145 [facility] Comment on above: Performed By: #### 2 099126 #### [facility] [address] [place] [address] Urea nitrogen [Mass/Vol] 19 mg/dL Normal 5-21 [facility] Comment on above: Performed By: #### 2 [id number] #### [facility] [address] [place] [address] Urea nitrogen/Creatinine [Mass ratio] 19 No Units Normal 10-20 [facility] Comment on above: Performed By: #### 2 478331 #### [facility] [address] [place] [address] Family Medicine Office/Clini c Noteon 08-31-2023 Family [...] would like to atkins to [place] in [place] Needs to know when last testing was [...] 3078F Patient (more content not included)... Normal [facility] Comment on above: Result Comment: Elec tronically Signed By: Krishna SIMENTAL, Arley Martinez.deric\Date and Time Signed: 08/31/23 09:43 EDT HEMATOLOGYOrdered [...] Normal 4.0 - 11.0 E9/L Remisol Heme [id number] 08-31-2023 HbA1c (Bld) [Mass fraction] 6.8 % High <=5.9 [facility] Comment on above: Performed By: #### 7 [id number] #### [facility] [address] [place] [address] Lipid Panelon 08-31-2023 Cholesterol [Mass/Vol] 156 mg/dL Normal 120-200 [facility] Comment on above: Performed By: #### 2 [id number] #### [facility] [address] [place] [address] Cholesterol in HDL [Mass/Vol] 60 mg/dL Invalid Interpretation Code [facility] Comment on above: Result Comment: '>= 60 LOW RISK' '<= 40 HIGH RISK' Performed By: #### 2 [id number] #### [facility] [address] [place] [address] Cholesterol in LDL [Mass/Vol] 78 mg/dL Normal <=129 [facility] Comment on above: Performed By: #### 2 [id number] #### [facility] [address] [place] [address] Cholesterol in VLDL [Mass/Vol] 22 mg/dL Normal 7-40 [facility] Comment on above: Performed By: #### 2 672258 #### [facility] [address] [place] [address] Triglyceride [Mass/Vol] 108 mg/dL Normal <=149 [facility] Comment on above: Performed By: #### 2 079504 #### [facility] [address] [place] [address] Patient Educationon 08-31-19 24 Patient Education Nutrition BMI for Adults What [...] numbers. This can be done either in [place] ([place] or metric measurements. Note that charts and online BMI calculators are available to help you find your BMI quickly and easily without having to do these calculations yourself. To calculate your BMI in [place] ([place] measurements: 1. Measure your weight in [...] for Disease Control and Prevention: www.cdc.gov ? [place] Heart Association: www.heart.org ? National Heart, Lung, and Blood Allons: www.nhlbi.nih.gov Summary ? Body mass index (BMI) is a number that is calculated from a person's weight and height. ? BMI may help estimate how much of a person's weight is composed of fat. BMI can help identify those who may be at higher risk for certain medical problems. ? BMI can be measured using Israeli measurements or metric measurements. ? BMI charts are used to identify whether you are underweight, normal weight, overweight, or obese. This information is not intended to replace advice given to you by your health care provider. Make sure you discuss any questions you have with your health care provider. Document Revised: 12/13/2019 Document Reviewed: 10/20/2019 [employer] Patient Education ? 2022 [employer] Normal [facility] eGFRon 08-31-2023 eGFR 60 mL/min/1.73 m2 Normal >=59 [facility] Comment on above: Order Comment: Order added by Discern Expert. Performed By: #### 1 [id number] #### [facility] [address] [place] [address] Consultation Noteon 08-25-19 24 Consultation Note [id number] #1.00TIFF Normal [facility] Ambulatory Visit Summaryon 0 07-09-2023 Ambulatory Visit [...] Appointments Wednesday. 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\.br\ Carotid occlusion, left\.br\ Chronic kidney disease [...] for choosing us for your care.\.br\ \.br\ [facility] Family Medicine Office/Clini c Noteon 07-09-2023 Family [...] qPM, # 30 tab(s), Refills(s) 0, Pharmacy: [facility]/pharmacy #[id number], 160, cm, 07/09/23 10:50:00 EDT, [...] day(s), # 21 cap(s), Refills(s) 0, Pharmacy: [facility]/pharmacy #[id number], 160, cm, 07/09/23 10:50:00 EDT, Height/Length Dosing, 87.6, kg, 07/09/23 10:50:00 EDT, Weight Dosing montelukast, 10 mg = 1 tab(s), Oral, qPM, # 30 tab(s), Refills(s) 0, Pharmacy: [facility]/pharmacy #[id number], 160, cm, 07/09/23 10:50:00 EDT, [...] qualifying data available Patient Education Allergies, Adult, Kvuz-dm-Dobz Problem List/Past Medical History Ongoing Anemia 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 Normal [facility] Comment on above: Result Comment: Elec tronically Signed By: RICKY VALDIVIA CNP\.br\Date and Time Signed: 07/09/23 11:30 EDT Patient [...] at home: Medicines ? Take or apply laax-vcf-ohufnwx and prescription medicines only as told by [...] the hospital. Summary ? Take or apply qojw-nov-ncukvol and prescription medicines only as told by [...] provider. Document Revised: 01/31/2020 Document Reviewed: 01/31/2020 [employer] Patient Education ? 2022 [employer] [facility] Consultation Noteon 06-29-19 Consultation Note [id number] #1.00TIFF Normal [facility] Discharge Note - PTon 2023 Discharge Note - PT [id number] #1.00TIFF Normal [facility] PT - Progress Noteson 2023 PT - Progress Notes [id number] #1.00TIFF Normal [facility] Consultation Noteon 05-17-19 Consultation Note [id number] #1.00TIFF Normal [facility] XR Shoulder - right 2 Viewso n 05-14-2023 Imaging Result: X-rays and imaging permanently saved to the patient's record were reviewed two view shoulder shows reduction of the shoulder glenohumeral dislocation. There is mild to moderate degenerative changes. No sign of recurrent instability. There is no fracture or dislocation seen. This is AP and Y views saved to the permanent record in the [place] office. [facility] XR Shoulder - right 2 Viewso n 05-12-2023 Radiology Study observation (narrative) [facility] Consent for Treatmenton Consent for Treatment [id number] #1.00TIFF Normal [facility] US Renalon 05-11-2023 US Renal Exam Date/Time: [...] (Electronic Signature): 05/11/2023 1:41 pm Signed by: Booige Ross MD, V. Transcribed by: TIAN Technologist: Normal [facility] Physician Orderon 05-05-2023 Physician Order [id number] #1.00TIFF Normal [facility] Consultation Noteon 04-28-19 Consultation Note [id number] #1.00TIFF [facility] Calcium [Mass/volume] in Ser um or PlasmaOrdered By: Fransisco Benavides on 03-16-2023 Calcium [Mass/Vol] 9.2 mg/dL 8.6-10.3 [facility] Creatinine [Mass/volume] in Serum or PlasmaOrdered By: Fransisco Benavides on 03-16-2023 Creatinine [Mass/Vol] 1.04 mg/dL 0.60-1.20 [facility] Magnesium [Mass/volume] in S melvin or PlasmaOrdered By: Fransisco Benavides on 03-16-2023 Magnesium [Mass/Vol] 1.5 mg/dL 1.9-2.7 [facility] No Panel InformationOrdered By: Fransisco Benavides on 03-16-2023 Estimated GFR (CKD-EPI) 58.180 mL/Min [facility] Creatinine Clearance (Chem N/A [facility] Phosphate [Mass/volume] in S melvin or PlasmaOrdered By: Fransisco Benavides on 03-16-2023 Phosphate [Mass/Vol] 3.6 mg/dL 2.5-4.5 [facility] Urea nitrogen [Mass/volume] in Serum or PlasmaOrdered By: Fransisco Benavides on 03-16-2023 Urea nitrogen [Mass/Vol] 25 mg/dL 7-25 [facility] PROTEIN ELECTROPHERESISon Albumin [Mass/Vol] 3.8 g/dL Normal 2.9-4.4 [facility] Comment on above: Performed By: #### P RTELEC #### [facility] [address] [place] [address] Dr. Jennifer Atkins Albumin/Globulin [Mass ratio] 1.2 {ratio} Normal 0.7-1.7 [facility] Comment on above: Performed By: #### P RTELEC #### [facility] [address] [place] [address] Dr. Jennifer Atkins Lpflg-6-Ovkszvib 0.2 g/dL Normal 0.0-0.4 [facility] Comment on above: Performed By: #### P RTELEC #### [facility] [address] [place] [address] Dr. Jennifer Atkins Tdqll-5-Keexknky 0.8 g/dL Normal 0.4-1.0 [facility] Comment on above: Performed By: #### P RTELEC #### [facility] [address] [place] [address] Dr. Jennifer Atkins Beta Globulin 1.1 g/dL Normal 0.7-1.3 [facility] Comment on above: Performed By: #### P RTELEC #### [facility] [address] [place] [address] Dr. Jennifer Atkins Gamma Globulin 0.9 g/dL Normal 0.4-1.8 [facility] Comment on above: Performed By: #### P RTELEC #### [facility] [address] [place] [address] Dr. Jennifer Atkins Globulin (S) [Mass/Vol] 3.1 g/dL Normal 2.2-3.9 [facility] Comment on above: Performed By: #### P RTELEC #### [facility] [address] [place] [address] Dr. Jennifer Atkins M-Jimbo Not Observed Normal Not Observed [facility] Comment on above: Performed By: #### P RTELEC #### [facility] [address] [place] [address] Dr. Jennifer Atkins PDF . Normal [facility] Comment on above: Performed By: #### P RTELEC #### [facility] [address] [place] [address] Dr. Jennifer Atkins Please note: Comment Normal [facility] Comment on above: Result Comment: Prot ein electrophoresis scan will follow via computer, mail, or cardiology nurse delivery. Performed By: #### P RTELEC #### [facility] [address] [place] [address] Dr. Jennifer Atkins Protein [Mass/Vol] 6.9 g/dL Normal 6.0-8.5 [facility] Comment on above: Performed By: #### P RTELEC #### [facility] [address] [place] [address] Dr. Jennifer Atkins TSHon 05-21-2022 TSH 1.479 uIU/mL Normal 0.358-3.740 [facility] Comment on above: Performed By: #### T SH #### [facility] [address] [place] [address] Dr. Jennifer Atkins VIT B12 AND FOLATEon 023 Cobalamin (Vitamin B12) [Mass/Vol] 738.0 pg/mL Normal 193.0-986.0 [facility] Comment on above: Performed By: #### B 12FOL #### [facility] [address] [place] [address] Dr. Jennifer Atkins FOLATE 25.70 ng/mL Normal 8.60-58.90 [facility] Comment on above: Performed By: #### B 12FOL #### [facility] [address] [place] [address] Dr. Jennifer Atkins ENHANCED LIVER FIBROSIS TEST on 01-28-2022 ELF (TM) Score 10.76 Critically high <9.80 [facility] Comment on above: Result Comment: ELF( TM) Score Interpretation: Risk cut-offs to assess the likelihood of progression to cirrhosis and liver-related clinical events within 3.9 years following baseline ELF score (IQR: 14.0-22.4 months)*: Lower risk < 9.80 Mid risk 9.80 - 11.29 Higher risk >11.29 Note: The ELF(TM) Score is a unitless numerical value. *Unruly DELGADILLO, Kristian VW, Debi T, et al. Selonsertib for patients with bridging fibrosis or compensated cirrhosis due to FRIEND: Results from randomized phase III STELLAR trials. J Hepatol. 2020 Oct;73(1):26-39. Performed By: #### E LF #### [facility] [address] [address] [address] Jennifer Atkins Established Visit (Gastroent erology)on 12-23-2021 Established Visit (Gastroenterology) Diagnoses/Problems Assessed NAFLD (nonalcoholic fatty liver disease) (571.8) (K76.0) Orders NAFLD (nonalcoholic fatty liver disease) MISCELLANEOUS TEST; Status:Active; Requested for:23Dec2021; Perform:Lab Services - Lab To Draw (Non-Blood Test); Order Comments:ENHANCED LIVER FIBROSIS (ELF) TEST: [id number] CPT: 0014M LABCORPSERUM 2.5 ML, MINIMUM 1 ML. GEL-BARRIER TUBE OR RED-TOP TUBEREFRIGERATE; Due:[id number];Ordere d; For:NAFLD (nonalcoholic fatty liver disease); Ordered By:Kenroy Low; Patient Discussion/Summary If you have any questions, do not hesitate to call the Hepatology Nurse Coordinator at [phone]. PLEASE CALL IN 2022 FOR ORDERS. [X ] LABS: ELF TEST. HAVE RESULTS FAXED TO OUR OFFICE, [X ] FIBROSCAN ONCE A YEAR (Specialized test that measures scarring and fat in the liver) - Call to schedule: [facility] [place]: [phone]. - [place]: [phone] [X ] FOLLOW UP: IN 1 YEAR -Call to schedule [phone], Option 1 Provider Impressions we will check [...] DIRECTED. Lantus SoloStar 100 UNIT/ML Subcutaneous Solution Pen-atlcqaxi90 units BID Metoprolol Tartrate 25 MG Oral TabletTAKE 1 TABLET TWICE DAILY. Multivitamins TABSTAKE 1 TABLET DAILY. Plaquenil 200 MG Oral TabletTAKE 1 TABLET TWICE DAILY WITH FOOD. Pro (more content not included)... Normal [employer] ALBUMIN, URINE SPOTon 2021 ALBUMIN,URINE <7.0 Normal Not Established [facility] Comment on above: Performed By: #### A LBSP #### [address] [id number] ALBUMIN/CREAT RATIO SEE COMMENT Normal 0.0 - 30.0 [facility] Comment on above: Result Comment: One or more analytes used in this calculation is outside of the analytical measurement range. Calculation cannot be performed. Performed By: #### A LBSP #### [address] [id number] CREATININE,URINE 20.2 mg/dL Normal 20.0 - 320.0 [facility] Comment on above: Performed By: #### A LBSP #### [address] [id number] C PEPTIDEon 12-02-2021 C PEPTIDE 0.8 ng/mL Normal 0.7 - 3.9 [facility] Comment on above: Performed By: #### C PEPT #### [facility] [address] [place] [address] C Reactive Protein, Serumon 12-02-2021 CRP [Mass/Vol] mg/L [facility] [facility] Work Phone: Comment on above: REF VALUE< 1.00 C-REACTIVE PROTEINon 022 CRP [Mass/Vol] mg/L Normal [facility] Comment on above: Result Comment: REF VALUE < 1.00 Performed By: #### C RP #### [address] [id number] CBC AND DIFFERENTIALon 12-02 % AUTOMATED IMMATURE GRAN 0.2 % Normal 0.0 - 0.9 [facility] Comment on above: Result Comment: Melyssa ture Granulocyte Count (IG) includes promyelocytes, myelocytes and metamyelocytes but does not include bands. Percent differential counts (%) should be interpreted in the context of the absolute cell counts (cells/L). Performed By: #### C BCDF #### [address] [id number] Basophils (Bld) [#/Vol] 0.04 10*3/uL Normal 0.00 - 0.10 [facility] Comment on above: Performed By: #### C BCDF #### [address] [id number] Basophils/100 WBC (Bld) 0.6 % Normal 0.0 - 2.0 [facility] Comment on above: Performed By: #### C BCDF #### [address] [id number] Eosinophils (Bld) [#/Vol] 0.22 10*3/uL Normal 0.00 - 0.70 [facility] Comment on above: Performed By: #### C BCDF #### [address] [id number] Eosinophils/100 WBC (Bld) 3.5 % Normal 0.0 - 6.0 [facility] Comment on above: Performed By: #### C BCDF #### [address] [id number] Erythrocyte distribution width (RBC) [Ratio] 13.9 % Normal 11.5 - 14.5 [facility] Comment on above: Performed By: #### C BCDF #### [address] [id number] Hematocrit (Bld) [Volume fraction] 36.9 % Normal 36.0 - 46.0 [facility] Comment on above: Performed By: #### C BCDF #### [address] [id number] Hemoglobin (Bld) [Mass/Vol] 11.6 g/dL Low 12.0 - 16.0 [facility] Comment on above: Performed By: #### C BCDF #### [address] [id number] Lymphocytes (Bld) [#/Vol] 2.67 10*3/uL Normal 1.20 - 4.80 [facility] Comment on above: Performed By: #### C BCDF #### [address] [id number] Lymphocytes/100 WBC (Bld) 42.4 % Normal 13.0 - 44.0 [facility] Comment on above: Performed By: #### C BCDF #### [address] [id number] MCHC (RBC) [Mass/Vol] 31.4 g/dL Low 32.0 - 36.0 [facility] Comment on above: Performed By: #### C BCDF #### [address] [id number] MCV (RBC) [Entitic vol] 93 fL Normal 80 - 100 [facility] Comment on above: Performed By: #### C BCDF #### [address] [id number] Monocytes (Bld) [#/Vol] 0.70 10*3/uL Normal 0.10 - 1.00 [facility] Comment on above: Performed By: #### C BCDF #### [address] [id number] Monocytes/100 WBC (Bld) 11.1 % Normal 2.0 - 10.0 [facility] Comment on above: Performed By: #### C BCDF #### [address] [id number] Neutrophils (Bld) [#/Vol] 2.65 10*3/uL Normal 1.20 - 7.70 [facility] Comment on above: Performed By: #### C BCDF #### [address] [id number] Neutrophils/100 WBC (Bld) 42.2 % Normal 40.0 - 80.0 [facility] Comment on above: Performed By: #### C BCDF #### [address] [id number] Platelets (Bld) [#/Vol] 253 10*3/uL Normal 150 - 450 [facility] Comment on above: Performed By: #### C BCDF #### [address] [id number] RBC 3.96 x10E12/L Low 4.00 - 5.20 [facility] Comment on above: Performed By: #### C BCDF #### [address] [id number] WBC (Bld) [#/Vol] 6.3 10*3/uL Normal 4.4 - 11.3 [facility] Comment on above: Performed By: #### C BCDF #### [facility] [address] [place], [place] [id number] Complete Blood Count + Diffe terra 12-02-2021 Basophils/100 WBC (Bld) 0.6 % 0.0 - 2.0 [facility] [facility] Work Phone: Erythrocyte distribution width (RBC) [Ratio] 13.9 % See Below [facility] [facility] Work Phone: Comment on above: Reference Range: 11. 5 - 14.5 Hematocrit (Bld) [Volume fraction] 36.9 % See Below [facility] [facility] Work Phone: Comment on above: Reference Range: 36. 0 - 46.0 Hemoglobin (Bld) [Mass/Vol] 11.6 g/dL below low threshold See Below [facility] [facility] Work Phone: Comment on above: Reference Range: 12. 0 - 16.0 Lymphocytes/100 WBC (Bld) 42.4 % See Below [facility] [facility] Work Phone: Comment on above: Reference Range: 13. 0 - 44.0 MCHC (RBC) [Mass/Vol] 31.4 g/dL below low threshold See Below [facility] [facility] Work Phone: Comment on above: Reference Range: 32. 0 - 36.0 MCV (RBC) [Entitic vol] 93 fL 80 - 100 [facility] [facility] Work Phone: Monocytes/100 WBC (Bld) 11.1 % 2.0 - 10.0 [facility] [facility] Work Phone: Neutrophils/100 WBC (Bld) 42.2 % See Below [facility] [facility] Work Phone: Comment on above: Reference Range: 40. 0 - 80.0 Platelets (Bld) [#/Vol] 253 10*3/uL 150 - 450 [facility] [facility] Work Phone: RBC (Bld) [#/Vol] 3.96 {x10E12/L} below low threshold See Below [facility] [facility] Work Phone: Comment on above: Reference Range: 4.0 0 - 5.20 WBC (Bld) [#/Vol] 6.3 10*3/uL 4.4 - 11.3 [facility] [facility] Work Phone: Complete Blood Count + Differential 0.04 {x10E9/L} See Below [facility] [facility] Work Phone: Comment on above: Reference Range: 0.0 0 - 0.10 Complete Blood Count + Differential 0.22 {x10E9/L} See Below [facility] [facility] Work Phone: Comment on above: Reference Range: 0.0 0 - 0.70 Complete Blood Count + Differential 0.70 {x10E9/L} See Below [facility] [facility] Work Phone: Comment on above: Reference Range: 0.1 0 - 1.00 Complete Blood Count + Differential 2.67 {x10E9/L} See Below [facility] [facility] Work Phone: Comment on above: Reference Range: 1.2 0 - 4.80 Complete Blood Count + Differential 2.65 {x10E9/L} See Below [facility] [facility] Work Phone: Comment on above: Reference Range: 1.2 0 - 7.70 Complete Blood Count + Differential 3.5 % 0.0 - 6.0 [facility] [facility] Work Phone: Complete Blood Count + Differential 0.2 % 0.0 - 0.9 [facility] [facility] Work Phone: Comment on above: Immature Granulocyte Count (IG) includes promyelocytes, myelocytes and metamyelocytes but does not include bands. Percent differential counts (%) should be interpreted in the context of the absolute cell counts (cells/L). HEPATIC FUNCTION PANELon ALP [Catalytic activity/Vol] 63 U/L Normal 33 - 136 [facility] Comment on above: Performed By: #### H EPFP #### [address] [id number] ALT [Catalytic activity/Vol] 30 U/L Normal 7 - 45 [facility] Comment on above: Result Comment: Shannon ents treated with Sulfasalazine may generate falsely decreased results for ALT. Performed By: #### H EPFP #### [address] [id number] AST [Catalytic activity/Vol] 31 U/L Normal 9 - 39 [facility] Comment on above: Performed By: #### H EPFP #### [address] [id number] Bilirubin [Mass/Vol] 0.4 mg/dL Normal 0.0 - 1.2 [facility] Comment on above: Performed By: #### H EPFP #### [address] [id number] Bilirubin.indirect [Mass/Vol] 0.1 mg/dL Normal 0.0 - 0.3 [facility] Comment on above: Performed By: #### H EPFP #### [address] [id number] Protein [Mass/Vol] 7.5 g/dL Normal 6.4 - 8.2 [facility] Comment on above: Performed By: #### H EPFP #### [address] [id number] Hepatic Function Panelon Albumin BCP dye [Mass/Vol] 4.5 g/dL 3.4 - 5.0 [facility] [facility] Work Phone: ALP [Catalytic activity/Vol] 63 U/L 33 - 136 [facility] [facility] Work Phone: ALT With P-5'-P [Catalytic activity/Vol] 30 U/L 7 - 45 [facility] [facility] Work Phone: Comment on above: Patients treated wit h Sulfasalazine may generate falsely decreased results for ALT. AST With P-5'-P [Catalytic activity/Vol] 31 U/L 9 - 39 [facility] [facility] Work Phone: Bilirubin [Mass/Vol] 0.4 mg/dL 0.0 - 1.2 [facility] [facility] Work Phone: Bilirubin.direct [Mass/Vol] 0.1 mg/dL 0.0 - 0.3 [facility] [facility] Work Phone: Protein [Mass/Vol] 7.5 g/dL 6.4 - 8.2 [facility] [facility] Work Phone: LIPID PANEL (CORONARY RISK 2 )on 12-02-2021 Cholesterol [Mass/Vol] 171 mg/dL Normal 0 - 199 [facility] Comment on above: Result Comment: . AGE [...] dosing. Performed By: #### L IPID #### [address] [id number] Cholesterol in HDL [Mass/Vol] 73.0 mg/dL Normal [facility] Comment on above: Result Comment: . AGE VERY LOW LOW NORMAL HIGH 0-19 Y < 35 < 40 40-45 ---- 20-24 Y ---- < 40 >45 ---- >24 Y ---- < 40 40-60 >60 . Performed By: #### L IPID #### [address] [id number] Cholesterol in LDL [Mass/Vol] 78 mg/dL Normal 0 - 99 [facility] Comment on above: Result Comment: . NEAR BORD AGE DESIRABLE OPTIMAL HIGH HIGH VERY HIGH 0-19 Y 0 - 109 --- 110-129 >/= 130 ---- 20-24 Y 0 - 119 --- 120-159 >/= 160 ---- >24 Y 0 - 99 100-129 130-159 160-189 >/=190 . Performed By: #### L IPID #### [address] [id number] Cholesterol in VLDL [Mass/Vol] 20 mg/dL Normal 0 - 40 [facility] Comment on above: Performed By: #### L IPID #### [address] [id number] Cholesterol.total/Ch olesterol in HDL [Mass ratio] 2.3 {ratio} Normal [facility] Comment on above: Result Comment: REF VALUES DESIRABLE < 3.4 HIGH RISK > 5.0 Performed By: #### L IPID #### [address] [id number] Triglyceride [Mass/Vol] 101 mg/dL Normal 0 - 149 [facility] Comment on above: Result Comment: . AGE [...] dosing. Performed By: #### L IPID #### [address] [id number] Laboratory - Chemistry and C hemistry - challengeon 12-02-2021 Albumin Ql (U) <7.0 See Below [facility] [facility] Work Phone: Comment on above: Reference Range: Not Established Albumin/Creatinine DL <= 20 mg/L (U) [Mass ratio] SEE COMMENT 0.0 - 30.0 [facility] [facility] Work Phone: Comment on above: One or more analytes used in this calculation is outside of the analytical measurement range.Calculation cannot be performed. Creatinine (U) [Mass/Vol] 20.2 mg/dL See Below [facility] [facility] Work Phone: Comment on above: Reference Range: 20. 0 - 320.0 Lipid Panelon 12-02-2021 Cholesterol [Mass/Vol] 171 mg/dL 0 - 199 [facility] [facility] Work Phone: Comment on above: . [...] Cholesterol in HDL [Mass/Vol] 73.0 mg/dL [facility] [facility] Work Phone: Comment on above: . AGE VERY LOW LOW N ORMAL HIGH 0-19 Y < 35 < 40 40-45 ---- 20- 24 Y ---- < 40 >45 ---- >24 Y ---- < 40 40-60 >60. Cholesterol in LDL [Mass/Vol] 78 mg/dL 0 - 99 [facility] [facility] Work Phone: Comment on above: . NEAR BORD AGE HEBERT RABLE OPTIMAL HIGH HIGH VERY HIGH 0-19 Y 0 - 109 --- 110-129 >/= 130 ---- 20-24 Y 0 - 119 --- 120-159 >/= 160 ---- >24 Y 0 - 99 100-129 130-159 160-189 >/=190. Cholesterol.total/Ch olesterol in HDL [Mass ratio] 2.3 {ratio} [facility] [facility] Work Phone: Comment on above: REF VALUESDESIRABLE < 3.4HIGH RISK > 5.0 Triglyceride [Mass/Vol] 101 mg/dL 0 - 149 [facility] [facility] Work Phone: Comment on above: . [...] Panel 20 mg/dL 0 - 40 [facility] [facility] Work Phone: Procedure (Gastroenterology) on 12-02-2021 [...] DIRECTED. Lantus SoloStar 100 UNIT/ML Subcutaneous Solution Pen-sfgelpqn40 units BID Metoprolol Tartrate 25 MG Oral [...] Dec 02 2021 10:21AM EST (Author) Normal [facility] RENAL FUNCTION PANELon 12-02 Albumin [Mass/Vol] 4.5 g/dL Normal 3.4 - 5.0 [facility] Comment on above: Performed By: #### R ENAL #### [address] [id number] Performed By: #### H EPFP #### [address] [id number] Anion gap [Moles/Vol] 13 mmol/L Normal 10 - 20 [facility] Comment on above: Performed By: #### R ENAL #### [address] [id number] Calcium [Mass/Vol] 9.3 mg/dL Normal 8.6 - 10.3 [facility] Comment on above: Performed By: #### R ENAL #### [address] [id number] Chloride [Moles/Vol] 103 mmol/L Normal 98 - 107 [facility] Comment on above: Performed By: #### R ENAL #### [address] [id number] Creatinine [Mass/Vol] 1.19 mg/dL High 0.50 - 1.05 [facility] Comment on above: Performed By: #### R ENAL #### [address] [id number] GFR/1.73 sq M.predicted among non-blacks MDRD (S/P/Bld) [Vol rate/Area] 50 mL/min/{1.73_m2} Abnormal >90 [facility] Comment on above: Result Comment: CALC ULATIONS OF ESTIMATED GFR ARE PERFORMED USING THE 2020 CKD-EPI STUDY REFIT EQUATION WITHOUT THE RACE VARIABLE FOR THE IDMS-TRACEABLE CREATININE METHODS. https://jasn.asnjournals.org/content//ASN.0555892 988 Performed By: #### R ENAL #### [address] [id number] Glucose [Mass/Vol] 64 mg/dL Low 74 - 99 [facility] Comment on above: Performed By: #### R ENAL #### [address] [id number] HCO3 (Bld) [Moles/Vol] 29 mmol/L Normal 21 - 32 [facility] Comment on above: Performed By: #### R ENAL #### [address] [id number] Phosphate [Mass/Vol] 3.4 mg/dL Normal 2.5 - 4.9 [facility] Comment on above: Result Comment: The performance characteristics of phosphorus testing in heparinized plasma have been validated by the individual laboratory site where testing is performed. Testing on heparinized plasma is not approved by the FDA; however, such approval is not necessary. Performed By: #### R ENAL #### [facility] [address] [place], [place] [id number] Potassium [Moles/Vol] 4.7 mmol/L Normal 3.5 - 5.3 [facility] Comment on above: Performed By: #### R ENAL #### [facility] [address] [place], [place] [id number] Sodium [Moles/Vol] 140 mmol/L Normal 136 - 145 [facility] Comment on above: Performed By: #### R ENAL #### [facility] [address] [place], [place] [id number] Urea nitrogen [Mass/Vol] 31 mg/dL High 6 - 23 [facility] Comment on above: Performed By: #### R ENAL #### [facility] [address] [place], [place] [id number] Renal Function Panelon 12-02 Anion gap [Moles/Vol] 13 mmol/L 10 - 20 [facility] [facility] Work Phone: Calcium [Mass/Vol] 9.3 mg/dL 8.6 - 10.3 [facility] [facility] Work Phone: Chloride [Moles/Vol] 103 mmol/L 98 - 107 [facility] [facility] Work Phone: CO2 [Moles/Vol] 29 mmol/L 21 - 32 [facility] [facility] Work Phone: Creatinine [Mass/Vol] 1.19 mg/dL above high threshold See Below [facility] [facility] Work Phone: Comment on above: Reference Range: 0.5 0 - 1.05 Glucose [Mass/Vol] 64 mg/dL below low threshold 74 - 99 [facility] [facility] Work Phone: Phosphate [Mass/Vol] 3.4 mg/dL 2.5 - 4.9 [facility] [facility] Work Phone: Comment on above: The performance juliana acteristics of phosphorus testing in heparinized plasma have been validated by the individual laboratory site where testing is performed. Testing on heparinized plasma is not approved by the FDA; however, such approval is not necessary. Potassium [Moles/Vol] 4.7 mmol/L 3.5 - 5.3 [facility] [facility] Work Phone: Sodium [Moles/Vol] 140 mmol/L 136 - 145 [facility] [facility] Work Phone: Urea nitrogen [Mass/Vol] 31 mg/dL above high threshold 6 - 23 [facility] [facility] Work Phone: Renal Function Panel 50 {mL/min/1.73m2} Abnormal >90 [facility] [facility] Work Phone: Comment on above: CALCULATIONS OF KELI MATED GFR ARE PERFORMED USING THE 2020 CKD-EPI STUDY REFIT EQUATION WITHOUT THE RACE VARIABLE FOR THE IDMS-TRACEABLE CREATININE METHODS.https://jasn.asnjournals.org/content//ASN .1325905443 SEDIMENTATION RATE, ERYTHROC YTEon 12-02-2021 SEDIMENTATION RATE, ERYTHROCYTE 31 mm/h High 0 - 30 [facility] Comment on above: Result Comment: Clemencia cramer note new reference ranges as of 08/11/2021. Ran on alternate instrument Reference Ranges: Males: 0-15 Females: 0-20 Children under 18: 0-10 Performed By: #### E SRWS #### [address] [id number] Sedimentation Rate, Erythroc yteon 12-02-2021 ESR (Bld) [Velocity] 31 mm/h above high threshold 0 - 30 [facility] [facility] Work Phone: Comment on above: Please note new refe rence ranges as of 08/11/2021.Ran on alternate instrumentReference Ranges: Males: 0-15 Females: 0-20 Children under 18: 0-10 VITAMIN D, 25-HYDROXYon 08- VITAMIN D, 25-HYDROXY 55 ng/mL Normal [facility] Comment on above: Result Comment: . DEFICIENCY: < 20 NG/ML INSUFFICIENCY: 20-29 NG/ML SUFFICIENCY: 30-100 NG/ML THIS ASSAY ACCURATELY QUANTIFIES THE SUM OF VITAMIN D3, 25-HYDROXY AND VIT D2,25-HYDROXY. Performed By: #### V TDOH #### [address] [id number] Vitamin D 25-Hydroxyon 12-02 25-hydroxyvitamin D3 [Mass/Vol] 55 ng/mL [facility] [facility] Work Phone: Comment on above: .DEFICIENCY: [...] Services - Lab To Draw (Blood Test); Due:12May2021;Ordere d; For:NAFLD (nonalcoholic fatty liver disease); Ordered By:Kenroy Low; KENDALL Liver Ultrasound; Status:Hold For - Exact Date,Scheduling; Requested for:Approx ; Perform:In Office; Order Comments:FIBROSCAN; Due:12May2021;Ordere d; For:NAFLD (nonalcoholic fatty liver disease); Ordered [...] 12-12-2020 HIPS BILATERAL 2 VWS WITH PELVIS [facility] Department of Radiology [address] [place] [id number] Patient Name: LJ DOLL : 1955 Sex: F Age: Race: White Pt. Location: Patient Status: D Ordered Date: 12/12/2020 8:30:00 AM Completed Date: 12/12/2020 08:38 AM Requesting Provider: CHAGO WARREN Attending Provider: CHAGO WARREN Report Copy To: BREE AMBROSE Signs & Symptoms: Z96.642 Presence of left artificial hip joint History: [place] failed; scanned in RIS Comments: evaluate Exam: [...] report. Electronically signed: James Francisco. Transcribed by: [email or web address], User Resident: ZOLTAN CASTRO Electronically Signed by: JAMES FRANCISCO @ 12/13/2020 10:51 AM I personally read this/these film(s) with this resident Normal [facility] Comment on above: Order Comment: evalu ate HAND LEFT 3 VWSon 04-26-2020 HAND LEFT 3 VWS [facility] Department of Radiology [address] [place] [phone] Patient Name: LJ DOLL : 1955 [...] arthritis. Electronically signed: James Francisco. Transcribed by: [email or web address], User Resident: Electronically Signed by: JAMES FRANCISCO @ 04/27/2020 01:21 PM Normal [facility] Comment on above: Order Comment: Evalu ate WRIST LEFT 3 VWSon 1 WRIST LEFT 3 VWS [facility] Department of Radiology [address] [place] [phone] Patient Name: LJ DOLL : 1955 [...] arthritis. Electronically signed: James Francisco. Transcribed by: [email or web address], User Resident: Electronically Signed by: JAMES FRANCISCO @ 04/27/2020 01:21 PM Normal [facility] Comment on above: Order Comment: Evalu ate ABO/RH GROUP TESTon 10-23-19 ABO TYPE O Normal [facility] Comment on above: Performed By: #### V ERAB ####[address] [address] RH TYPE Positive Normal [facility] Comment on above: Performed By: #### V ERAB ####[address] [address] BASIC METABOLIC PANELon 10-04 Anion gap [Moles/Vol] 9 mmol/L Low - [facility] Comment on above: Performed By: #### B MP ####[address] [address] Calcium [Mass/Vol] 8.7 mg/dL Normal 8.6 - 10.3 [facility] Comment on above: Performed By: #### B MP ####[address] [address] Chloride [Moles/Vol] 110 mmol/L High 98 - 107 [facility] Comment on above: Performed By: #### B MP ####[address] [address] Creatinine [Mass/Vol] 0.94 mg/dL Normal 0.50 - 1.05 [facility] Comment on above: Performed By: #### B MP ####[address] [address] GFR- AM. 73 mL/min/1.73m2 Normal >60 [facility] Comment on above: Result Comment: CALC ULATIONS OF ESTIMATED GFR ARE PERFORMED USING THE MDRD STUDY EQUATION FOR THE IDMS-TRACEABLE CREATININE METHODS. CLIN CHEM 2007;53:766-72 Performed By: #### B MP ####[address] [address] GFR-NON AM. 60 mL/min/1.73m2 Abnormal >60 [facility] Comment on above: Performed By: #### B MP ####[address] [address] Glucose [Mass/Vol] 155 mg/dL High 74 - 99 [facility] Comment on above: Performed By: #### B MP ####[address] [address] HCO3 (Bld) [Moles/Vol] 24 mmol/L Normal 21 - 32 [facility] Comment on above: Performed By: #### B MP ####[address] [address] Potassium [Moles/Vol] 4.4 mmol/L Normal 3.5 - 5.3 [facility] Comment on above: Performed By: #### B MP ####[address] [address] Sodium [Moles/Vol] 139 mmol/L Normal 136 - 145 [facility] Comment on above: Performed By: #### B MP ####[address] [address] Urea nitrogen [Mass/Vol] 27 mg/dL High 6 - 23 [facility] Comment on above: Performed By: #### B MP ####[address] [address] CBCon 10-22-2018 Erythrocyte distribution width (RBC) [Ratio] 14.6 % High 11.5 - 14.5 [facility] Comment on above: Performed By: #### C BC ####[address] [address] Hematocrit (Bld) [Volume fraction] 24.8 % Low 36.0 - 46.0 [facility] Comment on above: Performed By: #### C BC ####[address] [address] Hemoglobin (Bld) [Mass/Vol] 7.4 g/dL Low 12.0 - 16.0 [facility] Comment on above: Performed By: #### C BC ####[address] [address] MCHC (RBC) [Mass/Vol] 29.8 g/dL Low 32.0 - 36.0 [facility] Comment on above: Performed By: #### C BC ####[address] [address] MCV (RBC) [Entitic vol] 92 fL Normal 80 - 100 [facility] Comment on above: Performed By: #### C BC ####[address] [address] Nucleated RBC/100 WBC (Bld) [Ratio] 0.0 /100 WBC Normal 0.0 - 0.0 [facility] Comment on above: Performed By: #### C BC ####[address] [address] Platelets (Bld) [#/Vol] 212 10*3/uL Normal 150 - 450 [facility] Comment on above: Performed By: #### C BC ####[address] [address] RBC (Bld) [#/Vol] 2.71 x10E12/L Low 4.00 - 5.20 [facility] Comment on above: Performed By: #### C BC ####[address] [address] WBC (Bld) [#/Vol] 7.2 10*3/uL Normal 4.4 - 11.3 [facility] Comment on above: Performed By: #### C BC ####[address] [address] Discharge [id number] Discharge Profile2 Discharge Orders: Anticipated Discharge Date: Anticipated Discharge [id number] Problem List: Admitting Dx: Gastrointestinal hemorrhage with hematemesis: [facility] Providers: Provider RoleProvider Name Jeffrey Paige Shaffer [...] normal per the patient. She presented to [facility] on September 20 for evaluation of [...] GI bleeding. Course: Patient was transferred to [facility] ICU and monitored. She didn't show any evidence of bleeding. No melena or hematochezia. Her vitals were stable so she was transferred out of ICU to [facility]. GI saw her there and she underwent EGD on 10/22/18. No bleeding was found. Hiatal hernia was noted. Patient's aspirin, plavix and celebrex were held and stopped at discharged. Since her coronary stent was placed in 2016, she likely doesn't need to be on plavix anymore. 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 Her [...] in1 week Follow-Up Appointment 02: Physician/Dept/Janna Rizzo supervisor baking Call to Schedule in4 weeks Electronic Signatures: Jeffrey Crowell) (Signed 22-Oct-2018 12:24) Authored: Discharge Orders, Hospital Course (Home Care/Gold Form), Provider FINAL REVIEW of Orders, Appointments, Gold Form - Radio Board Operator Announcer Summary Last Updated: 22-Oct-2018 12:24 by Jeffrey Crowell) Normal [facility] GLUCOSE-POCTon 10-22-2018 Glucose [Mass/Vol] 146 mg/dL High 74 - 99 [facility] Comment on above: Performed By: #### G BENNIE ####[address] [address] Glucose [Mass/Vol] 160 mg/dL High 74 - 99 [facility] Comment on above: Performed By: #### G BENNIE ####[address] [address] REQUEST-LEUKOREDUCED RED JE LSon 10-22-2018 REQUEST-LEUKOREDUCED RED CELLS ORDER RECD Normal [facility] Comment on above: Performed By: #### O SHOT DROPPER ####[address] [address] BASIC METABOLIC PANELon 10-03 Anion gap [Moles/Vol] 14 mmol/L Normal - [facility] Comment on above: Performed By: #### B MP ####[address] [address] Calcium [Mass/Vol] 8.4 mg/dL Low 8.6 - 10.3 [facility] Comment on above: Performed By: #### B MP ####[address] [address] Chloride [Moles/Vol] 108 mmol/L High 98 - 107 [facility] Comment on above: Performed By: #### B MP ####[address] [address] Creatinine [Mass/Vol] 0.93 mg/dL Normal 0.50 - 1.05 [facility] Comment on above: Performed By: #### B MP ####[address] [address] GFR- AM. 73 mL/min/1.73m2 Normal >60 [facility] Comment on above: Result Comment: CALC ULATIONS OF ESTIMATED GFR ARE PERFORMED USING THE MDRD STUDY EQUATION FOR THE IDMS-TRACEABLE CREATININE METHODS. CLIN CHEM 2007;53:766-72 Performed By: #### B MP ####[address] [address] GFR-NON AM. 60 mL/min/1.73m2 Abnormal >60 [facility] Comment on above: Performed By: #### B MP ####[address] [address] Glucose [Mass/Vol] 118 mg/dL High 74 - 99 [facility] Comment on above: Performed By: #### B MP ####[address] [address] HCO3 (Bld) [Moles/Vol] 22 mmol/L Normal 21 - 32 [facility] Comment on above: Performed By: #### B MP ####[address] [address] Potassium [Moles/Vol] 4.2 mmol/L Normal 3.5 - 5.3 [facility] Comment on above: Performed By: #### B MP ####[address] [address] Sodium [Moles/Vol] 140 mmol/L Normal 136 - 145 [facility] Comment on above: Performed By: #### B MP ####[address] [address] Urea nitrogen [Mass/Vol] 36 mg/dL High 6 - 23 [facility] Comment on above: Performed By: #### B MP ####[address] [address] CBCon 10-21-2018 Erythrocyte distribution width (RBC) [Ratio] 14.6 % High 11.5 - 14.5 [facility] Comment on above: Performed By: #### C BC ####[address] [address] Hematocrit (Bld) [Volume fraction] 26.3 % Low 36.0 - 46.0 [facility] Comment on above: Performed By: #### C BC ####[address] [address] Hemoglobin (Bld) [Mass/Vol] 8.0 g/dL Low 12.0 - 16.0 [facility] Comment on above: Performed By: #### C BC ####[address] [address] MCHC (RBC) [Mass/Vol] 30.4 g/dL Low 32.0 - 36.0 [facility] Comment on above: Performed By: #### C BC ####[address] [address] MCV (RBC) [Entitic vol] 92 fL Normal 80 - 100 [facility] Comment on above: Performed By: #### C BC ####[address] [address] Nucleated RBC/100 WBC (Bld) [Ratio] 0.0 /100 WBC Normal 0.0 - 0.0 [facility] Comment on above: Performed By: #### C BC ####[address] [address] Platelets (Bld) [#/Vol] 244 10*3/uL Normal 150 - 450 [facility] Comment on above: Performed By: #### C BC ####[facility] [place] [address] RBC (Bld) [#/Vol] 2.86 x10E12/L Low 4.00 - 5.20 [facility] Comment on above: Performed By: #### C BC ####[facility] [place] [address] WBC (Bld) [#/Vol] 8.6 10*3/uL Normal 4.4 - 11.3 [facility] Comment on above: Performed By: #### C BC ####[facility] [place] [address] Consult-Gastroenterologyon 0 10-21-2018 Consult-Gastroentero logy Service: Service: [...] Mood Alteration Objective: Objective Information: T PRBPSpO2 [id number]/539 8% Date/Time10/21 8: 11: 11:007/19 11: 8:00 Range(36.3C - 36.9C ) (68 [...] --EGD tomorrow AM Dr. Chacorta Robledo MD [facility] [place] Electronic Signatures: Chacorta Robledo) (Signed 21-Oct-2018 15:15) Authored: Service, History of Present Illness, Review Family/Social History and ROS, Allergies, Objective, Assessment/Recommend ations, Signature/Cosignatur e/Attestation Last Updated: 21-Oct-2018 15:15 by Chacorta Robledo) [facility] Daily Progress Note - Critic al Kevinon 10-21-2018 Daily Progress Note - Critical Care Subjective Data: ID Statement: LJ DOLL is a 63 year old Female who is Hospital Day # 2 and ICU Day #2. Patient seen and examined. Hemodynamically stable. On room air. She states she has occasional abdominal discomfort. She denies chest pain. She denies shortness of breath. Objective Data: Objective Information T PRBPSpO2 [id number]/619 7% Date/Time10/21 3: 5: 5: 5: 5:00 [...] reviewed these laboratory results: Glucose_POCT Trending View [id number] 05:27:00 20-Oct-2018 23:24:00 20-Oct-2018 16:44:00 Glucose-AHAP121 H 114 H 120 H Complete Blood Count Trending View [id number] 04:11:00 20-Oct-2018 15:31:00 White Blood Cell Count8.6 7.7 Nucleated Erythrocyte Count0.0 0.0 Red Blood Cell Count2.86 L 2.76 L HGB8.0 L 7.7 L HCT26.3 L 25.7 L MCV92 93 MCHC30.4 L 30.0 L CZO348 241 RDW-CV14.6 H 14.6 H Basic Metabolic [...] [facility] who will accept the patient to [facility]. Code Status: Code StatusFull Code Signature/Cosignatur [...] for greater detail. Electronic Signatures: Homero Enriquez (COUNTY ENGINEER-RESOURCE DEVELOPMENT MANAGER) (Signed 21-Oct-2018 12:03) Authored: Subjective Data, Objective Data, Assessment and Plan, Signature/Cosignatur e/Attestation Last Updated: 21-Oct-2018 12:03 by Homero Enriquez (COUNTY ENGINEER-RESOURCE DEVELOPMENT MANAGER) Normal [facility] GLUCOSE-POCTon 10-21-2018 Glucose [Mass/Vol] 180 mg/dL High 74 - 99 [facility] Comment on above: Performed By: #### G BENNIE ####[address] [address] Glucose [Mass/Vol] 166 mg/dL High 74 - 99 [facility] Comment on above: Performed By: #### G BENNIE ####[address] [address] Glucose [Mass/Vol] 174 mg/dL High 74 - 99 [facility] Comment on above: Performed By: #### G BENNIE ####[address] [address] Glucose [Mass/Vol] 129 mg/dL High 74 - 99 [facility] Comment on above: Performed By: #### G BENNIE ####[address] [address] Glucose [Mass/Vol] 114 mg/dL High 74 - 99 [facility] Comment on above: Performed By: #### G BENNIE ####[address] [address] HEMOGLOBIN A1Con 10-21-2018 HbA1c (Bld) [Mass fraction] 6.8 % Normal [facility] Comment on above: Result Comment: Diag nosis of Diabetes-Adults Non-Diabetic: < or = 5.6% Increased risk for developing diabetes: 5.7-6.4% Diagnostic of diabetes: > or = 6.5% . Monitoring of Diabetes Age (y) Therapeutic Goal (%) Adults: >18 <7.0 Pediatrics: 13-18 <7.5 7-12 <8.0 0- 6 7.5-8.5 [place] [employer]. Diabetes Care 33(S1), Apr 2009. Performed By: #### H BA1E ####[address] [address] HbA1c (Bld) [Mass fraction] 148 MG/DL Normal [facility] Comment on above: Performed By: #### H BA1E ####[address] [address] HGB + HCTon 10-21-2018 Hematocrit (Bld) [Volume fraction] 25.1 % Low 36.0 - 46.0 [facility] Comment on above: Performed By: #### H H ####[address] [address] Hemoglobin (Bld) [Mass/Vol] 7.9 g/dL Low 12.0 - 16.0 [facility] Comment on above: Performed By: #### H H ####[address] [address] MAGNESIUMon 10-21-2018 Magnesium [Mass/Vol] 1.80 mg/dL Normal 1.60 - 2.40 [facility] Comment on above: Performed By: #### M G ####[address] [address] PHOSPHORUSon 10-21-2018 Phosphate [Mass/Vol] 2.1 mg/dL Low 2.5 - 4.9 [facility] Comment on above: Result Comment: The performance characteristics of phosphorus testing in heparinized plasma have been validated by the individual laboratory site where testing is performed. Testing on heparinized plasma is not approved by the FDA; however, such approval is not necessary. Performed By: #### P HOS ####[facility] [place] [address] Preop Checkliston 10-21-2018 Preop Checklist Preop Checklist: Preop Checklist: Arrival [id number] Arrival Time07:30 Procedure Typeesophago - gastro-duodenoscopy NPO [id number] NPO Commentnpo at mid night ID Band [...] Updated: 21-Oct-2018 22:04 by Glory Wilde (TIFFANIE) Normal [facility] Admission Risk Screen - Adul ton 10-20-2018 [...] risk with low risk for associated injury [place] Safety InterventionsWDL *orient to call system *instruct [...] Communicatenone Learning Preferencesaudio Cultural Considerationsnone Developmental Considerationsnone Taoism Considerationsnone Learning Assessment (Other Learner): Other learner [...] Spiritual Screen: Are there any cultural, spiritual, sabianism practices/values/nee ds that are important for us to knowno Do you want a visit/item from [facility] Would you like your Coding Compliance Auditor/Helicopter Repairer notifiedno CAGE: Is this an injured patient at a Trauma Center ([facility]/[place]/[facility]/[place]): no Vaccinations: Vaccination - Influenza Vaccination Screen: [...] Pressure Injury Last Updated: 20-Oct-2018 11:00 by uJdy Monet (NEVAEH) Normal [facility] CBCon 10-20-2018 Erythrocyte distribution width (RBC) [Ratio] 14.6 % High 11.5 - 14.5 [facility] Comment on above: Performed By: #### C BC #### [address] [address] Hematocrit (Bld) [Volume fraction] 25.7 % Low 36.0 - 46.0 [facility] Comment on above: Performed By: #### C BC #### [address] [address] Hemoglobin (Bld) [Mass/Vol] 7.7 g/dL Low 12.0 - 16.0 [facility] Comment on above: Performed By: #### C BC #### [address] [place] [address] MCHC (RBC) [Mass/Vol] 30.0 g/dL Low 32.0 - 36.0 [facility] Comment on above: Performed By: #### C BC #### [address] [place] [address] MCV (RBC) [Entitic vol] 93 fL Normal 80 - 100 [facility] Comment on above: Performed By: #### C BC #### [address] [place] [address] Nucleated RBC/100 WBC (Bld) [Ratio] 0.0 /100 WBC Normal 0.0 - 0.0 [facility] Comment on above: Performed By: #### C BC #### [address] [place] [address] Platelets (Bld) [#/Vol] 241 10*3/uL Normal 150 - 450 [facility] Comment on above: Performed By: #### C BC #### [address] [place] [address] RBC (Bld) [#/Vol] 2.76 x10E12/L Low 4.00 - 5.20 [facility] Comment on above: Performed By: #### C BC #### [address] [place] [address] WBC (Bld) [#/Vol] 7.7 10*3/uL Normal 4.4 - 11.3 [facility] Comment on above: Performed By: #### C BC #### [address] [place] [address] COMPREHENSIVE PANELon 2018 Albumin [Mass/Vol] 3.6 g/dL Normal 3.4 - 5.0 [facility] Comment on above: Performed By: #### C MP ####[address] [place] [address] ALP [Catalytic activity/Vol] 91 U/L Normal 33 - 136 [facility] Comment on above: Performed By: #### C MP ####[address] [place] [address] ALT [Catalytic activity/Vol] 34 U/L Normal 7 - 45 [facility] Comment on above: Result Comment: Shannon ents treated with Sulfasalazine may generate falsely decreased results for ALT. Performed By: #### C MP ####[address] [place] [address] Anion gap [Moles/Vol] 11 mmol/L Normal 10 - 20 [facility] Comment on above: Performed By: #### C MP ####[address] [place] [address] AST [Catalytic activity/Vol] 22 U/L Normal 9 - 39 [facility] Comment on above: Performed By: #### C MP ####[address] [place] [address] Bilirubin [Mass/Vol] 0.2 mg/dL Normal 0.0 - 1.2 [facility] Comment on above: Performed By: #### C MP ####[address] [place] [address] Calcium [Mass/Vol] 8.4 mg/dL Low 8.6 - 10.3 [facility] Comment on above: Performed By: #### C MP ####[address] [address] Chloride [Moles/Vol] 111 mmol/L High 98 - 107 [facility] Comment on above: Performed By: #### C MP ####[address] [place] [address] Creatinine [Mass/Vol] 0.92 mg/dL Normal 0.50 - 1.05 [facility] Comment on above: Performed By: #### C MP ####[address] [place] [address] GFR- AM. >60 Normal >60 [facility] Comment on above: Result Comment: CALC ULATIONS OF ESTIMATED GFR ARE PERFORMED USING THE MDRD STUDY EQUATION FOR THE IDMS-TRACEABLE CREATININE METHODS. CLIN CHEM 2007;53:766-72 Performed By: #### C MP ####[address] [address] GFR-NON AM. >60 Normal >60 [facility] Comment on above: Performed By: #### C MP ####[address] [address] Glucose [Mass/Vol] 120 mg/dL High 74 - 99 [facility] Comment on above: Performed By: #### C MP ####[address] [address] HCO3 (Bld) [Moles/Vol] 22 mmol/L Normal 21 - 32 [facility] Comment on above: Performed By: #### C MP ####[address] [address] Potassium [Moles/Vol] 4.7 mmol/L Normal 3.5 - 5.3 [facility] Comment on above: Performed By: #### C MP ####[address] [address] Protein [Mass/Vol] 6.0 g/dL Low 6.4 - 8.2 [facility] Comment on above: Performed By: #### C MP ####[address] [address] Sodium [Moles/Vol] 139 mmol/L Normal 136 - 145 [facility] Comment on above: Performed By: #### C MP ####[address] [address] Urea nitrogen [Mass/Vol] 45 mg/dL High 6 - 23 [facility] Comment on above: Performed By: #### C MP ####[address] [address] Albumin [Mass/Vol] Canceled Normal [facility] Comment on above: Order Comment: TEST COMPREHENSIVE PANEL WAS CANCELLED, 10/20/2018 16:05 ?Cancel Reason: Cancelled. Performed By: #### C MP #### [address] [address] ALP [Catalytic activity/Vol] Canceled Normal [facility] Comment on above: Order Comment: TEST COMPREHENSIVE PANEL WAS CANCELLED, 10/20/2018 16:05 ?Cancel Reason: Cancelled. Performed By: #### C MP #### [address] [place] [address] ALT [Catalytic activity/Vol] Canceled Normal [facility] Comment on above: Order Comment: TEST COMPREHENSIVE PANEL WAS CANCELLED, 10/20/2018 16:05 ?Cancel Reason: Cancelled. Result Comment: Shannon ents treated with Sulfasalazine may generate falsely decreased results for ALT. Performed By: #### C MP #### [address] [place] [address] Anion gap [Moles/Vol] Canceled Normal [facility] Comment on above: Order Comment: TEST COMPREHENSIVE PANEL WAS CANCELLED, 10/20/2018 16:05 ?Cancel Reason: Cancelled. Performed By: #### C MP #### [address] [place] [address] AST [Catalytic activity/Vol] Canceled Normal [facility] Comment on above: Order Comment: TEST COMPREHENSIVE PANEL WAS CANCELLED, 10/20/2018 16:05 ?Cancel Reason: Cancelled. Performed By: #### C MP #### [address] [place] [address] Bilirubin [Mass/Vol] Canceled Normal [facility] Comment on above: Order Comment: TEST COMPREHENSIVE PANEL WAS CANCELLED, 10/20/2018 16:05 ?Cancel Reason: Cancelled. Performed By: #### C MP #### [address] [place] [address] Calcium [Mass/Vol] Canceled Normal [facility] Comment on above: Order Comment: TEST COMPREHENSIVE PANEL WAS CANCELLED, 10/20/2018 16:05 ?Cancel Reason: Cancelled. Performed By: #### C MP #### [address] [place] [address] Chloride [Moles/Vol] Canceled Normal [facility] Comment on above: Order Comment: TEST COMPREHENSIVE PANEL WAS CANCELLED, 10/20/2018 16:05 ?Cancel Reason: Cancelled. Performed By: #### C MP #### [address] [place] [address] Creatinine [Mass/Vol] Canceled Normal [facility] Comment on above: Order Comment: TEST COMPREHENSIVE PANEL WAS CANCELLED, 10/20/2018 16:05 ?Cancel Reason: Cancelled. Performed By: #### C MP #### [address] [place] [address] GFR- AM. Canceled Normal [facility] Comment on above: Order Comment: TEST COMPREHENSIVE PANEL WAS CANCELLED, 10/20/2018 16:05 ?Cancel Reason: Cancelled. Result Comment: CALC ULATIONS OF ESTIMATED GFR ARE PERFORMED USING THE MDRD STUDY EQUATION FOR THE IDMS-TRACEABLE CREATININE METHODS. CLIN CHEM 2007;53:766-72 Performed By: #### C MP #### [address] [place] [address] GFR-NON AM. Canceled Normal [facility] Comment on above: Order Comment: TEST COMPREHENSIVE PANEL WAS CANCELLED, 10/20/2018 16:05 ?Cancel Reason: Cancelled. Performed By: #### C MP #### [address] [place] [address] Glucose [Mass/Vol] Canceled Normal [facility] Comment on above: Order Comment: TEST COMPREHENSIVE PANEL WAS CANCELLED, 10/20/2018 16:05 ?Cancel Reason: Cancelled. Performed By: #### C MP #### [address] [place] [address] HCO3 (Bld) [Moles/Vol] Canceled Normal [facility] Comment on above: Order Comment: TEST COMPREHENSIVE PANEL WAS CANCELLED, 10/20/2018 16:05 ?Cancel Reason: Cancelled. Performed By: #### C MP #### [address] [place] [address] Potassium [Moles/Vol] Canceled Normal [facility] Comment on above: Order Comment: TEST COMPREHENSIVE PANEL WAS CANCELLED, 10/20/2018 16:05 ?Cancel Reason: Cancelled. Performed By: #### C MP #### [address] [place] [address] Protein [Mass/Vol] Canceled Normal [facility] Comment on above: Order Comment: TEST COMPREHENSIVE PANEL WAS CANCELLED, 10/20/2018 16:05 ?Cancel Reason: Cancelled. Performed By: #### C MP #### [address] [place] [address] Sodium [Moles/Vol] Canceled Normal [facility] Comment on above: Order Comment: TEST COMPREHENSIVE PANEL WAS CANCELLED, 10/20/2018 16:05 ?Cancel Reason: Cancelled. Performed By: #### C MP #### [address] [place] [address] Urea nitrogen [Mass/Vol] Canceled Normal [facility] Comment on above: Order Comment: TEST COMPREHENSIVE PANEL WAS CANCELLED, 10/20/2018 16:05 ?Cancel Reason: Cancelled. Performed By: #### C MP #### [address] [place] [address] Clinical Intervention - Nguyễn talavera 10-20-2018 Clinical Intervention - Pharmacy Pharmacist's Clinical Intervention: Is this intervention medication reconciliation related: Yes, HISTORY Electronic Signatures: Helena Guillen (Multichannel) (Signed 20-Oct-2018 12:41) Authored: Pharmacist's Clinical Intervention Last Updated: 20-Oct-2018 12:41 by Helena Guillen (Multichannel) [facility] Clinical Intervention - Pharmacy Pharmacist's Clinical Intervention: Is this intervention medication reconciliation related: Yes, ALLERGY Electronic Signatures: Helena Guillen (Multichannel) (Signed 20-Oct-2018 12:40) Authored: Pharmacist's Clinical Intervention Last Updated: 20-Oct-2018 12:40 by Helena Guillen (Multichannel) [facility] Discharge Planning Noteon Discharge Planning Note Discharge Needs Assessment: Discharge Planning Assessment [id number] Readmission Within the Last 30 Daysno previous [...] Discharge Planning: Discharge Planning: Patient admitted from [place] to ICU for a syncopal episode 10/21/18 1225- Met with pt at bedside, she lives with her and daughter in a 1 story home, reports being independent, drives, uses a cane as needed. Pt has hx of DM II- has a working glucose meter and supplies. PCP is Dr Ambrose, seen 3 wks ago. Preferred pharmacy is [facility] in [place], reports taking her medications as prescribed and is able to afford them. Pt plans to return home, denies any needs. Ritu HERRING TCC Final Disposition/Discharg e: Disposition/Discharg e Information: Discharge/Transfer Information: Discharge/Transfer Date/[id number] Discharged Accompanied Byspouse Discharge Modewheelchair Transportation Methodprivate car Valuables/Medication s/Belongings Returnedyes Final DispositionHome Electronic Signatures: Judy Monet (RN) (Signed 20-Oct-2018 11:07) Authored: Discharge Planning Note Ritu Ruiz (MILLER KILN DRIED SALT) (Signed 21-Oct-2018 13:40) Authored: Discharge Planning Note Sharmin Mayfield (SHYANN) (Signed 22-Oct-2018 16:42) Authored: Final Disposition/Discharg e Last Updated: 22-Oct-2018 16:42 by Sharmin Mayfield (SHYANN) References: 1. Data Referenced From 5. Education 10/20/2018 10:55 AM 2. Data Referenced From Admission Risk Screen - Adult 10/20/2018 10:55 AM Normal [facility] EMR ADDONon 10-20-2018 ADDON CONFIRMATION REQUEST REC'D Normal [facility] Comment on above: Performed By: #### E MRAD #### [facility] [address] [place] [address] GLUCOSE-POCTon 10-20-2018 Glucose [Mass/Vol] 120 mg/dL High 74 - 99 [facility] Comment on above: Performed By: #### G BENNIE ####[facility] [facility] [place] [address] History and Physical - Nanette Portillo 10-20-2018 [...] normal per the patient. She presented to [facility] on September 20 for evaluation of [...] Objective: Objective Information: Objective Information T PRBPSpO2 [id number]/609 8% Date/Time10/20 10: 12: 12: 12: 12:00 [...] obeys commands Best Verbal Response: (V5) oriented Hillpoint Score: 15 Recent Lab Results: Results: Assessment [...] Admit to Inpatient Adult Community Transfer to, [facility] [place] [facility] Admitting Diagnosis, K92.0 Gastrointestinal hemorrhage with hematemesis , Attending Provider Ildefonso Starks David Admission Order Certification order has been placed by Ildefonso Starks Electronic Signatures: Ildefonso Starks) (Signed 20-Oct-2018 23:06) Authored: Signatures/Attestati on/Certification Co-Signer: Service, History of Present Illness, Comorbidities, Family History, Social History, Allergies, Medications Prior to Admission, Review of Systems, Objective, Assessment and Plan, Signatures/Attestati on/Certification Homero Enriquez (COUNTY ENGINEER-RESOURCE DEVELOPMENT MANAGER) (Signed 21-Oct-2018 05:40) Authored: Service, History of Present Illness, Comorbidities, Family History, Social History, Allergies, Medications Prior to Admission, Review of Systems, Objective, Assessment and Plan, Signatures/Attestati on/Certification Last Updated: 21-Oct-2018 05:40 by Homero Enriquez (COUNTY ENGINEER-RESOURCE DEVELOPMENT MANAGER) Normal [facility] PT/INRon 10-20-2018 INR Coag (PPP) [Relative time] 1.0 {INR} Normal 0.9 - 1.1 [facility] Comment on above: Performed By: #### P TINR ####[address] [address] PT Coag (PPP) [Time] 11.5 s Normal 9.7 - 12.7 [facility] Comment on above: Performed By: #### P TINR ####[address] [address] INR Coag (PPP) [Relative time] Canceled Normal [facility] Comment on above: Order Comment: TEST PT/INR WAS CANCELLED, 10/20/2018 16:05 ?Cancel Reason: Cancelled. Performed By: #### P TINR #### [address] [address] PT Coag (PPP) [Time] Canceled Normal [facility] Comment on above: Order Comment: TEST PT/INR WAS CANCELLED, 10/20/2018 16:05 ?Cancel Reason: Cancelled. Performed By: #### P TINR #### [address] [address] Patient Profile - Adult v2on 10-20-2018 Patient Profile - Adult v2 Profile: Initial Info: How to be AddressedBev Spoken Language PreferredEnglish (1) Are you currently using the Personal Electronic Health Record or Appinionsno Are you interested in learning more about [facility] for the management of your healthdeclined Stated Reason for AdmissionSyncope Limitations on Visitors/Phone Callsnone [facility] Employment Statusretired Current or Previous Servicenone Patient Belongingssent home Medications Brought to Hospitalno History of MDROno General Health: Weight in kg99 kilogram(s) Weight in dox279.2 pound(s) Height in feet5 feet Height in [...] in Mood/Behaviordenies Major Change/Loss/Stressor /Fearsdenies Techniques to Lignum with Loss/Stress/Changeme ditation Substance: Current or Former [...] Significant Exposurenone Resource/Environment al Concernsnone [facility] Anticipated at Transitionnone Significant IndicatorsComplete Information [...] - Preop v2 10/05/2018 7:24 AM Normal [facility] TROPONIN Ion 10-20-2018 Troponin I.cardiac [Mass/Vol] Canceled Normal [facility] Comment on above: Order Comment: per Nolvia [...] is performed using different testing methodology at [facility] than at [facility]. Direct result comparisons should only be made within the same method. Performed By: #### T ROP2 ####[id number] [place] [address] Troponin I.cardiac [Mass/Vol] ng/mL Normal 0.00 - 0.03 [facility] Comment on above: Result Comment: LESS THAN [...] is performed using different testing methodology at [facility] than at [facility]. Direct result comparisons should only be made within the same method. Performed By: #### T ROP2 ####[id number] [place] [address] Troponin I.cardiac [Mass/Vol] Canceled Normal [facility] Comment on above: Order Comment: TEST TROPONIN [...] is performed using different testing methodology at [facility] than at [facility]. Direct result comparisons should only be made within the same method. Performed By: #### T ROP2 ####[address] [place] [address] TYPE + SCREENon 10-20-2018 ABO TYPE O Normal [facility] Comment on above: Performed By: #### T +S ####[address] [place] [address] RH TYPE Positive Normal [facility] Comment on above: Performed By: #### T +S ####[address] [place] [address] ABO TYPE Canceled Normal [facility] Comment on above: Order Comment: TEST TYPE + SCREEN WAS CANCELLED, 10/20/2018 16:05 ?Cancel Reason: Cancelled. Performed By: #### T +S #### [address] [place] [address] RH TYPE Canceled Normal [facility] Comment on above: Order Comment: TEST TYPE + SCREEN WAS CANCELLED, 10/20/2018 16:05 ?Cancel Reason: Cancelled. Performed By: #### T +S #### [address] [place] [address] Alk Phos Isoenzymeson 2017 Alk-Phosphatase Bone 60 U/L High 0-55 [facility] Comment on above: Performed By: #### 1 [id number] #### [facility] [address] [place] [address] Alk-Phosphatase Liver 82 U/L Normal 0-94 [facility] Comment on above: Result Comment: INTE RPRETIVE INFORMATION: Alk-Phosphatase Liver Calc Bone Specific Alkaline Phosphatase (8820495) and 5'-nucleotidase ([id number]) may be useful in identifying disorders of bone and liver, respectively. Performed By: #### 1 [id number] #### [facility] [address] [place] [address] Alk-Phosphatase Other 0 U/L Normal [facility] Comment on above: Result Comment: Perf ormed by [email or web address], [address] [facility],[place] [address] www.[employer], Sedrick Sue MD - Lab. Director Performed By: #### 1 [id number] #### [facility] [address] [place] [address] ALP enzyme act/vol 142 U/L High 40-120 [facility] Comment on above: Performed By: #### 1 [id number] #### [facility] [address] [place] [address] Dnoef-4-Stodnxlvhhl, Totalon 07-28-2017 Ahlxm-9-Pofklxupqgp, Total 125 mg/dL Normal 84-218 [facility] Anti-Nuclear Ab Titer w/ALIYAH Panelon 07-28-2017 Anti-Nuclear Ab (GILL) Pattern HOMOGENEOUS Normal [facility] Anti-Nuclear Ab Titer 1:40 Normal [facility] Centromere (ALIYAH) Ab, IgG 0.2 AI Normal [facility] Comment on above: Result Comment: REF VALUES < 1.0 = NEGATIVE >=1.0 = POSITIVE Chromatin (ALIYAH) Ab, IgG <0.2 [facility] Comment on above: Result Comment: REF VALUES < 1.0 = NEGATIVE >=1.0 = POSITIVE dsDNA Ab, IgG <1.0 [facility] Comment on above: Result Comment: REF VALUES NEGATIVE: <= 4 IU/ML EQUIVOCAL: 5- 9 IU/ML POSITIVE: >=10 IU/ML PARISA-1 (ALIYAH) Ab, IgG <0.2 [facility] Comment on above: Result Comment: REF VALUES < 1.0 = NEGATIVE >=1.0 = POSITIVE Ribonucleic Prot (ALIYAH) Ab, IgG <0.2 Normal [facility] Comment on above: Result Comment: REF VALUES < 1.0 = NEGATIVE >=1.0 = POSITIVE Ribosomal P Prot (ALIYAH) Ab, IgG <0.2 Normal [facility] Comment on above: Result Comment: REF VALUES < 1.0 = NEGATIVE >=1.0 = POSITIVE Scleroderma (Scl-70) (ALIYAH) Ab, IgG <0.2 Normal [facility] Comment on above: Result Comment: REF VALUES < 1.0 = NEGATIVE >=1.0 = POSITIVE Alcazar (ALIYAH) Ab, IgG <0.2 Normal [facility] Comment on above: Result Comment: REF VALUES < 1.0 = NEGATIVE >=1.0 = POSITIVE Alcazar/RAILROAD BAGGAGE PORTER (ALIYAH) Ab, IgG <0.2 Normal [facility] Comment on above: Result Comment: REF VALUES < 1.0 = NEGATIVE >=1.0 = POSITIVE SSA (Ro) (ALIYAH) Ab, IgG <0.2 Normal [facility] Comment on above: Result Comment: REF VALUES < 1.0 = NEGATIVE >=1.0 = POSITIVE SSB (La) (ALIYAH) Ab, IgG <0.2 Normal [facility] Comment on above: Result Comment: REF VALUES < 1.0 = NEGATIVE >=1.0 = POSITIVE Anti-Nuclear Ab W/Rfx to Tit er, ENAon 07-28-2017 Anti-Nuclear Ab, W/Rfx to Titer Positive Abnormal NEGATIVE [facility] Ceruloplasminon 07-28-2017 Ceruloplasmin 30 mg/dL Normal 20-60 [facility] Ferritinon 07-28-2017 Ferritin mass conc 348 ng/mL High 8-150 [facility] Comment on above: Performed By: #### 1 [id number] #### [facility] [address] [place] [address] Hepatic Function Panelon Albumin mass conc 4.1 g/dL Normal 3.4-5.0 [facility] Comment on above: Performed By: #### 1 [id number] #### [facility] [address] [place] [address] Albumin/Globulin mass ratio 1.4 {ratio} Normal 0.9-2.4 [facility] Comment on above: Performed By: #### 1 [id number] #### [facility] [address] [place] [address] ALP enzyme act/vol 141 U/L High 45-117 [facility] Comment on above: Performed By: #### 1 [id number] #### [facility] [address] [place] [address] ALT enzyme act/vol 44 U/L Normal 7-45 [facility] Comment on above: Performed By: #### 1 [id number] #### [facility] [address] [place] [address] AST enzyme act/vol 29 U/L Normal 13-39 [facility] Comment on above: Performed By: #### 1 [id number] #### [facility] [address] [place] [address] Bilirubin mass conc 0.3 mg/dL Normal 0.0-1.2 [facility] Comment on above: Performed By: #### 1 [id number] #### [facility] [address] [place] [address] Bilirubin.direct mass conc 0.1 mg/dL Normal 0.0-0.3 [facility] Comment on above: Performed By: #### 1 [id number] #### [facility] [address] [place] [address] Protein mass conc 7.0 g/dL Normal 6.4-8.2 [facility] Comment on above: Performed By: #### 1 [id number] #### [facility] [address] [place] [address] Hepatitis A Total Abon 07-28 Hepatitis A Total Ab REACTIVE Abnormal NONREACTIVE [facility] Comment on above: Result Comment: Shannon ents receiving more than 5 mg/day of biotin may have interf in test results. A sample should be taken no sooner than eight after previous dose. Contact [phone] for additional infor Hepatitis B Core Antibodies, Totalon 07-28-2017 Hepatitis B Core Antibodies, Total NONREACTIVE Normal NONREACTIVE [facility] Comment on above: Result Comment: Shannon ents receiving more than 5 mg/day of biotin may have interf in test results. A sample should be taken no sooner than eight after previous dose. Contact [phone] for additional infor Hepatitis B Surface Abon Hepatitis B Surface Ab <3.1 Normal <10 [facility] Comment on above: Result Comment: INTE RPRETIVE CRITERIA: <10 mIU/mL....NONREACTIVE >=10 mIU/mL...REACTIVE . Patients receiving more than 5 mg/day of biotin may have interf in test results. A sample should be taken no sooner than eight after previous dose. Contact [phone] for additional infor Hepatitis B Surface Antigeno n 07-28-2017 Hepatitis B Surface Antigen NONREACTIVE Normal NONREACTIVE [facility] Comment on above: Result Comment: Shannon ents receiving more than 5 mg/day of biotin may have interf in test results. A sample should be taken no sooner than eight after previous dose. Contact [phone] for additional infor Hepatitis C Antibody w/rfx t o Confirmon 07-28-2017 Hepatitis C Antibody NON-REACTIVE Normal NONREACTIVE [facility] Comment on above: Result Comment: Shannon ents receiving more than 5 mg/day of biotin may have interf in test results. A sample should be taken no sooner than eight after previous dose. Contact [phone] for additional infor Iron Profileon 07-28-2017 Iron Binding Capacity 331 ug/dL Normal 250-565 [facility] Comment on above: Performed By: #### 1 [id number] #### [facility] [address] [place] [address] Iron mass conc 72 ug/dL Normal 35-150 [facility] Comment on above: Performed By: #### 1 [id number] #### [facility] [address] [place] [address] Percent Saturation 22 % Normal 14-27 [facility] Comment on above: Performed By: #### 1 [id number] #### [facility] [address] [place] [address] Unbound Iron Binding Capacity 259 ug/dL Normal 90-340 [facility] Comment on above: Performed By: #### 1 [id number] #### [facility] [address] [place] [address] Mitochondrial M2 Ab, IgGon 0 07-28-2017 Mitochondrial M2 Ab, IgG 3.0 Units Normal 0.0-20.0 [facility] Comment on above: Result Comment: INTE RPRETIVE INFORMATION: Mitochondrial (M2) Antibody, IgG 20.0 Units or less ......... Negative 20.1 - 24.9 Units........... Equivocal 25.0 Units or greater....... Positive Performed by [email or web address], [address] [place] [address] www.[employer], Sedrick Sue MD - Lab. Director Performed By: #### 1 [id number] #### MARY [address] [place] [address] Smooth Muscle (F-Actin) IgG w/Rfxon 07-28-2017 Smooth Muscle Ab, IgG Positive Normal NEGATIVE [facility] Smooth Muscle Ab, IgG Titer 1:20 Normal [facility] PROGRESSon 04-21-2017 [facility] NOTES Normal [facility] Vital Signs Date Time Vital Sign Value Performing Clinician Facility 06-07-2024 10:16-0500 Body height 160 cm Bobbi Barker MD Work Phone: [facility] 06-07-2024 10:16-0500 Body mass index (BMI) [Ratio] 34.54 kg/m2 Bobbi Barker MD Work Phone: [facility] 06-07-2024 10:16-0500 Body weight 88.45 kg Bobbi Barker MD Work Phone: [facility] 06-07-2024 10:16-0500 Diastolic blood pressure 64 mm[Hg] Bobbi Barker MD Work Phone: [facility] 06-07-2024 10:16-0500 Heart rate 76 /min Bobib Barker MD Work Phone: [facility] 06-07-2024 10:16-0500 Respiratory rate 16 /min Bobbi Barker MD Work Phone: [facility] 06-07-2024 10:16-0500 SaO2% (BldA) [Mass fraction] 96 % Bobbi Barker MD Work Phone: [facility] 06-07-2024 10:16-0500 Systolic blood pressure 112 mm[Hg] Bobbi Barker MD Work Phone: [facility] 05-12-2023 09:24-0500 Body height 158.8 cm Michael Villa DO Work Phone: [facility] 05-12-2023 09:24-0500 Body mass index (BMI) [Ratio] 34.56 kg/m2 Michael Villa DO Work Phone: [facility] 05-12-2023 09:24-0500 Body temperature 98.1 [degF] Michael Villa DO Work Phone: [facility] 05-12-2023 09:24-0500 Body weight 87.09 kg Michael Villa DO Work Phone: [facility] 04-08-2023 15:06-0500 Diastolic blood pressure 71 mm[Hg] MD Bree Ambrose Work Phone: [facility] 04-08-2023 15:06-0500 Heart rate 75 /min MD Bree Ambrose Work Phone: [facility] 04-08-2023 15:06-0500 Respiratory rate 18 /min MD Bree Ambrose Work Phone: [facility] 04-08-2023 15:06-0500 SaO2% (BldA) [Mass fraction] 97 % MD Bree Ambrose Work Phone: [facility] 04-08-2023 15:06-0500 Systolic blood pressure 163 mm[Hg] MD Bree Ambrose Work Phone: [facility] 04-08-2023 13:28-0500 Body height 160.02 cm MD Bree Ambrose Work Phone: [facility] 04-08-2023 13:28-0500 Body temperature 98.2 [degF] MD Bree Ambrose Work Phone: [facility] 04-08-2023 13:28-0500 Body weight 88.45 kg MD Bree Ambrose Work Phone: [facility] Encounters Encounter Date Encounter Type Care Provider Facility Start: 11-20-2024 End: 11-20-2024 Bamboo flowsheet [facility] Start: 11-20-2024 End: 11-20-2024 Bamboo flowsheet Harris F[facility] MD [facility] Start: 11-20-2024 End: 11-20-2024 Postop follow up visit related to original px Harris Foley MD Work Phone: [facility] Comment on above: Encounter for remova l of sutures (Primary Dx) Start: 11-20-2024 End: 11-20-2024 ambulatory HARRIS FOLEY Not Available Start: 11-06-2024 End: 11-06-2024 Patient encounter procedure Harris Foley MD Work Phone: [facility] Comment on above: Basal cell carcinoma (BCC) of chest (Primary Dx) Start: 11-06-2024 End: 11-06-2024 ambulatory HARRIS FOLEY Not Available Start: 11-06-2024 End: 11-06-2024 Bamboo flowssatnam Foley MD Work Phone: [facility] Start: 11-06-2024 End: 11-06-2024 Bamboo flowssatnam Foley MD Work Phone: [facility] Start: 11-03-2024 End: 11-03-2024 Bamboo flowsheet Shelton Triana DPM Work Phone: [facility] Start: 11-03-2024 End: 11-03-2024 Bamboo flowsheet Shelton Triana DPM Work Phone: [facility] Start: 11-03-2024 End: 11-03-2024 Patient encounter procedure Shelton Triana DPM Work Phone: [facility] Comment on above: 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); Pre-ulcerative calluses; Hallux valgus of right foot; Hallux valgus of left foot; Hammertoe of right foot; Hammertoe of left foot; 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; Plantar fat pad atrophy of left foot Start: 11-03-2024 End: 11-03-2024 ambulatory SHELTON TRIANA Not Available Start: 09-29-2024 End: 09-29-2024 Bamboo flowsheet Joselo Thrasher COUNTY ENGINEER-RESOURCE DEVELOPMENT MANAGER Work Phone: [facility] Start: 09-29-2024 End: 09-29-2024 Bamboo flowsheet Joselo Thrasher COUNTY ENGINEER-RESOURCE DEVELOPMENT MANAGER Work Phone: [facility] Start: 09-29-2024 End: 09-29-2024 Office outpatient visit 15 minutes Joselo Thrasher COUNTY ENGINEER-RESOURCE DEVELOPMENT MANAGER Work Phone: [facility] Comment on above: Seborrheic keratosis (Primary Dx); Capillary angioma; Lentigines; History of basal cell carcinoma; Actinic keratosis; Neoplasm of unspecified behavior of bone, soft tissue, and skin Start: 09-29-2024 End: 09-29-2024 ambulatory JOSELO THRASHER Not Available Start: 09-11-2024 End: 09-11-2024 ambulatory Arley Keller Facility:[facility] Start: 09-11-2024 End: 09-11-2024 Patient encounter procedure Arley Keller [facility] Start: 08-31-2024 End: 08-31-2024 Lab Drop off Arley Keller [facility] Start: 08-31-2024 End: 08-31-2024 ambulatory Arley Keller Facility:[facility] Start: 07-07-2024 End: 07-07-2024 Bamboo flowsheet Shelton Triana DPM Work Phone: [facility] Start: 07-07-2024 End: 07-07-2024 Bamboo flowsheet Shelton Triana DPM Work Phone: [facility] Start: 07-07-2024 End: 07-07-2024 Office outpatient visit 15 minutes Shelton Triana DPM Work Phone: [facility] Comment on above: 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 (CMS/HCC); Pre-ulcerative calluses; Hallux valgus of right foot; Hallux valgus of left foot; Hammertoe of right foot; Hammertoe of left foot; Tailor's bunion of right foot; Tailor's bunion of left foot; Left foot pain; Pain of right foot Start: 07-07-2024 End: 07-07-2024 ambulatory SHELTON TRIANA Not Available Start: 06-15-2024 End: 06-15-2024 ambulatory Randolph Shah Facility:[facility] Start: 06-15-2024 End: 06-15-2024 Patient encounter procedure Randolphelliott Shah [facility] Start: 06-07-2024 End: 06-07-2024 Bamboo flowsheet Bobbi Barker MD Work Phone: [facility] Start: 06-07-2024 End: 06-07-2024 Bamboo flowsheet Bobbi Barker MD Work Phone: [facility] Start: 06-07-2024 End: 06-07-2024 Office outpatient visit 25 minutes Bobbi Barker MD Work Phone: [facility] Comment on above: Type 2 diabetes adela itus with hyperglycemia, with long-term current use of insulin (CMS/HCC) (Primary Dx); Vitamin D deficiency; Insulin long-term use (CMS/HCC); Primary hypertension (CMS/HCC); Hyperlipemia, mixed (CMS/[facility]); Encounter for dietary consultation; Class 1 obesity due to excess calories with serious comorbidity and body mass index (BMI) of 34.0 to 34.9 in adult Start: 06-07-2024 End: 06-07-2024 ambulatory BOBBI BARKER Not Available Start: 06-02-2024 End: 06-02-2024 ambulatory Arley Keller Facility:[facility] Start: 05-09-2024 End: 05-09-2024 Patient encounter procedure Arley Keller MD Work Phone: [facility] [address] Work Phone: Start: 05-09-2024 End: 05-09-2024 ambulatory Arley Keller MD Work Phone: [facility] Work Phone: Start: 05-05-2024 End: 05-05-2024 ambulatory Arley Keller Facility:[facility] Start: 05-05-2024 End: 05-19-2024 Patient encounter procedure Randolph Nolvia Shah [facility] Start: 04-25-2024 End: 04-25-2024 Patient encounter procedure Arley Keller MD Work Phone: [facility] [address] Work Phone: Start: 04-25-2024 End: 04-25-2024 ambulatory Arley Keller MD Work Phone: [facility] Work Phone: Start: 02-29-2024 End: 02-29-2024 ambulatory Arley Keller Facility: [facility] Start: 12-21-2023 End: 12-21-2023 Lab Drop off Arley Keller [facility] Start: 12-21-2023 End: 12-21-2023 ambulatory Arley Keller Facility:[facility] Start: 12-16-2023 End: 12-16-2023 ambulatory Micaela Palomino Facility: [facility] Start: 11-08-2023 End: 11-08-2023 ambulatory E[facility] Start: 08-31-2023 End: 08-31-2023 Lab Drop off Arley Keller [facility] Start: 08-31-2023 End: 08-31-2023 ambulatory Arley Keller Facility:[facility] Start: 07-09-2023 End: 07-09-2023 ambulatory RICKY VALDIVIA Facility: [facility] Start: 05-12-2023 Cherrie santana DO Work Phone: [facility] Start: 05-12-2023 Bamboo flowsheet Michael Linda ers DO Work Phone: [facility] Start: 05-12-2023 End: 05-12-2023 Patient encounter procedure Michael Villa DO Work Phone: [facility] Comment on above: Traumatic closed dis placed fracture of right shoulder with anterior dislocation with routine healing, subsequent encounter (Primary Dx) Start: 05-11-2023 End: 05-11-2023 ambulatory Agustín Lacey Facility:[facility] Start: 04-08-2023 End: 04-08-2023 Emergency department patient visit MD Bree Ambrose Work Phone: [facility] Work Phone: Start: 03-16-2023 End: 03-16-2023 ambulatory MD Bree Ambrose Work Phone: [facility] Work Phone: Start: 03-16-2023 End: 03-16-2023 Patient encounter procedure MD Bree Ambrose Work Phone: [facility] [address] Work Phone: Start: 06-30-2022 End: 06-30-2022 Lab Drop off Micaela Palomino [facility] Start: 05-21-2022 End: 05-22-[address] ANTONINA NEWSOME Facility:[facility] Start: 05-14-2022 End: 05-22-[address] BREE AMBROSE . Facility:[facility] Start: 01-22-2022 End: 01-23-[address] BREE AMBROSE . Facility:[facility] Start: 12-23-2021 Office outpatient vi sit 15 minutes Bree Ambrose Work Phone: VN[facility]Gfoorowcmvfhxlzj[facility] [facility] Work Phone: Start: 12-23-[address] Ary Arrieta [facility] ility:[id number] Start: 12-02-2021 Patient encounter procedure Bree Ambrose Work Phone: QG-Ngryfufxfl-Zlrhnq 101 Work Phone: Start: 11-14-2021 End: 12-10-[address] BREE AMBROSE . Facility:[facility] Start: 02-11-2021 Patient encounter procedure Bree Ambrose Work Phone: GG-Fwlllttxzpovytsj-Hfx [address] [address] [facility] Work Phone: Start: 02-11-[address] [facility] Facility:[id number] Start: 06-01-2018 Patient encounter procedure PROVIDER UNKNOWN Facility:7 Start: 09-09-2017 Patient encounter procedure PROVIDER UNKNOWN Facility:7 Start: 08-04-2017 Patient encounter procedure PROVIDER UNKNOWN Facility:7 Start: 07-28-2017 Patient encounter procedure PROVIDER UNKNOWN Facility:7 Start: 07-28-2017 Patient encounter procedure PROVIDER UNKNOWN Facility:7 Start: 04-21-2017 Ambulatory [facility] Procedures Date Procedure Procedure Detail Performing Clinician Start: 11-06-2024 SKIN REPAIR Harris cantu MD Work Phone: Start: 11-06-2024 SKIN EXCISION Harris wong MD Work Phone: Start: 09-29-2024 SKIN / NAIL BIOPSY Apurva lie A Anna Marie COUNTY ENGINEER-RESOURCE DEVELOPMENT MANAGER Work Phone: Start: 09-29-2024 CRYOTHERAPY SKIN LESION Joselo Thrasher COUNTY ENGINEER-RESOURCE DEVELOPMENT MANAGER Work Phone: Start: 06-07-2024 Gluc bld gluc mntr d ev cleared fda spec home use Bobbi Barker MD Work Phone: Start: 05-12-2023 Radex shoulder compl ete minimum 2 views Michael Villa DO Work Phone: Start: 04-08-2023 End: 04-08-2023 Plain X-ray of right shoulder MD Bree Ambrose Work Phone: Start: 01-20-2021 Blepharoplasty of up per eyelid Micaela Candelario Start: 10-20-2018 Antibody screen Comment on above: Performed By: #### T +S ####[address] [place] [address] Start: 10-20-2018 Antibody screen Comment on above: Order Comment: TEST TYPE + SCREEN WAS CANCELLED, 10/20/2018 16:05 ?Cancel Reason: Cancelled. Performed By: #### T +S #### [address] [place] [address] Start: 04-05-2016 History of placement of stent for coronary artery disease Randolph Delacruzrafael Start: 08-03-2014 History of placement of stent for coronary artery disease History of heart artery stent Bobbi Barker MD Work Phone: Appendectomy Micaela Candelario Arthroplasty of knee Micaela [...] Total hysterectomy Arley Ro ss Total Knee Replaceme nt Left Bree Ambrose Work Phone: Plan of Treatment Date Care Activity Detail Author Start: 09-27-2025 End: 09-27-2025 Patient encounter procedure [facility] Start: 12-18-2024 ambulatory Ambulatory Facility:[facility] Start: 12-06-2024 End: 12-06-2024 Patient encounter procedure 12/06/2024 9:50 AM EDT Office Visit [facility] [address] [place] [address] Bobbi Barker MD [address] [place] [address] [facility] Start: 11-30-2024 End: 11-30-2024 Patient encounter procedure 11/30/2024 10:20 AM EDT [facility] [address] [place] [address] Bobbi Barker MD [address] [place] [address] [facility] Start: 11-24-2024 End: 11-24-2024 Patient encounter procedure 11/24/2024 11:15 AM EDT [facility] [address] [place] [address] Shelton Triana, DPM [address] [place] [address] [facility] [place] [facility] Start: 11-20-2024 End: 11-20-2024 Patient encounter procedure [facility] Comment on above: Arrived Start: 11-06-2024 End: 11-06-2024 Patient encounter procedure [facility] [place] [facility] Comment on above: Arrived Start: 11-03-2024 End: 11-03-2024 Patient encounter procedure 11/03/2024 10:30 AM EDT Office Visit [facility] [place] [facility] [address] [place] [address] Shelton Triana, DPM [address] [place] [address] Arrived [facility] Comment on above: Arrived Start: 09-29-2024 End: 09-29-2024 [facility] Comment on above: Arrived Start: 07-07-2024 End: 07-07-2024 Patient encounter procedure 07/07/2024 8:15 AM EDT Office Visit [facility] [address] [place] [phone] Shelton Triana, DPM [address] [place] [address] [facility]rived [facility] Comment on above: Arrived Start: 06-07-2024 End: 06-07-2024 Patient encounter procedure 06/07/2024 10:20 AM EST [facility] [address] [place] [phone] Bobbi Barker MD [address] [place] [address] [facility] Comment on above: Arrived Start: 09-27-2023 End: 09-27-2023 Patient encounter procedure 09/27/2023 10:55 AM EDT Office Visit [facility] [address] [place] [phone] Joselo Thrasher, COUNTY ENGINEER-RESOURCE DEVELOPMENT MANAGER [address] [place] [address] [facility] Start: 06-23-2023 End: 06-23-2023 Patient encounter procedure 06/23/2023 9:30 AM EDT Office Visit [facility] [address] [place] [address] Michael Villa, [address] [place] [address] [facility] Start: 06-17-2023 End: 06-17-2023 Patient encounter procedure 06/17/2023 11:00 AM EDT Office Visit [facility] [address] [place] [address] Shelton Triana, MARTINA [address] [place] [address] [facility] Start: 05-12-2023 End: 05-12-2023 Patient encounter procedure 05/12/2023 9:45 AM EST Office Visit [facility] [address] [place] [phone] Michael Villa, DO [address] [facility] [place] [address] Traumatic closed displaced fracture of right shoulder with anterior dislocation with routine healing, subsequent encounter (Primary Dx) [facility] Comment on above: Traumatic closed displaced fracture of r ight shoulder with anterior dislocation with routine healing, subsequent encounter (Primary Dx) Start: 12-23-2021 GENTRY, Provider: Kenroy Low, Status: Pen, Time: 2:40 PM GENTRY, Provider: Kenroy Low, Status: Pen, Time: 2:40 PM YF-Aeyzbtrqee-Dpnutj [address] Work Phone: Dermatopathology exam Dermatopat hology exam Pathology and Cytology Timed Neoplasm of unspecified behavior of bone, soft tissue, and skin Release Upon Ordering for 1 Occurrences starting 09/29/2024 [facility] [employer] Work Phone: Comment on above: Release Upon Ordering for 1 Occurrences starting 09/29/2024 Dermatopathology exam Dermatopat hology exam Pathology and Cytology Timed Basal cell carcinoma (BCC) of chest Release Upon Ordering for 1 Occurrences starting 11/06/2024 [facility] [employer] Work Phone: Comment on above: Release Upon Ordering for 1 Occurrences starting 11/06/2024 Patient Education Shoulder Dislocation [facility] Work Phone: Patient referral [facility] Work Phone: Immunizations Immunization Date Immunization Notes Care Provider Vamsi peña 12-27-2023 influenza virus vaccine, unspecified formulation Randolph Shah [facility] 12-22-2022 influenza virus vaccine, unspecified formulation Arley Keller [facility] 12-22-2022 Influenza, Seasonal, Quadrivalent, Adjuvanted Bobbi Barker MD Work Phone: [facility] 01-22-2022 influenza virus vaccine, unspecified formulation Micaela Candelario [facility] 01-22-2022 Influenza, Seasonal, Quadrivalent, Adjuvanted Bobbi Barker MD Work Phone: [facility] 01-17-2020 Fluad Quadrivalent 0 .5 ML Intramuscular Prefilled Syringe Bree E Ambrose Work Phone: [facility] 01-17-2020 influenza virus vaccine, unspecified formulation Micaela Candelario [facility] 01-04-2019 influenza virus vaccine, unspecified formulation Micaela Candelario [facility] 01-04-2019 Seasonal trivalent influenza vaccine, adjuvanted, preservative free Bree E Ambrose Work Phone: [facility] Work Phone: 12-31-2017 influenza virus vaccine, unspecified formulation Micaela Candelario [facility] 12-31-2017 Influenza, injectabl e, Madin [place] Canine Kidney, preservative free, quadrivalent Bree E Ambrose Work Phone: CO-Xwginlmewa-Cvvs ia 101 Work Phone: 02-16-2017 influenza virus vaccine, unspecified formulation Micaela Candelario [facility] 02-16-2017 influenza, injectabl e, quadrivalent, preservative free Bree E Ambrose Work Phone: LN-Utppbesibc-Cjfa ia [address] Work Phone: 04-05-2015 pneumococcal polysaccharide vaccine, 23 valent Bree Venegasight Work Phone: [facility] 02-03-2015 influenza virus vaccine, unspecified formulation Arley Keller [facility] 02-03-2015 influenza, injectabl e, madin tejas canine kidney, preservative free Bree Venegasight Work Phone: OQ-Dqzotdkvcl-Ljot ia 101 Work Phone: 11-21-2014 pneumococcal conjuga te vaccine, 13 valent Bree Cisneros Halie Work Phone: [facility] NEGATED: Highlighted row has not occurred!08-04-2022 SARS-CoV-2 mRNA (tozinameran 5y-11y) vaccine Arley Keller [facility] Payers Date Payer Category Payer Self-pay [id number] 2024 Medicare (Managed Care) [facility] [id number] 2024 Private Health Insurance [id number] 2022 Medicare [id number] 1959 Medicare [id number] 1959 Unknown [id number] 1959 Unknown [id number] 1953 Unknown [id number] 2.16.840.1.782500.3.579. 2.355 1953 Unknown [id number] 2.16.840.1.194725.3.579. 2.355 1953 Unknown [id number] 2.16.840.1.504154.3.579. 2.355 1953 Unknown [id number] 2.16.840.1.152963.3.579. 2.355 1953 Unknown [id number] 2.16.840.1.596925.3.579. 2.355 1953 Unknown [id number] 2.16.840.1.915827.3.579. 2.356 1953 Unknown [id number] 2.16.840.1.812898.3.579. 2.356 1953 Unknown [id number] 2.16.840.1.500698.3.579. 2.593 1953 Unknown [id number] 2.16.840.1.634439.3.579. 2.593 1953 Unknown [id number] 2.16.840.1.963811.3.579. 2.593 1953 Unknown [id number] 2.16.840.1.190595.3.579. 2.593 1953 Unknown [id number] 2.16.840.1.530222.3.579. 2.727 1953 Unknown [id number] 2.16.840.1.771703.3.579. 2.727 1953 Unknown [id number] 2.16.840.1.389747.3.579. 2.727 1953 Unknown [id number] 2.16.840.1.184318.3.579. 2.727 1953 Unknown [id number] 2.16.840.1.281019.3.579. 2. 1953 Unknown [id number] 2.16.840.1.724894.3.579. 2. 1953 Unknown [id number] 2.16.840.1.302095.3.579. 2. 1953 Unknown [id number] 2.16.840.1.784112.3.579. 2. 1953 Unknown [id number] 2.16.840.1.966592.3.579. 2. 1953 Unknown [id number] 2.16.840.1.123066.3.579. 2. 1953 Unknown [id number] 2.16.840.1.006243.3.579. 2. 1953 Unknown [id number] 2.16.840.1.829930.3.579. 2. 1953 Unknown [id number] 2.16.840.1.434640.3.579. 2. 1953 Unknown [id number] 2.16.840.1.399634.3.579. 2. 1953 Unknown [id number] 2.16.840.1.794486.3.579. 2. 1953 Unknown [id number] 2.16.840.1.482893.3.579. 2.1258 1953 Unknown [id number] 2.16.840.1.864873.3.579. 2.1258 1953 Unknown [id number] 2.16.840.1.805838.3.579. 2.1258 1953 Unknown [id number] 2.16.840.1.152538.3.579. 2.1259 1953 Unknown [id number] 2.16.840.1.920086.3.579. 2.1259 1953 Unknown [id number] 2.16.840.1.986285.3.579. 2.1259 Unknown [id number] Unknown Unknown [id number] Unknown [id number] 2.16.840.1.162529.3.579. 2.531 Unknown [id number] 2.16.840.1.847436.3.579. 2.531 Social History Date Type Detail Facility Start: 04-21-2023 End: 11-20-2024 No illicit drug use No illicit drug use [facility] [address] Work Phone: Start: 06-30-2022 End: 08-31-2024 Tobacco smoking status Never smoked tobacco (finding) [facility] Comment on above: denies use Tobacco smoking status Never [facility] Comment on above: denies use Start: 04-21-2023 End: 11-20-2024 Sex Assigned At Female [facility] Start: 1955 Sex Assigned At Female [facility] Start: 04-21-2023 End: 09-17-2023 Tobacco smoking status CAIS Ex-smoker [facility] Start: 06-03-1964 End: 06-04-1979 History of tobacco use Current smoker [facility] Start: 06-03-1964 End: 06-04-1979 History of tobacco use Cigarette Smoker [facility] Start: 04-21-2023 End: 09-17-2023 Tobacco use and exposure Smokeless tobacco non-user [facility] Start: 04-21-2023 End: 11-20-2024 Alcohol intake Lifetime non-drinker (finding) [facility] Start: 09-19-2022 Alcohol Comment Caffeine: soda [facility] Start: 04-17-2023 Gender identity Identifies as female gender (finding) [facility] Start: 04-17-2023 Sexual orientation Heterosexual (fin ding) [facility] Start: 12-17-2020 End: 04-26-2024 Sex Female (finding) [facility] Sexual Orientation [facility] Clinical Notes 05-12-2023 to 11-20-2024 Harris Foley MD - 11/20/2024 11:00 AM Cassy Foley MD - 11/06/2024 3:30 PM Heriberto Triana DPM - 11/03/2024 10:30 AM ANTONIA Benitez CNP - 09/29/2024 10:50 AM EDTRadiology Note Date & Type Note Facility 11-20-2024 History of Present illness Narrative Images from [...] discontinue wound care., Instructed to keep steri strips on for at least 5-7 days., Pathology results discussed. Next Visit: as scheduled documented in this encounter [facility] 11-06-2024 History of Present illness Narrative Images from the original note were not included. Tato Doll is a 69 y.o. female who presents for the following: Excision. Location: med chest Date of biopsy: 09/29/2024 Diagnosis: Basal cell carcinoma, superficial multicentric and nodular types Pre-Op Checklist: History of pacemaker/defibrillator: No History of joint replacement in the past 2 years: Yes, knee and hip >2 years History of HIV/Hepatitis B/Hepatitis C: No Latex allergy: No Is the patient currently on a blood thinner? Yes. Aspirin. The patient was recommended to continue taking their blood thinner as usual before, during, and after the procedure. All pertinent medical history, medications, and allergies were reviewed. Surgical assistants: Margarita Albrecht CMA and Cedric Hernandes LPN Objective Well appearing patient in no apparent distress; mood and affect are within normal limits. Skin Exam 1. BASAL CELL CARCINOMA (BCC) OF CHEST Med chest Lead macule at the biopsy site. Skin excision Lesion length (cm): 0.7 Lesion width (cm): [...] ml Estimated blood loss: < 1.0 ml Skin repair Complexity: Intermediate Final length (cm): 3.3 Reason [...] uncontrollable bleeding, or complications. Dressing type: bandage Specimen A - Dermatopathology exam Differential Diagnosis: BCC, superficial multicentric and nodular types Check Margins: yes Previous accession number: [id number] Diagnosis: (C44.519) Basal cell carcinoma (BCC) of chest Plan: Skin excision Excision today. See operative report. Return to clinic prior to next scheduled visit for any signs or symptoms of recurrence, reviewed the signs and symptoms. Follow up: 14 days for s/r documented in this encounter [facility] 11-03-2024 History of Present illness Narrative Images from the original note were not included. Reason for Appointment Established Patient: To obtain her diabetic shoes and custom diabetic orthotics History of Present Illness Established Patient presents to obtain her diabetic shoes and custom diabetic orthotics. AM glucose: 160. Review of Systems General: Chills denies. Fatigue denies. Fever denies. Night sweats denies. Endocrine: Hyperpigmentation denies. Diabetes admits. Weakness denies. Cardiovascular: Chest pain denies. Shortness of breath denies. Gastrointestinal: Constipation denies. Diarrhea denies. Nausea denies. Vomiting denies. Hematology: Anemia denies. Bleeding problems denies. Easy bruising denies. Musculoskeletal: Bone/joint symptoms denies. Leg cramps denies. Peripheral Vascular: Edema denies. Rest pain denies. Varicose veins denies. Raynaud's denies. Skin: Ulceration denies. Nail changes denies. Rash denies. Skin lesion(s) admits. Neurologic: Dizziness denies. Gait abnormality denies. Headache denies. Tingling/Numbness denies. Examination General Examination: GENERAL EXAMINATION: awake, aware of surroundings, in no acute distress. FOOT EXAM: Date of Last Foot Exam 07/07/2024 Sensory testing performed: sensations diminished Sensory and motor testing performed: strength normal Pedal pulse taking performed: 2+ Vascular: DORSALIS PEDIS PULSE: bilaterally, 2/4. POSTERIOR TIBIAL PULSE: 2/4 right and 1/4 left. TEMPERATURE GRADIENT: warm to cool. EDEMA:none. VARICOSITIES: present bilaterally. CAPILLARY FILLING TIME(sec): capillary fill intact bilateral digits immediate. Neurologic: VIBRATORY: diminished to the bilateral lower extremity from mid-tibia distally. SEMMES-ALDO 5.07 MONOFILAMENT: diminished to the bilateral foot. NEUROLOGIC: peripheral neuropathy to the bilateral lower extremity. A little bit of instability /balance issues sometimes but not all of the time. Dermatologic: SKIN FINDINGS: Skin is thin, shiny, atrophic and dry with absent pedal hair bilateral foot. Venous insufficiency to the bilateral lower extremity. HYPERKERATOSIS: pre-ulcerative Callus: bilateral foot first MPJ region. NAIL PATHOLOGY: toenails 1-5 intact bilaterally with superficial onychomycosis to toenails 2-4 left and 1 right. ULCER: Previous ulcers to the left dorsal second toe DIPJ and left hallux abductovalgus region - remain healed. Ankle / Foot: MUSCLE STRENGTH: 5/5 to major muscle groups, toes weaker. Orthopedic: FOOT MORPHOLOGY: pes plano valgus bilaterallly. JOINT RANGE OF MOTION: Normal . DEFORMITIES: Moderate left hallux valgus, Mild right hallux valgus, bilateral tailors bunion, hammertoes 2-5 bilaterally, left second toe wider than other toes. Fat pad atrophy bilateral forefoot ORTHOPEDIC: ankle joint equinus bilaterally. SHOE GEAR: Slip on casual shoes. Diabetic shoes and custom diabetic orthotics, dispensed today, fit patient well with no signs of rubbing or irritation. Radiologic: ANKLE X-RAYS: 03-12-2021: Left ankle x-rays, weightbearing AP/MORTISE/LAT views, obtained today shows: lateral view shows mild pes planovalgus left foot, first metatarsal was elevated higher than second, posterior calcaneal spur small and moderate plantar calcaneal spur noted. Posterior aspect of talus show spur formation ankle joint looks normal from this view as well as subtalar joint overall mild arthritis potentially. Mortise view shows no significant pathology except for medial prominence of the medial malleolus left ankle or internally there is no sign of talar dome lesion, fracture, dislocation, periosteal reaction, gas, foreign body, infection, or tumor. AP x-ray also shows similar findings is a small calcific portion most likely soft tissue which is round and proximal about 2 cm from the distal fibular tip. This also appreciated in the oblique view. FOOT X-RAYS: 05-13-2020: Left foot x-rays, weightbearing AP/MO views, obtained today shows: AP x-ray shows moderate hallux abductovalgus deformity very prominent medial eminence, spur formation over the base of proximal phalanx left hallux lateral deviation of the hallux on the first metatarsal at approximately 10%. Talus bunion noted with prominent lateral eminence fifth metatarsal head, lesser toes are mildly contracted left fifth toes adductovarus deformity. Patient has slight irregularity to the base of the left foot fifth metatarsal consistent with most likely spur formation or calcific peroneal brevis insertion. Medial oblique view shows similar findings. There is no obvious sign of fracture, dislocation, periosteal reaction, gas, foreign body, infection, or tumor. Assessments 1. Type 2 diabetes mellitus with peripheral neuropathy - E11.42 2. Pre-ulcerative calluses - L84, B/L plantar foot first IM space 3. Hammertoe of left foot - M20.42, Left toes 2-5 4. Hammertoe of right foot - M20.41, Right toes 2-5 5. Risk for falls - Z91.81 6. Balance problem - R26.89 7. Hallux valgus of right foot - M20.11 8. Hallux valgus of left foot - M20.12 9. Acquired equinus deformity of left foot - M21.6X2 10. Acquired equinus deformity of right foot - M21.6X1 11. Tailor's bunion of right foot - M21.621 12. Tailor's bunion of left foot - M21.622 13. Acquired pes planovalgus of right foot - M21.41 14. Acquired pes planovalgus of left foot - M21.42 15. Venous (peripheral) insufficiency - I87.2 16. Asymptomatic varicose veins - I83.90 17. Onychomycosis - B35.1 18. Fat pad atrophy bilateral forefoot Treatment Pre-ulcerative calluses, fat pad atrophy, hallux abductovalgus bilaterally, diabetes mellitus with neuropathy. 1. Patient seen today for follow up examination. 2. Patient advised to always maintain proper diabetic control. 3. Patient was dispensed one pair of extra depth diabetic shoes (A5500), Dr. Sara Roberson #[id number] purple size 11XW, which fit patient well today. Break in instructions and warranty of such were provided to patient. 4. Patient was dispensed one pair of custom diabetic trilaminate foot orthotics (A5513) due to diabetes with peripheral neuropathy, pre-ulcerative calluses, B/L hallux valgus and B/L foot fat pad atrophy, which fit patient well, and was advised about the break-in process, shoe fitting requirements, warranty, and shoes/boots that should be worn that appropriately fit with the orthotics. Patient was advised about possible adjustments/alterations/replacemen ts/outgrow potential/skin irritation/wound(s) potential. Educational typed handouts were dispensed to patient. Patient voiced understanding. 5. Reappoint in 3 weeks for recheck. Diabetes mellitus with neuropathy 1. Patient seen today for follow up examination. 2. Patient advised to always maintain proper diabetic control. 3. Patient was dispensed one pair of extra depth diabetic shoes (A5500), Dr. Sara Roberson #[id number] purple size 11XW, which fit patient well today. Break in instructions and warranty of such were provided to patient. 4. Patient was dispensed one pair of custom diabetic trilaminate foot orthotics (A5513) due to diabetes with peripheral neuropathy, pre-ulcerative calluses, B/L hallux valgus and B/L foot fat pad atrophy, which fit patient well, and was advised about the break-in process, shoe fitting requirements, warranty, and shoes/boots that should be worn that appropriately fit with the orthotics. Patient was advised about possible adjustments/alterations/replacemen ts/outgrow potential/skin irritation/wound(s) potential. Educational typed handouts were dispensed to patient. Patient voiced understanding. 5. Reappoint in 3 weeks for recheck. documented in this encounter [facility] 09-29-2024 History of Present illness Narrative Images from the original note were not included. Skin Check Location: Patient requests a full body skin examination Dermatologic history: history of Basal Cell Carcinoma Last visit: 1 year ago Established patient All pertinent medical history, medications, and allergies were reviewed. General Exam: alert, oriented to person, place, and time, normal affect, well appearing Accompanied by friend Scalp, Examined , exam limited by hair Right leg Examined Head, Face Examined Left leg Examined Neck Examined Right foot Examined Chest Examined Left foot Examined Back Examined Buttocks Examined Patient kept underwear on Abdomen Examined Digits,nails: Examined Right arm Examined Left arm Examined Lymphatics: Not examined Hands Examined Skin Exam 1. SEBORRHEIC KERATOSIS Generalized Stuck on verrucous, cash-brown papules and plaques. Patient was counseled regarding these benign growths. Removal is normally not necessary, but they may be removed if they are symptomatic or for cosmetic reasons. 2. CAPILLARY ANGIOMA Generalized Scattered simental-red papule(s). The patient was informed that angiomas are benign growths on the the skin. No treatment is necessary. 3. LENTIGINES Generalized Scattered cash macules in sun-exposed areas. The patient was informed that lentigines are benign pigmented lesions that occur on sun-exposed and sun-damaged skin. No treatment is necessary. Recommended regular use of broad spectrum sunscreen SPF 30 or higher 4. HISTORY OF BASAL CELL CARCINOMA Dorsum of Nose No evidence of recurrence at BCC scar. The patient was counseled that scars from excisional sites of nonmelanoma skin cancers should be monitored closely for recurrence. The patient was instructed to contact the office for any new, changing, or symptomatic moles. The patient was also instructed to contact the office for any new lesions that develop within or around the previous surgery scar. 5. ACTINIC KERATOSIS Left 2nd Finger Metacarpophalangeal Joint Erythematous scaly papules Patient was counseled regarding these sun-induced growths that can develop into squamous cell carcinoma if left untreated. Discussed treatment with cryotherapy. It was emphasized that any treated lesions that fail to resolve should be re-evaluated. Cryotherapy performed today; see procedure note Diagnosis: Actinic keratosis Indication: Precancerous Location: see skin exam Consent: Verbal consent was obtained and risks were discussed, including, but not limited to risks of scarring, darker or hydraulic tester pigmentary changes, recurrence, incomplete removal and infection. Method: Liquid nitrogen was used to treat the lesion(s) with two 5-10 second freeze-thaw cycles. Number of lesions treated: 1 Post-procedure instructions: Instructions were given orally and in writing. The office will be contacted if the lesion fails to resolve despite treatment, or if a side effect develops such as abnormal crusting, scabbing, redness or tenderness Cryotherapy, skin lesion - Left 2nd Finger Metacarpophalangeal Joint 6. NEOPLASM OF UNSPECIFIED BEHAVIOR OF BONE, SOFT TISSUE, AND SKIN Medial Chest Lead papule Lesion biopsy Type of biopsy: tangential Informed consent: discussed [...] Photo taken Amount of lidocaine used: 1cc Specimen A - Dermatopathology exam Differential Diagnosis: BCC vs other Check Margins: No Size of lesion: 0.7 x 0.6 cm Next Visit: 1 year documented in this encounter [facility] 07-07-2024 History of Present illness Narrative Images from the original note were not included. Reason for Appointment Established Patient: Annual Comprehensive Diabetic Foot Examination Second Complaint: To be measured for diabetic shoes and casted for diabetic orthotics History of Present Illness Established Patient: Annual Comprehensive Diabetic Foot Examination. AM glucose: 138. A1C on 06-07-2024 was 7.0. Patient is having neuropathy issues in B/L foot, LT > RT. Symptoms started about 2-3 months ago. Patient states that she has pain that comes and goes and is mostly along the first MPJ and lateral foot. Patient states that feet are colder at night. Patient denies any injury or trauma to the feet. Patient is taking Gabapentin 200 mg at bedtime. Second Complaint: To be measured for diabetic shoes and casted for diabetic orthotics. Review of Systems General: Chills denies. Fatigue denies. Fever denies. Night sweats denies. Endocrine: Hyperpigmentation denies. Diabetes admits. Weakness denies. Cardiovascular: Chest pain denies. Shortness of breath denies. Gastrointestinal: Constipation denies. Diarrhea denies. Nausea denies. Vomiting denies. Hematology: Anemia denies. Bleeding problems denies. Easy bruising denies. Musculoskeletal: Bone/joint symptoms denies. Leg cramps denies. Peripheral Vascular: Edema denies. Rest pain denies. Varicose veins denies. Raynaud's denies. Skin: Ulceration denies. Nail changes denies. Rash denies. Skin lesion(s) admits. Neurologic: Dizziness denies. Gait abnormality denies. Headache denies. Tingling/Numbness denies. Examination General Examination: GENERAL EXAMINATION: awake, aware of surroundings, in no acute distress. FOOT EXAM: Date of Last Foot Exam 07/07/2024 Sensory testing performed: sensations diminished Sensory and motor testing performed: strength normal Pedal pulse taking performed: 2+ Vascular: DORSALIS PEDIS PULSE: bilaterally, 2/4. POSTERIOR TIBIAL PULSE: 2/4 right and 1/4 left. TEMPERATURE GRADIENT: warm to cool. EDEMA:none. VARICOSITIES: present bilaterally. CAPILLARY FILLING TIME(sec): capillary fill intact bilateral digits immediate. Neurologic: VIBRATORY: diminished to the bilateral lower extremity from mid-tibia distally. SEMMES-ALDO 5.07 MONOFILAMENT: diminished to the bilateral foot. NEUROLOGIC: peripheral neuropathy to the bilateral lower extremity. A little bit of instability /balance issues sometimes but not all of the time. Dermatologic: SKIN FINDINGS: Skin is thin, shiny, atrophic and dry with absent pedal hair bilateral foot. Venous insufficiency to the bilateral lower extremity. HYPERKERATOSIS: pre-ulcerative Callus: bilateral foot first MPJ region. NAIL PATHOLOGY: toenails 1-5 intact bilaterally with superficial onychomycosis to toenails 2-4 left and 1 right. ULCER: Previous ulcers to the left dorsal second toe DIPJ and left hallux abductovalgus region - remain healed. Ankle / Foot: MUSCLE STRENGTH: 5/5 to major muscle groups, toes weaker. Orthopedic: FOOT MORPHOLOGY: pes plano valgus bilaterallly. JOINT RANGE OF MOTION: Normal . DEFORMITIES: Moderate left hallux valgus, Mild right hallux valgus, bilateral tailors bunion, hammertoes 2-5 bilaterally, left second toe wider than other toes. Fat pad atrophy bilateral forefoot ORTHOPEDIC: ankle joint equinus bilaterally. SHOE GEAR: Slip on casual shoes. Radiologic: ANKLE X-RAYS: 03-12-2021: Left ankle x-rays, weightbearing AP/MORTISE/LAT views, obtained today shows: lateral view shows mild pes planovalgus left foot, first metatarsal was elevated higher than second, posterior calcaneal spur small and moderate plantar calcaneal spur noted. Posterior aspect of talus show spur formation ankle joint looks normal from this view as well as subtalar joint overall mild arthritis potentially. Mortise view shows no significant pathology except for medial prominence of the medial malleolus left ankle or internally there is no sign of talar dome lesion, fracture, dislocation, periosteal reaction, gas, foreign body, infection, or tumor. AP x-ray also shows similar findings is a small calcific portion most likely soft tissue which is round and proximal about 2 cm from the distal fibular tip. This also appreciated in the oblique view. FOOT X-RAYS: 05-13-2020: Left foot x-rays, weightbearing AP/MO views, obtained today shows: AP x-ray shows moderate hallux abductovalgus deformity very prominent medial eminence, spur formation over the base of proximal phalanx left hallux lateral deviation of the hallux on the first metatarsal at approximately 10%. Talus bunion noted with prominent lateral eminence fifth metatarsal head, lesser toes are mildly contracted left fifth toes adductovarus deformity. Patient has slight irregularity to the base of the left foot fifth metatarsal consistent with most likely spur formation or calcific peroneal brevis insertion. Medial oblique view shows similar findings. There is no obvious sign of fracture, dislocation, periosteal reaction, gas, foreign body, infection, or tumor. Diabetic Shoes and Insoles: History of partial or complete amputation of the foot? No History of previous foot ulceration? No History of pre-ulcerative callus? Yes Peripheral neuropathy with evidence of callus formation? Yes Foot deformity? Yes Poor circulation? Yes Assessments 1. Type 2 diabetes mellitus with peripheral neuropathy - E11.42 2. Pre-ulcerative calluses - L84, B/L plantar foot first IM space 3. Hammertoe of left foot - M20.42, Left toes 2-5 4. Hammertoe of right foot - M20.41, Right toes 2-5 5. Risk for falls - Z91.81 6. Balance problem - R26.89 7. Hallux valgus of right foot - M20.11 8. Hallux valgus of left foot - M20.12 9. Acquired equinus deformity of left foot - M21.6X2 10. Acquired equinus deformity of right foot - M21.6X1 11. Tailor's bunion of right foot - M21.621 12. Tailor's bunion of left foot - M21.622 13. Acquired pes planovalgus of right foot - M21.41 14. Acquired pes planovalgus of left foot - M21.42 15. Venous (peripheral) insufficiency - I87.2 16. Asymptomatic varicose veins - I83.90 17. Onychomycosis - B35.1 18. Fat pad atrophy bilateral forefoot Treatment Pre-ulcerative calluses, fat pad atrophy, hallux abductovalgus bilaterally, diabetes mellitus with neuropathy. 1. Patient seen today for follow up examination. 2. Patient advised to always maintain proper diabetic control. 3. Patient was advised that her old diabetic foot orthotics are compressed at the area of pressure points/pre-ulcerative calluses and should be replaced. Patient voiced understanding and acceptance. 4. Patient was appropriately casted for 1 new pair of diabetic trilaminar custom foot orthotics to offload area of pre-ulcerative calluses. He was also admitted for pair of diabetic shoes (DR.Comfort Karol browning #[id number] XW) as well reappointment orthotics and shoes are available. Diabetes mellitus with neuropathy 1. Patient seen today for follow-up examination and Annual Comprehensive Diabetic Foot Examination was performed. 2. Patient advised to always maintain proper diabetic control. 3. Patient advised to wash and dry bilateral foot once daily and apply a good moisturizing cream to bilateral lower extremity, except for in between toes, post bathing to keep skin from becoming too dry. 4. Patient advised to perform daily foot inspections and observe for any signs of skin breakdown. documented in this encounter [facility] 06-07-2024 History of Present illness Narrative Lj Doll is a 69 y.o. female Bobbi Barker MD presents with chief complaint of Diabetes HPI: Interim history: 06/2024 Followup visit 06/07/2024 for A1c in the office 7. Blood sugar is 193. CGM in 0% low range, 88% good range, 12% in high range, average 151. She is on Lantus 20. Metformin 850 twice a day, Ozempic 1 mg daily. CGM 0-88-12 avg 151 Interim history: 08/2023 Followup visit 08/11/2023 for A1c in the office 6.3. Blood sugar is 137. CGM in 0% low range, 99% good range, 1% in high range, average 125. She is on Lantus 20. Metformin 850 twice a day ( wants to cut back to once daily), Ozempic 1 mg daily. Interim history: 02/2023. Followup visit 02/10/2023 for A1c in the office 6.3. Blood sugar is 204. CGM in 0% low range, 97% good range, 3% in high range, average 136. She is on Lantus 25. Metformin 850 twice a day, Ozempic 1 mg daily. lab on 10/2022 C-peptide 3.8, vit d 44, microalbuimn <1, TC 153, HDL 71, LDL 67. Interim history: 10/2022. Followup visit 10/21/2022 for A1c in the office 6.3. Blood sugar is 170. CGM in 0% low range, 98% good range, 2% in high range, average 122. She is on Lantus 30. Metformin 850 twice a day, Ozempic 1 mg daily. Interim history: 04/2022. Followup visit 04/22/2022 for A1c in the office 6.6. Blood sugar is 137. CGM in 0% low range, 99% good range, 1% in high range, average 122. She is on Lantus 30, barely used Humalog. Metformin 850 twice a day off pioglitazone 30. Ozempic 1 mg daily. Interim history: 12/2021. Followup visit 12/25/2021 for A1c in the office 5.9. Blood sugar is 155. CGM in 1% low range, 96% good range, 3% in high range, average 122. She is on Lantus 30, barely used Humalog. Metformin 500 twice a day and pioglitazone 30. She is interested to go back to Ozempic. She is unable to afford it at this time. IM 09/2021 follow up visit on 09/05/2021 for uncontrolled DM2, A1c in the office 8.3, bg 221, on lantus 18 units bid, H ISS only, metformin 850 mg bid, I used to follow her back on 2018 for high ALK-PH. Interim History 12/22: Followup visit on 12/21/2018. She is following with Dr. Benavides, just started Reclast last month with him for osteoporosis. She is on vitamin D 1000 units daily. Lab done in 08/2018. BUN 29, creatinine 1.23, and GFR 44, getting better. TSH 1.98, vitamin D 43, and PTH 15. Alkaline phosphatase not done. Interim History: 06/21 Followup visit on 06/08/18 for high alkaline phosphatase, repeated lab 150 (39-117), liver fraction 26% (18-85%), bone fraction 52% (14-68), intestine fraction 22% (0-18), magnesium 1.7 within normal limits, BUN 31, creatinine 3.5, GFR 35. She is aware she has kidney issues. Vitamin D 47. She is not taking any vitamin D supplement. Recently she has right hip replacement, status post fracture, and plan to see Dr. Benavides for follow-up her osteoporosis. Bone scan done, no evidence suspicious for monoclonal gammopathy or Paget disease. Interim history: 09/2021 Followup visit. Last time seen in our office in December/2018, so almost less than three years. We used to see her for her alkaline phosphatase, but she is following with Dr. Benavides for osteoporosis now. Currently in our office, A1c 8.3. She is on Lantus 18 U twice a day, Humalog sliding scale 4 above 150 and average 4 U twice a day and metformin 850 twice a day. HPI: 04/23 New patient sent from Dr. Bree Ambrose for high alkaline phosphatase 167 (38-128). Also she has high liver enzyme, AST 40, ALT 97 (5-52). Went to composition teacher in [facility] hospital and has fatty liver and he recommend to see me for evaluation of high alkaline phosphatase. She denies fracture in spine or hip but she has three stress fractures in her bilateral feet, two in the right foot and one in the left. Denies kidney stone. No family history. Has Paget s disease. She states two years ago she had a DEXA scan in Dr. Benavides s office and it was normal. No osteopenia or osteoporosis at that time. SUBJECTIVE: MEDICATIONS: Current Outpatient Medications Medication Instructions amitriptyline (ELAVIL) 25 mg, Nightly aspirin 81 mg, Once carvedilol (COREG) 3.125 mg, 2 times daily with meals cholecalciferol (VITAMIN D-3) 1,000 Units, Daily RT colchicine 0.6 mg, Daily Continuous Glucose Pocket Operator (FreeStyle Denny 3 [place]) device etanercept (Enbrel) 50 MG/ML injection 1 mL, Weekly ferrous sulfate 325 (65 Fe) MG tablet 1 tablet, Daily with breakfast fluticasone (Flonase) 50 MCG/ACT nasal spray 1 spray, Daily folic acid (FOLVITE) 1 mg, Daily RT furosemide (LASIX) 20 mg, Daily gabapentin (NEURONTIN) 200 mg, 2 times daily Glucosamine-Chondroitin (GLUCOSAMINE CHONDR COMPLEX PO) 1 capsule, Daily hydroxychloroquine (PLAQUENIL) 200 mg, Daily insulin lispro (HumaLOG) 100 UNIT/ML injection 3 times daily with meals Lantus SoloStar 100 UNIT/ML pen Every morning lisinopril 2.5 MG tablet Take 1 tablet every day by oral route for 90 days. metFORMIN (GLUCOPHAGE) 850 mg, Daily montelukast (SINGULAIR) 10 mg Multiple Vitamin (multivitamin) capsule 1 capsule, Daily Ozempic, 1 MG/DOSE, 4 MG/3ML solution pen-injector as directed Subcutaneous pantoprazole (PROTONIX) 40 mg, Daily before breakfast rosuvastatin (CRESTOR) 5 mg, Daily rosuvastatin (CRESTOR) 20 mg, Daily sertraline (ZOLOFT) 50 mg, Daily ALLERGIES: Allergies Allergen Reactions Adalimumab Other Reaction(s): Hives Diclofenac Other Reaction(s): does not help Diphenhydramine Other Reaction(s): brain fog, VERY FOGGY BRAIN Other Oxaprozin Other Reaction(s): INEFFECTIVE Oxycodone-Acetaminophen Nausea And Vomiting Statins Other Reaction(s): MUSCLE CRAMPS, Myalgia Past Medical History: Diagnosis Date Anemia ASCVD (arteriosclerotic cardiovascular disease) (CMS/HCC) Basal cell carcinoma Bone spur of right foot Bunion Chronic kidney disease, stage 3 (HCC) (CMS/HCC) Coronary artery disease (CAD) excluded CTS (carpal tunnel syndrome) Diabetes (CMS/HCC) Dietary counseling and surveillance DM (diabetes mellitus), type 2 (CMS/HCC) Dupuytren's contracture Elevated alkaline phosphatase level Fibromyalgia Fracture, foot Ganglion GERD (gastroesophageal reflux disease) Glaucoma suspect Hammer toe Hiatal hernia History of medical treatment hydroxycholornique use Hyperlipidemia (CMS/HCC) 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 (CMS/HCC) Neuroma of foot Obesity Osteoporosis (CMS/HCC) Other specified abnormal findings of blood chemistry Peripheral neuropathy Rheumatoid arthritis (CMS/HCC) Steatosis, liver Stress fracture Trigger finger trigger RT RF and thumb Type 2 diabetes mellitus with hyperglycemia (CMS/HCC) Upper GI bleed 10/2018 Vitamin D deficiency Past Surgical History: Procedure Laterality Date CARDIAC CATHETERIZATION 11/2003 30% LAD CARDIAC CATHETERIZATION 10/2016 2 stents placed CARPAL TUNNEL RELEASE COLONOSCOPY 2008, CYST REMOVAL ganglion B/L wrist EGD 2018 gastric polyps FOOT SURGERY Right excision of bone spur foot HIP SURGERY 2019 HYSTERECTOMY 1990 KNEE SURGERY 2016 LIVER BIOPSY 2001 SKIN BIOPSY SKIN CANCER EXCISION TOTAL KNEE ARTHROPLASTY Left 05/07/2014 TRIGGER FINGER RELEASE trigger RT RF and thumb TRIGGER FINGER RELEASE 12/21/2011 RT CTR & RMF trigger release TRIGGER FINGER RELEASE 01/15/2014 LT RF trigger release REVIEW OF SYMPTOMS: 14 POINT OF SYSTEM REVIEWED AND NEGATIVE OBJECTIVE: Constitutional: Afebrile @ home; no weakness or night sweats SKIN: No change in skin color; no itching, rash or lesions; no hair loss; HEENT: No HAs or injury; no dizziness; No difficulty with vision; no eye pain, discharge or lesions; no hearing loss or difficulty; no nasal discharge, NECK: No pain, limitation of motion, lumps or swollen glands RESP: No cough, wheezing or difficulty breathing. No CP with breathing; CARDIO: No CP , SOB or fatigue, No edema, palpitations or dyspnea with exertion GI: No N/V/D or abd. pain; good appetite with no recent change. No heart burn, liver or gallbladder disease; no rectal bleeding or pain : No urinary pain , frequency or odor. MUSCULOSKELETAL: No muscle pain or cramps; no extremity weakness.No joint pain, stiffness, swelling or limitation of movement NEUROLOGY: No H/O seizures, stroke or fainting. No weakness, tremors. Hematology: No bleeding problems or excessive bruising ENDOCRINE: No increase in hunger, thirst or urination; admits compliance to medical management plan Feet: numbness tingling no , ulcers or skin break no Lab Results Component Value Date HGBA1C 7.0 06/07/2024 Lab Results Component Value Date GLU 193 06/07/2024 Visit Vitals BP 112/64 Pulse 76 Resp 16 Ht 5' 3 Wt 195 lb SpO2 96% BMI 34.54 kg/m Smoking Status Former BSA 1.98 m ASSESSMENT AND PLAN: Assessment/Plan Diagnoses and all orders for this visit: Type 2 diabetes mellitus with hyperglycemia, with long-term current use of insulin ([facility]) - POCT glycosylated hemoglobin (Hb A1C) docked device - POCT glucose manually resulted We will continue with Lantus 20 units, metformin 850 once a day, Ozempic 1 mg once a week. Vitamin D deficiency Insulin long-term use ([facility]) Primary hypertension ([facility]) Hyperlipemia, mixed ([facility]) Encounter for dietary consultation Diet and exercise reviewed with the patient Class 1 obesity due to excess calories with serious comorbidity and body mass index (BMI) of 34.0 to 34.9 in adult Follow up in about 6 months (around 12/08/2024). documented in this encounter [facility] 02-29-2024 Note Patient Education Nutrition BMI for [...] for Disease Control and Prevention: cdc.gov ??? [place] [employer] Association: heart.org ??? National Heart, Lung, and Blood Allons: nhlbi.nih.gov This information is not intended to replace advice given to you by your health care provider. Make sure you discuss any questions you have with your health care provider. Document Revised: 12/10/2022 Document Reviewed: 12/03/2022 [employer] Patient Education ? 2023 [employer]. [facility] 12-16-2023 Note Patient Education Emergency Medicine Heart Attack A heart attack occurs when blood and oxygen supply to the heart is cut off. A heart attack can cause damage to the heart that cannot be fixed. A heart attack is also called a myocardial infarction, or TN. If you think you are having a [...] these instructions at home: Medicines ? Take mfjv-xrx-zeeowma and prescription medicines only as told by [...] beats. ? You (more content not included)... [facility] 11-08-2023 Note [facility] Note Chief Complaint: Patient here [...] Allergies Adalimumab, Diclofenac, Diphenhydramine, Oxaprozin, Oxycodone-acetaminophen, and Hgufamk-gms-uno reductase inhibitors Medications Current Outpatient Medications: amitriptyline [...] no acute distress. HEAD: atraumatic, normocephalic. EYES: ROISE, EOMI. NECK: trachea midline, no JVD present, [...] Carotid US Ech (more content not included)... [facility] 05-12-2023 History of Present illness Narrative [...] disease Father Brain cancer Sibling Cancer Brother [facility] Rheumatologic disease Sister Danna Keen Melanoma Neg [...] saved to the permanent record in the [place] office. ASSESSMENT AND PLAN: Assessment/Plan Follow up [...] these. Physical therapy script was sent to [place] for evaluation and treat three times a [...] took 35 minutes. documented in this encounter [facility] Healthcare Evaluation + Plan note Future Appointments Appointment Date:08/04/2022 10:40:00 AM Scheduled Provider:BREE AMBROSE MD Location:[facility] Appointment Type: Open Diagnostic Tests PendingUrine Culture 06/30/22 [facility] Evaluation + Plan note Future Appointments Appointment Date:12/14/2023 09:30:00 AM Scheduled Provider: Location:[facility] Appointment Type: Medicare Wellness Subsequent Appointment Date:02/29/2024 09:15:00 AM Scheduled Provider:Arley Keller MD Location:[facility] Appointment Type: Open [facility] Evaluation + Plan note Future Appointments Appointment Date:02/29/2024 09:15:00 AM Scheduled Provider:Arley Keller MD Location:[facility] Appointment Type: Open Appointment Date:12/18/2024 01:00:00 PM Scheduled Provider: Location:[facility] Appointment Type:FM Medicare Wellness Subsequent Diagnostic Tests PendingHCV Antibody RFX to Quant PCR 12/21/23 Future Scheduled TestsMA Mamm Screen w/CAD if perf and 3D Jt 12/16/23 [facility] Evaluation + Plan note Future Appointments Appointment Date:05/19/2024 11:15:00 AM Scheduled Provider:Randolph Shah [facility] App[facility] Type:Cardiology New Patient (FT) Appointment Date:08/29/2024 09:15:00 AM Scheduled Provider:Arley Keller MD Location:[facility] Appointment Type: Open Appointment Date:12/18/2024 01:00:00 PM Scheduled Provider: Location:[facility] Appointment Type: Medicare Wellness Subsequent Future Scheduled TestsMA Mamm Screen w/CAD if perf and 3D Jt 12/16/23 [facility] Evaluation + Plan note Future Appointments Appointment Date:06/02/2024 11:15:00 AM Scheduled Provider:Randolph Shah [facility] Appointment Type:Cardiology New Patient (FT) Appointment Date:08/29/2024 09:15:00 AM Scheduled Provider:Arley Keller MD Location:[facility] Appointment Type: Open Appointment Date:12/18/2024 01:00:00 PM Scheduled Provider: Location:[facility] Appointment Type: Medicare Wellness Subsequent Future Scheduled TestsMA Mamm Screen w/CAD if perf and 3D Jt 12/16/23 [facility] Evaluation + Plan note Future Appointments Appointment Date:08/29/2024 09:15:00 AM Scheduled Provider:Arley Keller MD Location:[facility] Appointment Type: Open Appointment Date:12/18/2024 01:00:00 PM Scheduled Provider: Location:[facility] Appointment Type: Medicare Wellness Subsequent Future Scheduled TestsLipid Panel 06/02/24MA Mamm Screen w/CAD if perf and 3D Jt 12/16/23 [facility] Evaluation + Plan note Future Appointments Appointment Date:12/18/2024 01:00:00 PM Scheduled Provider: Location:[facility] Appointment Type: Medicare Wellness Subsequent Future Scheduled TestsLipid Panel 25US PVR Lower EXT Complete Bilat 08/31/24MA Mamm Screen w/CAD if perf and 3D Jt 12/16/23 [facility] Evaluation + Plan note Future Appointments Appointment Date:12/18/2024 01:00:00 PM Scheduled Provider: Location:[facility] Appointment Type:FM Medicare Wellness Subsequent Future Scheduled TestsLipid Panel 25MA Mamm Screen w/CAD if perf and 3D Jt 12/16/23 [facility] Evaluation note No assessment inform ation [facility] Work Phone: Evaluation note Diagnosis Traumatic closed displaced fracture of right shoulder with anterior dislocation with routine healing, subsequent encounter- Primary [facility] encounter [facility] Diagnosis Type 2 diabetes mellitus with hyperglycemia, with long-term current use of insulin (CMS/[facility])- Primary Vitamin D deficiency Insulin long-term use (CMS/[facility]) Encounter for long-term (current) use of insulin Primary hypertension (CMS/HCC) Unspecified essential hypertension Hyperlipemia, mixed (CMS/[facility]) Mixed hyperlipidemia Encounter for dietary consultation Class 1 obesity due to excess calories with serious comorbidity and body mass index (BMI) of 34.0 to 34.9 in adult documented [facility] Diagnosis Type II diabetes mellitus with neurological manifestations (CMS/HCC) Type II or unspecified type diabetes mellitus with neurological manifestations, not stated as uncontrolled Pre-ulcerative calluses Hallux valgus of right foot Hallux valgus of left foot Hammertoe of right foot Hammertoe of left foot Tailor's bunion of right foot Tailor's bunion of left foot Left foot pain Pain in soft tissues of limb Pain of right foot [facility] Diagnosis Seborrheic keratosis- Primary Capillary angioma Nevus, non-neoplastic Lentigines History of basal cell carcinoma Personal history of other malignant neoplasm of skin Actinic keratosis Neoplasm of unspecified behavior of bone, soft tissue, and skin documented in [facility] Diagnosis Basal cell carcinoma (BCC) of chest- Primary documented [facility] this encounter [facility]* Diagnosis Type II diabetes mellitus with neurological manifestations (HCC) Type II or unspecified type diabetes mellitus with neurological manifestations, not stated as uncontrolled Pre-ulcerative calluses Hallux valgus of right foot Hallux valgus of left foot Hammertoe of right foot Hammertoe of left foot 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 Plantar fat pad atrophy of left foot documented [facility]* Diagnosis Encounter for removal of sutures- Primary documented in this encounter [facility] [...] * Cardiovascular: there are no cardiovascular symptoms. RE-Dewtjlogzcrzeeby-Vxylijkn [facility] Work Phone: Hospital course Narrative No data available for this section [facility] No data available for this section [facility] Additional Instructions Follow-up with orthopedic doctor provided [facility] develop [facility] Work [facility]: Progress note No data available for this section [facility] Summary Purpose Family History No Family [...] No data available for this section No data available for this section No Family History Records Found No data available for this section No data available for this section No [...] R.S. Note Recipients: Bree Ambrose MD - [id number] [] Discharge: Summary: Admission Date: .20-Oct-2018 10:48:00 Discharge Date: 22-Oct-2018 Attending Physician at Discharge: Jeffrey Crowell Admission Reason: Coughing up blood, syncope(1) Final Discharge Diagnoses: Gastrointestinal hemorrhage with hematemesis, hiatal hernia Procedures: EGD: no biopsies; no evidence of bleeding; hiatal hernia noted Condition at Discharge: Satisfactory Disposition at Discharge: .Home Vital Signs: T PRBPSpO2 [id number]/6396% Date/Time10/22 7: 7: 7: 7:227/20 7:22 Range(35.9C - 37C ) (69 - [...] dislocation with routine healing, subsequent encounter Procedures ME OFFICE/OUTPATIENT [facility] 60 MINUTES Michael Villa, DO [address] [place] [address] [facility] Physical Therapy [address] [facility], [address] Referral ID Status Reason Start Date Expiration Date Visits Requested Visits Authorized [id number] Authorized Specialty Services Required 05/12/2023 11/08/2023 1 1 Additional Source Comments INFORMATION SOURCE (unrecogn ized section and content) DATE CREATED AUTHOR 09/28/2017 Rizwana godfrey DATE CREATED AUTHOR AUTHOR'S ORGANIZ ATION 06/07/2018 [facility] DATE CREATED AUTHOR AUTHOR'S ORGANIZ ATION 11/01/2018 [facility] DATE CREATED AUTHOR AUTHOR'S ORGANIZ ATION 12/14/2020 [facility] DATE CREATED AUTHOR AUTHOR'S ORGANIZ ATION 01/04/2022 [facility] DATE CREATED AUTHOR AUTHOR'S ORGANIZ ATION 01/08/2022 [employer] DATE CREATED AUTHOR AUTHOR'S ORGANIZ ATION 06/05/[address] [facility] pital DATE CREATED AUTHOR AUTHOR'S ORGANIZ ATION 09/01/[address] [facility] ical Center DATE CREATED AUTHOR AUTHOR'S ORGANIZ ATION 12/25/[address] [facility] ical Center DATE CREATED AUTHOR AUTHOR'S ORGANIZ ATION 04/08/2024 Leyva [address] [facility] ical Center DATE CREATED AUTHOR AUTHOR'S ORGANIZ ATION 04/14/2024 Leyva [address] [facility] ical Center DATE CREATED AUTHOR AUTHOR'S ORGANIZ ATION 06/05/2024 [facility] DATE CREATED AUTHOR AUTHOR'S ORGANIZ ATION 09/03/20[address] [facility] ical Center DATE CREATED AUTHOR AUTHOR'S ORGANIZ ATION 09/22/2024 [facility] ical Center DATE CREATED AUTHOR AUTHOR'S ORGANIZ ATION 10/19/2024 [facility] DATE CREATED AUTHOR AUTHOR'S ORGANIZ ATION 11/11/2024 [address]yva [address] [facility] ical Center DATE CREATED AUTHOR AUTHOR'S ORGANIZ ATION 11/21/2024 [facility] EPIC Patient Care team informatio n (unrecognized section [...] Arley Keller MD Primary Care Provider Active Supplier Relationship Director Relationship Specialty Start Date End Date Arley Keller MD [address] [place] [address] PCP - General Family Medicine 03/02/23 Supplier Relationship Director Relationship Specialty Start Date End Date Arley Keller MD [address] [place] [address] PCP - General Family Medicine 03/02/23 Team [...] May 09, 2024 End: May 09, 2024 Supplier Relationship Director Relationship Specialty Start Date End Date Arley Keller MD [address] [place], [place] [phone] PCP - General Family Medicine 03/02/23 Supplier Relationship Director Relationship Specialty Start Date End Date Arley Keller MD [address] [place], [place] [phone] PCP - General Family Medicine 03/02/23 Supplier Relationship Director Relationship Specialty Start Date End Date Arley Keller MD [address] [place] [id number] PCP - General Family Medicine 03/02/23 Supplier Relationship Director Relationship Specialty Start Date End Date Arley Keller MD [address] [place] [id number] PCP - General [facility] 03/02/23 Supplier Relationship Director Relationship Specialty Start Date End Date Arley Keller MD [address] [place] [address] PCP - [facility] 03/02/23 Supplier Relationship Director Relationship Specialty Start Date End Date Arley Keller MD [address] [place], [place] [phone] PCP - [facility] 03/02/23 Supplier Relationship Director Relationship Specialty Start Date End Date Arley Keller MD [address] [place] [address] PCP - [facility] 03/02/23 Supplier Relationship Director Relationship Specialty Start Date End Date Arley Keller MD [address] [place] [address] PCP - [facility] 03/02/23 Supplier Relationship Director Relationship Specialty Start Date End Date Arley Keller MD [address] [place], [place] [phone] PCP - General [facility] 03/02/23 Goals (unrecognized section and content) Goals may be documented in a n alternate section Reason for Visit (unrecogniz ed section and content) Reason Comments Pain Reason Comments Diabetes Reason Comments Skin Check Reason Comments Excision Reason Comments Suture / Staple Removal FOR RECORDS PERTAINING TO PATIENTS WHO ARE [...] BE BASED ON THE PRIMARY CLINICAL RECORDS. [facility] [employer] [facility]. provides no warranty or guarantee of the accuracy or completeness of information in this document.
[2024-11-21 11:02] LABS: Magnesium 1.9 mg/dL (1.8-2.4)
[2024-11-21 13:52] LABS: Protein Creatinine Ratio Urine 0.38; Total Protein Urine Random 30.1 mg/dL (<=11.9)
== END 2024-11-21 09:12 | disposition home or self-care (01) ==
LOC: LAB 09:11
PROVIDERS: PCP Family Medicine
DX: I13.10 Hypertensive heart and chronic kidney disease without heart failure, with stage 1 through stage 4 chronic kidney disease, or unspecified chronic kidney disease (principal); E11.21 Type 2 diabetes mellitus with diabetic nephropathy; Z79.1 Long term (current) use of non-steroidal anti-inflammatories (NSAID)
CPT/HCPCS: 36415; 82570; 83735; 84100; 84156

== ENCOUNTER 2025-01-10 09:43 | Outpatient (OUT) | payer MEDICARE, SELFPAY ==
--- OUTSIDE RECORDS SUMMARY | 2025-01-10 10:05 | XMS_ITS | CCD ---
Author Organization [facility] Care Team Providers Care Group Managing Director Name Role Phone KRISTA, SHEN Unavailable Unavailable KRISTA, SHEN Unavailable Unavailable FOSTER, SHEN Unavailable Unavailable [...] Unavailable Halie, Bree Dominique Primary Care Unavailable Miguelolajoni, Dr. Kenroy Real Attending UnaBree Evans Referring Unavailable Ambrose, Bree Dominique Primary Care [...] Attending Unavailable BREE AMBROSE Primary Care Physician [phone] MD Bree Ambrose Primary Care Provider [phone] MD Fransisco Benavides Attending Provider [phone] DO Lalo Alvarado Emergency Provider MD Arley Keller Primary Care Provider Arley Keller MD Primary Care Provider [phone] Arley Keller. Primary Care Physician [phone] Micaela Palomino Attending Unavailable Akkina, Agustín Admitting Unavailable Akkina, Agustín Attending Unavailable Akkina, Agustín Referring Unavailable Arley Keller EKirill Attending Unavailable Krishna Arley EKirill Admitting Unavailable Krishna Arley E. Attending Unavailable RICKY VALDIVIA Attending Unavailable Arley Keller Attending Unavailable Arley Keller MD Primary Care Provider [phone] Fransisco Benavides MD Attending Provider [phone] Fransisco Benavides Admitting Unavailable Fransisco Benavides Attending Unavailable Arley Keller E Primary Care Unavailable Fransisco Benavides Attending Unavailable Arley Keller Primary Care Unavailable Fransisco Benavides Admitting Unavailable Arley Keller MD Primary Care Provider [phone] RODOLFO ROBERTS Attending Unavailable Krishna Arley EKirill Admitting Unavailable Krishna Arley EKirill Attending Unavailable Arley Keller EKirill Referring Unavailable Kirn, Randolph D Attending Unavailable Krishna Arley EKirill Referring Unavailable Kirnus, Randolph D Attending Unavailable Krishna Arley E. Attending Unavailable Kirnus, Randolph D Admitting Unavailable Kirnus, Randolph D Attending Unavailable Kirnus, Randolph D Referring Unavailable DARINEL, AHMAD F Attending Unavailable DARINEL, AHMAD F Referring Unavailable SHELTON TRIANA R Attending Unavailable JOSELO THRASHER A Attending Unavailable SHELTON TRIANA R Attending Unavailable PETITTErin, HARRIS A Attending Unavailable PETITTErin, HARRIS A Attending Unavailable DARINEL, AHMAD F Attending Unavailable Arley Keller E. Attending Unavailable Krishna, Arley E. Admitting Unavailable Ross, Arley E. Attending Unavailable Krishna, Arley E. Attending Unavailable Krishna, Arley E. Attending Unavailable Krishna, Arley E. Admitting Unavailable NONE, XXXX Referring Unavailable Ronal Singh Attending Unavailable Micaela Palomino Attending Unavailable Micaela Palomino Attending Unavailable Krishna, Arley E. Attending Unavailable Ross, Arley E. Admitting Unavailable Ross, Arley E. Referring Unavailable Allergies Allergy Classification Reported Allergen(s) Allergy Type Date of Onset Reaction(s) Facility (15 sources) adalimumab; Translations: [Humira] Drug Allergy LiviaNancy [facility] (7 sources) Hmg-Coa Reductase Inhibitors (Statins); Translations: [Statins] Allergy to drug (finding) [facility] Repository (20 sources) oxaprozin; Translations: [Daypro] Drug Allergy 09-22-19 23 INEFFECTIVE [facility] (3 sources) Antihistamine TABS; Translations: [Antihistamine TABS] Allergy to drug (finding) [facility] [address] [facility] Work Phone: (2 sources) black walnut pollen extract; Translations: [[id number] REDUCTASE INHIBITORS] Drug Allergy 12-14-19 14 [facility] Repository (2 sources) Diclofenac; Translations: [DICLOFENAC] Drug Allergy 04-09-19 15 [facility] Repository (1 source) diphenhydrAMINE Drug Allergy 01-05-20 13 [facility] Repository (1 source) oxaprozin Drug Allergy 01-05-20 13 [facility] Repository (13 sources) diphenhydrAMINE; Translations: [diphenhydramine] Drug Allergy 09-22-19 VERY FOGGY BRAIN [facility] (20 sources) HMG-CoA reductase inhibitor; Translations: [statins] Drug allergy 03-03-20 17 MUSCLE CRAMPS [facility] (20 sources) adalimumab; Translations: [adalimumab] Drug Allergy 09-22-19 [facility] (4 sources) Antihistamines - Alkylamine; Translations: [Antihistamines - Alkylamine] Allergy to substance 04-08-19 [facility] (20 sources) Acetaminophen / oxyCODONE; Translations: [OXYCODONE-ACETAMIN OPHEN] Drug Allergy 03-03-20 17 Nausea And Vomiting [facility] (20 sources) Diclofenac Drug Allergy 09-22-19 23 [facility] (20 sources) diphenhydrAMINE Drug Allergy 09-22-19 23 [facility] Healthcare (20 sources) Other Allergy to substance 09-22-19 [facility] (1 source) oxaprozin; Translations: [OXAPROZIN] Drug Allergy 09-22-19 [facility] Repository Medications Current Medications Medication Drug Class(es) Dates Sig (Normalized) Sig (Original) 3 ML semaglutide 1.34 MG/ML Pen Injector [Ozempic] (5 sources) Start: 08-31-2024 inject 1 mg by subcutaneous injection every week Ozempic (1 mg dose) 4 mg/3 mL subcutaneous solution See Instructions, INJECT SUBCUTANEOUSLY 1 MG EVERY WEEK, # 9 mL, Refills(s) 3, Pharmacy: [facility]/pharmacy #[id number], 160, cm, 08/31/24 11:11:00 [...] qWeek, # 9 mL, Refills(s) 0, Pharmacy: [facility]/pharmacy #[id number], 160, cm, 02/29/24 9:24:00 EST, Height/Length Dosing, 92.1, kg, 02/29/24 9:24:00 EST, Weight Dosing Start Date: 04/28/24 Status: Ordered acetaminophen 325 mg / HYDROcodone bitartrate 5 mg oral tablet (1 source) Opioid Agonist Start: 01-20-2021 [place] 325 mg-5 mg oral tablet 1 tab(s), Oral, q6hr for pain, 20 tab(s), Refill(s) 0, [facility]/pharmacy #[id number], 162, cm, 01/14/21 5:03:00 [...] Start: 01-13-2021 take 1 capsule by mo [facility] once daily Celebrate Multivitamin oral capsule 1 [...] Blood Gluc Sensor (FreeStyle Denny 2 Sensor) [facility] (2 sources) Start: 02-03-2023 Continuous Blood Gluc Sensor (FreeStyle Denny 2 Sensor) [facility] Continuous Glucose Landscaping Manager (FreeStyle Denny 3 [place]) device (20 sources) Start: 08-11-2023 Continuous Glucose Landscaping Manager (FreeStyle Denny 3 [place]) device 08/11/2023 Active Continuous Glucose Sensor (FreeStyle Denny 3 Plus Sensor) [facility] (3 sources) Start: 11-21-2024 Continuous Glucose Sensor (FreeStyle Denny 3 Plus Sensor) [facility] Indications: Type 2 diabetes mellitus with hyperglycemia, with long-term current use of insulin (HCC) 1 kit Every 15 Days 6 each 3 11/21/2024 Active Continuous Glucose Sensor (FreeStyle Denny 3 Sensor) [facility] (14 sources) Start: 06-27-2024 Continuous Glucose Sensor (FreeStyle Denny 3 Sensor) [facility] 06/27/2024 Active CPAP supplies - Mask, tubing, [...] in, Eye-Both, QID, 3.5 gram, Refill(s) 1, [facility]/pharmacy #[id number], 162, cm, 01/14/21 5:03:00 EDT, Height/Length Dosing, 100, kg, 01/14/21 5:03:00 EDT, Weight Dosing Start Date: 01/20/21 Status: Ordered 1 ml etanercept 50 mg/ml prefilled syringe (20 sources) Tumor Necrosis Factor Keenan Start: 05-09-2024 Enbrel Prefilled Syringe 50 mg/mL subcutaneous solution See Instructions, INJECT 1 SYRINGE SUBCUTANEOUSLY WEEKLY, # 4 mL, Refills(s) 0, Pharmacy: [facility]/pharmacy #[id number], 160, cm, 08/31/24 11:11:00 EDT, Height/Length Dosing, 89.4, kg, 08/31/24 11:11:00 EDT, Weight Dosing Start Date: 08/31/24 Status: Ordered Quantity: 4.0 Unit: mL Repeat number: 1 Start: 01-13-2021 inject 50 mg by subc utaneous injection every week Enbrel 50 mg, SubCutaneous, qWeek, Other (see comment) Start Date: 01/13/21 Status: Ordered ferrous sulfate 325 mg oral tablet (20 sources) take 1 tablet by mouth at mealtime ferrous sulfate 325 (65 Fe) MG tablet Take 1 tablet by mouth in the morning. Take with meals. Active fluticasone propionate 0.05 mg/actuat metered dose nasal spray (20 sources) Corticosteroid take 1 spray(s) nasal route [...] 12 EA, 4, to check BS e11.22, [facility]/pharmacy #[id number], Supply, 160, cm, 11/26/24 9:24:00 EST, Height/Length Dosing, 92.1, kg, 02/29/24 9:24:00 EST, Weight Dosing Start Date: 04/18/24 Status: Ordered fresstyle denny 3+ sensors (2 sources) Start : 08-31 fresstyle denny 3+ sensors fresstyle denny 3+ sensors, See Instructions, 12 EA, 4, to check BS e11.22, [facility]/pharmacy #[id number], Supply, 160, cm, 08/31/24 11:11:00 EDT, [...] DAILY, # 160 tab(s), Refills(s) 3, Pharmacy: [facility]/pharmacy #[id number], 160, cm, 08/31/24 11:11:00 [...] Daily, # 30 mL, Refills(s) 4, Pharmacy: [facility], 160, cm, 02/29/24 9:24:00 EST, [...] ml insulin lispro 100 unt/ml pen injector (12 sources) Insulin Analog Start: 11-30-2024 End: 05-29-2025 insulin lispro (HumaLOG KWIKPEN) 100 UNIT/ML injection Indications: Type 2 diabetes mellitus with hyperglycemia, with long-term current use of insulin (HCC) Inject 3 Units under the skin in the morning and 3 Units at noon and 3 Units in the evening. Inject with meals. 8.1 mL 1 11/30/2024 05/29/2025 Active Start: 05-09-2024 Insulin Lispro KwikPen 100 units/mL [...] lispro (HumaLOG) 100 UNIT/ML injection (20 sources) End: 11-30-2024 inject 1 dose by subcutaneous injection at mealtime insulin lispro (HumaLOG) 100 UNIT/ML injection Inject under the skin in the morning and at noon and in the evening. Inject with meals. 11/30/2024 Discontinued (Dose adjustment) insulin lispro ( HumaLOG) 100 UNIT/ML injection [...] Daily, # 90 tab(s), Refills(s) 3, Pharmacy: [facility], [facility] 160, cm, 08/31/23 9:10:00 EDT, Height/Length Dosing, 88.4, kg, 08/31/23 9:10:00 EDT, Weight Dosing Start Date: 10/18/23 Status: Ordered Start: 04-27-2023 lisinopril 5 M G tablet Start: 01-25-2023 take 2.5 mg by mouth once daily lisinopril 5 mg Tab 2.5 mg = 0.5 tab(s), Oral, Daily, # 90 tab(s), Refills(s) 3, Pharmacy: [facility], 160, cm, 12/08/22 10:18:00 EDT, Height/Length [...] day(s), # 14 cap(s), Refills(s) 0, Pharmacy: [facility]/pharmacy #[id number], 162, cm, 03/28/23 15:22:00 EDT, Height/Length Dosing, 93, kg, 06/30/22 [...] Daily, # 90 tab(s), Refills(s) 4, Pharmacy: [facility], 160, cm, 02/29/24 [...] DAILY, # 90 tab(s), Refills(s) 3, Pharmacy: [facility]/pharmacy #[id number], 160, cm, 08/31/24 11:11:00 [...] & AFTER RECLAST INFUSION. STOP & CALL DR IF DIARRHEA 04/27/2024 11/03/2024 Discontinued 60 actuat [...] mellitus] 01-13-2021 Chronic Disorders of lipid metabolism (17 sources) Hyperlipidemia; Translations: [Dyslipidemia] Onset: 9 06-30-2022 Chronic E Codes: Fall (7 sources) Fall 04-13-2023 Esophageal disorders (20 sources) Gastroesophageal reflux disease; Translations: [Gastro-esophageal reflux disease without esophagitis] Onset: 07-09-2023 Chronic Essential hypertension (12 sources) Hypertensive disorder; Translations: [Essential hypertension] 01-13-2021 [...] tissue, and skin] 09-29-2024 Episodic Nutritional deficiencies (4 sources) Vitamin D deficiency; Translations: [Vitamin D deficiency, unspecified] 06-07-2024 Chronic Occlusion or stenosis of precerebral arteries (8 sources) Left carotid artery occlusion 06-30-2022 Chronic Osteoarthritis (3 sources) Osteoarthritis; Translations: [Osteoarthrosis, unspecified whether generalized or localized, site unspecified] Chronic Osteoporosis (1 source) Age-related osteoporosis without current pathological fracture; Translations: [Age-related osteoporosis without current pathological fracture] Onset: Chronic Other aftercare (4 sources) Long-term current use of insulin; Translations: [retirement (current) use of insulin] 06-07-2024 Episodic Other [...] Chronic Other nutritional; endocrine; and metabolic disorders (4 sources) Obesity caused by energy imbalance; Translations: [...] conditions (not mental disorders or infectious disease) (7 sources) Patient encounter status; Translations: [Special screening [...] Episodic Other diseases of veins and lymphatics (20 sources) Peripheral venous insufficiency; Translations: [Venous insufficiency (chronic) (peripheral)] Onset: 06-17-2023 06-17-2023 Episodic Other liver diseases (7 sources) Elevated liver enzymes level Onset: 11-02-2018 07-09-2023 Episodic Other lower respiratory disease (5 sources) Dyspnea Onset: 03-30-2019 07-09-2023 Episodic Other skin disorders (20 sources) Callosity; Translations: [Corns and callosities] Onset: 06-17-2023 06-17-2023 Episodic Results Test Name Value Interpretation Reference Range Facil ity Ambulatory Visit Summaryon 0 12-28-2024 Ambulatory Visit Summary Ambulatory Visit Summary LJ DOLL :1955 Visit Date:12/28/2024 Ambulatory Visit Instructions Your Diagnosis JESSICA on CPAP Your Care Team Attending Physician - Micaela Beltrán Primary Care Physician - Micaela Beltrán This Is Your Medications List Misc Prescription (CPAP supplies - Mask, tubing, connectors) Misc Prescription (fresstyle denny 3+ sensors) amitriptyline (amitriptyline 25 mg Tab) ascorbic acid (Vitamin C 25 mg oral tablet, chewable) aspirin calcium-vitamin D carvedilol (carvedilol 3.125 mg Tab) etanercept (Enbrel Prefilled Syringe 50 mg/mL subcutaneous solution) furosemide (furosemide 20 mg Tab) gabapentin (gabapentin 100 mg Cap) hydroxychloroquine (hydroxychloroquine 200 mg Tab) insulin glargine (Lantus Solostar Pen 100 units/mL subcutaneous solution) insulin lispro (Insulin Lispro KwikPen 100 units/mL injectable solution) lisinopril (lisinopril 5 mg Tab) metformin (metformin 850 mg Tab) montelukast (montelukast 10 mg Tab) multivitamin with minerals (Celebrate Multivitamin oral capsule) pantoprazole (Pantoprazole [address] Tab) rosuvastatin (rosuvastatin 20 mg Tab) semaglutide (Ozempic (1 mg dose) 4 mg/3 mL subcutaneous solution) sertraline (sertraline 50 mg Tab) zoledronic acid (Reclast) Procedures Performed Blepharoplasty of upper eyelid (01/20/2021), History of placement of stent for coronary artery disease (2016), Appendectomy, Arthroplasty of the hip, Arthroplasty of the knee, Carpal tunnel release, Excision of ganglion cyst, Release of trigger finger, Total hysterectomy. Discharge Vitals Temperature (Temporal Artery) 36.3 ???C Heart Rate (Peripheral) 72 Respiratory Rate 18 Blood Pressure 136/70 Height 160.0 cm Height 63 in Weight 89.9 kg Weight 198.195 lb BMI 35.12 What to do next Scheduled Follow-Up Appointments Wednesday2025 1:00 PM EDT With: Francisco MCINTYRE, Ronal Epps Where: [facility] [place] 2025 11:00 AM EDT With: Where: [facility] [place] [id number] Medications What How Much When Why Instructions Unchanged amitriptyline (amitriptyline 25 mg Tab) See instructions TAKE 1 TABLET BY MOUTH AT BEDTIME Unchanged ascorbic acid (Vitamin C 25 mg oral tablet, chewable) Unchanged aspirin 81 Milligram Every day Unchanged calcium-vitamin D 1 TAB By Mouth Every day Unchanged carvedilol (carvedilol 3.125 mg Tab) 1 Tablets By Mouth 2 times a day Unchanged etanercept (Enbrel Prefilled Syringe 50 mg/ mL subcutaneous solution) See instructions INJECT 1 SYRINGE SUBCUTANEOUSLY WEEKLY Unchanged furosemide (furosemide 20 mg Tab) 1 Tablets By Mouth Every day Unchanged gabapentin (gabapentin 100 mg Cap) See instructions TAKE 2 CAPSULES BY MOUTH AT BEDTIME Unchanged hydroxychloroquine (hydroxychloroquine 200 mg Tab) See instructions TAKE 1 TABLET BY MOUTH TWICE DAILY Unchanged insulin glargine (Lantus Solostar Pen 100 units/ mL subcutaneous solution) 20 Units Subcutaneous Every day Unchanged insulin lispro (Insulin Lispro KwikPen 100 units/ mL injectable solution) See instructions SubCutaneous BIDAC Unchanged lisinopril (lisinopril 5 mg Tab) 0.5 Tablets By Mouth Every day Unchanged metformin (metformin 850 mg Tab) 1 Tablets By Mouth Every day Unchanged Misc Prescription (CPAP supplies - Mask, tubing, connectors) See instructions JESSICA on CPAP CPAP supplies - Mask, tubing, connectors Unchanged Misc Prescription (fresstyle denny 3+ sensors) See instructions to check BS e11.22 Unchanged montelukast (montelukast 10 mg Tab) See instructions TAKE ONE TABLET BY MOUTH EVERY EVENING Unchanged multivitamin with minerals (Celebrate Multivitamin oral capsule) 1 Capsules By Mouth Every day Unchanged pantoprazole (Pantoprazole [address] Tab) 1 Tablets By Mouth Every day Unchanged rosuvastatin (rosuvastatin 20 mg Tab) See instructions TAKE 1 TABLET BY MOUTH DAILY Unchanged semaglutide (Ozempic (1 mg dose) 4 mg/ 3 mL subcutaneous solution) See instructions INJECT SUBCUTANEOUSLY 1 MG EVERY WEEK Unchanged sertraline (sertraline 50 mg Tab) 1 Tablets By Mouth Every day Unchanged zoledronic acid (Reclast) See instructions gets IV once a year Allergies Antihistamine (VERY FOGGY BRAIN) Daypro (INEFFECTIVE) Humira (Hives) statins (MUSCLE CRAMPS) Problems Ongoing - Any problem that you are currently receiving treatment for. Anemia of chronic disease BMI 35.0-35.9,adult CAD in [place] artery Carotid occlusion, left Diabetic neuropathy Fall Gastroesophageal reflux disease Hyperlipidemia Immunodeficiency due to drugs Liver enzymes level above reference range Long-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 Major depressive disorder in remission JESSICA on CPAP RA (rheumatoid arthritis) Raynaud's phenomenon Stage 2 chronic kidney disease Steatosis of liver Type 2 diabetes mellitus with chronic (more content not included)... Normal [facility] Medicine Office/Clini c Noteon 12-28-2024 Family Medicine Office/Clinic Note Family Medicine Office/Clinic Note HPI Staff Pt is here to discuss getting a new Cpap machine Her machine is saying end off life she gets this from [facility] in [place] History of Present Illness pt presents today to discuss new CPAP machine Review of Systems PHQ Score Initial Depression Screen Score: 0 SCORE Physical Exam Vitals & Measurements T: 36.3 ???C(Temporal Artery) HR: 72(Peripheral) RR: 18 BP: 136/70 SpO2: 98% HT: 160.0 cm HT: 63 in WT: 198.195 lb WT: 89.9 kg BMI: 35.12 General: alert, no acute distress ENMT: oral mucosa moist, no pharyngeal erythema or exudate Cardiovascular: regular rate and rhythm, normal peripheral perfusion Respiratory: Lungs CTA, respirations non labored Extremities: no deformity, no trauma Neurological: oriented x 4, LOC appropriate for age, CN II-XII intact, motor strength equal & normal bilaterally, speech normal Assessment/Plan 1. JESSICA on CPAP (G47.33: Obstructive sleep apnea (adult) (pediatric)) I feel pt would benefit from updated CPAP machine. Her current machine has a warning that says end of life. will send order to [facility] for new machine with supplies. all questions answered. RTC 1 year Ordered: Misc Prescription, CPAP Machine with supplies, See Instructions, 1 EA, 0, currnet machine has end of life warning on it, Supply 2. BMI 35.0-35.9,adult (Z68.35: Body mass index [BMI] 35.0-35.9, adult) BMI education given Follow-up With When Contact Information Candelario AUGUSTINE, Micaela Cartwright, ETHAN, MED In [address] [place] [phone] Additional Instructions: Problem List/Past Medical History Ongoing Anemia of chronic disease BMI 35.0-35.9,adult CAD in [place] artery Carotid occlusion, left Diabetic neuropathy Fall Gastroesophageal reflux disease Hyperlipidemia Immunodeficiency due to drugs Liver enzymes level above reference range Long-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 Major depressive disorder in remission JESSICA on CPAP RA (rheumatoid arthritis) Raynaud's phenomenon Stage 2 chronic kidney disease Steatosis of liver Type 2 diabetes mellitus with chronic kidney disease Historical Morbid obesity Rheumatic joint disease Procedure/Surgical History Blepharoplasty of upper eyelid (01/20/2021), History of placement of stent for coronary artery disease (2017), Appendectomy, Arthroplasty of the hip, Arthroplasty of the knee, Carpal tunnel release, Excision of ganglion cyst, Release of trigger finger, Total hysterectomy. Medications amitriptyline 25 mg Tab, See Instructions aspirin, 81 mg, Daily calcium-vitamin D, 1 TAB, Oral, Daily carvedilol 3.125 mg Tab, 3.125 mg= 1 tab(s), Oral, BID, 4 refills Celebrate Multivitamin oral capsule, 1 cap(s), Oral, Daily CPAP Machine with supplies, See Instructions CPAP supplies - Mask, tubing, connectors, See Instructions, 2 refills Enbrel Prefilled Syringe 50 mg/mL subcutaneous solution, See Instructions, 1 refills fresstyle denny 3+ sensors, See Instructions, 4 refills furosemide 20 mg Tab, 20 mg= 1 tab(s), Oral, Daily, 4 refills gabapentin 100 mg Cap, See Instructions hydroxychloroquine 200 mg Tab, See Instructions, 3 refills Insulin Lispro KwikPen 100 units/mL injectable solution, See Instructions, 1 refills Lantus Solostar Pen 100 units/mL subcutaneous solution, 20 unit(s), SubCutaneous, Daily, 4 refills lisinopril 5 mg Tab, 2.5 mg= 0.5 tab(s), Oral, Daily, 3 refills metformin 850 mg Tab, 850 mg= 1 tab(s), Oral, Daily, 4 refills montelukast 10 mg Tab, See Instructions, 4 refills Ozempic (1 mg dose) 4 mg/3 mL subcutaneous solution, See Instructions, 3 refills Pantoprazole [address] Tab, 40 mg= 1 tab(s), Oral, Daily, 4 refills Reclast, See Instructions rosuvastatin 20 mg Tab, See Instructions, 3 refills sertraline 50 mg Tab, 50 mg= 1 tab(s), Oral, Daily, 3 refills Vitamin C 25 mg oral tablet, chewable Allergies Antihistamine (VERY FOGGY BRAIN) Daypro (INEFFECTIVE) Humira (Hives) statins (MUSCLE CRAMPS) Social History Alcohol - Denies Alcohol Use, 12/16/2023 Never, 12/18/2024 Substance Abuse - Denies Substance Abuse, 01/13/2021 Never, 12/18/2024 Tobacco - Denies Tobacco Use, 01/13/2021 Never (less than 100 in lifetime) Tobacco Use:. Yes, 12/28/2024 Family History Family history is negative Immunizations Vaccine Date Status Comments influenza virus vaccine, inactivated 12/27/2023 Recorded influenza virus vaccine, inactivated 12/22/2022 Recorded SARS-CoV-2 mRNA (tozinameran 5y-11y) vac - Not Given Postpone due to refusal influenza virus vaccine, inactivated 01/22/2022 Recorded influenza virus vaccine, inactivated 01/17/2020 Recorded influenza virus vaccine, inactivated 01/04/2019 Recorded influenza virus vaccine, inactivated 12/31/2017 Recorded influenza virus vaccine, inactivated 02/16/2017 Recorded pneumococcal 23-valent vaccine 04/05/2015 Recorded influenza virus vaccine, inactivated 02/03/2015 Recorded pneumococcal 13-valent vaccin (more content not included)... Normal [facility] Comment on above: Result Comment: Elec tronically Signed By: Micaela Beltrán\.br\Date and Time Signed: 12/28/24 15:05 EDT Ambulatory Visit Summaryon 0 12-19-2024 Ambulatory Visit Summary Ambulatory Visit Summary LJ DOLL :1955 Visit Date:12/18/2024 Ambulatory Visit Instructions Your Diagnosis Encounter for subsequent annual wellness visit (AWV) in Medicare patient Diabetic neuropathy Long-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 Type 2 diabetes mellitus with chronic kidney disease Stage 2 chronic kidney disease Hyperlipidemia Major depressive disorder in remission Breast cancer screening by mammogram Obesity due to excess calories Tests Performed MA Mamm Screen w/CAD if perf and 3D Jt -- Results Pending -- Please visit your patient portal for your results or contact your primary care physician. Your Care Team Attending Physician - Krishna SIMENTAL, Arley Heredia Primary Care Physician - Micaela Beltrán This Is Your Medications List Misc Prescription (CPAP supplies - Mask, tubing, connectors) Misc Prescription (fresstyle denny 3+ sensors) amitriptyline (amitriptyline 25 mg Tab) ascorbic acid (Vitamin C 25 mg oral tablet, chewable) aspirin calcium-vitamin D carvedilol (carvedilol 3.125 mg Tab) etanercept (Enbrel Prefilled Syringe 50 mg/mL subcutaneous solution) furosemide (furosemide 20 mg Tab) gabapentin (gabapentin 100 mg Cap) hydroxychloroquine (hydroxychloroquine 200 mg Tab) insulin glargine (Lantus Solostar Pen 100 units/mL subcutaneous solution) insulin lispro (Insulin Lispro KwikPen 100 units/mL injectable solution) lisinopril (lisinopril 5 mg Tab) metformin (metformin 850 mg Tab) montelukast (montelukast 10 mg Tab) multivitamin with minerals (Celebrate Multivitamin oral capsule) pantoprazole (Pantoprazole [address] Tab) rosuvastatin (rosuvastatin 20 mg Tab) semaglutide (Ozempic (1 mg dose) 4 mg/3 mL subcutaneous solution) sertraline (sertraline 50 mg Tab) zoledronic acid (Reclast) Procedures Performed Blepharoplasty of upper eyelid (01/20/2021), History of placement of stent for coronary artery disease (2016), Appendectomy, Arthroplasty of the hip, Arthroplasty of the knee, Carpal tunnel release, Excision of ganglion cyst, Release of trigger finger, Total hysterectomy. Discharge Vitals Heart Rate (Peripheral) 60 Respiratory Rate 18 Blood Pressure 118/60 Height 160 cm Height 63 in Weight 89.8 kg Weight 197.975 lb BMI 35.08 What to do next Scheduled Follow-Up Appointments 2024 2:40 PM EDT With: Micaela Beltrán Where: [address] [id number]- Wednesday2025 1:00 PM EDT With: Ronal Singh PA-C Where: [facility] [place] 2025 11:00 AM EDT With: Where: [address] [address]- Medications What How Much When Why Instructions Unchanged amitriptyline (amitriptyline 25 mg Tab) See instructions TAKE 1 TABLET BY MOUTH AT BEDTIME Unchanged ascorbic acid (Vitamin C 25 mg oral tablet, chewable) Unchanged aspirin 81 Milligram Every day Unchanged calcium-vitamin D 1 TAB By Mouth Every day Unchanged carvedilol (carvedilol 3.125 mg Tab) 1 Tablets By Mouth 2 times a day Unchanged etanercept (Enbrel Prefilled Syringe 50 mg/ mL subcutaneous solution) See instructions INJECT 1 SYRINGE SUBCUTANEOUSLY WEEKLY Unchanged furosemide (furosemide 20 mg Tab) 1 Tablets By Mouth Every day Unchanged gabapentin (gabapentin 100 mg Cap) See instructions TAKE 2 CAPSULES BY MOUTH AT BEDTIME Unchanged hydroxychloroquine (hydroxychloroquine 200 mg Tab) See instructions TAKE 1 TABLET BY MOUTH TWICE DAILY Unchanged insulin glargine (Lantus Solostar Pen 100 units/ mL subcutaneous solution) 20 Units Subcutaneous Every day Unchanged insulin lispro (Insulin Lispro KwikPen 100 units/ mL injectable solution) See instructions SubCutaneous BIDAC Unchanged lisinopril (lisinopril 5 mg Tab) 0.5 Tablets By Mouth Every day Unchanged metformin (metformin 850 mg Tab) 1 Tablets By Mouth Every day Unchanged Misc Prescription (CPAP supplies - Mask, tubing, connectors) See instructions JESSICA on CPAP CPAP supplies - Mask, tubing, connectors Unchanged Misc Prescription (fresstyle denny 3+ sensors) See instructions to check BS e11.22 Unchanged montelukast (montelukast 10 mg Tab) See instructions TAKE ONE TABLET BY MOUTH EVERY EVENING Unchanged multivitamin with minerals (Celebrate Multivitamin oral capsule) 1 Capsules By Mouth Every day Unchanged pantoprazole (Pantoprazole [address] Tab) 1 Tablets By Mouth Every day Unchanged rosuvastatin (rosuvastatin 20 mg Tab) See instructions TAKE 1 TABLET BY MOUTH DAILY Unchanged semaglutide (Ozempic (1 mg dose) 4 mg/ 3 mL subcutaneous solution) See instructions INJECT SUBCUTANEOUSLY 1 MG EVERY WEEK Unchanged sertraline (sertraline 50 mg Tab) 1 Tablets By Mouth Every day Unchanged zoledronic acid (Reclast) See instructions gets IV once a year Allergies Antihistamine (VERY FOGGY (more content not included)... Normal [facility] Family Medicine Office/Clini c Noteon 12-19-2024 Family Medicine Office/Clinic Note Family Medicine Office/Clinic Note Chief Complaint Subsequent Medicare Wellness Review of Systems PHQ Score Initial Depression Screen Score: 0 SCORE Physical Exam Vitals & Measurements HR: 60(Peripheral) RR: 18 BP: 118/60 SpO2: 99% HT: 63 in HT: 160 cm WT: 197.975 lb WT: 89.8 kg BMI: 35.08 Assessment/Plan 1. Encounter for subsequent annual wellness visit (AWV) in Medicare patient (Z00.00: Encounter for general adult medical examination without abnormal findings) Patient in office today for her Subsequent Medicare Wellness Visit. A customized and personalized print out of all the current AHRQ USPSTF???s recommendations for preventative services and all current CDC recommended immunizations, relevant risk recommendations and the following patient brochures were given. Reviewed What can I expect during my Medicare preventative care visit CDC-Falls Prevention and home safety screening reviewed. Patient denies any falls in last 12 months, voices no worry about falling, exhibits no problems with sitting and standing. Pt voices understanding with keeping walk way area free of clutter to prevent tripping and/or falling. [place] Advance Directives reviewed, present at home. Encouraged patient to bring in to have scanned into chart. Patient is an organ donor. Patient denies any problems with ADL???s and Instrumental ADL???s. Cognitive screening completed with memory and clock face drawing. Patient recited 2/3 memory words. Immunization Record reviewed with the patient. Discussed Shingrix vaccine and availability, she plans to get the series at local pharmacy. Handout provided. Immunization record is up to date. Allergies and medications reviewed and up to date. Patient denies concerns with taking medication as prescribed, reviewed OTC medications with patient with medication list up to date. Blood tests were reviewed: Discussed what tests need to be updated. Dexa Scan last screening 02/15/2023. Patient has next one scheduled 03/2025 at [facility]. Reviewed concerns with bladder control over past 6 months with no concerns. Reviewed pain symptoms with patient: 5/10 knees patient takes Tylenol to assist with acute pain prn. Reviewed all outside providers that patient follows. Last visit summary notes available in chart and/or have been requested. Follow up scheduled: 12/28/2024 AWV has been scheduled: 12/20/2025 Medicare provides yearly screening for alcohol and depression concerns. This is completed during our Medicare wellness visit for those who do not have a current diagnosis of depression or concerns with alcohol use. I spent a total of (12) minutes on this date of service which included preparing to see the patient, face to face patient care, completing clinical documentation, obtaining and/or reviewing separately obtained history, counseling and educating the patient with handouts. Explanations were provided with reviewing questionnaires. AUDIT risk assessment screening completed, risk score(0) with patient denying concerns with use. Completed PHQ-2 risk assessment for depression with risk score(0), negative findings. Patient has been reminded to notify the provider if there would be a change or concerns with symptoms with fear, unable to sleep, worrying too much or feeling down and/or sad with lost of interest with daily activities. Will continue to monitor with screening yearly during Medicare wellness visits. 2. Diabetic neuropathy (E11.40: Type 2 diabetes mellitus with diabetic neuropathy, unspecified) Patient continues taking gabapentin for neuropathy and voices effectiveness of this medication. Patient takes medications as prescribed and checks blood sugars. Patient follows follows with Endocrinology as directed. 3. Long-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 (Z79.4: retirement (current) use of insulin) See #2. 4. 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 Patient does monitors BS at home: DM stoplight handout reviewed with s/s to monitor for and report to PCP. Discussed ADA dietary recommendations with low carbs and reduce sugar intake. Patient encouraged to increase daily physical activity, adequate water intake and maintain a healthy weight. Pt follows up with PCP with yearly DM foot checks, last completed 07/07/[address] Triana. Reminded patient to perform at home foot checks to prevent future complications, wash with soap and water, apply lotion to bilateral feet and in-between toes to prevent dryness and/or cracking. Wear proper fitting shoes and loose fitting socks and/or hose. Follows up with yearly DM eye exams, last visit notes from [facility] requested. See #5. 5. Stage 2 chronic kidney disease (N18.2: Chronic kidney disease, stage 2 (mild)) Reviewed health kidney nutritional handout with importance of preventing strain on the kidneys. Monitor sodium intake daily, educational handout reviewed and provided to assist the patient (more content not included)... Normal [facility] Comment on above: Result Comment: Elec tronically Signed By: Candelario PLANISHING HAMMER OPERATOR, Micaela L\.br\Date and Time Signed: 12/19/24 08:38 EDT\.br\Electronically Co-Signed By: Ling Garber\.br\Date and Time Co-Signed: 12/18/24 16:34 EDT Heart and Vascular Office/Cl inic Noteon 12-15-2024 Heart and Vascular Office/Clinic Note Heart and Vascular Office/Clinic Note Chief Complaint 6 month follow up History of Present Illness he patient is a very pleasant 69-year-old female with past medical history of diabetes, dyslipidemia, coronary artery disease with PCI in [address] [facility] with a 3.0 x 32 mm Synergy drug-eluting stent to LAD, which was done in a context of abnormal stress test, ordered in the setting of worsening shortness of breath. Patient comes in for 6-month follow-up today. Reviewed prior nuc med stress test. At last visit, patient saw Dr. Shah at which time she was ordered a nuc med stress test to rule out ischemia. Stress test came back showing no ischemia and no regional wall motion abnormality. Patient reports she is doing very well overall at this time. She reports that she does not however have any chest pain or tightness. She states the only time she gets short of breath is when she is walking upstairs. She states she had this extensively worked up by her prior chucking and sawing machine operator about an day cannot find any abnormality, so patient just rests when she is finished with the stairs. Patient is compliant with all medications for CAD including aspirin, rosuvastatin, carvedilol, lisinopril. Doing well on all medications at this time. Patient had rosuvastatin increased to 20 mg in 06/2024 due to slightly elevated LDL levels on prior lipid check. Her most recent lipids from 08/2024 came back, normal range and LDL is not below 70 which is the goal after patient had a stent placed. She is tolerating increased dose of rosuvastatin well and we will have her continue current medication. Patient denies chest pain, shortness of breath, heart palpitations, dizziness/lightheade dness, and swelling in lower legs. REVIEWED PRIOR NOTE FROM 06/02/2024: She presents for establishment. Overall, has been [...] no significant side effects. Review of Systems ROS - Provider Constitutional: no fever, no chills, no sweats, no weakness Respiratory: no shortness of breath, no cough Cardiovascular: no chest pain Neuro: no dizziness. no loss of consciousness Physical Exam Vitals & Measurements HR: 72(Peripheral) RR: 18 BP: 130/70 SpO2: 98% HT: 63 in HT: 160 cm WT: 88.9 kg WT: 195.991 lb BMI: 34.73 General: alert, no acute distress Cardiovascular: regular rate and rhythm, no murmur normal peripheral perfusion Respiratory: Lungs CTAB, respirations non labored Extremities: no edema left lower extremity. no edema right lower extremity Neurological: oriented x 4, LOC appropriate for age, speech normal Skin: Warm, dry, intact- no rash or concerning lesions Cardiac Diagnostics (06/15/2024 11:20 EDT NM Myocardial Spect Rest/Stress 1 Day) Interpretation Summary Normal global and regional wall motion in all territories. mildly elevated TID at 1.09 [1] Assessment/Plan 1. 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 This was done at [facility] in [place]. Patient compliant with all medications for CAD including aspirin 81 mg daily, rosuvastatin 20 mg daily 20 mg daily, carvedilol 3.125 mg twice daily. She is doing well at this time with no chest pain or anginal symptoms. Continue current medications. 2. Hyperlipidemia (E78.5: Hyperlipidemia, unspecified) Patient is currently taking high intensity statin of rosuvastatin 20 mg daily. Most recent lipid check in from 08/2024 showed all cholesterol levels at goal. Continue current medication. Follow-up with me in 6 months or sooner if needed Portions of this record may have been created with voice recognition artificial intelligence software, specifically [employer], [employer] and or [employer]. Substitutions may have occurred due to the inherent limitations of voice recognition and artificial intelligence software. 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 Normal [facility] Comment on above: Result Comment: Elec tronically Signed By: Francisco MCINTYRE, Ronal Epps\.deric\Date and Time Signed: 12/15/24 15:29 EDT Glucose (Bld) [Mass/Vol]on 0 11-30-2024 Glucose Blood, POC 217 mg/dL [facility] Interpretation and review of laboratory results Abnormal [facility] HbA1c (Bld) [Mass fraction]o n 11-30-2024 Interpretation and review of laboratory results Normal [facility] Laboratory - Hematology and Cell countson 11-30-2024 HbA1c (Bld) [Mass fraction] 7 % [facility] No Panel Informationon 11-30 [facility] Reminderson 11-09-2024 Reminders Reminders - From: Cindy [...] 09:02:00 EDT Subject: done pt scheduled 12/15 [facility] No Panel Informationon 11-06 Complexity: Intermediate [...] uncontrollable bleeding, or complications. Dressing type: bandage [facility] Lesion length (cm): 0.7 Lesion width [...] ml Estimated blood loss: < 1.0 ml [facility] Orders Onlyon 10-11-2024 Orders Only [id number] Lj Doll 1955 F Date Provider Department Center 10/11/2024 Mustapha-OMER ACEVEDO Brent Bradly Family History Problem Relation Age of Onset Coronary artery disease Mother Coronary artery disease Father Brain cancer Brother Family Status - Relation Status Age at Mother Father Brother [facility] No Panel Informationon 09-29 Type of biopsy: [...] Photo taken Amount of lidocaine used: 1cc [facility] PVR Lower EXT Complete Bi laton 09-12-2024 [...] M.D. Transcribed by: TIAN Technologist: PIPE Leyva [facility] Ambulatory Visit Summaryon 0 08-31-2024 Ambulatory Visit Summary Ambulatory Visit Summary LJ DOLL :1955 Visit Date:08/31/2024 Ambulatory Visit Instructions Your Diagnosis Anemia of chronic disease 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 RA (rheumatoid arthritis) Long-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 Major depressive disorder in remission CAD in belkofski artery Disorder of arteries and arterioles, unspecified [...] Follow-Up Appointments Wednesday 1:00 PM EDT Where: [address] [id number]- You Need to Complete the Following US PVR Lower EXT Complete Bilat, 08/31/24, Routine, Order for future visit, Transport Mode: Ambulatory, Reason: Leg pain, No, Disorder of arteries and arterioles, unspecified, pp_set_radiology_sub specialty, Required & Missing, [facility] Someone Will Contact You Regarding These Appointments [facility] External Ambulatory Referral, Rheumatology, 08/31/24 11:45:00 EDT, Anemia of chronic disease 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 RA (rheumatoid arthritis) Long-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 Medications What How Much When Why Instructions New Misc Prescription (fresstyle denny 3+ sensors) See instructions Refills: 4 to check BS e11.22 Pickup at [facility]/pharmacy #[id number] Unchanged etanercept (Enbrel Prefilled Syringe 50 mg/ mL subcutaneous solution) See instructions INJECT 1 SYRINGE SUBCUTANEOUSLY WEEKLY Pickup at [facility]/pharmacy #[id number] Unchanged hydroxychloroquine (hydroxychloroquine 200 mg Tab) See instructions TAKE 1 TABLET BY MOUTH TWICE DAILY Pickup at [facility]/pharmacy #6177 Unchanged rosuvastatin (rosuvastatin 20 mg Tab) See instructions TAKE 1 TABLET BY MOUTH DAILY Pickup at [facility]/pharmacy #6177 Unchanged semaglutide (Ozempic (1 mg dose) 4 mg/ 3 mL subcutaneous solution) See instructions INJECT SUBCUTANEOUSLY 1 MG EVERY WEEK Pickup at [facility]/pharmacy #6177 Unchanged amitriptyline (amitriptyline 25 [...] By Mout (more content not included)... Normal [facility] CBC w/ Auto Diffon 5 Basophil Absolute 0.1 E9/L Normal 0.0-0.2 [facility] Comment on above: Performed By: #### 2 [id number] #### [facility] [address] [place] [address] Basophils/100 WBC (Bld) 1.1 % Normal 0.0-2.0 [facility] Comment on above: Performed By: #### 2 [id number] #### [facility] [address] [place] [address] Eos Absolute 0.3 E9/L Normal 0.0-0.5 [facility] Comment on above: Performed By: #### 2 [id number] #### [facility] [address] [place] [address] Eosinophils/100 WBC (Bld) 3.2 % Normal 0.0-8.0 [facility] Comment on above: Performed By: #### 2 [id number] #### [facility] [address] [place] [address] Erythrocyte distribution width (RBC) [Ratio] 14.3 % High 10.9-14.2 [facility] Comment on above: Performed By: #### 2 [id number] #### [facility] [address] [place] [address] Hematocrit (Bld) [Volume fraction] 40.2 % Normal 34.0-46.0 [facility] Comment on above: Performed By: #### 2 [id number] #### [facility] [address] [place] [address] Hemoglobin (Bld) [Mass/Vol] 13.3 g/dL Normal 12.0-16.0 [facility] Comment on above: Performed By: #### 2 [id number] #### [facility] [address] [place] [address] Lymph Absolute 2.8 E9/L Normal 1.0-4.0 [facility] Comment on above: Performed By: #### 2 [id number] #### [facility] [address] [place] [address] Lymphocytes/100 WBC (Bld) 30.6 % Normal 14.0-50.0 [facility] Comment on above: Performed By: #### 2 [id number] #### [facility] [address] [place] [address] MCH (RBC) [Entitic mass] 28.6 pg Normal 27.0-34.0 [facility] Comment on above: Performed By: #### 2 [id number] #### [facility] [address] [place] [address] MCHC (RBC) [Mass/Vol] 33.1 g/dL Normal 31.4-36.0 [facility] Comment on above: Performed By: #### 2 [id number] #### [facility] [address] [place] [address] MCV (RBC) [Entitic vol] 86.3 fL Normal 80.0-100.0 [facility] Comment on above: Performed By: #### 2 [id number] #### [facility] [address] [place] [address] [place] Absolute 0.9 E9/L Normal 0.2-1.0 [facility] Comment on above: Performed By: #### 2 [id number] #### [facility] [address] [place] [address] Monocytes/100 WBC (Bld) 9.3 % Normal 4.0-14.0 [facility] Comment on above: Performed By: #### 2 105778 #### [facility] [address] [place] [address] Neutro Absolute 5.1 E9/L Normal 2.0-7.5 [facility] Comment on above: Performed By: #### 2 [id number] #### [facility] [address] [place] [address] Neutro Auto 55.8 % Normal 36.0-75.0 [facility] Comment on above: Performed By: #### 2 [id number] #### [facility] [address] [place] [address] Platelet 298.0 E9/L Normal 150.0-500.0 [facility] Comment on above: Performed By: #### 2 [id number] #### [facility] [address] [place] [address] Platelet mean volume (Bld) [Entitic vol] 7.4 fL Normal 6.4-10.8 [facility] Comment on above: Performed By: #### 2 532213 #### [facility] [address] [place] [address] RBC 4.7 E12/L Normal 4.3-5.9 [facility] Comment on above: Performed By: #### 2 [id number] #### [facility] [address] [place] [address] WBC 9.2 E9/L Normal 4.0-11.0 [facility] Comment on above: Performed By: #### 2 068074 #### [facility] [address] [place] [address] CHEMISTRYOrdered By: SYSTEM SYSTEM on 08-31-2024 Albumin [...] (Bld) [Mass fraction] 7.3 % High <=5.9% [facility] ChemAutoSS CMPon 08-31-2024 Albumin [Mass/Vol] 4.5 g/dL Normal 3.3-5.0 [facility] Comment on above: Performed By: #### 2 [id number] #### [facility] [address] [place] [address] Albumin/Globulin [Mass ratio] 1.5 {ratio} Normal 1.1-2.2 [facility] Comment on above: Performed By: #### 2 [id number] #### [facility] [address] [place] [address] Alk Phos 90 Int._Unit/L Normal 21-98 [facility] Comment on above: Performed By: #### 2 [id number] #### [facility] [address] [place] [address] ALT 32 Int._Unit/L Normal 6-46 [facility] Comment on above: Performed By: #### 2 [id number] #### [facility] [address] [place] [address] Anion gap [Moles/Vol] 13 mmol/L Normal 6-16 [facility] Comment on above: Performed By: #### 2 568062 #### [facility] [address] [place] [address] AST 33 Int._Unit/L Normal 5-43 [facility] Comment on above: Performed By: #### 2 [id number] #### [facility] [address] [place] [address] Bili Total 0.3 mg/dL Normal 0.0-1.1 [facility] Comment on above: Performed By: #### 2 360280 #### [facility] [address] [place] [address] BUN/Creat Ratio 24 No Units High 10-20 [facility] Comment on above: Performed By: #### 2 [id number] #### [facility] [address] [place] [address] Calcium [Mass/Vol] 9.4 mg/dL Normal 8.9-11.1 [facility] Comment on above: Performed By: #### 2 [id number] #### [facility] [address] [place] [address] Chloride [Moles/Vol] 107 mmol/L Normal 101-[address] [facility] Comment on above: Performed By: #### 2 [id number] #### [facility] [address] [place] [address] CO2 [Moles/Vol] 22 mmol/L Normal 21-31 [facility] Comment on above: Performed By: #### 2 [id number] #### [facility] [address] [place] [address] Creatinine [Mass/Vol] 0.9 mg/dL Normal 0.5-1.3 [facility] Comment on above: Performed By: #### 2 [id number] #### [facility] [address] [place] [address] Globulin (S) [Mass/Vol] 3.0 g/dL Normal 1.4-4.0 [facility] Comment on above: Performed By: #### 2 [id number] #### [facility] [address] [place] [address] Glucose [Mass/Vol] 136 mg/dL Normal 55-199 [facility] Comment on above: Performed By: #### 2 [id number] #### [facility] [address] [place] [address] Potassium [Moles/Vol] 4.3 mmol/L Normal 3.5-5.3 [facility] Comment on above: Performed By: #### 2 [id number] #### [facility] [address] [place] [address] Protein [Mass/Vol] 7.5 g/dL Normal 6.0-7.8 [facility] Comment on above: Performed By: #### 2 [id number] #### [facility] [address] [place] [address] Sodium [Moles/Vol] 138 mmol/L Normal 135-145 [facility] Comment on above: Performed By: #### 2 [id number] #### [facility] [address] [place] [address] Urea nitrogen [Mass/Vol] 22 mg/dL High 5-21 [facility] Comment on above: Performed By: #### 2 [id number] #### [facility] [address] [place] [address] Family Medicine Office/Clini c Noteon 08-31-2024 Family [...] % (02/29/24 10:02:00) Referred to Cardiology @ [facility]. June 02 was her visit with him Knee brace recommended at [facility] due ro effusion of Lt knee. ? [...] rheumatoid arthritis and is currently without a visual c developer; Enbrel is needed for ongoing management. - [...] CBC w/ Auto Diff Comprehensive Metabolic Panel [facility] External Ambulatory Referral HgbA1c Lipid Panel Urine Microalbumin/Creatin ine Ratio 2. Stage 2 chronic kidney disease (N18.2: Chronic kidney disease, stage 2 (mild)) - Will recheck today Ordered: CBC w/ Auto Diff Comprehensive Metabolic Panel [facility] External Ambulatory Referral HgbA1c Lipid Panel Urine Microalbumin/Creatin ine Ratio 3. 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 Ordered: CBC w/ Auto Diff Comprehensive Metabolic Panel [facility] External Ambulatory Referral HgbA1c Lipid Panel Urine Microalbumin/Creatin ine Ratio 4. RA (rheumatoid arthritis) (M06.9: Rheumatoid arthritis, unspecified) - Refill Enbrel and refer to a visual c developer. Ordered: CBC w/ Auto Diff Comprehensive Metabolic Panel [facility] External Ambulatory Referral HgbA1c Lipid Panel Urine Microalbumin/Creatin ine Ratio 5. Long-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 (Z79.4: retirement (current) use of insulin) - Follows with Endo Ordered: CBC w/ Auto Diff Comprehensive Metabolic Panel [facility] External Ambulatory Referral HgbA1c Lipid Panel Urine Microalbumin/Creatin ine Ratio 6. Major depressive disorder in remission (F32.5: Major depressive disorder, single episode, in full remission) - Monitor mental health. Ordered: CBC w/ Auto Diff Comprehensive Metabolic Panel HgbA1c Lipid Panel Urine Microalbumin/Creatin ine Ratio 7. CAD in belkofski artery (I25.10: Atherosclerotic heart disease of belkofski coronary artery without angina pectoris) - Monitor cardiovascular health. Ordered: CBC w/ Auto Diff Comprehensive Metabolic Panel HgbA1c Lipid Panel Urine Microalbumin/Creatin ine Ratio 8. 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 - Screening showed abnormal readings. Ordered: US PVR Lower EXT Complete Bilat Orders: etanercept, See Instructions, INJEC (more content not included)... Normal [facility] Comment on above: [...] Normal 4.0 - 11.0 E9/L Remisol Heme [id number] 08-31-2024 HbA1c (Bld) [Mass fraction] 7.3 % High <=5.9 [facility] Comment on above: Performed By: #### 7 [id number] #### [facility] [address] [place] [address] Lipid Panelon 08-31-2024 Cholesterol [Mass/Vol] 153 mg/dL Normal 120-200 [facility] Comment on above: Performed By: #### 2 [id number] #### [facility] [address] [place] [address] Cholesterol in HDL [Mass/Vol] 66 mg/dL Invalid Interpretation Code [facility] Comment on above: Result Comment: '>= 60 LOW RISK' '<= 40 HIGH RISK' Performed By: #### 2 [id number] #### [facility] [address] [place] [address] Cholesterol in LDL [Mass/Vol] 63 mg/dL Normal <=129 [facility] Comment on above: Performed By: #### 2 [id number] #### [facility] [address] [facility] [place] [place] [facility] [place] [address] Cholesterol in VLDL [Mass/Vol] 27 mg/dL Normal 7-40 [facility] Comment on above: Performed By: #### 2 [id number] #### [facility] [address] [place] [address] Triglyceride [Mass/Vol] 135 mg/dL Normal <=149 [facility] Comment on above: Performed By: #### 2 [id number] #### [facility] [address] [place] [address] U MA/Cr Ratioon 08-31-2024 Microalb/Cr Ratio 155.8 mg/gm Cr High .0-30.0 [facility] Comment on above: Result Comment: 30-3 00 mg/g Cr indicates an increased risk for diabetic nephropathy. >300 mg/g Cr is consistent with clinical nephropathy. Performed By: #### 1 [id number] #### [facility] [address] [place] [address] U Creatinine 30.8 mg/dL Invalid Interpretation Code [facility] Comment on above: Performed By: #### 1 [id number] #### [facility] [address] [place] [address] U Microalb 4.8 mg/dL High 0.0-1.9 [facility] Comment on above: Performed By: #### 1 [id number] #### [facility] [address] [place] [address] eGFRon 08-31-2024 eGFR 68 mL/min/1.73 m2 Normal >=59 [facility] Comment on above: Performed By: #### 1 [id number] #### [facility] [address] [place] [address] Pre-Visit Planningon 025 Pre-Visit Planning Pre-Visit Planning - From: Lorenza HERRING, Ros To: Arley Keller MD; Sent: 08/30/2024 13:13:07 EDT Subject: Pre-Visit Planning Due Date/Time: 08/30/2024 13:13:00 EDT Caller Name: LJ DOLL; Caller Number: Tiffany , Joni Or Dr. Keller, *Based on your response below, [...] feel free to contact me at extension [phone]. Thank you! Ros Britt, BENITON, RN, CCM, CCDS, CCDS-O CDI Heel Coverer Machine Operator [place] [address] P: [phone] F: [phone] [email or web address] - From: Arley Keller MD To: Ros Britt RN; Sent: 08/30/2024 13:43:36 EDT Subject: RE: Pre-Visit Planning Caller Name: LJ DOLL; Caller Number: Tiffany , Joni - Anemia of chronic disease Normal [facility] Pre-Visit Planning Pre-Visit Planning - From: Ros Britt RN To: Arley Keller MD; Sent: 08/30/2024 13:06:40 EDT Subject: Pre-Visit Planning Due Date/Time: 08/30/2024 13:06:00 EDT Caller Name: LJ DOLL; Caller Number: Tiffany , Joni Or Dr. Keller, *Based on your response below, [...] feel free to contact me at extension [phone]. Thank you! Ros Britt, BSN, RN, CCM, CCDS, CCDS-O CDI Heel Coverer Machine Operator [address] [address] P: [phone] F: [phone] [email or web address] - From: Krishna SIMENTAL, Arley Heredia To: Lorenza HERRING, Ros; Sent: 08/30/2024 13:11:55 EDT Subject: RE: Pre-Visit Planning Caller Name: LJ DOLL; Caller Number: Tiffany , Joni -Chronic kidney disease stage 2 Normal [facility] NM Myocardial Spect Rest/Str ess 1 Dayon 06-19-2024 MD Myocardial Spect Rest/Stress 1 Day Exam Date/Time: 06/15/2024 11:20 EDT Reason for Exam: I25.10;CAD Coronary artery disease Report [facility] [address] [place] [address] Nuclear Stress Report Name: LJ DOLL Study Date: 06/15/2024 09:06 AM Patient Location: [facility] Ambulatory(s) [facility] : 1955 (M/d/yyyy) Gender: Female Age: 69 yrs Ethnicity: T Reason For Study: I25.10;CAD Coronary artery disease Ordering Physician: Randolph Shah Referring Physician: Randolph Shah Protocol 20217 Pharmacologic Lexiscan stress with Isotope. Study Protocol: [...] Signed by: Andrey Kaminski MD Transcribed by: [facility] Technologist: GARDENIA Taylor [facility] Glucose (Bld) [Mass/Vol]on 0 06-07-2024 Glucose Blood, POC 193 mg/dL [facility] - Hematology and Cell countson 06-07-2024 HbA1c (Bld) [Mass fraction] 7 % [facility] No Panel Informationon 06-07 Interpretation and review of laboratory results Normal [facility] Heart and Vascular Office/Cl inic Noteon 06-02-2024 Heart and Vascular Office/Clinic Note Heart and Vascular Office/Clinic Note Chief Complaint New Pt Establish Care History of Present Illness The patient is a very pleasant 69-year-old female with past medical history of diabetes, dyslipidemia, coronary artery disease with PCI in [address] [facility] with a 3.0 x 32 mm [...] or concerning lesions Assessment/Plan 1. CAD in belkofski artery (I25.10: Atherosclerotic heart disease of belkofski coronary artery without angina pectoris) Will request prior cardiac records from [facility]. The patient seems to be doing [...] dislocation of shoulder BMI 34.0-34.9,adult CAD in belkofski artery Carotid occlusion, left Chronic kidney disease [...] 4 m (more content not included)... Normal [facility] Comment on above: Result Comment: Elec tronically Signed By: Pablo SIMENTAL, Randolph De Souza\.br\Date and Time Signed: 06/02/24 11:43 EST Basic Metabolic Panelon 04-06 Anion gap [Moles/Vol] 12.2 mmol/L Normal 6.0-15.0 [facility] Comment on above: Performed By: #### P HOS, BMP, MG #### [facility] [address] [place] [address] [place] Calcium [Mass/Vol] 9.5 mg/dL Normal 8.6-10.3 [facility] Comment on above: Performed By: #### P HOS, BMP, MG #### [facility] [address] [place] [id number] [place] Chloride [Moles/Vol] 105 mmol/L Normal 98-107 [facility] Comment on above: Performed By: #### P HOS, BMP, MG #### [facility] [address] [place] [id number] [place] CO2 [Moles/Vol] 29.0 mmol/L Normal 21.0-31.0 [facility] Comment on above: Performed By: #### P HOS, BMP, MG #### [facility] [address] Creatinine [Mass/Vol] 0.95 mg/dL Normal 0.60-1.20 [facility] Comment on above: Performed By: #### P HOS, BMP, MG #### [facility] [address] [place] [address] [place] GFR/1.73 sq M.predicted MDRD (S/P/Bld) [Vol rate/Area] mL/min/{1.73_m2} Normal [facility] Comment on above: Performed By: #### P HOS, BMP, MG #### [facility] [address] Glucose [Mass/Vol] 141 mg/dL High 70-100 [facility] Comment on above: Result Comment: [place] Glucose Reference Range is dependent on time and content of last meal. Glucose of more than 200 mg/dL in a nonstressed, ambulatory subject supports the diagnosis of Diabetes Mellitus. ADA recommended reference range Performed By: #### P HOS, BMP, MG #### [facility] [address] [place] [address] [place] Potassium [Moles/Vol] 4.2 mmol/L Normal 3.5-5.1 [facility] Comment on above: Performed By: #### P HOS, BMP, MG #### [facility] [address] [place] [address] [place] Sodium [Moles/Vol] 142 mmol/L Normal 136-145 [facility] Comment on above: Performed By: #### P HOS, BMP, MG #### [facility] [address] [place] [address] [place] Urea nitrogen [Mass/Vol] 20 mg/dL Normal 7-25 [facility] Comment on above: Performed By: #### P HOS, BMP, MG #### [facility] [address] [place] [address] [place] Calcium [Mass/volume] in Ser um or PlasmaOrdered By: Fransisco Benavides on 04-25-2024 Calcium [Mass/Vol] Calcium [Mass/volume] in Serum or Plasma 8.6-10.3 [facility] Carbon dioxide, total [Moles /volume] in Serum or PlasmaOrdered By: Fransisco Benavides on 04-25-2024 CO2 [Moles/Vol] Carbon dioxide, total [Moles/volume] in Serum or Plasma 21.0-31.0 [facility] Chloride [Moles/volume] in S melvin or PlasmaOrdered By: Fransisco Benavides on 04-25-2024 Chloride [Moles/Vol] Chloride [Moles/volume] in Serum or Plasma 98-107 [facility] Creatinine [Mass/volume] in Serum or PlasmaOrdered By: Fransisco Benavides on 04-25-2024 Creatinine [Mass/Vol] Creatinine [Mass/volume] in Serum or Plasma 0.60-1.20 [facility] Glucose [Mass/volume] in Ser um or PlasmaOrdered By: Fransisco Benavides on 04-25-2024 Glucose [Mass/Vol] Glucose [Mass/volume] in Serum or Plasma High 70-100 [facility] Comment on above: ADA recommended refe rence rangeRandom Glucose Reference Range is dependent on time and content of last meal. Glucose of more than 200 mg/dL in a nonstressed, ambulatory subject supports the diagnosis of Diabetes Mellitus. Magnesiumon 04-25-2024 Magnesium [Mass/Vol] 1.6 mg/dL Low 1.9-2.7 [facility] Comment on above: Result Comment: PERF ORMED BY: [place] [address] PATHOLOGIST ROD BUSTER CHACORTA WALKER M.D. Performed By: #### P HOS, BMP, MG #### [address] Magnesium [Mass/volume] in S melvin or PlasmaOrdered By: Fransisco Benavides on 04-25-2024 Magnesium [Mass/Vol] Magnesium [Mass/volume] in Serum or Plasma Low 1.9-2.7 [facility] No Panel InformationOrdered By: Fransisco Benavides on 04-25-2024 Estimated GFR (CKD-EPI) > 60.0 mL/Min [facility] Creatinine Clearance (Chem N/A [facility] Phosphate [Mass/volume] in S melvin or PlasmaOrdered By: Fransisco Benavides on 04-25-2024 Phosphate [Mass/Vol] Phosphate [Mass/volume] in Serum or Plasma 2.5-4.5 [facility] Phosphoruson 04-25-2024 Phosphate [Mass/Vol] 3.1 mg/dL Normal 2.5-4.5 [facility] Comment on above: Performed By: #### P HOS, BMP, MG #### [facility] [address] Potassium [Moles/volume] in Serum or PlasmaOrdered By: Fransisco Benavides on 04-25-2024 Potassium [Moles/Vol] Potassium [Moles/volume] in Serum or Plasma 3.5-5.1 [facility] Serum or plasma anion gap de terminationOrdered By: Fransisco Benavides on 04-25-2024 Anion gap [Moles/Vol] Serum or plasma anion gap determination 6.0-15.0 [facility] Sodium [Moles/volume] in Ser um or PlasmaOrdered By: Fransisco Benavides on 04-25-2024 Sodium [Moles/Vol] Sodium [Moles/volume] in Serum or Plasma 136-145 [facility] Urea nitrogen [Mass/volume] in Serum or PlasmaOrdered By: Fransisco Benavides on 04-25-2024 Urea nitrogen [Mass/Vol] Urea nitrogen [Mass/volume] in Serum or Plasma 7-25 [facility] Ambulatory Visit Summaryon 1 04-30-2023 Ambulatory Visit Summary Ambulatory Visit Summary LJ DOLL :1955 Visit Date:02/29/2024 Ambulatory Visit Instructions Your Diagnosis Chronic kidney disease (CKD), stage IV (severe), Chronic kidney disease, stage 4 (severe) DM type 2 causing CKD stage 4 RA (rheumatoid arthritis) BMI 35.0-35.9,adult Exogenous obesity Nonsmoker Your Care Team Attending Physician - Arley Keller MD Primary Care Physician - Ross MD, Arley E. This Is Your Medications List [facility] Prescription (CPAP supplies - Mask, tubing, connectors) [...] SIMENTAL, Randolph De Souza Where: [facility] [place] Wednesday 9:15 AM EDT With: Arley Keller MD Where: [address] [address]- Wednesday 1:00 PM EDT With: Where: [address] [address]- Medications What How Much When [...] dislocation of shoulder BMI 34.0-34.9,adult CAD in belkofski artery Carotid occlusion, left Chronic kidney disease [...] RA (rh (more content not included)... Normal [facility] Family Medicine Office/Clini c Noteon 02-29-2024 Family Medicine Office/Clinic Note Family Medicine Office/Clinic Note [facility] Staff Lj is a 68 year old [...] which she underwent a sleep study at [facility] overseen by Dr. Newsome. The exact date [...] monitoring of renal function. Ordered: A1c POC 64735 Body Mass Index (BMI) documented 3008F Current [...] to ensure diabetic control. Ordered: A1c POC 49584 Body Mass Index (BMI) documented 3008F Current [...] and response to treatment. Ordered: A1c POC 55382 Body Mass Index (BMI) documented 3008F Current tobacco non-user 1036F Depression Screening Negative 3352F Influenza immunization administered or previously received 4274F Most recent diastolic blood pressure 80-89 mm Hg 3079F Patient screen for fall risk: no falls in last y (more content not included)... Normal [facility] Comment on above: Result Comment: Elec tronically Signed By: Krishna SIMENTAL, Arley Heredia\.br\Date and Time Signed: 02/29/24 10:44 EST .Interpretation:on HCV Ab IA Ql Comment Invalid Interpretation Code [facility] Comment on above: Result Comment: Not infected with HCV unless early or acute infection is suspected (which may be delayed in an immunocompromised individual), or other evidence exists to indicate HCV infection. Performed at: [facility] [place] [id number] [place], [place] [id number] PhD Micah Wilson Performed By: #### 2 [id number] #### [facility] [address] [place] [address] HCV Antibody RFX to [facility] [place] 12-23-2023 HCV IgG IA Ql Non-Reactive Invalid Interpretation Code Non Reactive [facility] Comment on above: Result Comment: Perf ormed at: [facility] [address] [id number] PhD Micah Wilson Performed By: #### 2 [id number] #### [facility] [address] [place] [address] Ambulatory Visit Summaryon 0 12-16-2023 Ambulatory Visit Summary Ambulatory Visit Summary DEMETRILJ Domingo :1955 Visit Date:12/16/2023 Ambulatory Visit Instructions Your [...] Your Care Team Attending Physician - Micaela Beltrná Primary Care Physician - Arley Keller MD [facility] (CPAP supplies - Mask, tubing, connectors) [...] Appointments Wednesday 11:20 AM EDT With: Where: [address] [address]- Wednesday 9:15 AM EST With: Arley Keller MD Where: [address] [address]- Wednesday 1:00 PM EDT With: Where: [facility] [address] [place] [address]- You Need to Complete the Following Beta [...] breast cancer, pp_set_radiology_sub specialty, Required & Missing, [facility] Medications What How Much When Why Instructions [...] (Reclast) Int (more content not included)... Normal [facility] Family Medicine Office/Clini c Noteon 12-16-2023 Family [...] of clutter to prevent tripping and/or falling. [place] Advance Directives reviewed. Documents scanned into chart. [...] as directed. 5. 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 Normal [facility] Comment on above: Result Comment: Elec tronically Signed By: RICKY VALDIVIA CNP\.br\Date and Time Signed: 12/16/23 16:18 EDT\.br\Electronically Co-Signed By: Ling Garber\.br\Date and Time Co-Signed: 12/16/23 16:03 EDT Office Visiton 11-08-2023 Follow-up visit [id number] Lj Doll 1955 F Date Provider Department Center 11/08/2023 Kai-RODOLFO ROBERTS CARD [facility] Family History Problem Relation Age of Onset Coronary artery disease Mother Coronary artery disease Father Brain cancer Brother Family Status - Relation Status Age at Mother Father Brother Level of Service:23759 [place] OFFICE/OUTPATIENT ESTABLISHED LOW MDM 20 MIN Normal [facility] - Clinical Noteon Retail - Clinical Note [id number] 1.00TIFF [facility] Consultation Noteon 09-17-19 Consultation Note [id number] #1.00TIFF [facility] Ambulatory Visit Summaryon 0 08-31-2023 [...] Appointments Wednesday 9:30 AM EDT With: Where: [facility] Normal [address] [place], [place] [address]- \.br\ Medications\.br\ What How Much When Why [...] Anemia\.br\ Anterior dislocation of shoulder\.br\ CAD in belkofski artery\.br\ Carotid occlusion, left\.br\ Chronic kidney disease [...] usually interpreted in the same way for [facility] CBC w/ Auto Diffon 4 Basophils/100 WBC (Bld) 0.7 % Normal 0.0-2.0 [facility] Comment on above: Performed By: #### 2 [id number] #### [facility] [address] [place] [address] Basophils/Leukocytes Auto (Bld) [Pure # fraction] 0.1 E9/L Normal 0.0-0.2 [facility] Comment on above: Performed By: #### 2 [id number] #### [facility] [address] [place] [address] Eosinophils (Bld) [#/Vol] 0.3 E9/L Normal 0.0-0.5 [facility] Comment on above: Performed By: #### 2 [id number] #### [facility] [address] [place] [address] Eosinophils/100 WBC (Bld) 4.3 % Normal 0.0-8.0 [facility] Comment on above: Performed By: #### 2 [id number] #### [facility] [address] [place] [address] Erythrocyte distribution width (RBC) [Ratio] 13.5 % Normal 10.9-14.2 [facility] Comment on above: Performed By: #### 2 [id number] #### [facility] [address] [place] [address] Hematocrit (Bld) [Volume fraction] 35.6 % Normal 34.0-46.0 [facility] Comment on above: Performed By: #### 2 [id number] #### [facility] [address] [place] [address] Hemoglobin (Bld) [Mass/Vol] 11.7 g/dL Low 12.0-16.0 [facility] Comment on above: Performed By: #### 2 [id number] #### [facility] [address] [place] [address] Lymphocytes (Bld) [#/Vol] 2.4 E9/L Normal 1.0-4.0 [facility] Comment on above: Performed By: #### 2 525141 #### [facility] [address] [place] [address] Lymphocytes/100 WBC (Bld) 32.9 % Normal 14.0-50.0 [facility] Comment on above: Performed By: #### 2 [id number] #### [facility] [address] [place] [address] MCH (RBC) [Entitic mass] 28.4 pg Normal 27.0-34.0 [facility] Comment on above: Performed By: #### 2 138263 #### [facility] [address] [place] [address] MCHC (RBC) [Mass/Vol] 32.8 g/dL Normal 31.4-36.0 [facility] Comment on above: Performed By: #### 2 734776 #### [facility] [address] [place] [address] MCV (RBC) [Entitic vol] 86.7 fL Normal 80.0-100.0 [facility] Comment on above: Performed By: #### 2 294353 #### [facility] [address] [place] [address] Monocytes (Bld) [#/Vol] 0.6 E9/L Normal 0.2-1.0 [facility] Comment on above: Performed By: #### 2 [id number] #### [facility] [address] [place] [address] Neutrophils (Bld) [#/Vol] 4.0 E9/L Normal 2.0-7.5 [facility] Comment on above: Performed By: #### 2 915115 #### [facility] [address] [place] [address] Neutrophils/100 WBC (Bld) 53.8 % Normal 36.0-75.0 [facility] Comment on above: Performed By: #### 2 616725 #### [facility] [address] [place] [address] Platelet mean volume (Bld) [Entitic vol] 7.9 fL Normal 6.4-10.8 [facility] Comment on above: Performed By: #### 2 080985 #### [facility] Laboratory [address] [place] [address] Platelets (Bld) [#/Vol] 279.0 E9/L Normal 150.0-500.0 [facility] Comment on above: Performed By: #### 2 [id number] #### [facility] Laboratory [address] [place] [address] RBC (Bld) [#/Vol] 4.1 E12/L Low 4.3-5.9 [facility] Comment on above: Performed By: #### 2 [id number] #### [facility] Laboratory [address] [place] [address] WBC corrected for nucl RBC Auto (Bld) [#/Vol] 7.4 E9/L Normal 4.0-11.0 [facility] Comment on above: Performed By: #### 2 [id number] #### [facility] Laboratory [address] [place] [address] CHEMISTRYOrdered By: SYSTEM SYSTEM on 08-31-2023 Albumin [...] - 20 Remisol Chem CHEMISTRYOrdered By: Cam Sorto ertolasio on 08-31-2023 HbA1c (Bld) [Mass fraction] 6.8 % High <=5.9% [facility] ChemAutoSS CMPon 08-31-2023 Albumin [Mass/Vol] 4.1 g/dL Normal 3.3-5.0 [facility] Comment on above: Performed By: #### 2 [id number] #### [facility] Laboratory [address] [place] [address] Albumin/Globulin (S) [Mass conc ratio] 1.4 Normal 1.1-2.2 [facility] Comment on above: Performed By: #### 2 [id number] #### [facility] Laboratory [address] [place] [address] ALP [Catalytic activity/Vol] 79 Int._Unit/L Normal 21-98 [facility] Comment on above: Performed By: #### 2 [id number] #### [facility] Laboratory [address] [place] [address] ALT No additional P-5'-P [Catalytic activity/Vol] 26 Int._Unit/L Normal 6-46 [facility] Comment on above: Performed By: #### 2 585015 #### [facility] Laboratory [address] [place] [address] Anion gap [Moles/Vol] 10 mmol/L Normal 6-16 [facility] Comment on above: Performed By: #### 2 [id number] #### [facility] Laboratory [address] [place] [address] AST [Catalytic activity/Vol] 23 Int._Unit/L Normal 5-43 [facility] Comment on above: Performed By: #### 2 [id number] #### [facility] Laboratory [address] [place] [address] Bilirubin [Mass/Vol] 0.4 mg/dL Normal 0.0-1.[address] [facility] Comment on above: Performed By: #### 2 157783 #### [facility] Laboratory [address] [place] [address] Calcium [Mass/Vol] 8.8 mg/dL Low 8.9-11.1 [facility] Comment on above: Performed By: #### 2 070887 #### [facility] Laboratory [address] [place] [address] Chloride [Moles/Vol] 107 mmol/L Normal 101-[address] [facility] Comment on above: Performed By: #### 2 479046 #### [facility] Laboratory [address] [place] [address] CO2 [Moles/Vol] 27 mmol/L Normal 21-31 [facility] Comment on above: Performed By: #### 2 809121 #### [facility] Laboratory [address] [place] [address] Creatinine [Mass/Vol] 1.0 mg/dL Normal 0.5-1.3 [facility] Comment on above: Performed By: #### 2 325662 #### [facility] Laboratory [address] [place] [address] Globulin (S) [Mass/Vol] 3.0 g/dL Normal 1.4-4.0 [facility] Comment on above: Performed By: #### 2 058805 #### [facility] Laboratory [address] [place] [address] Glucose [Mass/Vol] 170 mg/dL Normal 55-199 [facility] Comment on above: Performed By: #### 2 841770 #### [facility] Laboratory [address] [place] [address] Potassium [Moles/Vol] 4.2 mmol/L Normal 3.5-5.3 [facility] Comment on above: Performed By: #### 2 580768 #### [facility] Laboratory [address] [place] [address] Protein [Mass/Vol] 7.1 g/dL Normal 6.0-7.8 [facility] Comment on above: Performed By: #### 2 731654 #### [facility] Laboratory [address] [place] [address] Sodium [Moles/Vol] 140 mmol/L Normal 135-145 [facility] Comment on above: Performed By: #### 2 135041 #### [facility] Laboratory [address] [place] [address] Urea nitrogen [Mass/Vol] 19 mg/dL Normal 5-21 [facility] Comment on above: Performed By: #### 2 343734 #### [facility] Laboratory [address] [place] [address] Urea nitrogen/Creatinine [Mass ratio] 19 No Units Normal 10-20 [facility] Comment on above: Performed By: #### 2 970039 #### [facility] Laboratory [address] [place] [address] Family Medicine Office/Clini c Noteon 08-31-2023 Family [...] would like to atkins to [place] in [place] Needs to know when last testing was [...] 3078F Patient (more content not included)... Normal [facility] Comment on above: Result Comment: Elec tronically Signed By: Krishna SIMENTAL, Arley Martinez.br\Date and Time Signed: 08/31/23 09:43 EDT HEMATOLOGYOrdered [...] Normal 4.0 - 11.0 E9/L Remisol Heme Lipid Panelon 08-31-2023 Cholesterol [Mass/Vol] 156 mg/dL Normal 120-200 [facility] Comment on above: Performed By: #### 2 [id number] #### [facility] Laboratory [address] [place] [address] Cholesterol in HDL [Mass/Vol] 60 mg/dL Invalid Interpretation Code [facility] Comment on above: Result Comment: '>= 60 LOW RISK' '<= 40 HIGH RISK' Performed By: #### 2 [id number] #### [facility] Laboratory [address] [place] [address] Cholesterol in LDL [Mass/Vol] 78 mg/dL Normal <=129 [facility] Comment on above: Performed By: #### 2 458761 #### [facility] Laboratory [address] [place] [address] Cholesterol in VLDL [Mass/Vol] 22 mg/dL Normal 7-40 [facility] Comment on above: Performed By: #### 2 461063 #### [facility] Laboratory [address] [place] [address] Triglyceride [Mass/Vol] 108 mg/dL Normal <=149 [facility] Comment on above: Performed By: #### 2 708103 #### [facility] Laboratory [address] [place] [address] Patient Educationon 08-31-19 Patient Education Nutrition BMI [...] for Disease Control and Prevention: www.cdc.gov ? [place] [employer]: www.heart.org ? National Heart, Lung, and Blood [place]: www.nhlbi.nih.gov Summary ? Body mass index (BMI) [...] provider. Document Revised: 12/13/2019 Document Reviewed: 10/20/2019 [employer] Patient Education ? 2022 [employer] Normal [facility] eGFRon 08-31-2023 eGFR 60 mL/min/1.73 m2 Normal >=59 [facility] Comment on above: Order Comment: Order added by Discern Expert. Performed By: #### 1 [id number] #### [facility] Laboratory [address] [place] [address] Consultation Noteon 08-25-19 Consultation Note [id number] #1.00TIFF Brandon [facility] Ambulatory Visit Summaryon 0 07-09-2023 [...] AM EDT With: Arley Keller MD Where: [facility] Family [facility] Normal [address] [place] [address]- \.br\ Medications\.br\ What How Much When Instructions\.br\ [...] Anemia\.br\ Anterior dislocation of shoulder\.br\ CAD in belkofski artery\.br\ Carotid occlusion, left\.br\ Chronic kidney disease [...] qPM, # 30 tab(s), Refills(s) 0, Pharmacy: [facility]/pharmacy #[id number], 160, cm, 07/09/23 10:50:00 [...] day(s), # 21 cap(s), Refills(s) 0, Pharmacy: [facility]/pharmacy #[id number], 160, cm, 07/09/23 10:50:00 EDT, Height/Length Dosing, 87.6, kg, 07/09/23 10:50:00 EDT, Weight Dosing montelukast, 10 mg = 1 tab(s), Oral, qPM, # 30 tab(s), Refills(s) 0, Pharmacy: [facility]/pharmacy #[id number], 160, cm, 07/09/23 10:50:00 [...] qualifying data available Patient Education Allergies, Adult, Vaip-rz-Hied Problem List/Past Medical History Ongoing Anemia Anterior dislocation of shoulder CAD in belkofski artery Carotid occlusion, left Chronic kidney disease (CKD), stage IV (severe) Diabetic neuropathy Dislocation of joint of upper limb DM type 2 causing CKD stage 4 Dyslipidemia Dyspnea Fall Gastroesophageal reflux disease Hyperlipidemia Immunodeficiency due to drugs Liver enzymes level above reference range Long-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 Major depress (more content not included)... Normal [facility] Comment on above: Result Comment: Elec troelanaally Signed By: RICKY VALDIVIA CNP.deric\Date and Time Signed: 07/09/23 11:30 EDT Patient [...] at home: Medicines ? Take or apply tpci-gtb-maicgzj and prescription medicines only as told by [...] the hospital. Summary ? Take or apply hwwm-ybl-mxefrve and prescription medicines only as told by [...] provider. Document Revised: 01/31/2020 Document Reviewed: 01/31/2020 [employer] Patient Education ? 2022 [employer] Normal [facility] Consultation Noteon 06-29-19 Consultation Note [id number] #1.00TIFF [facility] Discharge Note - PTon 2023 Discharge Note - PT [id number] #1.00TIFF [facility] PT - Progress Noteson 2023 PT - Progress Notes [id number] #1.00TIFF [facility] Consultation Noteon 05-17-19 Consultation Note [id number] #1.00TIFF [facility] XR Shoulder - right 2 Viewso [...] saved to the permanent record in the [place] office. [facility] XR Shoulder - right 2 Viewso n 05-12-2023 Radiology Study observation (narrative) [facility] Consent for Treatmenton Consent for Treatment [id number] #1.00TIFF Normal [facility] US Renalon 05-11-2023 US Renal [...] Ross MD, V. Transcribed by: TIAN Technologist: [facility] Physician Orderon 05-05-2023 Physician Order [id number] #1.00TIFF [facility] Consultation Noteon 04-28-19 Consultation Note [id number] #1.00TIFF [facility] Calcium [Mass/volume] in Ser um or PlasmaOrdered By: Fransisco Benavides on 03-16-2023 Calcium [Mass/Vol] 9.2 mg/dL 8.6-10.3 [facility] Creatinine [Mass/volume] in Serum or PlasmaOrdered By: Fransisco Benavides on 03-16-2023 Creatinine [Mass/Vol] 1.04 mg/dL 0.60-1.20 [facility] Magnesium [Mass/volume] in S melvin or PlasmaOrdered By: Fransisco Benavides on 03-16-2023 Magnesium [Mass/Vol] 1.5 mg/dL 1.9-2.7 [facility] No Panel InformationOrdered By: Fransisco Benavides on 03-16-2023 Estimated GFR (CKD-EPI) 58.180 mL/Min [facility] Creatinine Clearance (Chem N/A [facility] Phosphate [Mass/volume] in S melvin or PlasmaOrdered By: Fransisco Benavides on 03-16-2023 Phosphate [Mass/Vol] 3.6 mg/dL 2.5-4.5 [facility] Urea nitrogen [Mass/volume] in Serum or PlasmaOrdered By: Fransisco Benavides on 03-16-2023 Urea nitrogen [Mass/Vol] 25 mg/dL 10-27 [facility] PROTEIN ELECTROPHERESISon Albumin [Mass/Vol] 3.8 g/dL Normal 2.9-4.4 [facility] Comment on above: Performed By: #### P RTELEC #### [facility] [address] [address] [address] Jennifer Atkins Albumin/Globulin [Mass ratio] 1.2 {ratio} Normal 0.7-1.7 [facility] Comment on above: Performed By: #### P RTELEC #### [facility] [address] [place] [address] Dr. Jennifer Atkins Izgds-1-Khshwtay 0.2 g/dL Normal 0.0-0.4 [facility] Comment on above: Performed By: #### P RTELEC #### [facility] [address] [place] [address] Dr. Jennifer Atkins Yznlg-9-Xydfhkvt 0.8 g/dL Normal 0.4-1.0 [facility] Comment on above: Performed By: #### P RTELEC #### [facility] [address] [place] [address] Dr. Jennifer Atkins Beta Globulin 1.1 g/dL Normal 0.7-1.3 [facility] Comment on above: Performed By: #### P RTELEC #### [facility] [address] [place] [address] Dr. Jennifer Atkins Gamma Globulin 0.9 g/dL Normal 0.4-1.8 [facility] Comment on above: Performed By: #### P RTELEC #### [facility] [address] [place] [address] Dr. Jennifer Atkins Globulin (S) [Mass/Vol] 3.1 g/dL Normal 2.2-3.9 [facility] Comment on above: Performed By: #### P RTELEC #### [facility] [address] [place] [address] Dr. Jennifer Atkins M-Jimob Not Observed Normal Not Observed [facility] Comment on above: Performed By: #### P RTELEC #### [facility] [address] [place] [address] Dr. Jennifer Atkins PDF . Normal [facility] Comment on above: Performed By: #### P RTELEC #### [facility] [address] [place] [address] Dr. Jennifer Atkins Please note: Comment Normal [facility] Comment on above: Result Comment: Prot ein electrophoresis scan will follow via computer, mail, or materials scheduler delivery. Performed By: #### P RTELEC #### [facility] [address] [place] [address] Dr. Jennifer Atkins Protein [Mass/Vol] 6.9 g/dL Normal 6.0-8.5 [facility] Comment on above: Performed By: #### P RTELEC #### [facility] [address] [place] [address] Dr. Jennifer Atkins TSHon 05-21-2022 TSH 1.479 uIU/mL Normal 0.358-3.740 [facility] Comment on above: Performed By: #### T SH #### [facility] [address] [place] [address] Dr. Jennifer Atkins VIT B12 AND FOLATEon 023 Cobalamin (Vitamin B12) [Mass/Vol] 738.0 pg/mL Normal 193.0-986.0 [facility] Comment on above: Performed By: #### B 12FOL #### [facility] [address] [place] [address] Dr. Jennifer Atkins FOLATE 25.70 ng/mL Normal 8.60-58.90 [facility] Comment on above: Performed By: #### B 12FOL #### [facility] [address] [place] [address] Dr. Jennifer Atkins ENHANCED LIVER FIBROSIS TEST on 01-28-2022 ELF (TM) Score 10.76 Critically high <9.80 [facility] Comment on above: Result Comment: ELF( [...] Oct;73(1):26-39. Performed By: #### E LF #### [facility] [address] [place] [address] Dr. Jennifer Atkins Established Visit (Gastroent erology)on 12-23-2021 Established Visit (Gastroenterology) Diagnoses/Problems Assessed NAFLD (nonalcoholic fatty liver disease) (571.8) (K76.0) Orders NAFLD (nonalcoholic fatty liver disease) MISCELLANEOUS TEST; Status:Active; Requested for:23Dec2021; Perform:Lab Services - Lab To Draw (Non-Blood Test); Order Comments:ENHANCED LIVER FIBROSIS (ELF) TEST: 005449 CPT: 0014M LABCORPSERUM 2.5 ML, MINIMUM 1 ML. GEL-BARRIER TUBE OR RED-TOP TUBEREFRIGERATE; Due:[id number];Ordere d; For:NAFLD (nonalcoholic fatty liver disease); Ordered By:Kenroy Low; Patient Discussion/Summary If you have any questions, do not hesitate to call the Hepatology Nurse Coordinator at [phone]. PLEASE CALL IN 2022 FOR ORDERS. [X ] LABS: ELF TEST. HAVE RESULTS FAXED TO OUR OFFICE, [X ] FIBROSCAN ONCE A YEAR (Specialized test that measures scarring and fat in the liver) - Call to schedule: [facility] and [place]: [phone]. - [place]: [phone] [X ] FOLLOW UP: IN 1 YEAR -Call to schedule [phone], Option 1 Provider Impressions we will check [...] DIRECTED. Lantus SoloStar 100 UNIT/ML Subcutaneous Solution Pen-[id number] units BID Metoprolol Tartrate 25 MG Oral TabletTAKE 1 TABLET TWICE DAILY. Multivitamins TABSTAKE 1 TABLET DAILY. Plaquenil 200 MG Oral TabletTAKE 1 TABLET TWICE DAILY WITH FOOD. Pro (more content not included)... Normal [facility] ALBUMIN, URINE SPOTon 2021 ALBUMIN,URINE <7.0 Normal Not Established [facility] Comment on above: Performed By: #### A LB #### [address] [id number] ALBUMIN/CREAT RATIO SEE COMMENT Normal 0.0 - 30.0 [facility] Comment on above: Result Comment: One or more analytes used in this calculation is outside of the analytical measurement range. Calculation cannot be performed. Performed By: #### A LBSP #### [address] [id number] CREATININE,URINE 20.2 mg/dL Normal 20.0 - 320.0 [facility] Comment on above: Performed By: #### A LBSP #### [address] [id number] C PEPTIDEon 12-02-2021 C PEPTIDE 0.8 ng/mL Normal 0.7 - 3.9 [facility] Comment on above: Performed By: #### C PEPT #### [facility] [address] [place] [address] C Reactive Protein, Serumon 12-02-2021 CRP [Mass/Vol] mg/L [facility] 101 Work Phone: Comment on above: REF VALUE< 1.00 C-REACTIVE PROTEINon 022 CRP [Mass/Vol] mg/L Normal [facility] Comment on above: Result Comment: REF VALUE < 1.00 Performed By: #### C RP #### [address] [id number] CBC AND DIFFERENTIALon 12-02 % AUTOMATED IMMATURE GRAN 0.2 % Normal 0.0 - 0.9 [facility] Comment on above: Result Comment: Melyssa ture Granulocyte Count (IG) includes promyelocytes, myelocytes and metamyelocytes but does not include bands. Percent differential counts (%) should be interpreted in the context of the absolute cell counts (cells/L). Performed By: #### C BCDF #### [address] [id number] Basophils (Bld) [#/Vol] 0.04 10*3/uL Normal 0.00 - 0.10 [facility] Comment on above: Performed By: #### C BCDF #### [address] [id number] Basophils/100 WBC (Bld) 0.6 % Normal 0.0 - 2.0 [facility] Comment on above: Performed By: #### C BCDF #### [address] [id number] Eosinophils (Bld) [#/Vol] 0.22 10*3/uL Normal 0.00 - 0.70 [facility] Comment on above: Performed By: #### C BCDF #### [address] [id number] Eosinophils/100 WBC (Bld) 3.5 % Normal 0.0 - 6.0 [facility] Comment on above: Performed By: #### C BCDF #### [address] [id number] Erythrocyte distribution width (RBC) [Ratio] 13.9 % Normal 11.5 - 14.5 [facility] Comment on above: Performed By: #### C BCDF #### [address] [id number] Hematocrit (Bld) [Volume fraction] 36.9 % Normal 36.0 - 46.0 [facility] Comment on above: Performed By: #### C BCDF #### [address] [id number] Hemoglobin (Bld) [Mass/Vol] 11.6 g/dL Low 12.0 - 16.0 [facility] Comment on above: Performed By: #### C BCDF #### [address] [id number] Lymphocytes (Bld) [#/Vol] 2.67 10*3/uL Normal 1.20 - 4.80 [facility] Comment on above: Performed By: #### C BCDF #### [address] [id number] Lymphocytes/100 WBC (Bld) 42.4 % Normal 13.0 - 44.0 [facility] Comment on above: Performed By: #### C BCDF #### [address] [id number] MCHC (RBC) [Mass/Vol] 31.4 g/dL Low 32.0 - 36.0 [facility] Comment on above: Performed By: #### C BCDF #### [address] [id number] MCV (RBC) [Entitic vol] 93 fL Normal 80 - 100 [facility] Comment on above: Performed By: #### C BCDF #### [address] [id number] Monocytes (Bld) [#/Vol] 0.70 10*3/uL Normal 0.10 - 1.00 [facility] Comment on above: Performed By: #### C BCDF #### [address] [id number] Monocytes/100 WBC (Bld) 11.1 % Normal 2.0 - 10.0 [facility] Comment on above: Performed By: #### C BCDF #### [address] [id number] Neutrophils (Bld) [#/Vol] 2.65 10*3/uL Normal 1.20 - 7.70 [facility] Comment on above: Performed By: #### C BCDF #### [address] [id number] Neutrophils/100 WBC (Bld) 42.2 % Normal 40.0 - 80.0 [facility] Comment on above: Performed By: #### C BCDF #### [address] [id number] Platelets (Bld) [#/Vol] 253 10*3/uL Normal 150 - 450 [facility] Comment on above: Performed By: #### C BCDF #### [address] [id number] RBC 3.96 x10E12/L Low 4.00 - 5.20 [facility] Comment on above: Performed By: #### C BCDF #### [facility] [address] [place], [place] [id number] WBC (Bld) [#/Vol] 6.3 10*3/uL Normal 4.4 - 11.3 [facility] Comment on above: Performed By: #### C BCDF #### [facility] [address] [place], [place] [id number] Complete Blood Count + Diffe rentialon 12-02-2021 Basophils/100 WBC (Bld) 0.6 % 0.0 - 2.0 [facility] 101 Work Phone: Erythrocyte distribution width (RBC) [Ratio] 13.9 % See Below [facility] [facility] Work Phone: Comment on above: Reference Range: 11. 5 - 14.5 Hematocrit (Bld) [Volume fraction] 36.9 % See Below [facility] [facility] Work Phone: Comment on above: Reference Range: 36. 0 - 46.0 Hemoglobin (Bld) [Mass/Vol] 11.6 g/dL below low threshold See Below [facility] [facility] Work Phone: Comment on above: Reference Range: 12. 0 - 16.0 Lymphocytes/100 WBC (Bld) 42.4 % See Below [facility] [facility] Work Phone: Comment on above: Reference Range: 13. 0 - 44.0 MCHC (RBC) [Mass/Vol] 31.4 g/dL below low threshold See Below [facility] [facility] Work Phone: Comment on above: Reference Range: 32. 0 - 36.0 MCV (RBC) [Entitic vol] 93 fL 80 - 100 [facility] [facility] Work Phone: Monocytes/100 WBC (Bld) 11.1 % 2.0 - 10.0 [facility] [facility] Work Phone: Neutrophils/100 WBC (Bld) 42.2 % See Below [facility] [facility] Work Phone: Comment on above: Reference Range: 40. 0 - 80.0 Platelets (Bld) [#/Vol] 253 10*3/uL 150 - 450 [facility] [facility] Work Phone: RBC (Bld) [#/Vol] 3.96 {x10E12/L} below low threshold See Below [facility] [facility] Work Phone: Comment on above: Reference Range: 4.0 0 - 5.20 WBC (Bld) [#/Vol] 6.3 10*3/uL 4.4 - 11.3 [facility] 101 Work Phone: Complete Blood Count + Differential 0.04 {x10E9/L} See Below [facility] [facility] Work Phone: Comment on above: Reference Range: 0.0 0 - 0.10 Complete Blood Count + Differential 0.22 {x10E9/L} See Below [facility] [facility] Work Phone: Comment on above: Reference Range: 0.0 0 - 0.70 Complete Blood Count + Differential 0.70 {x10E9/L} See Below [facility] [facility] Work Phone: Comment on above: Reference Range: 0.1 0 - 1.00 Complete Blood Count + Differential 2.67 {x10E9/L} See Below [facility] [facility] Work Phone: Comment on above: Reference Range: 1.2 0 - 4.80 Complete Blood Count + Differential 2.65 {x10E9/L} See Below [facility] [facility] Work Phone: Comment on above: Reference Range: 1.2 0 - 7.70 Complete Blood Count + Differential 3.5 % 0.0 - 6.0 [facility] [facility] Work Phone: Complete Blood Count + Differential 0.2 % 0.0 - 0.9 [facility] [facility] Work Phone: Comment on above: Immature Granulocyte Count (IG) includes promyelocytes, myelocytes and metamyelocytes but does not include bands. Percent differential counts (%) should be interpreted in the context of the absolute cell counts (cells/L). HEPATIC FUNCTION PANELon ALP [Catalytic activity/Vol] 63 U/L Normal 33 - 136 [facility] Comment on above: Performed By: #### H EPFP #### [address] [id number] ALT [Catalytic activity/Vol] 30 U/L Normal 7 - 45 [facility] Comment on above: Result Comment: Shannon ents treated with Sulfasalazine may generate falsely decreased results for ALT. Performed By: #### H EPFP #### [address] [id number] AST [Catalytic activity/Vol] 31 U/L Normal 9 - 39 [facility] Comment on above: Performed By: #### H EPFP #### [address] [id number] Bilirubin [Mass/Vol] 0.4 mg/dL Normal 0.0 - 1.2 [facility] Comment on above: Performed By: #### H EPFP #### [address] [id number] Bilirubin.indirect [Mass/Vol] 0.1 mg/dL Normal 0.0 - 0.3 [facility] Comment on above: Performed By: #### H EPFP #### [address] [id number] Protein [Mass/Vol] 7.5 g/dL Normal 6.4 - 8.2 [facility] Comment on above: Performed By: #### H EPFP #### [address] [id number] Hepatic Function Panelon Albumin BCP dye [Mass/Vol] 4.5 g/dL 3.4 - 5.0 [facility] [facility] Work Phone: ALP [Catalytic activity/Vol] 63 U/L 33 - 136 [facility] Work Phone: ALT With P-5'-P [Catalytic activity/Vol] 30 U/L 7 - 45 [facility] Work Phone: Comment on above: Patients treated wit h Sulfasalazine may generate falsely decreased results for ALT. AST With P-5'-P [Catalytic activity/Vol] 31 U/L 9 - 39 [facility] Work Phone: Bilirubin [Mass/Vol] 0.4 mg/dL 0.0 - 1.2 [facility] Work Phone: Bilirubin.direct [Mass/Vol] 0.1 mg/dL 0.0 - 0.3 [facility] Work Phone: Protein [Mass/Vol] 7.5 g/dL 6.4 - 8.2 [facility] Work Phone: LIPID PANEL (CORONARY RISK 2 )on 12-02-2021 Cholesterol [Mass/Vol] 171 mg/dL Normal 0 - 199 [facility] Comment on above: Result Comment: . [...] dosing. Performed By: #### L IPID #### [address] [id number] Cholesterol in HDL [Mass/Vol] 73.0 mg/dL Normal [facility] Comment on above: Result Comment: . AGE VERY LOW LOW NORMAL HIGH 0-19 Y < 35 < 40 40-45 ---- 20-24 Y ---- < 40 >45 ---- >24 Y ---- < 40 40-60 >60 . Performed By: #### L IPID #### [address] [id number] Cholesterol in LDL [Mass/Vol] 78 mg/dL Normal 0 - 99 [facility] Comment on above: Result Comment: . NEAR BORD AGE DESIRABLE OPTIMAL HIGH HIGH VERY HIGH 0-19 Y 0 - 109 --- 110-129 >/= 130 ---- 20-24 Y 0 - 119 --- 120-159 >/= 160 ---- >24 Y 0 - 99 100-129 130-159 160-189 >/=190 . Performed By: #### L IPID #### [address] [id number] Cholesterol in VLDL [Mass/Vol] 20 mg/dL Normal 0 - 40 [facility] Comment on above: Performed By: #### L IPID #### [address] [id number] Cholesterol.total/Ch olesterol in HDL [Mass ratio] 2.3 {ratio} Normal [facility] Comment on above: Result Comment: REF VALUES DESIRABLE < 3.4 HIGH RISK > 5.0 Performed By: #### L IPID #### [address] [id number] Triglyceride [Mass/Vol] 101 mg/dL Normal 0 - 149 [facility] Comment on above: Result Comment: . [...] dosing. Performed By: #### L IPID #### [address] [id number] Laboratory - Chemistry and C hemistry - challengeon 12-02-2021 Albumin Ql (U) <7.0 See Below [facility] Work Phone: Comment on above: Reference Range: Not Established Albumin/Creatinine DL <= 20 mg/L (U) [Mass ratio] SEE COMMENT 0.0 - 30.0 [facility] Work Phone: Comment on above: One or more analytes used in this calculation is outside of the analytical measurement range.Calculation cannot be performed. Creatinine (U) [Mass/Vol] 20.2 mg/dL See Below [facility] Work Phone: Comment on above: Reference Range: 20. 0 - 320.0 Lipid Panelon 12-02-2021 Cholesterol [Mass/Vol] 171 mg/dL 0 - 199 [facility] Work Phone: Comment on above: . [...] Cholesterol in HDL [Mass/Vol] 73.0 mg/dL [facility] Work Phone: Comment on above: . AGE VERY LOW LOW N ORMAL HIGH 0-19 Y < 35 < 40 40-45 ---- 20- 24 Y ---- < 40 >45 ---- >24 Y ---- < 40 40-60 >60. Cholesterol in LDL [Mass/Vol] 78 mg/dL 0 - 99 [facility] Work Phone: Comment on above: . NEAR BORD AGE HEBERT RABLE OPTIMAL HIGH HIGH VERY HIGH 0-19 Y 0 - 109 --- 110-129 >/= 130 ---- 20-24 Y 0 - 119 --- 120-159 >/= 160 ---- >24 Y 0 - 99 100-129 130-159 160-189 >/=190. Cholesterol.total/Ch olesterol in HDL [Mass ratio] 2.3 {ratio} [facility] Work Phone: Comment on above: REF VALUESDESIRABLE < 3.4HIGH RISK > 5.0 Triglyceride [Mass/Vol] 101 mg/dL 0 - 149 [facility] Work Phone: Comment on above: . [...] Panel 20 mg/dL 0 - 40 [facility] Work Phone: Procedure (Gastroenterology) on 12-02-2021 [...] DIRECTED. Lantus SoloStar 100 UNIT/ML Subcutaneous Solution Pen-[id number] units BID Metoprolol Tartrate 25 MG Oral [...] Dec 02 2021 10:21AM EST (Author) Normal [facility] RENAL FUNCTION PANELon 12-02 Albumin [Mass/Vol] 4.5 g/dL Normal 3.4 - 5.0 [facility] Comment on above: Performed By: #### R ENAL #### [address], [place] [id number] Performed By: #### H EPFP #### [address] [id number] Anion gap [Moles/Vol] 13 mmol/L Normal 10 - 20 [facility] Comment on above: Performed By: #### R ENAL #### [address] [id number] Calcium [Mass/Vol] 9.3 mg/dL Normal 8.6 - 10.3 [facility] Comment on above: Performed By: #### R ENAL #### [address] [id number] Chloride [Moles/Vol] 103 mmol/L Normal 98 - 107 [facility] Comment on above: Performed By: #### R ENAL #### [address] [id number] Creatinine [Mass/Vol] 1.19 mg/dL High 0.50 - 1.05 [facility] Comment on above: Performed By: #### R ENAL #### [address] [id number] GFR/1.73 sq M.predicted among non-blacks MDRD (S/P/Bld) [Vol rate/Area] 50 mL/min/{1.73_m2} Abnormal >90 [facility] Comment on above: Result Comment: CALC ULATIONS OF ESTIMATED GFR ARE PERFORMED USING THE 2020 CKD-EPI STUDY REFIT EQUATION WITHOUT THE RACE VARIABLE FOR THE IDMS-TRACEABLE CREATININE METHODS. https://jasn.asnjournals.org/content/early//ASN.5129237 988 Performed By: #### R ENAL #### [address] [id number] Glucose [Mass/Vol] 64 mg/dL Low 74 - 99 [facility] Comment on above: Performed By: #### R ENAL #### [address] [id number] HCO3 (Bld) [Moles/Vol] 29 mmol/L Normal 21 - 32 [facility] Comment on above: Performed By: #### R ENAL #### [address] [id number] Phosphate [Mass/Vol] 3.4 mg/dL Normal 2.5 - 4.9 [facility] Comment on above: Result Comment: The performance characteristics of phosphorus testing in heparinized plasma have been validated by the individual laboratory site where testing is performed. Testing on heparinized plasma is not approved by the FDA; however, such approval is not necessary. Performed By: #### R ENAL #### [address] [id number] Potassium [Moles/Vol] 4.7 mmol/L Normal 3.5 - 5.3 [facility] Comment on above: Performed By: #### R ENAL #### [address] [id number] Sodium [Moles/Vol] 140 mmol/L Normal 136 - 145 [facility] Comment on above: Performed By: #### R ENAL #### [address] [id number] Urea nitrogen [Mass/Vol] 31 mg/dL High 6 - 23 [facility] Comment on above: Performed By: #### R ENAL #### [address] [id number] Renal Function Panelon 12-02 Anion gap [Moles/Vol] 13 mmol/L 10 - 20 [facility] Work Phone: Calcium [Mass/Vol] 9.3 mg/dL 8.6 - 10.3 [facility] Work Phone: Chloride [Moles/Vol] 103 mmol/L 98 - 107 [facility] Work Phone: CO2 [Moles/Vol] 29 mmol/L 21 - 32 [facility] Work Phone: Creatinine [Mass/Vol] 1.19 mg/dL above high threshold See Below [facility] Work Phone: Comment on above: Reference Range: 0.5 0 - 1.05 Glucose [Mass/Vol] 64 mg/dL below low threshold 74 - 99 [facility] Work Phone: Phosphate [Mass/Vol] 3.4 mg/dL 2.5 - 4.9 [facility] Work Phone: Comment on above: The performance juliana acteristics of phosphorus testing in heparinized plasma have been validated by the individual laboratory site where testing is performed. Testing on heparinized plasma is not approved by the FDA; however, such approval is not necessary. Potassium [Moles/Vol] 4.7 mmol/L 3.5 - 5.3 [facility] Work Phone: Sodium [Moles/Vol] 140 mmol/L 136 - 145 [facility] Work Phone: Urea nitrogen [Mass/Vol] 31 mg/dL above high threshold 6 - 23 [facility] Work Phone: Renal Function Panel 50 {mL/min/1.73m2} Abnormal >90 [facility] Work Phone: Comment on above: CALCULATIONS OF KELI MATED GFR ARE PERFORMED USING THE 2020 CKD-EPI STUDY REFIT EQUATION WITHOUT THE RACE VARIABLE FOR THE IDMS-TRACEABLE CREATININE METHODS.https://jasn.asnjournals.org/content//ASN .3333809269 SEDIMENTATION RATE, ERYTHROC YTEon 12-02-2021 SEDIMENTATION RATE, ERYTHROCYTE 31 mm/h High 0 - 30 [facility] Comment on above: Result Comment: Clemencia cramer note new reference ranges as of 08/11/2021. Ran on alternate instrument Reference Ranges: Males: 0-15 Females: 0-20 Children under 18: 0-10 Performed By: #### E SRWS #### [address] [id number] Sedimentation Rate, Erythroc yteon 12-02-2021 ESR (Bld) [Velocity] 31 mm/h above high threshold 0 - 30 [facility] Work Phone: Comment on above: Please note new refe rence ranges as of 08/11/2021.Ran on alternate instrumentReference Ranges: Males: 0-15 Females: 0-20 Children under 18: 0-10 VITAMIN D, 25-HYDROXYon 11-05 VITAMIN D, 25-HYDROXY 55 ng/mL Normal [facility] Comment on above: Result Comment: . DEFICIENCY: < 20 NG/ML INSUFFICIENCY: 20-29 NG/ML SUFFICIENCY: 30-100 NG/ML THIS ASSAY ACCURATELY QUANTIFIES THE SUM OF VITAMIN D3, 25-HYDROXY AND VIT D2,25-HYDROXY. Performed By: #### V TDOH #### [address] [id number] Vitamin D 25-Hydroxyon 12-02 25-hydroxyvitamin D3 [Mass/Vol] 55 ng/mL [facility] Work Phone: Comment on above: .DEFICIENCY: [...] d; For:NAFLD (nonalcoholic fatty liver disease); Ordered By:Matt Low Liver Ultrasound; Status:Hold For - Exact Date,Scheduling; Requested for:Approx ; Perform:In Office; Order Comments:FIBROSCAN; Due:[id number];Ordere d; For:NAFLD (nonalcoholic fatty liver disease); Ordered [...] 12-12-2020 HIPS BILATERAL 2 VWS WITH [facility] Department of Radiology [address] [place] [id number] Patient Name: LJ DOLL : 1955 Sex: F Age: Race: White Pt. Location: Patient Status: D Ordered Date: 12/12/2020 8:30:00 AM Completed Date: 12/12/2020 08:38 AM Requesting Provider: CHAGO WARREN Attending Provider: CHAGO WARREN Report Copy To: BREE AMBROSE Signs & Symptoms: Z96.642 Presence of left artificial hip joint History: [place] failed; scanned in RIS Comments: evaluate Exam: [...] report. Electronically signed: James Francisco. Transcribed by: [email or web address], User Resident: ZOLTAN CASTRO Electronically Signed by: JAMES FRANCISCO @ 12/13/2020 10:51 AM I personally read this/these film(s) with this resident Normal [facility] Comment on above: Order Comment: evalu ate HAND LEFT 3 [facility] 04-26-2020 HAND LEFT 3 S [facility] Department of Radiology [address] [place] [id number] Patient Name: LJ DOLL : 1955 Sex: F Age: Race: White Pt. Location: Patient Status: D Ordered Date: 04/26/2020 11:45:00 AM Completed Date: 04/26/2020 11:45 AM Requesting Provider: FRANCES BORRERO Attending Provider: Report Copy To: Signs & Symptoms: M25.532 Pain in left wrist I10 History: Comments: Evaluate Exam: HAND LEFT 3 S WRIST LEFT 3 VWS HAND LEFT 3 [...] arthritis. Electronically signed: James Francisco. Transcribed by: [email or web address], User Resident: Electronically Signed by: JAMES FRANCISCO @ 04/27/2020 01:21 PM Normal [facility] Comment on above: Order Comment: Evalu ate WRIST LEFT 3 VWSon WRIST LEFT 3 VWS [facility] Department of Radiology [address] [place] [phone] Patient Name: LJ DOLL : 1955 [...] arthritis. Electronically signed: James Francisco. Transcribed by: [email or web address], User Resident: Electronically Signed by: JAMES FRANCISCO @ 04/27/2020 01:21 PM Normal [facility] Comment on above: Order Comment: Evalu ate ABO/RH GROUP TESTon 10-23-19 ABO TYPE O Normal [facility] Comment on above: Performed By: #### V ERAB ####[address] [address] RH TYPE Positive Normal [facility] Comment on above: Performed By: #### V ERAB ####[address] [address] BASIC METABOLIC PANELon 10-04 Anion gap [Moles/Vol] 9 mmol/L Low 10 - 20 [facility] Comment on above: Performed By: #### B MP ####[address] [address] Calcium [Mass/Vol] 8.7 mg/dL Normal 8.6 - 10.3 [facility] Comment on above: Performed By: #### B MP ####[address] [address] Chloride [Moles/Vol] 110 mmol/L High 98 - 107 [facility] Comment on above: Performed By: #### B MP ####[address] [address] Creatinine [Mass/Vol] 0.94 mg/dL Normal 0.50 - 1.05 [facility] Comment on above: Performed By: #### B MP ####[address] [address] GFR- AM. 73 mL/min/1.73m2 Normal >60 [facility] Comment on above: Result Comment: CALC ULATIONS OF ESTIMATED GFR ARE PERFORMED USING THE MDRD STUDY EQUATION FOR THE IDMS-TRACEABLE CREATININE METHODS. CLIN CHEM 2007;53:766-72 Performed By: #### B MP ####[address] [address] GFR-NON AM. 60 mL/min/1.73m2 Abnormal >60 [facility] Comment on above: Performed By: #### B MP ####[address] [address] Glucose [Mass/Vol] 155 mg/dL High 74 - 99 [facility] Comment on above: Performed By: #### B MP ####[address] [address] HCO3 (Bld) [Moles/Vol] 24 mmol/L Normal 21 - 32 [facility] Comment on above: Performed By: #### B MP ####[address] [address] Potassium [Moles/Vol] 4.4 mmol/L Normal 3.5 - 5.3 [facility] Comment on above: Performed By: #### B MP ####[address] [address] Sodium [Moles/Vol] 139 mmol/L Normal 136 - 145 [facility] Comment on above: Performed By: #### B MP ####[address] [address] Urea nitrogen [Mass/Vol] 27 mg/dL High 6 - 23 [facility] Comment on above: Performed By: #### B MP ####[address] [address] CBCon 10-22-2018 Erythrocyte distribution width (RBC) [Ratio] 14.6 % High 11.5 - 14.5 [facility] Comment on above: Performed By: #### C BC ####[address] [address] Hematocrit (Bld) [Volume fraction] 24.8 % Low 36.0 - 46.0 [facility] Comment on above: Performed By: #### C BC ####[address] [address] Hemoglobin (Bld) [Mass/Vol] 7.4 g/dL Low 12.0 - 16.0 [facility] Comment on above: Performed By: #### C BC ####[address] [address] MCHC (RBC) [Mass/Vol] 29.8 g/dL Low 32.0 - 36.0 [facility] Comment on above: Performed By: #### C BC ####[address] [address] MCV (RBC) [Entitic vol] 92 fL Normal 80 - 100 [facility] Comment on above: Performed By: #### C BC ####[address] [address] Nucleated RBC/100 WBC (Bld) [Ratio] 0.0 /100 WBC Normal 0.0 - 0.0 [facility] Comment on above: Performed By: #### C BC ####[address] [address] Platelets (Bld) [#/Vol] 212 10*3/uL Normal 150 - 450 [facility] Comment on above: Performed By: #### C BC ####[address] [address] RBC (Bld) [#/Vol] 2.71 x10E12/L Low 4.00 - 5.20 [facility] Comment on above: Performed By: #### C BC ####[address] [address] WBC (Bld) [#/Vol] 7.2 10*3/uL Normal 4.4 - 11.3 [facility] Comment on above: Performed By: #### C BC ####[address] [id number] [facility] [place] [address] Discharge [id number] Discharge Profile2 Discharge Orders: Anticipated Discharge Date: Anticipated Discharge [id number] Problem List: Admitting Dx: Gastrointestinal hemorrhage with [...] normal per the patient. She presented to [facility] on September 20 for evaluation of syncopal [...] GI bleeding. Course: Patient was transferred to [facility] ICU and monitored. She didn't show any evidence of bleeding. No melena or hematochezia. Her vitals were stable so she was transferred out of ICU to [facility]. GI saw her there and she underwent EGD on 10/22/18. No bleeding was found. Hiatal hernia was noted. Patient's aspirin, plavix and celebrex were held and stopped at discharged. Since her coronary stent was placed in 2016, she likely doesn't need to be on plavix anymore. 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 Her [...] in1 week Follow-Up Appointment 02: Physician/Dept/Janna Rizzo chucking and sawing machine operator Call to Schedule in4 weeks Electronic Signatures: Jeffrey Crowell) (Signed 22-Oct-2018 12:24) Authored: Discharge Orders, Hospital Course (Home Care/Gold Form), Provider FINAL REVIEW of Orders, Appointments, Gold Form - Handbag Frames Inspector Summary Last Updated: 22-Oct-2018 12:24 by Jeffrey Crowell) Normal [facility] GLUCOSE-POCTon 10-22-2018 Glucose [Mass/Vol] 146 mg/dL High 74 - 99 [facility] Comment on above: Performed By: #### G BENNIE ####[place] [address] Glucose [Mass/Vol] 160 mg/dL High 74 - 99 [facility] Comment on above: Performed By: #### G BENNIE ####[address] [address] REQUEST-LEUKOREDUCED RED JE LSon 10-22-2018 REQUEST-LEUKOREDUCED RED CELLS ORDER RECD Normal [facility] Comment on above: Performed By: #### O PRESCHOOL ASSISTANT TEACHER ####[address] [address] BASIC METABOLIC PANELon - Anion gap [Moles/Vol] 14 mmol/L Normal 10 - 20 [facility] Comment on above: Performed By: #### B MP ####[address] [address] Calcium [Mass/Vol] 8.4 mg/dL Low 8.6 - 10.3 [facility] Comment on above: Performed By: #### B MP ####[address] [address] Chloride [Moles/Vol] 108 mmol/L High 98 - 107 [facility] Comment on above: Performed By: #### B MP ####[address] [address] Creatinine [Mass/Vol] 0.93 mg/dL Normal 0.50 - 1.05 [facility] Comment on above: Performed By: #### B MP ####[address] [address] GFR- AM. 73 mL/min/1.73m2 Normal >60 [facility] Comment on above: Result Comment: CALC ULATIONS OF ESTIMATED GFR ARE PERFORMED USING THE MDRD STUDY EQUATION FOR THE IDMS-TRACEABLE CREATININE METHODS. CLIN CHEM 2007;53:766-72 Performed By: #### B MP ####[address] [address] GFR-NON AM. 60 mL/min/1.73m2 Abnormal >60 [facility] Comment on above: Performed By: #### B MP ####[address] [address] Glucose [Mass/Vol] 118 mg/dL High 74 - 99 [facility] Comment on above: Performed By: #### B MP ####[address] [address] HCO3 (Bld) [Moles/Vol] 22 mmol/L Normal 21 - 32 [facility] Comment on above: Performed By: #### B MP ####[address] [address] Potassium [Moles/Vol] 4.2 mmol/L Normal 3.5 - 5.3 [facility] Comment on above: Performed By: #### B MP ####[address] [place] [address] Sodium [Moles/Vol] 140 mmol/L Normal 136 - 145 [facility] Comment on above: Performed By: #### B MP ####[address] [place] [address] Urea nitrogen [Mass/Vol] 36 mg/dL High 6 - 23 [facility] Comment on above: Performed By: #### B MP ####[address] [place] [address] CBCon 10-21-2018 Erythrocyte distribution width (RBC) [Ratio] 14.6 % High 11.5 - 14.5 [facility] Comment on above: Performed By: #### C BC ####[address] [place] [address] Hematocrit (Bld) [Volume fraction] 26.3 % Low 36.0 - 46.0 [facility] Comment on above: Performed By: #### C BC ####[address] [place] [address] Hemoglobin (Bld) [Mass/Vol] 8.0 g/dL Low 12.0 - 16.0 [facility] Comment on above: Performed By: #### C BC ####[address] [place] [address] MCHC (RBC) [Mass/Vol] 30.4 g/dL Low 32.0 - 36.0 [facility] Comment on above: Performed By: #### C BC ####[address] [place] [address] MCV (RBC) [Entitic vol] 92 fL Normal 80 - 100 [facility] Comment on above: Performed By: #### C BC ####[address] [place] [address] Nucleated RBC/100 WBC (Bld) [Ratio] 0.0 /100 WBC Normal 0.0 - 0.0 [facility] Comment on above: Performed By: #### C BC ####[facility] [place] [address] Platelets (Bld) [#/Vol] 244 10*3/uL Normal 150 - 450 [facility] Comment on above: Performed By: #### C BC ####[id number] [place] [address] RBC (Bld) [#/Vol] 2.86 x10E12/L Low 4.00 - 5.20 [facility] Comment on above: Performed By: #### C BC ####[address] [address] WBC (Bld) [#/Vol] 8.6 10*3/uL Normal 4.4 - 11.3 [facility] Comment on above: Performed By: #### C BC ####[address] [address] Consult-Gastroenterologyon 0 10-21-2018 Consult-Gastroentero logy Service: Service: [...] Mood Alteration Objective: Objective Information: T PRBPSpO2 [id number]/539 8% Date/Time10/21 8: 11: 11: 11: 8:00 [...] --EGD tomorrow AM Dr. Chacorta Robledo MD [facility] Body Die Maker Electronic Signatures: Chacorta Robledo) (Signed 21-Oct-2018 15:15) Authored: Service, History of Present Illness, Review Family/Social History and ROS, Allergies, Objective, Assessment/Recommend ations, Signature/Cosignatur e/Attestation Last Updated: 21-Oct-2018 15:15 by Chacorta Robledo) [facility] - Critic ruth ann [...] breath. Objective Data: Objective Information T PRBPSpO2 [id number]/619 7% Date/Time10/21 3: 5: 5: 5: 5:00 [...] reviewed these laboratory results: Glucose_POCT Trending View [id number] 05:27:00 20-Oct-2018 23:24:00 20-Oct-2018 16:44:00 Glucose-REFA878 H 114 H 120 H Complete Blood Count Trending View [id number] 04:11:00 20-Oct-2018 15:31:00 White Blood Cell Count8.6 7.7 Nucleated Erythrocyte Count0.0 0.0 Red Blood Cell Count2.86 L 2.76 L HGB8.0 L 7.7 L HCT26.3 L 25.7 L MCV92 93 MCHC30.4 L 30.0 L SCR200 241 RDW-CV14.6 H 14.6 H Basic Metabolic [...] [facility] who will accept the patient to [facility]. Code Status: Code StatusFull Code Signature/Cosignatur e/Attestation: [...] for greater detail. Electronic Signatures: Homero Enriquez (INTELLIGENCE OPERATIONS SPECIALIST-RN HOME CARE) (Signed 21-Oct-2018 12:03) Authored: Subjective Data, Objective Data, Assessment and Plan, Signature/Cosignatur e/Attestation Last Updated: 21-Oct-2018 12:03 by Homero Enriquez (INTELLIGENCE OPERATIONS SPECIALIST-RN HOME CARE) Normal [facility] GLUCOSE-POCTon 10-21-2018 Glucose [Mass/Vol] 180 mg/dL High 74 - 99 [facility] Comment on above: Performed By: #### G BENNIE ####[address] [address] Glucose [Mass/Vol] 166 mg/dL High 74 - 99 [facility] Comment on above: Performed By: #### G BENNIE ####[address] [address] Glucose [Mass/Vol] 174 mg/dL High 74 - 99 [facility] Comment on above: Performed By: #### G BENNIE ####[address] [address] Glucose [Mass/Vol] 129 mg/dL High 74 - 99 [facility] Comment on above: Performed By: #### G BENNIE ####[address] [address] Glucose [Mass/Vol] 114 mg/dL High 74 - 99 [facility] Comment on above: Performed By: #### G BENNIE ####[address] [address] HEMOGLOBIN A1Con 10-21-2018 HbA1c (Bld) [Mass fraction] 6.8 % Normal [facility] Comment on above: Result Comment: Diag nosis of Diabetes-Adults Non-Diabetic: < or = 5.6% Increased risk for developing diabetes: 5.7-6.4% Diagnostic of diabetes: > or = 6.5% . Monitoring of Diabetes Age (y) Therapeutic Goal (%) Adults: >18 <7.0 Pediatrics: 13-18 <7.5 7-12 <8.0 0- 6 7.5-8.5 [employer]. Diabetes Care 33(S1), Apr 2009. Performed By: #### H BA1E ####[address] [address] HbA1c (Bld) [Mass fraction] 148 MG/DL Normal [facility] Comment on above: Performed By: #### H BA1E ####[address] [address] HGB + HCTon 10-21-2018 Hematocrit (Bld) [Volume fraction] 25.1 % Low 36.0 - 46.0 [facility] Comment on above: Performed By: #### H H ####[address] [address] Hemoglobin (Bld) [Mass/Vol] 7.9 g/dL Low 12.0 - 16.0 [facility] Comment on above: Performed By: #### H H ####[address] [address] MAGNESIUMon 10-21-2018 Magnesium [Mass/Vol] 1.80 mg/dL Normal 1.60 - 2.40 [facility] Comment on above: Performed By: #### M G ####[address] [address] PHOSPHORUSon 10-21-2018 Phosphate [Mass/Vol] 2.1 mg/dL Low 2.5 - 4.9 [facility] Comment on above: Result Comment: The performance characteristics of phosphorus testing in heparinized plasma have been validated by the individual laboratory site where testing is performed. Testing on heparinized plasma is not approved by the FDA; however, such approval is not necessary. Performed By: #### P HOS ####[facility] [place] [address] Preop Checkliston 10-21-2018 Preop Checklist Preop Checklist: Preop Checklist: Arrival [id number] Arrival Time07:30 Procedure Typeesophago - gastro-duodenoscopy NPO [id number] NPO Commentnpo at mid night ID Band [...] 21-Oct-2018 22:04 by Glory Wilde (TIFFANIE) Normal [facility] Admission Risk Screen - Adul ton 10-20-2018 [...] risk with low risk for associated injury Shiro Safety InterventionsWDL *orient to call system *instruct [...] Communicatenone Learning Preferencesaudio Cultural Considerationsnone Developmental Considerationsnone Jew Considerationsnone Learning Assessment (Other Learner): Other learner [...] Spiritual Screen: Are there any cultural, spiritual, roman catholic practices/values/nee ds that are important for us to knowno Do you want a visit/item from Pastoral Careno Would you like your Display Screen Fabricator/Graphic Arts Instructor notifiedno CAGE: Is this an injured patient at a Trauma Center ([facility]/[place]/[facility]/[place]): no Vaccinations: Vaccination - Influenza Vaccination Screen: [...] 20-Oct-2018 11:00 by Judy Monet (NEVAEH) Normal [facility] CBCon 10-20-2018 Erythrocyte distribution width (RBC) [Ratio] 14.6 % High 11.5 - 14.5 [facility] Comment on above: Performed By: #### C BC #### [facility] [address] [place] [address] Hematocrit (Bld) [Volume fraction] 25.7 % Low 36.0 - 46.0 [facility] Comment on above: Performed By: #### C BC #### [address] [place] [address] Hemoglobin (Bld) [Mass/Vol] 7.7 g/dL Low 12.0 - 16.0 [facility] Comment on above: Performed By: #### C BC #### [address] [place] [address] MCHC (RBC) [Mass/Vol] 30.0 g/dL Low 32.0 - 36.0 [facility] Comment on above: Performed By: #### C BC #### [address] [place] [address] MCV (RBC) [Entitic vol] 93 fL Normal 80 - 100 [facility] Comment on above: Performed By: #### C BC #### [address] [place] [address] Nucleated RBC/100 WBC (Bld) [Ratio] 0.0 /100 WBC Normal 0.0 - 0.0 [facility] Comment on above: Performed By: #### C BC #### [address] [place] [address] Platelets (Bld) [#/Vol] 241 10*3/uL Normal 150 - 450 [facility] Comment on above: Performed By: #### C BC #### [address] [place] [address] RBC (Bld) [#/Vol] 2.76 x10E12/L Low 4.00 - 5.20 [facility] Comment on above: Performed By: #### C BC #### [address] [place] [address] WBC (Bld) [#/Vol] 7.7 10*3/uL Normal 4.4 - 11.3 [facility] Comment on above: Performed By: #### C BC #### [address] [place] [address] COMPREHENSIVE PANELon 2018 Albumin [Mass/Vol] 3.6 g/dL Normal 3.4 - 5.0 [facility] Comment on above: Performed By: #### C MP ####[facility] [facility] [place] [address] ALP [Catalytic activity/Vol] 91 U/L Normal 33 - 136 [facility] Comment on above: Performed By: #### C MP ####[address] [place] [address] ALT [Catalytic activity/Vol] 34 U/L Normal 7 - 45 [facility] Comment on above: Result Comment: Shannon ents treated with Sulfasalazine may generate falsely decreased results for ALT. Performed By: #### C MP ####[address] [address] Anion gap [Moles/Vol] 11 mmol/L Normal 10 - 20 [facility] Comment on above: Performed By: #### C MP ####[address] [address] AST [Catalytic activity/Vol] 22 U/L Normal 9 - 39 [facility] Comment on above: Performed By: #### C MP ####[address] [address] Bilirubin [Mass/Vol] 0.2 mg/dL Normal 0.0 - 1.2 [facility] Comment on above: Performed By: #### C MP ####[address] [address] Calcium [Mass/Vol] 8.4 mg/dL Low 8.6 - 10.3 [facility] Comment on above: Performed By: #### C MP ####[address] [address] Chloride [Moles/Vol] 111 mmol/L High 98 - 107 [facility] Comment on above: Performed By: #### C MP ####[address] [place] [address] Creatinine [Mass/Vol] 0.92 mg/dL Normal 0.50 - 1.05 [facility] Comment on above: Performed By: #### C MP ####[address] [address] GFR- AM. >60 Normal >60 [facility] Comment on above: Result Comment: CALC ULATIONS OF ESTIMATED GFR ARE PERFORMED USING THE MDRD STUDY EQUATION FOR THE IDMS-TRACEABLE CREATININE METHODS. CLIN CHEM 2007;53:766-72 Performed By: #### C MP ####[address] [address] GFR-NON AM. >60 Normal >60 [facility] Comment on above: Performed By: #### C MP ####[address] [address] Glucose [Mass/Vol] 120 mg/dL High 74 - 99 [facility] Comment on above: Performed By: #### C MP ####[address] [address] HCO3 (Bld) [Moles/Vol] 22 mmol/L Normal 21 - 32 [facility] Comment on above: Performed By: #### C MP ####[address] [address] Potassium [Moles/Vol] 4.7 mmol/L Normal 3.5 - 5.3 [facility] Comment on above: Performed By: #### C MP ####[address] [address] Protein [Mass/Vol] 6.0 g/dL Low 6.4 - 8.2 [facility] Comment on above: Performed By: #### C MP ####[address] [address] Sodium [Moles/Vol] 139 mmol/L Normal 136 - 145 [facility] Comment on above: Performed By: #### C MP ####[address] [address] Urea nitrogen [Mass/Vol] 45 mg/dL High 6 - 23 [facility] Comment on above: Performed By: #### C MP ####[address] [address] Albumin [Mass/Vol] Canceled Normal [facility] Comment on above: Order Comment: TEST COMPREHENSIVE PANEL WAS CANCELLED, 10/20/2018 16:05 ?Cancel Reason: Cancelled. Performed By: #### C MP #### [address] [place] [address] ALP [Catalytic activity/Vol] Canceled Normal [facility] Comment on above: Order Comment: TEST COMPREHENSIVE PANEL WAS CANCELLED, 10/20/2018 16:05 ?Cancel Reason: Cancelled. Performed By: #### C MP #### [address] [place] [address] ALT [Catalytic activity/Vol] Canceled Normal [facility] Comment on above: Order Comment: TEST COMPREHENSIVE PANEL WAS CANCELLED, 10/20/2018 16:05 ?Cancel Reason: Cancelled. Result Comment: Shannon ents treated with Sulfasalazine may generate falsely decreased results for ALT. Performed By: #### C MP #### [address] [place] [address] Anion gap [Moles/Vol] Canceled Normal [facility] Comment on above: Order Comment: TEST COMPREHENSIVE PANEL WAS CANCELLED, 10/20/2018 16:05 ?Cancel Reason: Cancelled. Performed By: #### C MP #### [address] [place] [address] AST [Catalytic activity/Vol] Canceled Normal [facility] Comment on above: Order Comment: TEST COMPREHENSIVE PANEL WAS CANCELLED, 10/20/2018 16:05 ?Cancel Reason: Cancelled. Performed By: #### C MP #### [address] [place] [address] Bilirubin [Mass/Vol] Canceled Normal [facility] Comment on above: Order Comment: TEST COMPREHENSIVE PANEL WAS CANCELLED, 10/20/2018 16:05 ?Cancel Reason: Cancelled. Performed By: #### C MP #### [address] [place] [address] Calcium [Mass/Vol] Canceled Normal [facility] Comment on above: Order Comment: TEST COMPREHENSIVE PANEL WAS CANCELLED, 10/20/2018 16:05 ?Cancel Reason: Cancelled. Performed By: #### C MP #### [address] [place] [address] Chloride [Moles/Vol] Canceled Normal [facility] Comment on above: Order Comment: TEST COMPREHENSIVE PANEL WAS CANCELLED, 10/20/2018 16:05 ?Cancel Reason: Cancelled. Performed By: #### C MP #### [address] [place] [address] Creatinine [Mass/Vol] Canceled Normal [facility] Comment on above: Order Comment: TEST COMPREHENSIVE PANEL WAS CANCELLED, 10/20/2018 16:05 ?Cancel Reason: Cancelled. Performed By: #### C MP #### [address] [place] [address] GFR- AM. Canceled Normal [facility] Comment on above: Order Comment: TEST COMPREHENSIVE PANEL WAS CANCELLED, 10/20/2018 16:05 ?Cancel Reason: Cancelled. Result Comment: CALC ULATIONS OF ESTIMATED GFR ARE PERFORMED USING THE MDRD STUDY EQUATION FOR THE IDMS-TRACEABLE CREATININE METHODS. CLIN CHEM 2007;53:766-72 Performed By: #### C MP #### [address] [place] [address] GFR-NON AM. Canceled Normal [facility] Comment on above: Order Comment: TEST COMPREHENSIVE PANEL WAS CANCELLED, 10/20/2018 16:05 ?Cancel Reason: Cancelled. Performed By: #### C MP #### [address] [place] [address] Glucose [Mass/Vol] Canceled Normal [facility] Comment on above: Order Comment: TEST COMPREHENSIVE PANEL WAS CANCELLED, 10/20/2018 16:05 ?Cancel Reason: Cancelled. Performed By: #### C MP #### [address] [place] [address] HCO3 (Bld) [Moles/Vol] Canceled Normal [facility] Comment on above: Order Comment: TEST COMPREHENSIVE PANEL WAS CANCELLED, 10/20/2018 16:05 ?Cancel Reason: Cancelled. Performed By: #### C MP #### [address] [place] [address] Potassium [Moles/Vol] Canceled Normal [facility] Comment on above: Order Comment: TEST COMPREHENSIVE PANEL WAS CANCELLED, 10/20/2018 16:05 ?Cancel Reason: Cancelled. Performed By: #### C MP #### [address] [place] [address] Protein [Mass/Vol] Canceled Normal [facility] Comment on above: Order Comment: TEST COMPREHENSIVE PANEL WAS CANCELLED, 10/20/2018 16:05 ?Cancel Reason: Cancelled. Performed By: #### C MP #### [address] [place] [address] Sodium [Moles/Vol] Canceled Normal [facility] Comment on above: Order Comment: TEST COMPREHENSIVE PANEL WAS CANCELLED, 10/20/2018 16:05 ?Cancel Reason: Cancelled. Performed By: #### C MP #### [address] [place] [address] Urea nitrogen [Mass/Vol] Canceled Normal [facility] Comment on above: Order Comment: TEST COMPREHENSIVE PANEL WAS CANCELLED, 10/20/2018 16:05 ?Cancel Reason: Cancelled. Performed By: #### C MP #### [address] [place] [address] Clinical Intervention - Nguyễn talavera 10-20-2018 Clinical Intervention - Pharmacy Pharmacist's Clinical Intervention: Is this intervention medication reconciliation related: Yes, HISTORY Electronic Signatures: Helena Guillen (Map Decisions) (Signed 20-Oct-2018 12:41) Authored: Pharmacist's Clinical Intervention Last Updated: 20-Oct-2018 12:41 by Helena Guillen (Map Decisions) Normal [facility] Clinical Intervention - Pharmacy Pharmacist's Clinical Intervention: Is this intervention medication reconciliation related: Yes, ALLERGY Electronic Signatures: Helena Guillen (Map Decisions) (Signed 20-Oct-2018 12:40) Authored: Pharmacist's Clinical Intervention Last Updated: 20-Oct-2018 12:40 by Helena Guillen ([facility]) Normal [facility] Discharge Planning Noteon Discharge Planning Note Discharge Needs Assessment: Discharge Planning Assessment [id number] Readmission Within the Last 30 Daysno previous [...] Discharge Planning: Discharge Planning: Patient admitted from [place] to ICU for a syncopal episode 10/21/18 1225- Met with pt at bedside, she lives with her and daughter in a 1 story home, reports being independent, drives, uses a cane as needed. Pt has hx of DM II- has a working glucose meter and supplies. PCP is Dr Ambrose, seen 3 wks ago. Preferred pharmacy is [facility] in [place], reports taking her medications as prescribed and is able to afford them. Pt plans to return home, denies any needs. Ritu HERRING TCC Final Disposition/Discharg e: Disposition/Discharg e Information: Discharge/Transfer Information: Discharge/Transfer Date/[id number] Discharged Accompanied Byspouse Discharge Modewheelchair Transportation Methodprivate car Valuables/Medication s/Belongings Returnedyes Final DispositionHome Electronic Signatures: Judy Monet (RN) (Signed 20-Oct-2018 11:07) Authored: Discharge Planning Note Ritu Ruiz (BRUSH HOLDER INSPECTOR) (Signed 21-Oct-2018 13:40) Authored: Discharge Planning Note Sharmin Mayfield (SHYANN) (Signed 22-Oct-2018 16:42) Authored: Final Disposition/Discharg e Last Updated: 22-Oct-2018 16:42 by Sharmin Mayfield (SHYANN) References: 1. Data Referenced From 5. Education 10/20/2018 10:55 AM 2. Data Referenced From Admission Risk Screen - Adult 10/20/2018 10:55 AM [facility] [place] 10-20-2018 ADDON CONFIRMATION REQUEST REC'D Normal [facility] Comment on above: Performed By: #### E MRAD #### [facility] [address] [place] [address] GLUCOSE-POCTon 10-20-2018 Glucose [Mass/Vol] 120 mg/dL High 74 - 99 [facility] Comment on above: Performed By: #### G BENNIE ####[facility] [place] [address] History and Physical - Cridaren brasher Lindsey 10-20-2018 History and Physical - Critical Care [...] normal per the patient. She presented to [facility] on September 20 for evaluation of syncopal [...] Objective: Objective Information: Objective Information T PRBPSpO2 [id number]/609 8% Date/Time10/20 10: 12: 12: 12: 12:00 [...] significant lymphadenopathy Psychological: Appropriate mood and behavior [place] T Coma Scale: Best Eye Response: (E4) spontaneous Best Motor Response: (M6) obeys commands Best Verbal Response: (V5) oriented [place] Score: 15 Recent Lab Results: Results: Assessment [...] Admit to Inpatient Adult Community Transfer to, [facility] [place] [facility] Admitting Diagnosis, K92.0 Gastrointestinal hemorrhage with hematemesis , Attending Provider Ildefonso Starks David Admission Order Certification order has been placed by Ildefonso Starks Electronic Signatures: Ildefonso Starks) (Signed 20-Oct-2018 23:06) Authored: Signatures/Attestati on/Certification Co-Signer: Service, History of Present Illness, Comorbidities, Family History, Social History, Allergies, Medications Prior to Admission, Review of Systems, Objective, Assessment and Plan, Signatures/Attestati on/Certification Homero Enriquez (INTELLIGENCE OPERATIONS SPECIALIST-RN HOME CARE) (Signed 21-Oct-2018 05:40) Authored: Service, History of Present Illness, Comorbidities, Family History, Social History, Allergies, Medications Prior to Admission, Review of Systems, Objective, Assessment and Plan, Signatures/Attestati on/Certification Last Updated: 21-Oct-2018 05:40 by Homero Enriquez (INTELLIGENCE OPERATIONS SPECIALIST-RN HOME CARE) Normal [facility] PT/INRon 10-20-2018 INR Coag (PPP) [Relative time] 1.0 {INR} Normal 0.9 - 1.1 [facility] Comment on above: Performed By: #### P TINR ####[address] [address] PT Coag (PPP) [Time] 11.5 s Normal 9.7 - 12.7 [facility] Comment on above: Performed By: #### P TINR ####[address] [address] INR Coag (PPP) [Relative time] Canceled Normal [facility] Comment on above: Order Comment: TEST PT/INR WAS CANCELLED, 10/20/2018 16:05 ?Cancel Reason: Cancelled. Performed By: #### P TINR #### [address] [address] PT Coag (PPP) [Time] Canceled Normal [facility] Comment on above: Order Comment: TEST PT/INR WAS CANCELLED, 10/20/2018 16:05 ?Cancel Reason: Cancelled. Performed By: #### P TINR #### [address] [address] Patient Profile - Adult v2on 10-20-2018 Patient Profile - Adult v2 Profile: Initial Info: How to be AddressedBev Spoken Language PreferredEnglish (1) Are you currently using the Personal Electronic Health Record or Mention MobileUHCAREno Are you interested in learning more about [facility] for the management of your healthdeclined Stated Reason for AdmissionSyncope Limitations on Visitors/Phone [facility] Employment Statusretired Current or Previous Servicenone Patient Belongingssent home Medications Brought to Hospitalno History of MDROno General Health: Weight in kg99 kilogram(s) Weight in joc909.2 pound(s) Height in feet5 feet Height in [...] in Mood/Behaviordenies Major Change/Loss/Stressor /Fearsdenies Techniques to [place] with Loss/Stress/Changeme ditation Substance: Current or Former [...] Significant Exposurenone Resource/Environment al Concernsnone Anticipated Transition [facility] Anticipated at Transitionnone Significant IndicatorsComplete Information [...] - Preop v2 10/05/2018 7:24 AM Normal [facility] TROPONIN Ion 10-20-2018 Troponin I.cardiac [Mass/Vol] Canceled Normal [facility] Comment on above: Order Comment: per Nolvia [...] is performed using different testing methodology at [facility] than at other [facility]. Direct result comparisons should only be made within the same method. Performed By: #### T ROP2 ####[id number] [place] [address] Troponin I.cardiac [Mass/Vol] ng/mL Normal 0.00 - 0.03 [facility] Comment on above: Result Comment: LESS THAN [...] is performed using different testing methodology at [facility] than at other [facility]. Direct result comparisons should only be made within the same method. Performed By: #### T ROP2 ####[id number] [place] [address] Troponin I.cardiac [Mass/Vol] Canceled Normal [facility] Comment on above: Order Comment: TEST TROPONIN [...] is performed using different testing methodology at [facility] than at other [facility]. Direct result comparisons should only be made within the same method. Performed By: #### T ROP2 ####[id number] [facility] [place] [place] [address] TYPE + SCREENon 10-20-2018 ABO TYPE O Normal [facility] Comment on above: Performed By: #### T +S ####[address] [place] [address] RH TYPE Positive Normal [facility] Comment on above: Performed By: #### T +S ####[address] [place] [address] ABO TYPE Canceled Normal [facility] Comment on above: Order Comment: TEST TYPE + SCREEN WAS CANCELLED, 10/20/2018 16:05 ?Cancel Reason: Cancelled. Performed By: #### T +S #### [address] [place] [address] RH TYPE Canceled Normal [facility] Comment on above: Order Comment: TEST TYPE + SCREEN WAS CANCELLED, 10/20/2018 16:05 ?Cancel Reason: Cancelled. Performed By: #### T +S #### [address] [place] [address] Alk Phos Isoenzymeson 2017 Alk-Phosphatase Bone 60 U/L High 0-55 [facility] Comment on above: Performed By: #### 1 [id number] #### [facility] [address] [place] [address] Alk-Phosphatase Liver 82 U/L Normal 0-94 [facility] Comment on above: Result Comment: INTE RPRETIVE INFORMATION: Alk-Phosphatase Liver Calc Bone Specific Alkaline Phosphatase (2195457) and 5'-nucleotidase (5779534) may be useful in identifying disorders of bone and liver, respectively. Performed By: #### 1 [id number] #### [facility] [address] [place] [address] Alk-Phosphatase Other 0 U/L Normal [facility] Comment on above: Result Comment: Perf ormed by [facility], [address], [facility] [address] [email or web address], Sedrick Sue MD - Lab. Director Performed By: #### 1 [id number] #### [facility] [address] [place] [address] ALP enzyme act/vol 142 U/L High 40-120 [facility] Comment on above: Performed By: #### 1 [id number] #### [facility] [address] [place] [address] Fgiyo-3-Xaxsfiolxme, Totalon 07-28-2017 Lhwxy-6-Kvtjloogdmm, Total 125 mg/dL Normal 84-218 [facility] Anti-Nuclear Ab Titer w/ALIYAH Panelon 07-28-2017 Anti-Nuclear Ab (GILL) Pattern HOMOGENEOUS Normal [facility] Anti-Nuclear Ab Titer 1:40 Normal [facility] Centromere (ALIYAH) Ab, IgG 0.2 AI Normal [facility] Comment on above: Result Comment: REF VALUES < 1.0 = NEGATIVE >=1.0 = POSITIVE Chromatin (ALIYAH) Ab, IgG <0.2 [facility] Comment on above: Result Comment: REF VALUES < 1.0 = NEGATIVE >=1.0 = POSITIVE dsDNA Ab, IgG <1.0 [facility] Comment on above: Result Comment: REF VALUES NEGATIVE: <= 4 IU/ML EQUIVOCAL: 5- 9 IU/ML POSITIVE: >=10 IU/ML PARISA-1 (ALIYAH) Ab, IgG <0.2 Normal [facility] Comment on above: Result Comment: REF VALUES < 1.0 = NEGATIVE >=1.0 = POSITIVE Ribonucleic Prot (ALIYAH) Ab, IgG <0.2 Normal [facility] Comment on above: Result Comment: REF VALUES < 1.0 = NEGATIVE >=1.0 = POSITIVE Ribosomal P Prot (ALIYAH) Ab, IgG <0.2 Normal [facility] Comment on above: Result Comment: REF VALUES < 1.0 = NEGATIVE >=1.0 = POSITIVE Scleroderma (Scl-70) (ALIYAH) Ab, IgG <0.2 Normal [facility] Comment on above: Result Comment: REF VALUES < 1.0 = NEGATIVE >=1.0 = POSITIVE Alcazar (ALIYAH) Ab, IgG <0.2 Normal [facility] Comment on above: Result Comment: REF VALUES < 1.0 = NEGATIVE >=1.0 = POSITIVE Alcazar/BOAT DRIVER (ALIYAH) Ab, IgG <0.2 Normal [facility] Comment on above: Result Comment: REF VALUES < 1.0 = NEGATIVE >=1.0 = POSITIVE SSA (Ro) (ALIYAH) Ab, IgG <0.2 Normal [facility] Comment on above: Result Comment: REF VALUES < 1.0 = NEGATIVE >=1.0 = POSITIVE SSB (La) (ALIYAH) Ab, IgG <0.2 Normal [facility] Comment on above: Result Comment: REF VALUES < 1.0 = NEGATIVE >=1.0 = POSITIVE Anti-Nuclear Ab W/Rfx to Tit er, ENAon 07-28-2017 Anti-Nuclear Ab, W/Rfx to Titer Positive Abnormal NEGATIVE [facility] Ceruloplasminon 07-28-2017 Ceruloplasmin 30 mg/dL Normal 20-60 [facility] Ferritinon 07-28-2017 Ferritin mass conc 348 ng/mL High 8-150 [facility] Comment on above: Performed By: #### 1 [id number] #### [facility] [address] [place] [address] Hepatic Function Panelon Albumin mass conc 4.1 g/dL Normal 3.4-5.0 [facility] Comment on above: Performed By: #### 1 [id number] #### [facility] [address] [place] [address] Albumin/Globulin mass ratio 1.4 {ratio} Normal 0.9-2.4 [facility] Comment on above: Performed By: #### 1 [id number] #### [facility] [address] [place] [address] ALP enzyme act/vol 141 U/L High 45-117 [facility] Comment on above: Performed By: #### 1 [id number] #### [facility] [address] [place] [address] ALT enzyme act/vol 44 U/L Normal 7-45 [facility] Comment on above: Performed By: #### 1 [id number] #### [facility] [address] [place] [address] AST enzyme act/vol 29 U/L Normal 13-39 [facility] Comment on above: Performed By: #### 1 [id number] #### [facility] [address] [place] [address] Bilirubin mass conc 0.3 mg/dL Normal 0.0-1.2 [facility] Comment on above: Performed By: #### 1 [id number] #### [facility] [address] [place] [address] Bilirubin.direct mass conc 0.1 mg/dL Normal 0.0-0.3 [facility] Comment on above: Performed By: #### 1 [id number] #### [facility] [address] [place] [address] Protein mass conc 7.0 g/dL Normal 6.4-8.2 [facility] Comment on above: Performed By: #### 1 [id number] #### [facility] [address] [place] [address] Hepatitis A Total Abon 07-28 Hepatitis A Total Ab REACTIVE Abnormal NONREACTIVE [facility] Comment on above: Result Comment: Shannon ents receiving more than 5 mg/day of biotin may have interf in test results. A sample should be taken no sooner than eight after previous dose. Contact [phone] for additional infor Hepatitis B Core Antibodies, Totalon 07-28-2017 Hepatitis B Core Antibodies, Total NONREACTIVE Normal NONREACTIVE [facility] Comment on above: Result Comment: Shannon ents receiving more than 5 mg/day of biotin may have interf in test results. A sample should be taken no sooner than eight after previous dose. Contact [phone] for additional infor Hepatitis B Surface Abon Hepatitis B Surface Ab <3.1 Normal <10 [facility] Comment on above: Result Comment: INTE RPRETIVE CRITERIA: <10 mIU/mL....NONREACTIVE >=10 mIU/mL...REACTIVE . Patients receiving more than 5 mg/day of biotin may have interf in test results. A sample should be taken no sooner than eight after previous dose. Contact [phone] for additional infor Hepatitis B Surface Antigeno n 07-28-2017 Hepatitis B Surface Antigen NONREACTIVE Normal NONREACTIVE [facility] Comment on above: Result Comment: Shannon ents receiving more than 5 mg/day of biotin may have interf in test results. A sample should be taken no sooner than eight after previous dose. Contact [phone] for additional infor Hepatitis C Antibody w/rfx t o Confirmon 07-28-2017 Hepatitis C Antibody NON-REACTIVE Normal NONREACTIVE [facility] Comment on above: Result Comment: Shannon ents receiving more than 5 mg/day of biotin may have interf in test results. A sample should be taken no sooner than eight after previous dose. Contact [phone] for additional infor Iron Profileon 07-28-2017 Iron Binding Capacity 331 ug/dL Normal 250-565 [facility] Comment on above: Performed By: #### [id number] #### [facility] [address] [place] [address] Iron mass conc 72 ug/dL Normal 35-150 [facility] Comment on above: Performed By: #### 1 [id number] #### [facility] [address] [place] [address] Percent Saturation 22 % Normal 14-27 [facility] Comment on above: Performed By: #### [id number] #### [facility] [address] [place] [address] Unbound Iron Binding Capacity 259 ug/dL Normal 90-340 [facility] Comment on above: Performed By: #### 1 [id number] #### [facility] [address] [place] [address] Mitochondrial M2 Ab, IgGon 0 07-28-2017 Mitochondrial M2 Ab, IgG 3.0 Units Normal 0.0-20.0 [facility] Comment on above: Result Comment: INTE RPRETIVE INFORMATION: Mitochondrial (M2) Antibody, IgG 20.0 Units or less ......... Negative 20.1 - 24.9 Units........... Equivocal 25.0 Units or greater....... Positive Performed by [facility], [address] [place] [address],[place] [address] [email or web address], Sedrick Sue MD - Lab. Director Performed By: #### 1 [id number] #### [facility] [address] [place] [address] Smooth Muscle (F-Actin) IgG w/Rfxon 07-28-2017 Smooth Muscle Ab, IgG Positive Normal NEGATIVE [facility] Smooth Muscle Ab, IgG Titer 1:20 Normal [facility] PROGRESSon 04-21-2017 [facility] NOTES Normal [facility] Vital Signs Date Time Vital Sign Value Performing Clinician Facility 11-30-2024 [id number] Body height 160 cm Bobbi Barker MD Work Phone: [facility] 11-30-2024 [id number] Body mass index (BMI) [Ratio] 34.44 kg/m2 Bobbi Barker MD Work Phone: [facility] 11-30-2024 10:26-0400 Body weight 88.18 kg Bobbi Barker MD Work Phone: [facility] 11-30-2024 10:26-0400 Diastolic blood pressure 64 mm[Hg] Bobbi Barker MD Work Phone: [facility] 11-30-2024 10:26-0400 Heart rate 77 /min Bobbi Barker MD Work Phone: [facility] 11-30-2024 10:26-0400 Respiratory rate 18 /min Bobbi Barker MD Work Phone: [facility] 11-30-2024 10:26-0400 SaO2% (BldA) [Mass fraction] 94 % Bobbi Barker MD Work Phone: [facility] 11-30-2024 10:26-0400 Systolic blood pressure 120 mm[Hg] Bobbi Barker MD Work Phone: [facility] 06-07-2024 10:16-0500 Body height 160 cm Bobbi Barker MD Work Phone: [facility] 03-05-2025 10:16-0500 Body mass index (BMI) [Ratio] 34.54 kg/m2 Bobbi Barker MD Work Phone: [facility] 06-07-2024 10:16-0500 Body weight 88.45 kg Bobbi Barker MD Work Phone: [facility] 06-07-2024 10:16-0500 Diastolic blood pressure 64 mm[Hg] Bobbi Barker MD Work Phone: [facility] 06-07-2024 10:16-0500 Heart rate 76 /min Bobbi Barker MD Work Phone: [facility] 06-07-2024 10:16-0500 Respiratory rate 16 /min Bobbi Barker MD Work Phone: [facility] 06-07-2024 10:16-0500 SaO2% (BldA) [Mass fraction] 96 % Bobbi Barker MD Work Phone: [facility] 06-07-2024 10:16-0500 Systolic blood pressure 112 mm[Hg] Bobbi Barker MD Work Phone: [facility] 05-12-2023 09:24-0500 Body height 158.8 cm Michael Villa DO Work Phone: [facility] 05-12-2023 09:24-0500 Body mass index (BMI) [Ratio] 34.56 kg/m2 Michael Villa DO Work Phone: [facility] 05-12-2023 09:24-0500 Body temperature 98.1 [degF] Michael Villa DO Work Phone: [facility] 05-12-2023 09:24-0500 Body weight 87.09 kg Michael Villa DO Work Phone: [facility] 04-08-2023 15:06-0500 Diastolic blood pressure 71 mm[Hg] MD Bree Ambrose Work Phone: [facility] 04-08-2023 15:06-0500 Heart rate 75 /min MD Bree Ambrose Work Phone: [facility] 04-08-2023 15:06-0500 Respiratory rate 18 /min MD Bree Ambrose Work Phone: [facility] 04-08-2023 15:06-0500 SaO2% (BldA) [Mass fraction] 97 % MD Bree Ambrose Work Phone: [facility] 04-08-2023 15:06-0500 Systolic blood pressure 163 mm[Hg] MD Bree Ambrose Work Phone: [facility] 04-08-2023 13:28-0500 Body height 160.02 cm MD Bree Ambrose Work Phone: [facility] 04-08-2023 13:28-0500 Body temperature 98.2 [degF] MD Bree Ambrose Work Phone: [facility] 04-08-2023 13:28-0500 Body weight 88.45 kg MD Bree Ambrose Work Phone: [facility] Encounters Encounter Date Encounter Type Care Provider Facility Start: 12-20-2025 ambulatory Micaela L Candelario Facility: [facility] Brent Start: 12-28-2024 End: 12-28-2024 ambulatory Micaela L Candelario Facility:[facility] Brice cecelia Start: 12-18-2024 End: 12-18-2024 ambulatory Arley Keller Facility:[facility] Brice cecelia Start: 12-15-2024 End: 12-15-2024 ambulatory XXXX NONE Facility:[facility] Start: 11-30-2024 End: 11-30-2024 Bamboo flowsheet Bobbi Barker MD Work Phone: [facility] [place] [facility] Start: 11-30-2024 End: 11-30-2024 Bamboo flowsheet Bobbi Barker MD Work Phone: [facility] Start: 11-30-2024 End: 11-30-2024 Office outpatient visit 25 minutes Bobbi Barker MD Work Phone: [facility] Comment on above: Type 2 diabetes adela itus with hyperglycemia, with long-term current use of insulin (HCC) (Primary Dx); Vitamin D deficiency; Insulin long-term use (HCC); Primary hypertension ; Hyperlipemia, mixed ; Encounter for dietary consultation; Class 1 obesity due to excess calories with serious comorbidity and body mass index (BMI) of 34.0 to 34.9 in adult Start: 11-30-2024 End: 11-30-2024 ambulatory EMILYNolvia Jhoana DARINEL Not Available Start: 11-20-2024 End: 11-20-2024 Bamboo flowsheet Harris Foley MD Work Phone: [facility] Start: 11-20-2024 End: 11-20-2024 Bamjunior Foley MD Work Phone: [facility] Start: 11-20-2024 End: 11-20-2024 Postop follow up visit related to original px Harris Foley MD Work Phone: [facility] Comment on above: Encounter for remova l of sutures (Primary Dx) Start: 11-20-2024 End: 11-20-2024 ambulatory HARRIS FOLEY Not Available Start: 11-06-2024 End: 11-06-2024 Patient encounter procedure Harris Foley MD Work Phone: [facility] Comment on above: Basal cell carcinoma (BCC) of chest (Primary Dx) Start: 11-06-2024 End: 11-06-2024 ambulatory HARRIS FOLEY Not Available Start: 11-06-2024 End: 11-06-2024 Bamboo flowssatnam Foley MD Work Phone: [facility] Start: 11-06-2024 End: 11-06-2024 Bamboo flowssatnam Foley MD Work Phone: [facility] Start: 11-03-2024 End: 11-03-2024 Bamboo flowsheet Shelton Triana DPM [facility] Start: 11-03-2024 End: 11-03-2024 Bamboo flowsheet Shelton Triana DPM Work Phone: [facility] [place] [facility] Start: 11-03-2024 End: 11-03-2024 Patient encounter procedure Shelton Triana DPM Work Phone: [facility] Comment on above: 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); Pre-ulcerative calluses; Hallux valgus of right foot; Hallux valgus of left foot; Hammertoe of right foot; Hammertoe of left foot; 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; Plantar fat pad atrophy of left foot Start: 11-03-2024 End: 11-03-2024 ambulatory SHELTON TRIANA Not Available Start: 09-29-2024 End: 09-29-2024 Bamboo [employer] Joselo Fischerer INTELLIGENCE OPERATIONS SPECIALIST-RN HOME CARE Work Phone: [facility] Start: 09-29-2024 End: 09-29-2024 Bamboo [employer] Joselo A Felter INTELLIGENCE OPERATIONS SPECIALIST-RN HOME CARE Work Phone: [facility] Start: 09-29-2024 End: 09-29-2024 Office outpatient visit 15 minutes Joselo Thrasher INTELLIGENCE OPERATIONS SPECIALIST-RN HOME CARE Work Phone: [facility] Comment on above: Seborrheic keratosis (Primary Dx); Capillary angioma; Lentigines; History of basal cell carcinoma; Actinic keratosis; Neoplasm of unspecified behavior of bone, soft tissue, and skin Start: 09-29-2024 End: 09-29-2024 ambulatory JOSELO THRASHER Not Available Start: 09-11-2024 End: 09-11-2024 ambulatory Arley Keller Facility:[facility] Start: 09-11-2024 End: 09-11-2024 Patient encounter procedure Arley Keller [facility] Start: 08-31-2024 End: 08-31-2024 Lab Drop off Arley Keller [facility] Start: 08-31-2024 End: 08-31-2024 ambulatory Arley Heredia Krishna Facility:[facility] Alisson cecelia Start: 07-07-2024 End: 07-07-2024 Bamboo flowsheet Shelton Triana DPM Work Phone: [facility] Start: 07-07-2024 End: 07-07-2024 Bamboo flowsheet Shelton Triana DPM Work Phone: [facility] Start: 07-07-2024 End: 07-07-2024 Office outpatient visit 15 minutes Shelton Triana DPM Work Phone: [facility] Comment on above: Type II diabetes [...] Start: 06-15-2024 End: 06-15-2024 ambulatory Randolph Shah Facility:[facility] Start: 06-15-2024 End: 06-15-2024 Patient encounter procedure Randolph Shah [facility] Start: 06-07-2024 End: 06-07-2024 Bamboo flowsheet Bobbi Barker MD Work Phone: [facility] Start: 06-07-2024 End: 06-07-2024 Bamboo flowsheet Bobbi Barker MD Work Phone: [facility] Start: 06-07-2024 End: 06-07-2024 Office outpatient visit 25 minutes Bobbi Barker MD Work Phone: [facility] Comment on above: Type 2 diabetes adela itus with hyperglycemia, with long-term current use of insulin ([facility]/HCC) (Primary Dx); Vitamin D deficiency; Insulin long-term use (CMS/HCC); Primary hypertension (CMS/HCC); Hyperlipemia, mixed (CMS/HCC); Encounter for dietary consultation; Class 1 obesity due to excess calories with serious comorbidity and body mass index (BMI) of 34.0 to 34.9 in adult Start: 06-07-2024 End: 06-07-2024 ambulatory BOBBI BARKER Not Available Start: 06-02-2024 End: 06-02-2024 ambulatory Arlye Keller Facility:[facility] Start: 05-09-2024 End: 05-09-2024 Patient encounter procedure Arley Keller MD Work Phone: [facility] [address] Work Phone: Start: 05-09-2024 End: 05-09-2024 ambulatory Arley Keller MD Work Phone: [facility] Work Phone: Start: 05-05-2024 End: 05-05-2024 ambulatory Arley Keller Facility:[facility] Start: 05-05-2024 End: 05-19-2024 Patient encounter procedure Randolph Shah [facility] Start: 04-25-2024 End: 04-25-2024 Patient encounter procedure Arley Keller MD Work Phone: [facility] [address] Work Phone: Start: 04-25-2024 End: 04-25-2024 ambulatory Arley Keller MD Work Phone: [facility] Work Phone: Start: 02-29-2024 End: 02-29-2024 ambulatory Arley Keller Facility:[facility] Alisson rai Start: 12-21-2023 End: 12-21-2023 Lab Drop off Arley EKirill Krishna [facility] Start: 12-21-2023 End: 12-21-2023 ambulatory Arley Yan Keller Facility:[facility] Start: 12-16-2023 End: 12-16-2023 ambulatory Micaela Cartwright Candelario Facility:[facility] Start: 11-08-2023 End: 11-08-2023 ambulatory [facility] Start: 08-31-2023 End: 08-31-2023 Lab Drop off Arley Keller [facility] Start: 08-31-2023 End: 08-31-2023 ambulatory Arleymarcell Keller Facility:[facility] Start: 07-09-2023 End: 07-09-2023 ambulatory RICKYSrinivas VALDIVIA Facility:[facility] Start: 05-12-2023 Bamboo flowsheet Michael santana DO Work Phone: [facility] Start: 05-12-2023 Bamboo flowsheet Michael santana DO Work Phone: [facility] Start: 05-12-2023 End: 05-12-2023 Patient encounter procedure Michael Villa DO Work Phone: [facility] Comment on above: Traumatic closed dis placed fracture of right shoulder with anterior dislocation with routine healing, subsequent encounter (Primary Dx) Start: 05-11-2023 End: 05-11-2023 ambulatory Agustín Lacey Facility:[facility] Start: 04-08-2023 End: 04-08-2023 Emergency department patient visit MD Bree Ambrose Work Phone: [facility] Work Phone: Start: 03-16-2023 End: 03-16-2023 ambulatory MD Bree Ambrose Work Phone: [facility] Work Phone: Start: 03-16-2023 End: 03-16-2023 Patient encounter procedure MD Bree Ambrose Work Phone: [facility] [address] Work Phone: Start: 06-30-2022 End: 06-30-2022 Lab Drop off Micaela Palomino [facility] Start: 05-21-2022 End: 05-22-[address] ANTONINA NEWSOME Facility:[facility] Start: 05-14-2022 End: 05-22-[address] BREE AMBROSE . Facility:[facility] Start: 01-22-2022 End: 01-23-[address] BREE AMBROSE . Facility:[facility] Start: 12-23-2021 Office outpatient vi sit 15 minutes Bree Ambrose Work Phone: [facility] [address] [facility] Work Phone: Start: 12-23-[address] Ary Arrieta Fac ility:[id number] Start: 12-02-2021 Patient encounter procedure Bree Ambrose Work Phone: [facility] [address] Work Phone: Start: 11-14-2021 End: 12-10-[address] BREE AMBROSE . Facility:[facility] Start: 02-11-2021 Patient encounter procedure Bree Ambrose Work Phone: [facility] [address] [facility] Work Phone: Start: 02-11-[address] Kenroy Low Facility:[id number] Start: 06-01-2018 Patient encounter procedure PROVIDER UNKNOWN Facility:7 Start: 09-09-2017 Patient encounter procedure PROVIDER UNKNOWN Facility:7 Start: 08-04-2017 Patient encounter procedure PROVIDER UNKNOWN Facility:7 Start: 07-28-2017 Patient encounter procedure PROVIDER UNKNOWN Facility:7 Start: 07-28-2017 Patient encounter procedure PROVIDER UNKNOWN Facility:7 Start: 04-21-2017 Ambulatory [facility] Procedures Date Procedure Procedure Detail Performing Clinician Start: 11-30-2024 Gluc bld gluc mntr d ev cleared fda spec home use Bobbi Barker MD Work Phone: Start: 11-06-2024 SKIN REPAIR Harris cantu MD Work Phone: Start: 11-06-2024 SKIN EXCISION Harris wong MD Work Phone: Start: 09-29-2024 SKIN / NAIL BIOPSY Apurva houston Thrasher INTELLIGENCE OPERATIONS SPECIALIST-RN HOME CARE Work Phone: Start: 09-29-2024 CRYOTHERAPY SKIN LESION Joselo Fischerjenna INTELLIGENCE OPERATIONS SPECIALIST-RN HOME CARE Work Phone: Start: 06-07-2024 Gluc bld gluc mntr d ev cleared fda spec home use Bobbi Barker MD Work Phone: Start: 05-12-2023 Radex shoulder compl ete minimum 2 views Michael Villa DO Work Phone: Start: 04-08-2023 End: 04-08-2023 Plain X-ray of right shoulder MD Bree Ambrose Work Phone: Start: 01-20-2021 Blepharoplasty of up per eyelid Micaela Palomino Start: 10-20-2018 Antibody screen Comment on above: Performed By: #### T +S ####[id number] [facility] [place] [address] Start: 10-20-2018 Antibody screen Comment on above: Order Comment: TEST TYPE + SCREEN WAS CANCELLED, 10/20/2018 16:05 ?Cancel Reason: Cancelled. Performed By: #### T +S #### [facility] [id number] [facility] [place] [place] [address] Start: 04-05-2016 History of placement of stent for coronary artery disease Randolph Shah Start: 08-03-2014 History of placement of stent for coronary artery disease History of heart artery stent Bobbi Barker MD Work Phone: Appendectomy Micaela Palomino Arthroplasty of knee Micaela Sc hwab Arthroscopy, knee Bree garcia Work Phone: Biopsy Of Liver Bree Ambrose [...] Patient encounter procedure [facility] Start: 03-22-2025 End: 03-22-2025 Patient encounter procedure 03/22/2025 10:20 AM EST Office Visit [facility] [address] [place] [phone] Bobbi Barker MD [address], [address] [place] [address] [facility] Start: 12-06-2024 End: 12-06-2024 Patient encounter procedure 12/06/2024 9:50 AM EDT Office Visit [facility] [address] [place] [phone] Bobbi Barker MD [address] [place] [address] [facility] Start: 11-30-2024 End: 11-30-2024 Patient encounter procedure [facility] Comment on above: Arrived Start: 11-24-2024 End: 11-24-2024 Patient encounter procedure 11/24/2024 11:15 AM EDT Office Visit [facility] [place] [facility] [address] [place] [phone] Shelton Triana, DPM [address] [place] [address] [facility] [place] [facility] Start: 11-20-2024 End: 11-20-2024 Patient encounter procedure [facility] [place] [facility] Comment on above: Arrived Start: 11-06-2024 End: 11-06-2024 Patient encounter procedure [facility] [place] [facility] Comment on above: Arrived Start: 11-03-2024 End: 11-03-2024 Patient encounter procedure 11/03/2024 10:30 AM EDT Office Visit [facility] [place] [facility] [address] [place] [phone] Shelton Triana, DPM [address] [place] [address] Arrived [facility] [place] [facility] Comment on above: Arrived Start: 09-29-2024 End: 09-29-2024 Patient encounter procedure [facility] Comment on above: Arrived Start: 07-07-2024 End: 07-07-2024 Patient encounter procedure 07/07/2024 8:15 AM EDT Office Visit [facility] [address] [place] [phone] Shelton Triana, DPM [address] [place] [address] Arrived [facility] Comment on above: Arrived Start: 06-07-2024 End: 06-07-2024 Patient encounter procedure 06/07/2024 10:20 AM EST Office Visit [facility] [address] [place] [address] Bobbi Barker MD [address] [place] [address] Arrived [facility] Comment on above: Arrived Start: 09-27-2023 End: 09-27-2023 Patient encounter procedure 09/27/2023 10:55 AM EDT Office Visit [facility] [address] [place] [phone] Joselo Thrasher, INTELLIGENCE OPERATIONS SPECIALIST-RN HOME CARE [address] [place] [address] [facility] Start: 06-23-2023 End: 06-23-2023 Patient encounter procedure 06/23/2023 9:30 AM EDT Office Visit [facility] [address] [place] [phone] Michael Villa, DO [address] [place] [address] [facility] Start: 06-17-2023 End: 06-17-2023 Patient encounter procedure 06/17/2023 11:00 AM EDT Office Visit [facility] [address] [place] [phone] Shelton Triana, MARTINA [address] [place] [address] [facility] Start: 05-12-2023 End: 05-12-2023 Patient encounter procedure 05/12/2023 9:45 AM EST Office Visit [facility] [address] [place] [phone] Michael Villa, DO [address] [place] [address] Traumatic closed displaced fracture of right shoulder with anterior dislocation with routine healing, subsequent encounter (Primary Dx) [facility] Comment on above: Traumatic closed displaced fracture of r ight shoulder with anterior dislocation with routine healing, subsequent encounter (Primary Dx) Start: 12-23-2021 GENTRY, Provider: Kenroy Low, Status: Pen, Time: 2:40 PM GENTRY, Provider: Kenroy Low, Status: Pen, Time: 2:40 PM [facility] [address] Work Phone: Dermatopathology exam Dermatopat hology exam Pathology and Cytology Timed Neoplasm of unspecified behavior of bone, soft tissue, and skin Release Upon Ordering for 1 Occurrences starting 09/29/2024 [facility] Work Phone: Comment on above: Release Upon Ordering for 1 Occurrences starting 09/29/2024 Dermatopathology exam Dermatopat hology exam Pathology and Cytology Timed Basal cell carcinoma (BCC) of chest Release Upon Ordering for 1 Occurrences starting 11/06/2024 [facility] Work Phone: Comment on above: Release Upon Ordering for 1 Occurrences starting 11/06/2024 Patient Education Shoulder Dislocation [facility] Work Phone: Patient referral [facility] Work Phone: Immunizations Immunization Date Immunization Notes Care Provider Vamsi peña 12-27-2023 influenza virus vaccine, unspecified formulation Randolph Shah [facility] 12-22-2022 influenza virus vaccine, unspecified formulation Arley Keller [facility] 12-22-2022 Influenza, Seasonal, Quadrivalent, Adjuvanted Bobbi Barker MD Work Phone: [facility] 01-22-2022 influenza virus vaccine, unspecified formulation Micaela Palomino [facility] 01-22-2022 Influenza, Seasonal, Quadrivalent, Adjuvanted Bobbi Barker MD Work Phone: [facility] 01-17-2020 Fluad Quadrivalent 0 .5 ML Intramuscular Prefilled Syringe Bree E Ambrose Work Phone: [facility] 01-17-2020 influenza virus vaccine, unspecified formulation Micaela Candelario [facility] 01-04-2019 influenza virus vaccine, unspecified formulation Micaela Candelario [facility] 01-04-2019 Seasonal trivalent influenza vaccine, adjuvanted, preservative free Bree Ambrose Work Phone: [facility]Pl[facility] [address] Work Phone: 12-31-2017 influenza virus vaccine, unspecified formulation Micaela Canedlario [facility] 12-31-2017 Influenza, injectabl e, Madin [place] Canine Kidney, preservative free, quadrivalent Bree Ambrose Work Phone: [facility]Exacyvntef[facility] [address] Work Phone: 02-16-2017 influenza virus vaccine, unspecified formulation Micaela Candelario [facility] 02-16-2017 influenza, injectabl e, quadrivalent, preservative free Bree Ambrose Work Phone: [facility]Pkmycghjql[facility]Wn[facility] Work Phone: 04-05-2015 pneumococcal polysaccharide vaccine, 23 valent Bree Ambrose Work Phone: [facility] 02-03-2015 influenza virus vaccine, unspecified formulation Arley Keller [facility] 02-03-2015 influenza, injectabl e, madin tejas canine kidney, preservative free Bree Ambrose Work Phone: JT[facility]Ywwnojdtqs[facility]Inoi [facility] Work Phone: 11-21-2014 pneumococcal conjuga te vaccine, 13 valent Bree Ambrose Work Phone: [facility] [place] NEGATED: Highlighted row has not occurred!08-04-2022 SARS-CoV-2 mRNA (tozinameran 5y-11y) vaccine Arley Keller [facility] Payers Date Payer Category Payer Self-pay [id number] 2024 Medicare (Managed Care) [facility] MEDICARE [id number] 2024 Private Health Insurance [id number] 2022 Medicare [id number] 1959 Medicare [id number] 1959 Unknown [id number] 1959 Unknown [id number] 1953 Unknown [id number] 2.840.1.781158.3.579. 2.355 1953 Unknown [id number] 2.16840.1.730201.3.579. 2. 1953 Unknown [id number] 2.16.840.1.725671.3.579. 2. 1953 Unknown [id number] 2.16840.1.003653.3.579. 2.355 1953 Unknown [id number] 2.16.840.1.563191.3.579. 2.355 1953 Unknown [id number] 2.16.840.1.757827.3.579. 2.356 1953 Unknown [id number] 2.16.840.1.747124.3.579. 2.356 1953 Unknown [id number] 2.16.840.1.078662.3.579. 2.593 1953 Unknown [id number] 2.16.840.1.959155.3.579. 2.593 1953 Unknown [id number] 2.16.840.1.893542.3.579. 2.593 1953 Unknown [id number] 2.16.840.1.019686.3.579. 2.593 1953 Unknown [id number] 2.16.840.1.509873.3.579. 2.72 1953 Unknown [id number] 2.16.840.1.026596.3.579. 2.72 1953 Unknown [id number] 2.16.840.1.398943.3.579. 2.727 1953 Unknown [id number] 2.16.840.1.453134.3.579. 2.727 1953 Unknown [id number] 2.16.840.1.161791.3.579. 2.727 1953 Unknown [id number] 2.16.840.1.324272.3.579. 2.727 1953 Unknown [id number] 2.16.840.1.652594.3.579. 2.72 1953 Unknown [id number] 2.16.840.1.699045.3.579. 2.72 1953 Unknown [id number] 2.16.840.1.882734.3.579. 2.72 1953 Unknown [id number] 2.16.840.1.227035.3.579. 2.727 1953 Unknown [id number] 2.16.840.1.531061.3.579. 2.72 1953 Unknown [id number] 2.16.840.1.947266.3.579. 2.1259 1953 Unknown [id number] 2.16.840.1.409618.3.579. 2.1258 1953 Unknown [id number] 2.16.840.1.653357.3.579. 2.1258 1953 Unknown [id number] 2.16.840.1.375895.3.579. 2.1258 1953 Unknown [id number] 2.16.840.1.991599.3.579. 2.1258 1953 Unknown [id number] 2.16.840.1.988328.3.579. 2.1258 1953 Unknown [id number] 2.16.840.1.048479.3.579. 2.1258 1953 Unknown [id number] 2.16.840.1.827747.3.579. 2. 1953 Unknown [id number] 2.16.840.1.992101.3.579. 2.72 1953 Unknown [id number] 2.16.840.1.076361.3.579. 2.72 1953 Unknown [id number] 2.16.840.1.513140.3.579. 2.72 1953 Unknown [id number] 2.16.840.1.147157.3.579. 2.72 1953 Unknown [id number] 2.16.840.1.317929.3.579. 2.72 1953 Unknown [id number] 2.16.840.1.863212.3.579. 272 Unknown [id number] Unknown Unknown [id number] Unknown [id number] 2.16.840.1.808505.3.579. 2.531 Unknown [id number] 2.16.840.1.842856.3.579. 2.531 Social History Date Type Detail Facility Start: 04-21-2023 End: 11-30-2024 No illicit drug use No illicit drug use [facility] [address] [facility] Work Phone: Start: 06-30-2022 End: 08-31-2024 Tobacco smoking status Never smoked tobacco (finding) [facility] Comment on above: denies use Tobacco smoking status Never [facility] Comment on above: denies use Start: 04-21-2023 End: 11-30-2024 Sex Assigned At Female [facility] Start: 1955 Sex Assigned At Female [facility] Start: 04-21-2023 End: 09-17-2023 Tobacco smoking status NHIS Ex-smoker [facility] Start: 06-03-1964 End: 06-04-1979 History of tobacco use Current smoker [facility] Start: 06-03-1964 End: 06-04-1979 History of tobacco use Cigarette Smoker [facility] Start: 04-21-2023 End: 09-17-2023 Tobacco use and exposure Smokeless tobacco non-user [facility] Start: 04-21-2023 End: 11-30-2024 Alcohol intake Lifetime non-drinker (finding) [facility] Start: 09-19-2022 Alcohol Comment Caffeine: soda [facility] Start: 04-17-2023 Gender identity Identifies as female gender (finding) [facility] Start: 04-17-2023 Sexual orientation Heterosexual (fin ding) [facility] Start: 12-17-2020 End: 04-26-2024 Sex Female (finding) [facility] Sexual Orientation [facility] Clinical Notes 05-12-2023 to 12-18-2024 Bobbi Barker MD - 11/30/2024 10:20 AM Cassy Foley MD - 11/20/2024 11:00 AM Cassy Foley MD - 11/06/2024 3:30 PM Heriberto Triana DPM - 11/03/2024 10:30 AM EDTRadiologyRadiology Note Date & Type Note Facility 12-18-2024 Note Patient Education Emergency Medicine Heart Attack A heart attack occurs when blood and oxygen supply to the heart is cut off. A heart attack can cause damage to the heart that cannot be fixed. A heart attack is also called a myocardial infarction, or WV. If you think you are having a heart attack, do not wait to see if the symptoms will go away. Get medical help right away. What are the causes? This condition may be caused by: ??? A fatty substance (plaque) in the blood vessels (arteries). This can block the flow of blood to the heart. ??? A blood clot in the blood vessels that go to the heart. The blood clot blocks blood flow. ??? An abnormal heartbeat. ??? Some diseases, such as problems in red blood cells (anemia)orproblems in breathing (respiratory failure). ??? Tightening (spasm) of a blood vessel that cuts off blood to the heart. ??? A tear in a blood vessel of the heart. Other causes may include: ??? Using drugs such as cocaine or methamphetamine. ??? Low blood pressure. What increases the risk? Aging. The risk gets higher as you get older. ??? Having a personal or family history of chest pain, heart attack, stroke, or narrowing of the arteries in the legs, arms, head, or stomach (peripheral vascular disease). ??? Having taken chemotherapy or immune-suppressing medicines. ??? Being male. ??? Being overweight or obese. ??? Having any of these conditions: ? High blood pressure. ? High cholesterol. ? Diabetes. ??? Making lifestyle choices such as: ? Drinking too much alcohol. ? Not getting regular exercise. ? Smoking. What are the signs or symptoms? Chest pain. It may feel like: ? Crushing or squeezing. ? Tightness, pressure, fullness, or heaviness. ??? Pain in the arm, neck, jaw, back, or upper body. ??? Heartburn. ??? Upset stomach (indigestion). ??? Shortness of breath. ??? Feeling like you may vomit (nauseous). ??? Cold sweats. ??? Sudden light-headedness, dizziness, or passing out. ??? Feeling tired. How is this treated? A heart attack must be treated as soon as possible. Treatment may include: ??? Medicines to: ? Break up or dissolve blood clots. ? Thin your blood and help prevent blood clots. ? Treat blood pressure. ? Improve blood flow to the heart. ? Reduce pain. ? Reduce cholesterol. ??? Procedures to widen a blocked artery and keep it open. ??? Open heart surgery. ??? Making your heart strong again (cardiac rehabilitation) through exercise, education, and counseling. Follow these instructions at home: Medicines ??? Take xkcy-yao-tjgnylo and prescription medicines only as told by your doctor. ??? Do not take these medicines unless your doctor says it is okay: ? NSAIDs, such as ibuprofen, naproxen, or celecoxib. ? Any vitamins or supplements. ? Hormone replacement therapy that has estrogen with or without progestin. ??? If you are taking blood thinners: ? [...] shows you are taking blood thinners. Lifestyle ??? Do not smoke or use any products that contain nicotine or tobacco. If you need help quitting, ask your doctor. ??? Avoid secondhand smoke. ??? Exercise regularly. Ask your doctor about a cardiac rehab program. ??? Eat heart-healthy foods. Your doctor will tell you what foods to eat. ??? Stay at a healthy weight. ??? Learn ways to lower your stress level. ??? Do not use illegal drugs. Alcohol use ??? Do not drink alcohol if: ? Your doctor tells you not to drink. ? You are , may be , or are planning to become . ??? If you drink alcohol: ? Limit how [...] of hard liquor (44 mL). General instructions ??? Work with your doctor to treat other problems you may have, such as diabetes or high blood pressure. ??? Get screened for depression. Get treatment if needed. ??? Keep your vaccines up to date. Get the flu shot (influenza vaccine) every year. ??? Keep all follow-up visits. Contact a doctor if: ??? You feel very sad. ??? You have trouble doing your daily activities. ??? You get light-headed or dizzy. Get help right away if: ??? You have sudden, unexplained discomfort in your chest, arms, back, neck, jaw, or upper body. ??? You have shortness of breath. ??? You have sudden sweating or clammy skin. ??? You feel like you may vomit or you vomit. ??? You fe (more content not included)... [facility] 11-30-2024 History of Present illness Narrative Lj Doll is a 69 y.o. female No ref. provider found presents with chief complaint of Diabetes HPI: Interim history: 11/2024 Followup visit 11/30/2024 for A1c in the office 7. Blood sugar is 217. CGM in 0% low range, 90% good range, 10% in high range, average 144. She is on Lantus 20. Metformin 850 twice a day, Ozempic 1 mg daily. CGM 0-90-20 avg 144. Lab done with her PCP. Interim history: 06/2024 Followup visit 06/07/2024 for [...] I used to follow her back on 2019 for high ALK-PH. Interim History 12/22: Followup [...] AST 40, ALT 97 (5-52). Went to degreaser in ____ hospital and has fatty liver [...] RT colchicine 0.6 mg, Daily Continuous Glucose Landscaping Manager (FreeStyle Denny 3 Big Flat) device Continuous Glucose Sensor (FreeStyle Denny 3 Plus Sensor) misc 1 kit, Does not apply, Every 15 Days Continuous Glucose Sensor (FreeStyle Denny 3 Sensor) misc etanercept (Enbrel) 50 MG/ML injection 1 mL, Weekly ferrous sulfate 325 (65 Fe) MG tablet 1 tablet, Daily with breakfast fluticasone (Flonase) 50 MCG/ACT nasal spray 1 spray, Daily folic acid (FOLVITE) 1 mg, Daily RT furosemide (LASIX) 20 mg, Daily gabapentin (NEURONTIN) 200 mg, 2 times daily hydroxychloroquine (PLAQUENIL) 200 mg, Daily insulin lispro (HUMALOG KWIKPEN) 3 Units, Subcutaneous, 3 times daily with meals Lantus SoloStar 100 UNIT/ML pen Every morning lisinopril 5 MG tablet metFORMIN (GLUCOPHAGE) 850 mg, Daily montelukast (SINGULAIR) 10 mg Multiple Vitamin (multivitamin) capsule 1 capsule, Daily Ozempic, 1 MG/DOSE, 4 MG/3ML solution pen-injector pantoprazole (PROTONIX) 40 mg, Daily before breakfast rosuvastatin (CRESTOR) 20 mg, Daily sertraline (ZOLOFT) 50 mg, Daily zoledronic acid (RECLAST) 5 mg, Once ALLERGIES: Allergies Allergen Reactions Adalimumab Other Reaction(s): Hives Diclofenac Other Reaction(s): does not help Diphenhydramine Other Reaction(s): brain fog, VERY FOGGY BRAIN Other Oxaprozin Other Reaction(s): INEFFECTIVE Oxycodone-Acetaminophen Nausea And Vomiting Statins Other Reaction(s): MUSCLE CRAMPS, Myalgia Past Medical History: Diagnosis Date Anemia ASCVD (arteriosclerotic cardiovascular disease) Basal cell carcinoma Bone spur of right foot Bunion Chronic kidney disease, stage 3 (CMS-HCC) Coronary artery disease (CAD) excluded CTS (carpal tunnel syndrome) Diabetes (HCC) Dietary counseling and surveillance DM (diabetes mellitus), type 2 (HCC) Dupuytren's contracture Elevated alkaline phosphatase level Fibromyalgia Fracture, foot Ganglion GERD (gastroesophageal reflux disease) Glaucoma suspect Hammer toe Hiatal hernia History of medical treatment hydroxycholornique use Hyperlipidemia retirement (current) use of insulin (HCC) Neuroma of foot Obesity Osteoporosis Other specified abnormal findings of blood chemistry Peripheral neuropathy Rheumatoid arthritis (HCC) Steatosis, liver Stress fracture Trigger finger trigger RT RF and thumb Type 2 diabetes mellitus with hyperglycemia (HCC) Upper GI bleed 10/2018 Vitamin D deficiency [...] Lab Results Component Value Date HGBA1C 7.0 11/30/2024 HGBA1C 7.0 06/07/2024 Lab Results Component Value Date GLU 217 11/30/2024 GLU 193 06/07/2024 06/17/2023 11:22 AM 06/23/2023 9:27 AM 08/05/2023 1:39 PM 09/17/2023 8:04 AM 12/08/2023 9:22 AM 06/07/2024 10:16 AM 11/30/2024 10:26 AM Vitals BMI 34.56 kg/m2 34.9 kg/m2 34.54 kg/m2 34.44 kg/m2 BSA (m2) 1.96 m2 1.99 m2 1.98 m2 1.98 m2 Systolic 101 120 122 112 120 Diastolic 64 61 68 64 64 Heart Rate 85 86 74 63 76 77 SpO2 98 % 96 % 94 % Temp 97.3 F 97.4 F 98.2 F 97.3 F Resp 16 16 18 Height (in) 5' 2.5 5' 3 5' 3 5' 3 Weight (lb) 192 197 195 194.4 Visit Report Report Report Report Report Report Report ASSESSMENT AND PLAN: Assessment/Plan Diagnoses and all orders for this visit: Type 2 diabetes mellitus with hyperglycemia, with long-term current use of insulin (HCC) - POCT glycosylated hemoglobin (Hb A1C) docked device - POCT glucose manually resulted - insulin lispro (HumaLOG KWIKPEN) 100 UNIT/ML injection; Inject 3 Units under the skin in the morning and 3 Units at noon and 3 Units in the evening. Inject with meals. We will continue with Lantus 20 units, metformin 850 once a day, Ozempic 1 mg once a week. H ISS prn only, sent Vitamin D deficiency Insulin long-term use (HCC) Primary hypertension Hyperlipemia, mixed Encounter for dietary consultation Class 1 obesity due to excess calories with serious comorbidity and body mass index (BMI) of 34.0 to 34.9 in adult Diet and exercise reviewed with the patient Follow up in about 4 months (around 04/01/2025). Answers submitted by the patient for this visit: Diabetes Questionnaire (Submitted on 11/29/2024) Chief Complaint: Diabetes problem Diabetes type: type 2 MedicAlert ID: No Disease duration: 31 Years blurred vision: No chest pain: No fatigue: Yes foot paresthesias: Yes foot ulcerations: No polydipsia: No polyphagia: No polyuria: No visual change: No weakness: No weight loss: Yes Symptom course: stable confusion: No speech difficulty: No dizziness: No nervous/anxious: No hunger: No mood changes: No pallor: Yes seizures: No tremors: Yes sweats: No hospitalization: No nocturnal hypoglycemia: Yes required assistance: No required glucagon: No CVA: No heart disease: Yes impotence: No nephropathy: No peripheral neuropathy: Yes PVD: No retinopathy: No CAD risks: family history, obesity Current treatments: insulin injections Treatment compliance: all of the time Dose schedule: at bedtime Given by: patient Injection sites: abdominal wall Home blood tests: 3-4 x per day Home urines: <1 x per month Monitoring compliance: excellent Blood glucose trend: no change breakfast time: 8-9 am breakfast glucose level: 90-110 lunch time: 11-12 pm lunch glucose level: 110-130 dinner time: 6-7 pm dinner glucose level: 140-180 Bedtime: 10-11 pm Bedtime glucose level: 110-130 High score: 140-180 Overall: 110-130 Weight trend: decreasing steadily Current diet: diabetic, generally healthy Meal planning: none Exercise: intermittently Dietitian visit: No Eye exam current: Yes Sees weather clerk: Yes documented in this encounter [facility] 11-20-2024 History of Present illness Narrative Images [...] Visit: as scheduled documented in this encounter [facility] 11-06-2024 History of Present illness Narrative Images from the original note were not included. Tato Doll is a 69 y.o. female who presents for the following: Excision. Location: [facility] chest Date of biopsy: 09/29/2024 Diagnosis: Basal [...] CELL CARCINOMA (BCC) OF CHEST Med chest Revillo macule at the biopsy site. Skin excision [...] types Check Margins: yes Previous accession number: [id number] Diagnosis: (C44.519) Basal cell carcinoma (BCC) of chest Plan: Skin excision Excision today. See operative report. Return to clinic prior to next scheduled visit for any signs or symptoms of recurrence, reviewed the signs and symptoms. Follow up: 14 days for s/r documented in this encounter [facility] 11-03-2024 History of Present illness Narrative [...] depth diabetic shoes (A5500), Dr. Sara Roberson #[id number] purple size 11XW, which fit patient well [...] depth diabetic shoes (A5500), Dr. Sara Roberson #[id number] purple size 11XW, which fit patient well [...] weeks for recheck. documented in this encounter [facility] 09-29-2024 History of Present illness Narrative [...] limited to risks of scarring, darker or rod bending machine operator pigmentary changes, recurrence, incomplete removal and infection. [...] BONE, SOFT TISSUE, AND SKIN Medial Chest Revillo papule Lesion biopsy Type of biopsy: tangential [...] Visit: 1 year documented in this encounter [facility] 07-07-2024 History of Present illness Narrative [...] pair of diabetic shoes (DR.Comfort Karol browning #[id number] 11 XW) as well reappointment orthotics and [...] of skin breakdown. documented in this encounter [facility] 06-07-2024 History of Present illness Narrative [...] is following with Dr. Benavides, just started [employer] last month with him for osteoporosis. She [...] AST 40, ALT 97 (5-52). Went to degreaser in ____ hospital and has fatty liver [...] RT colchicine 0.6 mg, Daily Continuous Glucose Landscaping Manager ([employer] YetStyle Denny 3 Big Flat) device etanercept (Enbrel) 50 MG/ML injection 1 [...] Bunion Chronic kidney disease, stage 3 (HCC) (CMS/[facility]) Coronary artery disease (CAD) excluded CTS (carpal tunnel syndrome) Diabetes (CMS/HCC) Dietary counseling and surveillance DM (diabetes mellitus), type 2 (CMS/HCC) Dupuytren's contracture Elevated alkaline phosphatase level Fibromyalgia Fracture, foot Ganglion GERD (gastroesophageal reflux disease) Glaucoma suspect Hammer toe Hiatal hernia History of medical treatment hydroxycholornique use Hyperlipidemia (CMS/HCC) 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 Vitamin D deficiency Insulin long-term use (CMS/HCC) Primary hypertension (CMS/HCC) Hyperlipemia, mixed ([facility]/HCC) Encounter for dietary consultation Diet and exercise reviewed with the patient Class 1 obesity due to excess calories with serious comorbidity and body mass index (BMI) of 34.0 to 34.9 in adult Follow up in about 6 months (around 12/08/2024). documented in this encounter [facility] 02-29-2024 Note Patient Education Nutrition BMI [...] for Disease Control and Prevention: cdc.gov ??? [place] Heart Association: heart.org ??? National Heart, Lung, and Blood [place]: nhlbi.nih.gov This information is not intended to replace advice given to you by your health care provider. Make sure you discuss any questions you have with your health care provider. Document Revised: 12/10/2022 Document Reviewed: 12/03/2022 [employer] Patient Education ? 2023 [employer]. [facility] 12-16-2023 Note Patient Education Emergency Medicine Heart Attack A heart attack occurs when blood and oxygen supply to the heart is cut off. A heart attack can cause damage to the heart that cannot be fixed. A heart attack is also called a myocardial infarction, or WV. If you think you are having a [...] these instructions at home: Medicines ? Take mjfl-ean-ldseund and prescription medicines only as told by [...] beats. ? You (more content not included)... [facility] 11-08-2023 Note [facility] Cardiology Clinic Note Chief Complaint: Patient [...] Allergies Adalimumab, Diclofenac, Diphenhydramine, Oxaprozin, Oxycodone-acetaminophen, and Vxzjbdw-avu-qtz reductase inhibitors Medications Current Outpatient Medications: amitriptyline [...] Carotid US Ech (more content not included)... [facility] 05-12-2023 History of Present illness Narrative Images [...] stents placed CARPAL TUNNEL RELEASE COLONOSCOPY 2008, 19 CYST REMOVAL ganglion B/L wrist EGD 2019 gastric polyps FOOT SURGERY Right excision of [...] disease Father Brain cancer Sibling Cancer Brother Jean Carlos Deal Rheumatologic disease Sister Danna Keen Melanoma Neg [...] saved to the permanent record in the [place] office. ASSESSMENT AND PLAN: Assessment/Plan Follow up [...] these. Physical therapy script was sent to [place] for evaluation and treat three times a [...] took 35 minutes. documented in this encounter [facility] Healthcare Evaluation + Plan note Future Appointments Appointment Date:08/04/2022 10:40:00 AM Scheduled Provider:BREE AMBROSE MD Location:[facility] Appointment Type: Open Diagnostic Tests PendingUrine Culture 06/30/22 [facility] Evaluation + Plan note Future Appointments Appointment Date:12/14/2023 09:30:00 AM Scheduled Provider: Location:[facility] Appointment Type:FM Medicare Wellness Subsequent Appointment Date:02/29/2024 09:15:00 AM Scheduled Provider:Arley Keller MD Location:[facility] Appointment Type:[facility] Evaluation + Plan note Future Appointments Appointment Date:02/29/2024 09:15:00 AM Scheduled Provider:Arley Keller MD Location:[facility] Appointment Type: Open Appointment Date:12/18/2024 01:00:00 PM Scheduled Provider: Location:[facility] Appointment Type:FM Medicare Wellness Subsequent Diagnostic Tests PendingHCV Antibody RFX to Quant PCR 12/21/23 Future Scheduled TestsMA Mamm Screen w/CAD if perf and 3D Jt 12/16/23 [facility] Evaluation + Plan note Future Appointments Appointment Date:05/19/2024 11:15:00 AM Scheduled Provider:Randolph Shah [facility] [place] App[facility]ment Type:Cardiology New Patient (FT) Appointment Date:08/29/2024 09:15:00 AM Scheduled Provider:Arley Keller MD Location:[facility] Appointment Type: Open Appointment Date:12/18/2024 01:00:00 PM Scheduled Provider: Location:[facility] Appointment Type:FM Medicare Wellness Subsequent Future Scheduled TestsMA Mamm Screen w/CAD if perf and 3D Jt 12/16/23 [facility] Evaluation + Plan note Future Appointments Appointment Date:06/02/2024 11:15:00 AM Scheduled Provider:Randolph Shah [facility] [place] App[facility]ment Type:Cardiology New Patient (FT) Appointment Date:08/29/2024 09:15:00 AM Scheduled Provider:Arley Keller MD Location:[facility] Appointment Type: Open Appointment Date:12/18/2024 01:00:00 PM Scheduled Provider: Location:[facility] Appointment Type: Medicare Wellness Subsequent Future Scheduled TestsMA Mamm Screen w/CAD if perf and 3D Jt 12/16/23 [facility] Evaluation + Plan note Future Appointments Appointment Date:08/29/2024 09:15:00 AM Scheduled Provider:Arley Keller MD Location:[facility] Appointment Type: Open Appointment Date:12/18/2024 01:00:00 PM Scheduled Provider: Location:[facility] Appointment Type: Medicare Wellness Subsequent Future Scheduled TestsLipid Panel 06/02/24MA Mamm Screen w/CAD if perf and 3D Jt 12/16/23 [facility] Evaluation + Plan note Future Appointments Appointment Date:12/18/2024 01:00:00 PM Scheduled Provider: Location:[facility] Appointment Type: Medicare Wellness Subsequent Future Scheduled TestsLipid Panel 25US PVR Lower EXT Complete Bilat 08/31/[place] Mamm Screen w/CAD if perf and 3D Jt 12/16/23 [facility] Evaluation + Plan note Future Appointments Appointment Date:12/18/2024 01:00:00 PM Scheduled Provider: Location:[facility] Appointment Type: Medicare Wellness Subsequent Future Scheduled TestsLipid Panel 06/02/25MA Mamm Screen w/CAD if perf and 3D Jt 12/16/23 [facility] Evaluation note No assessment inform [facility] Work Phone: Evaluation note Diagnosis Traumatic closed displaced fracture of right shoulder with anterior dislocation with routine healing, subsequent encounter- Primary [facility] encounter [facility] Diagnosis Type 2 diabetes mellitus with hyperglycemia, with long-term current use of insulin ([facility])- Primary Vitamin D deficiency Insulin long-term use (CMS/HCC) Encounter for long-term (current) use of insulin Primary hypertension (CMS/HCC) Unspecified essential hypertension Hyperlipemia, mixed ([facility]) Mixed hyperlipidemia Encounter for dietary consultation Class 1 obesity due to excess calories with serious comorbidity and body mass index (BMI) of 34.0 to 34.9 in adult documented [facility] this encounter [facility] Diagnosis Type II diabetes mellitus with neurological manifestations ([facility]) Type II or unspecified type diabetes mellitus [...] sutures- Primary [facility] encounter [facility] Diagnosis Type 2 diabetes mellitus with hyperglycemia, with long-term current use of insulin ([facility])- Primary Vitamin D deficiency Insulin long-term use ([facility]) Encounter for long-term (current) use of insulin Primary hypertension Unspecified essential hypertension Hyperlipemia, mixed Mixed hyperlipidemia Encounter for dietary consultation Class 1 obesity due to excess calories with serious comorbidity and body mass index (BMI) of 34.0 to 34.9 in adult documented in this encounter [facility] [...] * Cardiovascular: there are no cardiovascular symptoms. [id number] Work Phone: Hospital course Narrative No data available for this section [facility] No data available for this section [facility] Additional Instructions Follow-up with orthopedic doctor provided [facility] ED if develop worsening [facility] Work [facility]: Progress note No data available for this section [facility] Summary Purpose Family History No Family [...] R.S. Note Recipients: Bree Ambrose MD - [id number] [] Discharge: Summary: Admission Date: .20-Oct-2018 10:48:00 Discharge Date: 22-Oct-2018 Attending Physician at Discharge: Jeffrey Crowell Admission Reason: Coughing up blood, syncope(1) Final Discharge Diagnoses: Gastrointestinal hemorrhage with hematemesis, hiatal hernia Procedures: EGD: no biopsies; no evidence of bleeding; hiatal hernia noted Condition at Discharge: Satisfactory Disposition at Discharge: .Home Vital Signs: T [id number] [id number]% Date/Time10/22 7: 7: 7: 7: 7:22 Range(35.9C [...] dislocation with routine healing, subsequent encounter Procedures [place] [facility] 60 MINUTES Michael Villa, DO [address] [place] [address] [facility] [address] [facility], [address] Referral ID Status Reason Start Date Expiration Date Visits Requested Visits Authorized [id number] Authorized Specialty Services Required 05/12/2023 11/08/2023 1 1 Additional Source Comments INFORMATION SOURCE (unrecogn ized section and content) DATE CREATED AUTHOR 09/28/[address] [facility] DATE CREATED AUTHOR AUTHOR'S ORGANIZ ATION 06/07/2018 [facility] DATE CREATED AUTHOR AUTHOR'S ORGANIZ ATION 11/01/2018 [facility] DATE CREATED AUTHOR AUTHOR'S ORGANIZ ATION 12/14/2020 [facility] DATE CREATED AUTHOR AUTHOR'S ORGANIZ ATION 01/04/2022 [facility] DATE CREATED AUTHOR AUTHOR'S ORGANIZ ATION 01/08/2022 [facility] DATE CREATED AUTHOR AUTHOR'S ORGANIZ ATION 06/05/2022 [facility] DATE CREATED AUTHOR AUTHOR'S ORGANIZ ATION 09/01/2023 [facility] DATE CREATED AUTHOR AUTHOR'S ORGANIZ ATION 12/25/2023 [facility] DATE CREATED AUTHOR AUTHOR'S ORGANIZ ATION 04/14/2024 [facility] DATE CREATED AUTHOR AUTHOR'S ORGANIZ ATION 06/05/2024 [facility] DATE CREATED AUTHOR AUTHOR'S ORGANIZ ATION 09/03/2024 [facility] DATE CREATED AUTHOR AUTHOR'S ORGANIZ ATION 10/19/2024 [facility] DATE CREATED AUTHOR AUTHOR'S ORGANIZ ATION 11/11/2024 [facility] DATE CREATED AUTHOR AUTHOR'S ORGANIZ ATION 12/02/2024 [facility] DATE CREATED AUTHOR AUTHOR'S ORGANIZ ATION 12/19/2024 [facility] DATE CREATED AUTHOR AUTHOR'S ORGANIZ ATION 12/29/2024 [facility] Patient Care team informatio n (unrecognized section [...] Arley Keller MD Primary Care Provider Active Group Managing Director Relationship Specialty Start Date End Date Arley Keller MD [address] [place] [address] PCP - General Family Medicine 03/02/23 Group Managing Director Relationship Specialty Start Date End Date Arley Keller MD [address] [place] [address] PCP - General Family Medicine 03/02/23 Team [...] May 09, 2024 End: May 09, 2024 Group Managing Director Relationship Specialty Start Date End Date Arley Keller MD [address] [place] [address] PCP - General Family Medicine 03/02/23 Group Managing Director Relationship Specialty Start Date End Date Arley Keller MD [address] [place] [address] PCP - General Family Medicine 03/02/23 Group Managing Director Relationship Specialty Start Date End Date Arley Keller MD [address] [place] [address] PCP - General Family Medicine 03/02/23 Group Managing Director Relationship Specialty Start Date End Date Arley Keller MD [address] [place] [address] PCP - General Family Medicine 03/02/23 Group Managing Director Relationship Specialty Start Date End Date Arley Keller MD [address] [place] [address] PCP - General Family Medicine 03/02/23 Group Managing Director Relationship Specialty Start Date End Date Arley Keller MD [address] [place] [address] PCP - General Family Medicine 03/02/23 Group Managing Director Relationship Specialty Start Date End Date Arley Keller MD [address] [place] [address] PCP - General Family Medicine 03/02/23 Group Managing Director Relationship Specialty Start Date End Date Arley Keller MD [address] [place] [address] PCP - General Family Medicine 03/02/23 Group Managing Director Relationship Specialty Start Date End Date Arley Keller MD [address] [place] [address] PCP - General Family Medicine 03/02/23 Group Managing Director Relationship Specialty Start Date End Date Arley Keller MD [address] [place], [place] [id number] PCP - General Family Medicine 03/02/23 Goals (unrecognized section and content) Goals [...] BE BASED ON THE PRIMARY CLINICAL RECORDS. [facility]. provides no warranty or guarantee of the accuracy or completeness of information in this document.
[2025-01-10 10:28] LABS: Hematocrit 35.5 % (36.0-48.0); Hemoglobin 11.4 g/dL (12.0-16.0); Immature Granulocytes Abs Auto 0.03 10^3/uL (0.00-0.03); Immature Granulocytes Pct Auto 0.4 % (0.0-0.5); Lymphocytes Absolute Auto 2.5 10^3/uL (1.2-3.8); Mean Corpuscular HGB Conc 32.1 g/dL (29.9-35.2); Mean Corpuscular Hemoglobin 28.7 pg (26.7-34.0); Mean Corpuscular Volume 89.4 fL (81.0-99.0); Platelet Count 250 10^3/uL (150-450); Red Blood Count 3.97 10^6/uL (4.20-5.40); White Blood Count 7.9 10^3/uL (4.0-11.0)
[2025-01-10 16:45] LABS: Alanine Aminotransferase 44 U/L (14-59); Albumin Globulin Ratio 1.0; Albumin Level 3.7 g/dL (3.4-5.0); Alkaline Phosphatase 102 U/L (46-116); Anion Gap 12.2; Aspartate Amino Transferase 25 U/L (15-37); Blood Urea Nitrogen 22.0 mg/dL (7.0-18.0); Calcium 8.8 mg/dL (8.5-10.1); Carbon Dioxide 26.0 mmol/L (21.0-32.0); Chloride 104 mmol/L (98-107); Estimated GFR (African America 55 (>=60 mL/min/1.73m^2); Estimated GFR (Non-African Ame 45 (>=60 mL/min/1.73m^2); Globulin 3.8 g/dL; Glucose 143 mg/dL (74-106); Potassium 4.2 mmol/L (3.5-5.1); Sodium 138 mmol/L (136-145); Total Protein 7.5 g/dL (6.4-8.2)
== END 2025-01-10 09:44 | disposition home or self-care (01) ==
LOC: LAB 09:43
PROVIDERS: PCP Nurse Practitioner; Visit Provider Nurse Practitioner Family
DX: M06.09 Rheumatoid arthritis without rheumatoid factor, multiple sites (principal); Z79.899 Other long term (current) drug therapy
CPT/HCPCS: 36415; 80053; 85025; 85652; 86140